=== PATIENT | male | born 1940 | race Caucasian/White ===

== ENCOUNTER 2016-11-18 16:18 | Inpatient (IN) | payer MEDICARE ==
[2016-11-18] MEDS ORDERED: MAGNESIUM SULFATE-D5W PMX 1 GM in DEXTROSE/WATER 1 100ML.BAG IVPB STA (17:02)
[2016-11-18] MEDS ORDERED: SODIUM CHLORIDE 0.9% 1,000 ML IV STA (17:02)
[2016-11-18] MEDS ORDERED: methylPREDNISolone SOD SUCCI 125 MG/2 ML VIAL IV STA (17:02)
--- NOTE | 2016-11-18 17:05 | ED ---
SOB HPI - General Chief Complaint: Shortness of Breath Stated Complaint: DEYANIRA Time Seen by Provider: 11/18/16 16:56 Source: patient, RN notes reviewed Mode of arrival: ambulatory Limitations: no limitations - History of Present Illness Initial Comments: This is a 76-year-old male with a history of heart disease who states he had 3 or 4 days of shortness of breath with chest tightness. Tightness is 4-5/10 in severity. He has had a cough of white phlegm no fevers chills or sweats he is a former smoker but has never been diagnosed with COPD he states. No other complaints MD Complaint: shortness of breath, cough - Related Data Home Medications Medication Instructions Recorded Confirmed Calcitriol [Rocaltrol] 0.25 mcg PO MO 11/18/16 11/18/16 Fish Oil/Dha/Epa [Fish Oil 1,200 2 cap PO DAILY 11/18/16 11/18/16 mg Fish Oil] amLODIPine [Norvasc] 10 mg PO DAILY 11/18/16 11/18/16 hydrALAZINE HCL 50 mg PO TID 11/18/16 11/18/16 Allergies Allergy/AdvReac Type Severity Reaction Status Date / Time No Known Allergies Allergy Verified 11/18/16 18:21 Review of Systems ROS Statement: Those systems with pertinent positive or pertinent negative responses have been documented in the HPI. ROS Other: All systems not noted in ROS Statement are negative. Past Medical History Past Medical History: Coronary Artery Disease (CAD), GI Bleed, Hyperlipidemia, Hypertension, Myocardial Infarction ([place]), Vascular Disorder Additional Past Medical History / Comment(s): OTHER HX: [place] 2013, GI bleed, BLOOD IN STOOL, anemia, iron deficiency anemia, diverticulosis, colon polyp ( removed), PVD-pt needs bilateral leg bypass surgery but cannot have surgery unless he quits. smoking, neck fx as a young person with seizures following last one years ago. Last Myocardial Infarction Date:: 2013 History of Any Multi-Drug Resistant Organisms: None Reported Past Surgical History: Heart Catheterization With Stent Additional Past Surgical History / Comment(s): ccath with stents in 2007 and 2013, 11/19/14 EGD with bx and Colonoscopy with polypectomy, bilateral cataract removal with lens implants. Past Anesthesia/Blood Transfusion Reactions: No Reported Reaction Date of Last Stent Placement:: 2013 Past Psychological History: Anxiety Additional Psychological History / Comment(s): MILD anxiety-never tx. Pt lives with his son Jae. He has a cane which he uses prn. He is independent with his ADLs. He drives a car. He has no home care agency. Smoking Status: Current every day smoker Past Alcohol Use History: None Reported Additional Past Alcohol Use History / Comment(s): Patient smokes a 1/2 a pack of cigarettes Past Drug Use History: None Reported - Past Family History Father Family Medical History: Myocardial Infarction ([place]) Additional Family Medical History / Comment(s): Father at age 59 of a [place] Mother Family Medical History: CVA/TIA Additional Family Medical History / Comment(s): Mother of a brain hemorrage. General Exam - General Exam Comments Initial Comments: This is a well-developed well-nourished awake alert oriented history male Limitations: no limitations General appearance: alert, in no apparent distress Head exam: Present: atraumatic, normocephalic, normal inspection Eye exam: Present: normal appearance, PERRL, EOMI. Absent: scleral icterus, conjunctival injection, periorbital swelling ENT exam: Present: mucous membranes dry Neck exam: Present: normal inspection. Absent: tenderness, meningismus, lymphadenopathy Respiratory exam: Present: wheezes, accessory muscle use, decreased breath sounds. Absent: respiratory distress, rales, rhonchi, stridor Cardiovascular Exam: Present: regular rate, normal rhythm, normal heart sounds. Absent: systolic murmur, diastolic murmur, rubs, gallop, clicks GI/Abdominal exam: Present: soft, normal bowel sounds. Absent: distended, tenderness, guarding, rebound, rigid Extremities exam: Present: normal inspection, full ROM, normal capillary refill. Absent: tenderness, pedal edema, joint swelling, calf tenderness Back exam: Present: normal inspection Neurological exam: Present: alert, oriented X3, CN II-XII intact Psychiatric exam: Present: normal affect, normal mood Skin exam: Present: warm, dry, intact, normal color. Absent: rash Course Vital Signs 11/18/16 11/18/16 11/18/16 16:53 17:28 18:02 Temperature 97.5 F L Pulse Rate 90 86 84 Respiratory 20 16 15 Rate Blood Pressure 207/95 229/109 176/88 O2 Sat by Pulse 96 97 98 Oximetry 11/18/16 11/18/16 18:04 20:34 Temperature Pulse Rate 66 Respiratory 16 18 Rate Blood Pressure 225/100 O2 Sat by Pulse 95 Oximetry - Reevaluation(s) Reevaluation #1: 11/18/16 20:53 I did discuss with the patient family members regarding the findings patient initially refused admission and was to be discharged but after discussion with family members his changes minute will stay for evaluation did discuss the case with Dr. Bowen with the patient and family members. Nephrology and cardiology will be consulted. Medical Decision Making - Lab Data Result diagrams: 11/18/16 17:24 11/18/16 17:24 Lab Results 11/18/16 11/18/16 11/18/16 Range/Units 17:24 17:24 17:24 WBC 5.6 (3.8-10.6) k/uL RBC 4.76 (4.30-5.90) m/uL Hgb 14.1 (13.0-17.5) gm/dL Hct 41.4 (39.0-53.0) % MCV 87.0 (80.0-100.0) fL MCH 29.7 (25.0-35.0) pg MCHC 34.1 (31.0-37.0) g/dL RDW 13.7 (11.5-15.5) % Plt Count 151 (150-450) k/uL Neutrophils % (Manual) 51.0 % Band Neutrophils % 3.0 % Lymphocytes % (Manual) 26.0 % Monocytes % (Manual) 17.0 % Eosinophils % (Manual) 3.0 % Neutrophils # (Manual) 3.0 (1.3-7.7) k/uL Lymphocytes # (Manual) 1.5 (1.0-4.8) k/uL Monocytes # (Manual) 1.0 (0-1.0) k/uL Eosinophils # (Manual) 0.2 (0-0.7) k/uL Nucleated RBCs 0 (0-0) /100 WBC Manual Slide Review Performed RBC Morphology Normal PT (9.0-12.0) sec INR (<1.1) APTT (22.0-30.0) sec Sodium 143 (137-145) mmol/L Potassium 4.7 (3.5-5.1) mmol/L Chloride 106 (98-107) mmol/L Carbon Dioxide 22 (22-30) mmol/L Anion Gap 15 mmol/L BUN 39 H (9-20) mg/dL Creatinine 3.90 H (0.66-1.25) mg/dL Est GFR (MDRD) Af Amer 18 (>60 ml/min/1.73 sqM) Est GFR (MDRD) Non-Af 15 (>60 ml/min/1.73 sqM) Glucose 96 (74-99) mg/dL Calcium 8.4 (8.4-10.2) mg/dL Magnesium 2.1 (1.6-2.3) mg/dL Total Bilirubin 0.7 (0.2-1.3) mg/dL AST 18 (17-59) U/L ALT 25 (21-72) U/L Alkaline Phosphatase 68 (38-126) U/L Total Creatine Kinase 33 L (55-170) U/L CK-MB (CK-2) 0.5 (0.0-2.4) ng/mL CK-MB (CK-2) Rel Index 1.5 Troponin I 0.038 H* (0.000-0.034) ng/mL NT-Pro-B Natriuret Pep pg/mL Total Protein 7.4 (6.3-8.2) g/dL Albumin 4.3 (3.5-5.0) g/dL 11/18/16 11/18/16 Range/Units 17:24 17:24 WBC (3.8-10.6) k/uL RBC (4.30-5.90) m/uL Hgb (13.0-17.5) gm/dL Hct (39.0-53.0) % MCV (80.0-100.0) fL MCH (25.0-35.0) pg MCHC (31.0-37.0) g/dL RDW (11.5-15.5) % Plt Count (150-450) k/uL Neutrophils % (Manual) % Band Neutrophils % % Lymphocytes % (Manual) % Monocytes % (Manual) % Eosinophils % (Manual) % Neutrophils # (Manual) (1.3-7.7) k/uL Lymphocytes # (Manual) (1.0-4.8) k/uL Monocytes # (Manual) (0-1.0) k/uL Eosinophils # (Manual) (0-0.7) k/uL Nucleated RBCs (0-0) /100 WBC Manual Slide Review RBC Morphology PT 10.6 (9.0-12.0) sec INR 1.1 (<1.1) APTT 24.1 (22.0-30.0) sec Sodium (137-145) mmol/L Potassium (3.5-5.1) mmol/L Chloride (98-107) mmol/L Carbon Dioxide (22-30) mmol/L Anion Gap mmol/L BUN (9-20) mg/dL Creatinine (0.66-1.25) mg/dL Est GFR (MDRD) Af Amer (>60 ml/min/1.73 sqM) Est GFR (MDRD) Non-Af (>60 ml/min/1.73 sqM) Glucose (74-99) mg/dL Calcium (8.4-10.2) mg/dL Magnesium (1.6-2.3) mg/dL Total Bilirubin (0.2-1.3) mg/dL AST (17-59) U/L ALT (21-72) U/L Alkaline Phosphatase (38-126) U/L Total Creatine Kinase (55-170) U/L CK-MB (CK-2) (0.0-2.4) ng/mL CK-MB (CK-2) Rel Index Troponin I (0.000-0.034) ng/mL NT-Pro-B Natriuret Pep 2790 pg/mL Total Protein (6.3-8.2) g/dL Albumin (3.5-5.0) g/dL - EKG Data -: EKG Interpreted by Ri EKG shows normal: sinus rhythm (Sinus rhythm rate of 88. Interval 146 QRS duration 140 daily since QTC of 406/491 right bundle-branch block no acute ST-T wave changes a unifocal PVC is noted) Disposition Clinical Impression: Atypical chest pain, Bronchospasm, CHF (congestive heart failure), Renal insufficiency syndrome Disposition: ADMITTED IP TO THIS [facility] Condition: Stable
[2016-11-18 17:44] LABS: Aty Lym Flag Slight; CH 29.4; HCT 41.4 % (39.0-53.0); HDW 2.83; HGB 14.1 gm/dL (13.0-17.5); MCH 29.7 pg (25.0-35.0); MCHC 34.1 g/dL (31.0-37.0); Mean Platelet Volume 9.4; RBC 4.76 m/uL (4.30-5.90); RDW 13.7 % (11.5-15.5); WBC 5.6 k/uL (3.8-10.6); WBC (Perox) 5.27
[2016-11-18 17:45] LABS: Calcium 8.4 mg/dL (8.4-10.2); Magnesium 2.1 mg/dL (1.6-2.3); Potassium 4.7 mmol/L (3.5-5.1); Total Bilirubin 0.7 mg/dL (0.2-1.3); Total Protein 7.4 g/dL (6.3-8.2)
--- NOTE | 2016-11-18 17:53 | XR ---
EXAMINATION TYPE: XR chest 2V DATE OF EXAM: 11/18/2016 5:45 PM COMPARISON: 02/28/2015 HISTORY: Difficulty breathing TECHNIQUE: Frontal and lateral views of the chest are obtained. FINDINGS: Heart and mediastinum are normal. Lungs are clear. Diaphragm is normal. Bony thorax is int act. The pulmonary vascularity is normal. IMPRESSION: Normal chest. No change.
[2016-11-18 17:56] LABS: INR 1.1 (<1.1); Partial Thromboplastin Time 24.1 sec (22.0-30.0); Prothrombin Time 10.6 sec (9.0-12.0)
[2016-11-18 18:09] LABS: Creatine Kinase MB 0.5 ng/mL (0.0-2.4)
[2016-11-18 18:18] LABS: Add Differential Manual Differential
[2016-11-18 18:23] LABS: Manual Review Performed; Nucleated Red Blood Cells 0 /100 WBC (0-0); RBC Morphology Normal; Total Cells Counted 100
[2016-11-18 18:24] LABS: Troponin I 0.038 ng/mL (0.000-0.034)
[2016-11-18] MEDS ORDERED: hydrALAZINE HCL 20 MG/ML 1 ML VIAL IVP STA ×2 (20:59→22:39)
[2016-11-18] MEDS ORDERED: HEPARIN SODIUM,PORCINE 5,000 UNIT/ML 1 ML VIAL IV ONE (21:00)
[2016-11-18] MEDS ORDERED: NITROGLYCERIN OINT 1 INCH/GM PACKET TOPICAL STA (22:06)
[2016-11-18] MEDS: HEPARIN SODIUM,PORCINE/D5W PMX 25,000 UNIT in DEXTROSE/WATER 1 500ML.BAG IV SCH (22:19)
[2016-11-18 23:33] VITALS: BMI 26.2
[2016-11-18] MEDS: hydrALAZINE HCL 50 MG TAB PO SCH (23:46)
[2016-11-18] MEDS: SODIUM CHLORIDE 0.9% 1,000 ML IV SCH (23:47)
[2016-11-18] MEDS: NITROGLYCERIN OINT 1 INCH/GM PACKET TOPICAL SCH (23:49)
[2016-11-19] MEDS: methylPREDNISolone SOD SUCCI 125 MG/2 ML VIAL IV SCH ×5 (00:57→23:42)
[2016-11-19] MEDS: IPRATROPIUM-ALBUTEROL 3 ML NEB INHALATION SCH ×6 (01:55→20:38)
[2016-11-19 06:09] LABS: Glucose,Whole Blood 214 mg/dL (75-99)
[2016-11-19] MEDS: NITROGLYCERIN OINT 1 INCH/GM PACKET TOPICAL SCH ×3 (06:15→23:42)
[2016-11-19] MEDS: INSULIN LISPRO (humaLOG) 300 UNIT/3 ML VIAL SQ SCH ×4 (06:31→21:23)
[2016-11-19 08:11] LABS: Hemoglobin A1C 5.7 % (4.2-6.1)
[2016-11-19] MEDS ORDERED: FISH OIL PO SCH (09:00)
[2016-11-19] MEDS ORDERED: DHA PO SCH (09:00)
[2016-11-19] MEDS ORDERED: EPA PO SCH (09:00)
[2016-11-19] MEDS: amLODIPine 10 MG TAB PO SCH (09:27)
[2016-11-19] MEDS: hydrALAZINE HCL 50 MG TAB PO SCH ×3 (09:28→21:23)
--- NOTE | 2016-11-19 10:05 | P.CRDCN ---
History of Present Illness Consult date: 11/19/16 Requesting physician: Edward Bowen Consult reason: chest pain, shortness of breath Chief complaint: Shortness of breath and chest pressure History of present illness: This is a 76-year-old gentleman with history of coronary artery disease, patient underwent stent placement of the mid RCA in 2007, he also has history of hypertension, hyperlipidemia, renal failure, nicotine dependence, and emphysema. He presents to the hospital with symptoms of chest pressure and heaviness with associated worsening shortness of breath. He states he's also been having a persistent cough, nonproductive. Denies any fever or chills at home. At home the patient was taking hydralazine along with Norvasc for blood pressure, he was not taking any other medications. EKG on admission showed normal sinus rhythm with a bundle-branch block pattern and occasional PVCs. Laboratory data was reviewed, CBC normal. Potassium 4.7, BUN 39, creatinine 3.9. Magnesium level 2.1. Initial troponin 0.038. BNP [id number]. Blood pressure on arrival here 207/90, heart rate in the 90s. 96% on room air. Blood pressure this morning 178/84. At the time of my examination this morning , patient is still short of breath, continues to have a nonproductive cough, scattered wheezing throughout his lung fish. Denies any chest pain. Past Medical History Past Medical History: Coronary Artery Disease (CAD), Heart Failure, GI Bleed, Hyperlipidemia, Hypertension, Myocardial Infarction ([place]), Vascular Disorder Additional Past Medical History / Comment(s): OTHER HX: [place] 2013, GI bleed, BLOOD IN STOOL, anemia, iron deficiency anemia, diverticulosis, colon polyp ( removed), PVD-pt needs bilateral leg bypass surgery but cannot have surgery unless he quits. smoking, neck fx as a young person with seizures following last one years ago. Last Myocardial Infarction Date:: 2013 History of Any Multi-Drug Resistant Organisms: None Reported Past Surgical History: Heart Catheterization With Stent Additional Past Surgical History / Comment(s): ccath with stents in 2007 and 2013, 11/19/14 EGD with bx and Colonoscopy with polypectomy, bilateral cataract removal with lens implants. Past Anesthesia/Blood Transfusion Reactions: No Reported Reaction Date of Last Stent Placement:: 2013 Past Psychological History: Anxiety Additional Psychological History / Comment(s): MILD anxiety-never tx. Pt lives with his son Jae. He has a cane which he uses prn. He is independent with his ADLs. He drives a car. He has no home care agency. Smoking Status: Current every day smoker Past Alcohol Use History: None Reported Additional Past Alcohol Use History / Comment(s): Patient smokes a 1/2 a pack of cigarettes Past Drug Use History: None Reported - Past Family History Father Family Medical History: Myocardial Infarction ([place]) Additional Family Medical History / Comment(s): Father at age 59 of a [place] Mother Family Medical History: CVA/TIA Additional Family Medical History / Comment(s): Mother of a brain hemorrage. Medications and Allergies Home Medications Medication Instructions Recorded Confirmed Type Calcitriol [Rocaltrol] 0.25 mcg PO MO 11/18/16 11/18/16 History Fish Oil/Dha/Epa [Fish Oil 1,200 2 cap PO DAILY 11/18/16 11/18/16 History mg Fish Oil] amLODIPine [Norvasc] 10 mg PO DAILY 11/18/16 11/18/16 History hydrALAZINE HCL 50 mg PO TID 11/18/16 11/18/16 History Allergies Allergy/AdvReac Type Severity Reaction Status Date / Time No Known Allergies Allergy Verified 11/18/16 18:21 Physical Exam Vitals: Vital Signs Temp Pulse Pulse Resp BP BP Pulse Ox 11/19/16 08:42 75 14 11/19/16 08:06 96.5 F L 75 14 178/84 97 11/19/16 04:23 111 H 11/19/16 04:00 97.2 F L 74 14 175/82 97 11/19/16 00:48 173/79 11/19/16 00:00 183/84 11/18/16 23:40 97 18 11/18/16 22:53 91 18 194/87 98 11/18/16 22:22 97.0 F L 97 18 203/88 95 11/18/16 21:33 82 18 190/87 98 11/18/16 21:03 79 18 203/97 98 Intake and Output 11/18/16 11/19/16 11/19/16 22:59 06:59 14:59 Intake Total 300 Output Total 150 150 Balance 150 -150 Intake: Oral 300 Output: Urine 150 150 Other: # Voids 1 Weight 78.1 kg 78.1 kg PHYSICAL EXAMINATION: HEENT: Head is atraumatic, normocephalic. Pupils equal, round. Neck is supple. There is no elevated jugular venous pressure. HEART EXAMINATION: Heart S1, S2 normal. No murmur or gallop heard. CHEST EXAMINATION: Lungs reveal decreased air exchange with scattered wheezes throughout ABDOMEN: Soft, nontender. Bowel sounds are heard. No organomegaly noted. EXTREMITIES: 1+ peripheral pulses with trace evidence of peripheral edema and no calf tenderness noted. NEUROLOGIC patient is awake, alert and oriented -3. . Results 11/18/16 17:24 11/18/16 17:24 Coagulation 11/19/16 Range/Units 03:53 APTT 53.5 H (22.0-30.0) sec Current Medications Generic Name Dose Route Start Last Admin Trade Name Freq PRN Reason Stop Dose Admin Albuterol/Ipratropium 3 ml 11/19/16 00:00 11/19/16 08:43 Duoneb 0.5 Mg-3 Mg/3 Ml Soln INHALATION 3 ml RT-Q4H SHERRIE Administration Amlodipine Besylate 10 mg 11/19/16 09:00 Norvasc PO DAILY SHERRIE Calcitriol 0.25 mcg 11/23/16 09:00 Rocaltrol PO MO SHERRIE Hydralazine HCl 50 mg 11/18/16 22:00 11/18/16 23:46 Apresoline PO 50 mg TID SHERRIE Administration Heparin Sodium/Dextrose 25,000 500 mls @ 18.5 mls/hr 11/18/16 21:00 11/18/16 22:19 unit/ IV Solution IV 12 units/kg/hr .Q24H SHERRIE 18.5 mls/hr Protocol Administration 12 UNITS/KG/HR Sodium Chloride 1,000 mls @ 20 mls/hr 11/18/16 21:00 11/18/16 23:47 Saline 0.9% IV 20 mls/hr .Q24H SHERRIE Administration Insulin Human Lispro 0 unit 11/19/16 07:30 11/19/16 06:31 Humalog SQ 3 unit ACHS SHERRIE Administration Protocol Methylprednisolone Sodium Succinate 60 mg 11/19/16 00:00 11/19/16 06:14 Solu-Medrol IV 60 mg Q6HR SHERRIE Administration Nitroglycerin 1 inch 11/19/16 00:00 11/19/16 06:15 Nitro-Bid Oint TOPICAL 1 inch Q6HR SHERRIE Administration Intake and Output 11/18/16 11/19/16 11/19/16 22:59 06:59 14:59 Intake Total 300 Output Total 150 150 Balance 150 -150 Intake: Oral 300 Output: Urine 150 150 Other: # Voids 1 Weight 78.1 kg 78.1 kg EKG Interpretations (text) EKG shows a normal sinus rhythm with occasional PVCs, right bundle branch block pattern. Assessment and Plan Plan: Assessment and plan #1 symptoms of progressively worsening shortness of breath with associated chest pressure, nonproductive cough. Chest pain atypical for acute coronary syndrome. Likely exacerbation of COPD. Patient currently on breathing treatments and steroids. Initial troponin 0.038. #2 uncontrolled hypertension #3 hyperlipidemia, untreated #4 history of coronary artery disease with prior RCA stent in 2007 #5 acute on chronic renal failure #6 nicotine dependence #7 COPD Plan We will obtain an echocardiogram with Doppler study. We will also obtain 2 subsequent troponin values. If the next troponin is negative, we will discontinue the IV heparin. Discontinue Nitropaste. Start the patient on a baby aspirin as well as a statin. Add beta cynthia to the patient's medication regime. Because of the patient's long-standing smoking history we will also request a noncontrast CT of the chest. Once the patient's lung status improves , consider stress test as an outpatient. Further recommendations to follow.
--- NOTE | 2016-11-19 11:01 | CT ---
EXAMINATION TYPE: CT chest wo con DATE OF EXAM: 11/19/2016 10:53 AM COMPARISON: NONE HISTORY: Atypical chest pain, History of smoking. CT DLP: 362.20 mGycm, Automated exposure control for dose reduction was used. CONTRAST: None TECHNIQUE: Axial images were obtained at 5 mm thick sections. Reconstructed images are reviewed on [employer] computer in the coronal plane. FINDINGS: Portion of the thyroid visualized is normal. No suspicious lung nodules or focal infiltrates are present. Some mild emphysematous changes evident. Some minimal compressive atelectasis is likely within the bilateral lung bases. No enlarged mediastinal or hilar adenopathy is evident. The ascending aorta diameter at the level o f the main pulmonary artery is 3.1 cm. The main pulmonary artery diameter at the bifurcation is 2.7 cm. Coronary artery calcification is present. Limited CT sections are obtained through the upper abdomen. Left kidney appears atrophic. IMPRESSIONS: 1. Minimal emphysematous change. 2. No acute abnormality. 3. Low Dose Screening CT chest available for smoking history with the proper clinical setting.
[2016-11-19] MEDS: METOPROLOL TARTRATE 25 MG TAB PO SCH ×2 (11:20→21:23)
[2016-11-19] MEDS: ASPIRIN 81 MG CHEW PO SCH (11:20)
--- NOTE | 2016-11-19 11:23 | P.HPIM ---
History of Present Illness 76-year-old male was admitted through the emergency room with complaints of chest pressure. Patient will be evaluated by Cardiology. Patient has renal insufficiency will be evaluated by Dr. Gonzalez. Patient states he feels improved from yesterday Review of Systems Cardiovascular: Reports chest pain Respiratory: Reports dyspnea Past Medical History Past Medical History: Coronary Artery Disease (CAD), Heart Failure, GI Bleed, Hyperlipidemia, Hypertension, Myocardial Infarction ([place]), Vascular Disorder Additional Past Medical History / Comment(s): OTHER HX: [place] 2013, GI bleed, BLOOD IN STOOL, anemia, iron deficiency anemia, diverticulosis, colon polyp ( removed), PVD-pt needs bilateral leg bypass surgery but cannot have surgery unless he quits. smoking, neck fx as a young person with seizures following last one years ago. Last Myocardial Infarction Date:: 2013 History of Any Multi-Drug Resistant Organisms: None Reported Past Surgical History: Heart Catheterization With Stent Additional Past Surgical History / Comment(s): ccath with stents in 2007 and 2013, 11/19/14 EGD with bx and Colonoscopy with polypectomy, bilateral cataract removal with lens implants. Past Anesthesia/Blood Transfusion Reactions: No Reported Reaction Date of Last Stent Placement:: 2013 Past Psychological History: Anxiety Additional Psychological History / Comment(s): MILD anxiety-never tx. Pt lives with his son Jae. He has a cane which he uses prn. He is independent with his ADLs. He drives a car. He has no home care agency. Smoking Status: Current every day smoker Past Alcohol Use History: None Reported Additional Past Alcohol Use History / Comment(s): Patient smokes a 1/2 a pack of cigarettes Past Drug Use History: None Reported - Past Family History Father Family Medical History: Myocardial Infarction ([place]) Additional Family Medical History / Comment(s): Father at age 59 of a [place] Mother Family Medical History: CVA/TIA Additional Family Medical History / Comment(s): Mother of a brain hemorrage. Medications and Allergies Home Medications Medication Instructions Recorded Confirmed Type Calcitriol [Rocaltrol] 0.25 mcg PO MO 11/18/16 11/18/16 History Fish Oil/Dha/Epa [Fish Oil 1,200 2 cap PO DAILY 11/18/16 11/18/16 History mg Fish Oil] amLODIPine [Norvasc] 10 mg PO DAILY 11/18/16 11/18/16 History hydrALAZINE HCL 50 mg PO TID 11/18/16 11/18/16 History Allergies Allergy/AdvReac Type Severity Reaction Status Date / Time No Known Allergies Allergy Verified 11/18/16 18:21 Physical Exam Vitals: Vital Signs Temp Pulse Pulse Resp BP BP Pulse Ox 11/19/16 11:11 96.9 F L 78 16 190/85 96 11/19/16 08:42 75 14 11/19/16 08:06 96.5 F L 75 14 178/84 97 11/19/16 04:23 111 H 11/19/16 04:00 97.2 F L 74 14 175/82 97 11/19/16 00:48 173/79 11/19/16 00:00 183/84 11/18/16 23:40 97 18 11/18/16 22:53 91 18 194/87 98 11/18/16 22:22 97.0 F L 97 18 203/88 95 11/18/16 21:33 82 18 190/87 98 11/18/16 21:03 79 18 203/97 98 Intake and Output 11/18/16 11/19/16 11/19/16 22:59 06:59 14:59 Intake Total 300 Output Total 150 325 Balance 150 -325 Intake: Oral 300 Output: Urine 150 325 Other: # Voids 1 Weight 78.1 kg 78.1 kg - Constitutional General appearance: average body habitus - EENT Eyes: PERRLA Ears: bilateral: normal - Respiratory Respiratory: bilateral: CTA - Cardiovascular Rhythm: regular - Gastrointestinal General gastrointestinal: soft - Integumentary Integumentary: normal - Neurologic Neurologic: CNII-XII intact - Psychiatric Psychiatric: A&O x's 3, appropriate affect, intact judgment & insight Results CBC & Chem 7: 11/18/16 17:24 11/18/16 17:24 Labs: Abnormal Lab Results - Last 24 Hours (Table) 11/19/16 11/19/16 Range/Units 03:53 06:07 APTT 53.5 H (22.0-30.0) sec POC Glucose (mg/dL) 214 H (75-99) mg/dL Chest x-ray: report reviewed CT scan - abdomen: report reviewed Thrombosis Risk Factor Assmnt - Choose All That Apply Each Risk Factor Represents 3 Points: Age 75 years or older, History of DVT/PE Thrombosis Risk Factor Assessment Total Risk Factor Score: 6 Thrombosis Risk Factor Assessment Level: High Risk Assessment and Plan Plan: assessment Chest pain elevated troponin Renal insufficiency syndrome COPD nicotine dependence History of coronary disease [place] with stents Hyperlipidemia Peripheral vascular disease Hypertension Plan Consultation with Dr. Gonzalez regarding renal insufficiency Continue consultation with cardiology
[2016-11-19 11:37] LABS: Glucose,Whole Blood 167 mg/dL (75-99)
--- NOTE | 2016-11-19 14:19 | P.NPCON ---
History of Present Illness - Reason for Consult chronic renal failure - History of Present Illness Reason for consultation: Chronic kidney disease History of present illness: Patient is a 76-year-old male seen in renal consultation for chronic kidney disease. Patient has chronic kidney disease stage IV with baseline creatinine near 3. Is elevated at 3.9 today. Etiology is not a sclerosis. He' s had long-standing chronic kidney disease and has refused any forms of renal replacement therapy. He presented with chest pain which is mostly resolved now. He was also dyspneic which is now improved. Does have a cough but denies phlegm. He denies any vomiting or diarrhea. His appetite is good. Admits to good urine output. No hematuria or dysuria. He denies use of NSAIDs. His blood pressures are on the higher side. Vital signs are stable. General: The patient appeared well nourished and normally developed. HEENT: Head exam is unremarkable. Neck is without jugular venous distension. LUNGS: Diffuse rhonchi at bases. Breath sounds decreased. HEART: Rate and Rhythm are regular. First and second heart sounds normal. No murmurs, rubs or gallops. ABDOMEN: Abdominal exam reveals normal bowel sounds. Non-tender and non- distended. No evidence of peritonitis. EXTREMITITES: No clubbing, cyanosis, or edema. Past Medical History Past Medical History: Coronary Artery Disease (CAD), Heart Failure, GI Bleed, Hyperlipidemia, Hypertension, Myocardial Infarction (OR), Vascular Disorder Additional Past Medical History / Comment(s): OTHER HX: OR 2013, GI bleed, BLOOD IN STOOL, anemia, iron deficiency anemia, diverticulosis, colon polyp ( removed), PVD-pt needs bilateral leg bypass surgery but cannot have surgery unless he quits. smoking, neck fx as a young person with seizures following last one years ago. Last Myocardial Infarction Date:: 2013 History of Any Multi-Drug Resistant Organisms: None Reported Past Surgical History: Heart Catheterization With Stent Additional Past Surgical History / Comment(s): ccath with stents in 2007 and 2013, 11/19/14 EGD with bx and Colonoscopy with polypectomy, bilateral cataract removal with lens implants. Past Anesthesia/Blood Transfusion Reactions: No Reported Reaction Date of Last Stent Placement:: 2013 Past Psychological History: Anxiety Additional Psychological History / Comment(s): MILD anxiety-never tx. Pt lives with his son Jae. He has a cane which he uses prn. He is independent with his ADLs. He drives a car. He has no home care agency. Smoking Status: Current every day smoker Past Alcohol Use History: None Reported Additional Past Alcohol Use History / Comment(s): Patient smokes a 1/2 a pack of cigarettes Past Drug Use History: None Reported - Past Family History Father Family Medical History: Myocardial Infarction (OR) Additional Family Medical History / Comment(s): Father at age 59 of a OR Mother Family Medical History: CVA/TIA Additional Family Medical History / Comment(s): Mother of a brain hemorrage. Medications and Allergies Home Medications Medication Instructions Recorded Confirmed Type Calcitriol [Rocaltrol] 0.25 mcg PO MO 11/18/16 11/18/16 History Fish Oil/Dha/Epa [Fish Oil 1,200 2 cap PO DAILY 11/18/16 11/18/16 History mg Fish Oil] amLODIPine [Norvasc] 10 mg PO DAILY 11/18/16 11/18/16 History hydrALAZINE HCL 50 mg PO TID 11/18/16 11/18/16 History Allergies Allergy/AdvReac Type Severity Reaction Status Date / Time No Known Allergies Allergy Verified 11/18/16 18:21 Physical Exam Vitals: Vital Signs Temp Pulse Pulse Resp BP BP Pulse Ox 11/19/16 12:15 16 11/19/16 11:11 96.9 F L 78 16 190/85 96 11/19/16 09:00 104 H 11/19/16 08:45 106 H 11/19/16 08:42 75 14 11/19/16 08:06 96.5 F L 75 14 178/84 97 11/19/16 04:23 111 H 11/19/16 04:00 97.2 F L 74 14 175/82 97 11/19/16 00:48 173/79 11/19/16 00:00 183/84 11/18/16 23:40 97 18 11/18/16 22:53 91 18 194/87 98 11/18/16 22:22 97.0 F L 97 18 203/88 95 11/18/16 21:33 82 18 190/87 98 11/18/16 21:03 79 18 203/97 98 Intake and Output 11/18/16 11/19/16 11/19/16 22:59 06:59 14:59 Intake Total 300 236 Output Total 150 325 Balance 150 -89 Intake: Oral 300 236 Output: Urine 150 325 Other: # Voids 1 Weight 78.1 kg 78.1 kg Results - Lab Results Most recent lab results Calcium 8.4 mg/dL (8.4-10.2) 11/18/16 17:24 Magnesium 2.1 mg/dL (1.6-2.3) 11/18/16 17:24 11/18/16 17:24 11/18/16 17:24 Assessment and Plan Plan: Assessment: #1. Acute kidney injury on Chronic kidney disease stage IV secondary to nephrosclerosis with baseline creatinine near 3. His creatinine has been quite labile and was up to 4.9 in December 2014 and at 2.7 on 04/17/2016. #2. Chest pain. Rule out cardiac etiology. #3. History of coronary artery disease status post stent placement. #4. Hypertension with chronic kidney disease. Uncontrolled. #5. Chronic kidney disease mineral bone disease. Plan: Increase hydralazine to 75 mg 3 times daily. Renal diet. Avoid nephrotoxic agents and hypotensive episodes. Cardiology following. Maintain calcitriol weekly. Repeat electrolytes in the morning. Patient refuses any form of renal replacement therapy. Thank you for the consultation. I will continue to follow the patient with you during his hospital stay.
[2016-11-19 16:47] LABS: Glucose,Whole Blood 166 mg/dL (75-99)
[2016-11-19] MEDS: ATORVASTATIN 20 MG TAB PO SCH (21:23)
[2016-11-19] MEDS: SODIUM CHLORIDE 0.9% 1,000 ML IV SCH (21:24)
[2016-11-19] MEDS: HEPARIN SODIUM,PORCINE/D5W PMX 25,000 UNIT in DEXTROSE/WATER 1 500ML.BAG IV SCH (21:25)
[2016-11-19 21:36] LABS: Glucose,Whole Blood 169 mg/dL (75-99)
[2016-11-19 22:23] LABS: Amorphous Sediment,Urine Rare /hpf; Appearance,Urine Clear (Clear); Bacteria,Urine Rare /hpf; Bilirubin,Urine Negative (Negative); Glucose,Urine (UA) 2+ (Negative); Ketones,Urine Negative (Negative); Leukocyte Esterase,Urine Negative (Negative); Mucus,Urine Rare /hpf; Nitrite,Urine Negative (Negative); PH, Urine 5.5 (5.0-8.0); Particle Count 4057; Protein,Urine 3+ (Negative); RBC,Urine 1 /hpf (0-5); Specific Gravity,Urine 1.013 (1.001-1.035); Squamous Epithelial Cell,Urine <1 /hpf (0-4); UA Billing (MACRO vs. MICRO) MICRO; Urobilinogen,Urine <2.0 mg/dL (<2.0); WBC,Urine 1 /hpf (0-5)
[2016-11-20] MEDS: IPRATROPIUM-ALBUTEROL 3 ML NEB INHALATION SCH ×6 (03:27→19:46)
[2016-11-20] MEDS: methylPREDNISolone SOD SUCCI 125 MG/2 ML VIAL IV SCH ×2 (06:20→11:49)
[2016-11-20 06:22] LABS: Calcium 8.2 mg/dL (8.4-10.2)
[2016-11-20] MEDS: NITROGLYCERIN OINT 1 INCH/GM PACKET TOPICAL SCH ×3 (06:22→18:15)
[2016-11-20] MEDS: INSULIN LISPRO (humaLOG) 300 UNIT/3 ML VIAL SQ SCH ×4 (06:23→20:56)
[2016-11-20 06:25] LABS: Potassium 4.4 mmol/L (3.5-5.1)
[2016-11-20 06:32] LABS: Glucose,Whole Blood 160 mg/dL (75-99)
[2016-11-20] MEDS: hydrALAZINE HCL 50 MG TAB PO SCH ×3 (09:29→20:48)
[2016-11-20] MEDS: amLODIPine 10 MG TAB PO SCH (09:30)
[2016-11-20] MEDS: ASPIRIN 81 MG CHEW PO SCH (09:30)
[2016-11-20] MEDS: METOPROLOL TARTRATE 25 MG TAB PO SCH ×2 (09:30→20:49)
--- NOTE | 2016-11-20 09:42 | ECHOF ---
Referral Reason:chest pain MEASUREMENTS -------- HEIGHT: 172.7 cm WEIGHT: 78.0 kg BP: 178/84 RVIDd: 3.6 cm (< 3.3) IVSd: 1.5 cm (0.6 - 1.1) LVIDd: 5.2 cm (3.9 - 5.3) LVPWd: 1.5 cm (0.6 - 1.1) IVSs: 1.9 cm LVIDs: 3.1 cm LVPWs: 2.2 cm LA Diam: 4.1 cm (2.7 - 3.8) LAESV Index (A-L): 40.54 ml/m Ao Diam: 3.0 cm (2.0 - 3.7) AV Cusp: 2.0 cm (1.5 - 2.6) LA Diam: 4.1 cm (2.7 - 3.8) MV EXCURSION: 17.961 mm (> 18.000) MV EF SLOPE: 137 mm/s (70 - 150) EPSS: 0.5 cm MV E Bhaskar: 0.64 m/s MV DecT: 175 ms MV A Bhaskar: 1.04 m/s MV E/A Ratio: 0.61 FINDINGS -------- Sinus rhythm. This was a technically good study. There is moderate concentric left ventricular hypertrophy. Overall left ventricular systolic function is normal with, an EF between 55 - 60 %. The right ventricle is mildly enlarged. LA is severely dilated >40 ml/m2 The right atrium is normal in size. Aneurysmal Interatrial septum. Aortic valve is trileaflet and is mildly thickened. The mitral valve leaflets are mildly thickened. Mild mitral annular calcification present. Mild mitral regurgitation is present. Trace tricuspid regurgitation present. Trace/mild (physiologic) pulmonic regurgitation. The aortic root size is normal. Normal inferior vena cava with normal inspiratory collapse consistent with estimated right atrial pressure of 5 mmHg. There is no pericardial effusion. CONCLUSIONS -------- 1. Sinus rhythm. 2. The mitral valve leaflets are mildly thickened. 3. Mild mitral annular calcification present. 4. Mild mitral regurgitation is present. 5. Trace tricuspid regurgitation present. 6. Trace/mild (physiologic) pulmonic regurgitation. 7. The aortic root size is normal. 8. Normal inferior vena cava with normal inspiratory collapse consistent with estimated right atrial pressure of 5 mmHg. 9. There is no pericardial effusion. 10. This was a technically good study. 11. There is moderate concentric left ventricular hypertrophy. 12. Overall left ventricular systolic function is normal with, an EF between 55 - 60 %. 13. The right ventricle is mildly enlarged. 14. LA is severely dilated >40 ml/m2 15. The right atrium is normal in size. 16. Aneurysmal Interatrial septum. 17. Aortic valve is trileaflet and is mildly thickened. CONSTRUCTION ANALYST: Adrián Fuentes RDCS
[2016-11-20] MEDS: SODIUM BICARBONATE TAB 650 MG TAB PO SCH ×2 (11:50→21:40)
[2016-11-20 12:06] LABS: Glucose,Whole Blood 142 mg/dL (75-99)
[2016-11-20 16:45] LABS: Glucose,Whole Blood 221 mg/dL (75-99)
[2016-11-20] MEDS: methylPREDNISolone SOD SUCCI 40 MG/ML 1 ML VIAL IV SCH ×2 (17:01→23:47)
--- NOTE | 2016-11-20 17:13 | PN ---
DATE OF SERVICE: 11/20/2016 This 76-year-old gentleman who was admitted with chest pressure also has COPD. Cardiology is evaluating the patient. Troponins are almost negative at this time. A chest CT scan has also been done which showed minimal emphysematous changes. Two-D echo showed ejection fraction around 50% to 60% with severe LA dilatation, about more than 4 cm, and aneurysm in the interatrial septum. Cardiology is following the patient closely. Past medical history reviewed. REVIEW OF SYSTEMS: CARDIOVASCULAR: No angina or palpitations. RESPIRATORY SYSTEM: As mentioned earlier. GI: As mentioned earlier. : No dysuria. NERVOUS SYSTEM: No numbness or weakness. Current medications are reviewed and include: 1. DuoNeb q.i.d. and p.r.n. 2. Norvasc 10 mg daily. 3. Aspirin 81 mg daily. 4. Lipitor 20 mg at bedtime. 5. Rocaltrol 0.25 6. Apresoline 50 mg t.i.d. 7. Humalog scale. 8. Solu-Medrol 60 IV q. 9. Lopressor. 10. Nitro-Bid ointment. 11. Sodium bicarb. PHYSICAL EXAMINATION: Patient is alert and oriented x3. Pulse 59, blood pressure 160/67, respiration 14, temperature 96.8, pulse ox 98% on 4 L. HEENT: Conjunctivae normal. NECK: No jugular venous distention. CARDIOVASCULAR SYSTEM: S1, S2 muffled. RESPIRATORY: Breath sounds diminished at the bases. Bilateral scattered rhonchi and crackles. ABDOMEN: Soft, nontender. No mass palpable. LEGS: No edema. No swelling. NERVOUS SYSTEM: Higher functions as mentioned earlier. Moves all 4 limbs. No focal motor or sensory deficit. LYMPHATICS: No lymph node palpable in neck, axillae or groin. SKIN: No ulcer, rash, bleeding. LABS AT THIS TIME: Sodium 143, potassium 4.4. Creatinine is 3.91. ASSESSMENT: 1. Chest pain for evaluation, possible unstable angina. 2. Indeterminate troponins. 3. Chronic obstructive pulmonary disease, acute exacerbation. 4. Chronic kidney disease, stage IV. 5. History of coronary artery disease and myocardial infarction with stents. 6. Hyperlipidemia. 7. Peripheral vascular disease. 8. Hypertension. 9. FULL CODE. 10. Increased random blood sugar. RECOMMENDATIONS AND DISCUSSION: In this 76-year-old gentleman who presented with multiple complex medical issues, we will monitor the patient closely, continue the current medications, continue symptomatic treatment. Otherwise, troponins are noted. Follow close with Cardiology. Bronchodilators. Will reduce the dose of steroids. Pulmonary followup. Guarded prognosis because of multiple complex medical issues. Further recommendations to follow. Discussed with the patient. Prognosis is guarded. Patient apparently had a stress test about a year ago. Will continue to monitor. Further recommendations to follow. MTDD
[2016-11-20] MEDS: PANTOPRAZOLE 40 MG TABLET PO SCH (18:16)
--- NOTE | 2016-11-20 18:59 | PN ---
This patient was admitted with chest pain. Clinically patient's chest pains are suggestive of atypical angina. Patient has an acute exacerbation of underlying chronic obstructive pulmonary disease. Chest CT does not show any evidence of significant abnormality. I will continue the current medications Echocardiogram reveals overall normal left ventricular systolic function.
[2016-11-20] MEDS: SYMBICORT 160-4.5 MCG INHALER INHALATION SCH (19:46)
[2016-11-20 20:32] LABS: Glucose,Whole Blood 222 mg/dL (75-99)
[2016-11-20] MEDS: ATORVASTATIN 20 MG TAB PO SCH ×2 (20:48→20:55)
[2016-11-20] MEDS: HEPARIN SODIUM,PORCINE 5,000 UNIT/ML 1 ML VIAL SQ SCH (20:55)
[2016-11-20] MEDS ORDERED: MELATONIN 3 MG TABLET PO SCH (22:00)
[2016-11-20] MEDS: SODIUM CHLORIDE 0.9% 1,000 ML IV SCH (22:31)
[2016-11-21] MEDS: IPRATROPIUM-ALBUTEROL 3 ML NEB INHALATION SCH ×4 (00:16→11:43)
[2016-11-21 05:48] LABS: Glucose,Whole Blood 155 mg/dL (75-99)
[2016-11-21] MEDS: PANTOPRAZOLE 40 MG TABLET PO SCH (06:28)
[2016-11-21] MEDS: INSULIN LISPRO (humaLOG) 300 UNIT/3 ML VIAL SQ SCH ×2 (06:28→12:31)
[2016-11-21 07:09] LABS: Basophils % (A) 0 %; Eosinophils % (A) 0 %; HCT 34.4 % (39.0-53.0); HGB 11.7 gm/dL (13.0-17.5); Luc # (Auto) 0.07; Luc % (Auto) 1; Lymphocytes # (A) 0.4 k/uL (1.0-4.8); Lymphocytes % (A) 4 %; MCH 29.9 pg (25.0-35.0); MCHC 33.9 g/dL (31.0-37.0); MCV 88.3 fL (80.0-100.0); Mean Platelet Volume 9.8; Monocytes # (A) 0.2 k/uL (0-1.0); Monocytes % (A) 2 %; Neutrophils # (A) 8.7 k/uL (1.3-7.7); Neutrophils % (A) 93 %; RDW 13.8 % (11.5-15.5); WBC 9.3 k/uL (3.8-10.6); WBC (Perox) 10.04
[2016-11-21 07:28] LABS: Calcium 8.1 mg/dL (8.4-10.2)
[2016-11-21 08:41] VITALS: TEMP 96.8
[2016-11-21] MEDS: SYMBICORT 160-4.5 MCG INHALER INHALATION SCH (08:41)
[2016-11-21] MEDS: ASPIRIN 81 MG CHEW PO SCH (08:41)
[2016-11-21] MEDS: hydrALAZINE HCL 50 MG TAB PO SCH (08:41)
[2016-11-21] MEDS: methylPREDNISolone SOD SUCCI 40 MG/ML 1 ML VIAL IV SCH (08:42)
[2016-11-21] MEDS: HEPARIN SODIUM,PORCINE 5,000 UNIT/ML 1 ML VIAL SQ SCH (08:42)
[2016-11-21] MEDS: amLODIPine 10 MG TAB PO SCH (08:42)
[2016-11-21] MEDS: SODIUM BICARBONATE TAB 650 MG TAB PO SCH (08:42)
[2016-11-21] MEDS: METOPROLOL TARTRATE 25 MG TAB PO SCH (08:42)
--- NOTE | 2016-11-21 08:54 | PN ---
The patient is seen for followup for CKD and acute kidney injury on top of chronic kidney disease. Patient continues to refuse any kind of renal replacement therapy. His creatinine is at 3.78, which is slightly better from 3.9 on the initial admission. On examination, blood pressure is 150/74, heart rate 71 per minute. He is afebrile. EXAMINATION OF THE HEART: S1 and S2. EXAMINATION OF THE LUNGS: Bilateral breath sounds are heard. Decreased breath sounds at the bases. ABDOMEN: Soft, nontender. Examination of the lower extremities shows no significant edema. DRILL RUNNER exam is grossly intact. Labs show sodium 143, potassium 4.0, BUN 64, serum creatinine 3.78. Hemoglobin 11.7 g/dL. ASSESSMENT: 1. Acute kidney injury, prerenal, seems to have improved. 2. Chronic kidney disease, NKF stage IV to V with no plans for renal replacement therapy. 3. Dyslipidemia. 4. Chest pain, currently stable and resolved. 5. Chronic obstructive pulmonary disease with acute exacerbation. 6. Chronic kidney disease bone mineral disorder maintained on Rocaltrol. PLAN: Continue current medications, no changes at this time.
[2016-11-21 12:02] LABS: Glucose,Whole Blood 129 mg/dL (75-99)
[2016-11-21 13:00] VITALS: BP 147/66; PULSE 71; RESP 18
--- NOTE | 2016-11-21 20:04 | DS ---
DATE OF ADMISSION: 11/18/2016 DATE OF DISCHARGE: 11/21/2016 FINAL DIAGNOSES: 1. Chest pain, possibly unstable angina or musculoskeletal. 2. Indeterminate troponins. 3. Chronic obstructive pulmonary disease, acute exacerbation. 4. Chronic kidney disease stage IV. 5. History of coronary artery disease myocardial infarction and stent. 6. Hyperlipidemia. 7. History of reflux disease. 8. Hypertension. 9. Increased random blood sugar. 10. FULL CODE. DISCHARGE DISPOSITION: The patient will be discharged in stable condition with guarded prognosis. HISTORY OF PRESENT ILLNESS: This 77-year-old gentleman with a past medical history of multiple medical problems admitted with chest pressure, chronic obstructive pulmonary disease exacerbation. Multiple . Cardiology saw the patient. Care was coordinated. Dr. Hilton also saw the patient from nephrology point of care. Creatinine 3.78. On exam, vitals are stable. CARDIOVASCULAR SYSTEM: S1, S2 muffled. RESPIRATORY: A few scattered rhonchi. ABDOMEN: Soft. CENTRAL NERVOUS SYSTEM: No focal deficits. Discharge advice and medications: 1. Diet is cardiac. 2. Activity limited until follow-up. 3. Follow-up with Dr. Edward Bowen in 1 to 2 days. 4. Follow-up with cardiology and nephrology as recommended. 5. Medications are albuterol 2 puffs q.i.d. 6. Aspirin 81 mg p.o. daily. 7. Lipitor 20 mg q.h.s. 8. Symbicort 160/4.5, 2 puffs b.i.d. 9. Rocaltrol 0.25 mcg p.o. Wednesday. 10. Fish oil two capsules a day. 11. Lopressor 25 mg p.o. b.i.d. 12. Protonix 40 mg b.i.d. 13. Sodium bicarb 650 mg p.o. b.i.d. 14. Norvasc 10 mg p.o. daily. 15. Hydralazine 50 mg p.o. t.i.d. Follow with cardiology as recommended. Once again, the patient will be discharged in stable condition with guarded prognosis. MTDD
[2016-11-23] MEDS ORDERED: CALCITRIOL 0.25 MCG CAP PO SCH (09:00)
== END 2016-11-21 15:40 | disposition home health service (06) | DRG 191 ==
LOC: EC 16:18 → 6SEL 20:56
PROVIDERS: ADMIT Family Medicine; ATTEND Family Medicine
DX: J44.1 Chronic obstructive pulmonary disease with (acute) exacerbation (principal); I25.110 Atherosclerotic heart disease of native coronary artery with unstable angina pectoris; N18.4 Chronic kidney disease, stage 4 (severe); N17.9 Acute kidney failure, unspecified; I50.9 Heart failure, unspecified; I45.10 Unspecified right bundle-branch block; E83.9 Disorder of mineral metabolism, unspecified; I12.9 Hypertensive chronic kidney disease with stage 1 through stage 4 chronic kidney disease, or unspecified chronic kidney disease; F17.200 Nicotine dependence, unspecified, uncomplicated; D50.9 Iron deficiency anemia, unspecified; E78.5 Hyperlipidemia, unspecified; R07.89 Other chest pain; F41.9 Anxiety disorder, unspecified; I25.2 Old myocardial infarction; I49.3 Ventricular premature depolarization; I73.9 Peripheral vascular disease, unspecified; J98.01 Acute bronchospasm; K21.9 Gastro-esophageal reflux disease without esophagitis; R74.8 Abnormal levels of other serum enzymes; K57.90 Diverticulosis of intestine, part unspecified, without perforation or abscess without bleeding; Z79.899 Other long term (current) drug therapy; Z95.5 Presence of coronary angioplasty implant and graft; Z82.49 Family history of ischemic heart disease and other diseases of the circulatory system
CPT/HCPCS: 36415; 71020; 71250; 80048; 80053; 81001; 82550; 82553; 83036; 83735; 83880; 84100; 84484; 85025; 85610; 85730; 93005; 93306; 94640; 94760; 96361; 96365; 96375; 96376; 99285

== ENCOUNTER 2017-03-22 08:49 | Emergency (ER) | payer MEDICARE ==
[2017-03-22] MEDS ORDERED: HYDROcodone/APAP 5-325MG 1 EACH TAB PO STA ×2 (09:56→14:48)
[2017-03-22] MEDS ORDERED: hydrALAZINE HCL 25 MG TAB PO STA (09:56)
--- NOTE | 2017-03-22 10:00 | ED ---
Fall HPI - General Chief Complaint: Fall Stated Complaint: Fall/ribs and left elbow Time Seen by Provider: 03/22/17 09:17 Source: patient, family, old records reviewed Mode of arrival: wheelchair - History of Present Illness Initial Comments: Patient is a 76-year-old male presents to the emergency room for evaluation fall injury. Patient states he was walking down a step, tripped and went to catch himself with his left arm. Patient states since the incident he's been having left sided rib, left elbow and left wrist pain. Patient denies head trauma. Patient denies loss of consciousness. Patient denies neck pain. Patient states he is having 10 out of 10 elbow pain and wrist pain. Patient states he is having 8 out of 10 left rib pain. Patient denies worsening pain while taking a deep breath. Patient denies shortness of breath. Patient denies abdominal pain. Patient states pain is worse in his elbow with flexion. Patient denies any other injuries during incident. Patient denies taking any pain medications for symptoms. Patient denies taking any of his medications this morning. - Related Data Home Medications Medication Instructions Recorded Confirmed Fish Oil/Dha/Epa [Fish Oil 1,200 2 cap PO DAILY 11/18/16 03/22/17 mg Fish Oil] amLODIPine [Norvasc] 10 mg PO DAILY 11/18/16 03/22/17 hydrALAZINE HCL [Apresoline] 25 mg PO TID 03/22/17 03/22/17 Previous Rx's Medication Instructions Recorded Albuterol Inhaler [Ventolin Hfa 2 puff INHALATION Q6HR #1 inhaler 11/21/16 Inhaler] Aspirin 81 mg PO DAILY #30 chew 11/21/16 Budesonide-Formot 160-4.5 Mcg 2 puff INHALATION RT-BID #1 puff 11/21/16 [Symbicort 160-4.5 Mcg Inhaler] HYDROcodone/APAP 5-325MG [[place] 1 tab PO Q6HR PRN #12 tab 03/22/17 5-325] Allergies Allergy/AdvReac Type Severity Reaction Status Date / Time No Known Allergies Allergy Verified 03/22/17 10:00 Review of Systems ROS Statement: Those systems with pertinent positive or pertinent negative responses have been documented in the HPI. ROS Other: All systems not noted in ROS Statement are negative. Past Medical History Past Medical History: Coronary Artery Disease (CAD), Heart Failure, GI Bleed, Hyperlipidemia, Hypertension, Myocardial Infarction (SD), Vascular Disorder Additional Past Medical History / Comment(s): OTHER HX: [place] 2013, GI bleed, BLOOD IN STOOL, anemia, iron deficiency anemia, diverticulosis, colon polyp ( removed), PVD-pt needs bilateral leg bypass surgery but cannot have surgery unless he quits. smoking, neck fx as a young person with seizures following last one years ago. Last Myocardial Infarction Date:: 2013 History of Any Multi-Drug Resistant Organisms: None Reported Past Surgical History: Heart Catheterization With Stent Additional Past Surgical History / Comment(s): ccath with stents in 2007 and 2013, 11/19/14 EGD with bx and Colonoscopy with polypectomy, bilateral cataract removal with lens implants. Past Anesthesia/Blood Transfusion Reactions: No Reported Reaction Date of Last Stent Placement:: 2013 Past Psychological History: Anxiety Smoking Status: Current every day smoker Past Alcohol Use History: None Reported Past Drug Use History: None Reported - Past Family History Father Family Medical History: Myocardial Infarction (SD) Additional Family Medical History / Comment(s): Father at age 59 of a SD Mother Family Medical History: CVA/TIA Additional Family Medical History / Comment(s): Mother of a brain hemorrage. General Exam - General Exam Comments Initial Comments: Sitting in exam room, no acute distress. Limitations: no limitations General appearance: alert, in no apparent distress Head exam: Present: atraumatic, normocephalic, normal inspection Eye exam: Present: normal appearance, PERRL, EOMI Pupils: Present: normal accommodation ENT exam: Present: normal exam Neck exam: Present: normal inspection, full ROM. Absent: tenderness, lymphadenopathy Respiratory exam: Present: normal lung sounds bilaterally, chest wall tenderness (Tenderness on palpating over her anterior lateral left chest wall). Absent: respiratory distress Cardiovascular Exam: Present: regular rate, normal rhythm, normal heart sounds GI/Abdominal exam: Present: soft, normal bowel sounds. Absent: distended, tenderness, guarding, rebound, rigid Left Elbow exam: Present: tenderness, swelling. Absent: normal inspection, full ROM Forearm Wrist exam: Present: tenderness Hand Wrist exam: Present: full ROM, tenderness Vascular: Present: normal capillary refill (Capillary refill less than 2 seconds ), radial pulse (2+), ulnar pulse (2+) Back exam: Present: normal inspection Neurological exam: Present: alert, oriented X3, CN II-XII intact, normal gait Psychiatric exam: Present: normal affect, normal mood Skin exam: Present: warm, dry, intact, normal color. Absent: rash Course Vital Signs 03/22/17 03/22/17 03/22/17 09:08 11:37 12:38 Temperature 98.3 F Pulse Rate 82 77 Respiratory 20 17 Rate Blood Pressure 242/104 196/87 185/85 O2 Sat by Pulse 96 95 Oximetry 03/22/17 03/22/17 03/22/17 13:47 14:34 14:47 Temperature Pulse Rate 71 79 70 Respiratory 18 16 Rate Blood Pressure 170/81 189/86 175/86 O2 Sat by Pulse 93 L 93 L Oximetry 03/22/17 15:39 Temperature 98.0 F Pulse Rate 77 Respiratory 16 Rate Blood Pressure 181/84 O2 Sat by Pulse 95 Oximetry Medical Decision Making - Medical Decision Making Patient is a 76-year-old male presents emergency room for evaluation of fall injury. Patient complaining of left-sided rib pain, left elbow pain and left wrist pain. Chest x-ray and wrist x-ray show no acute findings. Left elbow x- ray: No joint effusion suggesting internal derangement. There may be an occult nondisplaced distal humeral condylar/supracondylar fracture. CT left elbow ordered for further evaluation. Suspect acute avulsion type fracture anterior lip of the olecranon. No definitive surgical fractures present. Case discussed with Dr. Monroy who also evaluated patient. Discussed case with TAURUS Alexander from [facility], who discussed case and reviewed imaging with Dr. Dong. Dr. Dong suggested that patient be placed in a arm sling and follow-up with him tomorrow morning. Results and plan discussed with patient and family. Return parameters discussed. - Radiology Data Radiology results: report reviewed, image reviewed Disposition Clinical Impression: Fracture of left olecranon process, Fall, Contusion of rib on left side Disposition: HOME SELF-CARE Condition: Good Instructions: Elbow Fracture in Adults (ED), Fall Prevention for Older Adults ( ED), Rib Contusion (ED) Additional Instructions: Ice on and off for 10-15 minutes for the next 24-48 hours. Take Tylenol or Motrin as needed for pain. Take [place] as needed for severe pain. Please follow- up with head orthopedic team physician tomorrow morning. If new symptoms develop or symptoms worsen, please return to the ER. Prescriptions: HYDROcodone/APAP 5-325MG [[place] 5-325] 1 tab PO Q6HR PRN #12 tab PRN Reason: Pain Referrals: Edward Bowen MD [Primary Care Provider] - 1-2 days Jaime Dong MD [STAFF PHYSICIAN] - 1-2 days Time of Disposition: 15:21
--- NOTE | 2017-03-22 11:35 | XR ---
EXAMINATION TYPE: XR ribs LT w pa chest xray DATE OF EXAM: 03/22/2017 CLINICAL HISTORY: Fall injury last night with chest and left-sided rib pain. TECHNIQUE: Single frontal view of the chest is obtained. A frontal and oblique images the left-sided ribs are acquired. COMPARISON: Chest x-ray November 18, [address] chest November 19, 2016. FINDINGS: Mild underlying emphysematous change is present seen better on CT. There is slightly more p rominent left basilar atelectasis and/or scarring. Right lung remains clear. No large pleural effusio n or pneumothorax is seen bilaterally. The cardiac silhouette size is within normal limits. The os seous structures are somewhat demineralized. Dedicated images left-sided ribs show no acute displaced fractures. Overlying soft tissue is unremark able. IMPRESSION: 1. Mild emphysematous change without acute pulmonary process. 2. No acute displaced left-sided rib fractures are evident.
--- NOTE | 2017-03-22 11:42 | XR ---
EXAMINATION TYPE: 3 views left elbow. 2 views left forearm. 4 views left wrist. DATE OF EXAM: 03/22/2017 COMPARISON: NONE HISTORY: 76-year-old male with a pain after fall last night. FINDINGS: Left elbow: There is some irregularity about the lateral margin of the lateral condyle and lateral epicondyle. On the lateral view, there may be subtle lucency projecting along the posterior aspect of the distal hu merus below the level of the olecranon fossa. Otherwise, no displaced fracture is seen. The radiocapi tellar and anterior humeral lines are satisfactory. Underlying elbow joint effusion is present sugges ting internal derangement. Left forearm: No acute fracture of the more mid to distal radius or ulna is seen. Vascular calcifications suggest u nderlying diabetes and/or chronic kidney disease. There is osteopenia. Left wrist: Negative ulnar variance. The radiocarpal and distal radioulnar joints as well as the midcarpal compar tment appear intact. No acute fracture, subluxation, or dislocation is identified. There is borderlin e widening at the scapholunate interval on the navicular view. IMPRESSION: 1. Left elbow: Elbow joint effusion suggesting internal derangement. There may be an occult nondispla christina distal humeral condylar/supracondylar fracture. 2. Left forearm: No acute osseous abnormality seen. 3. Left wrist: Borderline widening at the scapholunate interval on the navicular view. Findings sugge st age indeterminate sprain of the scapholunate ligament. Clinically correlate. Otherwise, no acute o sseous abnormality seen.
[2017-03-22] MEDS ORDERED: MORPHINE SULFATE 10 MG/ML SYRINGE IM STA (12:00)
--- NOTE | 2017-03-22 13:01 | CT ---
EXAMINATION TYPE: CT elbow LT wo con DATE OF EXAM: 03/22/2017 COMPARISON: Left elbow x-ray from earlier today. HISTORY: left elbow pain from fall CT DLP: 332.5 mGycm Automated exposure control for dose reduction was used. FINDINGS: Exam is suboptimal as is degraded by artifact related to motion as well as artifact related to positi oning, patient is unable to elevate arms above abdomen thus scanning plane includes abdomen and other upper extremity. There is also flexion and rotation present. There is moderate elbow joint effusion or hemarthrosis confirmed. There is suspected nondisplaced monty ear intra-articular fracture through anterior lip of the olecranon seen best on sagittal image 23. Ra dial head is somewhat irregular on axial image 43 but no definitive fracture is clearly identified on coronal or sagittal images. Visualized adjacent ribs are intact. There is linear scarring in the left lung base with some adjacen t focal groundglass opacity present near axial image 37. IMPRESSION: SUBOPTIMAL STUDY, SUSPECT ACUTE AVULSION TYPE FRACTURE ANTERIOR LIP OF THE OLECRANON. NO DEFINITIVE S URGICAL FRACTURE IS PRESENT. CONSIDER NONEMERGENT MRI FOLLOW-UP.
[2017-03-22 14:36] VITALS: RESP 16
[2017-03-22 15:40] VITALS: BP 181/84; PULSE 77; TEMP 98
== END 2017-03-22 15:40 | disposition home or self-care (01) ==
LOC: EC 08:49
DX: S52.025A Nondisplaced fracture of olecranon process without intraarticular extension of left ulna, initial encounter for closed fracture (principal); S20.212A Contusion of left front wall of thorax, initial encounter; M25.532 Pain in left wrist; I50.9 Heart failure, unspecified; I10 Essential (primary) hypertension; I25.2 Old myocardial infarction; I25.10 Atherosclerotic heart disease of native coronary artery without angina pectoris; F17.200 Nicotine dependence, unspecified, uncomplicated; Z79.899 Other long term (current) drug therapy; Z95.5 Presence of coronary angioplasty implant and graft; W10.9XXA Fall (on) (from) unspecified stairs and steps, initial encounter; Y93.01 Activity, walking, marching and hiking
CPT/HCPCS: 71101; 73080; 73090; 73110; 73200; 99284; 96372; J2270

== ENCOUNTER 2017-05-06 09:33 | Inpatient (IN) | payer MEDICARE ==
[2017-05-06 09:44] VITALS: RESP 18
[2017-05-06] MEDS ORDERED: SODIUM CHLORIDE 0.9% 500 ML IV STA (09:50)
[2017-05-06] MEDS ORDERED: hydrALAZINE HCL 20 MG/ML 1 ML VIAL IVP STA ×2 (09:51→12:13)
[2017-05-06 10:11] LABS: Basophils % (A) 0 %; CH 29.6; CHCM 33.5; Eosinophils # (A) 0.3 k/uL (0-0.7); Eosinophils % (A) 3 %; HDW 2.73; HGB 13.9 gm/dL (13.0-17.5); Luc # (Auto) 0.16; Luc % (Auto) 2; Lymphocytes # (A) 1.6 k/uL (1.0-4.8); Lymphocytes % (A) 17 %; MCH 29.4 pg (25.0-35.0); MCHC 33.1 g/dL (31.0-37.0); MCV 88.9 fL (80.0-100.0); Mean Platelet Volume 8.9; Monocytes # (A) 0.5 k/uL (0-1.0); Monocytes % (A) 6 %; Neutrophils # (A) 6.8 k/uL (1.3-7.7); Neutrophils % (A) 72 %; RBC 4.72 m/uL (4.30-5.90); RDW 14.6 % (11.5-15.5); WBC 9.4 k/uL (3.8-10.6); WBC (Perox) 9.57
[2017-05-06 10:22] LABS: Calcium 8.5 mg/dL (8.4-10.2); Potassium 4.7 mmol/L (3.5-5.1); Total Bilirubin 0.4 mg/dL (0.2-1.3); Total Protein 6.8 g/dL (6.3-8.2)
--- NOTE | 2017-05-06 10:38 | XR ---
EXAMINATION TYPE: XR chest 2V DATE OF EXAM: 05/06/2017 COMPARISON: NONE TECHNIQUE: PA and lateral views submitted. HISTORY: Dizziness and syncope FINDINGS: The lungs are clear and there is no pneumothorax, pleural effusion, or focal pneumonia. Hypertrophi c and degenerative change of the spine. Hyperinflation suggests COPD and there is borderline cardiome marisabel. Biapical pleural thickening. IMPRESSION: 1. No acute process.
[2017-05-06] MEDS ORDERED: amLODIPine 10 MG TAB PO STA (10:39)
[2017-05-06 10:44] LABS: Prothrombin Time 10.2 sec (9.0-12.0)
[2017-05-06] MEDS ORDERED: NALOXONE 0.4 MG/ML 1 ML VIAL IV PRN (13:00)
--- NOTE | 2017-05-06 13:07 | ED ---
General Adult HPI - General Chief complaint: Dizziness Stated complaint: Syncope Time Seen by Provider: 05/06/17 09:38 Source: patient, family, EMS, RN notes reviewed Mode of arrival: EMS - History of Present Illness Initial comments: 76-year-old male presents with syncopal episode. Patient was standing at the [facility] office. He fell slowly, no trauma according to EMS, per patient denies any pain. No headache. No chest pain or shortness of breath. Patient was unconscious only momentarily. Denies any vomiting states he's had some nausea. Did not take his blood pressure medications morning. He did not eat breakfast. Denies any palpitations. Past medical history of hypertension and CAD. - Related Data Home Medications Medication Instructions Recorded Confirmed Fish Oil/Dha/Epa [Fish Oil 1,200 2 cap PO DAILY 11/18/16 05/06/17 mg Fish Oil] amLODIPine [Norvasc] 10 mg PO DAILY 11/18/16 05/06/17 hydrALAZINE HCL [Apresoline] 25 mg PO TID 03/22/17 05/06/17 Previous Rx's Medication Instructions Recorded Aspirin 81 mg PO DAILY #30 chew 11/21/16 Allergies Allergy/AdvReac Type Severity Reaction Status Date / Time No Known Allergies Allergy Verified 05/06/17 10:50 Review of Systems ROS Statement: Those systems with pertinent positive or pertinent negative responses have been documented in the HPI. ROS Other: All systems not noted in ROS Statement are negative. Past Medical History Past Medical History: Coronary Artery Disease (CAD), Heart Failure, GI Bleed, Hyperlipidemia, Hypertension, Myocardial Infarction ([place]), Vascular Disorder Additional Past Medical History / Comment(s): OTHER HX: [place] 2013, GI bleed, BLOOD IN STOOL, anemia, iron deficiency anemia, diverticulosis, colon polyp ( removed), PVD-pt needs bilateral leg bypass surgery but cannot have surgery unless he quits. smoking, neck fx as a young person with seizures following last one years ago. Last Myocardial Infarction Date:: 2013 History of Any Multi-Drug Resistant Organisms: None Reported Past Surgical History: Heart Catheterization With Stent Additional Past Surgical History / Comment(s): ccath with stents in 2007 and 2013, 11/19/14 EGD with bx and Colonoscopy with polypectomy, bilateral cataract removal with lens implants. Past Anesthesia/Blood Transfusion Reactions: No Reported Reaction Date of Last Stent Placement:: 2013 Past Psychological History: Anxiety Smoking Status: Current every day smoker Past Alcohol Use History: None Reported Past Drug Use History: None Reported - Past Family History Father Family Medical History: Myocardial Infarction ([place]) Additional Family Medical History / Comment(s): Father at age 59 of a [place] Mother Family Medical History: CVA/TIA Additional Family Medical History / Comment(s): Mother of a brain hemorrage. General Exam General appearance: alert, in no apparent distress Head exam: Present: atraumatic, normocephalic Eye exam: Present: normal appearance, PERRL ENT exam: Present: mucous membranes dry Neck exam: Present: normal inspection, full ROM. Absent: tenderness, meningismus Respiratory exam: Present: normal lung sounds bilaterally. Absent: respiratory distress Cardiovascular Exam: Present: regular rate, normal rhythm GI/Abdominal exam: Present: soft. Absent: distended, tenderness Rectal exam: Present: deferred Extremities exam: Present: normal inspection, full ROM, normal capillary refill. Absent: pedal edema Neurological exam: Present: alert, oriented X3, CN II-XII intact Psychiatric exam: Present: normal affect, normal mood Skin exam: Present: warm, dry, intact. Absent: cyanosis, diaphoretic Course Vital Signs 05/06/17 05/06/17 05/06/17 09:39 10:10 10:37 Temperature 97.3 F L Pulse Rate 76 Respiratory 18 Rate Blood Pressure 222/94 180/84 222/89 O2 Sat by Pulse 100 Oximetry 05/06/17 05/06/17 05/06/17 11:04 11:17 11:37 Temperature Pulse Rate 76 Respiratory 18 Rate Blood Pressure 192/87 196/106 204/88 O2 Sat by Pulse 95 Oximetry 05/06/17 12:20 Temperature Pulse Rate 82 Respiratory 18 Rate Blood Pressure 194/95 O2 Sat by Pulse 97 Oximetry - Reevaluation(s) Reevaluation #1: 05/06/17 13:05 Patient remains a symptomatic, denying the need for CAT scan. EKG Findings - EKG Comments: EKG Findings:: EKG shows normal sinus rhythm with a right bundle branch block, this is compared to previous EKG and is unchanged. Ventricular is 74, PA interval 112, QRS duration 148, QTC 497, there is no signs of ST segment elevation Medical Decision Making - Medical Decision Making 76 yo male presenting with syncopal episode. Patient is found to have significantly elevated blood pressure in the emergency department. This is treated with hydralazine IV. Patient denies symptoms of headache, denies chest pain or shortness of breath, denies abdominal pain. Laboratory studies do reveal a stable hemoglobin at 13.9, white blood cell count is 19.4 with no signs of infection, creatinine is 3.72 which is the patient's baseline CK-MB. Patient is seen and evaluated by his primary care physician in the emergency department. He will be admitted for syncope and hypertensive urgency. - Lab Data Result diagrams: 05/06/17 09:46 05/06/17 09:46 Lab Results 05/06/17 05/06/17 05/06/17 Range/Units 09:46 09:46 09:46 WBC 9.4 (3.8-10.6) k/uL RBC 4.72 (4.30-5.90) m/uL Hgb 13.9 (13.0-17.5) gm/dL Hct 42.0 (39.0-53.0) % MCV 88.9 (80.0-100.0) fL MCH 29.4 (25.0-35.0) pg MCHC 33.1 (31.0-37.0) g/dL RDW 14.6 (11.5-15.5) % Plt Count 230 (150-450) k/uL Neutrophils % 72 % Lymphocytes % 17 % Monocytes % 6 % Eosinophils % 3 % Basophils % 0 % Neutrophils # 6.8 (1.3-7.7) k/uL Lymphocytes # 1.6 (1.0-4.8) k/uL Monocytes # 0.5 (0-1.0) k/uL Eosinophils # 0.3 (0-0.7) k/uL Basophils # 0.0 (0-0.2) k/uL PT 10.2 (9.0-12.0) sec INR 1.0 (<1.2) Sodium 144 (137-145) mmol/L Potassium 4.7 (3.5-5.1) mmol/L Chloride 112 H (98-107) mmol/L Carbon Dioxide 20 L (22-30) mmol/L Anion Gap 12 mmol/L BUN 31 H (9-20) mg/dL Creatinine 3.72 H (0.66-1.25) mg/dL Est GFR (MDRD) Af Amer 19 (>60 ml/min/1.73 sqM) Est GFR (MDRD) Non-Af 16 (>60 ml/min/1.73 sqM) Glucose 106 H (74-99) mg/dL Plasma Lactic Acid Gage (0.7-2.0) mmol/L Calcium 8.5 (8.4-10.2) mg/dL Total Bilirubin 0.4 (0.2-1.3) mg/dL AST 13 L (17-59) U/L ALT 24 (21-72) U/L Alkaline Phosphatase 83 (38-126) U/L Troponin I (0.000-0.034) ng/mL Total Protein 6.8 (6.3-8.2) g/dL Albumin 4.2 (3.5-5.0) g/dL 05/06/17 05/06/17 Range/Units 09:46 10:20 WBC (3.8-10.6) k/uL RBC (4.30-5.90) m/uL Hgb (13.0-17.5) gm/dL Hct (39.0-53.0) % MCV (80.0-100.0) fL MCH (25.0-35.0) pg MCHC (31.0-37.0) g/dL RDW (11.5-15.5) % Plt Count (150-450) k/uL Neutrophils % % Lymphocytes % % Monocytes % % Eosinophils % % Basophils % % Neutrophils # (1.3-7.7) k/uL Lymphocytes # (1.0-4.8) k/uL Monocytes # (0-1.0) k/uL Eosinophils # (0-0.7) k/uL Basophils # (0-0.2) k/uL PT (9.0-12.0) sec INR (<1.2) Sodium (137-145) mmol/L Potassium (3.5-5.1) mmol/L Chloride (98-107) mmol/L Carbon Dioxide (22-30) mmol/L Anion Gap mmol/L BUN (9-20) mg/dL Creatinine (0.66-1.25) mg/dL Est GFR (MDRD) Af Amer (>60 ml/min/1.73 sqM) Est GFR (MDRD) Non-Af (>60 ml/min/1.73 sqM) Glucose (74-99) mg/dL Plasma Lactic Acid Gage 1.1 (0.7-2.0) mmol/L Calcium (8.4-10.2) mg/dL Total Bilirubin (0.2-1.3) mg/dL AST (17-59) U/L ALT (21-72) U/L Alkaline Phosphatase (38-126) U/L Troponin I 0.025 (0.000-0.034) ng/mL Total Protein (6.3-8.2) g/dL Albumin (3.5-5.0) g/dL Critical Care Time Critical Care Time: Yes Total Critical Care Time: 35 Disposition Clinical Impression: Syncope, Hypertensive urgency Disposition: [facility] Condition: Stable Referrals: Edward Bowen MD [Primary Care Provider] - 1-2 days Decision to Admit Reason: Admit from EC Decision Date: 05/06/17 Decision Time: 12:05
--- NOTE | 2017-05-06 13:16 | CT ---
EXAMINATION TYPE: CT brain wo con DATE OF EXAM: 05/06/2017 COMPARISON: NONE HISTORY: Patient complains of weakness. CT DLP: 1121 mGycm. Automated Exposure Control for Dose Reduction was Utilized. TECHNIQUE: CT scan of the head is performed without contrast. FINDINGS: There is no acute intracranial hemorrhage, mass effect, or midline shift identified. The globes are intact and the visualized sinuses are clear. Bilateral old lacunar injuries are seen of th e periventricular white matter just below the head of the caudate nucleus involving the inferior ante rior limb of the internal capsule. On the right this extends into the right lentiform nucleus. Additi onal patchy areas of hypoattenuation are seen within the [place] radiata. Symmetric prominence of the peripheral sulci and ventricular system are compatible with age-related volume loss. Atherosclerosis is seen of the intracranial vasculature. IMPRESSION: 1. No acute intracranial hemorrhage, mass effect, or midline shift is seen. 2. Bilateral old lacunar injuries involving the right basal ganglia and anterior limbs of the interna l capsules. 3. Age-related volume loss and nonspecific white matter changes, likely on the basis of chronic micro angiopathy.
[2017-05-06] MEDS ORDERED: LABETALOL 5 MG/ML VIAL MDV IVP STA (13:24)
[2017-05-06 13:37] LABS: Appearance,Urine Clear (Clear); Bilirubin,Urine Negative (Negative); Glucose,Urine (UA) Negative (Negative); Ketones,Urine Negative (Negative); Leukocyte Esterase,Urine Small (Negative); Mucus,Urine Rare /hpf; Nitrite,Urine Negative (Negative); PH, Urine 6.5 (5.0-8.0); Particle Count 1195; Protein,Urine 2+ (Negative); RBC,Urine 1 /hpf (0-5); Specific Gravity,Urine 1.007 (1.001-1.035); Squamous Epithelial Cell,Urine <1 /hpf (0-4); UA Billing (MACRO vs. MICRO) MICRO; Urobilinogen,Urine <2.0 mg/dL (<2.0); WBC,Urine 8 /hpf (0-5)
--- NOTE | 2017-05-06 18:41 | P.HPIM ---
History of Present Illness 76-year-old male was admitted through the emergency room after incidents at [facility] where patient had a syncopal episode patient has a past medical history of coronary disease heart failure GI bleed hyperlipidemia myocardial infarction hypertension and vascular disease patient is also in acute renal failure Review of Systems Neurological: Reports syncope Past Medical History Past Medical History: Coronary Artery Disease (CAD), Chest Pain / Angina, Heart Failure, GI Bleed, Hyperlipidemia, Hypertension, Myocardial Infarction ([place]), Pneumonia, Renal Disease, Vascular Disorder Additional Past Medical History / Comment(s): [place] 2013, lower GI bleed, anemia, iron deficiency anemia, chronic kidney dx stage IV, diverticulosis, colon polyp (removed), PVD-pt needs bilateral leg bypass surgery but cannot have surgery unless he quits. smoking, neck fx as a young person with seizures following last one years ago. Last Myocardial Infarction Date:: 2013 History of Any Multi-Drug Resistant Organisms: None Reported Past Surgical History: Heart Catheterization With Stent Additional Past Surgical History / Comment(s): ccath with stents in 2007, EGD with bx and Colonoscopy with polypectomy, bilateral cataract removal with lens implants. Past Anesthesia/Blood Transfusion Reactions: No Reported Reaction Date of Last Stent Placement:: 2007 Smoking Status: Current every day smoker - Past Family History Father Family Medical History: Myocardial Infarction ([place]) Additional Family Medical History / Comment(s): Father at age 59 of a [place] Mother Family Medical History: CVA/TIA Additional Family Medical History / Comment(s): Mother of a brain hemorrage. Medications and Allergies Home Medications Medication Instructions Recorded Confirmed Type Fish Oil/Dha/Epa [Fish Oil 1,200 2 cap PO DAILY 11/18/16 05/06/17 History mg Fish Oil] amLODIPine [Norvasc] 10 mg PO DAILY 11/18/16 05/06/17 History hydrALAZINE HCL [Apresoline] 25 mg PO TID 03/22/17 05/06/17 History Allergies Allergy/AdvReac Type Severity Reaction Status Date / Time No Known Allergies Allergy Verified 05/06/17 10:50 Physical Exam Vitals: Vital Signs Temp Pulse Resp BP Pulse Ox 05/06/17 13:31 98.3 F 80 18 186/81 95 05/06/17 13:00 91 18 201/111 96 05/06/17 12:20 82 18 194/95 97 05/06/17 11:37 76 18 204/88 95 05/06/17 11:17 196/106 05/06/17 11:04 192/87 05/06/17 10:37 222/89 05/06/17 10:10 180/84 05/06/17 09:39 97.3 F L 76 18 222/94 100 Intake and Output 05/06/17 05/06/17 05/06/17 06:59 14:59 22:59 Other: # Voids 1 Weight 74.843 kg Patient Weight 05/07/17 06:59 Weight 74.843 kg - Constitutional General appearance: mild distress - EENT Eyes: PERRLA Ears: bilateral: normal - Respiratory Respiratory: bilateral: CTA - Cardiovascular Rhythm: regular - Gastrointestinal General gastrointestinal: soft - Integumentary Integumentary: normal - Neurologic Neurologic: CNII-XII intact - Musculoskeletal Musculoskeletal: generalized weakness - Psychiatric Psychiatric: A&O x's 3, appropriate affect, intact judgment & insight Results CBC & Chem 7: 05/06/17 09:46 05/06/17 09:46 Labs: Abnormal Lab Results - Last 24 Hours (Table) 05/06/17 05/06/17 Range/Units 09:46 13:00 Chloride 112 H (98-107) mmol/L Carbon Dioxide 20 L (22-30) mmol/L BUN 31 H (9-20) mg/dL Creatinine 3.72 H (0.66-1.25) mg/dL Glucose 106 H (74-99) mg/dL AST 13 L (17-59) U/L Urine Protein 2+ H (Negative) Ur Leukocyte Esterase Small H (Negative) Urine WBC 8 H (0-5) /hpf Urine Mucus Rare H (None) /hpf Chest x-ray: report reviewed CT Scan - head: report reviewed Thrombosis Risk Factor Assmnt - Choose All That Apply Any of the Below Risk Factors Present?: Yes Each Factor Represents 1 point: Abnormal pulmonary function (COPD) Other Risk Factors: Yes Each Risk Factor Represents 3 Points: Age 75 years or older Other congenital or acquired thrombophilia - If yes, enter type in comment: No Thrombosis Risk Factor Assessment Total Risk Factor Score: 4 Thrombosis Risk Factor Assessment Level: Moderate Risk Assessment and Plan Plan: Assessment Syncope Hypertensive urgency Chronic renal failure. GFR 16 Coronary disease history of [place] Hyperlipidemia Vascular disease Plan Nephrology consultation Neurology consultation
[2017-05-06] MEDS ORDERED: hydrALAZINE HCL 25 MG TAB PO SCH (22:00)
[2017-05-07 08:48] VITALS: TEMP 97.4
--- NOTE | 2017-05-07 08:54 | P.NPCON ---
History of Present Illness - Reason for Consult chronic renal failure - History of Present Illness Reason for consultation: Chronic kidney disease History of present illness: Patient is a 76-year-old male seen in renal consultation for chronic kidney disease stage. 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 His baseline creatinine was in the range of 2.8-3 in 2016 and has been closer 3.7 in 2017. His creatinine on admission yesterday was 3.72. Patient has refused renal replacement therapy in the past. 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 Patient states he gradually felt dizzy and subsequently fell. He denies hitting his head. His blood pressure was greater than 200 systolic on admission. He does have a long-standing history of hypertension and states he did not take his medications yesterday. His prior ultrasound from 2014 revealed an atrophic left kidney. He currently denies any chest pain or shortness of breath. No vomiting or diarrhea. Admits to good urine output. No hematuria or dysuria. Denies use of NSAIDs. No other complaints at this time. Vital signs are stable. General: The patient appeared well nourished and normally developed. HEENT: Head exam is unremarkable. Neck is without jugular venous distension. LUNGS: Lungs are clear to auscultation and percussion. Breath sounds decreased. HEART: Rate and Rhythm are regular. First and second heart sounds normal. No murmurs, rubs or gallops. ABDOMEN: Abdominal exam reveals normal bowel sounds. Non-tender and non- distended. No evidence of peritonitis. EXTREMITITES: No clubbing, cyanosis, or edema. Past Medical History Past Medical History: Coronary Artery Disease (CAD), Chest Pain / Angina, Heart Failure, GI Bleed, Hyperlipidemia, Hypertension, Myocardial Infarction ([place]), Pneumonia, Renal Disease, Vascular Disorder Additional Past Medical History / Comment(s): [place] 2014, lower GI bleed, anemia, iron deficiency anemia, chronic kidney dx stage IV, diverticulosis, colon polyp (removed), PVD-pt needs bilateral leg bypass surgery but cannot have surgery unless he quits. smoking, neck fx as a young person with seizures following last one years ago. Last Myocardial Infarction Date:: 2013 History of Any Multi-Drug Resistant Organisms: None Reported Past Surgical History: Heart Catheterization With Stent Additional Past Surgical History / Comment(s): ccath with stents in 2007, EGD with bx and Colonoscopy with polypectomy, bilateral cataract removal with lens implants. Past Anesthesia/Blood Transfusion Reactions: No Reported Reaction Date of Last Stent Placement:: 2007 Smoking Status: Current every day smoker - Past Family History Father Family Medical History: Myocardial Infarction ([place]) Additional Family Medical History / Comment(s): Father at age 59 of a [place] Mother Family Medical History: CVA/TIA Additional Family Medical History / Comment(s): Mother of a brain hemorrage. Medications and Allergies Home Medications Medication Instructions Recorded Confirmed Type Fish Oil/Dha/Epa [Fish Oil 1,200 2 cap PO DAILY 11/18/16 05/06/17 History mg Fish Oil] amLODIPine [Norvasc] 10 mg PO DAILY 11/18/16 05/06/17 History hydrALAZINE HCL [Apresoline] 25 mg PO TID 03/22/17 05/06/17 History Allergies Allergy/AdvReac Type Severity Reaction Status Date / Time No Known Allergies Allergy Verified 05/06/17 10:50 Physical Exam Vitals: Vital Signs Temp Pulse Pulse Resp BP BP Pulse Ox 05/07/17 08:00 97.4 F L 75 18 183/79 98 05/07/17 04:00 97.6 F 69 18 168/72 96 05/07/17 00:00 97.2 F L 80 17 182/82 94 L 05/06/17 20:00 98.4 F 82 18 173/82 93 L 05/06/17 16:00 98.0 F 82 18 175/77 95 05/06/17 13:31 98.3 F 80 18 186/81 95 05/06/17 13:00 91 18 201/111 96 05/06/17 12:20 82 18 194/95 97 05/06/17 11:37 76 18 204/88 95 05/06/17 11:17 196/106 05/06/17 11:04 192/87 05/06/17 10:37 222/89 05/06/17 10:10 180/84 05/06/17 09:39 97.3 F L 76 18 222/94 100 Intake and Output 05/06/17 05/07/17 05/07/17 22:59 06:59 14:59 Intake Total 236 Output Total 300 1 Balance -300 -1 236 Intake: Oral 236 Output: Urine 300 Stool 1 Other: Voiding Method Toilet Toilet # Voids 1 Weight 73.4 kg Results - Lab Results Most recent lab results Calcium 8.5 mg/dL (8.4-10.2) 05/06/17 09:46 05/06/17 09:46 05/06/17 09:46 Assessment and Plan Plan: Assessment: #1. Chronic kidney disease stage IV likely secondary to nephrosclerosis and ischemic nephropathy. Baseline creatinine of 2.8-3 in 2016 closely to 3.7 in 2017. Creatinine on admission was 3.72. Ultrasound from 2015 revealed 7.5 cm left kidney and a 9.3 cm right kidney. No evidence of hematuria. He does have some proteinuria noted on UA with possible underlying glomerulonephritis. However with GFR near 15, expect significant chronicity and minimal benefit from kidney biopsy and immunosuppressive therapy. #2. Syncopal episode. No acute changes noted on brain CT. Neurology recommendations pending. #3. Hypertensive urgency. Patient did not take medications yesterday. Better controlled now. #4. Metabolic acidosis secondary to chronic kidney disease. Plan: I will increase hydralazine to 50 mg 3 times daily. Continue amlodipine 10 mg daily. Add oral sodium bicarbonate 650 mg twice daily. Continue to monitor renal function and urine output. No urgent need for renal replacement therapy at this time and patient wishes for no renal replacement therapy. Thank you for the consultation. I will continue to follow the patient with you during his hospital stay.
[2017-05-07] MEDS ORDERED: hydrALAZINE HCL 50 MG TAB PO SCH (09:00)
[2017-05-07] MEDS ORDERED: amLODIPine 10 MG TAB PO SCH (09:00)
[2017-05-07] MEDS ORDERED: FISH OIL PO SCH (09:00)
[2017-05-07] MEDS ORDERED: SODIUM BICARBONATE TAB 650 MG TAB PO SCH (09:00)
[2017-05-07] MEDS ORDERED: EPA PO SCH (09:00)
[2017-05-07] MEDS ORDERED: DHA PO SCH (09:00)
[2017-05-07] MEDS ORDERED: ASPIRIN 81 MG CHEW PO SCH (09:00)
[2017-05-07 13:05] VITALS: BP 182/80; PULSE 74
--- NOTE | 2017-05-07 15:02 | P.DS ---
Providers Date of admission: 05/06/17 13:00 Attending physician: Edward Bowen Consults: 05/06/17 18:34 Consult Physician Urgent Consulting Provider: Ifrah Gonzalez Consult Reason/Comments: renal failure Do you want consulting provider notified?: Yes 05/06/17 18:35 Consult Physician Urgent Consulting Provider: Adele Brooks Consult Reason/Comments: syncope Do you want consulting provider notified?: Yes Primary care physician: Edward Bowen Hospital Course: Patient is 76-year-old gentleman was admitted for syncopal event. Patient was monitored overnight without any significant events on the EKG. Patient is doing much better patient was a valid by nephrology for chronic kidney disease for possibility of renal replacement therapy and patient doesn't require any renal replacement therapy at this time. And patient will be discharged today. The only significant thing that really able to see is continued elevation of blood pressure because of which amlodipine dose is being increased. Patient had an echocardiogram earlier this year because of which repeat echo cardiac exam was not obtained. PHYSICAL EXAMINATION: GENERAL: The patient is alert and oriented x3, not in any acute distress. Well developed, well nourished. HEENT: Pupils are round and equally reacting to light. EOMI. No scleral icterus. No conjunctival pallor. Normocephalic, atraumatic. No pharyngeal erythema. No thyromegaly. CARDIOVASCULAR: S1 and S2 present. No murmurs, rubs, or gallops. PULMONARY: Chest is clear to auscultation, no wheezing or crackles. ABDOMEN: Soft, nontender, nondistended, normoactive bowel sounds. No palpable organomegaly. MUSCULOSKELETAL: No joint swelling or deformity. EXTREMITIES: No cyanosis, clubbing, or pedal edema. NEUROLOGICAL: Gross neurological examination did not reveal any focal deficits. SKIN: No rashes. Syncope, probably vasovagal Hypertensive urgency Chronic renal failure. GFR 16 Coronary disease history of [place] Hyperlipidemia Vascular disease Patient Condition at Discharge: Stable Plan - Discharge Summary New Discharge Prescriptions: New hydrALAZINE HCL [Hydralazine HCl] 75 mg PO TID #90 tablet Discontinued hydrALAZINE HCL [Apresoline] 25 mg PO TID No Action amLODIPine [Norvasc] 10 mg PO DAILY Fish Oil/Dha/Epa [Fish Oil 1,200 mg Fish Oil] 2 cap PO DAILY Aspirin 81 mg PO DAILY #30 chew Discharge Medication List Fish Oil/Dha/Epa [Fish Oil 1,200 mg Fish Oil] 2 cap PO DAILY 11/18/16 [History] amLODIPine [Norvasc] 10 mg PO DAILY 11/18/16 [History] Aspirin 81 mg PO DAILY #30 chew 11/21/16 [Rx] hydrALAZINE HCL [Hydralazine HCl] 75 mg PO TID #90 tablet 05/07/17 [Rx] Follow up Appointment(s)/Referral(s): Edward Bowen MD [Primary Care Provider] - 3 Days Santhosh Hilton DO [STAFF PHYSICIAN] - 05/12/17 10:40 am Patient Instructions/Handouts: Syncope (DC), Hypertensive Crisis (DC) Discharge Disposition: HOME SELF-CARE
== END 2017-05-07 13:14 | disposition home or self-care (01) | DRG 305 ==
LOC: EC 09:33 → 6SEL 13:00
PROVIDERS: ADMIT Family Medicine; ATTEND Family Medicine
DX: I16.0 Hypertensive urgency (principal); E87.2 Acidosis; N18.4 Chronic kidney disease, stage 4 (severe); E78.5 Hyperlipidemia, unspecified; I25.2 Old myocardial infarction; I25.10 Atherosclerotic heart disease of native coronary artery without angina pectoris; I45.10 Unspecified right bundle-branch block; N05.9 Unspecified nephritic syndrome with unspecified morphologic changes; I50.9 Heart failure, unspecified; I13.0 Hypertensive heart and chronic kidney disease with heart failure and stage 1 through stage 4 chronic kidney disease, or unspecified chronic kidney disease; I73.9 Peripheral vascular disease, unspecified; K57.90 Diverticulosis of intestine, part unspecified, without perforation or abscess without bleeding; R80.9 Proteinuria, unspecified; R53.1 Weakness; R55 Syncope and collapse; F41.9 Anxiety disorder, unspecified; F17.200 Nicotine dependence, unspecified, uncomplicated; Z86.010 Personal history of colon polyps; Z87.01 Personal history of pneumonia (recurrent); Z87.81 Personal history of (healed) traumatic fracture; Z79.899 Other long term (current) drug therapy; Z82.49 Family history of ischemic heart disease and other diseases of the circulatory system; Z98.42 Cataract extraction status, left eye; Z98.41 Cataract extraction status, right eye; Z96.1 Presence of intraocular lens; Z87.19 Personal history of other diseases of the digestive system; Z86.69 Personal history of other diseases of the nervous system and sense organs; Z82.3 Family history of stroke; Z82.0 Family history of epilepsy and other diseases of the nervous system; Z95.5 Presence of coronary angioplasty implant and graft; Z79.82 Long term (current) use of aspirin; Z86.2 Personal history of diseases of the blood and blood-forming organs and certain disorders involving the immune mechanism
CPT/HCPCS: 36415; 70450; 71020; 80053; 81001; 83605; 84484; 85025; 85610; 93005; 96361; 96374; 96375; 96376; 99291

== ENCOUNTER → 2017-12-08 | Outpatient (CLI) | payer MEDICARE ==
--- NOTE | 2017-12-08 14:08 | US ---
EXAMINATION TYPE: US kidneys/renal and bladder DATE OF EXAM: 12/08/2017 COMPARISON: 12/29/2014 CLINICAL HISTORY: 77-year-old male CKD stage 4 N18.4. CKD Technique: Multiple sonographic images of the kidneys and bladder are obtained. FINDINGS: Right Kidney: 8.3 x 5.0 x 4.5 cm Left Kidney: 9.3 X 4.8 X 4.2 cm Right Kidney: Cortical thinning, multicystic with multiple sub-centimeter cysts scattered throughout, largest lower pole= 0.9 x 0.9 x 0.8 cm. No hydronephrosis. Left Kidney: Cortical thinning, multicystic, largest mid/lateral= 2.1 x 2.3 x 2.3 cm. No hydronephros is. Bladder: wnl Bilateral Jets seen: Only right jet visualized There is no evidence for hydronephrosis at this point in time. No nephrolithiasis is seen. No matt s are identified. The urinary bladder is anechoic. Bilateral ureteral jets are seen. IMPRESSION: Changes of chronic medical renal disease with numerous bilateral small cysts, largest measuring 2.3 c m. These are largely new from 2014. Query acquired cysts if the patient is on dialysis. No hydroneph rosis.
== END | disposition home or self-care (01) ==
LOC: RADUSWWP 12:02
PROVIDERS: ATTEND Internal Medicine Nephrology
DX: N28.1 Cyst of kidney, acquired (principal); N18.4 Chronic kidney disease, stage 4 (severe)
CPT/HCPCS: 76770

== ENCOUNTER 2018-01-12 23:03 | Inpatient (IN) | payer MEDICARE ==
--- NOTE | 2018-01-12 23:25 | ED ---
General Adult HPI - General Chief complaint: Chest Pain Stated complaint: SOB Time Seen by Provider: 01/12/18 23:13 Source: patient Mode of arrival: wheelchair Limitations: no limitations - History of Present Illness Initial comments: Is a 77-year-old male with a history of CKD, CHF, CAD who presents emergency department for chest pressure and shortness of breath. He states that shortness of breath has been gradually worsening throughout the day until now. He states he is also been having intermittent chest pressure since noon. He states that he has not noticed any lower extremity swelling. No recent travel or surgeries. He states he has been coughing however this is nonproductive. No fevers or chills. No recent sick contacts. No history of COPD however the daughter believes that he may actually have it. The patient has not tried any other medications or anything else at home. When his shortness of breath got much worse she decided come emergency department. He denies any other acute complaints. - Related Data Home Medications Medication Instructions Recorded Confirmed Fish Oil/Dha/Epa [Fish Oil 1,200 1 cap PO BID 11/18/16 01/12/18 mg Fish Oil] amLODIPine [Norvasc] 10 mg PO DAILY 11/18/16 01/12/18 Garlic 1 tab PO DAILY 01/12/18 01/12/18 hydrALAZINE HCL [Hydralazine HCl] 50 mg PO TID 01/12/18 01/12/18 Previous Rx's Medication Instructions Recorded Aspirin 81 mg PO DAILY #30 chew 11/21/16 Allergies Allergy/AdvReac Type Severity Reaction Status Date / Time No Known Allergies Allergy Verified 01/12/18 23:27 Review of Systems ROS Statement: Those systems with pertinent positive or pertinent negative responses have been documented in the HPI. ROS Other: All systems not noted in ROS Statement are negative. Past Medical History Past Medical History: Coronary Artery Disease (CAD), Chest Pain / Angina, Heart Failure, GI Bleed, Hyperlipidemia, Hypertension, Myocardial Infarction ([place]), Pneumonia, Renal Disease, Vascular Disorder Additional Past Medical History / Comment(s): [place] 2014, lower GI bleed, anemia, iron deficiency anemia, chronic kidney dx stage IV, diverticulosis, colon polyp (removed), PVD-pt needs bilateral leg bypass surgery but cannot have surgery unless he quits. smoking, neck fx as a young person with seizures following last one years ago. Last Myocardial Infarction Date:: 2013 History of Any Multi-Drug Resistant Organisms: None Reported Past Surgical History: Heart Catheterization With Stent Additional Past Surgical History / Comment(s): ccath with stents in 2007, EGD with bx and Colonoscopy with polypectomy, bilateral cataract removal with lens implants. Past Anesthesia/Blood Transfusion Reactions: No Reported Reaction Date of Last Stent Placement:: 2007 Past Psychological History: No Psychological Hx Reported Smoking Status: Current every day smoker Past Alcohol Use History: None Reported Past Drug Use History: None Reported - Past Family History Father Family Medical History: Myocardial Infarction ([place]) Additional Family Medical History / Comment(s): Father at age 59 of a [place] Mother Family Medical History: CVA/TIA Additional Family Medical History / Comment(s): Mother of a brain hemorrage. General Exam - General Exam Comments Initial Comments: Constitutional: Awake alert Appears comfortable Head: Normocephalic atraumatic Eyes: no conjunctival injection No scleral icterus EOMI Neck: Questionable mild JVD Supple Heart: Regular rate rhythm normal S1-S2 no murmurs Lungs: The patient is tachypneic using accessory muscles and is in mild to moderate respiratory distress, he does have decreased lung sounds at the bases and some crackling Abdomen: Soft nondistended nontender Extremities: Non edematous DP pulses intact Radial pulses intact Neuro: A&Ox3 No focal neurologic deficits Psych: Appropriate mood and affect Limitations: no limitations Course Vital Signs 01/12/18 01/12/18 01/12/18 23:06 23:23 23:31 Temperature 97.9 F Pulse Rate 101 H 92 Respiratory 28 H 26 H 24 Rate Blood Pressure 148/66 O2 Sat by Pulse 85 L 98 Oximetry 01/13/18 00:03 Temperature Pulse Rate 91 Respiratory 20 Rate Blood Pressure 171/76 O2 Sat by Pulse 99 Oximetry EKG Findings - EKG Comments: EKG Findings:: EKG showing sinus tachycardia with a rate of 101. The patient is a right bundle-branch block however there is no abnormal ST segment changes or T-wave inversions. QTC is 523 and prolonged. Block. The T waves do appear prominent when compared to previous EKGs. There is one PVC. Medical Decision Making - Medical Decision Making This is a 77-year-old male who presents emergency department for chest pain and worsening shortness of breath. The patient was hypoxic on arrival and required a nonrebreather mask. He greatly improved on this however still requiring this. ABG obtained showed a significant AA gradient. Chest x-ray showed what appeared to be bilateral pneumonia worse on the right. The patient was started on Levaquin. The patient initially refused influenza swab however then later agreed to this. BNP was elevated over 21,000. Chest x-ray was read as possible heart failure. Because of this and the patient's normal vital signs and normal lactic acid initial IV fluid bolus was held and the patient will be gently hydrated and 75 mL an hour. I indicated to the patient is going to be staying in the hospital tonight because of the severe sepsis and pneumonia on x- ray. He stated they understood and agreed. Dr. robert accepts the admission. - Lab Data Result diagrams: 01/12/18 23:15 01/12/18 23:15 Lab Results 01/12/18 01/12/18 01/12/18 Range/Units 23:15 23:15 23:15 WBC 15.1 H (3.8-10.6) k/uL RBC 3.48 L (4.30-5.90) m/uL Hgb 9.5 L (13.0-17.5) gm/dL Hct 29.9 L (39.0-53.0) % MCV 86.0 (80.0-100.0) fL MCH 27.4 (25.0-35.0) pg MCHC 31.9 (31.0-37.0) g/dL RDW 13.9 (11.5-15.5) % Plt Count 276 (150-450) k/uL Neutrophils % 82 % Lymphocytes % 10 % Monocytes % 6 % Eosinophils % 1 % Basophils % 0 % Neutrophils # 12.4 H (1.3-7.7) k/uL Lymphocytes # 1.5 (1.0-4.8) k/uL Monocytes # 0.9 (0-1.0) k/uL Eosinophils # 0.1 (0-0.7) k/uL Basophils # 0.0 (0-0.2) k/uL PT (9.0-12.0) sec INR (<1.2) APTT (22.0-30.0) sec Sample Site ABG pH (7.35-7.45) ABG pCO2 (35-45) mmHg ABG pO2 (83-108) mmHg ABG HCO3 (21-25) mmol/L ABG Total CO2 (19-24) mmol/L ABG O2 Saturation (94-97) % ABG Base Excess mmol/L Andrés Test FiO2 % Sodium 143 (137-145) mmol/L Potassium 4.2 (3.5-5.1) mmol/L Chloride 108 H (98-107) mmol/L Carbon Dioxide 16 L (22-30) mmol/L Anion Gap 19 mmol/L BUN 46 H (9-20) mg/dL Creatinine 4.60 H (0.66-1.25) mg/dL Est GFR (CKD-EPI)AfAm 13 (>60 ml/min/1.73 sqM) Est GFR (CKD-EPI)NonAf 11 (>60 ml/min/1.73 sqM) Glucose 150 H (74-99) mg/dL Plasma Lactic Acid Gage 1.6 (0.7-2.0) mmol/L Calcium 8.7 (8.4-10.2) mg/dL Total Bilirubin 0.6 (0.2-1.3) mg/dL AST 10 L (17-59) U/L ALT 11 L (21-72) U/L Alkaline Phosphatase 79 (38-126) U/L Total Creatine Kinase (55-170) U/L CK-MB (CK-2) (0.0-2.4) ng/mL CK-MB (CK-2) Rel Index Troponin I (0.000-0.034) ng/mL NT-Pro-B Natriuret Pep pg/mL Total Protein 6.4 (6.3-8.2) g/dL Albumin 4.0 (3.5-5.0) g/dL 01/12/18 01/12/18 01/12/18 Range/Units 23:15 23:15 23:15 WBC (3.8-10.6) k/uL RBC (4.30-5.90) m/uL Hgb (13.0-17.5) gm/dL Hct (39.0-53.0) % MCV (80.0-100.0) fL MCH (25.0-35.0) pg MCHC (31.0-37.0) g/dL RDW (11.5-15.5) % Plt Count (150-450) k/uL Neutrophils % % Lymphocytes % % Monocytes % % Eosinophils % % Basophils % % Neutrophils # (1.3-7.7) k/uL Lymphocytes # (1.0-4.8) k/uL Monocytes # (0-1.0) k/uL Eosinophils # (0-0.7) k/uL Basophils # (0-0.2) k/uL PT 10.2 (9.0-12.0) sec INR 1.0 (<1.2) APTT 23.6 (22.0-30.0) sec Sample Site ABG pH (7.35-7.45) ABG pCO2 (35-45) mmHg ABG pO2 (83-108) mmHg ABG HCO3 (21-25) mmol/L ABG Total CO2 (19-24) mmol/L ABG O2 Saturation (94-97) % ABG Base Excess mmol/L Andrés Test FiO2 % Sodium (137-145) mmol/L Potassium (3.5-5.1) mmol/L Chloride (98-107) mmol/L Carbon Dioxide (22-30) mmol/L Anion Gap mmol/L BUN (9-20) mg/dL Creatinine (0.66-1.25) mg/dL Est GFR (CKD-EPI)AfAm (>60 ml/min/1.73 sqM) Est GFR (CKD-EPI)NonAf (>60 ml/min/1.73 sqM) Glucose (74-99) mg/dL Plasma Lactic Acid Gage (0.7-2.0) mmol/L Calcium (8.4-10.2) mg/dL Total Bilirubin (0.2-1.3) mg/dL AST (17-59) U/L ALT (21-72) U/L Alkaline Phosphatase (38-126) U/L Total Creatine Kinase 24 L (55-170) U/L CK-MB (CK-2) 0.7 (0.0-2.4) ng/mL CK-MB (CK-2) Rel Index 2.9 Troponin I 0.055 H* (0.000-0.034) ng/mL NT-Pro-B Natriuret Pep 27741 pg/mL Total Protein (6.3-8.2) g/dL Albumin (3.5-5.0) g/dL 01/12/18 Range/Units 23:47 WBC (3.8-10.6) k/uL RBC (4.30-5.90) m/uL Hgb (13.0-17.5) gm/dL Hct (39.0-53.0) % MCV (80.0-100.0) fL MCH (25.0-35.0) pg MCHC (31.0-37.0) g/dL RDW (11.5-15.5) % Plt Count (150-450) k/uL Neutrophils % % Lymphocytes % % Monocytes % % Eosinophils % % Basophils % % Neutrophils # (1.3-7.7) k/uL Lymphocytes # (1.0-4.8) k/uL Monocytes # (0-1.0) k/uL Eosinophils # (0-0.7) k/uL Basophils # (0-0.2) k/uL PT (9.0-12.0) sec INR (<1.2) APTT (22.0-30.0) sec Sample Site RRA ABG pH 7.40 (7.35-7.45) ABG pCO2 29 L (35-45) mmHg ABG pO2 89 (83-108) mmHg ABG HCO3 18 L (21-25) mmol/L ABG Total CO2 19 (19-24) mmol/L ABG O2 Saturation 96.2 (94-97) % ABG Base Excess -7.2 mmol/L Andrés Test Yes FiO2 80 % Sodium (137-145) mmol/L Potassium (3.5-5.1) mmol/L Chloride (98-107) mmol/L Carbon Dioxide (22-30) mmol/L Anion Gap mmol/L BUN (9-20) mg/dL Creatinine (0.66-1.25) mg/dL Est GFR (CKD-EPI)AfAm (>60 ml/min/1.73 sqM) Est GFR (CKD-EPI)NonAf (>60 ml/min/1.73 sqM) Glucose (74-99) mg/dL Plasma Lactic Acid Gage (0.7-2.0) mmol/L Calcium (8.4-10.2) mg/dL Total Bilirubin (0.2-1.3) mg/dL AST (17-59) U/L ALT (21-72) U/L Alkaline Phosphatase (38-126) U/L Total Creatine Kinase (55-170) U/L CK-MB (CK-2) (0.0-2.4) ng/mL CK-MB (CK-2) Rel Index Troponin I (0.000-0.034) ng/mL NT-Pro-B Natriuret Pep pg/mL Total Protein (6.3-8.2) g/dL Albumin (3.5-5.0) g/dL Disposition Clinical Impression: CAP (community acquired pneumonia), Severe sepsis, CKD (chronic kidney disease) , CHF (congestive heart failure) Disposition: ADMITTED IP TO THIS HOSP Condition: Serious
[2018-01-12 23:39] LABS: Basophils % (A) 0 %; Eosinophils # (A) 0.1 k/uL (0-0.7); Eosinophils % (A) 1 %; HCT 29.9 % (39.0-53.0); HGB 9.5 gm/dL (13.0-17.5); Lymphocytes # (A) 1.5 k/uL (1.0-4.8); Lymphocytes % (A) 10 %; MCH 27.4 pg (25.0-35.0); MCHC 31.9 g/dL (31.0-37.0); Mean Platelet Volume 9.3; Monocytes # (A) 0.9 k/uL (0-1.0); Monocytes % (A) 6 %; Neutrophils # (A) 12.4 k/uL (1.3-7.7); Neutrophils % (A) 82 %; Platelet Count 276 k/uL (150-450); RBC 3.48 m/uL (4.30-5.90); RDW 13.9 % (11.5-15.5); WBC 15.1 k/uL (3.8-10.6)
[2018-01-12] MEDS ORDERED: LEVOFLOXACIN 500MG-D5W PMX 500 MG in DEXTROSE/WATER 1 100ML.BAG IVPB STA (23:42)
[2018-01-12 23:49] LABS: Partial Thromboplastin Time 23.6 sec (22.0-30.0); Prothrombin Time 10.2 sec (9.0-12.0)
[2018-01-12 23:51] LABS: ABG Base Excess -7.2 mmol/L; ABG HCO3 18 mmol/L (21-25); ABG Oxygen Saturation 96.2 % (94-97); ABG PCO2 29 mmHg (35-45); ABG PO2 89 mmHg (83-108); ABG TCO2 19 mmol/L (19-24)
[2018-01-12 23:53] LABS: Calcium 8.7 mg/dL (8.4-10.2); Potassium 4.2 mmol/L (3.5-5.1); Total Bilirubin 0.6 mg/dL (0.2-1.3); Total Protein 6.4 g/dL (6.3-8.2)
--- NOTE | 2018-01-12 23:55 | XR ---
EXAMINATION TYPE: XR chest 1V portable DATE OF EXAM: 01/12/2018 COMPARISON: 05/06/2017 HISTORY: Chest pain TECHNIQUE: Single frontal view of the chest is obtained. FINDINGS: There is patchy airspace infiltrate in the right mid and lower lung field. The left lung a lso shows minimal infiltrate. Pulmonary vascularity is difficult to evaluate because of the lung dise ase. Heart size is normal. I see no definite pleural effusion. There are chest leads. IMPRESSION: Bilateral pneumonia and worse on the right side that is new compared to old exam. Mild h eart failure is possible.
[2018-01-13 00:17] LABS: Creatine Kinase MB 0.7 ng/mL (0.0-2.4)
[2018-01-13 00:27] LABS: Troponin I 0.055 ng/mL (0.000-0.034)
[2018-01-13] MEDS ORDERED: SODIUM CHLORIDE 0.9% 1,000 ML IV SCH (00:30)
[2018-01-13] MEDS ORDERED: NON-FORMULARY DRUG (Fish Oil/Dha/Epa [Fish Oil 1,200 Mg Fish Oil] 1 CAP) PO SCH (09:00)
[2018-01-13] MEDS ORDERED: NON-FORMULARY DRUG (Garlic [Garlic] 1 TAB) PO SCH (09:00)
[2018-01-13] MEDS: amLODIPine 10 MG TAB PO SCH (09:25)
[2018-01-13] MEDS: ASPIRIN 81 MG PO SCH (09:25)
[2018-01-13] MEDS: hydrALAZINE HCL 50 MG TAB PO SCH ×3 (09:25→20:08)
[2018-01-13 10:07] LABS: Amorphous Sediment,Urine Rare /hpf; Appearance,Urine Cloudy (Clear); Bilirubin,Urine Negative (Negative); Blood,Urine Negative (Negative); Color,Urine Yellow; Glucose,Urine (UA) Trace (Negative); Ketones,Urine Negative (Negative); Leukocyte Esterase,Urine Large (Negative); Mucus,Urine Rare /hpf; Nitrite,Urine Negative (Negative); PH, Urine 5.5 (5.0-8.0); Protein,Urine 2+ (Negative); Specific Gravity,Urine 1.014 (1.001-1.035); Squamous Epithelial Cell,Urine <1 /hpf (0-4); Urobilinogen,Urine <2.0 mg/dL (<2.0); WBC,Urine 19 /hpf (0-5)
--- NOTE | 2018-01-13 10:14 | CT ---
EXAMINATION TYPE: CT chest wo con DATE OF EXAM: 01/13/2018 COMPARISON: 11/19/2016 HISTORY: CHF exacerbation, difficulty breathing CT DLP: 536 mGycm. Automated Exposure Control for Dose Reduction was Utilized. TECHNIQUE: CT scan of the thorax is performed without IV contrast. FINDINGS: LUNGS: Moderate centrilobular pulmonary emphysema. Small left pleural effusion and moderate right ple ural effusion have occurred in the interim with bibasilar subsegmental atelectasis. Interlobular sept al thickening with honeycombing has occurred in the interim in the basilar dependent predominance.. T he tracheobronchial tree is patent. Right-sided peribronchial cuffing is incidentally noted. MEDIASTINUM: Lack of IV contrast is noted to limit evaluation for mediastinal and especially hilar ad enopathy. There are no definitive greater than 1 cm hilar or mediastinal lymph nodes. Mild cardiomega ly without pericardial effusion. Moderate three-vessel coronary artery calcifications are noted. Ther e is no enlargement of the ascending thoracic aorta measuring 3.1 cm or main pulmonary artery measuri ng 2.7 cm. OTHER: Incidental note of mild bilateral overall symmetric gynecomastia. Multiple subcentimeter hypoa ttenuated hepatic lesions are seen not entirely compatible with simple cysts the largest in segment 8 near the hepatic dome measuring 7 mm. These are too small to accurately character is. Note is made o f left-sided cortical renal atrophy and a small cortical renal cysts. Moderate calcific atheromatous changes are noted of the abdominal aorta and its branches. IMPRESSION: In addition to findings compatible with fluid overload likely on a cardiogenic basis with the moderat e right and small left pleural effusion and interlobular septal thickening there is new honeycombing suspicious for pulmonary fibrosis. Peribronchial cuffing on the right is also present that may repres ent bronchitis or atypical infection.
[2018-01-13] MEDS ORDERED: FUROSEMIDE 10 MG/ML 4 ML VIAL IV STA (10:17)
--- NOTE | 2018-01-13 10:31 | CONS ---
CONSULTATION This patient's medical are records reviewed. This patient is a 77-year-old gentleman who has a known history of CKD, congestive heart failure, CAD and possible COPD. The patient came with a history of shortness of breath of one-day duration. The patient has been having some nonproductive coughing. She denies any definite fever or chills. The patient has a mild chest discomfort. The patient has a previous history of coronary artery disease with stent to the RCA in 2007. At present the patient is not having any chest discomfort. HOME MEDICATIONS: Included Norvasc, garlic, hydralazine 50 mg t.i.d., and aspirin. PAST MEDICAL HISTORY: Includes history of a CA in 2013, history of lower GI bleed, iron deficiency anemia, chronic kidney disease, bilateral cataracts surgery, history of polypectomy, history of stent in 2007. FAMILY HISTORY: Otherwise unremarkable. PHYSICAL EXAMINATION: In the emergency room revealed the patient to be tachycardic. His temperature was normal. The patient's oxygen saturation was 85%. The patient at present is lying comfortably in the bed without any acute respiratory distress. The patient has a blood pressure is 180/74 mmHg and heart rate is 85 per minute. HEENT examination is negative. Neck is supple. Jugular venous pressure is difficult to assess, both the carotid pulses are felt. There is no bruit. Chest is symmetrical. HEART: The PMI is not felt. First and second heart sounds are normal. Lungs examination reveals bilateral rales. ABDOMEN: Soft. EXTREMITIES: Peripheral pulsations are not well felt. Chest x-ray shows bilateral infiltrates suggestive of heart failure and possible superimposed pneumonia on the right side. Patient's initial hemoglobin is 9.5, repeat white count is 15,000. The patient had evidence of metabolic acidosis. The patient's creatinine is 4.6. First troponin was 0.055, second troponin is 0.1545. BNP level is 21,000. EKG shows sinus tachycardia with a right bundle branch block pattern. FINAL IMPRESSION: 1. This patient primary presented with acute respiratory distress for the hypoxia. The patient possibly has a combination of pneumonia and congestive cardiac failure. 2. The patient has a mildly abnormal troponin, which could be secondary to type 2 myocardial injury because of multiple metabolic abnormalities including a hypoxia and kidney failure. The patient does not have any symptoms of chest pain suggestive of acute coronary syndrome. 3. Prior history of a stent to the RCA. RECOMMENDATIONS: At present, I would recommend to continue the patient on IV antibiotics. We will start the patient on Lasix 40 mg IV q.12h hourly. Echocardiogram would be done to assess the left ventricular wall motion abnormality. Further Pulmonary evaluation is suggested. We will get a noncontrast CT of the chest, as well as a procalcitonin level to confirm the diagnosis of pneumonia. MMODL / IJN: [id number] /
--- NOTE | 2018-01-13 10:45 | P.HPIM ---
History of Present Illness Patient is on is on-year-old gentleman came in with comments of shortness of breath is also comparing of orthopnea, she will proximal nocturnal dyspnea patient chest x-ray did show some pulmonary edema along with bilateral lower limb pneumonia and a CAT scan was obtained which is showing a bronchogram and pneumonia patient was started on Rocephin and azithromycin and patient was evaluated by cardiology patient was started on Lasix and patient does have elevated BNP although I did not appreciate any clear-cut JVD because of the his position. Patient appears to have 45% EF on the echocardiogram that was done today. Does appear to have severe pulmonary hypertension patient was also started on Lasix does have crackles in bilateral lower lung fish on exam. Patient denied any cough denied any fevers does have leukocytosis. Patient also complaining of chest pressure-like sensation with mildly elevated troponin this is being managed by cardiology. Review of Systems REVIEW OF SYSTEMS: CONSTITUTIONAL: No fever, no malaise, no fatigue. HEENT: No recent visual problems or hearing problems. Denied any sore throat. CARDIOVASCULAR: N, no palpitations, no syncope. PULMONARY: As mentioned in HPI GASTROINTESTINAL: No diarrhea, no nausea, no vomiting, no abdominal pain. Normoactive bowel sounds. NEUROLOGICAL: No headaches, no weakness, no numbness. HEMATOLOGICAL: Denies any bleeding or petechiae. GENITOURINARY: Denies any burning micturition, frequency, or urgency. MUSCULOSKELETAL/RHEUMATOLOGICAL: Denies any joint pain, swelling, or any muscle pain. ENDOCRINE: Denies any polyuria or polydipsia. The rest of the 14-point review of systems is negative. Past Medical History Past Medical History: Coronary Artery Disease (CAD), Chest Pain / Angina, Heart Failure, GI Bleed, Hyperlipidemia, Hypertension, Myocardial Infarction ([place]), Pneumonia, Renal Disease, Vascular Disorder Additional Past Medical History / Comment(s): [place] 2013, lower GI bleed, anemia, iron deficiency anemia, chronic kidney dx stage IV, diverticulosis, colon polyp (removed), PVD-pt needs bilateral leg bypass surgery but cannot have surgery unless he quits. smoking, neck fx as a young person with seizures following last one years ago. Last Myocardial Infarction Date:: 2013 History of Any Multi-Drug Resistant Organisms: None Reported Past Surgical History: Heart Catheterization With Stent Additional Past Surgical History / Comment(s): ccath with stents in 2007, EGD with bx and Colonoscopy with polypectomy, bilateral cataract removal with lens implants. Past Anesthesia/Blood Transfusion Reactions: No Reported Reaction Date of Last Stent Placement:: 2007 Past Psychological History: No Psychological Hx Reported Smoking Status: Current every day smoker Past Alcohol Use History: None Reported Past Drug Use History: None Reported - Past Family History Father Family Medical History: Myocardial Infarction ([place]) Additional Family Medical History / Comment(s): Father at age 59 of a [place] Mother Family Medical History: CVA/TIA Additional Family Medical History / Comment(s): Mother of a brain hemorrage. Medications and Allergies Home Medications Medication Instructions Recorded Confirmed Type Fish Oil/Dha/Epa [Fish Oil 1,200 1 cap PO BID 11/18/16 01/12/18 History mg Fish Oil] amLODIPine [Norvasc] 10 mg PO DAILY 11/18/16 01/12/18 History Aspirin 81 mg PO DAILY #30 chew 11/21/16 01/12/18 Rx Garlic 1 tab PO DAILY 01/12/18 01/12/18 History hydrALAZINE HCL [Hydralazine HCl] 50 mg PO TID 01/12/18 01/12/18 History Allergies Allergy/AdvReac Type Severity Reaction Status Date / Time No Known Allergies Allergy Verified 01/12/18 23:27 Physical Exam Vitals: Vital Signs Temp Pulse Resp BP Pulse Ox 01/13/18 09:24 85 16 180/74 92 L 01/13/18 06:25 78 20 153/70 95 01/13/18 05:25 97.9 F 78 18 185/69 99 01/13/18 04:25 78 18 151/69 99 01/13/18 03:25 98.9 F 79 20 147/79 100 01/13/18 02:25 88 20 144/62 96 01/13/18 01:26 86 20 184/103 98 01/13/18 00:03 91 20 171/76 99 01/12/18 23:31 92 24 98 01/12/18 23:23 26 H 01/12/18 23:06 97.9 F 101 H 28 H 148/66 85 L Intake and Output 01/12/18 01/13/18 01/13/18 22:59 06:59 14:59 Other: Weight 74.843 kg PHYSICAL EXAMINATION: GENERAL: The patient is alert and oriented x3, not in any acute distress. Well developed, well nourished. HEENT: Pupils are round and equally reacting to light. EOMI. No scleral icterus. No conjunctival pallor. Normocephalic, atraumatic. No pharyngeal erythema. No thyromegaly. CARDIOVASCULAR: S1 and S2 present. No murmurs, rubs, or gallops. PULMONARY: Respiratory crackles were appreciated good air entry bilateral lung fish. ABDOMEN: Soft, nontender, nondistended, normoactive bowel sounds. No palpable organomegaly. MUSCULOSKELETAL: No joint swelling or deformity. EXTREMITIES: No cyanosis, clubbing, or pedal edema. NEUROLOGICAL: Gross neurological examination did not reveal any focal deficits. SKIN: No rashes. Results CBC & Chem 7: 01/12/18 23:15 01/12/18 23:15 Labs: Abnormal Lab Results - Last 24 Hours (Table) 01/12/18 01/12/18 01/12/18 Range/Units 23:15 23:15 23:15 WBC 15.1 H (3.8-10.6) k/uL RBC 3.48 L (4.30-5.90) m/uL Hgb 9.5 L (13.0-17.5) gm/dL Hct 29.9 L (39.0-53.0) % Neutrophils # 12.4 H (1.3-7.7) k/uL ABG pCO2 (35-45) mmHg ABG HCO3 (21-25) mmol/L Chloride 108 H (98-107) mmol/L Carbon Dioxide 16 L (22-30) mmol/L BUN 46 H (9-20) mg/dL Creatinine 4.60 H (0.66-1.25) mg/dL Glucose 150 H (74-99) mg/dL AST 10 L (17-59) U/L ALT 11 L (21-72) U/L Total Creatine Kinase 24 L (55-170) U/L Troponin I 0.055 H* (0.000-0.034) ng/mL Urine Protein (Negative) Urine Glucose (UA) (Negative) Ur Leukocyte Esterase (Negative) Urine WBC (0-5) /hpf Amorphous Sediment (None) /hpf Urine Mucus (None) /hpf 01/12/18 01/13/1801/13/18 Range/Units 23:47 05:35 09:37 WBC (3.8-10.6) k/uL RBC (4.30-5.90) m/uL Hgb (13.0-17.5) gm/dL Hct (39.0-53.0) % Neutrophils # (1.3-7.7) k/uL ABG pCO2 29 L (35-45) mmHg ABG HCO3 18 L (21-25) mmol/L Chloride (98-107) mmol/L Carbon Dioxide (22-30) mmol/L BUN (9-20) mg/dL Creatinine (0.66-1.25) mg/dL Glucose (74-99) mg/dL AST (17-59) U/L ALT (21-72) U/L Total Creatine Kinase (55-170) U/L Troponin I 0.154 H* (0.000-0.034) ng/mL Urine Protein 2+ H (Negative) Urine Glucose (UA) Trace H (Negative) Ur Leukocyte Esterase Large H (Negative) Urine WBC 19 H (0-5) /hpf Amorphous Sediment Rare H (None) /hpf Urine Mucus Rare H (None) /hpf Assessment and Plan Plan: -Acute hypoxic respiratory failure multifactorial patient does appear to have a pneumonia as well as a prescription start failure patient has a pleuritic for pneumonia patient will be started on Rocephin and azithromycin patient was also started on Lasix by cardiology which will be continued. -Possibility of non-ST elevation microinfarction: Further management as per cardiology -Congestive heart failure possibly of chronic systolic dysfunction with acute exacerbation: IV fluids will be discussed any of any with Lasix -Coronary artery disease with previous stents in the past. -Possibility of interstitial lung disease -Severe pulmonary hypertension secondary pulmonary hypertension Hypertension -Hyperlipidemia
--- NOTE | 2018-01-13 11:01 | ECHOF ---
Referral Reason:Heart MEASUREMENTS -------- HEIGHT: 172.7 cm WEIGHT: 74.8 kg BP: 180/74 RVIDd: 3.6 cm (< 3.3) IVSd: 1.4 cm (0.6 - 1.1) LVIDd: 5.1 cm (3.9 - 5.3) LVPWd: 1.4 cm (0.6 - 1.1) IVSs: 1.8 cm LVIDs: 3.4 cm LVPWs: 1.9 cm LA Diam: 4.3 cm (2.7 - 3.8) LAESV Index (A-L): 46.65 ml/m Ao Diam: 3.1 cm (2.0 - 3.7) AV Cusp: 1.9 cm (1.5 - 2.6) MV EXCURSION: 17.354 mm (> 18.000) MV EF SLOPE: 108 mm/s (70 - 150) EPSS: 0.8 cm MV E Bhaskar: 1.04 m/s MV DecT: 124 ms MV A Bhaskar: 0.63 m/s MV E/A Ratio: 1.66 RAP: 5.00 mmHg RVSP: 58.45 mmHg FINDINGS -------- This was a technically good study. The left ventricular size is normal. There is moderate concentric left ventricular hypertrophy. O verall left ventricular systolic function is mild-moderately impaired with, an EF between 40 - 45 %. The right ventricle is mildly enlarged. LA is severely dilated >40 ml/m2 The right atrium is normal in size. There is mild aortic valve sclerosis. The mitral valve leaflets are mildly thickened. Mild mitral annular calcification present. Mild-t o-moderate mitral regurgitation is present. Mild tricuspid regurgitation present. There is severe pulmonary hypertension. The right ventricul ar systolic pressure, as measured by Doppler, is 58.45mmHg. There is no pulmonic regurgitation present. The aortic root size is normal. Normal inferior vena cava with normal inspiratory collapse consistent with estimated right atrial pre ssure of 5 mmHg. There is no pericardial effusion. CONCLUSIONS -------- 1. This was a technically good study. 2. The left ventricular size is normal. 3. There is moderate concentric left ventricular hypertrophy. 4. Overall left ventricular systolic function is mild-moderately impaired with, an EF between 40 - 45 %. 5. The right ventricle is mildly enlarged. 6. LA is severely dilated >40 ml/m2 7. The right atrium is normal in size. 8. There is mild aortic valve sclerosis. 9. The mitral valve leaflets are mildly thickened. 10. Mild mitral annular calcification present. 11. Ngat-[id number] mitral regurgitation is present. 12. Mild tricuspid regurgitation present. 13. There is severe pulmonary hypertension. 14. The right ventricular systolic pressure, as measured by Doppler, is 58.45mmHg. 15. There is no pulmonic regurgitation present. 16. The aortic root size is normal. 17. Normal inferior vena cava with normal inspiratory collapse consistent with estimated right atrial pressure of 5 mmHg. 18. There is no pericardial effusion. ASSISTANT PROFESSOR OF BUSINESS: Patriica Penny RDCS
--- NOTE | 2018-01-13 16:49 | CDI ---
Last Revision, August 2017 Documentation Clarification Form Date: 01/13/2018 4:44:00 PM From: Latha CORINA Sung, CCDS Admit Date: 01/13/2018 12:27:00 AM Patient Name: Wesley Giraldo Visit Number: [id number] Discharge Date: ATTENTION: The Clinical Documentation Specialists (CDI) and [facility] Coding Staff appreciate your assistance in clarifying documentation. Please respond to the clarification below the line at the bottom and electronically sign. The CDI & [facility] Coding staff will review the response and follow-up if needed. Please note: Queries are made part of the Legal Health Record. If you have any questions, please contact the author of this message via ITS. Dr. Lawson Recio: 77 yo male, presented to ED with chest pain & SOB, nonproductive cough. Possible Sepsis risk per Sepsis screening. Diagnosed with Community Acquired Pneumonia, Acute Exacerbation of Systolic CHF & Acute Hypoxic Respiratory Failure. History/Risk Factors: CAD w/stents, Hypertension, CHF & CKD. Current smoker. Clinical Indicators: WBC: 15.1, Neut 12.4. Lactic acid: (1.6) Blood & Sputum cultures ordered, pending. Urine Culture final pending. Vitals signs on admission: T (97.9), P 101, R 28 (sob, labored, accessory muscle use, tachypnea); BP 148/66, PO 85 RA Treatment: IV Levaquin, IV fl rate 75, IV Lasix, IV Rocephin, O2: 15% nrb. In your professional opinion, please clarify if these findings signify one of the following conditions, whether the condition is POA, and cause, if known: Sepsis o Ruled In o Ruled Out Severe Sepsis Other, please specify Unable to determine Present on Admission: o Yes o No Please continue to document in your progress notes and discharge summary in order to capture severity of illness and risk of mortality. Include clinical findings that support your diagnosis. Appropriate documentation was documented in the note MTDD
[2018-01-13] MEDS: IPRATROPIUM-ALBUTEROL 3 ML NEB INHALATION PRN ×2 (18:49→22:50)
[2018-01-13] MEDS: FUROSEMIDE 10 MG/ML 4 ML VIAL IV SCH (20:09)
[2018-01-13] MEDS: ACETAMINOPHEN TAB 325 MG TAB PO PRN (20:20)
[2018-01-13] MEDS: ALPRAZolam 0.25 MG TAB PO PRN (23:23)
[2018-01-13] MEDS: IPRATROPIUM-ALBUTEROL 3 ML NEB INHALATION SCH (23:33)
[2018-01-14 06:32] LABS: HCT 24.5 % (39.0-53.0); MCHC 32.3 g/dL (31.0-37.0); MCV 86.8 fL (80.0-100.0); Mean Platelet Volume 8.6; Platelet Count 223 k/uL (150-450); RBC 2.82 m/uL (4.30-5.90); RDW 13.5 % (11.5-15.5); WBC 8.3 k/uL (3.8-10.6)
[2018-01-14 06:35] LABS: HGB 7.9 gm/dL (13.0-17.5)
[2018-01-14 06:48] LABS: Calcium 8.5 mg/dL (8.4-10.2); Potassium 4.4 mmol/L (3.5-5.1)
[2018-01-14] MEDS: IPRATROPIUM-ALBUTEROL 3 ML NEB INHALATION SCH ×4 (07:36→20:01)
[2018-01-14] MEDS: ASPIRIN 81 MG PO SCH (08:30)
[2018-01-14] MEDS: FUROSEMIDE 10 MG/ML 4 ML VIAL IV SCH ×2 (08:30→22:29)
[2018-01-14] MEDS: AZITHROMYCIN 500 MG TAB PO SCH (08:30)
[2018-01-14] MEDS: hydrALAZINE HCL 50 MG TAB PO SCH ×3 (08:31→22:29)
[2018-01-14] MEDS: amLODIPine 10 MG TAB PO SCH (08:31)
[2018-01-14] MEDS: cefTRIAXone IN SWFI 1,000 MG/10 ML SYRINGE IVP SCH (08:32)
--- NOTE | 2018-01-14 09:58 | P.CNPUL ---
History of Present Illness Consult date: 01/14/18 Reason for consult: dyspnea, cough, COPD, pleural effusion, pulmonary fibrosis, abnormal CXR/CT Chief complaint: Shortness of breath History of present illness: Pulmonary consult dated 01/14/2018 This is a 77-year-old male with a history of chronic kidney disease heart failure and CAD who presents to the emergency department for complaints of chest pressure and shortness of breath. His shortness of breath is been gradual over the last couple of days. In addition, he had intermittent chest pressure. No lower extremity edema noted. The patient has had a bit of cough. Not much. Nonproductive. No fever or chills. Not producing any phlegm to any great extent. No history of underlying COPD. Was a smoker in the past. Chest x-ray and CAT scan and lab data suggest heart failure. There was also a component of possible pulmonary fibrosis on that based on the CAT scan. This will have to be worked up as an outpatient. In addition, there is a history of CAD angina heart failure GI bleed hyperlipidemia hypertension myocardial infarction R deficiency anemia stage IV chronic kidney disease diverticular disease colonic polyp peripheral vascular occlusive disease, etc. The patient states that he feels much better today than he did yesterday when he first came into the emergency department. Review of Systems A 12 point review of system is positive for shortness of breath and some intermittent chest pain. A bit of a cough which is nonproductive. No fever or chills. No nausea vomiting or diarrhea. No chest congestion. Past Medical History Past Medical History: Coronary Artery Disease (CAD), Chest Pain / Angina, Heart Failure, GI Bleed, Hyperlipidemia, Hypertension, Myocardial Infarction ([place]), Pneumonia, Renal Disease, Vascular Disorder Additional Past Medical History / Comment(s): [place] 2013, lower GI bleed, anemia, iron deficiency anemia, chronic kidney dx stage IV, diverticulosis, colon polyp (removed), PVD-pt needs bilateral leg bypass surgery but cannot have surgery unless he quits. smoking, neck fx as a young person with seizures following last one years ago. Last Myocardial Infarction Date:: 2013 History of Any Multi-Drug Resistant Organisms: None Reported Past Surgical History: Heart Catheterization With Stent Additional Past Surgical History / Comment(s): ccath with stents in 2007, EGD with bx and Colonoscopy with polypectomy, bilateral cataract removal with lens implants. Past Anesthesia/Blood Transfusion Reactions: No Reported Reaction Date of Last Stent Placement:: 2007 Smoking Status: Current every day smoker - Past Family History Father Family Medical History: Myocardial Infarction ([place]) Additional Family Medical History / Comment(s): Father at age 59 of a [place] Mother Family Medical History: CVA/TIA Additional Family Medical History / Comment(s): Mother of a brain hemorrage. Medications and Allergies Home Medications Medication Instructions Recorded Confirmed Type Fish Oil/Dha/Epa [Fish Oil 1,200 1 cap PO BID 11/18/16 01/12/18 History mg Fish Oil] amLODIPine [Norvasc] 10 mg PO DAILY 11/18/16 01/12/18 History Aspirin 81 mg PO DAILY #30 chew 11/21/16 01/12/18 Rx Garlic 1 tab PO DAILY 01/12/18 01/12/18 History hydrALAZINE HCL [Hydralazine HCl] 50 mg PO TID 01/12/18 01/12/18 History Allergies Allergy/AdvReac Type Severity Reaction Status Date / Time No Known Allergies Allergy Verified 01/12/18 23:27 Physical Exam Osteopathic Statement: *. No significant issues noted on an osteopathic structural exam other than those noted in the History and Physical/Consult. Vitals: Vital Signs Temp Pulse Pulse Resp BP BP Pulse Ox 01/14/18 08:39 97.6 F 89 18 137/63 91 L 01/14/18 08:26 97.6 F 89 18 137/63 91 L 01/14/18 07:46 82 01/14/18 07:36 80 01/14/18 04:00 98.5 F 78 18 125/81 94 L 01/14/18 00:00 98.5 F 86 18 150/68 94 L 01/13/18 22:53 88 01/13/18 22:45 85 01/13/18 20:00 99 F 91 20 163/70 94 L 01/13/18 19:01 88 18 01/13/18 18:50 89 18 91 L 01/13/18 15:38 91 20 01/13/18 15:36 98.5 F 91 20 177/76 91 L 01/13/18 12:52 83 16 171/74 92 L 01/13/18 10:43 16 Intake and Output 01/13/18 01/14/1801/14/18 22:59 06:59 14:59 Intake Total 125 125 Output Total 800 Balance 125 -800 125 Intake: Oral 125 125 Output: Urine 800 Other: Voiding Method Urinal Urinal Urinal Weight 72 kg No acute distress, oriented 3. Nasal O2 in place. HEENT examination is grossly unremarkable. Mucous membranes are moist. No oral lesions. Neck supple. Full range of motion. No adenopathy thyromegaly or neck vein distention. Cardiovascular examination reveals regular rhythm rate. S1-S2 normal. No S3 or S4. No discernible murmur noted. Lungs reveal a few scattered rhonchi. Some bibasilar crackles. Breath sounds are equal bilaterally. Abdomen soft bowel sounds are heard. No masses or tenderness. Extremities are intact. No cyanosis clubbing or edema. Skin is without rash or lesion. Neurologic examination is brief but nonfocal. Results - Laboratory Findings CBC and BMP: 01/14/18 05:27 01/14/18 05:27 ABG ABG pH 7.40 (7.35-7.45) 01/12/18 23:47 ABG pCO2 29 mmHg (35-45) L 01/12/18 23:47 ABG pO2 89 mmHg (83-108) 01/12/18 23:47 ABG O2 Saturation 96.2 % (94-97) 01/12/18 23:47 PT/INR, D-dimer PT 10.2 sec (9.0-12.0) 01/12/18 23:15 INR 1.0 (<1.2) 01/12/18 23:15 Abnormal lab findings: Abnormal Labs 01/12/18 01/12/18 01/12/18 23:15 23:15 23:15 WBC 15.1 H RBC 3.48 L Hgb 9.5 L Hct 29.9 L Neutrophils # 12.4 H ABG pCO2 ABG HCO3 Chloride 108 H Carbon Dioxide 16 L BUN 46 H Creatinine 4.60 H Glucose 150 H AST 10 L ALT 11 L Total Creatine Kinase 24 L Troponin I 0.055 H* Procalcitonin Urine Protein Urine Glucose (UA) Ur Leukocyte Esterase Urine WBC Amorphous Sediment Urine Mucus 01/12/18 01/12/18 01/13/18 23:15 23:47 05:35 WBC RBC Hgb Hct Neutrophils # ABG pCO2 29 L ABG HCO3 18 L Chloride Carbon Dioxide BUN Creatinine Glucose AST ALT Total Creatine Kinase Troponin I 0.154 H* Procalcitonin 0.66 H Urine Protein Urine Glucose (UA) Ur Leukocyte Esterase Urine WBC Amorphous Sediment Urine Mucus 01/13/18 01/14/18 01/14/18 09:37 05:27 05:27 WBC RBC 2.82 L Hgb 7.9 L D Hct 24.5 L Neutrophils # ABG pCO2 ABG HCO3 Chloride 108 H Carbon Dioxide 21 L BUN 50 H Creatinine 5.00 H* Glucose AST ALT Total Creatine Kinase Troponin I Procalcitonin Urine Protein 2+ H Urine Glucose (UA) Trace H Ur Leukocyte Esterase Large H Urine WBC 19 H Amorphous Sediment Rare H Urine Mucus Rare H - Diagnostic Findings Chest x-ray: image reviewed CT scan - chest: image reviewed (Chest x-ray, CAT scan, labs and medications are all reviewed.) Assessment and Plan Assessment: Assessment Shortness of breath, most likely related to underlying CHF Possible pneumonia though much less likely History of advanced chronic kidney disease Previous history of myocardial infarction History of CAD History of GI bleed Hyperlipidemia Hypertension Peripheral vascular occlusive disease. Ongoing tobacco use and nicotine addiction Possible pulmonary fibrosis Multiple other medical problems and comorbidities. Plan: Plan dated 01/14/2018 The patient's medications labs and x-rays are reviewed. Based on the elevated N -terminal proBNP, the pattern on chest x-ray and CAT scan, and the patient's pulmonary examination, I believe heart failure to the most likely explanation of the patient's shortness of breath. There may be a component of underlying COPD. Also, CAT scan revealed evidence of what appears to be some pulmonary fibrosis. Both should be worked up as an outpatient once the patient is discharged. I be happy to see him in the office where we will do a 6 minute walk distance a complete pulmonary function test. Also as an outpatient, a high -resolution computed tomography scan would be valuable. This is helped when her rule out interstitial lung disease. Additional recommendations and suggestions are forthcoming. Please see my recommendations in regards to medications. Certainly diuretics are critical. Time with Patient: Greater than 30
--- NOTE | 2018-01-14 10:44 | P.NPCON ---
History of Present Illness - Reason for Consult chronic renal failure - History of Present Illness Patient is a 77-year-old male with history of chronic kidney disease NKF stage V secondary to nephrosclerosis. Patient also has coronary artery disease he was admitted to the hospital with complaints of chest pain chest pressure not feeling well. He has also been feeling weak and fatigued. Patient was scheduled to start renal replacement therapy and was scheduled to have a permacath placed by Dr. Shafer next week. Previously he had refused renal replacement therapy but now has decided to proceed with it. Patient denies any obvious bleeding. Chest x-ray shows evidence of bilateral pneumonia as well as pulmonary vascular congestion. Patient had some chills he denies any fever he has been coughing. No nausea vomiting abdominal pain however appetite has been poor. Review of Systems As per HPI other systems negative Past Medical History Past Medical History: Coronary Artery Disease (CAD), Chest Pain / Angina, Heart Failure, GI Bleed, Hyperlipidemia, Hypertension, Myocardial Infarction ([place]), Pneumonia, Renal Disease, Vascular Disorder Additional Past Medical History / Comment(s): [place] 2013, lower GI bleed, anemia, iron deficiency anemia, chronic kidney dx stage IV, diverticulosis, colon polyp (removed), PVD-pt needs bilateral leg bypass surgery but cannot have surgery unless he quits. smoking, neck fx as a young person with seizures following last one years ago. Last Myocardial Infarction Date:: 2013 History of Any Multi-Drug Resistant Organisms: None Reported Past Surgical History: Heart Catheterization With Stent Additional Past Surgical History / Comment(s): ccath with stents in 2007, EGD with bx and Colonoscopy with polypectomy, bilateral cataract removal with lens implants. Past Anesthesia/Blood Transfusion Reactions: No Reported Reaction Date of Last Stent Placement:: 2007 Smoking Status: Current every day smoker - Past Family History Father Family Medical History: Myocardial Infarction ([place]) Additional Family Medical History / Comment(s): Father at age 59 of a [place] Mother Family Medical History: CVA/TIA Additional Family Medical History / Comment(s): Mother of a brain hemorrage. Medications and Allergies Home Medications Medication Instructions Recorded Confirmed Type Fish Oil/Dha/Epa [Fish Oil 1,200 1 cap PO BID 11/18/16 01/12/18 History mg Fish Oil] amLODIPine [Norvasc] 10 mg PO DAILY 11/18/16 01/12/18 History Aspirin 81 mg PO DAILY #30 chew 11/21/16 01/12/18 Rx Garlic 1 tab PO DAILY 01/12/18 01/12/18 History hydrALAZINE HCL [Hydralazine HCl] 50 mg PO TID 01/12/18 01/12/18 History Allergies Allergy/AdvReac Type Severity Reaction Status Date / Time No Known Allergies Allergy Verified 01/12/18 23:27 Physical Exam Vitals: Vital Signs Temp Pulse Pulse Resp BP BP Pulse Ox 01/14/18 08:39 97.6 F 89 18 137/63 91 L 01/14/18 08:26 97.6 F 89 18 137/63 91 L 01/14/18 07:46 82 01/14/18 07:36 80 01/14/18 04:00 98.5 F 78 18 125/81 94 L 01/14/18 00:00 98.5 F 86 18 150/68 94 L 01/13/18 22:53 88 01/13/18 22:45 85 01/13/18 20:00 99 F 91 20 163/70 94 L 01/13/18 19:01 88 18 01/13/18 18:50 89 18 91 L 01/13/18 15:38 91 20 01/13/18 15:36 98.5 F 91 20 177/76 91 L 01/13/18 12:52 83 16 171/74 92 L 01/13/18 10:43 16 Intake and Output 01/13/18 01/14/18 01/14/18 22:59 06:59 14:59 Intake Total 125 125 Output Total 800 Balance 125 -800 125 Intake: Oral 125 125 Output: Urine 800 Other: Voiding Method Urinal Urinal Urinal Weight 72 kg On examination patient is comfortable he is not in any acute distress. Blood pressure is 137/63 heart rate 89/m he is afebrile Examination of the heart S1 and S2 Exertion lungs bilateral breath sounds are heard decreased breath sounds bases with basilar crackles heard bilaterally. Abdomen is soft nontender Examination lower extremities shows trace edema bilaterally. 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 Agent is moving all 4 extremities no asterixis is noted Results - Lab Results Most recent lab results ABG pH 7.40 (7.35-7.45) 01/12/18 23:47 ABG pCO2 29 mmHg (35-45) L 01/12/18 23:47 ABG pO2 89 mmHg (83-108) 01/12/18 23:47 ABG HCO3 18 mmol/L (21-25) L 01/12/18 23:47 ABG O2 Saturation 96.2 % (94-97) 01/12/18 23:47 Calcium 8.5 mg/dL (8.4-10.2) 01/14/18 05:27 01/14/18 05:27 01/14/18 05:27 Assessment and Plan Plan: Assessment 1. Chronic kidney disease secondary to nephrosclerosis currently stage V with uremic symptoms. Patient was scheduled to have his dialysis catheter placed next week as outpatient however we will proceed with catheter placement and start renal replacement therapy this admission. 2. Bilateral pneumonia maintained on antibiotics 3. Fluid overload continue to diurese patient. Increase Lasix to 80 mg every 12 hours. 4. Anemia of chronic disease rule out iron deficiency 5. Coronary artery disease with complaints of chest pressure this admission. Troponin is mildly elevated at 0.154 Plan Increase Lasix Consult vascular surgery for dialysis catheter placement and schedule first treatment tomorrow. Start Aranesp and check iron studies. Check phosphorus levels. Continue antibiotics. Thank you for the consultation we'll continue to follow the patient with you during his hospitalization
[2018-01-14 11:24] LABS: INR 1.1 (<1.2)
[2018-01-14] MEDS ORDERED: DARBEPOETIN ALFA 40 MCG/0.4 ML SYRINGE SQ SCH (12:00)
--- NOTE | 2018-01-14 14:25 | P.PN ---
Subjective Shortness of breath multifactorial, patient is significant clinical improvement. Patient had episodes of proximal nocturnal dyspnea as today but improved patient is still short of breath is in mild respiratory distress patient will receive paralysis Tomorrow patient will undergo dialysis tomorrow. Patient has can start failure tonic systolic dysfunction ejection fraction of 45% leading to pulmonary edema along with the end-stage renal disease patient will be initiated on hemodialysis along with pulmonary fibrosis and also possibly a competent of pneumonia that are contributing to his symptoms. Patient is being treated for all these. Constitutional: Denied any fatigue denied any fever. Cardio vascular: denied any chest pain, palpitations Gastrointestinal denied any nausea vomiting Pulmonary: As mentioned in HPI Neurologic denied any new focal deficits Objective - Vital Signs Vital signs: Vital Signs Temp 97.5 F L 01/14/18 11:23 Pulse 81 01/14/18 11:23 Resp 18 01/14/18 11:23 BP 131/60 01/14/18 11:23 Pulse Ox 94 L 01/14/18 11:23 Intake & Output 01/13/18 01/14/18 01/14/18 18:59 06:59 18:59 Intake Total 125 145 Output Total 800 Balance 125 -800 145 Weight 72 kg 72 kg Intake: Oral 125 145 Output: Urine 800 Other: Voiding Method Urinal Urinal Urinal - Exam PHYSICAL EXAMINATION: GENERAL: The patient is alert and oriented x3, not in any acute distress. Well developed, well nourished. HEENT: Pupils are round and equally reacting to light. EOMI. No scleral icterus. No conjunctival pallor. Normocephalic, atraumatic. No pharyngeal erythema. No thyromegaly. CARDIOVASCULAR: S1 and S2 present. No murmurs, rubs, or gallops. PULMONARY: Respiratory crackles were appreciated good air entry bilateral lung fish. ABDOMEN: Soft, nontender, nondistended, normoactive bowel sounds. No palpable organomegaly. MUSCULOSKELETAL: No joint swelling or deformity. EXTREMITIES: No cyanosis, clubbing, or pedal edema. NEUROLOGICAL: Gross neurological examination did not reveal any focal deficits. SKIN: No rashes. - Labs CBC & Chem 7: 01/14/18 05:27 01/14/18 05:27 Labs: Abnormal Lab Results - Last 24 Hours (Table) 01/12/18 01/14/18 01/14/18 Range/Units 23:15 05:27 05:27 RBC 2.82 L (4.30-5.90) m/uL Hgb 7.9 L D (13.0-17.5) gm/dL Hct 24.5 L (39.0-53.0) % Chloride 108 H (98-107) mmol/L Carbon Dioxide 21 L (22-30) mmol/L BUN 50 H (9-20) mg/dL Creatinine 5.00 H* (0.66-1.25) mg/dL Procalcitonin 0.66 H (0.02-0.09) ng/mL Microbiology - Last 24 Hours (Table) 01/13/18 09:37 Urine Culture - Final Urine,Voided 01/12/18 23:15 Blood Culture - Preliminary Blood No Growth after 24 hours Assessment and Plan Plan: -Acute hypoxic respiratory failure multifactorial patient does appear to have a pneumonia as well as a prescription start failure patient has a pleuritic for pneumonia patient will be started on Rocephin and azithromycin patient is on Lasix dose of which was increased by nephrology -Chronic kidney disease stage V or end-stage renal failure: Patient will be initiated on hemodialysis -Possibility of non-ST elevation microinfarction: Further management as per cardiology -Congestive heart failure possibly of chronic systolic dysfunction with acute exacerbation: IV fluids will be discussed any of any with Lasix -Coronary artery disease with previous stents in the past. -Possibility of interstitial lung disease -Severe pulmonary hypertension secondary pulmonary hypertension Hypertension -Hyperlipidemia
[2018-01-14 16:41] LABS: Iron Saturation 8.12 (15.00-50.00)
[2018-01-14] MEDS: ALPRAZolam 0.25 MG TAB PO PRN (22:29)
[2018-01-15] MEDS: ALPRAZolam 0.25 MG TAB PO PRN (06:46)
--- NOTE | 2018-01-15 07:10 | XR ---
EXAMINATION TYPE: XR chest 1V portable DATE OF EXAM: 01/15/2018 HISTORY: chf. REFERENCE: Previous study dated 01/12/2018. FINDINGS: There continue to be patchy, bilateral infiltrates. Aeration on the right has improved some what. There is underlying COPD. The heart is not enlarged. No definite pleural fluid is seen. IMPRESSION: SLIGHT IMPROVEMENT IN AERATION OF THE RIGHT LUNG.
[2018-01-15 07:29] LABS: Calcium 8.9 mg/dL (8.4-10.2); Potassium 4.5 mmol/L (3.5-5.1)
[2018-01-15] MEDS: IPRATROPIUM-ALBUTEROL 3 ML NEB INHALATION SCH ×4 (07:31→20:21)
[2018-01-15] MEDS ORDERED: SODIUM CHLORIDE 0.9% 500 ML IV ONE (08:24)
[2018-01-15] MEDS ORDERED: MIDAZOLAM 2 MG/2 ML VIAL IV ONE (08:32)
[2018-01-15] MEDS ORDERED: LIDOCAINE 2% INJ 20 MG/ML SQ ONE (08:32)
--- NOTE | 2018-01-15 09:54 | PN ---
PROGRESS NOTE Patient is seen for followup for chronic kidney disease. He was admitted to the hospital with complaints of not feeling well and increased weakness. He was also short of breath. He was found to have pneumonia on the chest x-ray along with volume overload. The patient is scheduled for hemodialysis catheter placement today and we will proceed with his 1st treatment of hemodialysis today. He states he is feeling fairly well. EXAMINATION: This morning blood pressure was 132/82, heart rate 88 per minute patient is afebrile. Examination of the heart S1, S2. Examination lungs bilateral breath sounds are heard. Abdomen is soft, nontender. Examination lower extremity shows no significant edema. 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 Patient moving all 4 extremities. LAB: Show sodium 146, potassium 5.5, BUN 60, serum creatinine 5.09. ASSESSMENT: 1. Chronic kidney disease and NKF stage 5 secondary to nephrosclerosis. We will proceed with the renal replacement therapy. Patient is scheduled for hemodialysis catheter placement today. He will have his first treatment today. 2. Uremia as outpatient. Expect improvement with initiation of renal replacement therapy. 3. Pneumonia with bilateral infiltrates, maintained on empiric antibiotics, although this may be more mainly fluid overload. 4. Congestive heart failure, fluid overload, maintained on Lasix which I will continue at the current dose. 5. Anemia with no active bleeding noted maintained on Aranesp. 6. Urinary tract infection. 7. Pyuria with urine culture showing no growth. PLAN: The first treatment of hemodialysis today. The patient will need outpatient placement. MMODL / IJN: [id number] /
--- NOTE | 2018-01-15 10:30 | CONS ---
DATE OF CONSULTATION: 01/15/2018 This is a 77-year-old male who has history of chronic kidney disease secondary to nephrosclerosis, history of coronary artery disease. I was consulted for placement of the dialysis catheter. Patient has been admitted with a diagnosis of coronary artery disease, history of heart failure, history of GI bleed, history of hyperlipidemia, history of hypertension, myocardial infarction in the past. SURGICAL HISTORY: Patient had heart catheterization and stent in the past. PHYSICAL EXAMINATION: Neck is supple. Trachea central. Chest a few crackles at the lung bases. Abdomen is soft. Brachial radial femoral pulses are present. IMPRESSION: 1. Acute renal failure. 2. History of coronary artery disease. PLAN: Placement of the dialysis catheter. Risks and complication discussed, bleeding, infection, thrombosis. MMODL / IJN: [id number] / MTDD
[2018-01-15] MEDS: hydrALAZINE HCL 50 MG TAB PO SCH ×3 (11:17→21:12)
[2018-01-15] MEDS: ASPIRIN 81 MG PO SCH (11:17)
[2018-01-15] MEDS: AZITHROMYCIN 500 MG TAB PO SCH (11:17)
[2018-01-15] MEDS: amLODIPine 10 MG TAB PO SCH (11:17)
[2018-01-15] MEDS: FUROSEMIDE 10 MG/ML 4 ML VIAL IV SCH ×2 (11:17→21:55)
[2018-01-15] MEDS: cefTRIAXone IN SWFI 1,000 MG/10 ML SYRINGE IVP SCH (11:17)
--- NOTE | 2018-01-15 11:18 | PCN ---
PROCEDURE NOTE PREOPERATIVE DIAGNOSIS: Acute chronic failure. PROCEDURE: Placement of a 28 cm dialysis catheter, ultrasound-guided, right jugular approach and under conscious sedation time is 30 minutes. Patient was brought to the [facility]. Right side of the neck and chest was prepped and draped in sterile manner, 1% lidocaine for the right neck and chest area. After that, ultrasound-guided micropuncture right jugular vein. Micropuncture guide was passed and checked with the C-arm. After that a 4-Kenyan dilator advanced on the top of the micropuncture guidewire. Then we made a tunnel, the tunnel was brought through dialysis catheter. After that, dilator was passed on the top of the guidewire, then we passed a sheath on top of the guidewire. Under fluoroscopy control, dialysis catheter was placed as sheath was removed. Flushed with heparin saline. Tip of the catheter in superior vena cava and atrium, flushed with heparin saline and hep-locked. Incision was closed with Vicryl and nylon. Dressing applied. Patient tolerated the procedure well. MMODL / IJN: [id number] /
--- NOTE | 2018-01-15 13:14 | PN ---
PROGRESS NOTE This patient was admitted with respiratory distress. Patient also has acute on chronic renal failure and patient underwent dialysis today. Blood pressure is 126/61 mmHg. First and second heart sounds are normal. Lung examination reveals bilateral few basal rales. Patient's procalcitonin 0.65 suggestive for pneumonia. We will continue the patient on antibiotic treatment. MMODL / IJN: [id number] /
--- NOTE | 2018-01-15 13:19 | XR ---
EXAMINATION TYPE: XR chest 1V portable DATE OF EXAM: 01/15/2018 HISTORY: post dialysis cath. REFERENCE: Previous study dated 01/15/2018. FINDINGS: There has been interval placement of a large-bore, double-lumen catheter via a right programming intern al jugular approach. Its tip is at the cavoatrial junction. I do not see evidence of pneumothorax. There is improved interstitial change. Heart remains upper limits of normal in size. There is some le ft basilar airspace disease. IMPRESSION: 1. NO POST CATHETER PLACEMENT COMPLICATION. 2. IMPROVING CHANGES OF CONGESTIVE HEART FAILURE.
--- NOTE | 2018-01-15 13:36 | P.PN ---
Subjective Shortness of breath multifactorial, patient is significant clinical improvement. Patient had episodes of proximal nocturnal dyspnea as today but improved patient is still short of breath is in mild respiratory distress patient will receive paralysis Tomorrow patient will undergo dialysis tomorrow. Patient has can start failure tonic systolic dysfunction ejection fraction of 45% leading to pulmonary edema along with the end-stage renal disease patient will be initiated on hemodialysis along with pulmonary fibrosis and also possibly a competent of pneumonia that are contributing to his symptoms. Patient is being treated for all these. 01/15/2018 Patient had a permanent hemodialysis catheter placement today. Patient received hemodialysis feeling tired because of hemodialysis. Shortness of breath although improved patient had improved radiation the lungs does still have crackles Constitutional: Denied any fatigue denied any fever. Cardio vascular: denied any chest pain, palpitations Gastrointestinal denied any nausea vomiting Pulmonary: As mentioned in HPI Neurologic denied any new focal deficits Objective - Vital Signs Vital signs: Vital Signs Temp 98.0 F 01/15/18 11:34 Pulse 80 01/15/18 12:49 Resp 18 01/15/18 11:35 BP 126/61 01/15/18 11:34 Pulse Ox 96 01/15/18 11:34 Intake & Output 01/14/18 01/15/18 01/15/18 18:59 06:59 18:59 Intake Total 905 290 Output Total 250 500 300 Balance 655 -500 -10 Weight 72 kg 72.4 kg Intake: IV 50 Oral 905 240 Output: Urine 250 500 300 Other: Voiding Method Urinal Urinal Urinal # Voids 1 1 - Exam PHYSICAL EXAMINATION: GENERAL: The patient is alert and oriented x3, not in any acute distress. Well developed, well nourished. HEENT: Pupils are round and equally reacting to light. EOMI. No scleral icterus. No conjunctival pallor. Normocephalic, atraumatic. No pharyngeal erythema. No thyromegaly. CARDIOVASCULAR: S1 and S2 present. No murmurs, rubs, or gallops. PULMONARY: Respiratory crackles were appreciated good air entry bilateral lung fish. ABDOMEN: Soft, nontender, nondistended, normoactive bowel sounds. No palpable organomegaly. MUSCULOSKELETAL: No joint swelling or deformity. EXTREMITIES: No cyanosis, clubbing, or pedal edema. NEUROLOGICAL: Gross neurological examination did not reveal any focal deficits. SKIN: No rashes. - Labs CBC & Chem 7: 05/04/18 05:27 01/15/18 06:58 Labs: Abnormal Lab Results - Last 24 Hours (Table) 01/14/18 01/15/18 Range/Units 10:58 06:58 Sodium 146 H (137-145) mmol/L BUN 60 H (9-20) mg/dL Creatinine 5.09 H* (0.66-1.25) mg/dL Glucose 110 H (74-99) mg/dL Iron 22 L (65-175) ug/dL Iron Saturation 8.12 L (15.00-50.00) Microbiology - Last 24 Hours (Table) 01/12/18 23:15 Blood Culture - Preliminary Blood No Growth after 48 hours 01/13/18 09:37 Urine Culture - Final Urine,Voided Assessment and Plan Plan: -Acute hypoxic respiratory failure multifactorial patient does appear to have a pneumonia as well as a prescription start failure patient has a pleuritic for pneumonia patient will be started on Rocephin and azithromycin patient is on Lasix dose of which was increased by nephrology, patient underwent hemodialysis today. Will undergo hemanalysis tomorrow again, with improvement in aeration of bilateral lung fish -Chronic kidney disease stage V or end-stage renal failure: Patient is initiated on hemodialysis -Possibility of non-ST elevation microinfarction: Further management as per cardiology -Congestive heart failure possibly of chronic systolic dysfunction with acute exacerbation: IV fluids will be discussed any of any with Lasix -Coronary artery disease with previous stents in the past. -Possibility of interstitial lung disease -Severe pulmonary hypertension secondary pulmonary hypertension Hypertension -Hyperlipidemia
--- NOTE | 2018-01-15 13:43 | P.PN ---
Subjective Progress Note Date: 01/15/18 Principal diagnosis: Congestive heart failure Pulmonary consult dated 01/14/2018 This is a 77-year-old male with a history of chronic kidney disease heart failure and CAD who presents to the emergency department for complaints of chest pressure and shortness of breath. His shortness of breath is been gradual over the last couple of days. In addition, he had intermittent chest pressure. No lower extremity edema noted. The patient has had a bit of cough. Not much. Nonproductive. No fever or chills. Not producing any phlegm to any great extent. No history of underlying COPD. Was a smoker in the past. Chest x-ray and CAT scan and lab data suggest heart failure. There was also a component of possible pulmonary fibrosis on that based on the CAT scan. This will have to be worked up as an outpatient. In addition, there is a history of CAD angina heart failure GI bleed hyperlipidemia hypertension myocardial infarction R deficiency anemia stage IV chronic kidney disease diverticular disease colonic polyp peripheral vascular occlusive disease, etc. The patient states that he feels much better today than he did yesterday when he first came into the emergency department. Progress note dated 01/15/2018 Patient is seen again today on the telemetry unit. He is currently awake and alert in no acute distress. He is receiving hemodialysis today and they're hoping to remove 2 L. His chest x-ray did show improvement changes of congestive heart failure. He is maintaining O2 saturations in the 90s on 4 L/m per nasal cannula. He's been afebrile. Hemodynamically stable. Blood and urine cultures reveal no growth. Sodium 146. BUN 60. Creatinine 5.09. Objective - Vital Signs Vital signs: Vital Signs Temp 98.0 F 01/15/18 11:34 Pulse 80 01/15/18 12:49 Resp 18 01/15/18 11:35 BP 126/61 01/15/18 11:34 Pulse Ox 96 01/15/18 11:34 Intake & Output 01/14/18 01/15/18 01/15/18 18:59 06:59 18:59 Intake Total 905 290 Output Total 250 500 300 Balance 655 -500 -10 Weight 72 kg 72.4 kg Intake: IV 50 Oral 905 240 Output: Urine 250 500 300 Other: Voiding Method Urinal Urinal Urinal # Voids 1 1 - Exam No acute distress, oriented 3. Nasal O2 in place. HEENT examination is grossly unremarkable. Mucous membranes are moist. No oral lesions. Neck supple. Full range of motion. No adenopathy thyromegaly or neck vein distention. Cardiovascular examination reveals regular rhythm rate. S1-S2 normal. No S3 or S4. No discernible murmur noted. Lungs reveal a few scattered rhonchi. Some bibasilar crackles. Breath sounds are equal bilaterally. Abdomen soft bowel sounds are heard. No masses or tenderness. Extremities are intact. No cyanosis clubbing or edema. Skin is without rash or lesion. Neurologic examination is brief but nonfocal. - Labs CBC & Chem 7: 01/14/18 05:27 01/15/18 06:58 Labs: Abnormal Lab Results - Last 24 Hours (Table) 01/14/18 01/15/18 Range/Units 10:58 06:58 Sodium 146 H (137-145) mmol/L BUN 60 H (9-20) mg/dL Creatinine 5.09 H* (0.66-1.25) mg/dL Glucose 110 H (74-99) mg/dL Iron 22 L (65-175) ug/dL Iron Saturation 8.12 L (15.00-50.00) Microbiology - Last 24 Hours (Table) 01/12/18 23:15 Blood Culture - Preliminary Blood No Growth after 48 hours 01/13/18 09:37 Urine Culture - Final Urine,Voided Assessment and Plan Assessment: Assessment Shortness of breath, most likely related to underlying CHF Possible pneumonia though much less likely History of advanced chronic kidney disease Previous history of myocardial infarction History of CAD History of GI bleed Hyperlipidemia Hypertension Peripheral vascular occlusive disease. Ongoing tobacco use and nicotine addiction Possible pulmonary fibrosis Multiple other medical problems and comorbidities. Plan: The patient was seen and evaluated by Dr. Muir. His chest x-ray and labs were reviewed. Patient is currently receiving hemodialysis which should improve his fluid volume overload. We'll continue his current medications for now. We will increase his activity as tolerated. We will continue to follow and make further recommendations based on his clinical status. I, the cosigning physician, performed a history & physical examination of the patient. Lungs sounds with coarse crackles in the bilateral posterior bases. Maintaining good O2 saturations in the 90s on 4 L/m per nasal cannula. I discussed the assessment and plan of care with my nurse practitioner, Eli Bartholomew. I attest to the above note as dictated by her.
[2018-01-15] MEDS: ACETAMINOPHEN TAB 325 MG TAB PO PRN (15:09)
[2018-01-15] MEDS: traMADol 50 MG TAB PO PRN ×2 (15:51→21:16)
[2018-01-15 17:56] LABS: Hepatitis A Antibody IgM Non-Reactive (Non-Reactive); Hepatitis B Core IgM Non-Reactive (Non-Reactive)
[2018-01-16 07:12] LABS: Basophils % (A) 0 %; Eosinophils # (A) 0.4 k/uL (0-0.7); Eosinophils % (A) 5 %; HCT 24.7 % (39.0-53.0); HGB 7.9 gm/dL (13.0-17.5); Lymphocytes # (A) 1.1 k/uL (1.0-4.8); Lymphocytes % (A) 14 %; MCH 27.7 pg (25.0-35.0); MCHC 31.8 g/dL (31.0-37.0); MCV 86.9 fL (80.0-100.0); Mean Platelet Volume 8.5; Monocytes # (A) 0.7 k/uL (0-1.0); Monocytes % (A) 9 %; Neutrophils # (A) 5.7 k/uL (1.3-7.7); Neutrophils % (A) 71 %; Platelet Count 256 k/uL (150-450); RBC 2.84 m/uL (4.30-5.90); RDW 13.2 % (11.5-15.5)
[2018-01-16 07:18] LABS: Potassium 4.8 mmol/L (3.5-5.1)
[2018-01-16] MEDS: IPRATROPIUM-ALBUTEROL 3 ML NEB INHALATION SCH ×4 (07:50→20:14)
[2018-01-16] MEDS: cefTRIAXone IN SWFI 1,000 MG/10 ML SYRINGE IVP SCH (08:45)
[2018-01-16] MEDS: hydrALAZINE HCL 50 MG TAB PO SCH ×3 (08:50→21:26)
[2018-01-16] MEDS: ASPIRIN 81 MG PO SCH (08:50)
[2018-01-16] MEDS: FUROSEMIDE 10 MG/ML 4 ML VIAL IV SCH ×2 (08:50→21:26)
[2018-01-16] MEDS: amLODIPine 10 MG TAB PO SCH (08:50)
[2018-01-16] MEDS: AZITHROMYCIN 500 MG TAB PO SCH (08:50)
--- NOTE | 2018-01-16 11:36 | P.PN ---
Subjective Shortness of breath multifactorial, patient is significant clinical improvement. Patient had episodes of proximal nocturnal dyspnea as today but improved patient is still short of breath is in mild respiratory distress patient will receive paralysis Tomorrow patient will undergo dialysis tomorrow. Patient has can start failure tonic systolic dysfunction ejection fraction of 45% leading to pulmonary edema along with the end-stage renal disease patient will be initiated on hemodialysis along with pulmonary fibrosis and also possibly a competent of pneumonia that are contributing to his symptoms. Patient is being treated for all these. 01/15/2018 Patient had a permanent hemodialysis catheter placement today. Patient received hemodialysis feeling tired because of hemodialysis. Shortness of breath although improved patient had improved radiation the lungs does still have crackles 01/16/2018 Patient is sitting were calluses yesterday, will probably undergo hemodialysis today as well. Patient still has crackles in the lung. Patient is feeling bit better. Constitutional: Denied any fatigue denied any fever. Cardio vascular: denied any chest pain, palpitations Gastrointestinal denied any nausea vomiting Pulmonary: As mentioned in HPI Neurologic denied any new focal deficits Objective - Vital Signs Vital signs: Vital Signs Temp 98.5 F 01/16/18 11:09 Pulse 88 01/16/18 11:31 Resp 18 01/16/18 11:09 BP 123/69 01/16/18 11:09 Pulse Ox 95 01/16/18 11:09 Intake & Output 01/15/18 01/16/18 01/16/18 18:59 06:59 18:59 Intake Total 530 200 240 Output Total 300 100 800 Balance 230 100 -560 Weight 65.1 kg Intake: IV 50 Oral 480 200 240 Output: Urine 300 100 800 Other: Voiding Method Urinal Urinal # Voids 1 - Exam PHYSICAL EXAMINATION: GENERAL: The patient is alert and oriented x3, not in any acute distress. Well developed, well nourished. HEENT: Pupils are round and equally reacting to light. EOMI. No scleral icterus. No conjunctival pallor. Normocephalic, atraumatic. No pharyngeal erythema. No thyromegaly. CARDIOVASCULAR: S1 and S2 present. No murmurs, rubs, or gallops. PULMONARY: Respiratory crackles were appreciated good air entry bilateral lung fish. ABDOMEN: Soft, nontender, nondistended, normoactive bowel sounds. No palpable organomegaly. MUSCULOSKELETAL: No joint swelling or deformity. EXTREMITIES: No cyanosis, clubbing, or pedal edema. NEUROLOGICAL: Gross neurological examination did not reveal any focal deficits. SKIN: No rashes. - Labs CBC & Chem 7: 01/16/18 06:25 01/16/18 06:25 Labs: Abnormal Lab Results - Last 24 Hours (Table) 01/16/18 01/16/18 Range/Units 06:25 06:25 RBC 2.84 L (4.30-5.90) m/uL Hgb 7.9 L (13.0-17.5) gm/dL Hct 24.7 L (39.0-53.0) % BUN 41 H (9-20) mg/dL Creatinine 3.90 H (0.66-1.25) mg/dL Glucose 110 H (74-99) mg/dL Microbiology - Last 24 Hours (Table) 01/12/18 23:15 Blood Culture - Preliminary Blood No Growth after 72 hours Assessment and Plan Plan: -Acute hypoxic respiratory failure multifactorial patient does appear to have a pneumonia as well as a prescription start failure patient has pneumonia patient will be started on Rocephin and azithromycin patient is on Lasix dose of which was increased by nephrology, patient underwent hemodialysis yesterday. Will undergo hemanalysis probably today and tomorrow tomorrow again, with improvement in aeration of bilateral lung fish -Chronic kidney disease stage V or end-stage renal failure: Patient is initiated on hemodialysis -Possibility of non-ST elevation myocardial infarction: Further management as per cardiology -Congestive heart failure possibly of chronic systolic dysfunction with acute exacerbation: IV fluids will be discussed any of any with Lasix -Coronary artery disease with previous stents in the past. -Possibility of interstitial lung disease -Severe pulmonary hypertension secondary pulmonary hypertension Hypertension -Hyperlipidemia
--- NOTE | 2018-01-16 12:31 | P.PN ---
Subjective Progress Note Date: 01/16/18 This is a 77-year-old gentleman admitted to the hospital with respiratory distress. He also has acute on chronic renal failure for which she underwent dialysis yesterday. He was seen and examined this morning, overall he does state that his breathing is improving. Continues to have mild bilateral rales to the bases. Patient's pro calcitonin level came back to be 0.6. Which confirms the patient's diagnosis of pneumonia. Objective - Vital Signs Vital signs: Vital Signs Temp 98.5 F 01/16/18 11:09 Pulse 84 01/16/18 12:00 Resp 18 01/16/18 12:00 BP 123/69 01/16/18 11:09 Pulse Ox 95 01/16/18 11:09 Intake & Output 01/15/18 01/16/18 01/16/18 18:59 06:59 18:59 Intake Total 530 200 240 Output Total 300 100 800 Balance 230 100 -560 Weight 65.1 kg Intake: IV 50 Oral 480 200 240 Output: Urine 300 100 800 Other: Voiding Method Urinal Urinal # Voids 1 - Exam PHYSICAL EXAMINATION: HEENT: Head is atraumatic, normocephalic. Pupils equal, round. Neck is supple. There is no elevated jugular venous pressure. HEART EXAMINATION: Heart S1, S2 normal. No murmur or gallop heard. CHEST EXAMINATION: Lungs reveal fine rales to bilateral bases. ABDOMEN: Soft, nontender. Bowel sounds are heard. No organomegaly noted. EXTREMITIES: 1+ peripheral pulses with evidence of peripheral edema and no calf tenderness noted. NEUROLOGIC patient is awake, alert and oriented -3. . - Labs CBC & Chem 7: 01/16/18 06:25 01/16/18 06:25 Labs: Abnormal Lab Results - Last 24 Hours (Table) 01/16/18 01/16/18 Range/Units 06:25 06:25 RBC 2.84 L (4.30-5.90) m/uL Hgb 7.9 L (13.0-17.5) gm/dL Hct 24.7 L (39.0-53.0) % BUN 41 H (9-20) mg/dL Creatinine 3.90 H (0.66-1.25) mg/dL Glucose 110 H (74-99) mg/dL Microbiology - Last 24 Hours (Table) 01/12/18 23:15 Blood Culture - Preliminary Blood No Growth after 72 hours Assessment and Plan Plan: Assessment and plan #1 respiratory distress, pro-calcitonin 0.6, confirming pneumonia. #2 acute and chronic kidney disease #3 history of coronary artery disease #4 hyperlipidemia # 5 hypertension #6 nicotine dependence Plan Cardiology's perspective, we will follow this patient with you now on an as- needed basis only, please don't hesitate to call with any questions. DNP note has been reviewed, I agree with a documented findings and plan of care. Patient was seen and examined.
--- NOTE | 2018-01-16 13:01 | PN ---
PROGRESS NOTE The patient is seen for followup for CKD start. He had his first treatment of hemodialysis yesterday after placement of PermCath. The patient is currently resting comfortably. He is easily arousable. He denies any complaints. He was seen early this morning. EXAMINATION: Blood pressure was 126/59, heart rate of 79 per minute. Patient is afebrile. Examination of the heart: S1, S2. Examination lungs: Bilateral breath sounds are heard. Abdomen is soft, nontender. Examination lower extremity shows no significant edema. S[employer] exam is grossly intact. LAB: Show sodium 141, potassium 4.8, serum creatinine 3.9, iron saturation 8.1%. ASSESSMENT: 1. Chronic kidney disease stage V, started on renal replacement therapy. Patient will have a 2nd treatment tomorrow. He needs to be set up for outpatient dialysis. 2. Anemia of chronic disease, maintained on Aranesp. The patient noted to have severe iron deficiency. Will start him in iron supplementation. 3. Iron deficiency. Start IV iron. 4. Pneumonia maintained on empiric antibiotics with the possibility of fluid overload as well. 5. Congestive heart failure, fluid overload, currently improved. Continue with the Lasix. We can switch to p.o. Lasix tomorrow. 6. Pyuria with urine culture showing no growth. PLAN: Second treatment of hemodialysis in a.m. and start IV iron and patient will need to be set up for outpatient dialysis. MMODL / AUSTINN: [id number] /
[2018-01-17] MEDS: IPRATROPIUM-ALBUTEROL 3 ML NEB INHALATION SCH ×4 (07:17→20:07)
[2018-01-17 07:51] LABS: HCT 25.4 % (39.0-53.0); HGB 8.1 gm/dL (13.0-17.5); MCH 27.6 pg (25.0-35.0); MCHC 31.8 g/dL (31.0-37.0); MCV 86.8 fL (80.0-100.0); Mean Platelet Volume 8.6; Platelet Count 265 k/uL (150-450); RBC 2.92 m/uL (4.30-5.90); RDW 13.2 % (11.5-15.5); WBC 8.9 k/uL (3.8-10.6)
[2018-01-17 08:12] LABS: Calcium 9.1 mg/dL (8.4-10.2); Potassium 4.4 mmol/L (3.5-5.1)
--- NOTE | 2018-01-17 08:51 | IR ---
EXAMINATION TYPE: IR cvc insert central tunneled DATE OF EXAM: 01/15/2018 COMPARISON: NONE HISTORY: Peripheral vascular occlusive disease. Fluoroscopy was provided to the referring clinician. 1.2 minutes of fluoroscopy provided.
[2018-01-17] MEDS: AZITHROMYCIN 500 MG TAB PO SCH (10:09)
[2018-01-17] MEDS: amLODIPine 10 MG TAB PO SCH (10:09)
[2018-01-17] MEDS: FUROSEMIDE 10 MG/ML 4 ML VIAL IV SCH (10:09)
[2018-01-17] MEDS: ASPIRIN 81 MG PO SCH (10:09)
[2018-01-17] MEDS: hydrALAZINE HCL 50 MG TAB PO SCH ×3 (10:09→22:50)
[2018-01-17] MEDS: cefTRIAXone IN SWFI 1,000 MG/10 ML SYRINGE IVP SCH (10:12)
--- NOTE | 2018-01-17 10:35 | P.PN ---
Subjective Shortness of breath multifactorial, patient is significant clinical improvement. Patient had episodes of proximal nocturnal dyspnea as today but improved patient is still short of breath is in mild respiratory distress patient will receive paralysis Tomorrow patient will undergo dialysis tomorrow. Patient has can start failure tonic systolic dysfunction ejection fraction of 45% leading to pulmonary edema along with the end-stage renal disease patient will be initiated on hemodialysis along with pulmonary fibrosis and also possibly a competent of pneumonia that are contributing to his symptoms. Patient is being treated for all these. 01/15/2018 Patient had a permanent hemodialysis catheter placement today. Patient received hemodialysis feeling tired because of hemodialysis. Shortness of breath although improved patient had improved radiation the lungs does still have crackles 01/16/2018 Patient is sitting were calluses yesterday, will probably undergo hemodialysis today as well. Patient still has crackles in the lung. Patient is feeling bit better. 01/17/2018 Patient is doing much better does have minimal crackles patient 40s apart since saturating well will try to taper down the arms and if you're able to taper down guards and if you're able to set up hemodialysis as an outpatient patient will be discharged today. Constitutional: Denied any fatigue denied any fever. Cardio vascular: denied any chest pain, palpitations Gastrointestinal denied any nausea vomiting Pulmonary: As mentioned in HPI Neurologic denied any new focal deficits Objective - Vital Signs Vital signs: Vital Signs Temp 97.8 F 01/17/18 07:25 Pulse 80 01/17/18 07:29 Resp 16 01/17/18 07:25 BP 151/54 01/17/18 07:25 Pulse Ox 99 01/17/18 07:25 Intake & Output 01/16/18 01/17/18 01/17/18 18:59 06:59 18:59 Intake Total 720 Output Total 800 Balance -80 Weight 66 kg Intake: Oral 720 Output: Urine 800 Other: Voiding Method Urinal # Voids 1 - Exam PHYSICAL EXAMINATION: GENERAL: The patient is alert and oriented x3, not in any acute distress. Well developed, well nourished. HEENT: Pupils are round and equally reacting to light. EOMI. No scleral icterus. No conjunctival pallor. Normocephalic, atraumatic. No pharyngeal erythema. No thyromegaly. CARDIOVASCULAR: S1 and S2 present. No murmurs, rubs, or gallops. PULMONARY: Respiratory crackles were appreciated good air entry bilateral lung fish. ABDOMEN: Soft, nontender, nondistended, normoactive bowel sounds. No palpable organomegaly. MUSCULOSKELETAL: No joint swelling or deformity. EXTREMITIES: No cyanosis, clubbing, or pedal edema. NEUROLOGICAL: Gross neurological examination did not reveal any focal deficits. SKIN: No rashes. - Labs CBC & Chem 7: 01/17/18 07:20 01/17/18 07:20 Labs: Abnormal Lab Results - Last 24 Hours (Table) 01/17/18 01/17/18 Range/Units 07:20 07:20 RBC 2.92 L (4.30-5.90) m/uL Hgb 8.1 L (13.0-17.5) gm/dL Hct 25.4 L (39.0-53.0) % BUN 51 H (9-20) mg/dL Creatinine 4.60 H (0.66-1.25) mg/dL Glucose 147 H (74-99) mg/dL Microbiology - Last 24 Hours (Table) 01/12/18 23:15 Blood Culture - Preliminary Blood No Growth after 96 hours Assessment and Plan Plan: -Acute hypoxic respiratory failure multifactorial patient does appear to have a pneumonia as well as a prescription start failure patient has pneumonia patient will be on Rocephin and azithromycin patient is on Lasix patient will undergo hemodialysis today. We'll get her to solids and patient will be discharged today. -Chronic kidney disease stage V or end-stage renal failure: Patient is initiated on hemodialysis -Possibility of non-ST elevation myocardial infarction: Further management as per cardiology -Congestive heart failure possibly of chronic systolic dysfunction with acute exacerbation: Continue with IV Lasix -Coronary artery disease with previous stents in the past. -Possibility of interstitial lung disease -Severe pulmonary hypertension secondary pulmonary hypertension Hypertension -Hyperlipidemia
[2018-01-17] MEDS: SODIUM FERRIC GLUCONAT-SUCROSE 125 MG in SODIUM CHLORIDE 0.9% 100 ML IVPB SCH (11:11)
[2018-01-17 13:51] VITALS: BMI 22.1
[2018-01-17 16:21] LABS: Basophils % (A) 0 %; Eosinophils # (A) 0.4 k/uL (0-0.7); Eosinophils % (A) 4 %; HCT 23.4 % (39.0-53.0); HGB 7.6 gm/dL (13.0-17.5); Lymphocytes # (A) 0.9 k/uL (1.0-4.8); Lymphocytes % (A) 10 %; MCH 27.9 pg (25.0-35.0); MCHC 32.6 g/dL (31.0-37.0); MCV 85.7 fL (80.0-100.0); Mean Platelet Volume 7.9; Monocytes # (A) 0.7 k/uL (0-1.0); Monocytes % (A) 8 %; Neutrophils # (A) 7.4 k/uL (1.3-7.7); Neutrophils % (A) 77 %; Platelet Count 282 k/uL (150-450); RBC 2.73 m/uL (4.30-5.90); RDW 13.2 % (11.5-15.5); WBC 9.6 k/uL (3.8-10.6)
--- NOTE | 2018-01-17 19:47 | PN ---
PROGRESS NOTE Patient is seen for followup for CKD stage V, started on hemodialysis. The patient states overall he is feeling slightly better. His appetite has slowly improved. This is his 2nd treatment of hemodialysis. He is set up for a Wednesday, , Wednesday schedule at the [facility]. Pt is seen on HD today. PHYSICAL EXAMINATION: Blood pressure is 151/54, heart rate 80 per minute. Examination of the heart: S1 , S2. Examination lungs: Bilateral breath sounds are heard. Abdomen is soft, nontender. Examination lower extremities shows no evidence of edema. SAMPLE CARD MAKER exam is grossly intact. LAB: Show sodium 142, potassium 4.4, serum creatinine 4.6 from today. Hemoglobin was 7.6 g/dL. ASSESSMENT: 1. End-stage renal disease started on hemodialysis this admission. Patient is having a 2nd treatment today. He is seen on dialysis, tolerating his treatment well. 2. Severe iron deficiency maintained on IV iron. 3. Pneumonia, currently on antibiotics. 4. Mild fluid overload on initial admission, currently improved. 5. Coronary artery disease with previous history of coronary stents. 6. Mineral bone disorder. PLAN: Repeat hemodialysis in a.m. Patient can be discharged tomorrow. He will follow up as outpatient with hemodialysis on . The patient is advised to increase his protein intake. MMODL / IJN: [id number] / TOM
[2018-01-18] MEDS: IPRATROPIUM-ALBUTEROL 3 ML NEB INHALATION SCH ×4 (07:03→20:09)
[2018-01-18] MEDS: AZITHROMYCIN 500 MG TAB PO SCH (07:37)
[2018-01-18] MEDS: hydrALAZINE HCL 50 MG TAB PO SCH ×3 (07:37→22:01)
[2018-01-18] MEDS: amLODIPine 10 MG TAB PO SCH (07:38)
[2018-01-18] MEDS: ASPIRIN 81 MG PO SCH (07:38)
[2018-01-18] MEDS: cefTRIAXone IN SWFI 1,000 MG/10 ML SYRINGE IVP SCH (07:44)
[2018-01-18 08:00] LABS: Calcium 9.1 mg/dL (8.4-10.2); Potassium 4.9 mmol/L (3.5-5.1)
[2018-01-18 08:30] LABS: Basophils # (A) 0.1 k/uL (0-0.2); Basophils % (A) 1 %; Eosinophils # (A) 0.4 k/uL (0-0.7); Eosinophils % (A) 5 %; HCT 25.6 % (39.0-53.0); HGB 8.1 gm/dL (13.0-17.5); Lymphocytes # (A) 1.4 k/uL (1.0-4.8); Lymphocytes % (A) 16 %; MCH 27.4 pg (25.0-35.0); MCHC 31.5 g/dL (31.0-37.0); Mean Platelet Volume 8.2; Monocytes # (A) 0.7 k/uL (0-1.0); Monocytes % (A) 9 %; Neutrophils # (A) 5.5 k/uL (1.3-7.7); Neutrophils % (A) 66 %; Platelet Count 279 k/uL (150-450); RBC 2.94 m/uL (4.30-5.90); RDW 13.2 % (11.5-15.5); WBC 8.4 k/uL (3.8-10.6)
[2018-01-18] MEDS: SODIUM FERRIC GLUCONAT-SUCROSE 125 MG in SODIUM CHLORIDE 0.9% 100 ML IVPB SCH (11:23)
[2018-01-18] MEDS: METOPROLOL TARTRATE 25 MG TAB PO SCH ×2 (12:50→22:01)
--- NOTE | 2018-01-18 12:58 | P.PN ---
Subjective Progress Note Date: 01/18/18 Mr. Giraldo is a pleasant 77-year-old male past medical history coronary artery disease with angioplasty of RCA in 2007, chronic systolic heart failure, hypertension, dyslipidemia, chronic kidney disease recently started on hemodialysis and chronic tobacco use. He is admitted to the hospital with hypoxic respiratory failure, pneumonia and acute on chronic renal failure requiring dialysis. His baseline EKG reveals a sinus mechanism with right bundle branch block pattern. Telemetry tracings reveal frequent PVC's at times with short runs of non-sustained ventricular tachycardia. The longest run being around 6 beat runs. He denies symptoms of chest pain, palpitations or dizziness. He continues to complain of ongoing shortness of breath and is requiring oxygen. He underwent dialysis this morning. Laboratory data from prior to dialysis reveals hgb 8.1, plt 279, sodium 142, potassium 4.9, creatinine 3.61. Blood pressure 128/62 heart rate 83 afebrile. Objective - Vital Signs Vital signs: Vital Signs Temp 97.7 F 01/18/18 07:05 Pulse 89 01/18/18 11:01 Resp 16 01/18/18 11:01 BP 128/62 01/18/18 07:05 Pulse Ox 95 01/18/18 10:50 Intake & Output 01/17/18 01/18/18 01/18/18 18:59 06:59 18:59 Intake Total 950 Balance 950 Weight 66 kg 67 kg Intake: Oral 950 Other: Voiding Method Urinal Urinal Urinal # Voids 2 - Exam GENERAL: Well-appearing, well-nourished and in no acute distress. NECK: Supple without JVD or thyromegaly. LUNGS: Rhonchi right lower lobe, left lobe clear to auscultation diminished bilaterally. Respiration equal and unlabored. No wheezes or rales. HEART: Regular rate and rhythm with faint systolic murmur, no rubs or gallops. S1 and S2 heard. EXTREMITIES: Normal range of motion, no edema. No clubbing or cyanosis. Peripheral pulses intact. - Labs CBC & Chem 7: 01/18/18 06:55 01/18/18 06:55 Labs: Abnormal Lab Results - Last 24 Hours (Table) 01/17/18 01/18/18 01/18/18 Range/Units 15:44 06:55 06:55 RBC 2.73 L 2.94 L (4.30-5.90) m/uL Hgb 7.6 L 8.1 L (13.0-17.5) gm/dL Hct 23.4 L 25.6 L (39.0-53.0) % Lymphocytes # 0.9 L (1.0-4.8) k/uL BUN 28 H (9-20) mg/dL Creatinine 3.61 H (0.66-1.25) mg/dL Microbiology - Last 24 Hours (Table) 01/12/18 23:15 Blood Culture - Preliminary Blood No Growth after 120 hours Assessment and Plan Assessment: ASSESSMENT 1. Non-sustained ventricular tachycardia 2. Acute hypoxic respiratory failure 3. Acute on chronic renal failure 4. History of systolic heart failure 5. History of coronary artery disease 6. Hypertension 7. Dyslipidemia 8. Chronic tobacco use PLAN Add metoprolol 25 mg BID and lisinopril 5 mg daily. Discontinue amlodipine secondary to systolic dysfunction. Check magnesium and ionized calcium. Further recommendations to follow. Nurse Practitioner note has been reviewed, I agree with a documented findings and plan of care. Patient was seen and examined.
[2018-01-18 13:03] LABS: Magnesium 2.4 mg/dL (1.6-2.3)
[2018-01-18 13:04] LABS: Ionized Calcium 4.4 mg/dL (4.5-5.3)
--- NOTE | 2018-01-18 17:18 | PN ---
PROGRESS NOTE Patient is seen for followup for end-stage renal disease. He was started on hemodialysis this admission. Patient will be discharged today after hemodialysis. He is on a Wednesday, , Wednesday schedule as outpatient. On examination, blood pressure is 128/62, heart rate 84 per minute. Patient is afebrile. EXAMINATION OF THE HEART: S1, S2. EXAMINATION OF LUNGS: Bilateral breath sounds are heard. ABDOMEN: Soft, non-tender. Examination of lower extremities shows no evidence of edema. FLAKE DRIER exam is grossly intact. Labs show sodium 142, potassium 4.9 today, hemoglobin 8.1 g/dL. ASSESSMENT: 1. End-stage renal disease; started on dialysis this admission. Etiology is nephrosclerosis. 2. Hypertension, controlled. Continue with the MANOJ inhibitors. 3. Uremia, now feeling better, status post 3 treatments of hemodialysis. 4. Pneumonia, maintained on antibiotics. 5. Anemia of chronic disease, currently on Aranesp. 6. Iron deficiency, maintained on IV iron. PLAN: Patient can be discharged and we will follow up as outpatient. He needs to be scheduled for surgery for AV fistula placement with Dr. Shafer. MMODL / IJN: [id number] /
[2018-01-18 19:22] LABS: Glucose,Whole Blood 145 mg/dL (75-99)
--- NOTE | 2018-01-18 22:21 | PN ---
PROGRESS NOTE DATE OF SERVICE: 01/18/2018 This 77-year-old gentleman who was admitted with shortness of breath which is possibly multifactorial also had pneumonia. Patient also has chronic kidney disease. Patient is receiving hemodialysis. No chest pain. No palpitations. No fever. On exam, alert and oriented x3. The pulse is 73, blood pressure 130/60, respiration 20, temperature normal, pulse ox 91% to 96%. HEENT: Conjunctivae normal. Oral mucosa moist. NECK: No jugular venous distention. No carotid bruit. No lymph node enlargement. CARDIOVASCULAR SYSTEM: S1, S2 muffled. RESPIRATORY SYSTEM: Breath sounds diminished at the bases. A few scattered rhonchi and crackles. ABDOMEN: Soft, non-tender. No mass palpable. LEGS: No edema. No swelling. NERVOUS SYSTEM: No focal deficit. LABS AT THIS TIME: WBC 8.4, hemoglobin 8.1, magnesium 2.4. ASSESSMENT: 1. Pneumonia with acute hypoxic respiratory failure. 2. Chronic kidney disease, stage V, on hemodialysis. 3. Congestive heart failure with chronic systolic dysfunction. 4. Coronary artery disease, stent. 5. Interstitial lung disease. 6. History of pulmonary hypertension. 7. Hyperlipidemia. 8. Troponin 0.154, of indeterminate origin. 9. Non-sustained ventricular tachycardia. RECOMMENDATIONS AND DISCUSSION: I recommend to continue current medication, continue symptomatic treatment. Closely follow with Cardiology and Nephrology. Otherwise, increase ambulation. The overall prognosis is guarded because of multiple complex medical issues. Further recommendations to follow. MMODL / IJN: [id number] /
[2018-01-19] MEDS: IPRATROPIUM-ALBUTEROL 3 ML NEB INHALATION SCH ×4 (07:52→20:11)
[2018-01-19 08:08] LABS: Calcium 8.7 mg/dL (8.4-10.2); Potassium 4.5 mmol/L (3.5-5.1)
[2018-01-19] MEDS: METOPROLOL TARTRATE 25 MG TAB PO SCH (08:25)
[2018-01-19] MEDS: LISINOPRIL 5 MG TAB PO SCH ×2 (08:25→08:46)
[2018-01-19] MEDS: hydrALAZINE HCL 50 MG TAB PO SCH ×2 (08:25→08:46)
[2018-01-19] MEDS: AZITHROMYCIN 500 MG TAB PO SCH (08:25)
[2018-01-19] MEDS: ASPIRIN 81 MG PO SCH (08:25)
[2018-01-19] MEDS: cefTRIAXone IN SWFI 1,000 MG/10 ML SYRINGE IVP SCH (08:25)
[2018-01-19] MEDS ORDERED: SODIUM CHLORIDE 0.9% 500 ML IV ONE (10:11)
--- NOTE | 2018-01-19 12:46 | P.PN ---
Subjective Progress Note Date: 01/19/18 Mr. Giraldo is a pleasant 77-year-old male past medical history coronary artery disease with angioplasty of RCA in 2007, chronic systolic heart failure, hypertension, dyslipidemia, chronic kidney disease recently started on hemodialysis and chronic tobacco use. He is admitted to the hospital with hypoxic respiratory failure, pneumonia and acute on chronic renal failure requiring dialysis. His baseline EKG reveals a sinus mechanism with right bundle branch block pattern. Telemetry tracings reveal frequent PVC's at times with short runs of non-sustained ventricular tachycardia. The longest run being around 6 beat runs. He denies symptoms of chest pain, palpitations or dizziness. He continues to complain of ongoing shortness of breath and is requiring oxygen. He underwent dialysis this morning. Laboratory data from prior to dialysis reveals hgb 8.1, plt 279, sodium 142, potassium 4.9, creatinine 3.61. Blood pressure 128/62 heart rate 83 afebrile. 01/19/2018 Mr. Giraldo is seen and examined today resting comfortably in bed receiving a breathing treatment. Telemetry tracings reveal no further non-sustained ventricular tachycardia. Blood pressures have been on the low side with 81/47 this morning. AM lisinopril and hydralazine were held. He also complains of feeling mildly dizzy. He denies chest pain or palpitations. Sodium 137, potassium 4.5, creatinine 2.99, mg 2.4, ionized calcium 4.4. Objective - Vital Signs Vital signs: Vital Signs Temp 97.9 F 01/19/18 07:17 Pulse 71 01/19/18 11:59 Resp 16 01/19/18 07:17 BP 112/59 01/19/18 11:13 Pulse Ox 95 01/19/18 07:52 Intake & Output 01/18/18 01/19/18 01/19/18 18:59 06:59 18:59 Intake Total 125 Output Total 100 Balance 25 Weight 67.5 kg Intake: IV 125 Sodium Ferric Gluconat- 125 Sucrose 125 mg In Sodium Chloride 0.9% 100 ml @ 100 mls/hr IVPB DAILY [facility] Rx#:[id number] Output: Urine 100 Other: Voiding Method Urinal Urinal Urinal # Voids 1 - Exam GENERAL: Well-appearing, well-nourished and in no acute distress. NECK: Supple without JVD or thyromegaly. LUNGS: Clear to auscultation b/l, no rales, rhonchi or wheezes. Diminished bilaterally. Respiration equal and unlabored. HEART: Regular rate and rhythm with faint systolic murmur, no rubs or gallops. S1 and S2 heard. EXTREMITIES: Normal range of motion, no edema. No clubbing or cyanosis. Peripheral pulses intact. - Labs CBC & Chem 7: 01/18/18 06:55 01/19/18 07:38 Labs: Abnormal Lab Results - Last 24 Hours (Table) 01/18/18 01/18/18 01/19/18 Range/Units 12:18 19:17 07:38 Chloride 94 L (98-107) mmol/L BUN 23 H (9-20) mg/dL Creatinine 2.99 H (0.66-1.25) mg/dL POC Glucose (mg/dL) 145 H (75-99) mg/dL Ionized Calcium Cammy 4.4 L (4.5-5.3) mg/dL Magnesium 2.4 H (1.6-2.3) mg/dL Microbiology - Last 24 Hours (Table) 01/12/18 23:15 Blood Culture - Final Blood No Growth after 144 hours Assessment and Plan Assessment: ASSESSMENT 1. Non-sustained ventricular tachycardia 2. Acute hypoxic respiratory failure 3. Acute on chronic renal failure 4. History of systolic heart failure 5. History of coronary artery disease 6. Hypertension 7. Dyslipidemia 8. Chronic tobacco use 9. Hypermagnesemia PLAN Decrease metoprolol to 12.5 mg BID and lisinopril to 2.5 mg daily. Repeat magnesium. Will continue to follow. Nurse Practitioner note has been reviewed, I agree with a documented findings and plan of care. Patient was seen and examined.
--- NOTE | 2018-01-19 13:01 | PN ---
PROGRESS NOTE Patient is seen for followup for end-stage renal disease. This morning, patient is complaining of dizziness and lightheadedness. He stated he tried to sit up to have breakfast and got dizzy. His blood pressure was low in the 80s systolic, last blood pressure was 101/83. Heart rate 71 per minute. Patient is afebrile. EXAMINATION OF THE HEART: S1, S2. EXAMINATION OF THE LUNGS: Bilateral breath sounds are heard. Abdomen is soft, nontender. Examination of the lower extremities shows no evidence of edema. 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 LABS: Labs show sodium 137, potassium 4.5. BUN 23, serum creatinine 2.9. Magnesium 2.4. ASSESSMENT: 1. End-stage renal disease started on dialysis this admission. Patient will be maintained on a Wednesday, , Wednesday schedule. 2. Hypotension secondary to hypovolemia. We will give a fluid bolus of about 500 mL. Continue to hold off on antihypertensive medications. I will discontinue the hydralazine for now. 3. Pneumonia, maintained on antibiotics. 4. Iron deficiency, status post IV iron. PLAN: A 500 mL normal saline bolus x1 now. Discontinue hydralazine and monitor his blood pressure. I will hold off on dialysis today. We will reassess for need for dialysis tomorrow. MMODL / IJN: [id number] /
--- NOTE | 2018-01-19 17:52 | PN ---
PROGRESS NOTE DATE OF SERVICE: 01/19/2018 This 77-year-old gentleman with a past medical history of multiple medical problems was admitted with pneumonia and acute hypoxic respiratory failure. The patient is improving significantly. This morning the patient was having hypotension with blood pressure in the 80s systolic and responded to fluid boluses. No chest pain. No palpitations. No fever. EXAM: Alert and oriented x3. Pulse 78, blood pressure 99/55, respirations 16, temperature 97.2, pulse ox 94% on 1 L. HEENT: Conjunctivae normal. NECK: No jugular venous distention. CARDIOVASCULAR: S1, S2. RESPIRATORY: Breath sounds diminished in the bases. A few scattered rhonchi and crackles. ABDOMEN: Soft, nontender. LEGS: No edema. NERVOUS SYSTEM: No focal deficits. LAB: Creatinine is 2.9. Other labs are noted. ASSESSMENT: 1. Pneumonia with acute hypoxic respiratory failure. 2. Chronic kidney disease stage V, on hemodialysis. 3. Congestive heart failure with chronic systolic dysfunction. 4. Coronary artery disease, stent. 5. Interstitial lung disease. 6. History of pulmonary hypertension. 7. Hyperlipidemia. 8. Troponin 0.15 indeterminate. RECOMMENDATIONS AND DISCUSSION: I recommend to continue current management and symptomatic treatment. Otherwise continue rest of the medications. Continue to monitor blood pressure closely. PT/OT evaluation, possible ECF rehab if agreeable to the patient. Otherwise closely monitor. Guarded prognosis because of multiple complex medical issues. Further recommendations to follow. MMFANNIEL / AUSTINN: [id number] /
[2018-01-19] MEDS ORDERED: ONDANSETRON 4 MG/2 ML VIAL IVP PRN (17:54)
[2018-01-19] MEDS: METOPROLOL TARTRATE 12.5 MG TAB PO SCH (20:33)
[2018-01-20] MEDS: IPRATROPIUM-ALBUTEROL 3 ML NEB INHALATION SCH ×2 (07:51→11:45)
[2018-01-20 08:08] VITALS: BP 124/60; RESP 18; TEMP 97.9
[2018-01-20] MEDS: METOPROLOL TARTRATE 12.5 MG TAB PO SCH (08:37)
[2018-01-20] MEDS: AZITHROMYCIN 500 MG TAB PO SCH (08:37)
[2018-01-20] MEDS: ASPIRIN 81 MG PO SCH (08:37)
[2018-01-20] MEDS: cefTRIAXone IN SWFI 1,000 MG/10 ML SYRINGE IVP SCH (08:40)
[2018-01-20] MEDS ORDERED: LISINOPRIL 2.5 MG TAB PO SCH (09:00)
--- NOTE | 2018-01-20 09:45 | P.PN ---
Subjective Mr. Giraldo is a pleasant 77-year-old male past medical history coronary artery disease with angioplasty of RCA in 2007, chronic systolic heart failure, hypertension, dyslipidemia, chronic kidney disease recently started on hemodialysis and chronic tobacco use. He is admitted to the hospital with hypoxic respiratory failure, pneumonia and acute on chronic renal failure requiring dialysis. His baseline EKG reveals a sinus mechanism with right bundle branch block pattern. Telemetry tracings reveal frequent PVC's at times with short runs of non-sustained ventricular tachycardia. The longest run being around 6 beat runs. He denies symptoms of chest pain, palpitations or dizziness. He continues to complain of ongoing shortness of breath and is requiring oxygen. He underwent dialysis this morning. Laboratory data from prior to dialysis reveals hgb 8.1, plt 279, sodium 142, potassium 4.9, creatinine 3.61. Blood pressure 128/62 heart rate 83 afebrile. 01/19/2018 Mr. Giraldo is seen and examined today resting comfortably in bed receiving a breathing treatment. Telemetry tracings reveal no further non-sustained ventricular tachycardia. Blood pressures have been on the low side with 81/47 this morning. AM lisinopril and hydralazine were held. He also complains of feeling mildly dizzy. He denies chest pain or palpitations. Sodium 137, potassium 4.5, creatinine 2.99, mg 2.4, ionized calcium 4.4. 01/20/2018 Seen and examined this morning resting comfortably in bed. He looks much better today, breathing is easier. Blood pressure 124/60 heart rate 69 and telemetry tracings have been unremarkable, no further non-sustained ventricular tachycardia. He denies symptoms of chest pain, palpitations, dizziness or shortness of breath. Magnesium 2.6 today. Objective - Vital Signs Vital signs: Vital Signs Temp 97.9 F 01/20/18 07:20 Pulse 72 01/20/18 08:01 Resp 18 01/20/18 07:20 BP 124/60 01/20/18 07:20 Pulse Ox 95 01/20/18 07:54 Intake & Output 01/19/18 01/20/18 01/20/18 18:59 06:59 18:59 Intake Total 500 200 Balance 500 200 Weight 68 kg Intake: Intake, IV Titration 500 Amount Sodium Chloride 0.9% 500 500 ml @ 999 mls/hr IV .Q31M ONE Rx#:[id number] Oral 200 Other: Voiding Method Urinal Urinal # Voids 0 # Bowel Movements 1 - Exam GENERAL: Well-appearing, well-nourished and in no acute distress. NECK: Supple without JVD or thyromegaly. LUNGS: Clear to auscultation b/l, no rales, rhonchi or wheezes. Diminished bilaterally. Respiration equal and unlabored. HEART: Regular rate and rhythm with faint systolic murmur, no rubs or gallops. S1 and S2 heard. EXTREMITIES: Normal range of motion, no edema. No clubbing or cyanosis. Peripheral pulses intact. - Labs CBC & Chem 7: 01/18/18 06:55 01/19/18 07:38 Labs: Abnormal Lab Results - Last 24 Hours (Table) 01/20/18 Range/Units 06:22 Magnesium 2.6 H (1.6-2.3) mg/dL Assessment and Plan Assessment: ASSESSMENT 1. Non-sustained ventricular tachycardia 2. Acute hypoxic respiratory failure 3. Acute on chronic renal failure 4. History of systolic heart failure 5. History of coronary artery disease 6. Hypertension 7. Dyslipidemia 8. Chronic tobacco use 9. Hypermagnesemia PLAN Continue with current medical therapy. Prescriptions will be send for metoprolol 125.5 mg BID and lisinopril 2.5 mg daily. Follow-up with Dr. Paniagua in 2-3 weeks. Nurse Practitioner note has been reviewed, I agree with a documented findings and plan of care. Patient was seen and examined.
[2018-01-20 11:55] VITALS: PULSE 72
--- NOTE | 2018-01-20 13:44 | PN ---
PROGRESS NOTE Patient is seen for followup for end-stage renal disease. He is supposed to be discharged today. PHYSICAL EXAMINATION: On examination, blood pressure was 124/60 this morning, heart rate 76 per minute. He is afebrile. EXAMINATION OF THE HEART: S1, S2. EXAMINATION OF THE LUNGS: Bilateral breath sounds are heard. Abdomen is soft, nontender. Examination of lower extremities shows no evidence of edema. Skin exam is grossly intact. LABS: Labs show a serum creatinine 2.9, sodium 137, potassium 4.5. ASSESSMENT: 1. End-stage renal disease started on hemodialysis this admission via a right IJ PermCath. The patient will be rescheduled for his AV fistula surgery as outpatient. 2. Hypotension, improved after IV fluid bolus yesterday. 3. Pneumonia, currently on antibiotics. 4. Hypertension. Blood pressure was low. 5. Anemia of chronic disease. PLAN: Patient can be discharged. He will have his outpatient treatment for hemodialysis today and will be maintained on a Wednesday, , Wednesday schedule. He needs to be set up as outpatient for AV fistula surgery. MMODL / IJN: [id number] /
--- NOTE | 2018-01-21 06:15 | DS ---
DISCHARGE SUMMARY DATE OF SERVICE: 01/20/2018. FINAL DIAGNOSES: 1. Pneumonia with acute hypoxic respiratory failure. 2. Chronic kidney disease stage 5 on hemodialysis. 3. Congestive heart failure with chronic systolic dysfunction. 4. Coronary artery disease, stent. DISCHARGE DISPOSITION: The patient will be discharged in stable condition with guarded prognosis. HISTORY OF PRESENT ILLNESS: This 77-year-old gentleman with a past medical history of multiple medical problems admitted with pneumonia. The patient was treated with antibiotics. The patient improved significantly. The possibility of ECF rehab was suggested, but at this time patient would like to go home. On exam, vitals are stable. CARDIOVASCULAR: S1 and S2 muffled. ABDOMEN: Soft. NERVOUS SYSTEM: No focal deficits. DISCHARGE ADVICE: 1. Diet is cardiac. 2. Activity limited until followup. 3. Follow up with Dr. Bowen in 2 to 3 days. 4. Follow up with Cardiology and Dr. Hood as recommended. MEDICATIONS: 1. Tylenol 650 q.4 p.r.n. 2. Aspirin 81 mg p.o. daily. 3. Zithromax 500 mg p.o. daily. 4. Ceftin 500 mg p.o. bid for 5 days. 5. Fish oil 1 p.o. . 6. Garlic 1 p.o. daily. 7. DuoNeb q.i.d. and p.r.n. 8. Zestril 2.5 mg daily, hold if systolic blood pressure less than 100. 9. Lopressor 12.5 mg p.o. b.i.d., hold for systolic less than 120. Once again, the patient will be discharged in stable condition with guarded prognosis. MMODL / IJN: [id number] / MTDD
== END 2018-01-20 12:20 | disposition home or self-care (01) | DRG 193 ==
LOC: EC 23:03 → 6SEL 01-13 00:27 → 5MS5E 01-16 18:08 → 5ONC 01-17 09:46
PROVIDERS: ADMIT Internal Medicine; ATTEND Internal Medicine
PROC: 5A1D70Z Performance of Urinary Filtration, Intermittent, Less than 6 Hours Per Day (ICD-10-PCS; principal; 2018-01-15 08:55)
PROC: 02HV33Z Insertion of Infusion Device into Superior Vena Cava, Percutaneous Approach (ICD-10-PCS; 2018-01-15 08:55)
DX: J18.9 Pneumonia, unspecified organism (principal); J96.01 Acute respiratory failure with hypoxia; N18.6 End stage renal disease; I50.23 Acute on chronic systolic (congestive) heart failure; I13.2 Hypertensive heart and chronic kidney disease with heart failure and with stage 5 chronic kidney disease, or end stage renal disease; I47.2 Ventricular tachycardia; N17.9 Acute kidney failure, unspecified; N39.0 Urinary tract infection, site not specified; D63.8 Anemia in other chronic diseases classified elsewhere; E78.5 Hyperlipidemia, unspecified; E83.41 Hypermagnesemia; E86.1 Hypovolemia; F17.200 Nicotine dependence, unspecified, uncomplicated; I25.10 Atherosclerotic heart disease of native coronary artery without angina pectoris; I25.2 Old myocardial infarction; I27.29 Other secondary pulmonary hypertension; I45.10 Unspecified right bundle-branch block; I70.203 Unspecified atherosclerosis of native arteries of extremities, bilateral legs; J84.10 Pulmonary fibrosis, unspecified; M89.9 Disorder of bone, unspecified; Z79.82 Long term (current) use of aspirin; Z79.899 Other long term (current) drug therapy; Z82.49 Family history of ischemic heart disease and other diseases of the circulatory system; Z86.010 Personal history of colon polyps; Z95.5 Presence of coronary angioplasty implant and graft; Z96.1 Presence of intraocular lens; Z98.41 Cataract extraction status, right eye; Z98.42 Cataract extraction status, left eye; Z99.2 Dependence on renal dialysis
CPT/HCPCS: 36415; 36558; 36600; 71045; 71250; 76937; 77001; 80048; 80053; 80074; 81001; 82330; 82550; 82553; 82805; 83540; 83550; 83605; 83735; 83880; 84145; 84484; 85025; 85027; 85610; 85730; 86850; 86900; 86901; 87040; 87086; 87502; 90935; 93005; 93306; 94640; 94760; 96361; 96365; 96375; 99285

== ENCOUNTER → 2018-10-26 | Outpatient (CLI) | payer MEDICARE ==
--- NOTE | 2018-10-26 15:23 | XR ---
EXAMINATION TYPE: XR chest 2V DATE OF EXAM: 10/26/2018 COMPARISON: Prior chest x-ray 01/15/2018 HISTORY: Cough TECHNIQUE: Frontal and lateral views of the chest are obtained. FINDINGS: There is no focal air space opacity, pleural effusion, or pneumothorax seen. The cardiac silhouette size is within normal limits. The osseous structures are intact. Interval removal of the right jugular central venous catheter. Prominent lung volumes suggests underlying COPD. There is bro nchial wall thickening. IMPRESSION: Correlate for bronchitis, follow-up as indicated.
== END | disposition home or self-care (01) ==
LOC: RADXRMAIN 14:48
PROVIDERS: ATTEND Physician Assistant
DX: R05 Cough (principal)
CPT/HCPCS: 71046

== ENCOUNTER → 2018-11-10 | Outpatient (CLI) | payer MEDICARE ==
--- NOTE | 2018-11-10 15:25 | XR ---
EXAMINATION TYPE: XR chest 2V DATE OF EXAM: 11/10/2018 COMPARISON: Prior chest x-ray 10/26/2018 HISTORY: Pneumonia and productive cough TECHNIQUE: Frontal and lateral views of the chest are obtained. FINDINGS: There is no focal air space opacity, pleural effusion, or pneumothorax seen. The cardiac silhouette size is within normal limits. The osseous structures are intact. Aorta is dense. IMPRESSION: No acute cardiopulmonary process.
== END | disposition home or self-care (01) ==
LOC: RADXRMAIN 13:34
PROVIDERS: ATTEND Midwife
DX: R05 Cough (principal)
CPT/HCPCS: 71046

== ENCOUNTER 2019-02-27 12:27 | Observation (INO) | payer MEDICARE ==
--- NOTE | 2019-02-27 12:51 | ED ---
Recheck HPI - General Chief Complaint: Recheck/Abnormal Lab/Rx Stated Complaint: needs dialysis Time Seen by Provider: 02/27/19 12:50 Source: patient, RN notes reviewed, old records reviewed Mode of arrival: ambulatory Limitations: no limitations - History of Present Illness Initial Comments: This is a 70-year-old male the ER for evaluation. Patient's presents today for evaluation regarding missing dialysis for one week. Patient is asymptomatic and has no complaints, no weakness no nausea vomiting diarrhea or fevers. Patient's he'll dialysis facility did not feel like going. MD Complaint: abnormal lab (Patient is missed dialysis times one week likely abnormal lab values noted) -: week(s) Returns Today for: Called Because of Abnormal Lab/Test, other (This is a dialysi s times one week) Symptoms Since Prior Visit: no new symptoms Associated Symptoms: none - Related Data Home Medications Medication Instructions Recorded Confirmed Fish Oil/Dha/Epa [Fish Oil 1,200 1 cap PO BID 11/18/16 02/27/19 mg Fish Oil] Atorvastatin [Lipitor] 40 mg PO DAILY 02/27/19 02/27/19 Calcium Acetate [Phoslo] 667 mg PO BID 02/27/19 02/27/19 Metoprolol Tartrate [Lopressor] 25 mg PO BID 02/27/19 02/27/19 Awilda-Fred 0.8mg 0.8 mg PO DAILY 02/27/19 02/27/19 amLODIPine [Norvasc] 10 mg PO DAILY 02/27/19 02/27/19 hydrALAZINE HCL [Apresoline] 50 mg PO BID 02/27/19 02/27/19 Previous Rx's Medication Instructions Recorded Aspirin 81 mg PO DAILY #30 chew 11/21/16 Ipratropium-Albuterol Nebulize 3 ml INHALATION RT-QID #120 01/20/18 [Duoneb 0.5 mg-3 mg/3 ml Soln] ampul.neb Lisinopril [Zestril] 2.5 mg PO DAILY #30 tab 01/20/18 Allergies Allergy/AdvReac Type Severity Reaction Status Date / Time No Known Allergies Allergy Verified 02/27/19 13:49 Review of Systems ROS Statement: Those systems with pertinent positive or pertinent negative responses have been documented in the HPI. ROS Other: All systems not noted in ROS Statement are negative. Past Medical History Past Medical History: Coronary Artery Disease (CAD), Chest Pain / Angina, Heart Failure, GI Bleed, Hyperlipidemia, Hypertension, Myocardial Infarction ([place]), Pneumonia, Renal Disease, Vascular Disorder Additional Past Medical History / Comment(s): [place] 2013, lower GI bleed, anemia, iron deficiency anemia, chronic kidney dx stage IV, diverticulosis, colon polyp (removed), PVD-pt needs bilateral leg bypass surgery but cannot have surgery unless he quits. smoking, neck fx as a young person with seizures following last one years ago. Last Myocardial Infarction Date:: 2013 History of Any Multi-Drug Resistant Organisms: None Reported Past Surgical History: Heart Catheterization With Stent Additional Past Surgical History / Comment(s): ccath with stents in 2007, 11/19/14 EGD with bx and Colonoscopy with polypectomy, bilateral cataract removal with lens implants. Past Anesthesia/Blood Transfusion Reactions: No Reported Reaction Date of Last Stent Placement:: 2007 Past Psychological History: No Psychological Hx Reported Smoking Status: Current every day smoker Past Alcohol Use History: None Reported Past Drug Use History: None Reported - Past Family History Father Family Medical History: Myocardial Infarction ([place]) Additional Family Medical History / Comment(s): Father at age 59 of a [place] Mother Family Medical History: CVA/TIA Additional Family Medical History / Comment(s): Mother of a brain hemorrage. General Exam Limitations: no limitations General appearance: alert, in no apparent distress Head exam: Present: atraumatic, normocephalic, normal inspection Eye exam: Present: normal appearance, PERRL, EOMI. Absent: scleral icterus, conjunctival injection, periorbital swelling ENT exam: Present: normal exam, mucous membranes moist Neck exam: Present: normal inspection. Absent: tenderness, meningismus, lymphadenopathy Respiratory exam: Present: normal lung sounds bilaterally. Absent: respiratory distress, wheezes, rales, rhonchi, stridor Cardiovascular Exam: Present: regular rate, normal rhythm, normal heart sounds. Absent: systolic murmur, diastolic murmur, rubs, gallop, clicks GI/Abdominal exam: Present: soft, normal bowel sounds. Absent: distended, tenderness, guarding, rebound, rigid Extremities exam: Present: normal inspection, full ROM, normal capillary refill. Absent: tenderness, pedal edema, joint swelling, calf tenderness Back exam: Present: normal inspection Neurological exam: Present: alert, oriented X3, CN II-XII intact Psychiatric exam: Present: normal affect, normal mood Skin exam: Present: warm, dry, intact, normal color. Absent: rash Course Vital Signs 02/27/19 12:35 Temperature 97.6 F Pulse Rate 69 Respiratory 18 Rate Blood Pressure 176/92 O2 Sat by Pulse 100 Oximetry Medical Decision Making - Medical Decision Making 78 male the ER for evaluation of multiple missed dialysis events. Patient's hyperkalemia 6.9 potassium is no EKG changes. Patient be admitted to be dialyzed and treatment potassium - Lab Data Result diagrams: 02/27/19 13:12 02/27/19 13:12 Lab Results 02/27/19 02/27/19 02/27/19 Range/Units 13:12 13:12 13:12 WBC 9.5 (3.8-10.6) k/uL RBC 4.09 L (4.30-5.90) m/uL Hgb 12.6 L (13.0-17.5) gm/dL Hct 39.5 (39.0-53.0) % MCV 96.7 (80.0-100.0) fL MCH 30.9 (25.0-35.0) pg MCHC 31.9 (31.0-37.0) g/dL RDW 14.0 (11.5-15.5) % Plt Count 175 (150-450) k/uL Neutrophils % 65 % Lymphocytes % 24 % Monocytes % 4 % Eosinophils % 4 % Basophils % 1 % Neutrophils # 6.1 (1.3-7.7) k/uL Lymphocytes # 2.3 (1.0-4.8) k/uL Monocytes # 0.4 (0-1.0) k/uL Eosinophils # 0.4 (0-0.7) k/uL Basophils # 0.1 (0-0.2) k/uL PT 10.3 (9.0-12.0) sec INR 1.0 (<1.2) APTT 24.1 (22.0-30.0) sec Sodium 144 (137-145) mmol/L Potassium 6.9 H* (3.5-5.1) mmol/L Chloride 114 H (98-107) mmol/L Carbon Dioxide 17 L (22-30) mmol/L Anion Gap 13 mmol/L BUN 73 H (9-20) mg/dL Creatinine 9.79 H* (0.66-1.25) mg/dL Est GFR (CKD-EPI)AfAm 5 (>60 ml/min/1.73 sqM) Est GFR (CKD-EPI)NonAf 5 (>60 ml/min/1.73 sqM) Glucose 104 H (74-99) mg/dL Calcium 7.8 L (8.4-10.2) mg/dL Phosphorus 8.0 H (2.5-4.5) mg/dL Magnesium 2.1 (1.6-2.3) mg/dL Total Bilirubin 0.4 (0.2-1.3) mg/dL AST 14 L (17-59) U/L ALT 18 L (21-72) U/L Alkaline Phosphatase 68 (38-126) U/L Total Protein 7.2 (6.3-8.2) g/dL Albumin 4.6 (3.5-5.0) g/dL Disposition Clinical Impression: Acute renal failure, CKD (chronic kidney disease), Hyperkalemia Disposition: ADMITTED IP TO THIS HOSP Condition: Fair Is patient prescribed a controlled substance at d/c from ED?: No Referrals: Edward Bowen MD [Primary Care Provider] - 1-2 days
[2019-02-27 13:26] LABS: Basophils # (A) 0.1 k/uL (0-0.2); Basophils % (A) 1 %; Eosinophils # (A) 0.4 k/uL (0-0.7); Eosinophils % (A) 4 %; HCT 39.5 % (39.0-53.0); HGB 12.6 gm/dL (13.0-17.5); Lymphocytes # (A) 2.3 k/uL (1.0-4.8); Lymphocytes % (A) 24 %; MCH 30.9 pg (25.0-35.0); MCHC 31.9 g/dL (31.0-37.0); MCV 96.7 fL (80.0-100.0); Mean Platelet Volume 9.2; Monocytes # (A) 0.4 k/uL (0-1.0); Monocytes % (A) 4 %; Neutrophils # (A) 6.1 k/uL (1.3-7.7); Neutrophils % (A) 65 %; Platelet Count 175 k/uL (150-450); RBC 4.09 m/uL (4.30-5.90); WBC 9.5 k/uL (3.8-10.6)
[2019-02-27 13:37] LABS: Albumin 4.6 g/dL (3.5-5.0); Calcium 7.8 mg/dL (8.4-10.2); Magnesium 2.1 mg/dL (1.6-2.3); Total Bilirubin 0.4 mg/dL (0.2-1.3); Total Protein 7.2 g/dL (6.3-8.2)
[2019-02-27 13:48] LABS: Potassium 6.9 mmol/L (3.5-5.1)
[2019-02-27 13:51] LABS: Partial Thromboplastin Time 24.1 sec (22.0-30.0); Prothrombin Time 10.3 sec (9.0-12.0)
[2019-02-27] MEDS ORDERED: SODIUM POLYSTYRENE SULFONATE 15 GM/60 ML BOTTLE PO STA (14:07)
[2019-02-27] MEDS ORDERED: SODIUM BICARB 8.4% 50 ML SYR (1 MEQ/ML) IV STA (14:07)
[2019-02-27] MEDS ORDERED: INSULIN REGULAR 100 UNIT/ML VIAL IV ONE (14:07)
[2019-02-27] MEDS ORDERED: DEXTROSE 50% SYRINGE 50 ML IVP STA (14:07)
[2019-02-27] MEDS ORDERED: SODIUM CHLORIDE 0.9% 1,000 ML IV ONE (14:11)
[2019-02-27] MEDS ORDERED: LABETALOL SYRINGE 5 MG/ML IVP STA (15:31)
[2019-02-27] MEDS ORDERED: CALCIUM GLUCONATE 1 GM in SODIUM CHLORIDE 0.9% 100 ML IVPB ONE (15:41)
[2019-02-27] MEDS ORDERED: ONDANSETRON 4 MG/2 ML VIAL IVP PRN (18:16)
[2019-02-27] MEDS: IPRATROPIUM-ALBUTEROL 3 ML NEB INHALATION SCH (19:58)
[2019-02-27] MEDS: METOPROLOL TARTRATE 25 MG TAB PO SCH (20:13)
[2019-02-27] MEDS: hydrALAZINE HCL 50 MG TAB PO SCH (20:13)
[2019-02-28] MEDS: IPRATROPIUM-ALBUTEROL 3 ML NEB INHALATION SCH ×2 (07:11→13:11)
[2019-02-28] MEDS ORDERED: ATORVASTATIN 40 MG TAB PO SCH (09:00)
[2019-02-28] MEDS ORDERED: ENOXAPARIN 40 MG/0.4 ML SYRINGE SQ SCH (09:00)
[2019-02-28] MEDS ORDERED: ASPIRIN 81 MG PO SCH (09:00)
[2019-02-28] MEDS ORDERED: amLODIPine 10 MG TAB PO SCH (09:00)
[2019-02-28] MEDS ORDERED: RENA VITE PO SCH (09:00)
[2019-02-28] MEDS: hydrALAZINE HCL 50 MG TAB PO SCH (09:01)
[2019-02-28] MEDS: METOPROLOL TARTRATE 25 MG TAB PO SCH (09:01)
--- NOTE | 2019-02-28 10:39 | P.HPIM ---
History of Present Illness 78-year-old who is on edema dialysis stated that he didn't feel like coming in to have his dialysis done. After discussion with family patient was sent to the emergency room for dialysis in the hospital. Patient's potassium 6.9 was treated creatinine 9.79 be in a 73. Patient has a history of coronary disease with [place] and stents history of congestive heart failure hypertension hyperlipidemia and vascular disease Review of Systems Constitutional: Reports fatigue Past Medical History Past Medical History: Coronary Artery Disease (CAD), Chest Pain / Angina, Heart Failure, GI Bleed, Hyperlipidemia, Hypertension, Myocardial Infarction ([place]), Pneumonia, Renal Disease, Vascular Disorder Additional Past Medical History / Comment(s): [place] 2013, lower GI bleed, anemia, iron deficiency anemia, chronic kidney dx stage IV with dialysis TU/Thur/Sat- last hemo about 1 week ago, diverticulosis, colon polyp (removed), PVD-pt needs bilateral leg bypass surgery but cannot have surgery unless he quits. smoking, neck fx as a young person with seizures following last one years ago. Last Myocardial Infarction Date:: 2013 History of Any Multi-Drug Resistant Organisms: None Reported Past Surgical History: Heart Catheterization With Stent Additional Past Surgical History / Comment(s): ccath with stents in 2007, 11/19/14 EGD with bx and Colonoscopy with polypectomy, bilateral cataract removal with lens implants, shunt L arm. Past Anesthesia/Blood Transfusion Reactions: No Reported Reaction Date of Last Stent Placement:: 2007 Smoking Status: Current every day smoker - Past Family History Father Family Medical History: Myocardial Infarction ([place]) Additional Family Medical History / Comment(s): Father at age 59 of a [place] Mother Family Medical History: CVA/TIA Additional Family Medical History / Comment(s): Mother of a brain hemorrage. Medications and Allergies Home Medications Medication Instructions Recorded Confirmed Type Fish Oil/Dha/Epa [Fish Oil 1,200 1 cap PO BID 11/18/16 02/27/19 History mg Fish Oil] Aspirin 81 mg PO DAILY #30 chew 11/21/16 02/27/19 Rx Ipratropium-Albuterol Nebulize 3 ml INHALATION RT-QID #120 01/20/18 02/27/19 Rx [Duoneb 0.5 mg-3 mg/3 ml Soln] ampul.neb Lisinopril [Zestril] 2.5 mg PO DAILY #30 tab 01/20/18 02/27/19 Rx Atorvastatin [Lipitor] 40 mg PO DAILY 02/27/19 02/27/19 History Calcium Acetate [Phoslo] 667 mg PO BID 02/27/19 02/27/19 History Metoprolol Tartrate [Lopressor] 25 mg PO BID 02/27/19 02/27/19 History Awilda-Fred 0.8mg 0.8 mg PO DAILY 02/27/19 02/27/19 History amLODIPine [Norvasc] 10 mg PO DAILY 02/27/19 02/27/19 History hydrALAZINE HCL [Apresoline] 50 mg PO BID 02/27/19 02/27/19 History Allergies Allergy/AdvReac Type Severity Reaction Status Date / Time No Known Allergies Allergy Verified 02/27/19 13:49 Physical Exam Vitals: Vital Signs Temp Pulse Pulse Resp BP BP Pulse Ox 02/28/19 08:00 97.6 F 75 16 150/64 97 02/28/19 07:23 80 02/28/19 07:14 72 96 02/28/19 04:00 97.4 F L 74 18 112/53 96 02/28/19 03:42 18 02/28/19 00:00 98.2 F 71 18 170/52 95 02/27/19 23:46 18 02/27/19 20:00 18 02/27/19 19:49 97.8 F 88 18 146/79 02/27/19 19:19 98.3 F 82 18 146/79 97 02/27/19 16:00 97.8 F 63 18 175/75 99 02/27/19 15:44 184/82 02/27/19 15:08 97.7 F 73 18 208/82 98 02/27/19 14:36 72 18 205/97 98 02/27/19 12:35 97.6 F 69 18 176/92 100 Intake and Output 02/27/19 02/28/19 02/28/19 22:59 06:59 14:59 Intake Total 240 Output Total 1200 200 Balance -960 -200 Intake: Oral 240 Output: Urine 200 Stool 0 Hemodialysis 1200 Other: Voiding Method Urinal - Constitutional General appearance: obese - EENT Eyes: PERRLA Ears: bilateral: normal - Neck Neck: normal ROM - Respiratory Respiratory: bilateral: CTA - Cardiovascular Rhythm: regular - Gastrointestinal General gastrointestinal: soft - Integumentary Integumentary: normal - Neurologic Neurologic: CNII-XII intact - Musculoskeletal Musculoskeletal: generalized weakness Results CBC & Chem 7: 02/27/19 13:12 02/27/19 13:12 Labs: Abnormal Lab Results - Last 24 Hours (Table) 02/27/19 02/27/19 Range/Units 13:12 13:12 RBC 4.09 L (4.30-5.90) m/uL Hgb 12.6 L (13.0-17.5) gm/dL Potassium 6.9 H* (3.5-5.1) mmol/L Chloride 114 H (98-107) mmol/L Carbon Dioxide 17 L (22-30) mmol/L BUN 73 H (9-20) mg/dL Creatinine 9.79 H* (0.66-1.25) mg/dL Glucose 104 H (74-99) mg/dL Calcium 7.8 L (8.4-10.2) mg/dL Phosphorus 8.0 H (2.5-4.5) mg/dL AST 14 L (17-59) U/L ALT 18 L (21-72) U/L Thrombosis Risk Factor Assmnt - Choose All That Apply Any of the Below Risk Factors Present?: No Other Risk Factors: No Other congenital or acquired thrombophilia - If yes, enter type in comment: No Thrombosis Risk Factor Assessment Level: Very Low Risk Assessment and Plan Plan: Assessment Acute on chronic renal failure end-stage on dialysis stage IV Hyperkalemia Noncompliance with dialysis History of coronary disease with [place] and stents Congestive heart failure stable Hypertension hyperlipidemia Vascular disease Plan Consult with Hemodialysis ordered Discharge home when cleared by nephrology
[2019-02-28 12:36] VITALS: RESP 18
--- NOTE | 2019-02-28 12:45 | P.NPCON ---
History of Present Illness - Reason for Consult end stage renal disease - History of Present Illness Reason for consultation: End-stage renal disease History of present illness: Patient is a 78-year-old male seen in renal consultation for end-stage renal disease. Patient is seen in the observation unit. He is maintained on hemodialysis on a Wednesday schedule. Patient has a left upper extremity AV fistula. Patient missed over 1 week of hemodialysis treatments as he simply did not feel like going for hemodialysis. Patient states he has thought of stopping hemodialysis altogether but his daughter wants him to continue. Patient's potassium level was 6.9 yesterday. He underwent emergent hemodialysis last night. He is seen while undergoing hemodialysis today. Denies chest pain or shortness of breath. No vomiting or diarrhea. Hemodynamically stable. No fever or chills. Appetite is fair. No edema. Vital signs are stable. General: The patient appeared well nourished and normally developed. HEENT: Head exam is unremarkable. Neck is without jugular venous distension. LUNGS: Lungs are clear to auscultation and percussion. Breath sounds decreased. HEART: Rate and Rhythm are regular. First and second heart sounds normal. No murmurs, rubs or gallops. ABDOMEN: Abdominal exam reveals normal bowel sounds. Non-tender and non- distended. No evidence of peritonitis. EXTREMITITES: No clubbing, cyanosis, or edema. Past Medical History Past Medical History: Coronary Artery Disease (CAD), Chest Pain / Angina, Heart Failure, GI Bleed, Hyperlipidemia, Hypertension, Myocardial Infarction ([place]), Pneumonia, Renal Disease, Vascular Disorder Additional Past Medical History / Comment(s): [place] 2013, lower GI bleed, anemia, iron deficiency anemia, chronic kidney dx stage IV with dialysis //Wed- last hemo about 1 week ago, diverticulosis, colon polyp (removed), PVD-pt needs bilateral leg bypass surgery but cannot have surgery unless he quits. smoking, neck fx as a young person with seizures following last one years ago. Last Myocardial Infarction Date:: 2013 History of Any Multi-Drug Resistant Organisms: None Reported Past Surgical History: Heart Catheterization With Stent Additional Past Surgical History / Comment(s): ccath with stents in 2007, 11/19/14 EGD with bx and Colonoscopy with polypectomy, bilateral cataract removal with lens implants, shunt L arm. Past Anesthesia/Blood Transfusion Reactions: No Reported Reaction Date of Last Stent Placement:: 2007 Smoking Status: Current every day smoker - Past Family History Father Family Medical History: Myocardial Infarction ([place]) Additional Family Medical History / Comment(s): Father at age 59 of a [place] Mother Family Medical History: CVA/TIA Additional Family Medical History / Comment(s): Mother of a brain hemorrage. Medications and Allergies Home Medications Medication Instructions Recorded Confirmed Type Fish Oil/Dha/Epa [Fish Oil 1,200 1 cap PO BID 11/18/16 02/27/19 History mg Fish Oil] Aspirin 81 mg PO DAILY #30 chew 11/21/16 02/27/19 Rx Ipratropium-Albuterol Nebulize 3 ml INHALATION RT-QID #120 01/20/18 02/27/19 Rx [Duoneb 0.5 mg-3 mg/3 ml Soln] ampul.neb Lisinopril [Zestril] 2.5 mg PO DAILY #30 tab 01/20/18 02/27/19 Rx Atorvastatin [Lipitor] 40 mg PO DAILY 02/27/19 02/27/19 History Calcium Acetate [Phoslo] 667 mg PO BID 02/27/19 02/27/19 History Metoprolol Tartrate [Lopressor] 25 mg PO BID 02/27/19 02/27/19 History Awilda-Fred 0.8mg 0.8 mg PO DAILY 02/27/19 02/27/19 History amLODIPine [Norvasc] 10 mg PO DAILY 02/27/19 02/27/19 History hydrALAZINE HCL [Apresoline] 50 mg PO BID 02/27/19 02/27/19 History Allergies Allergy/AdvReac Type Severity Reaction Status Date / Time No Known Allergies Allergy Verified 02/27/19 13:49 Physical Exam Vitals: Vital Signs Temp Pulse Pulse Resp BP BP Pulse Ox 02/28/19 12:00 97.4 F L 74 18 136/52 98 02/28/19 08:00 97.6 F 75 16 150/64 97 02/28/19 07:23 80 02/28/19 07:14 72 96 02/28/19 04:00 97.4 F L 74 18 112/53 96 02/28/19 03:42 18 06/18/19 00:00 98.2 F 71 18 170/52 95 02/27/19 23:46 18 02/27/19 20:00 18 02/27/19 19:49 97.8 F 88 18 146/79 02/27/19 19:19 98.3 F 82 18 146/79 97 02/27/19 16:00 97.8 F 63 18 175/75 99 02/27/19 15:44 184/82 02/27/19 15:08 97.7 F 73 18 208/82 98 02/27/19 14:36 72 18 205/97 98 Intake and Output 02/27/19 02/28/19 02/28/19 22:59 06:59 14:59 Intake Total 240 Output Total 1200 200 Balance -960 -200 Intake: Oral 240 Output: Urine 200 Stool 0 Hemodialysis 1200 Other: Voiding Method Urinal Results - Lab Results Most recent lab results Calcium 7.8 mg/dL (8.4-10.2) L 02/27/19 13:12 Phosphorus 8.0 mg/dL (2.5-4.5) H 02/27/19 13:12 Magnesium 2.1 mg/dL (1.6-2.3) 02/27/19 13:12 02/27/19 13:12 02/27/19 13:12 Assessment and Plan Plan: Assessment: 1. End-stage renal disease maintained on hemodialysis on a Wednesday schedule via left upper extremity AV fistula. 2. Hyperkalemia secondary to noncompliance with hemodialysis. 3. Metabolic acidosis secondary to chronic kidney disease. 4. Hyperphosphatemia secondary to chronic kidney disease and maintenance hemodialysis treatments. 5. Hypertension with chronic kidney disease. Controlled. 6. Chronic kidney disease mineral bone disease. Plan: Currently seen while undergoing hemodialysis. Stressed to patient to be compliant with his hemodialysis treatments as it can be life-threatening if he continues to missed dialysis treatments. Patient will continue to think about long-term goals and whether or not he was to continue with hemodialysis long-term. Resume PhosLo with meals. Next hemodialysis treatment on . Stable to be discharged home from nephrology standpoint after dialysis today. Thank you for the consultation. I will continue to follow the patient with you during his hospital stay.
[2019-02-28 13:45] VITALS: BP 141/75; PULSE 87; TEMP 97.8
[2019-02-28 15:05] LABS: Calcium 8.1 mg/dL (8.4-10.2); Potassium 4.1 mmol/L (3.5-5.1)
--- NOTE | 2019-02-28 15:15 | P.DS ---
Providers Date of admission: 02/27/19 14:11 Expected date of discharge: 02/28/19 Attending physician: Edward Bowen Consults: 02/27/19 14:11 Consult Physician Routine Consulting Provider: Ifrah Gonzalez Consult Reason/Comments: needHD Do you want consulting provider notified?: Yes Primary care physician: Edward Bowen [facility] Course: 78-year-old man presented the emergency room stating that he had declined his the dialysis treatment this week. Find a found to be hyperkalemia took with the potassium a 6.9 creatinine 9.79. Consultation for dialysis obtained for nephrology. Patient was dialyzed potassium normalized creatinine reduced Assessment acute and chronic renal failure end-stage with dialysis stage IV hyperkalemia history of coronary disease with [place] and stents history of congestive heart for stable hypertension hyperlipidemia vascular disease Plan follow up with family physician continue dialysis Patient Condition at Discharge: Fair Plan - Discharge Summary Discharge Rx Participant: No New Discharge Prescriptions: Continue Fish Oil/Dha/Epa [Fish Oil 1,200 mg Fish Oil] 1 cap PO BID Aspirin 81 mg PO DAILY #30 chew Ipratropium-Albuterol Nebulize [Duoneb 0.5 mg-3 mg/3 ml Soln] 3 ml INHALATION RT-QID #120 ampul.neb Lisinopril [Zestril] 2.5 mg PO DAILY #30 tab Awilda-Fred 0.8mg 0.8 mg PO DAILY amLODIPine [Norvasc] 10 mg PO DAILY Atorvastatin [Lipitor] 40 mg PO DAILY Calcium Acetate [PhosLo] 667 mg PO BID hydrALAZINE HCL [Apresoline] 50 mg PO BID Metoprolol Tartrate [Lopressor] 25 mg PO BID Discharge Medication List Fish Oil/Dha/Epa [Fish Oil 1,200 mg Fish Oil] 1 cap PO BID 11/18/16 [History] Aspirin 81 mg PO DAILY #30 chew 11/21/16 [Rx] Ipratropium-Albuterol Nebulize [Duoneb 0.5 mg-3 mg/3 ml Soln] 3 ml INHALATION RT-QID #120 ampul.neb 01/20/18 [Rx] Lisinopril [Zestril] 2.5 mg PO DAILY #30 tab 01/20/18 [Rx] Atorvastatin [Lipitor] 40 mg PO DAILY 02/27/19 [History] Calcium Acetate [PhosLo] 667 mg PO BID 02/27/19 [History] Metoprolol Tartrate [Lopressor] 25 mg PO BID 02/27/19 [History] Awilda-Fred 0.8mg 0.8 mg PO DAILY 02/27/19 [History] amLODIPine [Norvasc] 10 mg PO DAILY 02/27/19 [History] hydrALAZINE HCL [Apresoline] 50 mg PO BID 02/27/19 [History] Follow up Appointment(s)/Referral(s): Edward Bowen MD [Primary Care Provider] - 1-2 days
[2019-02-28] MEDS ORDERED: CALCIUM ACETATE 667 MG CAP PO SCH (17:30)
[2019-03-01] MEDS ORDERED: ENOXAPARIN 30 MG/0.3 ML SYRINGE SQ SCH (09:00)
== END 2019-02-28 15:45 | disposition home or self-care (01) ==
LOC: EC 12:27 → 1SOBS 14:11
PROVIDERS: ADMIT Family Medicine; ATTEND Family Medicine
DX: N17.9 Acute kidney failure, unspecified (principal); I13.2 Hypertensive heart and chronic kidney disease with heart failure and with stage 5 chronic kidney disease, or end stage renal disease; N18.6 End stage renal disease; E87.5 Hyperkalemia; I50.9 Heart failure, unspecified; Z91.15 Patient's noncompliance with renal dialysis; E87.2 Acidosis; I77.0 Arteriovenous fistula, acquired; Z99.2 Dependence on renal dialysis; E83.9 Disorder of mineral metabolism, unspecified; I25.10 Atherosclerotic heart disease of native coronary artery without angina pectoris; E78.5 Hyperlipidemia, unspecified; I73.9 Peripheral vascular disease, unspecified; K57.90 Diverticulosis of intestine, part unspecified, without perforation or abscess without bleeding; D50.9 Iron deficiency anemia, unspecified; F17.200 Nicotine dependence, unspecified, uncomplicated; E83.39 Other disorders of phosphorus metabolism; Z79.82 Long term (current) use of aspirin; Z79.899 Other long term (current) drug therapy; Z87.01 Personal history of pneumonia (recurrent); I25.2 Old myocardial infarction; Z87.19 Personal history of other diseases of the digestive system; Z86.010 Personal history of colon polyps; Z86.69 Personal history of other diseases of the nervous system and sense organs; Z87.81 Personal history of (healed) traumatic fracture; Z95.5 Presence of coronary angioplasty implant and graft; Z98.42 Cataract extraction status, left eye; Z98.41 Cataract extraction status, right eye; Z96.1 Presence of intraocular lens; Z82.49 Family history of ischemic heart disease and other diseases of the circulatory system; Z82.3 Family history of stroke
CPT/HCPCS: 96375 ×2; 96361; 96374; 99285; 36415; 94640; 94760; 93005; 80053; 80048; 83735; 84100; 85025; 85610; 85730; G0378 ×2; G0257; J2405; J0610; 90935

== ENCOUNTER 2019-08-07 18:40 | Emergency (ER) | payer MEDICARE ==
[2019-08-07 18:46] VITALS: RESP 20
[2019-08-07] MEDS ORDERED: valACYclovir 500 MG TAB PO STA (19:48)
--- NOTE | 2019-08-07 19:52 | ED ---
General Adult HPI - General Chief complaint: Abdominal Pain Stated complaint: rt sided abd pain Time Seen by Provider: 08/07/19 19:20 Source: patient, RN notes reviewed, old records reviewed Mode of arrival: ambulatory Limitations: no limitations - History of Present Illness Initial comments: 79-year-old male patient passed no history of end-stage renal disease on hemodialysis. Presents to ED with chief complaint of right upper abdominal pain. Has been ongoing for approximately 2 days. Denies any other complaints at this time. Systemic: Pt denies fatigue, fever/chills, rash. Pt denies weakness, night sweats, weight loss. Neuro: Pt denies headache, visual disturbances, syncope or pre-syncope. HEENT: Pt denies ocular discharge or irritation, otalgia, rhinorrhea, pharyngitis or notable lymphadenopathy. Cardiopulmonary: Pt denies chest pain, SOB, heart palpitations, dyspnea on exertion. Abdominal/GI: Pt denies abdominal pain, n/v/d. : Pt denies dysuria, burning w/ urination, frequency/urgency. Denies new onset urinary or bowel incontinence. MSK: Pt denies myalgia, loss of strength or function in extremities. Neuro: Pt denies new onset weakness, paresthesias. - Related Data Home Medications Medication Instructions Recorded Confirmed Fish Oil/Dha/Epa [Fish Oil 1,200 1 cap PO BID 11/18/16 02/27/19 mg Fish Oil] Atorvastatin [Lipitor] 40 mg PO DAILY 02/27/19 02/27/19 Calcium Acetate [PhosLo] 667 mg PO BID 02/27/19 02/27/19 Metoprolol Tartrate [Lopressor] 25 mg PO BID 02/27/19 02/27/19 Awilda-Fred 0.8mg 0.8 mg PO DAILY 02/27/19 02/27/19 amLODIPine [Norvasc] 10 mg PO DAILY 02/27/19 02/27/19 hydrALAZINE HCL [Apresoline] 50 mg PO BID 02/27/19 02/27/19 Previous Rx's Medication Instructions Recorded Aspirin 81 mg PO DAILY #30 chew 11/21/16 Ipratropium-Albuterol Nebulize 3 ml INHALATION RT-QID #120 01/20/18 [Duoneb 0.5 mg-3 mg/3 ml Soln] ampul.neb Lisinopril [Zestril] 2.5 mg PO DAILY #30 tab 01/20/18 valACYclovir HCL [Valtrex] 500 mg PO DAILY 6 Days #6 tab 08/07/19 Allergies Allergy/AdvReac Type Severity Reaction Status Date / Time No Known Allergies Allergy Verified 08/07/19 18:45 Review of Systems ROS Statement: Those systems with pertinent positive or pertinent negative responses have been documented in the HPI. ROS Other: All systems not noted in ROS Statement are negative. 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 smoking, neck fx as a young person with seizures following last one years ago. Last Myocardial Infarction Date:: 2013 History of Any Multi-Drug Resistant Organisms: None Reported Past Surgical History: Heart Catheterization With Stent Additional Past Surgical History / Comment(s): ccath with stents in 2007, 11/19/14 EGD with bx and Colonoscopy with polypectomy, bilateral cataract removal with lens implants, shunt L arm. Past Anesthesia/Blood Transfusion Reactions: No Reported Reaction Date of Last Stent Placement:: 2007 Past Psychological History: No Psychological Hx Reported Smoking Status: Current every day smoker - Past Family History Father Family Medical History: Myocardial Infarction (RI) Additional Family Medical History / Comment(s): Father at age 59 of a RI Mother Family Medical History: CVA/TIA Additional Family Medical History / Comment(s): Mother of a brain hemo rrage. General Exam - General Exam Comments Initial Comments: Constitutional: NAD, AOX3, Pt has pleasant affect. HEENT: NC/AT, trachea midline, neck supple, no lymphadenopathy. Posterior pharynx non erythematous, without exudates. External ears appear normal, without discharge. Mucous membranes moist. Eyes PERRLA, EOM intact. There is no scleral icterus. No pallor noted. Cardiopulmonary: RRR, no murmurs, rubs or gallops, no JVD noted. Lungs CTAB in anterior and posterior fish. No peripheral edema. Abdominal exam: Abdomen soft and non-distended. Abdomen non-tender to palpation in all 4 quadrants. Bowel sounds active in LLQ. No hepatosplenomegaly. No ecchymosis Neuro: CN II-XII grossly intact. No nuchal rigidity. No raccon eyes, no reyes sign, no hemotympanum. No cervical spinal tenderness. MSK: No posterior calf tenderness bilaterally, homans sign negative bilaterally. Posterior tibialis and radial pulse +2 bilaterally. Sensation intact in upper and lower extremities. Full active ROM in upper and lower extremities, 5/5 stregnth. Derm: Shingles rash noted in right upper abdominal region. Does not cross midline. Limitations: no limitations Course Vital Signs 08/07/19 08/07/19 08/07/19 18:42 19:59 20:00 Temperature 98.2 F 97.5 F L Pulse Rate 89 81 Respiratory 20 20 Rate Blood Pressure 193/83 171/77 O2 Sat by Pulse 96 95 Oximetry Medical Decision Making - Medical Decision Making 79-year-old male patient presents ED chief complaint of right upper abdominal pain the last 2 days. Patient vital signs displayed mild hypertension. Physical exam is that shingles rash and right upper abdominal region. Patient what this is where he is having the pain. Denies looking at his abdomen for last 2 days. Patient started on Valtrex. Pt reports that he has had shingles in the psat. Will discharge with follow-up with primary care provider will return to ER if condition worsens. Case discussed with Dr. Cruz. Disposition Clinical Impression: Shingles Disposition: HOME SELF-CARE Condition: Stable Instructions (If sedation given, give patient instructions): Shingles (ED) Additional Instructions: Patient to adhere to previously discussed treatment plan and will take medication(s) as directed. Patient to follow up with PCP in 1-2 days. Patient to return to ED if symptoms do not improve. Take medications as directed. Follow-up with primary care provider tomorrow. Return to ER if condition worsens. Prescriptions: valACYclovir HCL [Valtrex] 500 mg PO DAILY 6 Days #6 tab Is patient prescribed a controlled substance at d/c from ED?: No Referrals: Edward Bowen MD [Primary Care Provider] - 1-2 days
[2019-08-07 20:01] VITALS: BP 171/77; PULSE 81
[2019-08-07 20:04] VITALS: TEMP 97.5
== END 2019-08-07 20:06 | disposition home or self-care (01) ==
LOC: EC 18:40
DX: B02.9 Zoster without complications (principal); I25.119 Atherosclerotic heart disease of native coronary artery with unspecified angina pectoris; I25.2 Old myocardial infarction; I13.2 Hypertensive heart and chronic kidney disease with heart failure and with stage 5 chronic kidney disease, or end stage renal disease; N18.5 Chronic kidney disease, stage 5; I50.9 Heart failure, unspecified; E78.5 Hyperlipidemia, unspecified; F17.200 Nicotine dependence, unspecified, uncomplicated; Z79.899 Other long term (current) drug therapy; Z95.5 Presence of coronary angioplasty implant and graft; Z99.2 Dependence on renal dialysis
CPT/HCPCS: 99284

== ENCOUNTER 2019-09-17 17:00 | Inpatient (IN) | payer MEDICARE ==
[2019-09-17] MEDS ORDERED: ONDANSETRON 4 MG/2 ML VIAL IVP STA (17:37)
[2019-09-17] MEDS ORDERED: SODIUM CHLORIDE 0.9% 1,000 ML IV STA (17:37)
[2019-09-17] MEDS ORDERED: ACETAMINOPHEN TAB 500 MG TAB PO STA (17:44)
[2019-09-17] MEDS ORDERED: SODIUM CHLORIDE 0.9% 250 ML IV ONE (17:45)
--- NOTE | 2019-09-17 17:52 | ED ---
General Adult HPI - General Chief complaint: Nausea/Vomiting/Diarrhea Stated complaint: N/V/Weakness Time Seen by Provider: 09/17/19 17:20 Source: patient, family Mode of arrival: wheelchair Limitations: physical limitation - History of Present Illness Initial comments: Patient presents the ED with his daughter and grandsons 2 for evaluation. Patient reports having nausea, vomiting and generalized weakness since last night. Daughter states that the patient has had decreased activity and decreased appetite today. Patient is noted to have a fever on arrival to the ED. Patient denies having any pain, headache, focal neuro deficit, neck pain or st iffness, sore throat, cough or cold symptoms, chest pain, dyspnea, palpitations, dizziness, abdominal pain, diarrhea or constipation, bloody or melanotic stool, hematemesis, or any other symptoms or complaints. Patient is on hemodialysis, and daughter states he was last dialyzed yesterday. Patient states that he does not produce any urine. - Related Data Home Medications Medication Instructions Recorded Confirmed Fish Oil/Dha/Epa [Fish Oil 1,200 1 cap PO BID 11/18/16 02/27/19 mg Fish Oil] Atorvastatin [Lipitor] 40 mg PO DAILY 02/27/19 02/27/19 Calcium Acetate [PhosLo] 667 mg PO BID 02/27/19 02/27/19 Metoprolol Tartrate [Lopressor] 25 mg PO BID 02/27/19 02/27/19 Awilda-Fred 0.8mg 0.8 mg PO DAILY 02/27/19 02/27/19 amLODIPine [Norvasc] 10 mg PO DAILY 02/27/19 02/27/19 hydrALAZINE HCL [Apresoline] 50 mg PO BID 02/27/19 02/27/19 Previous Rx's Medication Instructions Recorded Aspirin 81 mg PO DAILY #30 chew 11/21/16 Ipratropium-Albuterol Nebulize 3 ml INHALATION RT-QID #120 01/20/18 [Duoneb 0.5 mg-3 mg/3 ml Soln] ampul.neb Lisinopril [Zestril] 2.5 mg PO DAILY #30 tab 01/20/18 valACYclovir HCL [Valtrex] 500 mg PO DAILY 6 Days #6 tab 08/07/19 Allergies Allergy/AdvReac Type Severity Reaction Status Date / Time No Known Allergies Allergy Verified 09/17/19 17:13 Review of Systems ROS Statement: Those systems with pertinent positive or pertinent negative responses have been documented in the HPI. ROS Other: All systems not noted in ROS Statement are negative. 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 Last Myocardial Infarction Date:: 2013 History of Any Multi-Drug Resistant Organisms: None Reported Past Surgical History: Heart Catheterization With Stent Additional Past Surgical History / Comment(s): 11/19/14 EGD with bx and Colonoscopy with polypectomy, bilateral cataract removal with lens implants, shunt L arm. Past Anesthesia/Blood Transfusion Reactions: No Reported Reaction Date of Last Stent Placement:: 2007 Past Psychological History: No Psychological Hx Reported Smoking Status: Former smoker Past Alcohol Use History: None Reported Past Drug Use History: None Reported - Past Family History Father Family Medical History: Myocardial Infarction (RI) Additional Family Medical History / Comment(s): Father at age 59 of a RI Mother Family Medical History: CVA/TIA Additional Family Medical History / Comment(s): Mother of a brain hemorrage. General Exam Limitations: physical limitation General appearance: alert, in no apparent distress Head exam: Present: atraumatic, normocephalic Eye exam: Present: normal appearance, PERRL, EOMI ENT exam: Present: normal oropharynx, mucous membranes moist Neck exam: Present: other (Trachea is in midline). Absent: tenderness, meningismus Respiratory exam: Present: normal lung sounds bilaterally, other (Right-sided dialysis catheter is noted). Absent: respiratory distress, wheezes, rales, rhonchi Cardiovascular Exam: Present: normal rhythm, tachycardia, normal heart sounds GI/Abdominal exam: Present: soft, normal bowel sounds. Absent: distended, tenderness, guarding Extremities exam: Absent: tenderness, pedal edema, calf tenderness Back exam: Absent: CVA tenderness (R), CVA tenderness (L) Neurological exam: Present: alert, oriented X3. Absent: motor sensory deficit Psychiatric exam: Present: normal affect, normal mood Skin exam: Present: warm, dry, intact, normal color Course Vital Signs 09/17/19 09/17/19 09/17/19 17:10 17:22 17:48 Temperature 100.5 F H 102.4 F H Pulse Rate 109 H 107 H Respiratory 18 24 Rate Blood Pressure 207/81 O2 Sat by Pulse 94 L 95 89 L Oximetry 09/17/19 17:55 Temperature Pulse Rate 98 Respiratory 22 Rate Blood Pressure 163/75 O2 Sat by Pulse 96 Oximetry - Reevaluation(s) Reevaluation #1: 09/17/19 19:00 Case, H&P, test results and ED management thus far were discussed with Dr. Bowen. He accepts hospital admission. He recommends IV antibiotic treatment with Zosyn and vancomycin given the patient's fever, symptoms and laboratory findings. He has no further recommendation at this time. 09/17/19 19:10 Patient and family are aware of the patient's test results, and patient agrees with hospital admission at this time. Patient has not had any vomiting while in the ED. Patient's abdomen remains soft and nontender on exam. Patient denies development of any new symptoms while in the ED. EKG Findings - EKG Comments: EKG Findings:: Sinus tachycardia, ventricular rate of 103 bpm, right bundle branch block, normal NV interval, QRS duration of 144 ms, normal QT interval, normal axis, no ST or T-wave abnormality Medical Decision Making - Medical Decision Making Given the patient's fever, leukocytosis, indwelling dialysis catheter and vomiting, will treat the patient with IV antibiotics and admit the patient to the hospital for further evaluation and monitoring. The etiology of the patient's fever is unclear at this time. Patient's chest x-ray is negative. Patient's CT abdomen/pelvis is fairly unremarkable. Patient's influenza studies are negative. Patient's lactic acid level is within normal limits. Dr. Bowen has accepted hospital admission. - Lab Data Result diagrams: 09/17/19 17:34 09/17/19 17:34 Lab Results 09/17/19 09/17/19 09/17/19 Range/Units 17:34 17:34 17:34 WBC 18.1 H (3.8-10.6) k/uL RBC 4.10 L (4.30-5.90) m/uL Hgb 12.6 L (13.0-17.5) gm/dL Hct 38.0 L (39.0-53.0) % MCV 92.7 (80.0-100.0) fL MCH 30.7 (25.0-35.0) pg MCHC 33.1 (31.0-37.0) g/dL RDW 14.3 (11.5-15.5) % Plt Count 150 (150-450) k/uL Neutrophils % 91 % Lymphocytes % 3 % Monocytes % 5 % Eosinophils % 1 % Basophils % 0 % Neutrophils # 16.4 H (1.3-7.7) k/uL Lymphocytes # 0.5 L (1.0-4.8) k/uL Monocytes # 0.8 (0-1.0) k/uL Eosinophils # 0.1 (0-0.7) k/uL Basophils # 0.1 (0-0.2) k/uL Sodium 139 (137-145) mmol/L Potassium 4.6 (3.5-5.1) mmol/L Chloride 101 (98-107) mmol/L Carbon Dioxide 26 (22-30) mmol/L Anion Gap 12 mmol/L BUN 31 H (9-20) mg/dL Creatinine 6.29 H (0.66-1.25) mg/dL Est GFR (CKD-EPI)AfAm 9 (>60 ml/min/1.73 sqM) Est GFR (CKD-EPI)NonAf 8 (>60 ml/min/1.73 sqM) Glucose 148 H (74-99) mg/dL Plasma Lactic Acid Gage 1.7 (0.7-2.0) mmol/L Calcium 8.7 (8.4-10.2) mg/dL Total Bilirubin 1.0 (0.2-1.3) mg/dL AST 22 (17-59) U/L ALT 12 (4-49) U/L Alkaline Phosphatase 59 (38-126) U/L Total Protein 6.7 (6.3-8.2) g/dL Albumin 4.0 (3.5-5.0) g/dL Lipase 33 (23-300) U/L Influenza Type A RNA (Not Detectd) Influenza Type B (PCR) (Not Detectd) 09/17/19 Range/Units 17:46 WBC (3.8-10.6) k/uL RBC (4.30-5.90) m/uL Hgb (13.0-17.5) gm/dL Hct (39.0-53.0) % MCV (80.0-100.0) fL MCH (25.0-35.0) pg MCHC (31.0-37.0) g/dL RDW (11.5-15.5) % Plt Count (150-450) k/uL Neutrophils % % Lymphocytes % % Monocytes % % Eosinophils % % Basophils % % Neutrophils # (1.3-7.7) k/uL Lymphocytes # (1.0-4.8) k/uL Monocytes # (0-1.0) k/uL Eosinophils # (0-0.7) k/uL Basophils # (0-0.2) k/uL Sodium (137-145) mmol/L Potassium (3.5-5.1) mmol/L Chloride (98-107) mmol/L Carbon Dioxide (22-30) mmol/L Anion Gap mmol/L BUN (9-20) mg/dL Creatinine (0.66-1.25) mg/dL Est GFR (CKD-EPI)AfAm (>60 ml/min/1.73 sqM) Est GFR (CKD-EPI)NonAf (>60 ml/min/1.73 sqM) Glucose (74-99) mg/dL Plasma Lactic Acid Gage (0.7-2.0) mmol/L Calcium (8.4-10.2) mg/dL Total Bilirubin (0.2-1.3) mg/dL AST (17-59) U/L ALT (4-49) U/L Alkaline Phosphatase (38-126) U/L Total Protein (6.3-8.2) g/dL Albumin (3.5-5.0) g/dL Lipase (23-300) U/L Influenza Type A RNA Not Detected (Not Detectd) Influenza Type B (PCR) Not Detected (Not Detectd) - Radiology Data Radiology results: report reviewed (CT abdomen/pelvis shows nonspecific abdomen and no abnormality to explain the patient's symptoms), image reviewed (Chest x- ray is negative) Disposition Clinical Impression: Acute febrile illness, Nausea and vomiting, Weakness, Chronic renal failure Disposition: ADMITTED IP TO THIS HOSP Condition: Stable Is patient prescribed a controlled substance at d/c from ED?: No Referrals: Edward Bowen MD [Primary Care Provider] - 1-2 days Time of Disposition: 19:16
[2019-09-17 17:55] LABS: Basophils # (A) 0.1 k/uL (0-0.2); Basophils % (A) 0 %; Eosinophils # (A) 0.1 k/uL (0-0.7); Eosinophils % (A) 1 %; HGB 12.6 gm/dL (13.0-17.5); Lymphocytes # (A) 0.5 k/uL (1.0-4.8); Lymphocytes % (A) 3 %; MCH 30.7 pg (25.0-35.0); MCHC 33.1 g/dL (31.0-37.0); MCV 92.7 fL (80.0-100.0); Mean Platelet Volume 9.4; Monocytes # (A) 0.8 k/uL (0-1.0); Monocytes % (A) 5 %; Neutrophils # (A) 16.4 k/uL (1.3-7.7); Neutrophils % (A) 91 %; Platelet Count 150 k/uL (150-450); RDW 14.3 % (11.5-15.5); WBC 18.1 k/uL (3.8-10.6)
[2019-09-17 18:04] LABS: Calcium 8.7 mg/dL (8.4-10.2); Potassium 4.6 mmol/L (3.5-5.1); Total Protein 6.7 g/dL (6.3-8.2)
--- NOTE | 2019-09-17 18:31 | CT ---
EXAMINATION TYPE: CT abdomen pelvis wo con DATE OF EXAM: 09/17/2019 COMPARISON: None INDICATION: fever, weakness, vomiting DLP: 584.6 mGycm, Automated exposure control for dose reduction was used. CONTRAST: 0 mL of Isovue 300. Study performed without Oral Contrast TECHNIQUE: Axial images were obtained from above the diaphragm to the pubic rami in the axial plane a t 5 mm thick sections. Reconstructed images are reviewed on the computer in the coronal plane. FINDINGS: Limited CT sections are obtained the lung bases. No suspicious acute changes at the lung bases. Vasc ular calcifications within the aorta.. CT ABDOMEN: Liver: Normal Spleen: Normal Pancreas: Normal Adrenal glands: The adrenal glands are normal. Gallbladder: Normal Kidneys: Kidneys are atrophic.. There is a cyst on the posterior left kidney measuring 2.6 cm and -6 Hounsfield units. No renal stones are identified. No hydronephrosis is present. Aorta: Vascular calcification is within the aorta. Mild prominence of the mid abdominal aorta with a n AP diameter of 2.8 cm. Inferior vena cava: Normal. CT PELVIS: Loops of bowel within the abdomen and pelvis are normal. Studies without oral contrast limiting b owel evaluation. No dilated loops of bowel are evident. Scattered diverticuli are present. No acute d iverticulitis is evident. Appendix: Not identified. No dilated tubular structures or inflammatory changes are in the right lowe r quadrant. Urinary bladder: Normal. Genitourinary structures: Prostate is slight prominence. Osseous structures: No suspicious lytic or sclerotic lesions. IMPRESSIONS: 1. Nonspecific abdomen. 2. Renal failure. There is a cyst on the inferior pole left kidney. 3. Colonic diverticulosis without acute diverticulitis
--- NOTE | 2019-09-17 18:51 | XR ---
EXAMINATION TYPE: XR chest 2V DATE OF EXAM: 09/17/2019 COMPARISON: 11/10/2018 INDICATION: Fever vomiting TECHNIQUE: Frontal and lateral views of the chest are obtained. FINDINGS: The heart size is normal. The pulmonary vasculature is normal. The lungs are clear. Her graft double-lumen catheter is on the right with the tips in the superior v chantell cava region. IMPRESSION: 1. No acute pulmonary process.
[2019-09-17] MEDS ORDERED: VANCOMYCIN IV PER PHARMACY 1 EACH MISC MISCELLANE STA (19:01)
[2019-09-17] MEDS ORDERED: SODIUM CHLORIDE 0.9% IVPB STA (19:02)
[2019-09-17] MEDS ORDERED: PIPERACILLIN TAZOBACTAM IVPB STA (19:02)
[2019-09-17] MEDS ORDERED: ONDANSETRON 4 MG/2 ML VIAL IVP PRN (19:16)
[2019-09-17] MEDS ORDERED: LORazepam 2 MG/ML INJ IV STA (20:13)
[2019-09-17] MEDS ORDERED: LORazepam 2 MG/ML INJ IV PRN (21:38)
[2019-09-17] MEDS: PANTOPRAZOLE 40 MG/10 ML VIAL IVP SCH (22:13)
[2019-09-17] MEDS: hydrALAZINE HCL 50 MG TAB PO SCH (22:54)
[2019-09-17] MEDS: METOPROLOL TARTRATE 25 MG TAB PO SCH (22:55)
--- NOTE | 2019-09-18 05:59 | HP ---
HISTORY AND PHYSICAL I am covering for Dr. Bowen. DATE OF SERVICE: 09/17/2019 CHIEF COMPLAINT: Nausea, vomiting, weakness. HISTORY OF PRESENT ILLNESS: This 79-year-old gentleman with a past medical history of multiple medical problems including CAD, CHF, history of hypertension, hyperlipidemia, history of myocardial infarction, also renal failure. Patient receives hemodialysis on Wednesday, , Wednesday cycle. Patient apparently had hemodialysis yesterday. Usually after hemodialysis, patient goes after eating everything, but yesterday patient was complaining of weak and patient was lying in the bed and this morning the patient woke up and vomited and complained of generalized weakness. The patient was taken to [facility] ER and was admitted for further evaluation and treatment. The initial evaluation in the ER showed elevated WBC and creatinine of 6.29. The abdomen and pelvis CAT scan was done which showed nonspecific abdomen, renal failure and colonic diverticulosis noted. The patient subsequently became agitated and was given Ativan. Currently patient is sedated, arousable but unable to give a coherent history. Most of the history taken by my discussion with the ER the staff and review of the chart at this time. PAST MEDICAL HISTORY: History of hemodialysis, chronic renal history, history of CAD, CHF, hypertension, hyperlipidemia, history of pneumonia, history of lower gastrointestinal bleed, history of CAD, stent. MEDICATIONS: The home medications are per chart include: 1. Apresoline 50 mg p.o. b.i.d. 2. Norvasc 10 mg p.o. daily. 3. Lopressor 25 mg p.o. b.i.d. 4. Zestril 2.5 mg p.o. daily. 5. Lipitor 40 mg daily. 6. Valtrex 500 mg p.o. daily. 7. Awilda-Fred 0.8 mg p.o. daily. 8. DuoNeb q.i.d. 9. Fish oil 1 p.o. b.i.d. 10.PhosLo 667 p.o. b.i.d. 11.Aspirin 81 mg p.o. daily. ALLERGIES: Allergies are none. FAMILY HISTORY: History of myocardial infarction in the family. SOCIAL HISTORY: Previous history of smoking. No history of current smoking per chart. REVIEW OF SYSTEMS: Could not be taken because of change in mental status. PHYSICAL EXAMINATION: Patient's pulse is 80, blood pressure 129/62, respiration 18, temperature 98 degrees, pulse ox 93% on 2 L. The temperature was 100.5 on admission. HEENT: Conjunctivae normal. Oral mucosa moist. NECK: No jugular venous distention. No carotid bruit. No lymph node enlargement. CARDIOVASCULAR: S1, S2 muffled. No S3, S4. RESPIRATORY: Breath sounds diminished at the bases. A few scattered rhonchi and crackles. ABDOMEN: Soft, nontender. No mass palpable. LEGS: No edema, no swelling. NERVOUS SYSTEM: The patient is sedated. SKIN: No ulcer, rash or bleeding. JOINTS: No active deforming arthropathy. LABS: WBC 18.1, hemoglobin 12.6 and creatinine 6.29. The abdomen and pelvis CAT scan noted. Chest x-ray which was reviewed personally by me showed possible increased and possible pneumonia. ASSESSMENT: 1. Fever, change in mental status, possible sepsis of undetermined etiology. Rule out pneumonia. 2. Rule out influenza. 3. Change in mental status, acute metabolic encephalopathy. 4. History of chronic renal failure on hemodialysis. 5. History of coronary artery disease, stent. 6. History of congestive heart failure, ejection fraction unknown. 7. History of gastrointestinal bleed. 8. Hypertension. 9. Hyperlipidemia. 10.Myocardial infarction. 11.History of pneumonia. 12.History of lower gastrointestinal bleed. 13.History of iron deficiency anemia. 14.History of colonic polyps. 15.FULL CODE. RECOMMENDATIONS AND DISCUSSION: This 79-year-old gentleman who presented with multiple complex medical issues, we will monitor the patient closely. Continue the current medications. Continue symptomatic treatment. Will initiate broad-spectrum IV antibiotics. Otherwise, I would recommend to resume the home medications. Obtain cultures. Repeat labs. Influenza testing. Guarded prognosis because of multiple complex medical issues. Further recommendations to follow. We will resume the home medications once the list is available. Consult Nephrology for continued hemodialysis. Further recommendations to follow. Dr. Bowen will follow tomorrow. MMFANNIEL / AUSTINN: [id number] / MTDD
[2019-09-18] MEDS ORDERED: PIPERACILLIN-TAZOBACTAM 3.375 GM in SODIUM CHLORIDE 0.9% 100 ML IVPB SCH (08:00)
[2019-09-18 08:43] LABS: Basophils # (A) 0.1 k/uL (0-0.2); Basophils % (A) 1 %; Eosinophils # (A) 0.1 k/uL (0-0.7); Eosinophils % (A) 0 %; HCT 43.5 % (39.0-53.0); HGB 13.9 gm/dL (13.0-17.5); Hypochromasia Slight; Lymphocytes # (A) 0.8 k/uL (1.0-4.8); Lymphocytes % (A) 5 %; MCH 30.9 pg (25.0-35.0); MCHC 31.8 g/dL (31.0-37.0); MCV 96.9 fL (80.0-100.0); Mean Platelet Volume 9.6; Monocytes # (A) 0.6 k/uL (0-1.0); Monocytes % (A) 4 %; Neutrophils # (A) 15.3 k/uL (1.3-7.7); Neutrophils % (A) 89 %; Platelet Count 129 k/uL (150-450); RBC 4.49 m/uL (4.30-5.90); RDW 14.3 % (11.5-15.5); WBC 17.2 k/uL (3.8-10.6)
[2019-09-18] MEDS: HEPARIN SODIUM,PORCINE 5,000 UNIT/ML 1 ML VIAL SQ SCH ×2 (09:33→20:29)
[2019-09-18] MEDS: amLODIPine 10 MG TAB PO SCH (09:33)
[2019-09-18] MEDS: METOPROLOL TARTRATE 25 MG TAB PO SCH ×2 (09:33→20:29)
[2019-09-18] MEDS: LISINOPRIL 2.5 MG TAB PO SCH (09:33)
[2019-09-18] MEDS: ATORVASTATIN 40 MG TAB PO SCH (09:33)
[2019-09-18] MEDS: hydrALAZINE HCL 50 MG TAB PO SCH ×2 (09:33→20:29)
[2019-09-18] MEDS: PANTOPRAZOLE 40 MG/10 ML VIAL IVP SCH (09:34)
[2019-09-18 09:44] LABS: Albumin 3.9 g/dL (3.5-5.0); Calcium 8.7 mg/dL (8.4-10.2); Potassium 5.2 mmol/L (3.5-5.1); Total Bilirubin 0.9 mg/dL (0.2-1.3); Total Protein 6.7 g/dL (6.3-8.2)
--- NOTE | 2019-09-18 09:47 | P.NPCON ---
History of Present Illness - Reason for Consult end stage renal disease - History of Present Illness Reason for consultation: End-stage renal disease History of present illness: Patient is a 79-year-old male seen in renal consultation for end-stage renal disease. He is maintained on hemodialysis on Wednesday schedule. Patient presented to the hospital due to generalized weakness. Acco rding to the daughter, the patient was unable to even get up. At his baseline, he is able to drive and perform as activities of daily living. He was also noted to have a fever off 102.4F on admission. Hemodynamically he is stable. He did have episodes of vomiting. No diarrhea. No cough. He does admit to labored breathing. No chest pain. Patient has a permacath for dialysis access. His fistula is clotted and he scheduled to see vascular surgery outpatient for intervention. No missed dialysis. Vital signs are stable. General: The patient appeared well nourished and normally developed. HEENT: Head exam is unremarkable. Neck is without jugular venous distension. LUNGS: Lungs are clear to auscultation and percussion. Breath sounds decreased. HEART: Rate and Rhythm are regular. First and second heart sounds normal. No murmurs, rubs or gallops. ABDOMEN: Abdominal exam reveals normal bowel sounds. Non-tender and non- distended. No evidence of peritonitis. EXTREMITITES: No clubbing, cyanosis, or edema. Past Medical History Past Medical History: Coronary Artery Disease (CAD), Chest Pain / Angina, Heart Failure, GI Bleed, Hyperlipidemia, Hypertension, Myocardial Infarction ([place]), Pneumonia, Renal Disease, Vascular Disorder Additional Past Medical History / Comment(s): lower GI bleed, anemia, iron deficiency anemia, chronic kidney dx stage IV with dialysis , diverticulosis, colon polyp (removed), PVD , neck fx as a young person with seizures following last one years ago. Last Myocardial Infarction Date:: 2013 History of Any Multi-Drug Resistant Organisms: None Reported Past Surgical History: Heart Catheterization With Stent Additional Past Surgical History / Comment(s): 11/19/14 EGD with bx and Colonoscopy with polypectomy, bilateral cataract removal with lens implants, shunt L arm. Past Anesthesia/Blood Transfusion Reactions: No Reported Reaction Date of Last Stent Placement:: 2007 Past Psychological History: No Psychological Hx Reported Additional Psychological History / Comment(s): Pt resides with his Sarai braswell. Daughter manages his meds. He has a cane which he uses prn. He is independent with his ADLs. He drives a car. He has no home care agency. Smoking Status: Former smoker Past Alcohol Use History: None Reported Additional Past Alcohol Use History / Comment(s): Pt started smoking in 1954. Patient smokes 6-7 cigarettes a day. Past Drug Use History: None Reported - Past Family History Father Family Medical History: Myocardial Infarction ([place]) Additional Family Medical History / Comment(s): Father at age 59 of a [place] Mother Family Medical History: CVA/TIA Additional Family Medical History / Comment(s): Mother of a brain hemorrage. Medications and Allergies Home Medications Medication Instructions Recorded Confirmed Type Fish Oil/Dha/Epa [Fish Oil 1,200 1 cap PO BID 11/18/16 02/27/19 History mg Fish Oil] Aspirin 81 mg PO DAILY #30 chew 11/21/16 02/27/19 Rx Ipratropium-Albuterol Nebulize 3 ml INHALATION RT-QID #120 01/20/18 02/27/19 Rx [Duoneb 0.5 mg-3 mg/3 ml Soln] ampul.neb Lisinopril [Zestril] 2.5 mg PO DAILY #30 tab 01/20/18 02/27/19 Rx Atorvastatin [Lipitor] 40 mg PO DAILY 02/27/19 02/27/19 History Calcium Acetate [PhosLo] 667 mg PO BID 02/27/19 02/27/19 History Metoprolol Tartrate [Lopressor] 25 mg PO BID 02/27/19 02/27/19 History Awilda-Fred 0.8mg 0.8 mg PO DAILY 02/27/19 02/27/19 History amLODIPine [Norvasc] 10 mg PO DAILY 02/27/19 02/27/19 History hydrALAZINE HCL [Apresoline] 50 mg PO BID 02/27/19 02/27/19 History valACYclovir HCL [Valtrex] 500 mg PO DAILY 6 Days #6 tab 08/07/19 Rx Allergies Allergy/AdvReac Type Severity Reaction Status Date / Time No Known Allergies Allergy Verified 09/17/19 17:13 Physical Exam Vitals: Vital Signs Temp Pulse Pulse Resp BP BP Pulse Ox 09/18/19 05:00 97.4 F L 84 20 137/80 95 09/18/19 00:00 80 18 09/17/19 23:00 18 94 L 09/17/19 20:06 85 20 128/66 97 09/17/19 19:36 98 F 80 18 129/62 93 L 09/17/19 19:30 89 18 134/70 96 09/17/19 19:03 99.6 F 91 18 127/82 96 09/17/19 17:55 98 22 163/75 96 09/17/19 17:48 89 L 09/17/19 17:22 102.4 F H 107 H 24 95 09/17/19 17:10 100.5 F H 109 H 18 207/81 94 L Intake and Output 09/17/19 09/18/19 09/18/19 22:59 06:59 14:59 Intake Total 350 0 Balance 350 0 Intake: Intake, IV Titration 350 Amount Piperacillin-Tazobactam 3 100 .375 gm In Sodium Chloride 0.9% 100 ml @ 25 mls/hr IVPB Q12H [facility] Rx# :[id number] Sodium Chloride 0.9% 250 250 ml @ 999 mls/hr IV .Q16M ONE Rx#:[id number] Oral 0 Other: # Voids 0 0 Weight 72.575 kg Results - Lab Results Most recent lab results Calcium 8.7 mg/dL (8.4-10.2) 09/17/19 17:34 09/18/19 08:20 09/17/19 17:34 Assessment and Plan Plan: Assessment: 1. End-stage renal disease maintained on hemodialysis on Wednesday schedule via permacat. . 2. Clotted fistula. He is scheduled to see vascular surgery outpatient for intervention. 3. Sepsis. Influenza screen negative. Culture is pending. I will also check a set of culture from permacat. No acute changes noted on abdominal CAT scan. Maintained on IV antibiotics. 4. Hypertension with chronic kidney disease. Controlled. Plan: Hemodialysis tomorrow. Follow-up cultures. Thank you for the consultation. I will continue to follow the patient with you during his hospital stay.
--- NOTE | 2019-09-18 10:47 | P.PN ---
Subjective Patient resting in bed without complaints. Family states she's more responsive than yesterday.. Positive blood cultures will consult infectious disease Objective - Vital Signs Vital signs: Vital Signs Temp 97.4 F L 09/18/19 05:00 Pulse 84 09/18/19 05:00 Resp 20 09/18/19 05:00 BP 137/80 09/18/19 05:00 Pulse Ox 95 09/18/19 05:00 Intake & Output 09/17/19 09/18/19 09/18/19 18:59 06:59 18:59 Intake Total 350 Balance 350 Weight 72.575 kg 72.575 kg Intake: Intake, IV Titration 350 Amount Piperacillin-Tazobactam 3 100 .375 gm In Sodium Chloride 0.9% 100 ml @ 25 mls/hr IVPB Q12H [facility] Rx# :[id number] Sodium Chloride 0.9% 250 250 ml @ 999 mls/hr IV .Q16M ONE Rx#:[id number] Oral 0 Other: # Voids 0 - Constitutional General appearance: Present: mild distress - EENT Eyes: Present: PERRLA Ears: bilateral: normal - Neck Neck: Present: normal ROM - Respiratory Respiratory: bilateral: CTA - Cardiovascular Rhythm: regular - Gastrointestinal General gastrointestinal: Present: normal bowel sounds, soft - Integumentary Integumentary: Present: normal - Neurologic Neurologic: Present: CNII-XII intact - Musculoskeletal Musculoskeletal: Present: generalized weakness - Psychiatric Psychiatric: Present: A&O x's 3 - Labs CBC & Chem 7: 09/18/19 08:20 09/18/19 08:20 Labs: Abnormal Lab Results - Last 24 Hours (Table) 09/17/19 09/17/19 09/18/19 Range/Units 17:34 17:34 08:20 WBC 18.1 H (3.8-10.6) k/uL RBC 4.10 L (4.30-5.90) m/uL Hgb 12.6 L (13.0-17.5) gm/dL Hct 38.0 L (39.0-53.0) % Plt Count (150-450) k/uL Neutrophils # 16.4 H (1.3-7.7) k/uL Lymphocytes # 0.5 L (1.0-4.8) k/uL Potassium 5.2 H (3.5-5.1) mmol/L BUN 31 H 48 H (9-20) mg/dL Creatinine 6.29 H 7.35 H* (0.66-1.25) mg/dL Glucose 148 H (74-99) mg/dL 09/18/19 Range/Units 08:20 WBC 17.2 H (3.8-10.6) k/uL RBC (4.30-5.90) m/uL Hgb (13.0-17.5) gm/dL Hct (39.0-53.0) % Plt Count 129 L (150-450) k/uL Neutrophils # 15.3 H (1.3-7.7) k/uL Lymphocytes # 0.8 L (1.0-4.8) k/uL Potassium (3.5-5.1) mmol/L BUN (9-20) mg/dL Creatinine (0.66-1.25) mg/dL Glucose (74-99) mg/dL Microbiology - Last 24 Hours (Table) 09/17/19 17:40 Blood Culture Gram Stain - Preliminary Blood 09/17/19 17:40 Blood Culture - Final Blood - Imaging and Cardiology Chest x-ray: report reviewed CT scan - abdomen: report reviewed Assessment and Plan Plan: Assessment Metabolic encephalopathy with mental status changes improving probable sepsis etiology unknown History of chronic renal failure on dialysis end-stage History of coronary artery disease with stent history of [place] History of GI bleed Hypertension Hyperlipidemia Iron deficiency anemia Plan Consultation with infectious disease for positive blood culture Continue consultation with nephrology for dialysis Patient on Zosyn
[2019-09-18] MEDS ORDERED: VANCOMYCIN IV PER PHARMACY 1 EACH MISC MISCELLANE PRN (15:27)
[2019-09-18] MEDS ORDERED: VANCOMYCIN 1,500 MG in SODIUM CHLORIDE 0.9% 250 ML IVPB ONE (16:00)
[2019-09-18 18:16] LABS: Hepatitis B Surface AB- Quant 436.7 mIU/mL; Hepatitis B Surface Antibody Reactive (Non-Reactive); Hepatitis B Surface Antigen Non-Reactive (Non-Reactive)
--- NOTE | 2019-09-19 06:33 | CONS ---
CONSULTATION DATE OF SERVICE: 09/18/2019 REASON FOR CONSULTATION: Bacteremia. HISTORY OF PRESENT ILLNESS: The patient is a 79-year-old male with a past medical history significant for end-stage renal disease for which the patient is currently getting hemodialysis through the right subclavian Perma catheter which has been placed a few months ago. The patient presented to the ER at [facility] on 09/17/2019 for evaluation of nausea, vomiting and generalized weakness, which apparently started the night before he presented to the hospital. The patient denies having any headache. No URI symptoms. No chest pain. No shortness of breath. Minimal cough. No abdominal pain. With these symptoms, the patient was evaluated by the ER physician. On arrival to the ER, the patient did have a fever of 100.5 to 102.4 degrees Fahrenheit. The patient did have elevated white count at 18.1, creatinine 6.29. Electrolytes have been normal. Liver enzymes are normal. The patient's influenza serology was negative. The patient did have a chest x-ray which was negative for any acute cardiopulmonary process. The patient also had a CT of abdomen and pelvis completed which shows nonspecific abdomen, renal failure, cyst on inferior pole left kidney and colonic diverticulosis without any acute diverticulitis. The patient's blood culture now coming back positive with Staph aureus that prompted this infectious disease consultation. REVIEW OF SYSTEMS: Positive points have been mentioned in HPI. Rest of the systems are negative. PAST MEDICAL HISTORY: End-stage renal disease on hemodialysis, coronary artery disease, hypertension, hyperlipidemia, [place], pneumonia. PAST SURGICAL HISTORY: Heart catheterization with stent, EGD, colonoscopy, bilateral cataract removal and lens implant, shunt left arm, polypectomy and right subclavian Perma catheter. SOCIAL HISTORY: Remote history of smoking. No drinking or drug use. FAMILY HISTORY: Father with history of [place]. Mother history of brain hemorrhage, CVA, TIA. ALLERGIES: No known drug allergies. MEDICATIONS: Medications include the patient is currently on cefazolin 1 gram q.24, Lipitor, Norvasc, hydralazine, Zestril, Ativan, Lopressor, Protonix. PHYSICAL EXAMINATION: On examination, blood pressure 120/61 with a pulse of 79, temperature 98.7. He is 94% on 2 L nasal cannula. General description is an elderly male up in the bed in no distress. No tachypnea or accessory muscle of respiration use. HEENT: Examination shows no pallor or scleral icterus. Oral mucous membrane is dry. No pharyngeal erythema or thrush. NECK: Trachea central. No thyromegaly. LUNGS: Unlabored breathing, clear to auscultation anteriorly. No wheeze or crackle. HEART: S1, S2. Regular rate and rhythm. No added sounds. ABDOMEN: Soft, no tenderness. No guarding or rigidity. EXTREMITIES: No edema of the feet. SKIN EXAMINATION: No rash or mass palpable. NEUROLOGICALLY: Patient is awake, alert, oriented x3. Mood and affect normal. LABS: Hemoglobin 13.9, white count 17.2, BUN of 48, creatinine 7.35. Potassium is 5.2. Blood culture with Staph aureus, MSSA. DIAGNOSTIC IMPRESSION AND PLAN: Patient admitted to the hospital with sepsis in this patient who did have a fever, elevated white count. Did have symptoms of nausea and vomiting, now with evidence of Staphylococcus aureus bacteremia, source is likely infection of his Perma catheter as the patient currently does not have any other clinical focus of infection with the rest of the workup being negative so far. PLAN: 1. Blood culture will be repeated to document clearance of bacteremia. 2. The patient will need removal of this infectious catheter in order to completely clear this infection, which can be done after he has received dialysis tomorrow. 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 3. Cefazolin 1 gram daily to to his kidney function as apparently the culture has been MSSA, though official report is pending. 4. We will follow on his clinical condition and further adjust the medication if needed. Thank you for this consultation. Will follow this patient along with you. Family at the bedside and their questions were answered. MMODL / IJN: [id number] /
[2019-09-19] MEDS: METOPROLOL TARTRATE 25 MG TAB PO SCH ×2 (07:45→21:24)
[2019-09-19] MEDS: ATORVASTATIN 40 MG TAB PO SCH (07:45)
[2019-09-19] MEDS: hydrALAZINE HCL 50 MG TAB PO SCH ×2 (07:45→21:25)
[2019-09-19] MEDS: amLODIPine 10 MG TAB PO SCH (07:46)
[2019-09-19] MEDS: LISINOPRIL 2.5 MG TAB PO SCH (07:46)
[2019-09-19] MEDS: PANTOPRAZOLE 40 MG/10 ML VIAL IVP SCH (07:46)
[2019-09-19] MEDS: HEPARIN SODIUM,PORCINE 5,000 UNIT/ML 1 ML VIAL SQ SCH (07:49)
[2019-09-19 09:11] LABS: Basophils # (A) 0.2 k/uL (0-0.2); Basophils % (A) 1 %; Eosinophils # (A) 0.2 k/uL (0-0.7); Eosinophils % (A) 1 %; HCT 34.4 % (39.0-53.0); HGB 11.2 gm/dL (13.0-17.5); Lymphocytes # (A) 1.4 k/uL (1.0-4.8); Lymphocytes % (A) 12 %; MCH 31.5 pg (25.0-35.0); MCHC 32.7 g/dL (31.0-37.0); MCV 96.4 fL (80.0-100.0); Mean Platelet Volume 11.2; Monocytes # (A) 0.5 k/uL (0-1.0); Monocytes % (A) 5 %; Neutrophils # (A) 8.7 k/uL (1.3-7.7); Neutrophils % (A) 78 %; Platelet Count 134 k/uL (150-450); RBC 3.57 m/uL (4.30-5.90); RDW 14.4 % (11.5-15.5); WBC 11.2 k/uL (3.8-10.6)
[2019-09-19 09:32] LABS: Calcium 7.9 mg/dL (8.4-10.2); Potassium 3.9 mmol/L (3.5-5.1)
--- NOTE | 2019-09-19 11:10 | P.PN ---
Subjective Patient is seen in follow-up for end-stage renal disease. He is maintained on hemodialysis on Wednesday schedule. Patient presented with fever. Blood cultures positive for staph aureus. Denies chest pain or shortness of breath. Scheduled for dialysis today. Remains weak. Vital signs are stable. General: The patient appeared well nourished and normally developed. HEENT: Head exam is unremarkable. Neck is without jugular venous distension. LUNGS: Lungs are clear to auscultation and percussion. Breath sounds decreased. HEART: Rate and Rhythm are regular. First and second heart sounds normal. No murmurs, rubs or gallops. ABDOMEN: Abdominal exam reveals normal bowel sounds. Non-tender and non- distended. No evidence of peritonitis. EXTREMITITES: No clubbing, cyanosis, or edema. Objective - Vital Signs Vital signs: Vital Signs Temp 98.8 F 09/19/19 07:40 Pulse 83 09/19/19 07:40 Resp 16 09/19/19 07:40 BP 120/64 09/19/19 07:40 Pulse Ox 92 L 09/19/19 07:40 Intake & Output 09/18/19 09/19/19 09/19/19 18:59 06:59 18:59 Intake Total 700 50 Output Total 34 Balance 700 16 Intake: Intake, IV Titration 100 Amount Piperacillin-Tazobactam 2 100 .5 gm In Sodium Chloride 0.9% 100 ml @ 200 mls/hr IVPB [facility] Rx#: [id number] Oral 600 50 Output: Urine 34 Other: Voiding Method Toilet Toilet Urinal Urinal # Voids 3 - Labs CBC & Chem 7: 09/19/19 08:25 09/19/19 08:25 Labs: Abnormal Lab Results - Last 24 Hours (Table) 09/18/19 09/19/19 09/19/19 Range/Units 08:20 08:25 08:25 WBC 11.2 H (3.8-10.6) k/uL RBC 3.57 L (4.30-5.90) m/uL Hgb 11.2 L (13.0-17.5) gm/dL Hct 34.4 L (39.0-53.0) % Plt Count 134 L (150-450) k/uL Neutrophils # 8.7 H (1.3-7.7) k/uL BUN 64 H (9-20) mg/dL Creatinine 8.53 H* (0.66-1.25) mg/dL Glucose 176 H (74-99) mg/dL Calcium 7.9 L (8.4-10.2) mg/dL Hep Bs Antibody Reactive H (Non-Reactive) Microbiology - Last 24 Hours (Table) 09/18/19 14:40 Blood Culture Gram Stain - Preliminary Blood 09/17/19 17:40 Blood Culture Gram Stain - Preliminary Blood Blood Culture - Preliminary Staphylococcus aureus 09/18/19 19:25 Urine Culture - Preliminary Urine,Clean Catch 09/18/19 14:40 Blood Culture - Final Blood Assessment and Plan Plan: Assessment: 1. End-stage renal disease maintained on hemodialysis on Wednesday schedule via permacath. 2. Clotted fistula. He is scheduled to see vascular surgery outpatient for intervention. 3. Sepsis. Influenza screen negative. Source is permacath. No acute changes noted on abdominal CAT scan. Maintained on IV antibiotics. 4. Hypertension with chronic kidney disease. Controlled. Plan: Hemodialysis today. Discontinue permacath after dialysis today. Monitor for clearance of bacteremia. Will need new access placed once the infection cleared.
[2019-09-19] MEDS ORDERED: VANCOMYCIN 1,500 MG in SODIUM CHLORIDE 0.9% 250 ML IVPB ONE (12:00)
[2019-09-19] MEDS ORDERED: LIDOCAINE 1% INJ 10MG/ML (20 ML MDV) SQ ONE (12:42)
[2019-09-19] MEDS ORDERED: HYDROcodone/APAP 5-325MG 1 EACH TAB PO PRN (12:46)
[2019-09-19] MEDS: HYDROmorphone 0.5 MG/0.5 ML SYRINGE IVP PRN ×2 (12:56→16:41)
--- NOTE | 2019-09-19 13:36 | US ---
EXAMINATION TYPE: US thyroid st tissue head/neck DATE OF EXAM: 09/19/2019 COMPARISON: NONE CLINICAL HISTORY: swelling/mass left neck above dialysis catheter. Patient is receiving dialysis at t [facility]ang of exam. Palpable lump noticed just above dialysis port today. Painful per patient. TECHNIQUE/FINDINGS: Grayscale and color Doppler imaging were performed of palpable abnormality of the left neck. At the area of the palpable lump, there appears to be echogenic thrombus/clot surrounding the dialysis catheter. Unable to scan inferior to this area or along subclavian vein due to port IMPRESSION: Thrombus surrounding the proximal dialysis catheter in the internal jugular vein. Findin gs were relayed to the ordering physician's office by the hammerer tab directly after the examination. A Yellow level critical message alert has been initiated for Shantell Pérez via the [employer] Critical Results System on 09/19/2019 1:34 PM. This message alert has been sent to Shantell Pérez v ia the preferences provided by the clinician for the receipt of Radiology Critical Findings. Message ID [id number].
--- NOTE | 2019-09-19 13:40 | P.GSCN ---
History of Present Illness Consult date: 09/19/19 History of present illness: Patient is a 79-year-old male who was admitted with nausea, vomiting, and weakness with an elevation in temperature. Patient has a history of chronic stage IV kidney failure who is currently on dialysis Tuesdays, , and Wednesday. Patient has a right tunneled catheter for dialysis use that has been found to be the site of infection with positive blood cultures with staph aureus. Patient is scheduled to see Dr. Shafer this month to discuss possible fistulogram, has a left AV graft that has been clotted for at least the past 6-7 months. Patient has been seen by nephrology and infectious disease who request the permacatheter to be removed today following dialysis treatment. The patient has been on antibiotics since admission, and has been afebrile. Also notified that during dialysis treatment the patient complained of pain in the right side of the neck, with swelling above the catheter site. Review of Systems Review of systems completed, positive pertinent positive and negatives as reported in the HPI. Past Medical History Past Medical History: Coronary Artery Disease (CAD), Chest Pain / Angina, Heart Failure, GI Bleed, Hyperlipidemia, Hypertension, Myocardial Infarction ([place]), Pneumonia, Renal Disease, Vascular Disorder Additional Past Medical History / Comment(s): lower GI bleed, anemia, iron deficiency anemia, chronic kidney dx stage IV with dialysis , diverticulosis, colon polyp (removed), PVD , neck fx as a young person with seizures following last one years ago. Last Myocardial Infarction Date:: 2013 History of Any Multi-Drug Resistant Organisms: None Reported Past Surgical History: Heart Catheterization With Stent Additional Past Surgical History / Comment(s): 11/19/14 EGD with bx and Colonoscopy with polypectomy, bilateral cataract removal with lens implants, shunt L arm. Past Anesthesia/Blood Transfusion Reactions: No Reported Reaction Date of Last Stent Placement:: 2007 Past Psychological History: No Psychological Hx Reported Additional Psychological History / Comment(s): Pt resides with his michaelleSarai. Daughter manages his meds. He has a cane which he uses prn. He is independent with his ADLs. He drives a car. He has no home care agency. Smoking Status: Former smoker Past Alcohol Use History: None Reported Additional Past Alcohol Use History / Comment(s): Pt started smoking in 1954. Patient smokes 6-7 cigarettes a day. Past Drug Use History: None Reported - Past Family History Father Family Medical History: Myocardial Infarction ([place]) Additional Family Medical History / Comment(s): Father at age 59 of a [place] Mother Family Medical History: CVA/TIA Additional Family Medical History / Comment(s): Mother of a brain hemorrage. Medications and Allergies Home Medications Medication Instructions Recorded Confirmed Type Ipratropium-Albuterol Nebulize 3 ml INHALATION RT-QID #120 01/20/18 09/18/19 Rx [Duoneb 0.5 mg-3 mg/3 ml Soln] ampul.neb Atorvastatin [Lipitor] 40 mg PO DAILY 02/27/19 09/18/19 History Calcium Acetate [PhosLo] 667 mg PO BID 02/27/19 09/18/19 History Metoprolol Tartrate [Lopressor] 25 mg PO BID 02/27/19 09/18/19 History Awilda-Fred 0.8mg 0.8 mg PO DAILY 02/27/19 09/18/19 History amLODIPine [Norvasc] 10 mg PO DAILY 02/27/19 09/18/19 History hydrALAZINE HCL [Apresoline] 50 mg PO BID 02/27/19 09/18/19 History Lisinopril [Zestril] 10 mg PO DAILY 09/18/19 09/18/19 History Allergies Allergy/AdvReac Type Severity Reaction Status Date / Time No Known Allergies Allergy Verified 09/17/19 17:13 Surgical - Exam Vital Signs Temp Pulse Resp BP Pulse Ox 100.5 F H 109 H 18 207/81 94 L 09/17/19 17:10 09/17/19 17:10 09/17/19 17:10 09/17/19 17:10 09/17/19 17:10 General appearance: The patient is alert, oriented, in no acute distress. HET: Head is normocephalic and atraumatic. Neck: Supple, right side of neck with mild erythema and quarter sized firm soft tissue swelling palpated with TTP, above catheter site. Tunneled dialysis site intact without erythema, swelling, or drainage. Heart: S1 S2. Regular rate and rhythm. Lungs: No crackles or wheezes are heard. Extremities: Normal skin color and turgor. No cyanosis, rash, ulceration, clubbing, or edema. radial pulses 2/4 bilaterally Results - Labs 09/19/19 08:25 09/19/19 08:25 Abnormal Lab Results - Last 24 Hours (Table) 09/18/19 09/19/19 09/19/19 Range/Units 08:20 08:25 08:25 WBC 11.2 H (3.8-10.6) k/uL RBC 3.57 L (4.30-5.90) m/uL Hgb 11.2 L (13.0-17.5) gm/dL Hct 34.4 L (39.0-53.0) % Plt Count 134 L (150-450) k/uL Neutrophils # 8.7 H (1.3-7.7) k/uL BUN 64 H (9-20) mg/dL Creatinine 8.53 H* (0.66-1.25) mg/dL Glucose 176 H (74-99) mg/dL Calcium 7.9 L (8.4-10.2) mg/dL Hep Bs Antibody Reactive H (Non-Reactive) Microbiology - Last 24 Hours (Table) 09/18/19 16:25 Blood Culture Gram Stain - Preliminary Blood 09/18/19 16:25 Blood Culture - Final Blood 09/18/19 14:40 Blood Culture Gram Stain - Preliminary Blood 09/17/19 17:40 Blood Culture Gram Stain - Preliminary Blood Blood Culture - Preliminary Staphylococcus aureus 09/18/19 19:25 Urine Culture - Preliminary Urine,Clean Catch 09/18/19 14:40 Blood Culture - Final Blood Diabetes panel 09/19/19 Range/Units 08:25 Sodium 141 (137-145) mmol/L Potassium 3.9 (3.5-5.1) mmol/L Chloride 101 (98-107) mmol/L Carbon Dioxide 24 (22-30) mmol/L BUN 64 H (9-20) mg/dL Creatinine 8.53 H* (0.66-1.25) mg/dL Glucose 176 H (74-99) mg/dL Calcium 7.9 L (8.4-10.2) mg/dL Calcium panel 09/19/19 Range/Units 08:25 Calcium 7.9 L (8.4-10.2) mg/dL Pituitary panel 09/19/19 Range/Units 08:25 Sodium 141 (137-145) mmol/L Potassium 3.9 (3.5-5.1) mmol/L Chloride 101 (98-107) mmol/L Carbon Dioxide 24 (22-30) mmol/L BUN 64 H (9-20) mg/dL Creatinine 8.53 H* (0.66-1.25) mg/dL Glucose 176 H (74-99) mg/dL Calcium 7.9 L (8.4-10.2) mg/dL Adrenal panel 09/19/19 Range/Units 08:25 Sodium 141 (137-145) mmol/L Potassium 3.9 (3.5-5.1) mmol/L Chloride 101 (98-107) mmol/L Carbon Dioxide 24 (22-30) mmol/L BUN 64 H (9-20) mg/dL Creatinine 8.53 H* (0.66-1.25) mg/dL Glucose 176 H (74-99) mg/dL Calcium 7.9 L (8.4-10.2) mg/dL Assessment and Plan Assessment: Sepsis, + staph aureaus source tunneled dialysis catheter Chronic renal failure, stage IV on dialysis Left AV graft, clotted Plan: Discussed patient with Dr. Romeo. Patient is currently receiving dialysis, then plan is for Dr. Romeo to remove tunneled dialysis catheter. Stat ultrasound ordered of right-sided neck. Infectious disease to see patient. Continue recommended antibiotics per infectious disease. Continue with recommendations by nephrology. Thank you for this consultation and allowing us to participate in the plan of care during this hospitalization. The above dictated assessment and findings were discussed with Dr. Romeo. The impression and plan of care have been directed as dictated.
--- NOTE | 2019-09-19 16:57 | P.PN ---
Progress Note - Text Progress Note Date: 09/19/19 Please see associated consult note from nurse practitioner for consultation. Patient has been feeling general malaise the past few days and not himself, he was running a fever when he came here to the hospital. Initial workup and evaluation revealed positive blood cultures from his catheter site. He currently has no other access, is being planned that he is going to undergo with sounds like a brachial basilic fistula in the near future at at the [facility]. During his dialysis earlier today he was complaining of pain in his right neck. There was a lump identified, an ultrasound was ordered and shows thrombus at the level of the catheter itself. At this time the tunneled dialysis catheter was removed. It was cleansed with alcohol. 1% lidocaine plain was infiltrated. Blunt dissection was performed surrounding the area of the cuff. The catheter was removed. A significant purulent drainage. Pressure was held until hemostasis was adequate. A dressing was placed. Infected tunneled dialysis catheter Right internal jugular thrombus, catheter associated End-stage renal disease At this point the tunneled dialysis catheter was removed. We'll give him a line holiday at this point. I would hold off on placing an other tunneled dialysis catheter until blood cultures are negative 48 hours. In the meantime if he does need a temporary dialysis catheter will be available to place one. Given he has a thrombus, likely removing the catheter will be sufficient but we will initiate a heparin drip and repeat an ultrasound in a few days to evaluate if there is continued need for ongoing anticoagulation. This is all discussed with the family who was at the bedside. Everyone understands this seemingly on board with this plan
[2019-09-19] MEDS ORDERED: HEPARIN SODIUM,PORCINE 5,000 UNIT/ML 1 ML VIAL IV PRN (17:17)
--- NOTE | 2019-09-19 18:09 | P.PN ---
Subjective Patient had a permacath removed. Following ultrasound showed thrombus at the site patient's be heparinized. Patient has been evaluated by infectious disease and vascular surgeon and nephrology Objective - Vital Signs Vital signs: Vital Signs Temp 97.9 F 09/19/19 14:46 Pulse 100 09/19/19 16:40 Resp 16 09/19/19 16:40 BP 132/64 09/19/19 16:40 Pulse Ox 93 L 09/19/19 16:40 Intake & Output 09/18/19 09/19/19 09/19/19 18:59 06:59 18:59 Intake Total 700 50 650 Output Total 34 0 Balance 700 16 650 Intake: Intake, IV Titration 100 50 Amount Piperacillin-Tazobactam 2 100 .5 gm In Sodium Chloride 0.9% 100 ml @ 200 mls/hr IVPB ONCE STA Rx#: [id number] ceFAZolin 1,000 mg In 50 Sodium Chloride 0.9% 50 ml @ 100 mls/hr IVPB Q24HR [facility] Rx#:[id number] Oral 600 50 600 Output: Urine 34 Hemodialysis 0 Other: Voiding Method Toilet Toilet Toilet Urinal Urinal Urinal # Voids 3 - Constitutional General appearance: Present: mild distress - EENT Eyes: Present: PERRLA Ears: bilateral: normal - Neck Neck: Present: normal ROM - Respiratory Respiratory: bilateral: CTA - Cardiovascular Rhythm: regular - Gastrointestinal General gastrointestinal: Present: soft - Integumentary Integumentary: Present: normal - Neurologic Neurologic: Present: CNII-XII intact - Musculoskeletal Musculoskeletal: Present: generalized weakness - Psychiatric Psychiatric Comment(s): Patient sedated for pain - Labs CBC & Chem 7: 09/19/19 08:25 09/19/19 08:25 Labs: Abnormal Lab Results - Last 24 Hours (Table) 09/18/19 09/19/19 09/19/19 Range/Units 08:20 08:25 08:25 WBC 11.2 H (3.8-10.6) k/uL RBC 3.57 L (4.30-5.90) m/uL Hgb 11.2 L (13.0-17.5) gm/dL Hct 34.4 L (39.0-53.0) % Plt Count 134 L (150-450) k/uL Neutrophils # 8.7 H (1.3-7.7) k/uL BUN 64 H (9-20) mg/dL Creatinine 8.53 H* (0.66-1.25) mg/dL Glucose 176 H (74-99) mg/dL Calcium 7.9 L (8.4-10.2) mg/dL Hep Bs Antibody Reactive H (Non-Reactive) Microbiology - Last 24 Hours (Table) 09/18/19 16:25 Blood Culture Gram Stain - Preliminary Blood 09/18/19 14:40 Blood Culture Gram Stain - Preliminary Blood Blood Culture - Preliminary Presumptive Staph aureus 09/18/19 16:25 Blood Culture - Final Blood 09/17/19 17:40 Blood Culture Gram Stain - Preliminary Blood Blood Culture - Preliminary Staphylococcus aureus 09/18/19 19:25 Urine Culture - Preliminary Urine,Clean Catch 09/18/19 14:40 Blood Culture - Final Blood Assessment and Plan Plan: Assessment Sepsis secondary to permacath Permacath removed from is present at site Mental status changes metabolic encephalopathy Chronic renal failure on dialysis end-stage History of coronary disease with stents CA History of GI bleed Hypertension Hyperlipidemia Iron deficiency anemia Plan Continue consultation with nephrology infectious disease and vascular surgeon
[2019-09-19 19:04] LABS: Basophils # (A) 0.2 k/uL (0-0.2); Basophils % (A) 2 %; Eosinophils # (A) 0.1 k/uL (0-0.7); Eosinophils % (A) 1 %; HCT 34.4 % (39.0-53.0); Lymphocytes # (A) 0.6 k/uL (1.0-4.8); Lymphocytes % (A) 6 %; MCH 29.9 pg (25.0-35.0); MCV 93.4 fL (80.0-100.0); Mean Platelet Volume 10.8; Monocytes # (A) 0.5 k/uL (0-1.0); Monocytes % (A) 5 %; Neutrophils # (A) 8.2 k/uL (1.3-7.7); Neutrophils % (A) 82 %; Platelet Count 115 k/uL (150-450); RBC 3.68 m/uL (4.30-5.90); RDW 14.4 % (11.5-15.5)
[2019-09-19 19:15] LABS: INR 0.9 (<1.2); Partial Thromboplastin Time 26.8 sec (22.0-30.0)
[2019-09-19] MEDS: HEPARIN SOD,PORK IN 0.45% NACL 25,000 UNIT in 0.45% NACL 1 250ML.BAG IV SCH (19:41)
[2019-09-19] MEDS ORDERED: HEPARIN SODIUM,PORCINE 10,000 UNIT/ML 1 ML VIAL IV ONE (20:00)
--- NOTE | 2019-09-20 00:06 | PN ---
PROGRESS NOTE DATE OF SERVICE: 09/19/2019 REASON FOR FOLLOWUP VISIT: MSSA bacteremia secondary to PermCath infection. INTERVAL HISTORY: The patient is currently afebrile, has been breathing comfortably. The patient did denies having any chest pain, shortness of breath or cough. No nausea, no vomiting. No abdominal pain. No diarrhea. PHYSICAL EXAMINATION: Blood pressure 124/64 with a pulse of 100. Temperature 97.9. He is 93% on 2 L nasal cannula. General description is an elderly male up in the bed in no distress. Respiratory system: Unlabored breathing. Clear to auscultation anteriorly. Heart S1, S2. Regular rate and rhythm. Abdomen soft, no tenderness. LABS: Hemoglobin is 11, white count 10, BUN of 64, creatinine 8.53. Blood cultures 09/17 and 09/18, currently . DIAGNOSTIC IMPRESSION AND PLAN: Patient with MSSA bacteremia source is likely pulmonary catheter infection. The patient at this point covered with Cefazolin. He will need removal of this Perm-A- catheter, could not completely rule out this infection. This was discussed in detail with Nephrology. Blood cultures will be repeated daily to document clearance of bacteremia and continue supportive care. MMODL / IJN: [id number] /
[2019-09-20 08:10] LABS: HCT 32.9 % (39.0-53.0); HGB 10.7 gm/dL (13.0-17.5); MCHC 32.6 g/dL (31.0-37.0); MCV 94.8 fL (80.0-100.0); Mean Platelet Volume 10.7; Platelet Count 146 k/uL (150-450); RBC 3.47 m/uL (4.30-5.90); RDW 14.5 % (11.5-15.5); WBC 9.1 k/uL (3.8-10.6)
[2019-09-20 08:38] LABS: Calcium 7.9 mg/dL (8.4-10.2); Potassium 4.1 mmol/L (3.5-5.1)
[2019-09-20] MEDS: hydrALAZINE HCL 50 MG TAB PO SCH ×2 (08:39→21:41)
[2019-09-20] MEDS: METOPROLOL TARTRATE 25 MG TAB PO SCH ×2 (08:39→21:41)
[2019-09-20] MEDS: amLODIPine 10 MG TAB PO SCH (08:40)
[2019-09-20] MEDS: LISINOPRIL 2.5 MG TAB PO SCH (08:40)
[2019-09-20] MEDS: PANTOPRAZOLE 40 MG/10 ML VIAL IVP SCH (08:40)
[2019-09-20] MEDS: ATORVASTATIN 40 MG TAB PO SCH (08:40)
[2019-09-20 11:56] LABS: Eosinophils # (M) 0.09 k/uL (0-0.7); Lymphocytes # (M) 1.37 k/uL (1.0-4.8); Neutrophils # (M) 6.64 k/uL (1.3-7.7); Neutrophils % (M) 73 %; Nucleated Red Blood Cells 0 /100 WBC (0-0); Total Cells Counted 100
[2019-09-20 11:57] LABS: Poikilocytosis (M) Present
--- NOTE | 2019-09-20 12:08 | P.PN ---
Subjective Patient is seen in follow-up for end-stage renal disease. He is maintained on hemodialysis on Wednesday schedule. Patient presented with fever. Blood cultures positive for staph aureus. Denies chest pain or shortness of breath. Feels a little better today. Dialysis catheter removed September 19. Vital signs are stable. General: The patient appeared well nourished and normally developed. HEENT: Head exam is unremarkable. Neck is without jugular venous distension. LUNGS: Lungs are clear to auscultation and percussion. Breath sounds decreased. HEART: Rate and Rhythm are regular. First and second heart sounds normal. No mur murs, rubs or gallops. ABDOMEN: Abdominal exam reveals normal bowel sounds. Non-tender and non-dist ended. No evidence of peritonitis. EXTREMITITES: No clubbing, cyanosis, or edema. Objective - Vital Signs Vital signs: Vital Signs Temp 98.3 F 09/20/19 08:56 Pulse 89 09/20/19 04:27 Resp 18 09/20/19 04:27 BP 134/67 09/20/19 04:27 Pulse Ox 96 09/20/19 04:27 Intake & Output 09/19/19 09/20/19 09/20/19 18:59 06:59 18:59 Intake Total 650 304.014 76.383 Output Total 0 Balance 650 304.014 76.383 Intake: Intake, IV Titration 50 64.014 76.383 Amount Heparin Sod,Pork in 0.45% 64.014 76.383 NaCl 25,000 unit In 0.45 % NaCl 1 250ml.bag @ 18 UNITS/KG/HR 13.064 mls/hr IV .Q19H9M [facility] Rx#: [id number] ceFAZolin 1,000 mg In 50 Sodium Chloride 0.9% 50 ml @ 100 mls/hr IVPB Q24HR [facility] Rx#:[id number] Oral 600 240 Output: Hemodialysis 0 Other: Voiding Method Toilet Toilet Toilet Urinal Urinal Urinal # Voids 2 - Labs CBC & Chem 7: 09/20/19 06:56 09/20/19 06:56 Labs: Abnormal Lab Results - Last 24 Hours (Table) 09/19/19 09/19/19 09/20/19 Range/Units 18:44 22:46 06:56 RBC 3.68 L 3.47 L (4.30-5.90) m/uL Hgb 11.0 L 10.7 L (13.0-17.5) gm/dL Hct 34.4 L 32.9 L (39.0-53.0) % Plt Count 115 L 146 L (150-450) k/uL Neutrophils # 8.2 H (1.3-7.7) k/uL Lymphocytes # 0.6 L (1.0-4.8) k/uL APTT 115.1 H* (22.0-30.0) sec BUN (9-20) mg/dL Creatinine (0.66-1.25) mg/dL Calcium (8.4-10.2) mg/dL 09/20/19 09/20/19 Range/Units 06:56 06:56 RBC (4.30-5.90) m/uL Hgb (13.0-17.5) gm/dL Hct (39.0-53.0) % Plt Count (150-450) k/uL Neutrophils # (1.3-7.7) k/uL Lymphocytes # (1.0-4.8) k/uL APTT 62.0 H (22.0-30.0) sec BUN 36 H (9-20) mg/dL Creatinine 5.74 H (0.66-1.25) mg/dL Calcium 7.9 L (8.4-10.2) mg/dL Microbiology - Last 24 Hours (Table) 09/18/19 14:40 Blood Culture Gram Stain - Preliminary Blood Blood Culture - Preliminary Staphylococcus aureus 09/17/19 17:40 Blood Culture Gram Stain - Final Blood Blood Culture - Final Staphylococcus aureus 09/18/19 19:25 Urine Culture - Final Urine,Clean Catch 09/18/19 16:25 Blood Culture Gram Stain - Preliminary Blood Blood Culture - Preliminary Presumptive Staph aureus 09/18/19 16:25 Blood Culture - Final Blood Assessment and Plan Plan: Assessment: 1. End-stage renal disease maintained on hemodialysis on Wednesday schedule via permacath. 2. Clotted fistula. He is scheduled to see vascular surgery outpatient for intervention. 3. Sepsis. Influenza screen negative. Source is permacath - September 19. No acute changes noted on abdominal CAT scan. Maintained on IV antibiotics. 4. Hypertension with chronic kidney disease. Controlled. 5. Left IJ thrombus related to permacath. Maintain on heparin drip. Vascular surgery following. Plan: Monitor for clearance of bacteremia. Will need new access placed once the infection cleared. Continue to monitor electrolytes closely.
--- NOTE | 2019-09-20 12:24 | P.PN ---
Subjective Progress Note Date: 09/20/19 Patient seen and evaluated today lying in bed. Patient remains afebrile. Patient denies any pain at this time, reports some tenderness in the right neck with palpation. The patient denies any shortness of breath or chest pain. Patient had ultrasound yesterday which revealed a thrombus at the distal portion of the dialysis catheter. After dialysis was completed the catheter was removed per Dr. Romeo at the bedside, once the bleeding was controlled he was then started yesterday evening on heparin drip. Objective - Vital Signs Vital signs: Vital Signs Temp 98.3 F 09/20/19 08:56 Pulse 89 09/20/19 04:27 Resp 18 09/20/19 04:27 BP 134/67 09/20/19 04:27 Pulse Ox 96 09/20/19 04:27 Intake & Output 09/19/19 09/20/19 09/20/19 18:59 06:59 18:59 Intake Total 650 304.014 76.383 Output Total 0 Balance 650 304.014 76.383 Intake: Intake, IV Titration 50 64.014 76.383 Amount Heparin Sod,Pork in 0.45% 64.014 76.383 NaCl 25,000 unit In 0.45 % NaCl 1 250ml.bag @ 18 UNITS/KG/HR 13.064 mls/hr IV .Q19H9M [facility] Rx#: [id number] ceFAZolin 1,000 mg In 50 Sodium Chloride 0.9% 50 ml @ 100 mls/hr IVPB Q24HR [facility] Rx#:[id number] Oral 600 240 Output: Hemodialysis 0 Other: Voiding Method Toilet Toilet Urinal Urinal # Voids 2 - Exam General appearance: The patient is alert, oriented, in no acute distress. HET: Head is normocephalic and atraumatic. Neck: Right side of neck without swelling or redness, peas sized lump palpated with mild TTP. No signs of bleeding or drainage from previous catheter site. Heart: S1 S2. Regular rate and rhythm. Lungs: No crackles or wheezes are heard. Extremities: Normal skin color and turgor. No cyanosis, rash, ulceration, clubbing, or edema. Radial pulses are 2/4 bilaterally. Neurological: No focal deficits. - Labs CBC & Chem 7: 09/20/19 06:56 09/20/19 06:56 Labs: Abnormal Lab Results - Last 24 Hours (Table) 09/19/19 09/19/19 09/20/19 Range/Units 18:44 22:46 06:56 RBC 3.68 L 3.47 L (4.30-5.90) m/uL Hgb 11.0 L 10.7 L (13.0-17.5) gm/dL Hct 34.4 L 32.9 L (39.0-53.0) % Plt Count 115 L 146 L (150-450) k/uL Neutrophils # 8.2 H (1.3-7.7) k/uL Lymphocytes # 0.6 L (1.0-4.8) k/uL APTT 115.1 H* (22.0-30.0) sec BUN (9-20) mg/dL Creatinine (0.66-1.25) mg/dL Calcium (8.4-10.2) mg/dL 09/20/19 09/20/19 Range/Units 06:56 06:56 RBC (4.30-5.90) m/uL Hgb (13.0-17.5) gm/dL Hct (39.0-53.0) % Plt Count (150-450) k/uL Neutrophils # (1.3-7.7) k/uL Lymphocytes # (1.0-4.8) k/uL APTT 62.0 H (22.0-30.0) sec BUN 36 H (9-20) mg/dL Creatinine 5.74 H (0.66-1.25) mg/dL Calcium 7.9 L (8.4-10.2) mg/dL Microbiology - Last 24 Hours (Table) 09/18/19 14:40 Blood Culture Gram Stain - Preliminary Blood Blood Culture - Preliminary Staphylococcus aureus 09/17/19 17:40 Blood Culture Gram Stain - Final Blood Blood Culture - Final Staphylococcus aureus 09/18/19 19:25 Urine Culture - Final Urine,Clean Catch 09/18/19 16:25 Blood Culture Gram Stain - Preliminary Blood Blood Culture - Preliminary Presumptive Staph aureus 09/18/19 16:25 Blood Culture - Final Blood Assessment and Plan Assessment: Infected tunneled dialysis catheter Right internal jugular thrombus, catheter associated Chronic renal failure, stage IV on dialysis Plan: Discussed patient with Dr. Romeo. We'll repeat ultrasound of head and neck tomorrow. Await blood culture results, once clear the plan is for a new dialysis catheter placement. Continue recommended antibiotics per infectious disease. Continue with recommendations by nephrology. The above dictated assessment and findings were discussed with Dr. Romeo. The impression and plan of care have been directed as dictated.
--- NOTE | 2019-09-20 13:45 | P.PN ---
Subjective The patient appears improved CBC improved a white count patient has been evaluated by nephrology and infectious disease. Plan is to on managed to sepsis and then M another catheter inserted for dialysis Objective - Vital Signs Vital signs: Vital Signs Temp 98.2 F 09/20/19 12:14 Pulse 65 09/20/19 12:14 Resp 16 09/20/19 12:14 BP 124/60 09/20/19 12:14 Pulse Ox 92 L 09/20/19 12:14 Intake & Output 09/19/19 09/20/19 09/20/19 18:59 06:59 18:59 Intake Total 650 304.014 76.383 Output Total 0 Balance 650 304.014 76.383 Intake: Intake, IV Titration 50 64.014 76.383 Amount Heparin Sod,Pork in 0.45% 64.014 76.383 NaCl 25,000 unit In 0.45 % NaCl 1 250ml.bag @ 18 UNITS/KG/HR 13.064 mls/hr IV .Q19H9M [facility] Rx#: [id number] ceFAZolin 1,000 mg In 50 Sodium Chloride 0.9% 50 ml @ 100 mls/hr IVPB Q24HR [facility] Rx#:[id number] Oral 600 240 Output: Hemodialysis 0 Other: Voiding Method Toilet Toilet Toilet Urinal Urinal Urinal # Voids 2 - Constitutional General appearance: Present: mild distress - EENT Eyes: Present: PERRLA Ears: bilateral: normal - Neck Neck: Present: normal ROM - Respiratory Respiratory: bilateral: CTA - Cardiovascular Rhythm: regular - Integumentary Integumentary: Present: normal - Neurologic Neurologic: Present: CNII-XII intact - Psychiatric Psychiatric: Present: A&O x's 3 - Labs CBC & Chem 7: 09/20/19 06:56 09/20/19 06:56 Labs: Abnormal Lab Results - Last 24 Hours (Table) 09/19/19 09/19/19 09/20/19 Range/Units 18:44 22:46 06:56 RBC 3.68 L 3.47 L (4.30-5.90) m/uL Hgb 11.0 L 10.7 L (13.0-17.5) gm/dL Hct 34.4 L 32.9 L (39.0-53.0) % Plt Count 115 L 146 L (150-450) k/uL Neutrophils # 8.2 H (1.3-7.7) k/uL Lymphocytes # 0.6 L (1.0-4.8) k/uL APTT 115.1 H* (22.0-30.0) sec BUN (9-20) mg/dL Creatinine (0.66-1.25) mg/dL Calcium (8.4-10.2) mg/dL 09/20/19 09/20/19 Range/Units 06:56 06:56 RBC (4.30-5.90) m/uL Hgb (13.0-17.5) gm/dL Hct (39.0-53.0) % Plt Count (150-450) k/uL Neutrophils # (1.3-7.7) k/uL Lymphocytes # (1.0-4.8) k/uL APTT 62.0 H (22.0-30.0) sec BUN 36 H (9-20) mg/dL Creatinine 5.74 H (0.66-1.25) mg/dL Calcium 7.9 L (8.4-10.2) mg/dL Microbiology - Last 24 Hours (Table) 09/18/19 14:40 Blood Culture Gram Stain - Preliminary Blood Blood Culture - Preliminary Staphylococcus aureus 09/17/19 17:40 Blood Culture Gram Stain - Final Blood Blood Culture - Final Staphylococcus aureus 09/18/19 19:25 Urine Culture - Final Urine,Clean Catch 09/18/19 16:25 Blood Culture Gram Stain - Preliminary Blood Blood Culture - Preliminary Presumptive Staph aureus 09/18/19 16:25 Blood Culture - Final Blood Assessment and Plan Plan: Assessment Sepsis secondary of permacatheter Mental status changes acute metabolic encephalopathy secondary to sepsis Chronic renal failure end-stage on hemodialysis history of coronary disease with stents and VT Congestive heart failure mild systolic dysfunction EF of 40-45% Thrombus from catheter removal Hypertension hyperlipidemia history of lower GI bleed I deficiency anemia Plan Continue consultation with infectious disease Continue consultation with nephrology Catheter reinsertion after sepsis resolved
--- NOTE | 2019-09-20 21:15 | PN ---
PROGRESS NOTE DATE OF SERVICE: 09/20/2019 REASON FOR FOLLOWUP: MRSA bacteremia secondary to PermCath infection. INTERVAL HISTORY: The patient is currently afebrile. Patient has been breathing comfortably. The patient denies having any chest pain, shortness of breath or cough. No further nausea, vomiting or diarrhea. PHYSICAL EXAMINATION: Blood pressure is 124/60 with a pulse of 55. Temperature is 198.2. He is 92% on room air. General description is an elderly male up in the bed in no distress. Respiratory system: Unlabored breathing. Clear to auscultation anteriorly. Heart S1, S2 regular rate and rhythm. ABDOMEN: Soft. No tenderness. EXTREMITIES are no edema of the feet. LABS: Hemoglobin is 10.7, white count 9.11. BUN of 36, creatinine 5.74. Blood cultures from September 18 positive. DIAGNOSTIC IMPRESSION AND PLAN: Patient with MSSA bacteremia secondary to PermCath that has been discontinued. The patient will continue with cefazolin. Blood culture repeated today and reviewed tomorrow once his blood culture negative at 72 hours, he will be able to get a new PermACatheter catheter. This was discussed in detail with the surgeon. Continue supportive care. MMODL / IJN: [id number] /
[2019-09-20] MEDS: HEPARIN SOD,PORK IN 0.45% NACL 25,000 UNIT in 0.45% NACL 1 250ML.BAG IV SCH (21:48)
--- NOTE | 2019-09-21 08:32 | US ---
EXAMINATION TYPE: US venous doppler duplex UE RT DATE OF EXAM: 09/21/2019 COMPARISON: Neck ultrasound 2 days earlier. CLINICAL HISTORY: re-evaluate right venous thrombus . SIDE PERFORMED: Right Right Arm: Rt IJV positive for DVT. There is mild peripheral flow but there is still clot in the IJV, remainder of vessels appear normal. Grayscale, color doppler, spectral doppler imaging performed of the deep veins of the right upper ext remity. Confirmation of acute DVT extending more cranially into the right internal jugular vein which is expa nded with hyperechoic material and noncompressible. The proximal superficial vessels extending into t he right upper extremity appear patent. IMPRESSION: Extension of acute occlusive DVT into the right internal jugular vein without right upper extremity involvement.
[2019-09-21] MEDS: LISINOPRIL 2.5 MG TAB PO SCH (08:59)
[2019-09-21] MEDS: PANTOPRAZOLE 40 MG TABLET PO SCH (08:59)
[2019-09-21] MEDS: ATORVASTATIN 40 MG TAB PO SCH (08:59)
[2019-09-21] MEDS: amLODIPine 10 MG TAB PO SCH (08:59)
[2019-09-21] MEDS: hydrALAZINE HCL 50 MG TAB PO SCH ×2 (08:59→21:22)
[2019-09-21] MEDS: METOPROLOL TARTRATE 25 MG TAB PO SCH ×2 (08:59→21:23)
[2019-09-21 09:35] LABS: Basophils # (A) 0.1 k/uL (0-0.2); Basophils % (A) 1 %; Eosinophils # (A) 0.2 k/uL (0-0.7); Eosinophils % (A) 3 %; HCT 32.9 % (39.0-53.0); HGB 10.8 gm/dL (13.0-17.5); Lymphocytes # (A) 1.2 k/uL (1.0-4.8); Lymphocytes % (A) 16 %; MCHC 32.9 g/dL (31.0-37.0); MCV 94.3 fL (80.0-100.0); Mean Platelet Volume 10.8; Monocytes # (A) 0.5 k/uL (0-1.0); Monocytes % (A) 7 %; Neutrophils # (A) 5.1 k/uL (1.3-7.7); Neutrophils % (A) 69 %; Platelet Count 142 k/uL (150-450); RBC 3.49 m/uL (4.30-5.90); RDW 14.2 % (11.5-15.5); WBC 7.4 k/uL (3.8-10.6)
[2019-09-21 10:32] LABS: Calcium 7.7 mg/dL (8.4-10.2); Potassium 3.7 mmol/L (3.5-5.1)
--- NOTE | 2019-09-21 10:38 | P.PN ---
Subjective Patient is seen in follow-up for end-stage renal disease. He is maintained on hemodialysis on Wednesday schedule. Patient presented with fever. Blood cultures positive for staph aureus. Denies chest pain or shortness of breath. Feels a little better today. Dialysis catheter removed September 19. He has been ambulating. No active complaints. Vital signs are stable. General: The patient appeared well nourished and normally developed. HEENT: Head exam is unremarkable. Neck is without jugular venous distension. LUNGS: Lungs are clear to auscultation and percussion. Breath sounds decreased. HEART: Rate and Rhythm are regular. First and second heart sounds normal. No murmurs, rubs or gallops. ABDOMEN: Abdominal exam reveals normal bowel sounds. Non-tender and non- distended. No evidence of peritonitis. EXTREMITITES: No clubbing, cyanosis, or edema. Objective - Vital Signs Vital signs: Vital Signs Temp 98.2 F 09/21/19 04:53 Pulse 68 09/21/19 04:53 Resp 20 09/21/19 04:53 BP 130/59 09/21/19 04:53 Pulse Ox 94 L 09/21/19 04:53 Intake & Output 09/20/19 09/21/19 09/21/19 18:59 06:59 18:59 Intake Total 885.986 132.628 Balance 885.986 132.628 Intake: Intake, IV Titration 285.986 132.628 Amount Heparin Sod,Pork in 0.45% 185.986 132.628 NaCl 25,000 unit In 0.45 % NaCl 1 250ml.bag @ 18 UNITS/KG/HR 13.064 mls/hr IV .Q19H9M [facility] Rx#: [id number] ceFAZolin 1,000 mg In 100 Sodium Chloride 0.9% 50 ml @ 100 mls/hr IVPB Q24HR [facility] Rx#:[id number] Oral 600 Other: Voiding Method Toilet Toilet Urinal Urinal # Voids 1 1 - Labs CBC & Chem 7: 09/21/19 08:09 09/20/19 06:56 Labs: Abnormal Lab Results - Last 24 Hours (Table) 09/21/19 09/21/19 Range/Units 08:09 08:09 RBC 3.49 L (4.30-5.90) m/uL Hgb 10.8 L (13.0-17.5) gm/dL Hct 32.9 L (39.0-53.0) % Plt Count 142 L (150-450) k/uL APTT 41.6 H (22.0-30.0) sec Microbiology - Last 24 Hours (Table) 09/18/19 16:25 Blood Culture Gram Stain - Final Blood Blood Culture - Final Staphylococcus aureus 09/20/19 06:56 Blood Culture Gram Stain - Preliminary Blood 09/20/19 06:56 Blood Culture - Final Blood 09/18/19 14:40 Blood Culture Gram Stain - Final Blood Blood Culture - Final Staphylococcus aureus 09/17/19 17:40 Blood Culture Gram Stain - Final Blood Blood Culture - Final Staphylococcus aureus Assessment and Plan Plan: Assessment: 1. End-stage renal disease maintained on hemodialysis on Wednesday schedule via permacath. 2. Clotted fistula. He is scheduled to see vascular surgery outpatient for intervention. 3. Sepsis. Influenza screen negative. Source is permacath - removed September 19. No acute changes noted on abdominal CAT scan. Maintained on IV antibiotics. 4. Hypertension with chronic kidney disease. Controlled. 5. Left IJ thrombus related to permacath. Maintain on heparin drip. Vascular surgery following. Plan: Monitor for clearance of bacteremia. Will need new access placed once the infection cleared - will discuss with infectious disease. Continue to monitor electrolytes closely. No urgent need for renal replacement therapy today.
--- NOTE | 2019-09-21 12:40 | P.PN ---
Subjective Patient resting comfortably in bed without complaint. Ultrasound shows thrombus right internal jugular. Patient being treated by nephrology infectious disease and vascular surgeon Objective - Vital Signs Vital signs: Vital Signs Temp 97.8 F 09/21/19 12:00 Pulse 62 09/21/19 12:00 Resp 17 09/21/19 12:00 BP 128/50 09/21/19 12:00 Pulse Ox 95 09/21/19 12:00 Intake & Output 09/20/19 09/21/19 09/21/19 18:59 06:59 18:59 Intake Total 885.986 132.628 Balance 885.986 132.628 Intake: Intake, IV Titration 285.986 132.628 Amount Heparin Sod,Pork in 0.45% 185.986 132.628 NaCl 25,000 unit In 0.45 % NaCl 1 250ml.bag @ 18 UNITS/KG/HR 13.064 mls/hr IV .Q19H9M [facility] Rx#: [id number] ceFAZolin 1,000 mg In 100 Sodium Chloride 0.9% 50 ml @ 100 mls/hr IVPB Q24HR [facility] Rx#:[id number] Oral 600 Other: Voiding Method Toilet Toilet Toilet Urinal Urinal Urinal # Voids 1 1 - Constitutional General appearance: Present: mild distress - EENT Eyes: Present: PERRLA Ears: bilateral: normal - Neck Neck: Present: normal ROM - Respiratory Respiratory: negative: CTA - Cardiovascular Rhythm: regular - Gastrointestinal General gastrointestinal: Present: soft - Integumentary Integumentary: Present: normal - Neurologic Neurologic: Present: CNII-XII intact - Musculoskeletal Musculoskeletal: Present: generalized weakness - Psychiatric Psychiatric: Present: A&O x's 3, appropriate affect, intact judgment & insight - Labs CBC & Chem 7: 09/21/19 08:09 09/21/19 08:09 Labs: Abnormal Lab Results - Last 24 Hours (Table) 09/21/19 09/21/19 09/21/19 Range/Units 08:09 08:09 08:09 RBC 3.49 L (4.30-5.90) m/uL Hgb 10.8 L (13.0-17.5) gm/dL Hct 32.9 L (39.0-53.0) % Plt Count 142 L (150-450) k/uL APTT 41.6 H (22.0-30.0) sec BUN 48 H (9-20) mg/dL Creatinine 7.88 H* (0.66-1.25) mg/dL Glucose 119 H (74-99) mg/dL Calcium 7.7 L (8.4-10.2) mg/dL Microbiology - Last 24 Hours (Table) 09/20/19 06:56 Blood Culture Gram Stain - Preliminary Blood 09/18/19 16:25 Blood Culture Gram Stain - Final Blood Blood Culture - Final Staphylococcus aureus 09/20/19 06:56 Blood Culture - Final Blood 09/18/19 14:40 Blood Culture Gram Stain - Final Blood Blood Culture - Final Staphylococcus aureus 09/17/19 17:40 Blood Culture Gram Stain - Final Blood Blood Culture - Final Staphylococcus aureus Assessment and Plan Plan: Assessment Sepsis secondary to permacath positive blood cultures Mental status changes secondary to sepsis acute metabolic encephalopathy End-stage renal disease on hemodialysis History of coronary disease with stent History of congestive heart failure mild systolic dysfunction with EF of 40-45% Thrombus to right internal jugular from permacath permacath removal History of GI bleed Hypertension Hyperlipidemia History of iron deficiency anemia Plan Infectious disease treating sepsis will need new access for dialysis after sepsis cleared Continue consultation with nephrology continue consultation with the vascular surgeon
--- NOTE | 2019-09-21 14:55 | P.PN ---
<Shantell Pérez - Last Filed: 09/21/19 14:48> Subjective Progress Note Date: 09/21/19 Patient seen and evaluated today lying in bed. Patient remains afebrile. Patient denies any pain at this time, reports some tenderness in the right neck with palpation. The patient denies any shortness of breath or chest pain. P manish had venous doppler duplex of right upper extremity which shows extension of acute occlusive DVT in the right internal jugular vein without right upper extremity involvement. The patient was tentatively scheduled for the tunneled dialysis catheter with Dr. Romeo tomorrow, however at this time blood cultures are showing gram-positive cocci in clusters. Objective - Vital Signs Vital signs: Vital Signs Temp 97.8 F 09/21/19 12:00 Pulse 62 09/21/19 12:00 Resp 17 09/21/19 12:00 BP 128/50 09/21/19 12:00 Pulse Ox 95 09/21/19 12:00 Intake & Output 09/20/19 09/21/19 09/21/19 18:59 06:59 18:59 Intake Total 885.986 132.628 Balance 885.986 132.628 Intake: Intake, IV Titration 285.986 132.628 Amount Heparin Sod,Pork in 0.45% 185.986 132.628 NaCl 25,000 unit In 0.45 % NaCl 1 250ml.bag @ 18 UNITS/KG/HR 13.064 mls/hr IV .Q19H9M [facility] Rx#: [id number] ceFAZolin 1,000 mg In 100 Sodium Chloride 0.9% 50 ml @ 100 mls/hr IVPB Q24HR [facility] Rx#:[id number] Oral 600 Other: Voiding Method Toilet Toilet Toilet Urinal Urinal Urinal # Voids 1 1 - Exam General appearance: The patient is alert, oriented, in no acute distress. HET: Head is normocephalic and atraumatic. Neck: Right side of neck without swelling or redness. No signs of bleeding or drainage from previous catheter site. Heart: S1 S2. Regular rate and rhythm. Lungs: No crackles or wheezes are heard. Extremities: Normal skin color and turgor. No cyanosis, rash, ulceration, clubbing, or edema. Radial pulses are 2/4 bilaterally. Neurological: No focal deficits. - Labs CBC & Chem 7: 09/21/19 08:09 09/21/19 08:09 Labs: Abnormal Lab Results - Last 24 Hours (Table) 09/21/19 09/21/19 09/21/19 Range/Units 08:09 08:09 08:09 RBC 3.49 L (4.30-5.90) m/uL Hgb 10.8 L (13.0-17.5) gm/dL Hct 32.9 L (39.0-53.0) % Plt Count 142 L (150-450) k/uL APTT 41.6 H (22.0-30.0) sec BUN 48 H (9-20) mg/dL Creatinine 7.88 H* (0.66-1.25) mg/dL Glucose 119 H (74-99) mg/dL Calcium 7.7 L (8.4-10.2) mg/dL Microbiology - Last 24 Hours (Table) 09/20/19 06:56 Blood Culture Gram Stain - Preliminary Blood 09/18/19 16:25 Blood Culture Gram Stain - Final Blood Blood Culture - Final Staphylococcus aureus 09/20/19 06:56 Blood Culture - Final Blood 09/18/19 14:40 Blood Culture Gram Stain - Final Blood Blood Culture - Final Staphylococcus aureus Assessment and Plan Assessment: Infected tunneled dialysis catheter Right internal jugular thrombus, catheter associated Chronic renal failure, stage IV on dialysis Plan: Discussed patient with Dr. Romeo. Reviewed venous Doppler results with Dr. Romeo. Will hold off on tunneled dialysis catheter at this time for final results on blood cultures. Continue recommended antibiotics per infectious disease. Continue with recommendations by nephrology. The above dictated assessment and findings were discussed with Dr. Romeo. The impression and plan of care have been directed as dictated. <Janet Romeo - Last Filed: 09/21/19 17:53> Objective - Vital Signs Vital signs: Vital Signs Temp 97.8 F 09/21/19 12:00 Pulse 62 09/21/19 12:00 Resp 17 09/21/19 12:00 BP 128/50 09/21/19 12:00 Pulse Ox 95 09/21/19 12:00 Intake & Output 09/20/19 09/21/19 09/21/19 18:59 06:59 18:59 Intake Total 885.986 182.628 Balance 885.986 182.628 Intake: Intake, IV Titration 285.986 182.628 Amount Heparin Sod,Pork in 0.45% 185.986 132.628 NaCl 25,000 unit In 0.45 % NaCl 1 250ml.bag @ 18 UNITS/KG/HR 13.064 mls/hr IV .Q19H9M [facility] Rx#: [id number] ceFAZolin 1,000 mg In 100 50 Sodium Chloride 0.9% 50 ml @ 100 mls/hr IVPB Q24HR [facility] Rx#:[id number] Oral 600 Other: Voiding Method Toilet Toilet Toilet Urinal Urinal Urinal # Voids 1 1 - Labs CBC & Chem 7: 09/21/19 08:09 09/21/19 08:09 Labs: Abnormal Lab Results - Last 24 Hours (Table) 09/21/19 09/21/19 09/21/19 Range/Units 08:09 08:09 08:09 RBC 3.49 L (4.30-5.90) m/uL Hgb 10.8 L (13.0-17.5) gm/dL Hct 32.9 L (39.0-53.0) % Plt Count 142 L (150-450) k/uL APTT 41.6 H (22.0-30.0) sec BUN 48 H (9-20) mg/dL Creatinine 7.88 H* (0.66-1.25) mg/dL Glucose 119 H (74-99) mg/dL Calcium 7.7 L (8.4-10.2) mg/dL 09/21/19 Range/Units 15:55 RBC (4.30-5.90) m/uL Hgb (13.0-17.5) gm/dL Hct (39.0-53.0) % Plt Count (150-450) k/uL APTT 70.2 H (22.0-30.0) sec BUN (9-20) mg/dL Creatinine (0.66-1.25) mg/dL Glucose (74-99) mg/dL Calcium (8.4-10.2) mg/dL Microbiology - Last 24 Hours (Table) 09/20/19 06:56 Blood Culture Gram Stain - Preliminary Blood 09/18/19 16:25 Blood Culture Gram Stain - Final Blood Blood Culture - Final Staphylococcus aureus 09/20/19 06:56 Blood Culture - Final Blood 09/18/19 14:40 Blood Culture Gram Stain - Final Blood Blood Culture - Final Staphylococcus aureus Assessment and Plan Plan: at this time blood cultures remain positive therefore no tunneled dialysis catheter. Continue to watch electrolytes and need for dialysis per nephrology. He underwent a repeat ultrasound of his upper extremities and was found to have continued thrombus in his right internal jugular. This time maintain anticoagulation. We will transition to oral anticoagulation upon discharge
--- NOTE | 2019-09-21 20:47 | PN ---
PROGRESS NOTE DATE OF SERVICE: 09/21/2019 REASON FOR FOLLOWUP: MSSA bacteremia secondary to PermCath infection. INTERVAL HISTORY: The patient is currently afebrile. Patient is breathing comfortably. Denies having any chest pain, shortness of breath or cough. No nausea, vomiting. No abdominal pain and no diarrhea. PHYSICAL EXAMINATION: Blood pressure is 122/50 with a pulse of 62, temperature of 97.8. He is 95% on room air. General description is an elderly male lying in bed in no distress. Respiratory system: Unlabored breathing. Clear to auscultation anteriorly. Heart S1, S2. Regular rate and rhythm. Abdomen soft, no tenderness. LABS: Hemoglobin is 10.1, white count 7.4, BUN of 42, creatinine 7.88. Blood cultures from yesterday positives . IMPRESSION/PLAN: Patient with MSSA bacteremia, has been discontinued. Blood culture from yesterday positive. Blood cultures will be repeated today. We will have to make sure those are negative at 72 hours before placing another PermACatheter. Blood cultures will be repeated tomorrow morning as well and continue supportive care. MMODL / IJN: [id number] /
[2019-09-21] MEDS: HEPARIN SOD,PORK IN 0.45% NACL 25,000 UNIT in 0.45% NACL 1 250ML.BAG IV SCH (22:26)
[2019-09-22] MEDS: hydrALAZINE HCL 50 MG TAB PO SCH ×2 (08:28→21:36)
[2019-09-22] MEDS: PANTOPRAZOLE 40 MG TABLET PO SCH (08:28)
[2019-09-22] MEDS: amLODIPine 10 MG TAB PO SCH (08:28)
[2019-09-22] MEDS: ATORVASTATIN 40 MG TAB PO SCH (08:28)
[2019-09-22] MEDS: LISINOPRIL 2.5 MG TAB PO SCH (08:28)
[2019-09-22] MEDS: METOPROLOL TARTRATE 25 MG TAB PO SCH ×2 (08:28→20:31)
[2019-09-22 08:43] LABS: Basophils # (A) 0.1 k/uL (0-0.2); Basophils % (A) 1 %; Eosinophils # (A) 0.3 k/uL (0-0.7); Eosinophils % (A) 4 %; HCT 33.2 % (39.0-53.0); HGB 10.6 gm/dL (13.0-17.5); Lymphocytes # (A) 1.4 k/uL (1.0-4.8); Lymphocytes % (A) 16 %; MCH 30.5 pg (25.0-35.0); MCV 95.2 fL (80.0-100.0); Mean Platelet Volume 10.6; Monocytes # (A) 0.5 k/uL (0-1.0); Monocytes % (A) 6 %; Neutrophils % (A) 70 %; Platelet Count 161 k/uL (150-450); RBC 3.48 m/uL (4.30-5.90); RDW 14.4 % (11.5-15.5); WBC 8.5 k/uL (3.8-10.6)
[2019-09-22 09:24] LABS: Calcium 7.4 mg/dL (8.4-10.2)
[2019-09-22] MEDS: HEPARIN SOD,PORK IN 0.45% NACL 25,000 UNIT in 0.45% NACL 1 250ML.BAG IV SCH ×2 (10:51→21:47)
--- NOTE | 2019-09-22 11:05 | P.PN ---
Subjective Patient is seen in follow-up for end-stage renal disease. He is maintained on hemodialysis on Wednesday schedule. Patient presented with fever. Blood cultures positive for staph aureus. Denies chest pain or shortness of breath.. Dialysis catheter removed September 19. He has been ambulating. No active complaints. Last hemodialysis was on Wednesday. Vital signs are stable. General: The patient appeared well nourished and normally developed. HEENT: Head exam is unremarkable. Neck is without jugular venous distension. LUNGS: Lungs are clear to auscultation and percussion. Breath sounds decreased. HEART: Rate and Rhythm are regular. First and second heart sounds normal. No murmurs, rubs or gallops. ABDOMEN: Abdominal exam reveals normal bowel sounds. Non-tender and non- distended. No evidence of peritonitis. EXTREMITITES: No clubbing, cyanosis, or edema. Objective - Vital Signs Vital signs: Vital Signs Temp 97.8 F 09/22/19 05:00 Pulse 65 09/22/19 05:00 Resp 18 09/22/19 05:00 BP 126/56 09/22/19 05:00 Pulse Ox 96 09/22/19 05:00 Intake & Output 09/21/19 09/22/19 09/22/19 18:59 06:59 18:59 Intake Total 182.628 707.372 142.504 Balance 182.628 707.372 142.504 Weight 75.5 kg Intake: Intake, IV Titration 182.628 117.372 142.504 Amount Heparin Sod,Pork in 0.45% 132.628 117.372 142.504 NaCl 25,000 unit In 0.45 % NaCl 1 250ml.bag @ 18 UNITS/KG/HR 13.064 mls/hr IV .Q19H9M [facility] Rx#: [id number] ceFAZolin 1,000 mg In 50 Sodium Chloride 0.9% 50 ml @ 100 mls/hr IVPB Q24HR [facility] Rx#:[id number] Oral 590 Other: Voiding Method Toilet Toilet Toilet Urinal Urinal Urinal - Labs CBC & Chem 7: 09/22/19 08:14 09/22/19 08:14 Labs: Abnormal Lab Results - Last 24 Hours (Table) 09/21/19 09/21/19 09/22/19 Range/Units 08:09 15:55 08:14 RBC 3.48 L (4.30-5.90) m/uL Hgb 10.6 L (13.0-17.5) gm/dL Hct 33.2 L (39.0-53.0) % APTT 70.2 H (22.0-30.0) sec Chloride (98-107) mmol/L Carbon Dioxide (22-30) mmol/L BUN 48 H (9-20) mg/dL Creatinine 7.88 H* (0.66-1.25) mg/dL Glucose 119 H (74-99) mg/dL Calcium 7.7 L (8.4-10.2) mg/dL 09/22/19 09/22/19 Range/Units 08:14 08:14 RBC (4.30-5.90) m/uL Hgb (13.0-17.5) gm/dL Hct (39.0-53.0) % APTT 97.3 H (22.0-30.0) sec Chloride 108 H (98-107) mmol/L Carbon Dioxide 20 L (22-30) mmol/L BUN 52 H (9-20) mg/dL Creatinine 8.93 H* (0.66-1.25) mg/dL Glucose (74-99) mg/dL Calcium 7.4 L (8.4-10.2) mg/dL Microbiology - Last 24 Hours (Table) 09/21/19 08:09 Blood Culture - Preliminary Blood No Growth after 24 hours 09/20/19 06:56 Blood Culture Gram Stain - Preliminary Blood Blood Culture - Preliminary Presumptive Staph aureus 09/18/19 16:25 Blood Culture Gram Stain - Final Blood Blood Culture - Final Staphylococcus aureus Assessment and Plan Plan: Assessment: 1. End-stage renal disease maintained on hemodialysis on Wednesday schedule via permacath. 2. Clotted fistula. He is scheduled to see vascular surgery outpatient for intervention. 3. Sepsis. Influenza screen negative. Source is permacath - removed September 19. No acute changes noted on abdominal CAT scan. Maintained on IV antibiotics. 4. Hypertension with chronic kidney disease. Controlled. 5. Left IJ thrombus related to permacath. Maintain on heparin drip. Vascular surgery following. 6. Metabolic acidosis secondary to chronic kidney disease. Plan: Monitor for clearance of bacteremia - blood culture from September 21 negative so far. Continue to monitor electrolytes closely. If blood culture from September 21 remains negative, will plan for permacath placement tomorrow. Otherwise he will need a temporary catheter placed for hemodialysis tomorrow.
--- NOTE | 2019-09-22 12:27 | P.PN ---
Subjective Progress Note Date: 09/22/19 Patient seen and evaluated today lying in bed. Patient remains afebrile. Patient denies any pain at this time. The patient denies any shortness of breath or chest pain. Patient had venous doppler duplex of right upper extremity which shows extension of acute occlusive DVT in the right internal jugular vein without right upper extremity involvement. The patient was tentatively scheduled for the tunneled dialysis catheter with Dr. Romeo today, however at this time blood cultures are showing gram-positive cocci in clusters. Objective - Vital Signs Vital signs: Vital Signs Temp 97.8 F 09/22/19 05:00 Pulse 65 09/22/19 05:00 Resp 18 09/22/19 05:00 BP 126/56 09/22/19 05:00 Pulse Ox 96 09/22/19 05:00 Intake & Output 09/21/19 09/22/19 09/22/19 18:59 06:59 18:59 Intake Total 182.628 707.372 142.504 Balance 182.628 707.372 142.504 Weight 75.5 kg Intake: Intake, IV Titration 182.628 117.372 142.504 Amount Heparin Sod,Pork in 0.45% 132.628 117.372 142.504 NaCl 25,000 unit In 0.45 % NaCl 1 250ml.bag @ 18 UNITS/KG/HR 13.064 mls/hr IV .Q19H9M [facility] Rx#: [id number] ceFAZolin 1,000 mg In 50 Sodium Chloride 0.9% 50 ml @ 100 mls/hr IVPB Q24HR [facility] Rx#:[id number] Oral 590 Other: Voiding Method Toilet Toilet Toilet Urinal Urinal Urinal - Exam General appearance: The patient is alert, oriented, in no acute distress. HET: Head is normocephalic and atraumatic. Neck: Right side of neck without swelling or redness. No signs of bleeding or drainage from previous catheter site. Heart: S1 S2. Regular rate and rhythm. Lungs: No crackles or wheezes are heard. Extremities: Normal skin color and turgor. No cyanosis, rash, ulceration, clubbing, or edema. Radial pulses are 2/4 bilaterally. Neurological: No focal deficits. - Labs CBC & Chem 7: 09/22/19 08:14 09/22/19 08:14 Labs: Abnormal Lab Results - Last 24 Hours (Table) 09/21/19 09/22/19 09/22/19 Range/Units 15:55 08:14 08:14 RBC 3.48 L (4.30-5.90) m/uL Hgb 10.6 L (13.0-17.5) gm/dL Hct 33.2 L (39.0-53.0) % APTT 70.2 H (22.0-30.0) sec Chloride 108 H (98-107) mmol/L Carbon Dioxide 20 L (22-30) mmol/L BUN 52 H (9-20) mg/dL Creatinine 8.93 H* (0.66-1.25) mg/dL Calcium 7.4 L (8.4-10.2) mg/dL 09/22/19 Range/Units 08:14 RBC (4.30-5.90) m/uL Hgb (13.0-17.5) gm/dL Hct (39.0-53.0) % APTT 97.3 H (22.0-30.0) sec Chloride (98-107) mmol/L Carbon Dioxide (22-30) mmol/L BUN (9-20) mg/dL Creatinine (0.66-1.25) mg/dL Calcium (8.4-10.2) mg/dL Microbiology - Last 24 Hours (Table) 09/21/19 08:09 Blood Culture - Preliminary Blood No Growth after 24 hours 09/20/19 06:56 Blood Culture Gram Stain - Preliminary Blood Blood Culture - Preliminary Presumptive Staph aureus 09/18/19 16:25 Blood Culture Gram Stain - Final Blood Blood Culture - Final Staphylococcus aureus Assessment and Plan Assessment: Infected tunneled dialysis catheter Right internal jugular thrombus, catheter associated Chronic renal failure, stage IV on dialysis Plan: Discussed patient with Dr. Sullivan. Will hold off on tunneled dialysis catheter at this time for final results on blood cultures and clearing of infection. Continue recommended antibiotics per infectious disease. Continue with recommendations by nephrology. The above dictated assessment and findings were discussed with . The impression and plan of care have been directed as dictated.
[2019-09-22 14:48] VITALS: BMI 25.2
--- NOTE | 2019-09-22 23:25 | PN ---
PROGRESS NOTE DATE OF SERVICE: 09/22/2019 REASON FOR FOLLOWUP: MSSA bacteremia secondary to PermCath infection. INTERVAL HISTORY: The patient is currently afebrile. Patient has been breathing comfortably. The patient denies having any chest pain or shortness of breath or cough. No nausea. No abdominal pain. No diarrhea. PHYSICAL EXAMINATION: Blood pressure 100/55 with a pulse of 54, temperature 98.2. He is 95% on room air. General description is an elderly male lying in bed in no distress. Respiratory system: Unlabored breathing. Clear to auscultation anteriorly. Heart S1, S2. Regular rate and rhythm. Abdomen soft, no tenderness. LABS: Hemoglobin is 10.1, white count 8.5. BUN of 52, creatinine is 8.93. Blood culture 09/21 so far negative. DIAGNOSTIC IMPRESSION AND PLAN: Patient with MSSA bacteremia secondary to PermCath infection. Blood culture 09/21 that was obtained yesterday has been negative so far. If those remains to be negative by tomorrow morning, he may be able to go for PermCath. ID will have required at least 72 hours of negative blood culture before recommending Permacatheter. However advised her to avoid temporary catheter and then Permacatheter, it may be okay if the patient has to be dialyzed tomorrow to go ahead with a Permacatheter if blood culture negative by tomorrow morning. Continue with cefazolin. MMODL / IJN: [id number] /
[2019-09-23 07:26] LABS: Basophils # (A) 0.2 k/uL (0-0.2); Basophils % (A) 2 %; Eosinophils # (A) 0.3 k/uL (0-0.7); Eosinophils % (A) 4 %; HCT 30.3 % (39.0-53.0); HGB 9.6 gm/dL (13.0-17.5); Lymphocytes # (A) 1.4 k/uL (1.0-4.8); Lymphocytes % (A) 14 %; MCH 29.9 pg (25.0-35.0); MCHC 31.6 g/dL (31.0-37.0); MCV 94.3 fL (80.0-100.0); Mean Platelet Volume 10.5; Monocytes # (A) 0.8 k/uL (0-1.0); Monocytes % (A) 8 %; Neutrophils # (A) 6.8 k/uL (1.3-7.7); Neutrophils % (A) 70 %; Platelet Count 173 k/uL (150-450); RBC 3.21 m/uL (4.30-5.90); RDW 14.4 % (11.5-15.5); WBC 9.8 k/uL (3.8-10.6)
[2019-09-23] MEDS: ATORVASTATIN 40 MG TAB PO SCH (08:03)
[2019-09-23] MEDS: PANTOPRAZOLE 40 MG TABLET PO SCH (08:03)
[2019-09-23] MEDS: hydrALAZINE HCL 50 MG TAB PO SCH ×2 (08:03→20:28)
[2019-09-23] MEDS: LISINOPRIL 2.5 MG TAB PO SCH (08:03)
[2019-09-23] MEDS: amLODIPine 10 MG TAB PO SCH (08:03)
[2019-09-23] MEDS: METOPROLOL TARTRATE 25 MG TAB PO SCH ×2 (08:03→20:28)
[2019-09-23 08:35] LABS: Calcium 7.2 mg/dL (8.4-10.2); Potassium 4.1 mmol/L (3.5-5.1)
--- NOTE | 2019-09-23 09:59 | P.PN ---
Subjective Patient is seen in follow-up for end-stage renal disease. He is maintained on hemodialysis on Wednesday schedule. Patient presented with fever. Blood cultures positive for staph aureus. Denies chest pain or shortness of breath.. Dialysis catheter removed September 19. He has been ambulating. No active complaints. Last hemodialysis was on Wednesday. Most recent cultures negative. Vital signs are stable. General: The patient appeared well nourished and normally developed. HEENT: Head exam is unremarkable. Neck is without jugular venous distension. LUNGS: Lungs are clear to auscultation and percussion. Breath sounds decreased. HEART: Rate and Rhythm are regular. First and second heart sounds normal. No murmurs, rubs or gallops. ABDOMEN: Abdominal exam reveals normal bowel sounds. Non-tender and non- distended. No evidence of peritonitis. EXTREMITITES: No clubbing, cyanosis, or edema. Objective - Vital Signs Vital signs: Vital Signs Temp 97.8 F 09/23/19 04:36 Pulse 66 09/23/19 04:36 Resp 18 09/23/19 04:36 BP 137/53 09/23/19 04:36 Pulse Ox 94 L 09/23/19 04:36 Intake & Output 09/22/19 09/23/19 09/23/19 18:59 06:59 18:59 Intake Total 142.504 227.496 103.642 Output Total 50 Balance 142.504 177.496 103.642 Weight 75.5 kg 76.5 kg Intake: Intake, IV Titration 142.504 107.496 103.642 Amount Heparin Sod,Pork in 0.45% 142.504 107.496 103.642 NaCl 25,000 unit In 0.45 % NaCl 1 250ml.bag @ 18 UNITS/KG/HR 13.064 mls/hr IV .Q19H9M [facility] Rx#: [id number] Oral 120 Output: Urine 50 Other: Voiding Method Toilet Urinal Urinal # Voids 1 0 # Bowel Movements 1 - Labs CBC & Chem 7: 09/23/19 06:47 09/23/19 06:47 Labs: Abnormal Lab Results - Last 24 Hours (Table) 09/22/19 09/23/19 09/23/19 Range/Units 17:10 06:47 06:47 RBC 3.21 L (4.30-5.90) m/uL Hgb 9.6 L (13.0-17.5) gm/dL Hct 30.3 L (39.0-53.0) % APTT 53.4 H 85.2 H (22.0-30.0) sec Chloride (98-107) mmol/L Carbon Dioxide (22-30) mmol/L BUN (9-20) mg/dL Creatinine (0.66-1.25) mg/dL Glucose (74-99) mg/dL Calcium (8.4-10.2) mg/dL 09/23/19 Range/Units 06:47 RBC (4.30-5.90) m/uL Hgb (13.0-17.5) gm/dL Hct (39.0-53.0) % APTT (22.0-30.0) sec Chloride 110 H (98-107) mmol/L Carbon Dioxide 19 L (22-30) mmol/L BUN 55 H (9-20) mg/dL Creatinine 9.74 H* (0.66-1.25) mg/dL Glucose 102 H (74-99) mg/dL Calcium 7.2 L (8.4-10.2) mg/dL Microbiology - Last 24 Hours (Table) 09/20/19 06:56 Blood Culture Gram Stain - Final Blood Blood Culture - Final Staphylococcus aureus 09/21/19 08:09 Blood Culture - Preliminary Blood No Growth after 24 hours Assessment and Plan Plan: Assessment: 1. End-stage renal disease maintained on hemodialysis on Wednesday schedule. 2. Clotted fistula. He is scheduled to see vascular surgery outpatient for intervention. 3. Sepsis. Influenza screen negative. Source is permacath - removed September 19. No acute changes noted on abdominal CAT scan. Maintained on IV antibiotics. 4. Hypertension with chronic kidney disease. Controlled. 5. Left IJ thrombus related to permacath. Maintain on heparin drip. Vascular surgery following. 6. Metabolic acidosis secondary to chronic kidney disease. Plan: Monitor for clearance of bacteremia - blood culture from September 21 negative so far. If cleared by infectious disease, will proceed with permacath placement today and hemodialysis this afternoon.
[2019-09-23] MEDS ORDERED: IV FLUID CONTINUATION 500 ML IV ONE (15:14)
[2019-09-23] MEDS ORDERED: MIDAZOLAM 2 MG/2 ML VIAL IV ONE (15:31)
[2019-09-23] MEDS ORDERED: LIDOCAINE 1% INJ 10MG/ML (20 ML MDV) SQ ONE (15:33)
[2019-09-23] MEDS: fentaNYL (PF) 50 MCG/ML 2 ML AMP IV ONE ×2 (15:35→15:39)
--- NOTE | 2019-09-23 16:04 | P.OP ---
Date of Procedure: 09/23/19 Description of Procedure: Preoperative diagnosis: End-stage renal disease, infected right chest wall tunneled dialysis catheter Postoperative diagnosis: Same Procedure: [Ultrasound guided left internal jugular vein access, placement of 28 cm tunneled dialysis catheter, moderate conscious sedation 18] Surgeon: Janet Romeo D.O. EBL: [Less than 5 mL] IV fluids: [Not measured] Urine output: [None] Drains: [None] Complications: [None immediately apparent] Condition: [Stable, returning to room] Operative indication and findings: [The patient is a 79-year-old male who initially presented with sepsis due to a right chest wall tunneled dialysis catheter. This was removed on the seventh. He initially was found to be bacteremic, has been treated with IV antibiotic therapy and cultures of the negative now for 48 hours. Risks and benefits of going forward with a new tunneled asked catheter were discussed with the family and the patient. They'll seemingly understand and are willing to proceed.] Procedure in detail: [The patient was taken to the special suite and placed in supine position. The left neck was prepped and draped in usual sterile fashion. A preprocedure timeout was performed, all parties are in agreement. The ultrasound was utilized, the left internal jugular vein was identified. The skin overlying was anesthetized with 1% lidocaine plain. A multipurpose needle was used, the internal jugular vein was accessed. There was return of dark venous nonpulsatile blood. A guidewire was passed and on initial fluoroscopic imaging appeared to go down the left intercostal vein, multiple attempts were made and this was repositioned down into the vena cava and into the inferior vena cava. At that point attention was turned towards the tunnel. The proposed tunnel as best has 1% lidocaine plain. The previously/20th per meter catheter was tunneled after a skin neck was made. Serial dilators were passed over the wire under fluoroscopic visualization to dilate the tract. That point the tear- away sheath was placed. The inner wire and cannula were removed. The catheter was inserted. A tear-away sheath was removed. The catheter was confirmed in good position with a gentle curve. It was aspirated and flushed freely. Heparinized saline was placed. The neck incision was reapproximated with 4-0 Vicryl, the catheter was sutured in place with 3-0 nylon. Dressings were applied including a Biopatch. A post procedure chest x-ray is pending. The patient tolerated the procedure well]
--- NOTE | 2019-09-23 16:51 | P.PN ---
Subjective Progress Note Date: 09/22/19 Principal diagnosis: Sepsis secondary to permacath positive blood cultures Mental status changes secondary to sepsis acute metabolic encephalopathy End-stage renal disease on hemodialysis Patient is admitted for end-stage renal disease/ bacteremia/sepsis. He is maintained on hemodialysis on Wednesday schedule. Patient presented with fever. Blood cultures positive for staph aureus. Denies chest pain or shortness of breath.. Dialysis catheter removed September 19. He has been ambulating. No active complaints. Last hemodialysis was on Wednesday. Objective - Vital Signs Vital signs: Vital Signs Temp 97.8 F 09/22/19 05:00 Pulse 65 09/22/19 05:00 Resp 18 09/22/19 05:00 BP 126/56 09/22/19 05:00 Pulse Ox 96 09/22/19 05:00 Intake & Output 09/21/19 09/22/19 09/22/19 18:59 06:59 18:59 Intake Total 182.628 707.372 142.504 Balance 182.628 707.372 142.504 Weight 75.5 kg Intake: Intake, IV Titration 182.628 117.372 142.504 Amount Heparin Sod,Pork in 0.45% 132.628 117.372 142.504 NaCl 25,000 unit In 0.45 % NaCl 1 250ml.bag @ 18 UNITS/KG/HR 13.064 mls/hr IV .Q19H9M [facility] Rx#: [id number] ceFAZolin 1,000 mg In 50 Sodium Chloride 0.9% 50 ml @ 100 mls/hr IVPB Q24HR [facility] Rx#:[id number] Oral 590 Other: Voiding Method Toilet Toilet Toilet Urinal Urinal Urinal - Exam PHYSICAL EXAMINATION: GENERAL: The patient is alert and oriented x3, not in any acute distress. Well developed, well nourished. HEENT: Pupils are round and equally reacting to light. EOMI. No scleral icterus. No conjunctival pallor. Normocephalic, atraumatic. No pharyngeal erythema. No thyromegaly. CARDIOVASCULAR: S1 and S2 present. No murmurs, rubs, or gallops. PULMONARY: Chest is clear to auscultation, no wheezing or crackles. ABDOMEN: Soft, nontender, nondistended, normoactive bowel sounds. No palpable organomegaly. MUSCULOSKELETAL: No joint swelling or deformity. EXTREMITIES: No cyanosis, clubbing, or pedal edema. NEUROLOGICAL: Gross neurological examination did not reveal any focal deficits. SKIN: No rashes. - Labs CBC & Chem 7: 09/23/19 06:47 09/23/19 06:47 Labs: Abnormal Lab Results - Last 24 Hours (Table) 09/21/19 09/22/19 09/22/19 Range/Units 15:55 08:14 08:14 RBC 3.48 L (4.30-5.90) m/uL Hgb 10.6 L (13.0-17.5) gm/dL Hct 33.2 L (39.0-53.0) % APTT 70.2 H (22.0-30.0) sec Chloride 108 H (98-107) mmol/L Carbon Dioxide 20 L (22-30) mmol/L BUN 52 H (9-20) mg/dL Creatinine 8.93 H* (0.66-1.25) mg/dL Calcium 7.4 L (8.4-10.2) mg/dL 09/22/19 Range/Units 08:14 RBC (4.30-5.90) m/uL Hgb (13.0-17.5) gm/dL Hct (39.0-53.0) % APTT 97.3 H (22.0-30.0) sec Chloride (98-107) mmol/L Carbon Dioxide (22-30) mmol/L BUN (9-20) mg/dL Creatinine (0.66-1.25) mg/dL Calcium (8.4-10.2) mg/dL Microbiology - Last 24 Hours (Table) 09/21/19 08:09 Blood Culture - Preliminary Blood No Growth after 24 hours 09/20/19 06:56 Blood Culture Gram Stain - Preliminary Blood Blood Culture - Preliminary Presumptive Staph aureus 09/18/19 16:25 Blood Culture Gram Stain - Final Blood Blood Culture - Final Staphylococcus aureus Assessment and Plan Assessment: Sepsis secondary to permacath positive blood cultures Mental status changes secondary to sepsis acute metabolic encephalopathy End-stage renal disease on hemodialysis History of coronary disease with stent History of congestive heart failure mild systolic dysfunction with EF of 40-45% Thrombus to right internal jugular from permacath permacath removal History of GI bleed Hypertension Hyperlipidemia History of iron deficiency anemia Plan Infectious disease treating sepsis will need new access for dialysis after sepsis cleared Continue consultation with nephrology continue consultation with the vascular surgeon
--- NOTE | 2019-09-23 16:56 | XR ---
EXAMINATION TYPE: XR chest 1V portable DATE OF EXAM: 09/23/2019 COMPARISON: 09/17/2019 HISTORY: Check line placement TECHNIQUE: Single view FINDINGS: There is left-sided central venous catheter with the tip in the superior vena cava. No pneu mothorax. Lungs are clear of consolidation. There is no heart failure. Trachea is midline. IMPRESSION: No active cardiopulmonary disease.
--- NOTE | 2019-09-23 17:07 | P.PN ---
Subjective Progress Note Date: 09/23/19 Principal diagnosis: Sepsis secondary to permacath positive blood cultures Mental status changes secondary to sepsis acute metabolic encephalopathy End-stage renal disease on hemodialysis Patient is admitted for end-stage renal disease/ bacteremia/sepsis. He is maintained on hemodialysis on Wednesday schedule. Patient presented with fever. Blood cultures positive for staph aureus. Denies chest pain or shortness of breath.. Dialysis catheter removed September 19. He has been ambulating. No active complaints. Last hemodialysis was on Wednesday. 09/23/2019 Patient is seen and evaluated in room at bedside; according to patient permacath placement has been delayed by OR; patient denies any specific complaints Vital signs remained stable with a temperature of 97.8, pulse 65, respiration 18 and blood pressure 126/56; patient is scheduled for ultrasound-guided left internal jugular placement of tunneled dialysis catheter; patient scheduled to have dialysis later today Objective - Vital Signs Vital signs: Vital Signs Temp 97.5 F L 09/23/19 11:20 Pulse 66 09/23/19 11:20 Resp 18 09/23/19 11:20 BP 131/63 09/23/19 11:20 Pulse Ox 91 L 09/23/19 11:20 Intake & Output 09/22/19 09/23/19 09/23/19 18:59 06:59 18:59 Intake Total 142.504 227.496 153.642 Output Total 50 Balance 142.504 177.496 153.642 Weight 75.5 kg 76.5 kg Intake: IV 50 Intake, IV Titration 142.504 107.496 103.642 Amount Heparin Sod,Pork in 0.45% 142.504 107.496 103.642 NaCl 25,000 unit In 0.45 % NaCl 1 250ml.bag @ 18 UNITS/KG/HR 13.064 mls/hr IV .Q19H9M [facility] Rx#: [id number] Oral 120 0 Output: Urine 50 Other: Voiding Method Toilet Urinal Urinal Urinal # Voids 1 0 1 # Bowel Movements 1 - Exam PHYSICAL EXAMINATION: GENERAL: The patient is alert and oriented x3, not in any acute distress. Well developed, well nourished. HEENT: Pupils are round and equally reacting to light. EOMI. No scleral icterus. No conjunctival pallor. Normocephalic, atraumatic. No pharyngeal erythema. No thyromegaly. CARDIOVASCULAR: S1 and S2 present. No murmurs, rubs, or gallops. PULMONARY: Chest is clear to auscultation, no wheezing or crackles. ABDOMEN: Soft, nontender, nondistended, normoactive bowel sounds. No palpable organomegaly. MUSCULOSKELETAL: No joint swelling or deformity. EXTREMITIES: No cyanosis, clubbing, or pedal edema. NEUROLOGICAL: Gross neurological examination did not reveal any focal deficits. SKIN: No rashes. - Labs CBC & Chem 7: 09/23/19 06:47 09/23/19 06:47 Labs: Abnormal Lab Results - Last 24 Hours (Table) 09/22/19 09/23/19 09/23/19 Range/Units 17:10 06:47 06:47 RBC 3.21 L (4.30-5.90) m/uL Hgb 9.6 L (13.0-17.5) gm/dL Hct 30.3 L (39.0-53.0) % APTT 53.4 H 85.2 H (22.0-30.0) sec Chloride (98-107) mmol/L Carbon Dioxide (22-30) mmol/L BUN (9-20) mg/dL Creatinine (0.66-1.25) mg/dL Glucose (74-99) mg/dL Calcium (8.4-10.2) mg/dL 09/23/19 Range/Units 06:47 RBC (4.30-5.90) m/uL Hgb (13.0-17.5) gm/dL Hct (39.0-53.0) % APTT (22.0-30.0) sec Chloride 110 H (98-107) mmol/L Carbon Dioxide 19 L (22-30) mmol/L BUN 55 H (9-20) mg/dL Creatinine 9.74 H* (0.66-1.25) mg/dL Glucose 102 H (74-99) mg/dL Calcium 7.2 L (8.4-10.2) mg/dL Microbiology - Last 24 Hours (Table) 09/21/19 08:09 Blood Culture - Preliminary Blood No Growth after 48 hours 09/22/19 08:14 Blood Culture - Preliminary Blood No Growth after 24 hours 09/20/19 06:56 Blood Culture Gram Stain - Final Blood Blood Culture - Final Staphylococcus aureus Assessment and Plan Assessment: Sepsis secondary to permacath positive blood cultures Mental status changes secondary to sepsis acute metabolic encephalopathy End-stage renal disease on hemodialysis History of coronary disease with stent History of congestive heart failure mild systolic dysfunction with EF of 40-45% Thrombus to right internal jugular from permacath permacath removal History of GI bleed Hypertension Hyperlipidemia History of iron deficiency anemia Plan Infectious disease treating sepsis will need new access for dialysis after sepsis cleared Continue consultation with nephrology continue consultation with the vascular surgeon
--- NOTE | 2019-09-23 20:03 | PN ---
PROGRESS NOTE DATE OF SERVICE: 09/23/2019 REASON FOR FOLLOWUP: MSSA bacteremia secondary to PermCath infection. INTERVAL HISTORY: The patient was seen on rounds this morning. The patient has been afebrile, breathing comfortably. The patient denies having any chest pain, shortness of breath or cough. No nausea, vomiting, abdominal pain or diarrhea. PHYSICAL EXAMINATION: Blood pressure 131/63 with a pulse of 66. Temperature 97.5. He is 91% on room air. General description is an elderly male lying in bed in no distress. RESPIRATORY SYSTEM: Unlabored breathing. Clear to auscultation anteriorly. HEART: S1, S2. Regular rate and rhythm. ABDOMEN: Soft. No tenderness. LABS: Blood cultures on 09/21 and 09/22 remain negative. White count 9.8. DIAGNOSTIC IMPRESSION AND PLAN: Patient with methicillin-susceptible Staphylococcus aeruginosa bacteremia secondary to PermCath, which has been discontinued, with follow-up blood culture negative for more than 48 hours. He was able to get another PermCath. We will keep the patient on cefazolin 1 gram daily or transition to 2 grams post for another 2 weeks on discharge and will monitor clinical course closely. MMODL / IJN: [id number] /
[2019-09-23] MEDS: HEPARIN SOD,PORK IN 0.45% NACL 25,000 UNIT in 0.45% NACL 1 250ML.BAG IV SCH (20:23)
[2019-09-24 08:03] LABS: Calcium 7.8 mg/dL (8.4-10.2); Potassium 4.1 mmol/L (3.5-5.1)
[2019-09-24 08:08] LABS: Basophils # (A) 0.1 k/uL (0-0.2); Basophils % (A) 1 %; Eosinophils # (A) 0.3 k/uL (0-0.7); Eosinophils % (A) 4 %; HCT 34.5 % (39.0-53.0); HGB 11.2 gm/dL (13.0-17.5); Lymphocytes # (A) 1.2 k/uL (1.0-4.8); Lymphocytes % (A) 13 %; MCH 30.6 pg (25.0-35.0); MCHC 32.4 g/dL (31.0-37.0); MCV 94.4 fL (80.0-100.0); Mean Platelet Volume 10.6; Monocytes # (A) 0.8 k/uL (0-1.0); Monocytes % (A) 9 %; Neutrophils # (A) 6.4 k/uL (1.3-7.7); Neutrophils % (A) 71 %; Platelet Count 185 k/uL (150-450); RBC 3.65 m/uL (4.30-5.90); RDW 14.2 % (11.5-15.5); WBC 9.1 k/uL (3.8-10.6)
[2019-09-24] MEDS: ATORVASTATIN 40 MG TAB PO SCH (08:55)
[2019-09-24] MEDS: LISINOPRIL 2.5 MG TAB PO SCH (08:55)
[2019-09-24] MEDS: hydrALAZINE HCL 50 MG TAB PO SCH ×2 (08:55→20:50)
[2019-09-24] MEDS: amLODIPine 10 MG TAB PO SCH (08:55)
[2019-09-24] MEDS: METOPROLOL TARTRATE 25 MG TAB PO SCH ×2 (08:56→20:50)
[2019-09-24] MEDS: PANTOPRAZOLE 40 MG TABLET PO SCH (08:56)
--- NOTE | 2019-09-24 10:23 | P.PN ---
Subjective Patient is seen in follow-up for end-stage renal disease. He is maintained on hemodialysis on Wednesday schedule. Patient presented with fever. Blood cultures positive for staph aureus. Denies chest pain or shortness of breath. Dialysis catheter removed September 19 and new catheter placed September 23. Most recent cultures negative. Tolerated hemodialysis well yesterday. Vital signs are stable. General: The patient appeared well nourished and normally developed. HEENT: Head exam is unremarkable. Neck is without jugular venous distension. LUNGS: Lungs are clear to auscultation and percussion. Breath sounds decreased. HEART: Rate and Rhythm are regular. First and second heart sounds normal. No murmurs, rubs or gallops. ABDOMEN: Abdominal exam reveals normal bowel sounds. Non-tender and non- distended. No evidence of peritonitis. EXTREMITITES: No clubbing, cyanosis, or edema. Objective - Vital Signs Vital signs: Vital Signs Temp 98.3 F 09/24/19 04:39 Pulse 70 09/24/19 04:39 Resp 18 09/24/19 04:39 BP 142/65 09/24/19 04:39 Pulse Ox 94 L 09/24/19 04:39 Intake & Output 09/23/19 09/24/19 09/24/19 18:59 06:59 18:59 Intake Total 153.642 334.714 92.122 Output Total 1400 Balance 153.642 -1065.286 92.122 Weight 77 kg Intake: IV 50 Intake, IV Titration 103.642 94.714 92.122 Amount Heparin Sod,Pork in 0.45% 103.642 94.714 92.122 NaCl 25,000 unit In 0.45 % NaCl 1 250ml.bag @ 18 UNITS/KG/HR 13.064 mls/hr IV .Q19H9M [facility] Rx#: [id number] Oral 0 240 Output: Hemodialysis 1400 Other: Voiding Method Urinal Urinal Urinal # Voids 1 2 # Bowel Movements 1 - Labs CBC & Chem 7: 09/24/19 07:13 09/24/19 07:13 Labs: Abnormal Lab Results - Last 24 Hours (Table) 09/24/19 09/24/19 09/24/19 Range/Units 00:24 07:13 07:13 RBC 3.65 L (4.30-5.90) m/uL Hgb 11.2 L (13.0-17.5) gm/dL Hct 34.5 L (39.0-53.0) % APTT 95.6 H (22.0-30.0) sec Sodium 136 L (137-145) mmol/L BUN 32 H (9-20) mg/dL Creatinine 6.16 H (0.66-1.25) mg/dL Glucose 103 H (74-99) mg/dL Calcium 7.8 L (8.4-10.2) mg/dL 09/24/19 Range/Units 07:13 RBC (4.30-5.90) m/uL Hgb (13.0-17.5) gm/dL Hct (39.0-53.0) % APTT 86.1 H (22.0-30.0) sec Sodium (137-145) mmol/L BUN (9-20) mg/dL Creatinine (0.66-1.25) mg/dL Glucose (74-99) mg/dL Calcium (8.4-10.2) mg/dL Microbiology - Last 24 Hours (Table) 09/23/19 06:47 Blood Culture - Preliminary Blood No Growth after 24 hours 09/21/19 08:09 Blood Culture - Preliminary Blood No Growth after 48 hours 09/22/19 08:14 Blood Culture - Preliminary Blood No Growth after 24 hours Assessment and Plan Plan: Assessment: 1. End-stage renal disease maintained on hemodialysis on Wednesday schedule. 2. Clotted fistula. He is scheduled to see vascular surgery outpatient for intervention. 3. Sepsis. Influenza screen negative. Source is permacath - removed September 19 and is new permacath placed September 23. No acute changes noted on abdominal CAT scan. Maintained on IV antibiotics. 4. Hypertension with chronic kidney disease. Controlled. 5. Left IJ thrombus related to permacath. Maintain on heparin drip. Vascular surgery following. 6. Metabolic acidosis secondary to chronic kidney disease. Improved p ostdialysis. Plan: Next hemodialysis on Wednesday. Antibiotics per infectious disease. Follow-up with vascular surgery outpatient.
--- NOTE | 2019-09-24 14:23 | P.PN ---
Subjective Progress Note Date: 09/24/19 Patient seen and examined. No issues. Tolerated dialysis well last night without any issue Objective - Vital Signs Vital signs: Vital Signs Temp 97.5 F L 09/24/19 11:39 Pulse 70 09/24/19 11:39 Resp 18 09/24/19 11:39 BP 116/56 09/24/19 11:39 Pulse Ox 91 L 09/24/19 11:39 Intake & Output 09/23/19 09/24/19 09/24/19 18:59 06:59 18:59 Intake Total 153.642 334.714 342.122 Output Total 1400 Balance 153.642 -1065.286 342.122 Weight 77 kg Intake: IV 50 Intake, IV Titration 103.642 94.714 142.122 Amount Heparin Sod,Pork in 0.45% 103.642 94.714 92.122 NaCl 25,000 unit In 0.45 % NaCl 1 250ml.bag @ 18 UNITS/KG/HR 13.064 mls/hr IV .Q19H9M [facility] Rx#: [id number] ceFAZolin 1,000 mg In 50 Sodium Chloride 0.9% 50 ml @ 100 mls/hr IVPB Q24HR [facility] Rx#:[id number] Oral 0 240 200 Output: Hemodialysis 1400 Other: Voiding Method Urinal Urinal Urinal # Voids 1 2 2 # Bowel Movements 2 - Exam No acute distress. Left neck dressing clean, dry, intact. Heart is regular. Lungs are clear. - Labs CBC & Chem 7: 09/24/19 07:13 09/24/19 07:13 Labs: Abnormal Lab Results - Last 24 Hours (Table) 09/24/19 09/24/19 09/24/19 Range/Units 00:24 07:13 07:13 RBC 3.65 L (4.30-5.90) m/uL Hgb 11.2 L (13.0-17.5) gm/dL Hct 34.5 L (39.0-53.0) % APTT 95.6 H (22.0-30.0) sec Sodium 136 L (137-145) mmol/L BUN 32 H (9-20) mg/dL Creatinine 6.16 H (0.66-1.25) mg/dL Glucose 103 H (74-99) mg/dL Calcium 7.8 L (8.4-10.2) mg/dL 09/24/19 Range/Units 07:13 RBC (4.30-5.90) m/uL Hgb (13.0-17.5) gm/dL Hct (39.0-53.0) % APTT 86.1 H (22.0-30.0) sec Sodium (137-145) mmol/L BUN (9-20) mg/dL Creatinine (0.66-1.25) mg/dL Glucose (74-99) mg/dL Calcium (8.4-10.2) mg/dL Microbiology - Last 24 Hours (Table) 09/21/19 08:09 Blood Culture - Preliminary Blood No Growth after 72 hours 09/22/19 08:14 Blood Culture - Preliminary Blood No Growth after 48 hours 09/23/19 06:47 Blood Culture - Preliminary Blood No Growth after 24 hours Assessment and Plan Assessment: #1 end-stage renal disease #2 status post new left tunneled dialysis catheter placement #3 bacteremia from infected right tunneled dialysis catheter, status post removal Plan: Doing well overall. Continue dialysis per nephrology. Transition from heparin to oral anticoagulation tonight. Continue oral anticoagulation on discharge. Follow-up with primary vascular surgeon regarding ongoing plans.
[2019-09-24] MEDS: HEPARIN SOD,PORK IN 0.45% NACL 25,000 UNIT in 0.45% NACL 1 250ML.BAG IV SCH (14:30)
--- NOTE | 2019-09-24 16:24 | P.PN ---
Subjective Progress Note Date: 09/24/19 Principal diagnosis: Sepsis secondary to permacath positive blood cultures Mental status changes secondary to sepsis acute metabolic encephalopathy End-stage renal disease on hemodialysis Patient is admitted for end-stage renal disease/ bacteremia/sepsis. He is maintained on hemodialysis on Wednesday schedule. Patient presented with fever. Blood cultures positive for staph aureus. Denies chest pain or shortness of breath.. Dialysis catheter removed September 19. He has been ambulating. No active complaints. Last hemodialysis was on Wednesday. 09/23/2019 Patient is seen and evaluated in room at bedside; according to patient permacath placement has been delayed by OR; patient denies any specific complaints Vital signs remained stable with a temperature of 97.8, pulse 65, respiration 18 and blood pressure 126/56; patient is scheduled for ultrasound-guided left internal jugular placement of tunneled dialysis catheter; patient scheduled to have dialysis later today 09/24/2019; 24-hour interval change Patient is status post permacath replacement; did undergo dialysis yesterday; nephrology is following and recommending repeat dialysis on Wednesday which will be patient's regular scheduled dialysis day; patient's blood cultures have been negative for more than 48 hours; IDs following and recommending to continue cefazolin 1 g IV daily for 2 weeks post discharge; patient remains on IV heparin infusion for right IJ thrombus; vascular surgery to reevaluate patient tomorrow and make further recommendations; per surgery permacath could be used for IV antibiotics Objective - Vital Signs Vital signs: Vital Signs Temp 98.3 F 09/24/19 04:39 Pulse 70 09/24/19 04:39 Resp 18 09/24/19 04:39 BP 142/65 09/24/19 04:39 Pulse Ox 94 L 09/24/19 04:39 Intake & Output 09/23/19 09/24/19 09/24/19 18:59 06:59 18:59 Intake Total 153.642 334.714 92.122 Output Total 1400 Balance 153.642 -1065.286 92.122 Weight 77 kg Intake: IV 50 Intake, IV Titration 103.642 94.714 92.122 Amount Heparin Sod,Pork in 0.45% 103.642 94.714 92.122 NaCl 25,000 unit In 0.45 % NaCl 1 250ml.bag @ 18 UNITS/KG/HR 13.064 mls/hr IV .Q19H9M [facility] Rx#: [id number] Oral 0 240 Output: Hemodialysis 1400 Other: Voiding Method Urinal Urinal Urinal # Voids 1 2 # Bowel Movements 1 - Exam PHYSICAL EXAMINATION: GENERAL: The patient is alert and oriented x3, not in any acute distress. Well developed, well nourished. HEENT: Pupils are round and equally reacting to light. EOMI. No scleral icterus. No conjunctival pallor. Normocephalic, atraumatic. No pharyngeal erythema. No th yromegaly. CARDIOVASCULAR: S1 and S2 present. No murmurs, rubs, or gallops. PULMONARY: Chest is clear to auscultation, no wheezing or crackles. ABDOMEN: Soft, nontender, nondistended, normoactive bowel sounds. No palpable organomegaly. MUSCULOSKELETAL: No joint swelling or deformity. EXTREMITIES: No cyanosis, clubbing, or pedal edema. NEUROLOGICAL: Gross neurological examination did not reveal any focal deficits. SKIN: No rashes. - Labs CBC & Chem 7: 09/24/19 07:13 09/24/19 07:13 Labs: Abnormal Lab Results - Last 24 Hours (Table) 09/24/19 09/24/19 09/24/19 Range/Units 00:24 07:13 07:13 RBC 3.65 L (4.30-5.90) m/uL Hgb 11.2 L (13.0-17.5) gm/dL Hct 34.5 L (39.0-53.0) % APTT 95.6 H (22.0-30.0) sec Sodium 136 L (137-145) mmol/L BUN 32 H (9-20) mg/dL Creatinine 6.16 H (0.66-1.25) mg/dL Glucose 103 H (74-99) mg/dL Calcium 7.8 L (8.4-10.2) mg/dL 09/24/19 Range/Units 07:13 RBC (4.30-5.90) m/uL Hgb (13.0-17.5) gm/dL Hct (39.0-53.0) % APTT 86.1 H (22.0-30.0) sec Sodium (137-145) mmol/L BUN (9-20) mg/dL Creatinine (0.66-1.25) mg/dL Glucose (74-99) mg/dL Calcium (8.4-10.2) mg/dL Microbiology - Last 24 Hours (Table) 09/22/19 08:14 Blood Culture - Preliminary Blood No Growth after 48 hours 09/23/19 06:47 Blood Culture - Preliminary Blood No Growth after 24 hours 09/21/19 08:09 Blood Culture - Preliminary Blood No Growth after 48 hours Assessment and Plan Assessment: 1. Sepsis/ MSSA bacteremia secondary to permacath - Permacath was removed 09/19 and reinserted on 09/23/2019; repeat blood cultures are negative for more than 48 hours - ID is on board and recommending to continue with cefazolin 1 g IV daily; ID recommending to continue with antibiotic therapy for 2 weeks postdischarge 2. Mental status change/acute metabolic encephalopathy secondary to sepsis; resolved 3. End-stage renal disease/ HD; patient is maintained on Wednesday, and Wednesday schedule 4. Coronary artery disease with history of stent placement; stable 5. Congestive heart failure; mild systolic dysfunction with EF of 40-45%; compensated 6. Thrombus to right internal jugular from permacath; permacath removed and reinserted - Patient remains on IV heparin infusion; vascular surgery is following; await further recommendations 7. Hypertension; stable on home dose of amlodipine 10 mg daily along with lisinopril 2.5 mg daily and metoprolol 25 mg twice a day 8. Hyperlipidemia; Lipitor 40 mg by mouth daily at bedtime DVT prophylaxis; systemic anticoagulation with heparin CODE STATUS; full code
[2019-09-24] MEDS: APIXABAN 5 MG TAB PO SCH (20:50)
--- NOTE | 2019-09-24 21:04 | PN ---
PROGRESS NOTE DATE OF SERVICE: 09/24/2019. REASON FOR FOLLOWUP: MSSA bacteremia secondary to PermCath infection. INTERVAL HISTORY: The patient is currently afebrile. Patient has been breathing comfortably. The patient denies having any chest pain, shortness of breath or cough. No nausea, vomiting, abdominal pain, no diarrhea. The patient did get his PermCath history and has received dialysis. PHYSICAL EXAMINATION: Blood pressure 115/56, pulse of 70. Temperature 97.5. He is 91% on room air. General description is an elderly male lying in bed in no distress. Respiratory system: Unlabored breathing, clear to auscultation anteriorly. Heart S1, S2. Regular rate and rhythm. Abdomen soft. No tenderness. LABS: Hemoglobin is 11.8, white count 9.1. BUN of 32, creatinine 6.16. DIAGNOSTIC IMPRESSION AND PLAN: Patient with MSSA bacteremia secondary to PermCath infection. Followup blood culture of 09/21, 09/22 and 09/23 has been negative. The patient on cefazolin to continue. We will try to arrange for cefazolin 2 g post dialysis for at least 2 weeks to avoid placement of a PICC line for outpatient IV antibiotic therapy. This were discussed further with the case therapist. Continue supportive care. MMODL / IJN: [id number] /
[2019-09-25] MEDS: ATORVASTATIN 40 MG TAB PO SCH (08:26)
[2019-09-25] MEDS: PANTOPRAZOLE 40 MG TABLET PO SCH (08:27)
[2019-09-25] MEDS: APIXABAN 5 MG TAB PO SCH (08:27)
[2019-09-25] MEDS: hydrALAZINE HCL 50 MG TAB PO SCH (08:27)
[2019-09-25] MEDS: amLODIPine 10 MG TAB PO SCH (08:27)
[2019-09-25] MEDS: LISINOPRIL 2.5 MG TAB PO SCH (08:27)
[2019-09-25] MEDS: METOPROLOL TARTRATE 25 MG TAB PO SCH (08:27)
[2019-09-25 09:22] LABS: Basophils # (A) 0.3 k/uL (0-0.2); Basophils % (A) 3 %; Eosinophils # (A) 0.3 k/uL (0-0.7); Eosinophils % (A) 3 %; HCT 36.1 % (39.0-53.0); HGB 11.3 gm/dL (13.0-17.5); Lymphocytes # (A) 0.8 k/uL (1.0-4.8); Lymphocytes % (A) 9 %; MCH 29.8 pg (25.0-35.0); MCHC 31.3 g/dL (31.0-37.0); MCV 95.1 fL (80.0-100.0); Mean Platelet Volume 10.2; Monocytes # (A) 0.6 k/uL (0-1.0); Monocytes % (A) 7 %; Neutrophils # (A) 6.8 k/uL (1.3-7.7); Neutrophils % (A) 76 %; Platelet Count 205 k/uL (150-450); RBC 3.79 m/uL (4.30-5.90); RDW 14.6 % (11.5-15.5); WBC 8.8 k/uL (3.8-10.6)
[2019-09-25 10:19] LABS: Calcium 7.8 mg/dL (8.4-10.2); Potassium 3.6 mmol/L (3.5-5.1)
[2019-09-25 11:27] VITALS: BP 132/68; PULSE 83; RESP 18; TEMP 97.8
--- NOTE | 2019-09-25 13:16 | P.PN ---
Subjective Progress Note Date: 09/25/19 Patient seen and evaluated today sitting up in the chair. Patient remains afebrile, with no overnight changes. The patient denies any shortness of breath or chest pain. Patient states he will be discharged home today with follow up with his vascular surgeon outpatient. Pt will continue hemodialysis per his previous schedule Wednesday, and Wednesday Objective - Vital Signs Vital signs: Vital Signs Temp 97.3 F L 09/25/19 04:36 Pulse 80 09/25/19 04:36 Resp 16 09/25/19 04:36 BP 142/61 09/25/19 04:36 Pulse Ox 94 L 09/25/19 04:36 Intake & Output 09/24/19 09/25/19 09/25/19 18:59 06:59 18:59 Intake Total 342.122 150 Balance 342.122 150 Weight 76 kg Intake: Intake, IV Titration 142.122 Amount Heparin Sod,Pork in 0.45% 92.122 NaCl 25,000 unit In 0.45 % NaCl 1 250ml.bag @ 18 UNITS/KG/HR 13.064 mls/hr IV .[id number] [facility] Rx#: [id number] ceFAZolin 1,000 mg In 50 Sodium Chloride 0.9% 50 ml @ 100 mls/hr IVPB Q24HR [facility] Rx#:[id number] Oral 200 150 Other: Voiding Method Urinal Urinal # Voids 2 2 # Bowel Movements 2 - Exam General appearance: The patient is alert, oriented, in no acute distress. HET: Head is normocephalic and atraumatic. Neck: Supple. Left side with intact tunneled catheter with dressing. Heart: S1 S2. Regular rate and rhythm. Lungs: No crackles or wheezes are heard. Extremities: Normal skin color and turgor. No cyanosis, rash, ulceration, clubbing, or edema. Radial pulses are 2/4 bilaterally. Neurological: No focal deficits. - Labs CBC & Chem 7: 09/25/19 08:58 09/25/19 08:58 Labs: Microbiology - Last 24 Hours (Table) 09/21/19 08:09 Blood Culture - Preliminary Blood No Growth after 72 hours 09/22/19 08:14 Blood Culture - Preliminary Blood No Growth after 48 hours 09/23/19 06:47 Blood Culture - Preliminary Blood No Growth after 24 hours Assessment and Plan Assessment: Chronic renal failure, stage IV on dialysis Status post new Tunneled dialysis catheter bacteremia Infected tunneled dialysis catheter, status post removal Right internal jugular thrombus, catheter associated Plan: Patient has been transitioned to oral anticoagulation. Patient to follow up with his vascular surgeon after discharge. The above dictated assessment and findings were discussed with Dr. Romeo. The impression and plan of care have been directed as dictated.
--- NOTE | 2019-09-25 15:22 | IR ---
Fluoroscopy HISTORY: Renal failure 1.3 minutes fluoroscopy time supplied to the referring clinician. 200 intraoperative C-arm images do cument the procedure. See dictated report from vascular surgery.
--- NOTE | 2019-09-25 16:10 | PN ---
PROGRESS NOTE Patient is seen for followup for end-stage renal disease. Patient was admitted to the hospital with bacteremia. His blood culture had grown MSSA. He is currently status post new PermCath placement. Repeat blood cultures have been negative. Patient will be dialyzed tomorrow. PHYSICAL EXAMINATION: On examination, blood pressure is 132/68, heart rate 83 per minute. He is afebrile. EXAMINATION OF THE HEART: S1 and S2. EXAMINATION OF LUNGS: Bilateral breath sounds are heard. ABDOMEN: Soft, non-tender. Examination of lower extremities shows no evidence of edema. PARCEL POST ORDER CLERK exam is grossly intact. LABS: Sodium 139, potassium 3.6, BUN 42, creatinine 8.3, hemoglobin 11.3 g/dL. ASSESSMENT: 1. End-stage renal disease, on hemodialysis on a Wednesday, , Wednesday schedule. 2. Methicillin-susceptible Staphylococcus aeruginosa bacteremia, status post removal of PermCath with new dialysis catheter placement. This was done on September 23. 3. Thrombosed AV fistula in left upper arm. 4. Sepsis with methicillin-susceptible Staphylococcus aeruginosa bacteremia from PermCath. 5. Left IJ thrombus related to PermCath insertion, maintained on anticoagulation. PLAN: Hemodialysis in a.m. This can be done as outpatient and patient can be discharged from nephrology standpoint. MMODL / IJN: [id number] /
--- NOTE | 2019-09-25 17:35 | P.DS ---
Providers Date of admission: 09/17/19 19:16 Expected date of discharge: 09/25/19 Attending physician: Edward Bowen Consults: 09/17/19 21:37 Consult Physician Routine Consulting Provider: Santhosh Hilton Consult Reason/Comments: crf Do you want consulting provider notified?: Yes 09/18/19 10:11 Consult Physician Routine Consulting Provider: Juan Alberto Knight Consult Reason/Comments: suspected infection Do you want consulting provider notified?: Yes 09/19/19 10:55 Consult Physician Routine Consulting Provider: Janet Romeo Consult Reason/Comments: remove permacath after dialysis Do you want consulting provider notified?: Yes Primary care physician: Edward Bowen Hospital Course: 79-year-old male presented to the emergency room with complaints of mental status changes. Patient was found to be septic from his permacatheter. Patient had positive blood cultures. The patient was evaluated by nephrology infectious disease and vascular surgeon. Permacath was removed on ultrasound found thrombus to the right internal jugular patient has been started on Eliqus. Patient is improved greatly plan is for discharge home with 2 weeks of ceffazolin' vascular surgeon inserted new permacath to the left side Assessment Sepsis secondary to permacatheter removed Positive blood cultures Mental status changes acute metabolic encephalopathy secondary to sepsis Chronic renal failure on hemodialysis end-stage History of coronary disease with stent and ME History of congestive heart failure ejection fraction 40-45% Thrombus right internal jugular History of GI bleed Hypertension Hyperlipidemia History of the lower GI bleed History of iron deficiency anemia Plan Discharge home on cefazolin Of follow-up with the nephrology for dialysis Follow-up with vascular surgeon Follow-up with family physician Dr. Edward Bowen Patient Condition at Discharge: Stable Plan - Discharge Summary Discharge Rx Participant: Yes New Discharge Prescriptions: New Apixaban [Eliquis] 5 mg PO BID #60 tab Pantoprazole [Protonix] 40 mg PO AC-BRKFST #30 tablet. Lisinopril [Zestril] 2.5 mg PO DAILY #30 tab Continue Ipratropium-Albuterol Nebulize [Duoneb 0.5 mg-3 mg/3 ml Soln] 3 ml INHALATION RT-QID #120 ampul.neb Awilda-Fred 0.8mg 0.8 mg PO DAILY amLODIPine [Norvasc] 10 mg PO DAILY Atorvastatin [Lipitor] 40 mg PO DAILY Calcium Acetate [PhosLo] 667 mg PO BID hydrALAZINE HCL [Apresoline] 50 mg PO BID Metoprolol Tartrate [Lopressor] 25 mg PO BID Discontinued Lisinopril [Zestril] 10 mg PO DAILY Discharge Medication List Ipratropium-Albuterol Nebulize [Duoneb 0.5 mg-3 mg/3 ml Soln] 3 ml INHALATION RT-QID #120 ampul.neb 01/20/18 [Rx] Atorvastatin [Lipitor] 40 mg PO DAILY 02/27/19 [History] Calcium Acetate [PhosLo] 667 mg PO BID 02/27/19 [History] Metoprolol Tartrate [Lopressor] 25 mg PO BID 02/27/19 [History] Awilda-Fred 0.8mg 0.8 mg PO DAILY 02/27/19 [History] amLODIPine [Norvasc] 10 mg PO DAILY 02/27/19 [History] hydrALAZINE HCL [Apresoline] 50 mg PO BID 02/27/19 [History] Apixaban [Eliquis] 5 mg PO BID #60 tab 09/25/19 [Rx] Lisinopril [Zestril] 2.5 mg PO DAILY #30 tab 09/25/19 [Rx] Pantoprazole [Protonix] 40 mg PO AC-BRKFST #30 tablet. 09/25/19 [Rx] Follow up Appointment(s)/Referral(s): Edward Bowen MD [Primary Care Provider] - 09/29/19 1:10 pm Patient Instructions/Handouts: Lisinopril (By mouth), Pantoprazole (By mouth), Apixaban (By mouth), Chronic Kidney Disease (DC), Acute Nausea and Vomiting (DC), Weakness (DC) Activity/Diet/Wound Care/Special Instructions: Room n House equipment: will deliver a walker to the hospital. Discharge Disposition: HOME SELF-CARE
--- NOTE | 2019-09-25 21:49 | PN ---
PROGRESS NOTE DATE OF SERVICE: 09/25/2019. REASON FOR FOLLOWUP: MSSA bacteremia secondary to PermCath infection. INTERVAL HISTORY: The patient was seen on rounds this morning. The patient has been afebrile, breathing comfortably. Denies having any chest pain or any cough. No nausea, no vomiting, no abdominal pain, no diarrhea. PHYSICAL EXAMINATION: Blood pressure 132/68 with a pulse of 83, temperature 97.8. He is 94% on room air. General description is an elderly male lying in bed in no distress. RESPIRATORY SYSTEM: Unlabored breathing. Clear to auscultation anteriorly. HEART: S1, S2. Regular rate and rhythm. ABDOMEN: Soft. No tenderness. EXTREMITIES: No edema of the feet. LABS: White count of 8.8. Blood cultures from 09/21, 09/22 and 09/23 have been negative. DIAGNOSTIC IMPRESSION AND PLAN: Patient with methicillin-susceptible Staphylococcus aeruginosa secondary to PermCath which has been discontinued. Follow-up blood culture has been negative. The patient did get a new PermCath. He will continue with cefazolin 2 grams post each dialysis for 3 weeks with close outpatient followup. Prescription provided to the spring encaser. MMODL / IJN: [id number] /
== END 2019-09-25 17:00 | disposition home or self-care (01) | DRG 314 ==
LOC: EC 17:00 → 5NMEDONC 19:16
PROVIDERS: ADMIT Family Medicine; ATTEND Family Medicine
PROC: 05PY33Z Removal of Infusion Device from Upper Vein, Percutaneous Approach (ICD-10-PCS; principal; 2019-09-19)
PROC: 0JPV3XZ Removal of Tunneled Vascular Access Device from Upper Extremity Subcutaneous Tissue and Fascia, Percutaneous Approach (ICD-10-PCS; principal; 2019-09-19)
PROC: 0JH63XZ Insertion of Tunneled Vascular Access Device into Chest Subcutaneous Tissue and Fascia, Percutaneous Approach (ICD-10-PCS; 2019-09-23 11:00)
PROC: 05HN33Z Insertion of Infusion Device into Left Internal Jugular Vein, Percutaneous Approach (ICD-10-PCS; 2019-09-23 11:00)
DX: T82.7XXA Infection and inflammatory reaction due to other cardiac and vascular devices, implants and grafts, initial encounter (principal); G93.41 Metabolic encephalopathy; N18.6 End stage renal disease; A41.01 Sepsis due to Methicillin susceptible Staphylococcus aureus; E87.2 Acidosis; I13.2 Hypertensive heart and chronic kidney disease with heart failure and with stage 5 chronic kidney disease, or end stage renal disease; I50.22 Chronic systolic (congestive) heart failure; I82.C13 Acute embolism and thrombosis of internal jugular vein, bilateral; E78.5 Hyperlipidemia, unspecified; I25.10 Atherosclerotic heart disease of native coronary artery without angina pectoris; D50.9 Iron deficiency anemia, unspecified; I73.9 Peripheral vascular disease, unspecified; Z96.1 Presence of intraocular lens; K57.30 Diverticulosis of large intestine without perforation or abscess without bleeding; Z79.899 Other long term (current) drug therapy; Z79.82 Long term (current) use of aspirin; I25.2 Old myocardial infarction; Z82.3 Family history of stroke; Z82.49 Family history of ischemic heart disease and other diseases of the circulatory system; Z86.718 Personal history of other venous thrombosis and embolism; Z87.01 Personal history of pneumonia (recurrent); Z87.19 Personal history of other diseases of the digestive system; Z87.891 Personal history of nicotine dependence; Z95.5 Presence of coronary angioplasty implant and graft; Z98.41 Cataract extraction status, right eye; Z98.42 Cataract extraction status, left eye; Z99.2 Dependence on renal dialysis
CPT/HCPCS: 36415; 36558; 71045; 71046; 74176; 76536; 76937; 77001; 80048; 80053; 83605; 83690; 85025; 85610; 85730; 86706; 87040; 87077; 87086; 87186; 87340; 87502; 90935; 93005; 96374; 99285

== ENCOUNTER 2019-10-03 11:55 | Emergency (ER) | payer MEDICARE ==
[2019-10-03 11:59] VITALS: TEMP 98
--- NOTE | 2019-10-03 13:04 | ED ---
General Adult HPI - General Chief complaint: Syncope Stated complaint: Syncope Time Seen by Provider: 10/03/19 12:00 Source: patient, RN notes reviewed, old records reviewed Mode of arrival: wheelchair Limitations: no limitations - History of Present Illness Initial comments: This is a 79-year-old male who resents to the emergency department after having a near syncopal episode while he was at dialysis. Patient states he went there to be dialyzed they had him stand up to take a blood pressure and he stood up he felt very lightheaded and 2 week to stand so they caught him and set him back down. Patient states he never completely passed out but he did feel very weak. Patient states prior to that he felt fine and since then he felt fine. Patient denies at any point time that he had chest pain palpitations difficulty breathing shortness of breath. Patient denies any recent fever chills or cough. Patient denies any nausea vomiting or diarrhea recently. Patient denies any abdominal pain. Patient denies feeling lightheaded or dizzy currently. - Related Data Home Medications Medication Instructions Recorded Confirmed Atorvastatin [Lipitor] 40 mg PO DAILY 02/27/19 10/03/19 Calcium Acetate [PhosLo] 667 mg PO BID 02/27/19 10/03/19 Metoprolol Tartrate [Lopressor] 25 mg PO BID 02/27/19 10/03/19 Awilda-Fred 0.8mg 0.8 mg PO DAILY 02/27/19 10/03/19 amLODIPine [Norvasc] 10 mg PO DAILY 02/27/19 10/03/19 hydrALAZINE HCL [Apresoline] 50 mg PO BID 02/27/19 10/03/19 Previous Rx's Medication Instructions Recorded Ipratropium-Albuterol Nebulize 3 ml INHALATION RT-QID #120 01/20/18 [Duoneb 0.5 mg-3 mg/3 ml Soln] ampul.neb Apixaban [Eliquis] 5 mg PO BID #60 tab 09/25/19 Lisinopril [Zestril] 2.5 mg PO DAILY #30 tab 09/25/19 Pantoprazole [Protonix] 40 mg PO JARRED #30 tablet. 09/25/19 Allergies Allergy/AdvReac Type Severity Reaction Status Date / Time No Known Allergies Allergy Verified 10/03/19 14:02 Review of Systems ROS Statement: Those systems with pertinent positive or pertinent negative responses have been documented in the HPI. ROS Other: All systems not noted in ROS Statement are negative. Past Medical History Past Medical History: Coronary Artery Disease (CAD), Chest Pain / Angina, Heart Failure, GI Bleed, Hyperlipidemia, Hypertension, Myocardial Infarction ([place]), Pneumonia, Renal Disease, Vascular Disorder Additional Past Medical History / Comment(s): lower GI bleed, anemia, iron deficiency anemia, chronic kidney dx stage IV with dialysis , diverticulosis, c olon polyp (removed), PVD , neck fx as a young person with seizures following last one years ago. Last Myocardial Infarction Date:: 2013 History of Any Multi-Drug Resistant Organisms: None Reported Past Surgical History: Heart Catheterization With Stent Additional Past Surgical History / Comment(s): 11/19/14 EGD with bx and Colonoscopy with polypectomy, bilateral cataract removal with lens implants, shunt L arm. Past Anesthesia/Blood Transfusion Reactions: No Reported Reaction Date of Last Stent Placement:: 2007 Past Psychological History: No Psychological Hx Reported Smoking Status: Former smoker Past Alcohol Use History: None Reported Past Drug Use History: None Reported - Past Family History Father Family Medical History: Myocardial Infarction ([place]) Additional Family Medical History / Comment(s): Father at age 59 of a [place] Mother Family Medical History: CVA/TIA Additional Family Medical History / Comment(s): Mother of a brain hemorrage. General Exam - General Exam Comments Initial Comments: GENERAL: Patient is well-developed and well-nourished. Patient is nontoxic and well- hydrated and is in no acute distress. ENT: Neck is soft and supple. No significant lymphadenopathy is noted. Oropharynx is clear. Moist mucous membranes. Neck has full range of motion without eliciting any pain. EYES: The sclera were anicteric and conjunctiva were pink and moist. Extraocular movements were intact and pupils were equal round and reactive to light. Eyelids were unremarkable. PULMONARY: Unlabored respirations. Good breath sounds bilaterally. No audible rales rhonchi or wheezing was noted. CARDIOVASCULAR: There is a regular rate and rhythm without any murmurs gallops or rubs. ABDOMEN: Soft and nontender with normal bowel sounds. No palpable organomegaly was noted. There is no palpable pulsatile mass. SKIN: Skin is clear with no lesions or rashes and otherwise unremarkable. NEUROLOGIC: Patient is alert and oriented x3. Cranial nerves II through XII are grossly intact. Motor and sensory are also intact. Normal speech, volume and content. Symmetrical smile. MUSCULOSKELETAL: Normal extremities with adequate strength and full range of motion. No lower extremity swelling or edema. No calf tenderness. LYMPHATICS: No significant lymphadenopathy is noted PSYCHIATRIC: Normal psychiatric evaluation. Limitations: no limitations Course Vital Signs 10/03/19 10/03/19 10/03/19 11:57 12:56 13:00 Temperature 98.0 F Pulse Rate 81 77 Pulse Rate [ Right Sitting Pulse Oximetery ] Pulse Rate [ Right Standing Apical] Pulse Rate [ Right Supine Pulse Oximetery ] Respiratory 19 20 Rate Blood Pressure 168/75 Blood Pressure [Right Arm Sitting] Blood Pressure [Right Arm Standing] Blood Pressure [Right Arm Supine] O2 Sat by Pulse 95 93 L 94 L Oximetry 10/03/19 10/03/19 13:20 14:34 Temperature Pulse Rate 75 Pulse Rate [ 73 Right Sitting Pulse Oximetery ] Pulse Rate [ 75 Right Standing Apical] Pulse Rate [ 71 Right Supine Pulse Oximetery ] Respiratory 20 Rate Blood Pressure 169/79 Blood Pressure 156/86 [Right Arm Sitting] Blood Pressure 154/65 [Right Arm Standing] Blood Pressure 165/73 [Right Arm Supine] O2 Sat by Pulse 95 Oximetry Medical Decision Making - Medical Decision Making EKG shows normal sinus rhythm at 74 bpm AR interval is 152 QRS is 1:30 for QT intervals 460 QTC is 510. Patient's EKG shows a right bundle branch block. Patient is asymptomatic throughout his ED stay. Patient's post get dialyzed and is comfortable following up. Patient is not orthostatic - Lab Data Result diagrams: 10/03/19 13:02 10/03/19 13:02 Lab Results 10/03/19 10/03/19 10/03/19 Range/Units 13:02 13:02 13:24 WBC 11.7 H (3.8-10.6) k/uL RBC 3.39 L (4.30-5.90) m/uL Hgb 10.8 L (13.0-17.5) gm/dL Hct 31.8 L (39.0-53.0) % MCV 93.7 (80.0-100.0) fL MCH 31.7 (25.0-35.0) pg MCHC 33.9 (31.0-37.0) g/dL RDW 14.1 (11.5-15.5) % Plt Count 204 (150-450) k/uL Neutrophils % 74 % Lymphocytes % 10 % Monocytes % 8 % Eosinophils % 3 % Basophils % 3 % Neutrophils # 8.6 H (1.3-7.7) k/uL Lymphocytes # 1.1 (1.0-4.8) k/uL Monocytes # 0.9 (0-1.0) k/uL Eosinophils # 0.4 (0-0.7) k/uL Basophils # 0.4 H (0-0.2) k/uL PT 11.2 (9.0-12.0) sec INR 1.1 (<1.2) APTT 29.5 (22.0-30.0) sec Sodium 142 (137-145) mmol/L Potassium 5.2 H (3.5-5.1) mmol/L Chloride 102 (98-107) mmol/L Carbon Dioxide 25 (22-30) mmol/L Anion Gap 15 mmol/L BUN 32 H (9-20) mg/dL Creatinine 9.48 H* (0.66-1.25) mg/dL Est GFR (CKD-EPI)AfAm 5 (>60 ml/min/1.73 sqM) Est GFR (CKD-EPI)NonAf 5 (>60 ml/min/1.73 sqM) Glucose 93 (74-99) mg/dL Calcium 7.4 L (8.4-10.2) mg/dL Magnesium 2.1 (1.6-2.3) mg/dL Total Bilirubin 0.9 (0.2-1.3) mg/dL AST 33 (17-59) U/L ALT <6 (4-49) U/L Alkaline Phosphatase 50 (38-126) U/L Troponin I (0.000-0.034) ng/mL Total Protein 6.9 (6.3-8.2) g/dL Albumin 3.6 (3.5-5.0) g/dL 10/03/19 Range/Units 13:24 WBC (3.8-10.6) k/uL RBC (4.30-5.90) m/uL Hgb (13.0-17.5) gm/dL Hct (39.0-53.0) % MCV (80.0-100.0) fL MCH (25.0-35.0) pg MCHC (31.0-37.0) g/dL RDW (11.5-15.5) % Plt Count (150-450) k/uL Neutrophils % % Lymphocytes % % Monocytes % % Eosinophils % % Basophils % % Neutrophils # (1.3-7.7) k/uL Lymphocytes # (1.0-4.8) k/uL Monocytes # (0-1.0) k/uL Eosinophils # (0-0.7) k/uL Basophils # (0-0.2) k/uL PT (9.0-12.0) sec INR (<1.2) APTT (22.0-30.0) sec Sodium (137-145) mmol/L Potassium (3.5-5.1) mmol/L Chloride (98-107) mmol/L Carbon Dioxide (22-30) mmol/L Anion Gap mmol/L BUN (9-20) mg/dL Creatinine (0.66-1.25) mg/dL Est GFR (CKD-EPI)AfAm (>60 ml/min/1.73 sqM) Est GFR (CKD-EPI)NonAf (>60 ml/min/1.73 sqM) Glucose (74-99) mg/dL Calcium (8.4-10.2) mg/dL Magnesium (1.6-2.3) mg/dL Total Bilirubin (0.2-1.3) mg/dL AST (17-59) U/L ALT (4-49) U/L Alkaline Phosphatase (38-126) U/L Troponin I 0.026 (0.000-0.034) ng/mL Total Protein (6.3-8.2) g/dL Albumin (3.5-5.0) g/dL Disposition Clinical Impression: Near syncope Disposition: HOME SELF-CARE Instructions (If sedation given, give patient instructions): Near Syncope (ED) Is patient prescribed a controlled substance at d/c from ED?: No Referrals: Edward Bowen MD [Primary Care Provider] - 1-2 days Time of Disposition: 15:02
[2019-10-03 13:13] LABS: Basophils # (A) 0.4 k/uL (0-0.2); Basophils % (A) 3 %; Eosinophils # (A) 0.4 k/uL (0-0.7); Eosinophils % (A) 3 %; HCT 31.8 % (39.0-53.0); HGB 10.8 gm/dL (13.0-17.5); Lymphocytes # (A) 1.1 k/uL (1.0-4.8); Lymphocytes % (A) 10 %; MCH 31.7 pg (25.0-35.0); MCHC 33.9 g/dL (31.0-37.0); MCV 93.7 fL (80.0-100.0); Mean Platelet Volume 9.5; Monocytes # (A) 0.9 k/uL (0-1.0); Monocytes % (A) 8 %; Neutrophils # (A) 8.6 k/uL (1.3-7.7); Neutrophils % (A) 74 %; Platelet Count 204 k/uL (150-450); RBC 3.39 m/uL (4.30-5.90); RDW 14.1 % (11.5-15.5); WBC 11.7 k/uL (3.8-10.6)
[2019-10-03 13:28] LABS: ALT <6 U/L (4-49); AST 33 U/L (17-59); Albumin 3.6 g/dL (3.5-5.0); Alkaline Phosphatase 50 U/L (38-126); Anion Gap 15 mmol/L; Blood Urea Nitrogen 32 mg/dL (9-20); Calcium 7.4 mg/dL (8.4-10.2); Carbon Dioxide 25 mmol/L (22-30); Chloride 102 mmol/L (98-107); Glucose 93 mg/dL (74-99); Magnesium 2.1 mg/dL (1.6-2.3); Non-African American GFR(CKD) 5 (>60 ml/min/1.73 sqM); Sodium 142 mmol/L (137-145); Total Bilirubin 0.9 mg/dL (0.2-1.3); Total Protein 6.9 g/dL (6.3-8.2)
[2019-10-03 13:32] LABS: African American GFR (CKD) 5 (>60 ml/min/1.73 sqM)
[2019-10-03 13:41] LABS: Potassium 5.2 mmol/L (3.5-5.1)
[2019-10-03 13:47] LABS: INR 1.1 (<1.2); Partial Thromboplastin Time 29.5 sec (22.0-30.0); Prothrombin Time 11.2 sec (9.0-12.0)
[2019-10-03 15:15] VITALS: BP 145/60; PULSE 74; RESP 16
== END 2019-10-03 15:14 | disposition home or self-care (01) ==
LOC: EC 11:55
DX: R55 Syncope and collapse (principal); R53.1 Weakness; I25.10 Atherosclerotic heart disease of native coronary artery without angina pectoris; E78.5 Hyperlipidemia, unspecified; I25.2 Old myocardial infarction; I13.0 Hypertensive heart and chronic kidney disease with heart failure and stage 1 through stage 4 chronic kidney disease, or unspecified chronic kidney disease; N18.4 Chronic kidney disease, stage 4 (severe); I50.9 Heart failure, unspecified; I73.9 Peripheral vascular disease, unspecified; Z99.2 Dependence on renal dialysis; Z95.5 Presence of coronary angioplasty implant and graft; Z87.891 Personal history of nicotine dependence; Z79.899 Other long term (current) drug therapy
CPT/HCPCS: 36415; 80053; 83735; 84484; 85025; 85610; 85730; 93005; 99284

== ENCOUNTER 2020-07-02 14:54 | Inpatient (IN) | payer MEDICARE ==
[2020-07-02] MEDS ORDERED: SODIUM CHLORIDE 0.9% 500 ML 500 ML IV STA (15:21)
[2020-07-02] MEDS ORDERED: DILTIAZEM DRIP BOLUS FROM BAG 1 MG SOLN IV ONE (15:22)
[2020-07-02] MEDS ORDERED: HEPARIN SODIUM,PORCINE 5,000 UNIT/ML 1 ML VIAL IV PRN (15:27)
[2020-07-02] MEDS ORDERED: HEPARIN SODIUM,PORCINE 5,000 UNIT/ML 1 ML VIAL IV ONE (15:27)
--- NOTE | 2020-07-02 15:27 | ED ---
General Adult HPI - General Chief complaint: Arrhythmia/Palpitations Stated complaint: Sent by doctor Time Seen by Provider: 07/02/20 15:01 Source: patient, family Mode of arrival: wheelchair Limitations: no limitations - History of Present Illness Initial comments: Dictation was produced using [employer] dictation software. please excuse any grammatical, word or spelling errors. This patient was cared for during a federal and state declared state of emergency secondary to Covid 19 Chief Complaint: 80-year-old male presents with palpitations History of Present Illness: In the in 80-year-old male he has multiple comorbidities. He was at dialysis today when he was noted to have elevated heart rate. He was sent to the emergency department. Patient has no complaints at this time. He however does report some mild shortness of breath. Patient denies any history of cardiac disease. He is not sure what medications he takes. He is not sure if he takes any medications for A. fib. The ROS documented in this emergency department record has been reviewed and confirmed by me. Those systems with pertinent positive or negative responses have been documented in the HPI. All other systems are other negative and/or noncontributory. PHYSICAL EXAM: General Impression: Alert and oriented x3, not in acute distress HEENT: Normocephalic atraumatic, extra-ocular movements intact, pupils equal and reactive to light bilaterally, mucous membranes moist. Cardiovascular: Irregularly irregular rhythm Chest: Able to complete full sentences, no retractions, no tachypnea Abdomen: abdomen soft, non-tender, non-distended, no organomegaly Musculoskeletal: Pulses present and equal in all extremities, no peripheral edema Motor: no focal deficits noted Neurological: CN II-XII grossly intact, no focal motor or sensory deficits noted Skin: Intact with no visualized rashes Psych: Normal affect and mood ED course: 79-year-old male presents with tachycardia dysrhythmia vital signs upon arrival shows heart rate of 155, rest of vital signs within acceptable limits. EKG shows A. fib with RVR. Chart review was performed. He used to be an September however is for a thrombus seen in internal jugular vein. Patient denies any symptoms. It is unclear how long patient has been in A. fib. Patient started on Cardizem and heparin. Laboratory evaluation obtained. CBC, coag panel, metabolic panel is unremarkable. All his labs appear to be at baseline. Chest x-ray shows mild pulmonary vascular congestion. This likely secondary to A. fib. Patient reevaluated after some time on Cardizem and patient's heart rate is improved. P atient be admitted with consultation to cardiology. EKG interpretation: Ventricular rate 41, A. fib with RVR, QRS 150, QTc 496. No NC prolongation, no QTC prolongation, no ST or T-wave changes noted. - Related Data Home Medications Medication Instructions Recorded Confirmed Atorvastatin [Lipitor] 40 mg PO DAILY 02/27/19 10/03/19 Calcium Acetate [PhosLo] 667 mg PO BID 02/27/19 10/03/19 Metoprolol Tartrate [Lopressor] 25 mg PO BID 02/27/19 10/03/19 Awilda-Fred 0.8mg 0.8 mg PO DAILY 02/27/19 10/03/19 amLODIPine [Norvasc] 10 mg PO DAILY 02/27/19 10/03/19 hydrALAZINE HCL [Apresoline] 50 mg PO BID 02/27/19 10/03/19 Previous Rx's Medication Instructions Recorded Ipratropium-Albuterol Nebulize 3 ml INHALATION RT-QID #120 01/20/18 [Duoneb 0.5 mg-3 mg/3 ml Soln] ampul.neb Apixaban [Eliquis] 5 mg PO BID #60 tab 09/25/19 Pantoprazole [Protonix] 40 mg PO AC-BRKFST #30 tablet. 09/25/19 lisinopriL [Zestril] 2.5 mg PO DAILY #30 tab 09/25/19 Allergies Allergy/AdvReac Type Severity Reaction Status Date / Time No Known Allergies Allergy Verified 07/02/20 15:00 Review of Systems ROS Statement: Those systems with pertinent positive or pertinent negative responses have been documented in the HPI. ROS Other: All systems not noted in ROS Statement are negative. Past Medical History Past Medical History: Coronary Artery Disease (CAD), Chest Pain / Angina, Heart Failure, GI Bleed, Hyperlipidemia, Hypertension, Myocardial Infarction ([place]), Pneumonia, Renal Disease, Vascular Disorder Additional Past Medical History / Comment(s): lower GI bleed, anemia, iron deficiency anemia, chronic kidney dx stage IV with dialysis , diverticulosis, colon polyp (removed), PVD , neck fx as a young person with seizures following last one years ago. Last Myocardial Infarction Date:: 2013 History of Any Multi-Drug Resistant Organisms: None Reported Past Surgical History: Heart Catheterization With Stent Additional Past Surgical History / Comment(s): 11/19/14 EGD with bx and Colonoscopy with polypectomy, bilateral cataract removal with lens implants, shunt L arm. Past Anesthesia/Blood Transfusion Reactions: No Reported Reaction Date of Last Stent Placement:: 2007 Past Psychological History: No Psychological Hx Reported Smoking Status: Current every day smoker Past Alcohol Use History: None Reported Past Drug Use History: None Reported - Past Family History Father Family Medical History: Myocardial Infarction ([place]) Additional Family Medical History / Comment(s): Father at age 59 of a [place] Mother Family Medical History: CVA/TIA Additional Family Medical History / Comment(s): Mother of a brain hemorrage. General Exam Limitations: no limitations Course Vital Signs 07/02/20 07/02/20 07/02/20 14:57 15:13 16:00 Temperature 98.0 F Pulse Rate 55 L 155 H 123 H Respiratory 20 18 18 Rate Blood Pressure 128/80 113/78 112/69 O2 Sat by Pulse 97 97 100 Oximetry Medical Decision Making - Lab Data Result diagrams: 07/02/20 15:29 07/02/20 15:29 Lab Results 07/02/20 07/02/20 07/02/20 Range/Units 15:29 15:29 15:29 WBC 7.7 (3.8-10.6) k/uL RBC 3.68 L (4.30-5.90) m/uL Hgb 11.6 L (13.0-17.5) gm/dL Hct 35.0 L (39.0-53.0) % MCV 95.1 (80.0-100.0) fL MCH 31.7 (25.0-35.0) pg MCHC 33.3 (31.0-37.0) g/dL RDW 12.9 (11.5-15.5) % Plt Count 150 (150-450) k/uL Neutrophils % 71 % Lymphocytes % 20 % Monocytes % 7 % Eosinophils % 1 % Basophils % 1 % Neutrophils # 5.4 (1.3-7.7) k/uL Lymphocytes # 1.5 (1.0-4.8) k/uL Monocytes # 0.5 (0-1.0) k/uL Eosinophils # 0.1 (0-0.7) k/uL Basophils # 0.1 (0-0.2) k/uL PT 11.3 (9.0-12.0) sec INR 1.1 (<1.2) APTT 24.4 (22.0-30.0) sec Sodium 137 (137-145) mmol/L Potassium 4.5 (3.5-5.1) mmol/L Chloride 95 L (98-107) mmol/L Carbon Dioxide 29 (22-30) mmol/L Anion Gap 13 mmol/L BUN 31 H (9-20) mg/dL Creatinine 4.76 H (0.66-1.25) mg/dL Est GFR (CKD-EPI)AfAm 12 (>60 ml/min/1.73 sqM) Est GFR (CKD-EPI)NonAf 11 (>60 ml/min/1.73 sqM) Glucose 115 H (74-99) mg/dL Calcium 8.9 (8.4-10.2) mg/dL Magnesium 2.2 (1.6-2.3) mg/dL Total Bilirubin 1.0 (0.2-1.3) mg/dL AST 31 (17-59) U/L ALT 21 (4-49) U/L Alkaline Phosphatase 56 (38-126) U/L Total Protein 6.7 (6.3-8.2) g/dL Albumin 4.3 (3.5-5.0) g/dL Disposition Clinical Impression: Atrial fibrillation with rapid ventricular response Disposition: ADMITTED IP TO THIS HOSP Condition: Fair Referrals: Edward Bowen MD [Primary Care Provider] - 1-2 days Decision Time: 16:08
[2020-07-02] MEDS ORDERED: DILTIAZEM 125 MG in SODIUM CHLORIDE 0.9% 100 ML IV SCH (15:30)
[2020-07-02 15:40] LABS: Basophils # (A) 0.1 k/uL (0-0.2); Basophils % (A) 1 %; Eosinophils # (A) 0.1 k/uL (0-0.7); Eosinophils % (A) 1 %; HGB 11.6 gm/dL (13.0-17.5); Lymphocytes # (A) 1.5 k/uL (1.0-4.8); Lymphocytes % (A) 20 %; MCH 31.7 pg (25.0-35.0); MCHC 33.3 g/dL (31.0-37.0); MCV 95.1 fL (80.0-100.0); Mean Platelet Volume 9.1; Monocytes # (A) 0.5 k/uL (0-1.0); Monocytes % (A) 7 %; Neutrophils # (A) 5.4 k/uL (1.3-7.7); Neutrophils % (A) 71 %; Platelet Count 150 k/uL (150-450); RBC 3.68 m/uL (4.30-5.90); RDW 12.9 % (11.5-15.5); WBC 7.7 k/uL (3.8-10.6)
[2020-07-02] MEDS: HEPARIN SOD,PORK IN 0.45% NACL 25,000 UNIT in 0.45% NACL 1 250ML.BAG IV SCH (15:48)
[2020-07-02 15:49] LABS: Albumin 4.3 g/dL (3.5-5.0); Calcium 8.9 mg/dL (8.4-10.2); Magnesium 2.2 mg/dL (1.6-2.3); Potassium 4.5 mmol/L (3.5-5.1); Total Protein 6.7 g/dL (6.3-8.2)
[2020-07-02 15:50] LABS: INR 1.1 (<1.2); Partial Thromboplastin Time 24.4 sec (22.0-30.0); Prothrombin Time 11.3 sec (9.0-12.0)
--- NOTE | 2020-07-02 15:53 | XR ---
EXAMINATION TYPE: XR chest 1V portable DATE OF EXAM: 07/02/2020 Comparison: 09/23/2019 Clinical History: 80-year-old male dysrhythmia Findings: Heart mildly enlarged. Diffuse interstitial and vascular prominence. No adriel consolidation or pleura l effusion. Some strandy atelectasis at the left base. Impression: Mild cardiomegaly and interstitial/vascular prominence. Correlate to exclude mild pulmonary vascular congestion.
[2020-07-02] MEDS ORDERED: NALOXONE 0.4 MG/ML 1 ML VIAL IV PRN (16:08)
--- NOTE | 2020-07-02 17:59 | P.HPIM ---
History of Present Illness Patient is a pleasant 80-year-old male who was sent in from dialysis center for new onset atrial fibrillation. Patient denied any chest pain denied any shortness of breath lightheadedness or dizziness. Patient does have history of end-stage renal disease patient had an EF of around 40-45% in the past patient denied orthopnea paroxysmal nocturnal dyspnea. Patient is on metoprolol patient had a history of coronary artery disease with previous stents patient takes 25 mg twice a day of metoprolol which will be changed to 50 mg twice a day patient was started on Cardizem which will be weaned off. Patient is presently on IV heparin patient has mildly elevated troponin we'll repeat 2 more sets of troponins. Patient denied any fever chills dysuria although patient was comparing of vomiting whenever he eats for about 2 weeks patient doesn't have any pain in the right upper quadrant denied any other abdominal pain. Patient doesn't have any other signs or symptoms of sepsis at this time. Review of Systems REVIEW OF SYSTEMS: CONSTITUTIONAL: No fever, no malaise, no fatigue. HEENT: No recent visual problems or hearing problems. Denied any sore throat. CARDIOVASCULAR: No chest pain, orthopnea, PND, no palpitations, no syncope. PULMONARY: No shortness of breath, no cough, no hemoptysis. GASTROINTESTINAL: No diarrhea, no abdominal pain. NEUROLOGICAL: No headaches, no weakness, no numbness. HEMATOLOGICAL: Denies any bleeding or petechiae. GENITOURINARY: Denies any burning micturition, frequency, or urgency. MUSCULOSKELETAL/RHEUMATOLOGICAL: Denies any joint pain, swelling, or any muscle pain. ENDOCRINE: Denies any polyuria or polydipsia. The rest of the 14-point review of systems is negative. Past Medical History Past Medical History: Coronary Artery Disease (CAD), Chest Pain / Angina, Heart Failure, GI Bleed, Hyperlipidemia, Hypertension, Myocardial Infarction ([place]), Pneumonia, Renal Disease, Vascular Disorder Additional Past Medical History / Comment(s): lower GI bleed, anemia, iron deficiency anemia, chronic kidney dx stage IV with dialysis , diverticulosis, colon polyp (removed), PVD , neck fx as a young person with seizures following last one years ago. Last Myocardial Infarction Date:: 2013 History of Any Multi-Drug Resistant Organisms: None Reported Past Surgical History: Heart Catheterization With Stent Additional Past Surgical History / Comment(s): 11/19/14 EGD with bx and Colonoscopy with polypectomy, bilateral cataract removal with lens implants, shunt L arm. Past Anesthesia/Blood Transfusion Reactions: No Reported Reaction Date of Last Stent Placement:: 2007 Smoking Status: Current every day smoker - Past Family History Father Family Medical History: Myocardial Infarction ([place]) Additional Family Medical History / Comment(s): Father at age 59 of a [place] Mother Family Medical History: CVA/TIA Additional Family Medical History / Comment(s): Mother of a brain hemorrage. Medications and Allergies Home Medications Medication Instructions Recorded Confirmed Type Metoprolol Tartrate [Lopressor] 25 mg PO BID 02/27/19 07/02/20 History Awilda-Fred 0.8mg 0.8 mg PO DAILY 02/27/19 07/02/20 History Atorvastatin Calcium [Lipitor] 40 mg PO DAILY 07/02/20 07/02/20 History Calcium Acetate 668mg 1 tab PO TID-W/MEALS 07/02/20 07/02/20 History Allergies Allergy/AdvReac Type Severity Reaction Status Date / Time No Known Allergies Allergy Verified 07/02/20 16:30 Physical Exam Vitals: Vital Signs Temp Pulse Pulse Resp BP BP Pulse Ox 07/02/20 17:39 98.1 F 132 H 20 143/70 100 07/02/20 17:02 120 H 16 117/74 97 07/02/20 16:00 123 H 18 112/69 100 07/02/20 15:13 155 H 18 113/78 97 07/02/20 14:57 98.0 F 55 L 20 128/80 97 Intake and Output 07/02/20 07/02/20 07/02/20 06:59 14:59 22:59 Other: Weight 65.771 kg 65.771 kg PHYSICAL EXAMINATION: GENERAL: The patient is alert and oriented x3, not in any acute distress. Well developed, well nourished. HEENT: Pupils are round and equally reacting to light. EOMI. No scleral icterus. No conjunctival pallor. Normocephalic, atraumatic. No pharyngeal erythema. No thyromegaly. CARDIOVASCULAR: S1 and S2 present. No murmurs, rubs, or gallops. Irregular, tachycardic PULMONARY: Chest is clear to auscultation, no wheezing or crackles. Mildly diminished air entry ABDOMEN: Soft, nontender, nondistended, normoactive bowel sounds. No palpable organomegaly. MUSCULOSKELETAL: No joint swelling or deformity. EXTREMITIES: No cyanosis, clubbing, or pedal edema. NEUROLOGICAL: Gross neurological examination did not reveal any focal deficits. SKIN: No rashes. Results CBC & Chem 7: 07/02/20 15:29 07/02/20 15:29 Labs: Abnormal Lab Results - Last 24 Hours (Table) 07/02/20 07/02/20 07/02/20 Range/Units 15:29 15:29 15:29 RBC 3.68 L (4.30-5.90) m/uL Hgb 11.6 L (13.0-17.5) gm/dL Hct 35.0 L (39.0-53.0) % Chloride 95 L (98-107) mmol/L BUN 31 H (9-20) mg/dL Creatinine 4.76 H (0.66-1.25) mg/dL Glucose 115 H (74-99) mg/dL Troponin I 0.167 H* (0.000-0.034) ng/mL Thrombosis Risk Factor Assmnt - Choose All That Apply Each Risk Factor Represents 3 Points: Age 75 years or older Thrombosis Risk Factor Assessment Total Risk Factor Score: 3 Thrombosis Risk Factor Assessment Level: Moderate Risk Assessment and Plan Plan: -New-onset atrial fibrillation with rapid unclear rate: Patient is on Cardizem which will be weaned off patient probably will be discharged on Eliquis for now we'll continue with heparin IV, cardiology was consulted and they will evaluate the patient. -Mildly elevated troponin secondary to most probably atrial fibrillation and tachycardia. Will repeat a 2 more sets of of troponins. -End-stage failure chronic systolic dysfunction without any acute exacerbation. -End-stage renal disease hemodialysis dependent, etiology of renal failure is not clear and the patient is Wednesday and Wednesday hemodialysis schedule. 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
[2020-07-02] MEDS: NICOTINE 14MG/24HR PATCH TRANSDERM SCH (18:05)
[2020-07-02] MEDS: METOPROLOL TARTRATE 50 MG TAB PO SCH (18:05)
[2020-07-02] MEDS ORDERED: ONDANSETRON 4 MG/2 ML VIAL IVP PRN (21:56)
[2020-07-03 06:26] LABS: Calcium 8.2 mg/dL (8.4-10.2); Magnesium 2.4 mg/dL (1.6-2.3)
[2020-07-03] MEDS: CALCIUM ACETATE 667 MG TAB PO SCH ×3 (06:36→17:17)
[2020-07-03] MEDS: ATORVASTATIN 40 MG TAB PO SCH (08:23)
[2020-07-03] MEDS: METOPROLOL TARTRATE 50 MG TAB PO SCH ×2 (08:23→20:39)
[2020-07-03] MEDS: NICOTINE 14MG/24HR PATCH TRANSDERM SCH (08:23)
[2020-07-03] MEDS: FOLIC ACID-VIT B COMPLEX-VIT C 1 CAP PO SCH (08:24)
[2020-07-03 09:20] LABS: INR 1.2 (<1.2); Prothrombin Time 12.3 sec (9.0-12.0)
--- NOTE | 2020-07-03 09:35 | P.NPCON ---
History of Present Illness - Reason for Consult end stage renal disease - History of Present Illness Reason for consultation: End-stage renal disease History of present illness: Patient is a 80-year-old male seen in renal consultation for end-stage renal disease. He is maintained on hemodialysis on Wednesday schedule via left upper extremity AV fistula. Patient states he did complete h emodialysis yesterday but his blood pressure PhosLo at the end of the treatment. He was also noted to be tachycardic and was subsequently sent to the hospital. Currently his blood pressure and heart rate of stable. He denies any dizziness or syncopal episodes. No vomiting or diarrhea. No fever or chills. No abdominal pain. Chest x-ray revealed mild vascular congestion. He is currently on 20 L in the cannula. No other complaints at this time. Vital signs are stable. General: The patient appeared well nourished and normally developed. HEENT: Head exam is unremarkable. Neck is without jugular venous distension. LUNGS: Lungs are clear to auscultation and percussion. Breath sounds decreased. HEART: Rate and Rhythm are regular. ABDOMEN: Soft, nontender. EXTREMITITES: No clubbing, cyanosis, or edema. Right below the knee amputation. Past Medical History Past Medical History: Coronary Artery Disease (CAD), Chest Pain / Angina, Heart Failure, GI Bleed, Hyperlipidemia, Hypertension, Myocardial Infarction ([place]), Pneumonia, Renal Disease, Vascular Disorder Additional Past Medical History / Comment(s): lower GI bleed, anemia, iron deficiency anemia, chronic kidney dx stage IV with dialysis , diverticulosis, colon polyp (removed), PVD , neck fx as a young person with seizures following last one years ago. Last Myocardial Infarction Date:: 2013 History of Any Multi-Drug Resistant Organisms: None Reported Past Surgical History: Heart Catheterization With Stent Additional Past Surgical History / Comment(s): 11/19/14 EGD with bx and Colonoscopy with polypectomy, bilateral cataract removal with lens implants, shunt L arm. Past Anesthesia/Blood Transfusion Reactions: No Reported Reaction Date of Last Stent Placement:: 2007 Smoking Status: Current every day smoker - Past Family History Father Family Medical History: Myocardial Infarction ([place]) Additional Family Medical History / Comment(s): Father at age 59 of a [place] Mother Family Medical History: CVA/TIA Additional Family Medical History / Comment(s): Mother of a brain hemorrage. Medications and Allergies Home Medications Medication Instructions Recorded Confirmed Type Metoprolol Tartrate [Lopressor] 25 mg PO BID 02/27/19 07/02/20 History Awilda-Fred 0.8mg 0.8 mg PO DAILY 02/27/19 07/02/20 History Atorvastatin Calcium [Lipitor] 40 mg PO DAILY 07/02/20 07/02/20 History Calcium Acetate 668mg 1 tab PO TID-W/MEALS 07/02/20 07/02/20 History Allergies Allergy/AdvReac Type Severity Reaction Status Date / Time No Known Allergies Allergy Verified 07/02/20 16:30 Physical Exam Vitals: Vital Signs Temp Pulse Pulse Resp BP BP Pulse Ox 07/03/20 03:50 98.1 F 68 18 133/63 95 07/03/20 00:00 97.9 F 68 18 119/59 100 07/02/20 20:00 97.8 F 70 18 97/53 100 07/02/20 17:39 98.1 F 132 H 20 143/70 100 07/02/20 17:02 120 H 16 117/74 97 07/02/20 16:00 123 H 18 112/69 100 07/02/20 15:13 155 H 18 113/78 97 07/02/20 14:57 98.0 F 55 L 20 128/80 97 Intake and Output 07/02/20 07/03/20 07/03/20 22:59 06:59 14:59 Intake Total 54.988 180 Balance 54.988 180 Intake: Intake, IV Titration 54.988 Amount Heparin Sod,Pork in 0.45% 54.988 NaCl 25,000 unit In 0.45 % NaCl 1 250ml.bag @ 12 UNITS/KG/HR 7.893 mls/hr IV .Q24H [facility] Rx#: [id number] Oral 180 Other: Voiding Method Toilet Toilet Urinal # Voids 1 0 # Bowel Movements 0 Weight 65.771 kg 67.8 kg Results - Lab Results Most recent lab results Calcium 8.2 mg/dL (8.4-10.2) L 07/03/20 05:42 Phosphorus 7.1 mg/dL (2.5-4.5) H 07/02/20 22:11 Magnesium 2.4 mg/dL (1.6-2.3) H 07/03/20 05:42 07/02/20 15:29 07/03/20 05:42 Assessment and Plan Plan: Assessment: 1. End-stage renal disease maintained on hemodialysis on Wednesday schedule via left upper extremity AV fistula. 2. Chronic kidney disease mineral bone disease maintained on PhosLo. 3. A. fib with RVR maintained on heparin drip and metoprolol. 4. Peripheral vascular disease status post right below the knee amputation. Plan: Hemodialysis tomorrow. Thank you for the consultation. I will continue to follow patient with you during his hospital stay.
--- NOTE | 2020-07-03 10:11 | P.PN ---
Subjective 80-year-old pleasant male admitted for atrial fibrillation with rapid ventricular rate patient heart rate is presently controlled increase the dose of metoprolol patient is off Cardizem at this time. Patient is being started on Coumadin was evaluated by cardiology echocardiogram is being obtained patient troponin was 0.16 yesterday went up to 1.09 still can be from men's end-stage renal disease. Patient will undergo hemodialysis will be monitored overnight today possibly of discharge tomorrow if cleared by cardiology. Patient is clinically although is feeling much better today. Constitutional: Denied any fatigue denied any fever. Cardio vascular: denied any chest pain, palpitations Gastrointestinal denied any nausea vomiting Pulmonary: Denied any shortness of breath cough Neurologic denied any new focal deficits All inpatient medications were reviewed and appropriate changes in these medications as dictated in the interval history and assessment and plan. Objective - Vital Signs Vital signs: Vital Signs Temp 98.1 F 07/03/20 03:50 Pulse 73 07/03/20 08:00 Resp 20 07/03/20 08:00 BP 143/64 07/03/20 08:00 Pulse Ox 99 07/03/20 08:00 Intake & Output 07/02/20 07/03/20 07/03/20 18:59 06:59 18:59 Intake Total 54.988 180 Balance 54.988 180 Weight 65.771 kg 67.8 kg Intake: Intake, IV Titration 54.988 Amount Heparin Sod,Pork in 0.45% 54.988 NaCl 25,000 unit In 0.45 % NaCl 1 250ml.bag @ 12 UNITS/KG/HR 7.893 mls/hr IV .Q24H [facility] Rx#: [id number] Oral 180 Other: Voiding Method Toilet Urinal # Voids 1 0 # Bowel Movements 0 - Exam PHYSICAL EXAMINATION: GENERAL: The patient is alert and oriented x3, not in any acute distress. Well developed, well nourished. HEENT: Pupils are round and equally reacting to light. EOMI. No scleral icterus. No conjunctival pallor. Normocephalic, atraumatic. No pharyngeal erythema. No thyromegaly. CARDIOVASCULAR: S1 and S2 present. No murmurs, rubs, or gallops. PULMONARY: Chest is clear to auscultation, no wheezing or crackles. ABDOMEN: Soft, nontender, nondistended, normoactive bowel sounds. No palpable organomegaly. MUSCULOSKELETAL: No joint swelling or deformity. EXTREMITIES: No cyanosis, clubbing, or pedal edema. NEUROLOGICAL: Gross neurological examination did not reveal any focal deficits. SKIN: No rashes. - Labs CBC & Chem 7: 07/02/20 15:29 07/03/20 05:42 Labs: Abnormal Lab Results - Last 24 Hours (Table) 07/02/20 07/02/20 07/02/20 Range/Units 15:29 15:29 15:29 RBC 3.68 L (4.30-5.90) m/uL Hgb 11.6 L (13.0-17.5) gm/dL Hct 35.0 L (39.0-53.0) % PT (9.0-12.0) sec INR (<1.2) APTT (22.0-30.0) sec Sodium (137-145) mmol/L Chloride 95 L (98-107) mmol/L BUN 31 H (9-20) mg/dL Creatinine 4.76 H (0.66-1.25) mg/dL Glucose 115 H (74-99) mg/dL Calcium (8.4-10.2) mg/dL Phosphorus (2.5-4.5) mg/dL Magnesium (1.6-2.3) mg/dL Troponin I 0.167 H* (0.000-0.034) ng/mL 07/02/20 07/02/20 07/02/20 Range/Units 18:21 22:11 22:11 RBC (4.30-5.90) m/uL Hgb (13.0-17.5) gm/dL Hct (39.0-53.0) % PT (9.0-12.0) sec INR (<1.2) APTT (22.0-30.0) sec Sodium (137-145) mmol/L Chloride (98-107) mmol/L BUN (9-20) mg/dL Creatinine (0.66-1.25) mg/dL Glucose (74-99) mg/dL Calcium (8.4-10.2) mg/dL Phosphorus 7.1 H (2.5-4.5) mg/dL Magnesium (1.6-2.3) mg/dL Troponin I 0.449 H* 1.090 H* (0.000-0.034) ng/mL 07/02/20 07/03/20 07/03/20 Range/Units 22:11 05:42 05:42 RBC (4.30-5.90) m/uL Hgb (13.0-17.5) gm/dL Hct (39.0-53.0) % PT (9.0-12.0) sec INR (<1.2) APTT 37.1 H 54.9 H (22.0-30.0) sec Sodium 136 L (137-145) mmol/L Chloride (98-107) mmol/L BUN 50 H (9-20) mg/dL Creatinine 6.18 H (0.66-1.25) mg/dL Glucose 101 H (74-99) mg/dL Calcium 8.2 L (8.4-10.2) mg/dL Phosphorus (2.5-4.5) mg/dL Magnesium 2.4 H (1.6-2.3) mg/dL Troponin I (0.000-0.034) ng/mL 07/03/20 Range/Units 05:42 RBC (4.30-5.90) m/uL Hgb (13.0-17.5) gm/dL Hct (39.0-53.0) % PT 12.3 H (9.0-12.0) sec INR 1.2 H (<1.2) APTT (22.0-30.0) sec Sodium (137-145) mmol/L Chloride (98-107) mmol/L BUN (9-20) mg/dL Creatinine (0.66-1.25) mg/dL Glucose (74-99) mg/dL Calcium (8.4-10.2) mg/dL Phosphorus (2.5-4.5) mg/dL Magnesium (1.6-2.3) mg/dL Troponin I (0.000-0.034) ng/mL Assessment and Plan Plan: -New-onset atrial fibrillation with rapid unclear rate: Patient is off Cardizem patient is presently on metoprolol 50 twice a day and the patient was started on Coumadin by cardiology. -Mildly elevated troponin secondary to most probably atrial fibrillation and tachycardia. repeat troponins are significantly higher than the first one still can be from renal failure, cardiology evaluated the patient further management as per them -End-stage failure chronic systolic dysfunction without any acute exacerbation. -End-stage renal disease hemodialysis dependent, etiology of renal failure is not clear and the patient is Wednesday and Wednesday hemodialysis sched ul. 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
--- NOTE | 2020-07-03 11:00 | P.CRDCN ---
History of Present Illness History of present illness: HISTORY OF PRESENTING ILLNESS This is a pleasant 80-year-old male past medical history significant for coronary artery disease status post PCI to the mid RCA in 2007, ischemic cardiomyopathy, valvular heart disease, chronic kidney disease on hemodialysis, hypertension, dyslipidemia and chronic nicotine dependence. 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 We have been asked to see in consultation for atrial fibrillation. He was sent to the emergency room after dialysis secondary to elevated heart rate and shortness of breath. EKG on arrival revealed atrial fibrillation with a heart rate of 141. He was initiated on Cardizem infusion in the emergency department along with IV heparin. Chest x-ray reveals mild pulmonary vascular congestion. Laboratory data reviewed, WBC 7.7, hemoglobin 11.6, platelets 150, sodium 136, potassium 5.0, creatinine 6.18, magnesium 2.2, troponin 0.167, 0.449, 1.09 and TSH 2.86. He has converted to sinus current daily cardiac medications include Lopressor 25 mg twice a day and atorvastatin 40 mg daily. mechanism. Previous echocardiogram obtained in 2018 revealed impaired LV systolic function with ejection fraction 40-45%, mild to moderate mitral regurgitation, mild tricuspid regurgitation and severe pulmonary hyperte nsion with an RVSP of 58 mmHg. REVIEW OF SYSTEMS At the time of my exam: CONSTITUTIONAL: Denies fever or chills. CARDIOVASCULAR: Denies chest pain, shortness of breath, orthopnea, PND or palpitations. RESPIRATORY: Denies cough. GASTROINTESTINAL: Denies abdominal pain, diarrhea, constipation, nausea or vomiting. MUSCULOSKELETAL: Denies myalgias. NEUROLOGIC: Denies numbness, tingling or weakness. ENDOCRINE: Denies fatigue, weight change, polydipsia or polyurina. GENITOURINARY: Denies burning, hematuria or urgency with micturation. HEMATOLOGIC: Denies history of anemia or bleeding. PHYSICAL EXAMINATION Blood pressure 143/64 heart rate 73 afebrile and maintaining oxygen saturation on nasal cannula. CONSTITUTIONAL: No apparent distress. HEENT: Head is normocephalic. Pupils are equal, round. Sclerae anicteric. Mucous membranes of the mouth are moist. No JVD. No carotid bruit. CHEST EXAMINATION: Lungs are clear to auscultation. No chest wall tenderness is noted on palpation or with deep breathing. Diminished bilaterally. HEART EXAMINATION: Regular rate and rhythm. S1, S2 heard. Systolic ejection murmur at the left sternal border, no gallops or rub. ABDOMEN: Soft, nontender. Positive bowel sounds. EXTREMITIES: 2+ peripheral pulses, no lower extremity edema and no calf tenderness. NEUROLOGIC EXAMINATION: Patient is awake, alert and oriented x3. ASSESSMENT Paroxysmal atrial fibrillation, new onset. Converted to sinus mechanism. End-stage renal disease on hemodialysis History of coronary artery disease status post PCI to the RCA 2007 Ischemic cardiomyopathy Hypertension Dyslipidemia Chronic nicotine dependence PLAN Obtain postconversion EKG. Continue heparin infusion and we will initiate Coumadin 7.5 mg by mouth today. Obtain 2-D echocardiogram and Doppler study to assess cardiac structure and function. Repeat PT/INR in the morning. Further recommendations to follow based upon clinical course. Thank you kindly for this consultation. Nurse Practitioner note has been reviewed, I agree with a documented findings and plan of care. Patient was seen and examined. Past Medical History Past Medical History: Coronary Artery Disease (CAD), Chest Pain / Angina, Heart Failure, GI Bleed, Hyperlipidemia, Hypertension, Myocardial Infarction ([place]), Pneumonia, Renal Disease, Vascular Disorder Additional Past Medical History / Comment(s): lower GI bleed, anemia, iron deficiency anemia, chronic kidney dx stage IV with dialysis , diverticulosis, colon polyp (removed), PVD , neck fx as a young person with seizures following last one years ago. Last Myocardial Infarction Date:: 2013 History of Any Multi-Drug Resistant Organisms: None Reported Past Surgical History: Heart Catheterization With Stent Additional Past Surgical History / Comment(s): 11/19/14 EGD with bx and Colonoscopy with polypectomy, bilateral cataract removal with lens implants, shunt L arm. Past Anesthesia/Blood Transfusion Reactions: No Reported Reaction Date of Last Stent Placement:: 2007 Smoking Status: Current every day smoker - Past Family History Father Family Medical History: Myocardial Infarction ([place]) Additional Family Medical History / Comment(s): Father at age 59 of a [place] Mother Family Medical History: CVA/TIA Additional Family Medical History / Comment(s): Mother of a brain hemorrage. Medications and Allergies Home Medications Medication Instructions Recorded Confirmed Type Metoprolol Tartrate [Lopressor] 25 mg PO BID 02/27/19 07/02/20 History Awilda-Fred 0.8mg 0.8 mg PO DAILY 02/27/19 07/02/20 History Atorvastatin Calcium [Lipitor] 40 mg PO DAILY 07/02/20 07/02/20 History Calcium Acetate 668mg 1 tab PO TID-W/MEALS 07/02/20 07/02/20 History Allergies Allergy/AdvReac Type Severity Reaction Status Date / Time No Known Allergies Allergy Verified 07/02/20 16:30 Physical Exam Vitals: Vital Signs Temp Pulse Pulse Resp BP BP Pulse Ox 07/03/20 08:00 73 20 143/64 99 07/03/20 03:50 98.1 F 68 18 133/63 95 07/03/20 00:00 97.9 F 68 18 119/59 100 07/02/20 20:00 97.8 F 70 18 97/53 100 07/02/20 17:39 98.1 F 132 H 20 143/70 100 07/02/20 17:02 120 H 16 117/74 97 07/02/20 16:00 123 H 18 112/69 100 07/02/20 15:13 155 H 18 113/78 97 07/02/20 14:57 98.0 F 55 L 20 128/80 97 Intake and Output 07/02/20 07/03/20 07/03/20 22:59 06:59 14:59 Intake Total 54.988 180 Balance 54.988 180 Intake: Intake, IV Titration 54.988 Amount Heparin Sod,Pork in 0.45% 54.988 NaCl 25,000 unit In 0.45 % NaCl 1 250ml.bag @ 12 UNITS/KG/HR 7.893 mls/hr IV .Q24H [facility] Rx#: [id number] Oral 180 Other: Voiding Method Toilet Toilet Urinal # Voids 1 0 # Bowel Movements 0 Weight 65.771 kg 67.8 kg Results 07/02/20 15:29 07/03/20 05:42 Cardiac Enzymes 07/02/20 07/02/20 07/02/20 Range/Units 15:29 15:29 18:21 AST 31 (17-59) U/L Troponin I 0.167 H* 0.449 H* (0.000-0.034) ng/mL 07/02/20 Range/Units 22:11 AST (17-59) U/L Troponin I 1.090 H* (0.000-0.034) ng/mL Coagulation 07/02/20 07/02/20 07/03/20 Range/Units 15:29 22:11 05:42 PT 11.3 (9.0-12.0) sec APTT 24.4 37.1 H 54.9 H (22.0-30.0) sec 07/03/20 Range/Units 05:42 PT 12.3 H (9.0-12.0) sec APTT (22.0-30.0) sec CBC 07/02/20 Range/Units 15:29 WBC 7.7 (3.8-10.6) k/uL RBC 3.68 L (4.30-5.90) m/uL Hgb 11.6 L (13.0-17.5) gm/dL Hct 35.0 L (39.0-53.0) % Plt Count 150 (150-450) k/uL Comprehensive Metabolic Panel 07/02/20 07/03/20 Range/Units 15:29 05:42 Sodium 137 136 L (137-145) mmol/L Potassium 4.5 5.0 (3.5-5.1) mmol/L Chloride 95 L 98 (98-107) mmol/L Carbon Dioxide 29 28 (22-30) mmol/L BUN 31 H 50 H (9-20) mg/dL Creatinine 4.76 H 6.18 H (0.66-1.25) mg/dL Glucose 115 H 101 H (74-99) mg/dL Calcium 8.9 8.2 L (8.4-10.2) mg/dL AST 31 (17-59) U/L ALT 21 (4-49) U/L Alkaline Phosphatase 56 (38-126) U/L Total Protein 6.7 (6.3-8.2) g/dL Albumin 4.3 (3.5-5.0) g/dL Current Medications Generic Name Dose Route Start Last Admin Trade Name Freq PRN Reason Stop Dose Admin Atorvastatin Calcium 40 mg 07/03/20 09:00 07/03/20 08:23 Atorvastatin 40 Mg Tab PO 40 mg DAILY [facility] Administration Calcium Acetate 667 mg 07/03/20 07:30 07/03/20 06:36 Calcium Acetate 667 Mg Tab PO 667 mg TID-W/MEALS [facility]RIE Administration Heparin Sodium (Porcine) 0 unit 07/02/20 15:27 07/02/20 22:54 Heparin Sodium,Porcine 5,000 Unit/Ml 1 Ml Vial IV 1,644 unit PER PROTOCOL PRN Administration Low PTT Protocol Heparin Sodium/Sodium Chloride 250 mls @ 7.893 mls/hr 07/02/20 15:30 07/02/20 22:46 25,000 unit/ Sodium Chloride IV 14 units/kg/hr .Q24H [facility] 9.208 mls/hr Titration Protocol 12 UNITS/KG/HR Metoprolol Tartrate 50 mg 07/02/20 21:00 07/03/20 08:23 Metoprolol Tartrate 50 Mg Tab PO 50 mg BID [facility]E Administration Miscellaneous Information 0 each 07/03/20 08:57 Warfarin Per Pharmacy MISCELLANE DIRECTED PRN PHARMACY PROTOCOL Multivit/Ca Carb/B Cmplx/FA/Prenat 1 each 07/03/20 09:00 07/03/20 08:24 Folic Acid-Vit B Complex-Vit C 1 Cap PO 1 each DAILY [facility] Administration Naloxone HCl 0.2 mg 07/02/20 16:08 Naloxone 0.4 Mg/Ml 1 Ml Vial IV Q2M PRN Opioid Reversal Nicotine 1 patch 07/02/20 18:00 07/03/20 08:23 Nicotine 14mg/24hr Patch TRANSDERM 1 patch DAILY [facility] Administration Ondansetron HCl 4 mg 07/02/20 21:56 Ondansetron 4 Mg/2 Ml Vial IVP Q6HR PRN Nausea And Vomiting Warfarin Sodium 7.5 mg 07/03/20 18:00 Warfarin 7.5 Mg Tab PO 07/03/20 18:01 ONCE ONE Protocol Intake and Output 07/02/20 07/03/20 07/03/20 22:59 06:59 14:59 Intake Total 54.988 180 Balance 54.988 180 Intake: Intake, IV Titration 54.988 Amount Heparin Sod,Pork in 0.45% 54.988 NaCl 25,000 unit In 0.45 % NaCl 1 250ml.bag @ 12 UNITS/KG/HR 7.893 mls/hr IV .Q24H [facility] Rx#: [id number] Oral 180 Other: Voiding Method Toilet Toilet Urinal # Voids 1 0 # Bowel Movements 0 Weight 65.771 kg 67.8 kg 07/02/20 15:29 07/03/20 05:42
--- NOTE | 2020-07-03 13:32 | ECHOF ---
Referral Reason:new onset afib, sr now MEASUREMENTS -------- HEIGHT: 172.7 cm WEIGHT: 67.6 kg BP: 133/63 RVIDd: 3.7 cm (< 3.3) IVSd: 1.3 cm (0.6 - 1.1) LVIDd: 4.6 cm (3.9 - 5.3) LVPWd: 1.3 cm (0.6 - 1.1) IVSs: 1.6 cm LVIDs: 3.5 cm LVPWs: 1.9 cm LA Diam: 4.2 cm (2.7 - 3.8) LAESV Index (A-L): 43.35 ml/m Ao Diam: 3.1 cm (2.0 - 3.7) AV Cusp: 2.0 cm (1.5 - 2.6) MV E Bhaskar: 0.69 m/s MV DecT: 215 ms MV A Bhaskar: 0.55 m/s MV E/A Ratio: 1.24 RAP: 15.00 mmHg RVSP: 63.92 mmHg FINDINGS -------- Sinus rhythm. This was a technically good study. The left ventricular size is normal. There is mild concentric left ventricular hypertrophy. Overa ll left ventricular systolic function is moderate-severely impaired with, an EF between 30 - 35 %. The right ventricle is mildly enlarged. LA is severely dilated >40 ml/m2 The right atrium is normal in size. Aneurysmal Interatrial septum. Aortic valve is trileaflet and is mildly thickened. The mitral valve leaflets are mildly thickened. Mild mitral annular calcification present. Mild m itral regurgitation is present. Mild tricuspid regurgitation present. There is severe pulmonary hypertension. The right ventricul ar systolic pressure, as measured by Doppler, is 63.92mmHg. Trace/mild (physiologic) pulmonic regurgitation. The aortic root size is normal. The inferior vena cava is dilated with poor inspiratory collapse which is consistent with estimated r ight atrial pressure of 15 mmHg. There is no pericardial effusion. CONCLUSIONS -------- 1. The left ventricular size is normal. 2. There is mild concentric left ventricular hypertrophy. 3. Overall left ventricular systolic function is moderate-severely impaired with, an EF between 30 - 35 %. 4. The right ventricle is mildly enlarged. 5. LA is severely dilated >40 ml/m2 6. Aneurysmal Interatrial septum. 7. Aortic valve is trileaflet and is mildly thickened. 8. The mitral valve leaflets are mildly thickened. 9. Mild mitral annular calcification present. 10. Mild mitral regurgitation is present. 11. Mild tricuspid regurgitation present. 12. There is severe pulmonary hypertension. 13. The right ventricular systolic pressure, as measured by Doppler, is 63.92mmHg. 14. Trace/mild (physiologic) pulmonic regurgitation. 15. The inferior vena cava is dilated with poor inspiratory collapse which is consistent with estimat ed right atrial pressure of 15 mmHg. 16. There is no pericardial effusion. TRANSPORTATION JOB TITLES: Patricia Penny RDCS
[2020-07-03] MEDS: HEPARIN SOD,PORK IN 0.45% NACL 25,000 UNIT in 0.45% NACL 1 250ML.BAG IV SCH (14:10)
[2020-07-03] MEDS ORDERED: WARFARIN 7.5 MG TAB PO ONE (18:00)
[2020-07-04] MEDS: CALCIUM ACETATE 667 MG TAB PO SCH ×3 (06:37→17:18)
[2020-07-04] MEDS: FOLIC ACID-VIT B COMPLEX-VIT C 1 CAP PO SCH (08:32)
[2020-07-04] MEDS: ATORVASTATIN 40 MG TAB PO SCH (08:32)
[2020-07-04] MEDS: METOPROLOL TARTRATE 50 MG TAB PO SCH ×2 (08:32→19:30)
[2020-07-04] MEDS: NICOTINE 14MG/24HR PATCH TRANSDERM SCH (08:32)
--- NOTE | 2020-07-04 09:30 | P.PN ---
Subjective Patient is seen in follow-up for end-stage renal disease. He is maintained on hemodialysis on Wednesday schedule. Denies chest pain or shortness of breath. Blood pressure stable. No active complaints. No edema. Vital signs are stable. General: The patient appeared well nourished and normally developed. HEENT: Head exam is unremarkable. Neck is without jugular venous distension. LUNGS: Lungs are clear to auscultation and percussion. Breath sounds decreased. HEART: Rate and Rhythm are regular. ABDOMEN: Soft, nontender. EXTREMITITES: No clubbing, cyanosis, or edema. Objective - Vital Signs Vital signs: Vital Signs Temp 97.7 F 07/04/20 08:35 Pulse 67 07/04/20 08:35 Resp 18 07/04/20 08:35 BP 144/64 07/04/20 08:35 Pulse Ox 97 07/04/20 08:35 Intake & Output 07/03/20 07/04/20 07/04/20 18:59 06:59 18:59 Intake Total 1259.403 240 Output Total 0 Balance 1259.403 240 Weight 67.3 kg Intake: IV 217.6 Heparin Sod,Pork in 0.45% 57.6 NaCl 25,000 unit In 0.45 % NaCl 1 250ml.bag @ 12 UNITS/KG/HR 7.893 mls/hr IV .Q24H [facility] Rx#: [id number] SALINE kvo 160 Intake, IV Titration 141.803 Amount Heparin Sod,Pork in 0.45% 141.803 NaCl 25,000 unit In 0.45 % NaCl 1 250ml.bag @ 12 UNITS/KG/HR 7.893 mls/hr IV .Q24H [facility] Rx#: [id number] Oral 900 240 Output: Urine 0 Other: Voiding Method Toilet Toilet Urinal Urinal # Voids 1 0 # Bowel Movements 0 - Labs CBC & Chem 7: 07/02/20 15:29 07/03/20 05:42 Assessment and Plan Plan: Assessment: 1. End-stage renal disease maintained on hemodialysis on Wednesday schedule via left upper extremity AV fistula. 2. Chronic kidney disease mineral bone disease maintained on PhosLo. 3. A. fib with RVR maintained on heparin drip and metoprolol. Heart rate controlled. 4. Chronic systolic CHF with ejection fraction of 30-35% with severe pulmonary hypertension. Plan: Hemodialysis today.
[2020-07-04 09:38] LABS: Calcium 7.6 mg/dL (8.4-10.2); Potassium 4.4 mmol/L (3.5-5.1)
[2020-07-04 09:51] LABS: INR 1.1 (<1.2); Prothrombin Time 11.5 sec (9.0-12.0)
[2020-07-04] MEDS ORDERED: lisinopriL 5 MG TAB PO SCH (10:15)
[2020-07-04] MEDS ORDERED: WARFARIN 5 MG TAB PO ONE ×2 (10:17→18:00)
--- NOTE | 2020-07-04 10:20 | P.PN ---
Subjective Progress Note Date: 07/04/20 Principal diagnosis: 80-year-old male resting comfortably in bed. Resolved atrial fibrillation with Cardizem drip, converted to normal sinus, maintained on heparin drip and Lopressor for rate control. Patient awaiting dialysis. Objective - Vital Signs Vital signs: Vital Signs Temp 97.7 F 07/04/20 08:35 Pulse 67 07/04/20 08:35 Resp 18 07/04/20 08:35 BP 144/64 07/04/20 08:35 Pulse Ox 97 07/04/20 08:35 Intake & Output 07/03/20 07/04/20 07/04/20 18:59 06:59 18:59 Intake Total 1259.403 240 Output Total 0 Balance 1259.403 240 Weight 67.3 kg Intake: IV 217.6 Heparin Sod,Pork in 0.45% 57.6 NaCl 25,000 unit In 0.45 % NaCl 1 250ml.bag @ 12 UNITS/KG/HR 7.893 mls/hr IV .Q24H [facility] Rx#: [id number] SALINE kvo 160 Intake, IV Titration 141.803 Amount Heparin Sod,Pork in 0.45% 141.803 NaCl 25,000 unit In 0.45 % NaCl 1 250ml.bag @ 12 UNITS/KG/HR 7.893 mls/hr IV .Q24H [facility] Rx#: [id number] Oral 900 240 Output: Urine 0 Other: Voiding Method Toilet Toilet Toilet Urinal Urinal Urinal # Voids 1 0 # Bowel Movements 0 - Constitutional General appearance: Present: mild distress - EENT Eyes: Present: EOMI, PERRLA ENT: Present: normal oropharynx Ears: bilateral: normal - Neck Neck: Present: normal ROM - Respiratory Respiratory: bilateral: rales (Bilateral posterior bases) - Cardiovascular Rhythm: regular Abnormal Heart Sounds: Present: systolic murmur, other - Gastrointestinal General gastrointestinal: Present: normal bowel sounds - Integumentary Integumentary: Present: decreased turgor - Neurologic Neurologic: Present: CNII-XII intact - Musculoskeletal Musculoskeletal: Present: generalized weakness - Psychiatric Psychiatric: Present: A&O x's 3, appropriate affect, intact judgment & insight - Labs CBC & Chem 7: 07/02/20 15:29 07/04/20 09:00 Labs: Abnormal Lab Results - Last 24 Hours (Table) 07/04/20 07/04/20 Range/Units 09:00 09:00 APTT 45.0 H (22.0-30.0) sec Sodium 132 L (137-145) mmol/L Chloride 95 L (98-107) mmol/L BUN 62 H (9-20) mg/dL Creatinine 7.30 H* (0.66-1.25) mg/dL Glucose 188 H (74-99) mg/dL Calcium 7.6 L (8.4-10.2) mg/dL - Imaging and Cardiology Chest x-ray: report reviewed Echocardiogram reviewed Assessment and Plan Assessment: Paroxysmal atrial fibrillation Elevated troponins, possibly secondary to atrial fibrillation with RVR. End-stage renal disease hemodialysis dependenthemodialysis Wednesday, , and Wednesday Hypertension Anemia over chronic kidney disease Hyperlipidemia Peripheral vascular disease Metabolic bone disease secondary to end-stage renal disease Nicotine dependence (1) Atrial fibrillation with rapid ventricular response Current Visit: Yes Status: Acute Code(s): I48.91 - UNSPECIFIED ATRIAL FIBRILLATION SNOMED Code(s): 181754438948957 (2) Acute renal failure Current Visit: No Status: Acute Code(s): N17.9 - ACUTE KIDNEY FAILURE, UNSPECIFIED SNOMED Code(s): 89833064 Plan: Continue heparin drip and Lopressor for proximal atrial fibrillation Continue Coumadin therapy Continue consultation with cardiology T consultation with nephrology Hemodialysis today Hopeful discharge Time with Patient: Greater than 30
--- NOTE | 2020-07-04 11:23 | P.PN ---
Subjective HISTORY OF PRESENTING ILLNESS This is a pleasant 80-year-old male past medical history significant for coronary artery disease status post PCI to the mid RCA in 2007, ischemic cardiomyopathy, valvular heart disease, chronic kidney disease on hemodialysis, hypertension, dyslipidemia and chronic nicotine dependence. 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 He is seen and examined sitting up in bed in no acute distress. He denies chest pain, shortness of breath, dizziness or palpitations. He is currently maintaining sinus mechanism. Blood pressure 144/64 heart rate 67 afebrile maintaining oxygen saturation on nasal cannula. Laboratory data reviewed, INR 1.1, sodium 132, potassium 4.4, creatinine 7.3. Currently maintained on heparin infusion, lopressor 50 mg twice a day and atorvastatin 80 mg daily. Telemetry tracings reviewed, he is maintaining sinus mechanism currently. Repeat echocardiogram obtained revealed impaired LV systolic function with EF 30-35%. PHYSICAL EXAMINATION CONSTITUTIONAL: No apparent distress. HEENT: Head is normocephalic. Pupils are equal, round. Sclerae anicteric. Mucous membranes of the mouth are moist. No JVD. No carotid bruit. CHEST EXAMINATION: Lungs are clear to auscultation. No chest wall tenderness is noted on palpation or with deep breathing. Diminished bilaterally. HEART EXAMINATION: Regular rate and rhythm. S1, S2 heard. Systolic ejection murmur at the left sternal border, no gallops or rub. EXTREMITIES: 2+ peripheral pulses, no lower extremity edema and no calf tenderness. ASSESSMENT Paroxysmal atrial fibrillation, new onset. Converted to sinus mechanism. End-stage renal disease on hemodialysis History of coronary artery disease status post PCI to the RCA 2007 Ischemic cardiomyopathy Hypertension Dyslipidemia Chronic nicotine dependence PLAN Initiate lisinopril 5 mg daily. Continue Coumadin 5 mg daily and follow-up PT/INR in 3 days. Stable for discharge from a cardiac perspective. Nurse Practitioner note has been reviewed, I agree with a documented findings and plan of care. Patient was seen and examined. Objective - Vital Signs Vital signs: Vital Signs Temp 97.7 F 07/04/20 08:35 Pulse 67 07/04/20 08:35 Resp 18 07/04/20 08:35 BP 144/64 07/04/20 08:35 Pulse Ox 97 07/04/20 08:35 Intake & Output 07/03/20 07/04/20 07/04/20 18:59 06:59 18:59 Intake Total 1259.403 240 Output Total 0 Balance 1259.403 240 Weight 67.3 kg Intake: IV 217.6 Heparin Sod,Pork in 0.45% 57.6 NaCl 25,000 unit In 0.45 % NaCl 1 250ml.bag @ 12 UNITS/KG/HR 7.893 mls/hr IV .Q24H [facility] Rx#: [id number] SALINE kvo 160 Intake, IV Titration 141.803 Amount Heparin Sod,Pork in 0.45% 141.803 NaCl 25,000 unit In 0.45 % NaCl 1 250ml.bag @ 12 UNITS/KG/HR 7.893 mls/hr IV .Q24H [facility] Rx#: [id number] Oral 900 240 Output: Urine 0 Other: Voiding Method Toilet Toilet Urinal Urinal # Voids 1 0 # Bowel Movements 0 - Labs CBC & Chem 7: 07/02/20 15:29 07/04/20 09:00 Labs: Abnormal Lab Results - Last 24 Hours (Table) 07/03/20 Range/Units 05:42 PT 12.3 H (9.0-12.0) sec INR 1.2 H (<1.2)
[2020-07-04 12:43] VITALS: RESP 18
[2020-07-04 16:08] VITALS: BP 160/70; PULSE 71; TEMP 98.6
--- NOTE | 2020-07-04 19:51 | P.DS ---
Providers Date of admission: 07/02/20 16:09 80-year-old male presented to the emergency room with elevated heart rate noted during dialysis. Patient denied any complaints during emergency room stay. Patient found to be in atrial fibrillation with rapid ventricular response. Patient was placed on a Cardizem drip and heparin drip. Expected date of discharge: 07/04/20 Attending physician: Edward Bowen Patient was admitted to hospitalist services on July 022019. Dr. Edward Bowen services resumed care on 07/04/2020. Consults: 07/02/20 17:59 Consult Physician Routine Consulting Provider: Tasneem Lemus Consult Reason/Comments: Atrial fibrillation Do you want consulting provider notified?: Yes 07/02/20 18:00 Consult Physician Routine Consulting Provider: Sanhtosh Hilton Consult Reason/Comments: End-stage renal disease Do you want consulting provider notified?: Yes Primary care physician: Edward Bowen - Discharge Diagnosis(es) (1) Atrial fibrillation with rapid ventricular response Current Visit: Yes Status: Acute (2) Acute renal failure Current Visit: No Status: Acute Hospital Course: Patient was admitted through emergency department for atrial fibrillation with rapid ventricular rate. Patient was placed on a Cardizem drip for rate control, converted to normal sinus rhythm. Heparin drip was initiated and maintained throughout hospital stay for anticoagulation therapy, Coumadin therapy was started and initiated. During hospital stay patient had elevated troponins, related to atrial fibrillation, and end-stage renal failure. Assessment: Paroxysmal atrial fibrillation End-stage renal failure on hemodialysisWednesday//Wednesday Chronic kidney disease mineral bone disease Chronic systolic congestive heart failure with ejection fraction of 30-35% with severe pulmonary hypertension Hypertension Hyperlipidemia Health Concerns: Health concerns of end-stage renal failure with ejection fraction of 30-35% The ability to maintain anticoagulation therapy for paroxysmal atrial fibrillation Pertinent Studies: Echocardiogramchronic congestive heart failure systolic with ejection fraction of 30-35% with severe pulmonary hypertension Chest x-raymild cardiomegaly. With vascular prominence Procedures: Procedures performed during inpatient stay Patient Condition at Discharge: Fair Plan - Discharge Summary Discharge Rx Participant: Yes New Discharge Prescriptions: New Warfarin [Coumadin] 5 mg PO DAILY 30 Days #30 tab Nicotine 14Mg/24Hr Patch [Habitrol] 1 patch TRANSDERM DAILY #0 patch Metoprolol Tartrate [Lopressor] 50 mg PO BID 30 Days #60 tab Folic Acid-Vit B Complex-Vit C [Nephrocaps] 1 each PO DAILY cap Calcium Acetate [PhosLo] 667 mg PO TID-W/MEALS tab lisinopriL [Zestril] 5 mg PO DAILY 30 Days #30 tab Continue Atorvastatin Calcium [Lipitor] 40 mg PO DAILY Awilda-Fred 0.8mg 0.8 mg PO DAILY #0 Discontinued Metoprolol Tartrate [Lopressor] 25 mg PO BID Calcium Acetate 668mg 1 tab PO TID-W/MEALS Discharge Medication List Atorvastatin Calcium [Lipitor] 40 mg PO DAILY 07/02/20 [History] Calcium Acetate [PhosLo] 667 mg PO TID-W/MEALS tab 07/04/20 [Rx] Folic Acid-Vit B Complex-Vit C [Nephrocaps] 1 each PO DAILY cap 07/04/20 [Rx] Metoprolol Tartrate [Lopressor] 50 mg PO BID 30 Days #60 tab 07/04/20 [Rx] Nicotine 14Mg/24Hr Patch [Habitrol] 1 patch TRANSDERM DAILY #0 patch 07/04/20 [Rx] Awilda-Fred 0.8mg 0.8 mg PO DAILY #0 07/04/20 [Rx] Warfarin [Coumadin] 5 mg PO DAILY 30 Days #30 tab 07/04/20 [Rx] lisinopriL [Zestril] 5 mg PO DAILY 30 Days #30 tab 07/04/20 [Rx] Follow up Appointment(s)/Referral(s): Edward Bowen MD [Primary Care Provider] - 1-2 days (Office is closed. Follow up on Wednesday. Please call to schedule appointment) Tony Paniagua MD [STAFF PHYSICIAN] - 07/12/20 10:45 am (Wednesday) Patient Instructions/Handouts: A-fib (Atrial Fibrillation) (DC), Vitamin K in Foods (DC), Safe Use of Anticoagulants (DC) Discharge Disposition: HOME SELF-CARE
== END 2020-07-04 19:49 | disposition home or self-care (01) | DRG 308 ==
LOC: EC 14:54 → 3SCARD 16:09
PROVIDERS: ADMIT Internal Medicine; ATTEND Family Medicine
PROC: 5A1D70Z Performance of Urinary Filtration, Intermittent, Less than 6 Hours Per Day (ICD-10-PCS; principal; 2020-07-04)
DX: I48.0 Paroxysmal atrial fibrillation (principal); N18.6 End stage renal disease; I13.2 Hypertensive heart and chronic kidney disease with heart failure and with stage 5 chronic kidney disease, or end stage renal disease; I50.22 Chronic systolic (congestive) heart failure; N17.9 Acute kidney failure, unspecified; I27.20 Pulmonary hypertension, unspecified; D63.1 Anemia in chronic kidney disease; I73.9 Peripheral vascular disease, unspecified; Z99.2 Dependence on renal dialysis; E78.5 Hyperlipidemia, unspecified; E83.89 Other disorders of mineral metabolism; F17.200 Nicotine dependence, unspecified, uncomplicated; I25.10 Atherosclerotic heart disease of native coronary artery without angina pectoris; I25.2 Old myocardial infarction; I25.5 Ischemic cardiomyopathy; K57.90 Diverticulosis of intestine, part unspecified, without perforation or abscess without bleeding; R79.89 Other specified abnormal findings of blood chemistry; I08.1 Rheumatic disorders of both mitral and tricuspid valves; Z79.01 Long term (current) use of anticoagulants; Z79.899 Other long term (current) drug therapy; Z98.42 Cataract extraction status, left eye; Z98.41 Cataract extraction status, right eye; Z96.1 Presence of intraocular lens; Z95.5 Presence of coronary angioplasty implant and graft; Z89.511 Acquired absence of right leg below knee; Z86.010 Personal history of colon polyps; Z87.01 Personal history of pneumonia (recurrent); Z98.890 Other specified postprocedural states; Z82.49 Family history of ischemic heart disease and other diseases of the circulatory system; Z82.3 Family history of stroke
CPT/HCPCS: 36415; 71045; 80048; 80053; 83735; 84100; 84443; 84484; 85025; 85610; 85730; 90935; 93005; 93306; 96365; 96376; 99285

== ENCOUNTER 2020-07-20 18:18 | Emergency (ER) | payer MEDICARE ==
--- NOTE | 2020-07-20 18:33 | ED ---
Chest Pain HPI - General Chief Complaint: Chest Pain Stated Complaint: chest pain Time Seen by Provider: 07/20/20 18:30 Source: patient, RN notes reviewed, old records reviewed Mode of arrival: wheelchair Limitations: no limitations - History of Present Illness Initial Comments: This is an 80-year-old male presenting today. She presents today for chest pain. Patient had chest pain since about lunch which she was thinking maybe indigestion but it is never went away. Also went on his left arm which made the daughter concerned was also with him today. Patient had dialysis this morning. Dialysis just didn't himself felt sick, but no episodes of pain no syncope near syncope or diaphoresis. Patient denies any recent fevers but has been a little bit of fatigue over the last 2 days. MD Complaint: chest pain -: hour(s) Onset: during rest Pain Location: left chest Pain Radiation: LUE Severity: mild Severity scale (1-10): 2 Quality: tightness Consistency: constant Improves With: nothing Worsens With: nothing Context: recent illness Anginal Symptoms: nausea Other Symptoms: palpitations Treatments Prior to Arrival: none - Related Data Home Medications Medication Instructions Recorded Confirmed Atorvastatin Calcium [Lipitor] 40 mg PO DAILY 07/02/20 07/02/20 Previous Rx's Medication Instructions Recorded Calcium Acetate [PhosLo] 667 mg PO TID-W/MEALS tab 07/04/20 Folic Acid-Vit B Complex-Vit C 1 each PO DAILY cap 07/04/20 [Nephrocaps] Metoprolol Tartrate [Lopressor] 50 mg PO BID 30 Days #60 tab 07/04/20 Nicotine 14Mg/24Hr Patch [Habitrol] 1 patch TRANSDERM DAILY #0 patch 07/04/20 Awilda-Fred 0.8mg 0.8 mg PO DAILY #0 07/04/20 Warfarin [Coumadin] 5 mg PO DAILY 30 Days #30 tab 07/04/20 lisinopriL [Zestril] 5 mg PO DAILY 30 Days #30 tab 07/04/20 Allergies Allergy/AdvReac Type Severity Reaction Status Date / Time No Known Allergies Allergy Verified 07/20/20 18:24 Review of Systems ROS Statement: Those systems with pertinent positive or pertinent negative responses have been documented in the HPI. ROS Other: All systems not noted in ROS Statement are negative. 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 Last Myocardial Infarction Date:: 2013 History of Any Multi-Drug Resistant Organisms: None Reported Past Surgical History: Heart Catheterization With Stent Additional Past Surgical History / Comment(s): 11/19/14 EGD with bx and Colonoscopy with polypectomy, bilateral cataract removal with lens implants, shira nt L arm. Past Anesthesia/Blood Transfusion Reactions: No Reported Reaction Date of Last Stent Placement:: 2007 Past Psychological History: No Psychological Hx Reported Smoking Status: Current every day smoker Past Alcohol Use History: None Reported Past Drug Use History: None Reported - Past Family History Father Family Medical History: Myocardial Infarction ([place]) Additional Family Medical History / Comment(s): Father at age 59 of a [place] Mother Family Medical History: CVA/TIA Additional Family Medical History / Comment(s): Mother of a brain hemorrage. General Exam Limitations: no limitations General appearance: alert, in no apparent distress Head exam: Present: atraumatic, normocephalic, normal inspection Eye exam: Present: normal appearance, PERRL, EOMI. Absent: scleral icterus, conjunctival injection, periorbital swelling ENT exam: Present: normal exam, mucous membranes moist Neck exam: Present: normal inspection. Absent: tenderness, meningismus, lymphadenopathy Respiratory exam: Present: normal lung sounds bilaterally. Absent: respiratory distress, wheezes, rales, rhonchi, stridor Cardiovascular Exam: Present: regular rate, normal rhythm, normal heart sounds. Absent: systolic murmur, diastolic murmur, rubs, gallop, clicks GI/Abdominal exam: Present: soft, normal bowel sounds. Absent: distended, tenderness, guarding, rebound, rigid Extremities exam: Present: normal inspection, full ROM, normal capillary refill. Absent: tenderness, pedal edema, joint swelling, calf tenderness Back exam: Present: normal inspection Neurological exam: Present: alert, oriented X3, CN II-XII intact Psychiatric exam: Present: normal affect, normal mood Skin exam: Present: warm, dry, intact, normal color. Absent: rash Course Vital Signs 07/20/20 07/20/20 18:21 19:39 Temperature 98.7 F Pulse Rate 85 71 Respiratory 18 18 Rate Blood Pressure 151/55 152/47 O2 Sat by Pulse 98 100 Oximetry - Reevaluation(s) Reevaluation #1: 07/20/20 21:12 Records reviewed Reevaluation #2: 07/20/20 21:12 Patient has no recurrent chest pain here in the ER feels well Reevaluation #3: 07/20/20 21:12 Patient family informed of results, questions answered Reevaluation #4: 07/20/20 21:12 Patient does have elevated troponin but again is without chest pain EKG is unchanged Chest Pain MDM - MDM 80 male DF for evaluation of chest pain. Just resolved here in the ER will return of chest pain returns. Patient would like to be discharged home Disposition Clinical Impression: Chest pain Disposition: HOME SELF-CARE Condition: Fair Instructions (If sedation given, give patient instructions): Chest Pain (ED) Is patient prescribed a controlled substance at d/c from ED?: No Referrals: Edward Bowen MD [Primary Care Provider] - 1-2 days
[2020-07-20 19:19] LABS: Basophils # (A) 0.1 k/uL (0-0.2); Basophils % (A) 1 %; Eosinophils # (A) 0.2 k/uL (0-0.7); Eosinophils % (A) 2 %; HCT 25.8 % (39.0-53.0); Lymphocytes # (A) 1.1 k/uL (1.0-4.8); Lymphocytes % (A) 14 %; MCH 31.5 pg (25.0-35.0); MCHC 33.3 g/dL (31.0-37.0); MCV 94.7 fL (80.0-100.0); Mean Platelet Volume 8.2; Monocytes # (A) 0.5 k/uL (0-1.0); Monocytes % (A) 6 %; Neutrophils # (A) 6.4 k/uL (1.3-7.7); Neutrophils % (A) 76 %; Platelet Count 180 k/uL (150-450); RBC 2.72 m/uL (4.30-5.90); RDW 13.8 % (11.5-15.5); WBC 8.3 k/uL (3.8-10.6)
--- NOTE | 2020-07-20 19:19 | XR ---
EXAMINATION TYPE: XR chest 2V DATE OF EXAM: 07/20/2020 COMPARISON: 07/02/2020 HISTORY: Chest pain TECHNIQUE: 2 views FINDINGS: Heart is enlarged. There is no heart failure. There is some coarsening of interstitial will ings. There is no pulmonary consolidation. There is mild subsegmental atelectasis at the lung bases. There are no hilar masses. IMPRESSION: Cardiomegaly. Mild pulmonary fibrosis. No heart failure. No change.
[2020-07-20 19:22] LABS: HGB 8.6 gm/dL (13.0-17.5)
[2020-07-20 19:31] LABS: Albumin 3.7 g/dL (3.5-5.0); Magnesium 1.8 mg/dL (1.6-2.3); Potassium 3.8 mmol/L (3.5-5.1); Total Bilirubin 0.5 mg/dL (0.2-1.3)
[2020-07-20 19:38] LABS: INR 3.1 (<1.2); Partial Thromboplastin Time 35.9 sec (22.0-30.0); Prothrombin Time 30.5 sec (9.0-12.0)
[2020-07-20 21:31] VITALS: BP 153/59; PULSE 73; RESP 16; TEMP 98.3
== END 2020-07-20 21:31 | disposition home or self-care (01) ==
LOC: EC 18:18
DX: R07.9 Chest pain, unspecified (principal); R11.0 Nausea; R00.2 Palpitations; I25.119 Atherosclerotic heart disease of native coronary artery with unspecified angina pectoris; I13.0 Hypertensive heart and chronic kidney disease with heart failure and stage 1 through stage 4 chronic kidney disease, or unspecified chronic kidney disease; N18.4 Chronic kidney disease, stage 4 (severe); I50.9 Heart failure, unspecified; E78.5 Hyperlipidemia, unspecified; I25.2 Old myocardial infarction; F17.200 Nicotine dependence, unspecified, uncomplicated; Z79.899 Other long term (current) drug therapy; Z99.2 Dependence on renal dialysis
CPT/HCPCS: 36415; 71046; 80053; 83690; 83735; 83880; 84484; 85025; 85610; 85730; 93005; 99285

== ENCOUNTER 2020-07-21 19:11 | Inpatient (IN) | payer MEDICARE ==
[2020-07-21 19:43] LABS: ABG HCO3 23 mmol/L (21-25); ABG Oxygen Saturation 99.7 % (94-97); ABG PO2 132 mmHg (83-108); ABG TCO2 23 mmol/L (19-24); Allen Test Performed? Yes
[2020-07-21 19:50] LABS: ABG PH >7.70 (7.35-7.45)
[2020-07-21 20:02] LABS: Basophils # (A) 0.1 k/uL (0-0.2); Basophils % (A) 1 %; Eosinophils # (A) 0.3 k/uL (0-0.7); Eosinophils % (A) 2 %; Lymphocytes # (A) 2.5 k/uL (1.0-4.8); Lymphocytes % (A) 20 %; MCH 30.8 pg (25.0-35.0); MCHC 33.3 g/dL (31.0-37.0); MCV 92.6 fL (80.0-100.0); Mean Platelet Volume 8.5; Monocytes # (A) 0.7 k/uL (0-1.0); Monocytes % (A) 5 %; Neutrophils % (A) 70 %; Platelet Count 242 k/uL (150-450); RBC 1.42 m/uL (4.30-5.90); RDW 14.3 % (11.5-15.5); WBC 12.8 k/uL (3.8-10.6)
[2020-07-21 20:13] LABS: Prothrombin Time 29.4 sec (9.0-12.0)
[2020-07-21 20:16] LABS: HCT 13.1 % (39.0-53.0); HGB 4.4 gm/dL (13.0-17.5)
--- NOTE | 2020-07-21 20:17 | XR ---
EXAMINATION TYPE: XR chest 1V DATE OF EXAM: 07/21/2020 COMPARISON: Yesterday HISTORY: Chest pain. Short of breath. TECHNIQUE: FINDINGS: Heart appears enlarged. There are chest leads. There is left axillary surgical clips. There is coarsening of the interstitial pulmonary markings. I see no definite pleural effusion. IMPRESSION: Coarse lung markings. This probably relates to pulmonary fibrosis. I do not see obvious h eart failure. Lung markings increased slightly compared to yesterday.
--- NOTE | 2020-07-21 20:20 | ED ---
SOB HPI - General Chief Complaint: Shortness of Breath Stated Complaint: recheck - DEYANIRA Time Seen by Provider: 07/21/20 19:19 Source: patient, EMS Mode of arrival: EMS - History of Present Illness Initial Comments: this is an 80-year-old malewith a history of H of fibrillation, end-stage renal disease, CHF who presents emergency department fordifficulty with breathing and lethargy. The patient states he's had difficulty with breathing over the last couple of days. He states that today he became more lethargic and fatigued. Family calledas they were concerned they might be having a stroke. EMS got there noted that his oxygen was low when he looked like he was in respiratory distress. They placed him on BiPAP and noted that his blood pressure was also elevated so given 3 nitroglycerin tabs. By the time the patient arrived to the emergency department he felt much improved. The patient denies any chest pain. Does admit to some shortness of breath. No fevers or chills. No cough. No nausea, vomiting, or diarrhea. No abdominal pain. He denies any swelling in h is lower extremities. He states he's been compliant with his dialysis and went yesterday. He denies any other acute complaints. - Related Data Home Medications Medication Instructions Recorded Confirmed Atorvastatin Calcium [Lipitor] 40 mg PO DAILY 07/02/20 07/21/20 Aspirin EC [Ecotrin Low Dose] 81 mg PO DAILY 07/20/20 07/21/20 Folic Acid-Vit B Complex-Vit C 1 tab PO DAILY 07/20/20 07/21/20 [Nephrocaps] Lidocaine-Prilocaine Cream [Emla 1 applic TOPICAL DAILY PRN 07/20/20 07/21/20 Cream 2.5%/2.5%] Pantoprazole [Protonix] 40 mg PO DAILY 07/20/20 07/21/20 Previous Rx's Medication Instructions Recorded Calcium Acetate [PhosLo] 667 mg PO TID-W/MEALS tab 07/04/20 Metoprolol Tartrate [Lopressor] 50 mg PO BID 30 Days #60 tab 07/04/20 Nicotine 14Mg/24Hr Patch [Habitrol] 1 patch TRANSDERM DAILY #0 patch 07/04/20 Awilda-Fred 0.8mg 0.8 mg PO DAILY #0 07/04/20 Warfarin [Coumadin] 5 mg PO DAILY 30 Days #30 tab 07/04/20 lisinopriL [Zestril] 5 mg PO DAILY 30 Days #30 tab 07/04/20 Allergies Allergy/AdvReac Type Severity Reaction Status Date / Time No Known Allergies Allergy Verified 07/21/20 21:51 Review of Systems ROS Statement: Those systems with pertinent positive or pertinent negative responses have been documented in the HPI. ROS Other: All systems not noted in ROS Statement are negative. 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 Last Myocardial Infarction Date:: 2013 History of Any Multi-Drug Resistant Organisms: None Reported Past Surgical History: Heart Catheterization With Stent Additional Past Surgical History / Comment(s): 11/19/14 EGD with bx and Colonoscopy with polypectomy, bilateral cataract removal with lens implants, shunt L arm. Past Anesthesia/Blood Transfusion Reactions: No Reported Reaction Date of Last Stent Placement:: 2007 Past Psychological History: No Psychological Hx Reported Smoking Status: Current every day smoker Past Alcohol Use History: None Reported Past Drug Use History: None Reported - Past Family History Father Family Medical History: Myocardial Infarction (AL) Additional Family Medical History / Comment(s): Father at age 59 of a [place] Mother Family Medical History: CVA/TIA Additional Family Medical History / Comment(s): Mother of a brain hemorrage . General Exam - General Exam Comments Initial Comments: Constitutional: [Awake alert] [Appears comfortable] Head: [Normocephalic atraumatic] Eyes: [no conjunctival injection] [No scleral icterus] [EOMI]mild conjunctival pallor Neck: [No JVD] [Supple] Heart: [Regular rate rhythm] [normal S1-S2] [no murmurs] Lungs: [Clear to auscultation bilaterally] [No wheezing] [No rales], tachypneic and decreased breath sounds on the left Abdomen: [Soft] [nondistended] [nontender] Extremities: [Non edematous] [DP pulses intact] [Radial pulses intact] Neuro: [A&Ox3] [No focal neurologic deficits] Psych: [Appropriate mood and affect] Course Vital Signs 07/21/20 07/21/20 07/21/20 19:16 20:20 21:11 Temperature 97.8 F Pulse Rate 81 81 Respiratory 30 H 20 22 Rate Blood Pressure 126/57 84/64 117/64 O2 Sat by Pulse 100 97 97 Oximetry 07/21/20 07/21/20 07/21/20 21:22 21:33 21:41 Temperature 97.8 F 97.8 F 97.4 F L Pulse Rate 88 86 81 Respiratory 20 20 20 Rate Blood Pressure 117/64 117/46 135/53 O2 Sat by Pulse 97 100 Oximetry 07/21/20 07/21/20 21:43 22:13 Temperature 97.5 F L 97.2 F L Pulse Rate 81 87 Respiratory 20 20 Rate Blood Pressure 121/53 134/60 O2 Sat by Pulse 100 97 Oximetry - Reevaluation(s) Reevaluation #1: 07/21/20 20:20 EKGinterpreted at 1928 shows normal sinus rhythm with rate of 88. There are no abnormal ST 7 changes or T-wave inversions. QTC is 559. The patient does have a right bundle-branch block. No ectopy. Reevaluation #2: 07/21/20 21:07ent into the room to reevaluate the patient and he was appearing more lethargic. Blood pressure was 80s over 50s. The patient was not tachycardic however. Decision made at that time to undergo massive transfusion protocol. INR is elevated at 3 so the patient will be given K Centura. Fecal occult blood was positive. Protonix will be given. I had a discussion with the patient and he stated that he is a DO NOT RESUSCITATE in the event of cardiac arrest. Medical Decision Making - Medical Decision Making this is an 8-year-old male who presents emergency department for worsening dyspnea and lethargy over the last few days. Patient originally arrived on BiPAP however after getting an ABG and it was determined that the patient was having a restaurant alkalosis. He was taken off of BiPAP and seemed to be doing fine. He was hemodynamically stable at that time. The patient was then found to be significantly anemic at 4.4. I did put in for a transfusion of 2 units however while waiting for a type and screen and went to the room and the patient was appearing more lethargic and his blood pressure had dropped to 80/50. I initiated the massive transfusion protocol at that time. The patient will be given 2 units of PRBCs and 2 units FFP. He also be given K Centro to reverse his INR. The patient was found to be fecal occult blood positive. The patient will be admitted to the ICU for close monitoring. I spoke with Dr. Simms and also Dr. Hackett who were updated and agree with plan of care at this time.I did talk to the patient about CODE STATUS again and he is DO NOT RESUSCITATE however is okay with other medical therapies. - Lab Data Result diagrams: 07/21/20 19:58 07/21/20 19:58 Lab Results 07/21/20 07/21/20 07/21/20 Range/Units 19:41 19:58 19:58 WBC 12.8 H (3.8-10.6) k/uL RBC 1.42 L (4.30-5.90) m/uL Hgb 4.4 L* D (13.0-17.5) gm/dL Hct 13.1 L* (39.0-53.0) % MCV 92.6 (80.0-100.0) fL MCH 30.8 (25.0-35.0) pg MCHC 33.3 (31.0-37.0) g/dL RDW 14.3 (11.5-15.5) % Plt Count 242 (150-450) k/uL Neutrophils % 70 % Lymphocytes % 20 % Monocytes % 5 % Eosinophils % 2 % Basophils % 1 % Neutrophils # 9.0 H (1.3-7.7) k/uL Lymphocytes # 2.5 (1.0-4.8) k/uL Monocytes # 0.7 (0-1.0) k/uL Eosinophils # 0.3 (0-0.7) k/uL Basophils # 0.1 (0-0.2) k/uL PT 29.4 H (9.0-12.0) sec INR 3.0 H (<1.2) APTT 34.0 H (22.0-30.0) sec Sample Site rbrach ABG pH >7.70 H* (7.35-7.45) ABG pCO2 18 L* (35-45) mmHg ABG pO2 132 H (83-108) mmHg ABG HCO3 23 (21-25) mmol/L ABG Total CO2 23 (19-24) mmol/L ABG O2 Saturation 99.7 H (94-97) % ABG Base Excess 3.0 mmol/L Andrés Test Yes FiO2 35 % Sodium (137-145) mmol/L Potassium (3.5-5.1) mmol/L Chloride (98-107) mmol/L Carbon Dioxide (22-30) mmol/L Anion Gap mmol/L BUN (9-20) mg/dL Creatinine (0.66-1.25) mg/dL Est GFR (CKD-EPI)AfAm (>60 ml/min/1.73 sqM) Est GFR (CKD-EPI)NonAf (>60 ml/min/1.73 sqM) Glucose (74-99) mg/dL Plasma Lactic Acid Gage (0.7-2.0) mmol/L Calcium (8.4-10.2) mg/dL Magnesium (1.6-2.3) mg/dL Total Bilirubin (0.2-1.3) mg/dL AST (17-59) U/L ALT (4-49) U/L Alkaline Phosphatase (38-126) U/L Troponin I (0.000-0.034) ng/mL Total Protein (6.3-8.2) g/dL Albumin (3.5-5.0) g/dL Stool Occult Blood (Negative) Blood Type Blood Type Recheck Bld Type Recheck Status Antibody Screen Crossmatch Spec Expiration Date 07/21/20 07/21/20 07/21/20 Range/Units 19:58 19:58 21:12 WBC (3.8-10.6) k/uL RBC (4.30-5.90) m/uL Hgb (13.0-17.5) gm/dL Hct (39.0-53.0) % MCV (80.0-100.0) fL MCH (25.0-35.0) pg MCHC (31.0-37.0) g/dL RDW (11.5-15.5) % Plt Count (150-450) k/uL Neutrophils % % Lymphocytes % % Monocytes % % Eosinophils % % Basophils % % Neutrophils # (1.3-7.7) k/uL Lymphocytes # (1.0-4.8) k/uL Monocytes # (0-1.0) k/uL Eosinophils # (0-0.7) k/uL Basophils # (0-0.2) k/uL PT (9.0-12.0) sec INR (<1.2) APTT (22.0-30.0) sec Sample Site ABG pH (7.35-7.45) ABG pCO2 (35-45) mmHg ABG pO2 (83-108) mmHg ABG HCO3 (21-25) mmol/L ABG Total CO2 (19-24) mmol/L ABG O2 Saturation (94-97) % ABG Base Excess mmol/L Andrés Test FiO2 % Sodium 138 (137-145) mmol/L Potassium 4.1 (3.5-5.1) mmol/L Chloride 99 (98-107) mmol/L Carbon Dioxide 25 (22-30) mmol/L Anion Gap 14 mmol/L BUN 79 H (9-20) mg/dL Creatinine 6.53 H (0.66-1.25) mg/dL Est GFR (CKD-EPI)AfAm 8 (>60 ml/min/1.73 sqM) Est GFR (CKD-EPI)NonAf 7 (>60 ml/min/1.73 sqM) Glucose 123 H (74-99) mg/dL Plasma Lactic Acid Gage (0.7-2.0) mmol/L Calcium 8.0 L (8.4-10.2) mg/dL Magnesium 2.0 (1.6-2.3) mg/dL Total Bilirubin 0.5 (0.2-1.3) mg/dL AST 21 (17-59) U/L ALT 13 (4-49) U/L Alkaline Phosphatase 47 (38-126) U/L Troponin I 0.560 H* (0.000-0.034) ng/mL Total Protein 5.8 L (6.3-8.2) g/dL Albumin 3.6 (3.5-5.0) g/dL Stool Occult Blood (Negative) Blood Type A Negative Blood Type Recheck A Neg Bld Type Recheck Status No Antibody Screen NEGATIVE Crossmatch See Detail Spec Expiration Date 07/24/2020 - 231107/21/20 07/21/20 Range/Units 21:12 21:12 WBC (3.8-10.6) k/uL RBC (4.30-5.90) m/uL Hgb (13.0-17.5) gm/dL Hct (39.0-53.0) % MCV (80.0-100.0) fL MCH (25.0-35.0) pg MCHC (31.0-37.0) g/dL RDW (11.5-15.5) % Plt Count (150-450) k/uL Neutrophils % % Lymphocytes % % Monocytes % % Eosinophils % % Basophils % % Neutrophils # (1.3-7.7) k/uL Lymphocytes # (1.0-4.8) k/uL Monocytes # (0-1.0) k/uL Eosinophils # (0-0.7) k/uL Basophils # (0-0.2) k/uL PT (9.0-12.0) sec INR (<1.2) APTT (22.0-30.0) sec Sample Site ABG pH (7.35-7.45) ABG pCO2 (35-45) mmHg ABG pO2 (83-108) mmHg ABG HCO3 (21-25) mmol/L ABG Total CO2 (19-24) mmol/L ABG O2 Saturation (94-97) % ABG Base Excess mmol/L Andrés Test FiO2 % Sodium (137-145) mmol/L Potassium (3.5-5.1) mmol/L Chloride (98-107) mmol/L Carbon Dioxide (22-30) mmol/L Anion Gap mmol/L BUN (9-20) mg/dL Creatinine (0.66-1.25) mg/dL Est GFR (CKD-EPI)AfAm (>60 ml/min/1.73 sqM) Est GFR (CKD-EPI)NonAf (>60 ml/min/1.73 sqM) Glucose (74-99) mg/dL Plasma Lactic Acid Gage 3.4 H* (0.7-2.0) mmol/L Calcium (8.4-10.2) mg/dL Magnesium (1.6-2.3) mg/dL Total Bilirubin (0.2-1.3) mg/dL AST (17-59) U/L ALT (4-49) U/L Alkaline Phosphatase (38-126) U/L Troponin I (0.000-0.034) ng/mL Total Protein (6.3-8.2) g/dL Albumin (3.5-5.0) g/dL Stool Occult Blood Positive (Negative) Blood Type Blood Type Recheck Bld Type Recheck Status Antibody Screen Crossmatch Spec Expiration Date Critical Care Time Critical Care Time: Yes Total Critical Care Time: 45 Critical Care Time: I would like to bill critical care time patient requiring transfusion. Theime was spent obtaining history from EMS and the patient. Examining the patient. Ordering tests and radiology studies and interpreting the studies. Ordering blood transfusion and therapies and reevaluating the patient. Disposition Clinical Impression: Anemia, GI bleed Disposition: ADMITTED IP TO THIS [facility] Condition: Serious Referrals: Edward Bowen MD [Primary Care Provider] - 1-2 days - Out of Hospital Transfer - Req. Specs Out of Hospital Transfer - Requested Specifics: Medical ICU
[2020-07-21 20:21] LABS: Albumin 3.6 g/dL (3.5-5.0); Potassium 4.1 mmol/L (3.5-5.1); Total Bilirubin 0.5 mg/dL (0.2-1.3); Total Protein 5.8 g/dL (6.3-8.2)
[2020-07-21] MEDS ORDERED: EMPTY BAG 1 BAG with HUMAN PROTHROMBIN COMPLX 1,668 UNIT IV ONE (20:30)
[2020-07-21] MEDS ORDERED: PANTOPRAZOLE 40 MG/10 ML VIAL IVP ONE (20:58)
[2020-07-21] MEDS ORDERED: SODIUM CHLORIDE 0.9% 1,000 ML IV ONE (20:58)
[2020-07-21] MEDS ORDERED: Kcentra PER PHARMACY 1 EACH MISC MISCELLANE PRN (20:59)
[2020-07-21] MEDS ORDERED: PHYTONADIONE 10 MG in SODIUM CHLORIDE 0.9% 50 ML IVPB STA (21:09)
[2020-07-21] MEDS ORDERED: NALOXONE 0.4 MG/ML 1 ML VIAL IV PRN (22:28)
[2020-07-22] MEDS ORDERED: ONDANSETRON 4 MG/2 ML VIAL IVP STA (00:42)
[2020-07-22 08:19] LABS: Anisocytosis Slight; Basophils # (A) 0.1 k/uL (0-0.2); Basophils % (A) 1 %; Eosinophils # (A) 0.1 k/uL (0-0.7); Eosinophils % (A) 1 %; HCT 26.1 % (39.0-53.0); Lymphocytes # (A) 1.4 k/uL (1.0-4.8); Lymphocytes % (A) 13 %; MCH 30.5 pg (25.0-35.0); MCHC 34.2 g/dL (31.0-37.0); MCV 89.2 fL (80.0-100.0); Mean Platelet Volume 8.6; Monocytes # (A) 0.8 k/uL (0-1.0); Monocytes % (A) 8 %; Neutrophils # (A) 7.9 k/uL (1.3-7.7); Neutrophils % (A) 77 %; Platelet Count 137 k/uL (150-450); RBC 2.93 m/uL (4.30-5.90); RDW 17.9 % (11.5-15.5); WBC 10.3 k/uL (3.8-10.6)
[2020-07-22 08:26] LABS: ABG PCO2 18 mmHg (35-45)
[2020-07-22 08:30] LABS: HGB 8.9 gm/dL (13.0-17.5)
[2020-07-22 08:31] LABS: Albumin 3.6 g/dL (3.5-5.0); Calcium 7.4 mg/dL (8.4-10.2); Potassium 5.3 mmol/L (3.5-5.1); Total Bilirubin 0.8 mg/dL (0.2-1.3); Total Protein 5.8 g/dL (6.3-8.2)
[2020-07-22 08:35] LABS: INR 1.4 (<1.2); Prothrombin Time 14.2 sec (9.0-12.0)
[2020-07-22] MEDS ORDERED: HUMAN PROTHROMBIN COMPLX 500 UNIT/16 ML VIAL IV ONE (09:00)
[2020-07-22] MEDS: PANTOPRAZOLE 40 MG/10 ML VIAL IVP SCH ×2 (09:41→20:57)
[2020-07-22 14:12] LABS: Reticulocyte % 2.4 % (0.5-2.0)
--- NOTE | 2020-07-22 14:35 | P.HPIM ---
History of Present Illness 80-year-old pleasant male with history of atrial fibrillation on anticoagulation with Eliquis came in with a very low hemoglobin leading to shortness of breath and lethargy. Patient doesn't have any fever chills patient denied any blood in the stools or dark stools. Patient is found to have hemoglobin of around 4 with blood transfusion it went up to 8. Patient denied any fever chills dysuria nausea vomiting. Patient denied any chest pain. Although patient denied any dark stools patient usually has multiple stools in a day as per the patient is baseline. Patient is not a real good historian. Patient does have heart fail ure with EF of around 30-35% with severe pulmonary hypertension patient does use oxygen at home. Patient has a end-stage renal disease on hemodialysis dependent Wednesday and Wednesday. Review of Systems REVIEW OF SYSTEMS: CONSTITUTIONAL: No fever. HEENT: No recent visual problems or hearing problems. Denied any sore throat. CARDIOVASCULAR: No chest pain, orthopnea, PND, no palpitations, no syncope. PULMONARY: , no cough, no hemoptysis. GASTROINTESTINAL: No diarrhea, no nausea, no vomiting, no abdominal pain. NEUROLOGICAL: No headaches, no weakness, no numbness. HEMATOLOGICAL: Denies any bleeding or petechiae. GENITOURINARY: Denies any burning micturition, frequency, or urgency. MUSCULOSKELETAL/RHEUMATOLOGICAL: Denies any joint pain, swelling, or any muscle pain. ENDOCRINE: Denies any polyuria or polydipsia. The rest of the 14-point review of systems is negative. Past Medical History Past Medical History: Coronary Artery Disease (CAD), Chest Pain / Angina, Heart Failure, GI Bleed, Hyperlipidemia, Hypertension, Myocardial Infarction (NH), Pneumonia, Renal Disease, Vascular Disorder Additional Past Medical History / Comment(s): Pt recently admitted to [facility] on 07/02/20 with Afib RVR. Other hx: lower GI bleed, anemia, iron deficiency anemia, ESRD with dialysis-last dialysis 07/20/20, mineral bone disease, diverticulosis, colon polyp (removed), PVD , neck fx as a young person with seizures following last one years ago. Last Myocardial Infarction Date:: 2013 History of Any Multi-Drug Resistant Organisms: None Reported Past Surgical History: Heart Catheterization With Stent Additional Past Surgical History / Comment(s): 11/19/14 EGD with bx and Colonoscopy with polypectomy, bilateral cataract removal with lens implants, shunt L arm. Past Anesthesia/Blood Transfusion Reactions: No Reported Reaction Date of Last Stent Placement:: 2007 Smoking Status: Current every day smoker, Light tobacco smoker - Past Family History Father Family Medical History: Myocardial Infarction (NH) Additional Family Medical History / Comment(s): Father at age 59 of a NH Mother Family Medical History: CVA/TIA Additional Family Medical History / Comment(s): Mother of a brain hemorrage. Medications and Allergies Home Medications Medication Instructions Recorded Confirmed Type Atorvastatin Calcium [Lipitor] 40 mg PO DAILY 07/02/20 07/21/20 History Calcium Acetate [PhosLo] 667 mg PO TID-W/MEALS tab 07/04/20 07/21/20 Rx Metoprolol Tartrate [Lopressor] 50 mg PO BID 30 Days #60 tab 07/04/20 07/21/20 Rx Nicotine 14Mg/24Hr Patch [Habitrol] 1 patch TRANSDERM DAILY #0 patch 07/04/20 07/21/20 Rx Awilda-Fred 0.8mg 0.8 mg PO DAILY #0 07/04/20 07/21/20 Rx Warfarin [Coumadin] 5 mg PO DAILY 30 Days #30 tab 07/04/20 07/21/20 Rx lisinopriL [Zestril] 5 mg PO DAILY 30 Days #30 tab 07/04/20 07/21/20 Rx Aspirin EC [Ecotrin Low Dose] 81 mg PO DAILY 07/20/20 07/21/20 History Folic Acid-Vit B Complex-Vit C 1 tab PO DAILY 07/20/20 07/21/20 History [Nephrocaps] Lidocaine-Prilocaine Cream [Emla 1 applic TOPICAL DAILY PRN 07/20/20 07/21/20 History Cream 2.5%/2.5%] Pantoprazole [Protonix] 40 mg PO DAILY 07/20/20 07/21/20 History Allergies Allergy/AdvReac Type Severity Reaction Status Date / Time No Known Allergies Allergy Verified 07/21/20 21:51 Physical Exam Vitals: Vital Signs Temp Pulse Resp BP Pulse Ox 07/22/20 13:19 72 18 115/55 97 07/22/20 11:56 73 18 118/51 96 07/22/20 10:00 75 18 117/56 97 07/22/20 09:12 73 18 122/99 100 07/22/20 07:41 71 18 94/71 100 07/22/20 07:00 97.4 F L 75 18 106/65 100 07/22/20 06:00 77 16 118/61 98 07/22/20 05:00 97.5 F L 76 18 110/54 99 07/22/20 04:00 75 20 107/80 98 07/22/20 03:00 82 20 122/58 98 07/22/20 02:00 78 20 123/53 98 07/22/20 01:56 97.3 F L 85 18 121/50 100 07/22/20 01:00 87 18 125/54 100 07/22/20 00:55 97.4 F L 80 20 118/55 99 07/22/20 00:44 97.5 F L 82 18 130/52 100 07/21/20 23:57 97.3 F L 81 18 127/55 98 07/21/20 23:55 97.5 F L 86 18 136/87 07/21/20 23:47 97.4 F L 86 18 135/53 100 07/21/20 23:43 97.4 F L 81 18 140/57 100 07/21/20 23:39 97.4 F L 82 20 135/53 99 07/21/20 23:30 97.4 F L 84 18 140/67 96 07/21/20 22:40 97.4 F L 84 18 143/59 97 07/21/20 22:30 97.4 F L 84 20 135/55 100 07/21/20 22:24 97.4 F L 84 20 135/55 100 07/21/20 22:13 97.2 F L 87 20 134/60 97 07/21/20 22:00 30 H 07/21/20 21:43 97.5 F L 81 20 121/53 100 07/21/20 21:41 97.4 F L 81 20 135/53 100 07/21/20 21:33 97.8 F 86 20 117/46 07/21/20 21:22 97.8 F 88 20 117/64 97 07/21/20 21:11 81 22 117/64 97 07/21/20 20:20 81 20 84/64 97 07/21/20 19:16 97.8 F 30 H 126/57 100 Intake and Output 07/21/20 07/22/20 07/22/20 22:59 06:59 14:59 Intake Total 310 787 Balance 310 787 Intake: Blood Product 310 787 Ffp 24 Cp2d Unit 214 [id number] Ffp 24 Cpd Unit 263 [id number] Rc As-1 Unit 0 310 [id number] Rc As-1 Unit 310 [id number] Other: Weight 70.307 kg 70.307 kg PHYSICAL EXAMINATION: GENERAL: The patient is alert and oriented x3, not in any acute distress. Well developed, well nourished. HEENT: Pupils are round and equally reacting to light. EOMI. No scleral icterus. No conjunctival pallor. Normocephalic, atraumatic. No pharyngeal erythema. No thyromegaly. CARDIOVASCULAR: S1 and S2 present. No rubs, or gallops. A grade 4/6 severe systolic murmur in the aortic area PULMONARY: Chest is clear to auscultation, no wheezing or crackles. ABDOMEN: Soft, nontender, nondistended, normoactive bowel sounds. No palpable organomegaly. MUSCULOSKELETAL: No joint swelling or deformity. EXTREMITIES: No cyanosis, clubbing, or pedal edema. NEUROLOGICAL: Gross neurological examination did not reveal any focal deficits. SKIN: No rashes. Results CBC & Chem 7: 07/22/20 07:55 07/22/20 07:55 Labs: Abnormal Lab Results - Last 24 Hours (Table) 07/21/20 07/21/20 07/21/20 Range/Units 19:24 19:41 19:58 WBC 12.8 H (3.8-10.6) k/uL RBC 1.42 L (4.30-5.90) m/uL Hgb 4.4 L* D (13.0-17.5) gm/dL Hct 13.1 L* (39.0-53.0) % RDW (11.5-15.5) % Plt Count (150-450) k/uL Neutrophils # 9.0 H (1.3-7.7) k/uL Retic Count 2.4 H (0.5-2.0) % PT (9.0-12.0) sec INR (<1.2) APTT (22.0-30.0) sec ABG pH >7.70 H* (7.35-7.45) ABG pCO2 18 L* (35-45) mmHg ABG pO2 132 H (83-108) mmHg ABG O2 Saturation 99.7 H (94-97) % Potassium (3.5-5.1) mmol/L BUN (9-20) mg/dL Creatinine (0.66-1.25) mg/dL Glucose (74-99) mg/dL Plasma Lactic Acid Gage (0.7-2.0) mmol/L Calcium (8.4-10.2) mg/dL AST (17-59) U/L ALT (4-49) U/L Troponin I (0.000-0.034) ng/mL Total Protein (6.3-8.2) g/dL Crossmatch 07/21/20 07/21/20 07/21/20 Range/Units 19:58 19:58 19:58 WBC (3.8-10.6) k/uL RBC (4.30-5.90) m/uL Hgb (13.0-17.5) gm/dL Hct (39.0-53.0) % RDW (11.5-15.5) % Plt Count (150-450) k/uL Neutrophils # (1.3-7.7) k/uL Retic Count (0.5-2.0) % PT 29.4 H (9.0-12.0) sec INR 3.0 H (<1.2) APTT 34.0 H (22.0-30.0) sec ABG pH (7.35-7.45) ABG pCO2 (35-45) mmHg ABG pO2 (83-108) mmHg ABG O2 Saturation (94-97) % Potassium (3.5-5.1) mmol/L BUN 79 H (9-20) mg/dL Creatinine 6.53 H (0.66-1.25) mg/dL Glucose 123 H (74-99) mg/dL Plasma Lactic Acid Gage (0.7-2.0) mmol/L Calcium 8.0 L (8.4-10.2) mg/dL AST (17-59) U/L ALT (4-49) U/L Troponin I 0.560 H* (0.000-0.034) ng/mL Total Protein 5.8 L (6.3-8.2) g/dL Crossmatch 07/21/20 07/21/20 07/22/20 Range/Units 21:12 21:12 00:04 WBC (3.8-10.6) k/uL RBC (4.30-5.90) m/uL Hgb (13.0-17.5) gm/dL Hct (39.0-53.0) % RDW (11.5-15.5) % Plt Count (150-450) k/uL Neutrophils # (1.3-7.7) k/uL Retic Count (0.5-2.0) % PT (9.0-12.0) sec INR (<1.2) APTT (22.0-30.0) sec ABG pH (7.35-7.45) ABG pCO2 (35-45) mmHg ABG pO2 (83-108) mmHg ABG O2 Saturation (94-97) % Potassium (3.5-5.1) mmol/L BUN (9-20) mg/dL Creatinine (0.66-1.25) mg/dL Glucose (74-99) mg/dL Plasma Lactic Acid Gage 3.4 H* 3.0 H* (0.7-2.0) mmol/L Calcium (8.4-10.2) mg/dL AST (17-59) U/L ALT (4-49) U/L Troponin I (0.000-0.034) ng/mL Total Protein (6.3-8.2) g/dL Crossmatch See Detail 07/22/20 07/22/20 07/22/20 Range/Units 07:55 07:55 07:55 WBC (3.8-10.6) k/uL RBC 2.93 L (4.30-5.90) m/uL Hgb 8.9 L D (13.0-17.5) gm/dL Hct 26.1 L (39.0-53.0) % RDW 17.9 H (11.5-15.5) % Plt Count 137 L (150-450) k/uL Neutrophils # 7.9 H (1.3-7.7) k/uL Retic Count (0.5-2.0) % PT 14.2 H (9.0-12.0) sec INR 1.4 H (<1.2) APTT (22.0-30.0) sec ABG pH (7.35-7.45) ABG pCO2 (35-45) mmHg ABG pO2 (83-108) mmHg ABG O2 Saturation (94-97) % Potassium 5.3 H (3.5-5.1) mmol/L BUN 87 H (9-20) mg/dL Creatinine 6.67 H (0.66-1.25) mg/dL Glucose 116 H (74-99) mg/dL Plasma Lactic Acid Gage (0.7-2.0) mmol/L Calcium 7.4 L (8.4-10.2) mg/dL AST 138 H (17-59) U/L ALT 66 H (4-49) U/L Troponin I (0.000-0.034) ng/mL Total Protein 5.8 L (6.3-8.2) g/dL Crossmatch Thrombosis Risk Factor Assmnt - Choose All That Apply Any of the Below Risk Factors Present?: Yes Each Factor Represents 1 point: Medical pt on bed rest Other Risk Factors: Yes Each Risk Factor Represents 2 Points: Patient confined to bed Each Risk Factor Represents 3 Points: Age 75 years or older Other congenital or acquired thrombophilia - If yes, enter type in comment: No Thrombosis Risk Factor Assessment Total Risk Factor Score: 6 Thrombosis Risk Factor Assessment Level: High Risk Assessment and Plan Plan: Fatigue, shortness of breath: Secondary to severe anemia and patient received blood transfusion on so they'll patient has acute blood less than anemia GI bleed as a his history is really vague. Patient will will monitor here. Patient doesn't need to go to intensive care unit will be admitted to stepdown unit. Patient is on anticoagulation with Eliquis which will be held. Gastroenterology was consulted. - End stage renal disease hemodialysis dependent, nephrology will be consulted. Patient does have mild pulmonary edema. -Congestive heart failure chronic systolic dysfunction without any acute exacerbation -Moderate to severe pulmonary hypertension -Atrial fibrillation: Presently rate controlled patient probably has proximal A. fib anti-correlation is on hold because of severely low hemoglobin and possibility of GI bleed -Hyperlipidemia -Hypertension -Coronary artery disease -Peripheral vascular disease DVT prophylaxis not on anti-correlation because of GI bleed.
--- NOTE | 2020-07-22 15:36 | CONS ---
CONSULTATION PULMONARY/CRITICAL CARE CONSULTATION: DATE OF SERVICE: 07/22/2020 REASON FOR CONSULTATION: GI bleed. This is an 80-year-old male with a history of atrial fibrillation, end-stage renal disease, currently on Wednesday, , Wednesday hemodialysis, and CHF. He comes into the emergency room with complaints of difficulty breathing and lethargy. He apparently was in the emergency room the day before with chest pain and discharged home with a hemoglobin of 8.6. This morning his hemoglobin is 4.4. He has received two units of PRBCs and two units of fresh frozen plasma. Currently, he states he is feeling relatively well. He is on oxygen at 4 L and saline at 75 mL/hour. The patient denies any hemoptysis or hematemesis. He denies any melena or coffee-ground emesis. He denies any bright red bleeding per rectum and denies any blood in the small amount of urine that he produces. Again his hemoglobin over the weekend when he was here initially for chest pain was 8.6 and repeat hemoglobin is 4.4. He was seen by Dr. Cruz on the first visit. On the second visit, he was seen by Dr. Blanton. Anyway, he is waiting for admission to the intensive care unit for GI bleed. Bloods were just recently re-sent. There was no repeat blood work after the fresh frozen plasma and PRBCs were given. HOME MEDICATIONS: Home medications include Lipitor, low-dose aspirin, folic acid, EMLA cream, Protonix, PhosLo, Lopressor, nicotine patch, Awilda Fred, warfarin and lisinopril. ALLERGIES: DENIED. MEDICAL HISTORY: Medical history includes CAD, angina, CHF, GI bleed, hyperlipidemia, hypertension, myocardial infarction, atrial fibrillation, pneumonia, end-stage renal disease, peripheral vascular disease. Other medical problems include iron-deficiency anemia, diverticular disease, colonic polyp and seizure history. SURGICAL HISTORY: Surgical history includes heart catheterization with stent, EGD with biopsy and colonoscopy, polypectomy, bilateral cataract removal and lens implants, and an AV shunt in his left arm. SOCIAL HISTORY: Positive for ongoing tobacco use. He denies any alcohol or illicit drug use. FAMILY HISTORY: Positive for father with myocardial infarction who at age 59 and mother with a history of CVA who of a brain hemorrhage. His primary care physician is Dr. Edward Bowen. REVIEW OF SYSTEMS: CONSTITUTIONAL: Weakness. NEUROLOGIC: Negative. HEENT: Negative. CARDIOVASCULAR: Negative. PULMONARY: Shortness of breath. GI: Negative. : Negative. RHEUMATOLOGIC: Negative. IMMUNOLOGIC: Negative. ENDOCRINOLOGIC: Negative. DERMATOLOGIC: Negative. PHYSICAL EXAMINATION: VITAL SIGNS: Current vital signs are reviewed. His temperature is 97.4, heart rate 71, respiratory rate 18, blood pressure 94/71 with mean of 78. Four-liter saturation is 100%. GENERAL APPEARANCE: He appears in no acute distress. HEENT: Examination is grossly unremarkable. Nasal oxygen in place. NECK: Supple. Full range of motion. No adenopathy. Neck veins are flat. CARDIAC: EKG shows regular rhythm and rate. Heart rate about 80 beats per minute. S1, S2 normal. Heart sounds are distant. LUNGS: Lungs reveal mostly clear breath sounds. There are a few scattered rhonchi. No wheezes or crackles. ABDOMEN: Soft. No tenderness on palpation. Bowel sounds are noted. EXTREMITIES: Intact. Minimal edema. SKIN: Without rash. There are a few areas of ecchymoses. NEUROLOGIC: Neurologic examination is nonfocal. LABS/IMAGING: Labs are reviewed. Initially white count 12.8, hemoglobin 4.4, hematocrit 13.1, platelet count 242,000. PT/INR were 29.4 and 3, PTT was 34.0. Blood gas shows a pO2 of 132, pCO2 of 18, and a pH of 7.70. This is consistent with both a respiratory and metabolic alkalosis. Sodium 138, potassium 4.1, chloride 99, CO2 25. Anion gap is 14. BUN and creatinine were 79 and 6.53. Lactic acid 3.4; repeat 1.8. Troponin 0.560. Albumin 3.6. Stools for occult blood were positive. Microbiology is currently negative. Chest x-ray shows diffuse interstitial changes, likely related to mild interstitial edema. There is cardiomegaly. There may be small bilateral effusions. CURRENT MEDICATIONS: Reviewed. He is currently on Narcan, Zofran, Protonix, vitamin K, saline at 75 mL/hour, and it did look like he got prothrombin complex concentrate. ASSESSMENT: 1. Profound anemia, likely secondary to gastrointestinal bleed in a patient with a history of multiple risk factors for GI bleed, including prior history, end- stage renal disease and chronic Coumadin therapy. 2. History of end-stage renal disease, currently on Wednesday, , Wednesday hemodialysis. 3. History of chronic atrial fibrillation, currently in normal sinus rhythm. 4. History of coronary artery disease with previous stent. 5. Angina pectoris. 6. History of congestive heart failure. 7. Prior history of gastrointestinal bleed. 8. Hyperlipidemia. 9. Essential hypertension. 10.Prior history of myocardial infarction, 2013. 11.Peripheral vascular disease. 12.Iron deficiency anemia. 13.Anemia of chronic disease. 14.History of diverticular disease. 15.Multiple other medical problems and comorbidities. PLAN: Currently, the patient is resting comfortably in the ER. He is awaiting an ICU bed. He has been given vitamin K, 2 units of blood, 2 units of fresh frozen plasma, and prothrombin complex concentrate, which is Kcentra. Currently the patient is not actively bleeding. Awaiting repeat morning labs. Hemodynamically the patient is stable. We will continue to follow. No additional recommendations are made. DAMIANL / IJN: [id number] / TOM
[2020-07-22] MEDS: CALCIUM ACETATE 667 MG TAB PO SCH ×3 (16:16→17:13)
[2020-07-22] MEDS: METOPROLOL TARTRATE 50 MG TAB PO SCH (20:57)
--- NOTE | 2020-07-22 22:03 | P.CONS ---
History of Present Illness - Reason for Consult Consult date: 07/22/20 anemia Requesting physician: Lawson Recio - Chief Complaint shortness of breath, weakness - History of Present Illness 80-year-old male with multiple medical comorbidities including atrial fibrillation on Coumadin therapy, end-stage renal disease on hemodialysis, con gestive heart failure and diverticulosis who presented to the hospital due to shortness of breath and weakness. Patient had been feeling increasingly short of breath and weak. He denied any nausea, vomiting, change in bowel habits or signs or symptoms of GI bleeding. He reports a baseline bowel movements are 3-5 times daily, normal in color and small in volume. The patient is also on daily aspirin therapy Stool testing on presentation was positive for occult blood. Patient was found to have a severely depressed and will then on presentation at 4.4 currently 8.9 this was normal earlier in the year. Other laboratory evaluation significant for total bilirubin 0.5, alkaline phosphatase 21, AST 13 and ALT 47. The patient is status post transfusion of 2 units of packed red blood cells. Previously he underwent endoscopic evaluation with colonoscopy in 11/2014 significant for diverticulosis and polypectomy and EGD in 12/2014 performed for evaluation of coffee-ground emesis showing mild gastritis. Review of Systems REVIEW OF SYSTEMS: CONSTITUTIONAL: Denies any fevers, chills, weight change but the patient did report fatigue prior to presentation. CARDIOVASCULAR: Denies any chest pain, palpitations high or low blood pressures, history of atrial fibrillation RESPIRATORY: Denies any hemoptysis or cough, but patient did complain of shor tness of breath on presentation. GENITOURINARY: No dysuria or hematuria, he does have a history of end-stage renal disease on hemodialysis. MUSCULOSKELETAL: No focalweakness reported. SKIN: Denies any new rashes or lesions, jaundice or pallor. PSYCHIATRIC: Denies any depression or anxiety. NEUROLOGY: Denies headache, denies any new focal deficits. EARS/NOSE/THROAT: No recent hearing change, congestion, nasal discharge or sore throat. EYES: No pain in eyes, discharge or change in vision. GASTROINTESTINAL: As per HPI. Past Medical History Past Medical History: Coronary Artery Disease (CAD), Chest Pain / Angina, Heart Failure, GI Bleed, Hyperlipidemia, Hypertension, Myocardial Infarction (MA), Pneumonia, Renal Disease, Vascular Disorder Additional Past Medical History / Comment(s): Pt recently admitted to [facility] on 07/02/20 with Afib RVR. Other hx: lower GI bleed, anemia, iron deficiency anemia, ESRD with dialysis-last dialysis 07/20/20, mineral bone disease, diverticulosis, colon polyp (removed), PVD , neck fx as a young person with seizures following last one years ago. Last Myocardial Infarction Date:: 2013 History of Any Multi-Drug Resistant Organisms: None Reported Past Surgical History: Heart Catheterization With Stent Additional Past Surgical History / Comment(s): 11/19/14 EGD with bx and Colonoscopy with polypectomy, bilateral cataract removal with lens implants, shunt L arm. Past Anesthesia/Blood Transfusion Reactions: No Reported Reaction Date of Last Stent Placement:: 2007 Smoking Status: Current every day smoker, Light tobacco smoker - Past Family History Father Family Medical History: Myocardial Infarction (MA) Additional Family Medical History / Comment(s): Father at age 59 of a MA Mother Family Medical History: CVA/TIA Additional Family Medical History / Comment(s): Mother of a brain hemorrage. Medications and Allergies Home Medications Medication Instructions Recorded Confirmed Type Atorvastatin Calcium [Lipitor] 40 mg PO DAILY 07/02/20 07/21/20 History Calcium Acetate [PhosLo] 667 mg PO TID-W/MEALS tab 07/04/20 07/21/20 Rx Metoprolol Tartrate [Lopressor] 50 mg PO BID 30 Days #60 tab 07/04/20 07/21/20 Rx Nicotine 14Mg/24Hr Patch [Habitrol] 1 patch TRANSDERM DAILY #0 patch 07/04/20 1 09/20/19 Rx Awilda-Fred 0.8mg 0.8 mg PO DAILY #0 07/04/20 07/21/20 Rx Warfarin [Coumadin] 5 mg PO DAILY 30 Days #30 tab 07/04/20 07/21/20 Rx lisinopriL [Zestril] 5 mg PO DAILY 30 Days #30 tab 07/04/20 07/21/20 Rx Aspirin EC [Ecotrin Low Dose] 81 mg PO DAILY 07/20/20 07/21/20 History Folic Acid-Vit B Complex-Vit C 1 tab PO DAILY 07/20/20 07/21/20 History [Nephrocaps] Lidocaine-Prilocaine Cream [Emla 1 applic TOPICAL DAILY PRN 07/20/20 07/21/20 History Cream 2.5%/2.5%] Pantoprazole [Protonix] 40 mg PO DAILY 07/20/20 07/21/20 History Allergies Allergy/AdvReac Type Severity Reaction Status Date / Time No Known Allergies Allergy Verified 07/21/20 21:51 Physical Exam Vitals: Vital Signs Temp Pulse Resp BP Pulse Ox 07/22/20 11:56 73 18 118/51 96 07/22/20 10:00 75 18 117/56 97 07/22/20 09:12 73 18 122/99 100 07/22/20 07:41 71 18 94/71 100 07/22/20 07:00 97.4 F L 75 18 106/65 100 07/22/20 06:00 77 16 118/61 98 07/22/20 05:00 97.5 F L 76 18 110/54 99 07/22/20 04:00 75 20 107/80 98 07/22/20 03:00 82 20 122/58 98 07/22/20 02:00 78 20 123/53 98 07/22/20 01:56 97.3 F L 85 18 121/50 100 07/22/20 01:00 87 18 125/54 100 07/22/20 00:55 97.4 F L 80 20 118/55 99 07/22/20 00:44 97.5 F L 82 18 130/52 100 07/21/20 23:57 97.3 F L 81 18 127/55 98 07/21/20 23:55 97.5 F L 86 18 136/87 07/21/20 23:47 97.4 F L 86 18 135/53 100 07/21/20 23:43 97.4 F L 81 18 140/57 100 07/21/20 23:39 97.4 F L 82 20 135/53 99 07/21/20 23:30 97.4 F L 84 18 140/67 96 07/21/20 22:40 97.4 F L 84 18 143/59 97 07/21/20 22:30 97.4 F L 84 20 135/55 100 07/21/20 22:24 97.4 F L 84 20 135/55 100 07/21/20 22:13 97.2 F L 87 20 134/60 97 07/21/20 22:00 30 H 07/21/20 21:43 97.5 F L 81 20 121/53 100 07/21/20 21:41 97.4 F L 81 20 135/53 100 07/21/20 21:33 97.8 F 86 20 117/46 07/21/20 21:22 97.8 F 88 20 117/64 97 07/21/20 21:11 81 22 117/64 97 07/21/20 20:20 81 20 84/64 97 07/21/20 19:16 97.8 F 30 H 126/57 100 Intake and Output 07/21/20 07/22/20 07/22/20 22:59 06:59 14:59 Intake Total 310 787 Balance 310 787 Intake: Blood Product 310 787 Ffp 24 Cp2d Unit 214 [id number] Ffp 24 Cpd Unit 263 [id number] Rc As-1 Unit 0 310 [id number] Rc As-1 Unit 310 [id number] Other: Weight 70.307 kg 70.307 kg On physical examination, patient appears comfortable in no apparent distress. HEAD: Normocephalic, atraumatic. EYES: No scleral icterus. No conjunctival injection. MOUTH: No lesions, tongue midline. NECK: Trachea midline, no gross abnormalities. CHEST: decreased air entry in all lung fish. HEART: S1-S2 appreciated. ABDOMEN: Soft,nontender to palpation. Bowel sounds are positive. No organomegaly. No guarding or rigidity. EXTREMITIES: No pedal edema. SKIN: No rashes, no jaundice. NEUROLOGIC: Alert and oriented x3. No focal deficits. Results CBC & Chem 7: 07/22/20 07:55 07/22/20 07:55 Labs: Abnormal Lab Results - Last 24 Hours (Table) 07/21/20 07/21/20 07/21/20 Range/Units 19:41 19:58 19:58 WBC 12.8 H (3.8-10.6) k/uL RBC 1.42 L (4.30-5.90) m/uL Hgb 4.4 L* D (13.0-17.5) gm/dL Hct 13.1 L* (39.0-53.0) % RDW (11.5-15.5) % Plt Count (150-450) k/uL Neutrophils # 9.0 H (1.3-7.7) k/uL PT 29.4 H (9.0-12.0) sec INR 3.0 H (<1.2) APTT 34.0 H (22.0-30.0) sec ABG pH >7.70 H* (7.35-7.45) ABG pCO2 18 L* (35-45) mmHg ABG pO2 132 H (83-108) mmHg ABG O2 Saturation 99.7 H (94-97) % Potassium (3.5-5.1) mmol/L BUN (9-20) mg/dL Creatinine (0.66-1.25) mg/dL Glucose (74-99) mg/dL Plasma Lactic Acid Gage (0.7-2.0) mmol/L Calcium (8.4-10.2) mg/dL AST (17-59) U/L ALT (4-49) U/L Troponin I (0.000-0.034) ng/mL Total Protein (6.3-8.2) g/dL Crossmatch 07/21/20 07/21/20 07/21/20 Range/Units 19:58 19:58 21:12 WBC (3.8-10.6) k/uL RBC (4.30-5.90) m/uL Hgb (13.0-17.5) gm/dL Hct (39.0-53.0) % RDW (11.5-15.5) % Plt Count (150-450) k/uL Neutrophils # (1.3-7.7) k/uL PT (9.0-12.0) sec INR (<1.2) APTT (22.0-30.0) sec ABG pH (7.35-7.45) ABG pCO2 (35-45) mmHg ABG pO2 (83-108) mmHg ABG O2 Saturation (94-97) % Potassium (3.5-5.1) mmol/L BUN 79 H (9-20) mg/dL Creatinine 6.53 H (0.66-1.25) mg/dL Glucose 123 H (74-99) mg/dL Plasma Lactic Acid Gage (0.7-2.0) mmol/L Calcium 8.0 L (8.4-10.2) mg/dL AST (17-59) U/L ALT (4-49) U/L Troponin I 0.560 H* (0.000-0.034) ng/mL Total Protein 5.8 L (6.3-8.2) g/dL Crossmatch See Detail 07/21/20 07/22/20 07/22/20 Range/Units 21:12 00:04 07:55 WBC (3.8-10.6) k/uL RBC 2.93 L (4.30-5.90) m/uL Hgb 8.9 L D (13.0-17.5) gm/dL Hct 26.1 L (39.0-53.0) % RDW 17.9 H (11.5-15.5) % Plt Count 137 L (150-450) k/uL Neutrophils # 7.9 H (1.3-7.7) k/uL PT (9.0-12.0) sec INR (<1.2) APTT (22.0-30.0) sec ABG pH (7.35-7.45) ABG pCO2 (35-45) mmHg ABG pO2 (83-108) mmHg ABG O2 Saturation (94-97) % Potassium (3.5-5.1) mmol/L BUN (9-20) mg/dL Creatinine (0.66-1.25) mg/dL Glucose (74-99) mg/dL Plasma Lactic Acid Gage 3.4 H* 3.0 H* (0.7-2.0) mmol/L Calcium (8.4-10.2) mg/dL AST (17-59) U/L ALT (4-49) U/L Troponin I (0.000-0.034) ng/mL Total Protein (6.3-8.2) g/dL Crossmatch 07/22/20 07/22/20 Range/Units 07:55 07:55 WBC (3.8-10.6) k/uL RBC (4.30-5.90) m/uL Hgb (13.0-17.5) gm/dL Hct (39.0-53.0) % RDW (11.5-15.5) % Plt Count (150-450) k/uL Neutrophils # (1.3-7.7) k/uL PT 14.2 H (9.0-12.0) sec INR 1.4 H (<1.2) APTT (22.0-30.0) sec ABG pH (7.35-7.45) ABG pCO2 (35-45) mmHg ABG pO2 (83-108) mmHg ABG O2 Saturation (94-97) % Potassium 5.3 H (3.5-5.1) mmol/L BUN 87 H (9-20) mg/dL Creatinine 6.67 H (0.66-1.25) mg/dL Glucose 116 H (74-99) mg/dL Plasma Lactic Acid Gage (0.7-2.0) mmol/L Calcium 7.4 L (8.4-10.2) mg/dL AST 138 H (17-59) U/L ALT 66 H (4-49) U/L Troponin I (0.000-0.034) ng/mL Total Protein 5.8 L (6.3-8.2) g/dL Crossmatch Chest x-ray: report reviewed (chest x-ray with coarse lung markings suggestive of pulmonary fibrosis.) Assessment and Plan (1) Normocytic anemia Narrative/Plan: 80-year-old male with multiple medical comorbidities including atrial fibrillation on anticoagulation therapy, end-stage renal disease and congestive heart failure who presented due to shortness of breath and weakness. Found to be severely anemic with a hemoglobin of 4.4 decreased from baseline hemoglobin, currently status post transfusion hemoglobin is 8.9. Patient denies any signs or symptoms of GI bleeding, stool was positive for occult blood. Prior endoscopic evaluation with EGD and colonoscopy in 2014 with findings of gastritis and diverticulosis with polypectomy. Unclear etiology, likely multifactorialin the setting of end-stage renal disease and anemia of chronic disease given positive stool for occult blood and severe fall in hemoglobin from baseline plan is for endoscopic evaluation to rule out GI bleed. Current Visit: Yes Status: Acute Code(s): D64.9 - ANEMIA, UNSPECIFIED SNOMED Code(s): 630753081 (2) Stool guaiac positive Current Visit: Yes Status: Acute Code(s): R19.5 - OTHER FECAL ABNORMALITIES SNOMED Code(s): 09255353 Plan: supportive care Clear liquid diet Continue monitor hemoglobin and hematocrit and transfuse as needed Continue to hold anticoagulation therapy Continue to monitor for signs or symptoms of GI bleeding Continue Protonix therapy Plan for EGD and colonoscopy for further evaluation and to rule out source of GI bleed Extensive discussion with the patient regarding the risks, benefits and possible complications of the procedure with all questions answered to his satisfaction, timing of endoscopy last be coordinated as patient is scheduled for dialysis tomorrow, will plan for endoscopic evaluation on 07/24/2020 Thank you for allowing us to participate in the care of the patient
[2020-07-23 01:34] LABS: % Iron Saturation 37.01 (15.00-50.00); Iron 94 ug/dL (65-175); Total Iron Binding Capacity 254 ug/dL (228-460)
[2020-07-23 02:19] LABS: Ferritin 937.5 ng/mL (22.0-322.0); Folate, Serum >24.0 ng/mL
[2020-07-23] MEDS: CALCIUM ACETATE 667 MG TAB PO SCH ×3 (06:22→16:44)
[2020-07-23] MEDS ORDERED: PANTOPRAZOLE 40 MG TABLET PO SCH (07:30)
[2020-07-23] MEDS: PANTOPRAZOLE 40 MG/10 ML VIAL IVP SCH ×2 (08:17→21:52)
[2020-07-23] MEDS: NICOTINE 14MG/24HR PATCH TRANSDERM SCH (08:31)
[2020-07-23] MEDS: METOPROLOL TARTRATE 50 MG TAB PO SCH ×2 (08:31→21:51)
[2020-07-23] MEDS: ATORVASTATIN 40 MG TAB PO SCH (08:31)
[2020-07-23] MEDS: FOLIC ACID-VIT B COMPLEX-VIT C 1 CAP PO SCH (08:31)
[2020-07-23] MEDS ORDERED: FOLIC ACID-VIT B COMPLEX-VIT C 1 CAP PO SCH (09:00)
--- NOTE | 2020-07-23 09:09 | P.PN ---
Subjective Progress Note Date: 07/23/20 Principal diagnosis: Severe anemia-due to possible GI bleed 80-year-old male with a history of atrial fibrillation on anticoagulation therapy presented to the emergency room with a low hemoglobin with associated symptoms of shortness of breath and generalized weakness patient complaint of black tarry stools with diffuse abdominal pain during emergency room stay patient had a hemoglobin of 4 received transfusion hemoglobin currently at 8.8 patient denies chest discomfort. Her patient during the night to black tarry stools patient dependent on oxygen patient dialysis patient Wednesday and Wednesday Objective - Vital Signs Vital signs: Vital Signs Temp 98.0 F 07/23/20 07:53 Pulse 65 07/23/20 07:53 Resp 18 07/23/20 07:53 BP 114/61 07/23/20 07:53 Pulse Ox 92 L 07/23/20 07:53 Intake & Output 07/22/20 07/23/20 07/23/20 18:59 06:59 18:59 Output Total 100 Balance -100 Weight 70.307 kg 70.1 kg Output: Urine 100 Other: Voiding Method Urinal # Voids 1 - Constitutional General appearance: Present: mild distress - EENT Eyes: Present: EOMI, PERRLA ENT: Present: hard of hearing Ears: bilateral: normal - Neck Thyroid: bilateral: normal size - Respiratory Respiratory: bilateral: diminished (Anterior lung fish), rales (Bilateral posterior bases) - Cardiovascular Details: Normal sinus rhythm with a right bundle-branch pattern Heart rate: 94 Rhythm: regularly irregular Heart sounds: normal: S1, S2 Abnormal Heart Sounds: Present: systolic murmur (Aortic) - Peripheral edema ankle Peripheral Edema: bilateral: Trace - Peripheral pulses dorsalis pedis Peripheral Pulses: bilateral: Diminished - Gastrointestinal General gastrointestinal: Present: tenderness Localized gastrointestinal: tender: diffuse - Integumentary Integumentary: Present: decreased turgor, pale - Neurologic Neurologic: Present: CNII-XII intact - Musculoskeletal Musculoskeletal: Present: generalized weakness - Psychiatric Psychiatric: Present: A&O x's 3, appropriate affect, intact judgment & insight - Allied health notes Allied health notes reviewed: nursing - Labs CBC & Chem 7: 07/22/20 07:55 07/22/20 07:55 Labs: Abnormal Lab Results - Last 24 Hours (Table) 07/21/20 07/21/20 Range/Units 19:24 19:24 Retic Count 2.4 H (0.5-2.0) % Ferritin 937.5 H (22.0-322.0) ng/mL - Imaging and Cardiology Chest x-ray: report reviewed Assessment and Plan Assessment: Anemiapossibly due to GI bleed End-stage renal diseasehemodialysis dependent Congestive heart failure chronic systolic dysfunction with ejection fraction of 30-35% Pulmonary hypertension Paroxysmal atrial fibrillationholding anticoagulation therapy due to possible GI bleed Hyperlipidemia Hypertension Coronary artery disease Referral vascular disease (1) Anemia Narrative/Plan: Received blood transfusions and emergency roomhemoglobin at baseline 8.8 due to severe renal disease Current Visit: Yes Status: Acute Code(s): D64.9 - ANEMIA, UNSPECIFIED SNOMED Code(s): 416049343 (2) GI bleed Narrative/Plan: Clear liquid diet GI consulted Current Visit: Yes Status: Acute Code(s): K92.2 - GASTROINTESTINAL HEMORRHAGE, UNSPECIFIED SNOMED Code(s): 73817534 (3) Stool guaiac positive Narrative/Plan: Hemo-positive GI consult Current Visit: Yes Status: Acute Code(s): R19.5 - OTHER FECAL ABNORMALITIES SNOMED Code(s): 07624981 Plan: Severe anemia possibly secondary to GI bleedconsulted GI for recommendations End-stage renal disease-hemodialysis dependent Wednesdayconsulted nephrology for dialysis recommendations Continue consultation with pulmonology due to multiple comorbidities Continue medical management Time with Patient: Greater than 30
[2020-07-23 09:36] LABS: Anisocytosis Slight; HCT 27.5 % (39.0-53.0); HGB 8.8 gm/dL (13.0-17.5); MCH 29.1 pg (25.0-35.0); MCHC 31.9 g/dL (31.0-37.0); MCV 91.4 fL (80.0-100.0); Mean Platelet Volume 9.7; Platelet Count 139 k/uL (150-450); RBC 3.01 m/uL (4.30-5.90); RDW 18.1 % (11.5-15.5); WBC 12.5 k/uL (3.8-10.6)
[2020-07-23 09:49] LABS: Calcium 7.7 mg/dL (8.4-10.2)
[2020-07-23 10:19] LABS: Magnesium 2.1 mg/dL (1.6-2.3); Phosphorus 8.1 mg/dL (2.5-4.5)
[2020-07-23] MEDS ORDERED: DARBEPOETIN ALFA 60 MCG/0.3 ML SYRINGE SQ SCH (12:00)
--- NOTE | 2020-07-23 12:41 | P.PN ---
Subjective Progress Note Date: 07/23/20 Principal diagnosis: Anemia The patient was seen and examined lying in bed. He is tolerating a clear liquid diet. His presenting hemoglobin the emergency department was 4.4, he is status post 2 units of packed red blood cells and fresh frozen plasma. His hemoglobin today is 8.8. He denies any bowel movements that are black or bloody. He has titrated disease on hemodialysis, normal schedule is Wednesday. Patient is unsure if he supposed undergo hemodialysis today. Patient was agreeable and is scheduled for an upper and lower endoscopy tomorrow. Objective - Vital Signs Vital signs: Vital Signs Temp 98.0 F 07/23/20 07:53 Pulse 65 07/23/20 07:53 Resp 18 07/23/20 07:53 BP 114/61 07/23/20 07:53 Pulse Ox 92 L 07/23/20 07:53 Intake & Output 07/22/20 07/23/20 07/23/20 18:59 06:59 18:59 Output Total 100 Balance -100 Weight 70.307 kg 70.1 kg Output: Urine 100 Other: Voiding Method Urinal # Voids 1 - Exam General appearance: The patient is alert, oriented, in no acute distress. HET: Head is normocephalic and atraumatic. Conjunctiva pink. Sclera anicteric. Neck: Supple without lymphadenopathy. Abdomen: Soft, nontender, nondistended with bowel sounds. No guarding or rigidity. Extremities: Normal skin color and turgor. No pedal edema Neurological: No focal deficits. Alert and oriented 3. - Labs CBC & Chem 7: 07/23/20 08:05 07/23/20 08:05 Labs: Abnormal Lab Results - Last 24 Hours (Table) 07/21/20 07/21/20 Range/Units 19:24 19:24 Retic Count 2.4 H (0.5-2.0) % Ferritin 937.5 H (22.0-322.0) ng/mL Assessment and Plan (1) Normocytic anemia Narrative/Plan: 80-year-old male with multiple medical comorbidities including atrial fibrillation on anticoagulation therapy, end-stage renal disease and congestive heart failure who presented due to shortness of breath and weakness. Found to be severely anemic with a hemoglobin of 4.4 decreased from baseline hemoglobin, currently status post transfusion hemoglobin is 8.9. Patient denies any signs or symptoms of GI bleeding, stool was positive for occult blood. Prior endoscopic evaluation with EGD and colonoscopy in 2014 with findings of roxane ritis and diverticulosis with polypectomy. Unclear etiology, likely multifactorialin the setting of end-stage renal disease and anemia of chronic disease given positive stool for occult blood and severe fall in hemoglobin from baseline plan is for endoscopic evaluation to rule out GI bleed. Current Visit: Yes Status: Acute Code(s): D64.9 - ANEMIA, UNSPECIFIED SNOMED Code(s): 031811204 (2) Acute febrile illness Current Visit: No Status: Acute Code(s): R50.9 - FEVER, UNSPECIFIED SNOMED Code(s): 125459647 Plan: supportive care Clear liquid diet, NPO after midnight Continue monitor hemoglobin and hematocrit and transfuse as needed Continue to hold anticoagulation therapy Continue to monitor for signs or symptoms of GI bleeding Continue Protonix therapy Bowel prep this afternoon Plan for EGD and colonoscopy for further evaluation and to rule out source of GI bleed Extensive discussion with the patient regarding the risks, benefits and possible complications of the procedure with all questions answered to his satisfaction, timing of endoscopy last be coordinated as patient is scheduled for dialysis tomorrow, will plan for endoscopic evaluation on 07/24/2020 The impression and plan of care has been dictated as directed. I performed a history and examination of this patient, discussed the same with the dictator. I agree with the dictator's note ,documented as a scribe. Any additional findings or plans will be noted.
--- NOTE | 2020-07-23 14:31 | P.PN ---
Subjective Progress Note Date: 07/23/20 Principal diagnosis: Profound anemia, likely secondary to GI bleeding, ESRD 80-year-old male patient who we saw in consultation yesterday on 07/22/2020 after patient was admitted to the intensive care unit on 07/21/2020 after she came into the ER for evaluation of shortness of breath and lethargy. Patient was not sure whether or not she was having blood in the stools or dark stools, but his blood work showed a hemoglobin of 4.4, patient was transfused with the 2 units of packed red blood cells, and 2 units of fresh frozen plasma. Denies hemoptysis or hematemesis. Patient is on hemodialysis on Wednesday and Wednesday schedule. Has remained hemodynamically stable, has been transferred out of intensive care unit and has remained stable overnight, GI service is following. Patient denies any specific complaints, no abdominal pain, no hematemesis, no melena. He states he had a small bowel movement overnight, but she didn't look whether or not it had blood in it. Coumadin remains on hold, she takes Coumadin for chronic A. fib. No shortness of breath today, no abdominal pain, no complaints of chest pain Objective - Vital Signs Vital signs: Vital Signs Temp 97.6 F 07/23/20 11:46 Pulse 60 07/23/20 11:46 Resp 16 07/23/20 11:46 BP 111/58 07/23/20 11:46 Pulse Ox 93 L 07/23/20 11:46 Intake & Output 07/22/20 07/23/20 07/23/20 18:59 06:59 18:59 Intake Total 240 Output Total 100 Balance -100 240 Weight 70.307 kg 70.1 kg 70.1 kg Intake: Oral 240 Output: Urine 100 Other: Voiding Method Urinal Bedpan Urinal # Voids 1 1 # Bowel Movements 1 - Exam GENERAL EXAM: Alert, very pleasant, 80-year-old white male, on 3 L of oxygen and the pulse ox 92% comfortable in no apparent distress. HEAD: Normocephalic/atraumatic. EYES: Normal reaction of pupils, equal size. Conjunctiva pink, sclera white. NOSE: Clear with pink turbinates. THROAT: No erythema or exudates. NECK: No masses, no JVD, no thyroid enlargement, no adenopathy. CHEST: No chest wall deformity. Symmetrical expansion. LUNGS: Equal air entry with no crackles, wheeze, rhonchi or dullness. CVS: Irregular rate and rhythm, normal S1 and S2, no gallops, no murmurs, no rubs ABDOMEN: Soft, nontender. No hepatosplenomegaly, normal bowel sounds, no guarding or rigidity. EXTREMITIES: No clubbing, no edema, no cyanosis, 2+ pulses and upper and lower extremities. MUSCULOSKELETAL: Muscle strength and tone normal. SPINE: No scoliosis or deformity SKIN: No rashes CENTRAL NERVOUS SYSTEM: Alert and oriented -3. No focal deficits, tone is normal in all 4 extremities. PSYCHIATRIC: Alert and oriented -3. Appropriate affect. Intact judgment and insight. - Labs CBC & Chem 7: 07/23/20 08:05 07/23/20 08:05 Labs: Abnormal Lab Results - Last 24 Hours (Table) 07/21/20 07/23/20 07/23/20 Range/Units 19:24 08:05 08:05 WBC 12.5 H (3.8-10.6) k/uL RBC 3.01 L (4.30-5.90) m/uL Hgb 8.8 L (13.0-17.5) gm/dL Hct 27.5 L (39.0-53.0) % RDW 18.1 H (11.5-15.5) % Plt Count 139 L (150-450) k/uL Potassium 6.0 H (3.5-5.1) mmol/L BUN 108 H* (9-20) mg/dL Creatinine 8.31 H* (0.66-1.25) mg/dL Calcium 7.7 L (8.4-10.2) mg/dL Phosphorus 8.1 H (2.5-4.5) mg/dL Ferritin 937.5 H (22.0-322.0) ng/mL Assessment and Plan Plan: Assessment: #1. Acute GI blood loss anemia requiring blood transfusion, patient presented with hemoglobin of 4.4, transfused with 2 units of packed red blood cells and 2 units of FFP #2. Mild coagulopathy related to warfarin therapy, reversed with 2 units of fresh frozen plasma #3. Shortness of breath, weakness, related to acute anemia #4. Chronic anemia #5. End-stage renal disease, on hemodialysis, on Wednesday schedule #6. Hypertension #7. CAD #8. Chronic CHF unspecified #9. Hypertension #10. Hyperlipidemia #11. Previous history of myocardial infarction #12. Chronic A. fib on Coumadin Plan: Hemodynamically stable, no complaints of worsening dyspnea, denies any hematemesis or melena. Vital signs are stable, no chest pain, no shortness of breath, he is tolerating clear liquid diet, GI service is following and plan on EGD and colonoscopy tomorrow. His labs have been noted, nephrology is following, patient likely will be dialyzed today. I performed a history & physical examination of the patient and discussed their management with my nurse practitioner, Josefa Cardenas. I reviewed the nurse practitioner's note and agree with the documented findings and plan of care. Lung sounds are positive for diffuse wheezes throughout the lung fish. The findings and the impression was discussed with the patient. I attest to the documentation by the nurse practitioner. Time with Patient: Less than 30
[2020-07-23] MEDS ORDERED: LIDOCAINE 1% (10MG/ML) FOR IV START INTRADERMA PRN (15:47)
[2020-07-23] MEDS ORDERED: PEG 3350-NA SULF,BICARB,CL/KCL 4,000 ML BOTTLE PO ONE (16:00)
[2020-07-23] MEDS: LACTATED RINGERS 1,000 ML IV SCH (16:26)
--- NOTE | 2020-07-23 17:16 | CONS ---
CONSULTATION REASON FOR CONSULT: End-stage renal disease. HISTORY OF PRESENT ILLNESS: The patient is an 80-year-old male with end-stage renal disease, on hemodialysis on a Wednesday, , Wednesday schedule. He was admitted to the hospital with complaints of weakness and some shortness of breath. He was found to have a hemoglobin around 4 g/dL. Patient admitted to having had some dark stools, although he denies any obvious bleeding. He denies use of significant nonsteroidal anti-inflammatory agents. Patient was dialyzed on Wednesday and he tolerated his treatment well. He does have underlying cardiomyopathy, EF 30%-35%. Patient has received packed RBCs of 4 units with 2 units of fresh frozen plasma. His INR was 3 at the time of admission. The patient is not on any anticoagulation prior to admission. He does take proton pump inhibitors. PAST MEDICAL HISTORY: End-stage renal disease, hypertension, anemia of chronic disease, CKD mineral bone disorder, coronary artery disease, history of CHF, previous history of GI bleed, hyperlipidemia, MS, peripheral vascular disease, history of atrial fibrillation. now in sinus rhythm, diverticulosis, remote history of seizures. PAST SURGICAL HISTORY: Cardiac catheterization, coronary stent placement, EGD, colonoscopy, cataract surgeries, AV fistula, polypectomy. SOCIAL HISTORY: Positive for smoking, no history of drug abuse or alcohol abuse. MEDICATIONS: Prior to admission include Lipitor, PhosLo, Lopressor, Awilda Fred, Coumadin, Zestril, aspirin, Nephrocaps, Protonix. ALLERGIES: None. PHYSICAL EXAMINATION: Patient is comfortable, awake, not in any acute distress. Alert, oriented x3. Blood pressure is 114/61, heart rate 65 per minute, patient is afebrile. Examination of the heart S1, S2. Examination of the lungs, bilateral breath sounds are heard. Abdomen is soft, nontender. Examination of the lower extremities shows no significant edema. FIL[employer] DES[employer] exam grossly intact. LABS: Show sodium 138, potassium 6.0, chloride 101. CO2 is 23, BUN 108, serum creatinine 8.3, hemoglobin 8.8 g/dL. ASSESSMENT: 1. End-stage renal disease, on hemodialysis on a Wednesday, , Wednesday schedule. 2. Hyperkalemia associated with packed RBCs transfusion, end-stage renal disease and ongoing GI bleed. Expect improvement, post dialysis today. 3. CKD mineral bone disorder, maintained on PhosLo. 4. Dyslipidemia. 5. GI bleed scheduled for endoscopy tomorrow, patient is being followed by GI. 6. Mild hypervolemia. PLAN: Hemodialysis today UF about 2-2.5 L as tolerated and repeat labs in a.m. I will maintain patient on Aranesp as well. MMODL / IJN: [id number] /
[2020-07-24] MEDS: CALCIUM ACETATE 667 MG TAB PO SCH ×3 (06:29→18:31)
--- NOTE | 2020-07-24 07:50 | P.PN ---
Subjective Progress Note Date: 07/24/20 Principal diagnosis: Severe anemia-due to possible GI bleed 80-year-old male with a history of atrial fibrillation on anticoagulation therapy presented to the emergency room with a low hemoglobin with associated symptoms of shortness of breath and generalized weakness patient complaint of black tarry stools with diffuse abdominal pain during emergency room stay patient had a hemoglobin of 4 received transfusion hemoglobin currently at 8.8 patient denies chest discomfort. Her patient during the night to black tarry stools patient dependent on oxygen patient dialysis patient Wednesday and Wednesday. Patient was dialyzed yesterday to 2.5 liters removed. Hemoglobin and hematocrit stabilized awaiting GI procedures Objective - Vital Signs Vital signs: Vital Signs Temp 98.5 F 07/24/20 04:00 Pulse 70 07/24/20 04:00 Resp 20 07/24/20 04:00 BP 118/70 07/24/20 04:00 Pulse Ox 94 L 07/24/20 04:00 Intake & Output 07/23/20 07/24/20 07/24/20 18:59 06:59 18:59 Intake Total 480 500 Output Total 2500 4500 Balance -2020 -4000 Weight 70.1 kg 76 kg Intake: Oral 480 500 Output: Urine 100 Stool 4400 Hemodialysis 2500 Other: Voiding Method Bedpan Bedpan Urinal Urinal # Voids 1 # Bowel Movements 2 4 - Constitutional General appearance: Present: mild distress - EENT Eyes: Present: EOMI, PERRLA ENT: Present: hard of hearing Ears: bilateral: normal - Neck Neck: Present: normal ROM Thyroid: bilateral: normal size - Respiratory Respiratory: bilateral: diminished (Anterior), rales (Posterior) - Cardiovascular Details: Normal sinus rhythm Heart rate: 74 Rhythm: regular Abnormal Heart Sounds: Present: systolic murmur - Peripheral pulses dorsalis pedis Peripheral Pulses: bilateral: Normal - Gastrointestinal General gastrointestinal: Present: tenderness Localized gastrointestinal: tender: diffuse - Integumentary Integumentary: Present: pale - Neurologic Neurologic: Present: CNII-XII intact - Musculoskeletal Musculoskeletal: Present: generalized weakness - Psychiatric Psychiatric: Present: A&O x's 3, appropriate affect, intact judgment & insight - Allied health notes Allied health notes reviewed: nursing - Labs CBC & Chem 7: 07/23/20 08:05 07/23/20 08:05 Labs: Abnormal Lab Results - Last 24 Hours (Table) 07/23/20 07/23/20 Range/Units 08:05 08:05 WBC 12.5 H (3.8-10.6) k/uL RBC 3.01 L (4.30-5.90) m/uL Hgb 8.8 L (13.0-17.5) gm/dL Hct 27.5 L (39.0-53.0) % RDW 18.1 H (11.5-15.5) % Plt Count 139 L (150-450) k/uL Potassium 6.0 H (3.5-5.1) mmol/L BUN 108 H* (9-20) mg/dL Creatinine 8.31 H* (0.66-1.25) mg/dL Calcium 7.7 L (8.4-10.2) mg/dL Phosphorus 8.1 H (2.5-4.5) mg/dL - Imaging and Cardiology Chest x-ray: report reviewed Assessment and Plan Assessment: Anemiapossibly due to GI bleed End-stage renal diseasehemodialysis dependent Congestive heart failure chronic systolic dysfunction with ejection fraction of 30-35% Pulmonary hypertension Paroxysmal atrial fibrillationholding anticoagulation therapy due to possible GI bleed Hyperlipidemia Hypertension Coronary artery disease Peripheral vascular disease (1) Anemia Narrative/Plan: Received blood transfusions and emergency roomhemoglobin at baseline 8.8 due to severe renal disease Current Visit: Yes Status: Acute Code(s): D64.9 - ANEMIA, UNSPECIFIED SNOMED Code(s): 947936261 (2) GI bleed Narrative/Plan: Awaiting GI for procedures Current Visit: Yes Status: Acute Code(s): K92.2 - GASTROINTESTINAL HEMORRHAGE, UNSPECIFIED SNOMED Code(s): 49028985 (3) Stool guaiac positive Narrative/Plan: Hemo-positive GI consult Current Visit: Yes Status: Acute Code(s): R19.5 - OTHER FECAL ABNORMALITIES SNOMED Code(s): 87527007 Plan: Severe anemia possibly secondary to GI bleedfollowing gastroenterology for procedures to locate possible GI bleed End-stage renal disease-hemodialysis dependent Wednesdaydialysis yesterday2-1/2 L removed Continue consultation with pulmonology due to multiple comorbidities Continue medical management Time with Patient: Greater than 30
[2020-07-24] MEDS: METOPROLOL TARTRATE 50 MG TAB PO SCH ×2 (08:34→21:55)
[2020-07-24] MEDS: NICOTINE 14MG/24HR PATCH TRANSDERM SCH (08:34)
[2020-07-24] MEDS: PANTOPRAZOLE 40 MG/10 ML VIAL IVP SCH ×2 (08:34→21:55)
[2020-07-24] MEDS: ATORVASTATIN 40 MG TAB PO SCH (08:34)
[2020-07-24] MEDS: FOLIC ACID-VIT B COMPLEX-VIT C 1 CAP PO SCH (08:39)
--- NOTE | 2020-07-24 09:36 | P.CRDCN ---
History of Present Illness Consult date: 07/24/20 Chief complaint: Shortness of breath, lethargy History of present illness: This is a pleasant 80-year-old gentleman with documented history of coronary artery disease with prior RCA stenting in 2007, ischemic cardiomyopathy, valvular heart disease, chronic kidney disease on hemodialysis, hypertension, hyperlipidemia, chronic nicotine dependence, paroxysmal atrial fibrillation for which the patient was recently started on Coumadin. Patient presented to the hospital on this occasion with symptoms of lethargy and shortness of breath. He also was very fatigued. On EMS arrival, it was noted that his oxygen was significantly low and the patient was placed on a BiPAP. Patient was also noted to have elevated blood pressure and was given sublingual nitroglycerin. He denies any chest discomfort. The patient denies having any fever or chills, no blood in the stool or dark stool. His hemoglobin on arrival here was 4.4, status post blood transfusions, hemoglobin this morning is 8.8. The patient has been seen by GI service and is scheduled today to undergo an EGD and colonoscopy. Laboratory data, white blood cell count 12.5, hemoglobin this morning 8.8, platelet count 139. The patient's INR at admission was 3.0, 1.4 yesterday, no INR today yet. PH greater than 7.7 pCO2 18, pO2 132, HCO3 23, total CO2 23. Sodium 138, potassium 6.0, BUN 108, creatinine 8.3. The patient's lactic acid on admission was 3.4, 1.8 this morning. Magnesium 2.1. AST 138 ALT 66. Cardiology consultation was requested, regarding anticoagul ation. Patient was seen and examined this morning, states overall he's feeling a little bit stronger. Scheduled today to undergo his EGD and colonoscopy. Past Medical History Past Medical History: Coronary Artery Disease (CAD), Chest Pain / Angina, Heart Failure, GI Bleed, Hyperlipidemia, Hypertension, Myocardial Infarction (MT), Pneumonia, Renal Disease, Vascular Disorder Additional Past Medical History / Comment(s): Pt recently admitted to [facility] on 07/02/20 with Afib RVR. Other hx: lower GI bleed, anemia, iron deficiency a nemia, ESRD with dialysis-last dialysis 07/20/20, mineral bone disease, diverticulosis, colon polyp (removed), PVD , neck fx as a young person with seizures following last one years ago. Last Myocardial Infarction Date:: 2013 History of Any Multi-Drug Resistant Organisms: None Reported Past Surgical History: Heart Catheterization With Stent Additional Past Surgical History / Comment(s): 11/19/14 EGD with bx and Colonoscopy with polypectomy, bilateral cataract removal with lens implants, shunt L arm. Past Anesthesia/Blood Transfusion Reactions: No Reported Reaction Date of Last Stent Placement:: 2007 Smoking Status: Current every day smoker, Light tobacco smoker - Past Family History Father Family Medical History: Myocardial Infarction (MT) Additional Family Medical History / Comment(s): Father at age 59 of a MT Mother Family Medical History: CVA/TIA Additional Family Medical History / Comment(s): Mother of a brain hemorrage. Medications and Allergies Home Medications Medication Instructions Recorded Confirmed Type Atorvastatin Calcium [Lipitor] 40 mg PO DAILY 07/02/20 07/21/20 History Calcium Acetate [PhosLo] 667 mg PO TID-W/MEALS tab 07/04/20 07/21/20 Rx Metoprolol Tartrate [Lopressor] 50 mg PO BID 30 Days #60 tab 07/04/20 07/21/20 Rx Nicotine 14Mg/24Hr Patch [Habitrol] 1 patch TRANSDERM DAILY #0 patch 07/04/20 07/21/20 Rx Awilda-Fred 0.8mg 0.8 mg PO DAILY #0 07/04/20 07/21/20 Rx Warfarin [Coumadin] 5 mg PO DAILY 30 Days #30 tab 07/04/20 07/21/20 Rx lisinopriL [Zestril] 5 mg PO DAILY 30 Days #30 tab 07/04/20 07/21/20 Rx Aspirin EC [Ecotrin Low Dose] 81 mg PO DAILY 07/20/20 07/21/20 History Folic Acid-Vit B Complex-Vit C 1 tab PO DAILY 07/20/20 07/21/20 History [Nephrocaps] Lidocaine-Prilocaine Cream [Emla 1 applic TOPICAL DAILY PRN 07/20/20 07/21/20 History Cream 2.5%/2.5%] Pantoprazole [Protonix] 40 mg PO DAILY 07/20/20 07/21/20 History Allergies Allergy/AdvReac Type Severity Reaction Status Date / Time No Known Allergies Allergy Verified 07/21/20 21:51 Physical Exam Vitals: Vital Signs Temp Pulse Pulse Resp BP Pulse Ox 07/24/20 09:05 16 07/24/20 08:40 65 16 07/24/20 07:58 98.4 F 65 16 136/62 98 07/24/20 04:00 98.5 F 60 70 20 118/70 94 L 07/24/20 00:00 98.7 F 65 60 20 140/60 92 L 07/23/20 20:00 97.4 F L 60 60 18 124/93 98 07/23/20 16:53 58 L 18 07/23/20 16:15 97.4 F L 79 18 142/58 07/23/20 16:14 97.5 F L 58 L 18 138/54 98 07/23/20 11:46 97.6 F 60 16 111/58 93 L Intake and Output 07/23/20 07/24/20 07/24/20 22:59 06:59 14:59 Intake Total 240 500 Output Total 2500 4500 2200 Balance -2260 -4000 -2200 Intake: Oral 240 500 Output: Urine 100 Stool 4400 2200 Hemodialysis 2500 Other: Voiding Method Bedpan Bedpan Bedpan Urinal Urinal Urinal # Bowel Movements 2 4 Weight 76 kg PHYSICAL EXAMINATION: GENERAL: 80-year-old gentleman in no acute distress at the time of my examination HEENT: Head is atraumatic, normocephalic. Pupils equal, round. Sclera anicteric. Conjunctiva are clear. Mucous membranes of the mouth are moist. Neck is supple. There is no elevated jugular venous pressure. No carotid bruit is heard. HEART EXAMINATION: Heart S1, S2 normal. No murmur or gallop heard. CHEST EXAMINATION: Lungs reveal scattered rhonchi throughout. ABDOMEN: Soft, nontender. Bowel sounds are heard. No organomegaly noted. EXTREMITIES: 2+ peripheral pulses with no evidence of peripheral edema and no calf tenderness noted. NEUROLOGIC patient is awake, alert and oriented 3 . . Results 07/23/20 08:05 07/23/20 08:05 CBC 07/23/20 Range/Units 08:05 WBC 12.5 H (3.8-10.6) k/uL RBC 3.01 L (4.30-5.90) m/uL Hgb 8.8 L (13.0-17.5) gm/dL Hct 27.5 L (39.0-53.0) % Plt Count 139 L (150-450) k/uL Comprehensive Metabolic Panel 07/23/20 Range/Units 08:05 Sodium 138 (137-145) mmol/L Potassium 6.0 H (3.5-5.1) mmol/L Chloride 101 (98-107) mmol/L Carbon Dioxide 23 (22-30) mmol/L BUN 108 H* (9-20) mg/dL Creatinine 8.31 H* (0.66-1.25) mg/dL Glucose 97 (74-99) mg/dL Calcium 7.7 L (8.4-10.2) mg/dL Current Medications Generic Name Dose Route Start Last Admin Trade Name Freq PRN Reason Stop Dose Admin Atorvastatin Calcium 40 mg 07/23/20 09:00 07/24/20 08:34 Atorvastatin 40 Mg Tab PO 40 mg DAILY SHERRIE Administration Calcium Acetate 667 mg 07/22/20 12:30 07/24/20 06:29 Calcium Acetate 667 Mg Tab PO Not Given TID-W/MEALS SHERRIE Darbepoetin George 60 mcg 07/23/20 12:00 07/23/20 16:26 Darbepoetin George 60 Mcg/0.3 Ml Syringe SQ 60 mcg Q7D SHERRIE Administration Lactated Ringer's 1,000 mls @ 20 mls/hr 07/23/20 16:00 07/23/20 16:26 Lactated Ringers IV 20 mls/hr .Q24H SHERRIE Administration Lidocaine HCl 0.1 ml 07/23/20 15:47 Lidocaine 1% (10mg/Ml) For Iv Start INTRADERMA PER PROTOCOL PRN IV Start Metoprolol Tartrate 50 mg 07/22/20 21:00 07/24/20 08:34 Metoprolol Tartrate 50 Mg Tab PO 50 mg BID SHERRIE Administration Multivit/Ca Carb/B Cmplx/FA/Prenat 1 each 07/23/20 09:00 07/24/20 08:39 Folic Acid-Vit B Complex-Vit C 1 Cap PO 1 each DAILY SHERRIE Administration Naloxone HCl 0.2 mg 07/21/20 22:28 Naloxone 0.4 Mg/Ml 1 Ml Vial IV Q2M PRN Opioid Reversal Nicotine 1 patch 07/23/20 09:00 07/24/20 08:34 Nicotine 14mg/24hr Patch TRANSDERM 1 patch DAILY SHERRIE Administration Pantoprazole Sodium 40 mg 07/22/20 09:00 07/24/20 08:34 Pantoprazole 40 Mg/10 Ml Vial IVP 40 mg BID SHERRIE Administration Intake and Output 07/23/20 07/24/20 07/24/20 22:59 06:59 14:59 Intake Total 240 500 Output Total 2500 4500 2200 Balance -2260 -4000 -2200 Intake: Oral 240 500 Output: Urine 100 Stool 4400 2200 Hemodialysis 2500 Other: Voiding Method Bedpan Bedpan Bedpan Urinal Urinal Urinal # Bowel Movements 2 4 Weight 76 kg 07/23/20 08:05 07/23/20 08:05 EKG Interpretations (text) EKG shows a normal sinus rhythm with a right bundle branch block pattern, nonspecific ST-T wave changes. Assessment and Plan Plan: Assessment and plan #1 acute blood loss anemia requiring blood transfusion, hemoglobin 4.4 on admi ssion, status post 2 units of packed red blood cells and 2 units of FFP, hemoglobin this morning is 8.8. #2 paroxysmal atrial fibrillation, patient was on Coumadin at home for anticoagulation, INR 3.0 on admission. #3 end-stage renal disease on hemodialysis #4 hypertension #5 coronary artery disease with prior LAD stenting in 2007 #6 ischemic cardiomyopathy with documented ejection fraction of 35-40% #7 chronic congestive heart failure, systolic #8 hypertension #9 hyperlipidemia Plan Patient is scheduled today to undergo an EGD and colonoscopy. I did have a discussion with the patient this morning regarding anticoagulation with Eliquis if it is cleared by GI after his testing is performed. We will check into coverage regarding Eliquis. Patient is not currently on an MANOJ inhibitor or Al dactone because of elevated potassium. Further recommendations to follow. DNP note has been reviewed, I agree with a documented findings and plan of care. Patient was seen and examined.
[2020-07-24 09:49] LABS: Anisocytosis Slight; Basophils # (A) 0.1 k/uL (0-0.2); Basophils % (A) 1 %; Eosinophils # (A) 0.2 k/uL (0-0.7); Eosinophils % (A) 2 %; HCT 25.9 % (39.0-53.0); HGB 8.6 gm/dL (13.0-17.5); Lymphocytes % (A) 14 %; MCH 29.9 pg (25.0-35.0); MCHC 33.3 g/dL (31.0-37.0); MCV 89.7 fL (80.0-100.0); Mean Platelet Volume 9.4; Monocytes # (A) 0.5 k/uL (0-1.0); Monocytes % (A) 7 %; Neutrophils # (A) 5.5 k/uL (1.3-7.7); Neutrophils % (A) 75 %; Platelet Count 109 k/uL (150-450); RBC 2.89 m/uL (4.30-5.90); RDW 17.5 % (11.5-15.5); WBC 7.3 k/uL (3.8-10.6)
[2020-07-24 09:58] LABS: INR 1.3 (<1.2); Prothrombin Time 13.2 sec (9.0-12.0)
[2020-07-24 10:12] LABS: Albumin 3.2 g/dL (3.5-5.0); Calcium 7.9 mg/dL (8.4-10.2); Potassium 4.5 mmol/L (3.5-5.1); Total Bilirubin 0.9 mg/dL (0.2-1.3); Total Protein 5.4 g/dL (6.3-8.2)
[2020-07-24] MEDS ORDERED: LACTATED RINGERS 1,000 ML IV ONE ×2 (13:35)
--- NOTE | 2020-07-24 13:58 | P.PCN ---
Date of Procedure: 07/24/20 Description of Procedure: Brief history: 80-year-old male with multiple medical comorbidities including atrial fibrillation on Coumadin therapy, end-stage renal disease on hemodialysis, congestive heart failure and diverticulosis who presented to the hospital due to shortness of breath and weakness. Patient had been feeling increasingly short of breath and weak. He denied any nausea, vomiting, change in bowel habits or signs or symptoms of GI bleeding. He reports a baseline bowel movements are 3-5 times daily, normal in color and small in volume. The patient is also on daily aspirin therapy Stool testing on presentation was positive for occult blood. Patient was found to have a severely depressed and will then on presentation at 4.4 currently 8.9 this was normal earlier in the year. Other laboratory evaluation significant for total bilirubin 0.5, alkaline phosphatase 21, AST 13 and ALT 47. The patient is status post transfusion of 2 units of packed red blood cells. Previously he underwent endoscopic evaluation with colonoscopy in 11/2014 significant for diverticulosis and polypectomy and EGD in 12/2014 performed for evaluation of coffee-ground emesis showing mild gastritis. Procedure performed: Esophagogastroduodenoscopy with biopsy Colonoscopy aborted/failed Estimated blood loss: Minimal. Preoperative diagnosis: Anemia Anesthesia: MAC Procedure: After informed consent was obtained from the patient was brought into the endoscopy unit and IV sedation was administered by anesthesia under continuous monitoring. Initially upper endoscopy was done. The Olympus GF 190 video endoscope was inserted into the mouth and esophagus intubated without any d ifficulty and was gradually advanced into the stomach and duodenum and carefully examined. The bulb and second part of the duodenum appeared normal, with biopsies taken. The scope was then withdrawn into the stomach adequately insufflated with air and upon careful examination the antrum and body, cardia and fundus appeared normal, except for some mild scattered erythema in the antrum and body suggestive of mild gastritis with biopsies taken. The scope was then withdrawn into the esophagus. The GE junction was located at 40 cm to the incisors. It appeared regular with no erythema erosions or ulcerations. Rest of the esophagus appeared normal. Patient tolerated the procedure well. At this time the patient continued to remain sedation. Initial digital rectal examination was normal. Olympus CF 190 video colonoscope was then inserted into the rectum where a large amount of liquid and solid stool was noted. Attempts to advance the endoscope were prohibited by the solid stool which severely limited visualization. The case was aborted. Impression: 1. Mild gastritis. Biopsies of the duodenum and antrum and body. 2. Failed/aborted colonoscopy secondary to poor prep. Recommendations: Findings of this examination were discussed with the patient as well as the medical team. Okay for clear liquid diet. If the patient is amenable would continue with further prep and plan for colonoscopy tomorrow. Continue monitor hemoglobin and hematocrit and transfuse as needed.
--- NOTE | 2020-07-24 14:39 | P.PN ---
Subjective Progress Note Date: 07/24/20 Principal diagnosis: GI bleed The patient is seen today 07/24/2020 in follow-up on the selective care unit. He remains awake and alert in no acute distress. Maintaining O2 saturations up to 99% on 3 L/m per nasal cannula. He's been afebrile. Hemodynamically stable. He is status post 2 units of packed red blood cells this admission. Current hemoglobin 8.6. White count 7.3. White count 119,000. INR 1.3. Sodium 139. Potassium 4.5. BUN 55. Creatinine 5.67. AST 362. ALT 651. Remains on Protonix. EGD today reveals mild gastritis. Biopsies of the duodenum and an trum of the body. Failed/aborted colonoscopy secondary to poor prep. Objective - Vital Signs Vital signs: Vital Signs Temp 97.9 F 07/24/20 11:44 Pulse 63 07/24/20 11:44 Resp 16 07/24/20 12:00 BP 140/63 07/24/20 11:44 Pulse Ox 99 07/24/20 11:44 Intake & Output 07/23/20 07/24/20 07/24/20 18:59 06:59 18:59 Intake Total 480 500 100 Output Total 2500 4500 4400 Balance -2020 -4000 -4300 Weight 70.1 kg 76 kg Intake: IV 100 Oral 480 500 Output: Urine 100 Stool 4400 4400 Hemodialysis 2500 Other: Voiding Method Bedpan Bedpan Bedpan Urinal Urinal Urinal # Voids 1 # Bowel Movements 2 4 - Exam GENERAL EXAM: Alert, very pleasant, 80-year-old white male, on 3 L of oxygen and the pulse ox 99% comfortable in no apparent distress. HEAD: Normocephalic/atraumatic. EYES: Normal reaction of pupils, equal size. Conjunctiva pink, sclera white. NOSE: Clear with pink turbinates. THROAT: No erythema or exudates. NECK: No masses, no JVD, no thyroid enlargement, no adenopathy. CHEST: No chest wall deformity. Symmetrical expansion. LUNGS: Equal air entry with coarse crackles in the bilateral posterior bases. CVS: Irregular rate and rhythm, normal S1 and S2, no gallops, no murmurs, no rubs ABDOMEN: Soft, nontender. No hepatosplenomegaly, normal bowel sounds, no guarding or rigidity. EXTREMITIES: No clubbing, no edema, no cyanosis, 2+ pulses and upper and lower extremities. MUSCULOSKELETAL: Muscle strength and tone normal. SPINE: No scoliosis or deformity SKIN: No rashes CENTRAL NERVOUS SYSTEM: Alert and oriented -3. No focal deficits, tone is normal in all 4 extremities. PSYCHIATRIC: Alert and oriented -3. Appropriate affect. Intact judgment and insight. - Labs CBC & Chem 7: 07/24/20 08:34 07/24/20 08:34 Labs: Abnormal Lab Results - Last 24 Hours (Table) 07/24/20 07/24/20 07/24/20 Range/Units 08:34 08:34 08:34 RBC 2.89 L (4.30-5.90) m/uL Hgb 8.6 L (13.0-17.5) gm/dL Hct 25.9 L (39.0-53.0) % RDW 17.5 H (11.5-15.5) % Plt Count 109 L (150-450) k/uL PT 13.2 H (9.0-12.0) sec INR 1.3 H (<1.2) BUN 55 H (9-20) mg/dL Creatinine 5.67 H (0.66-1.25) mg/dL Calcium 7.9 L (8.4-10.2) mg/dL AST 362 H (17-59) U/L ALT 651 H (4-49) U/L Total Protein 5.4 L (6.3-8.2) g/dL Albumin 3.2 L (3.5-5.0) g/dL Assessment and Plan Assessment: 1. Acute GI blood loss anemia requiring blood transfusion, patient presented with hemoglobin of 4.4, transfused with 2 units of packed red blood cells and 2 units of FFP. Current hemoglobin 8.6. 2. Mild coagulopathy related to warfarin therapy, reversed with 2 units of fresh frozen plasma 3. Shortness of breath, weakness, related to acute anemia 4. Chronic anemia 5. End-stage renal disease, on hemodialysis, on Wednesday schedule 6. Hypertension 7. CAD 8. Chronic CHF unspecified 9. Hypertension 10. Hyperlipidemia 11. Previous history of myocardial infarction 12. Chronic A. fib on Coumadin Plan: The patient was seen and evaluated by Dr. Basha Currently stable from the pulmonary and critical care standpoint EGD results noted Possible colonoscopy tomorrow Will continue to follow I, the cosigning physician, performed a history & physical examination of the patient. Lungs sounds with coarse crackles in the posterior bases. Maintaining good O2 saturations in the 90s on 3 L/m per nasal cannula. I discussed the assessment and plan of care with my nurse practitioner, Eli Bartholomew. I attest to the above note as dictated by her.
[2020-07-24] MEDS: LACTATED RINGERS 1,000 ML IV SCH (15:01)
--- NOTE | 2020-07-24 15:38 | PN ---
PROGRESS NOTE Patient is seen for followup for end-stage renal disease. He was admitted with severe anemia and hemoglobin of 4.4 g/dL. Patient has been transfused. His hemoglobin is staying at about 8.6 g/dL. Patient is maintained on a Wednesday, , Wednesday schedule for dialysis. He did have EGD done by Dr. Smith which showed mild gastritis. No active bleeding was noted. Colonoscopy was not performed secondary to poor prep. PHYSICAL EXAMINATION: On examination today, blood pressure 140/63, heart rate 63 per minute. He is afebrile. EXAMINATION OF THE HEART: S1 and S2. EXAMINATION OF LUNGS: Bilateral breath sounds are heard. ABDOMEN: Soft, non-tender. Examination of lower extremities shows no evidence of edema. 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 LABS: Labs show sodium 139, potassium 4.5, hemoglobin 8.6 g/dL. ASSESSMENT: 1. End-stage renal disease, on hemodialysis on a Wednesday, , Wednesday schedule. 2. Severe anemia, status post packed RBCs transfusion, status post esophagogastroduodenoscopy which did not show any active bleeding. Mild gastritis was noted. Colonoscopy was aborted secondary to poor prep. No active bleeding noted. Currently patient is maintained on Aranesp. 3. Chronic kidney disease mineral bone disorder. 4. Anemia of chronic disease, maintained on Aranesp as well. PLAN: Hemodialysis in a.m. Goal UF about 2 L. MMODL / IJN: [id number] /
[2020-07-25] MEDS: CALCIUM ACETATE 667 MG TAB PO SCH ×3 (06:42→17:33)
[2020-07-25] MEDS: NICOTINE 14MG/24HR PATCH TRANSDERM SCH (08:07)
[2020-07-25] MEDS: METOPROLOL TARTRATE 50 MG TAB PO SCH ×2 (08:07→19:44)
[2020-07-25] MEDS: FOLIC ACID-VIT B COMPLEX-VIT C 1 CAP PO SCH (08:07)
[2020-07-25] MEDS: PANTOPRAZOLE 40 MG/10 ML VIAL IVP SCH ×2 (08:08→19:45)
[2020-07-25] MEDS: ATORVASTATIN 40 MG TAB PO SCH (08:08)
--- NOTE | 2020-07-25 08:53 | P.PN ---
Subjective Progress Note Date: 07/25/20 Principal diagnosis: Severe anemia-due to possible GI bleed 80-year-old male with a history of atrial fibrillation on anticoagulation therapy presented to the emergency room with a low hemoglobin with associated symptoms of shortness of breath and generalized, black tarry stools with diffuse abdominal pain during emergency room stay patient had a hemoglobin of 4 received transfusion packed red blood cells and fresh frozen plasma currently hemoglobin and hematocrit at baseline. patient dependent on 3 L oxygen .patient dialysis patient Wednesday and Wednesday. Hemoglobin and hematocrit stabilized. Gastroenterologyattempted upper and lower GI scopesuna ble to do colonoscopy due to poor prep. Upper GIsee procedure note from gastroenterology. Objective - Vital Signs Vital signs: Vital Signs Temp 97.4 F L 07/25/20 08:03 Pulse 64 07/25/20 08:03 Resp 18 07/25/20 08:03 BP 149/68 07/25/20 08:03 Pulse Ox 100 07/25/20 08:03 Intake & Output 07/24/20 07/25/20 07/25/20 18:59 06:59 18:59 Intake Total 100 Output Total 6600 Balance -6500 Weight 75 kg Intake: IV 100 Output: Stool 6600 Other: Voiding Method Bedpan Bedpan Urinal Urinal # Voids 1 1 # Bowel Movements 1 - Constitutional General appearance: Present: mild distress - EENT Eyes: Present: EOMI, PERRLA ENT: Present: hard of hearing Ears: bilateral: normal - Neck Thyroid: bilateral: normal size - Respiratory Respiratory: bilateral: diminished (Anterior and posterior) - Cardiovascular Details: Normal sinus rhythm with occasional PACs Heart rate: 64 Rhythm: regular Abnormal Heart Sounds: Present: systolic murmur - Peripheral pulses dorsalis pedis Peripheral Pulses: bilateral: Normal - Gastrointestinal General gastrointestinal: Present: normal bowel sounds Localized gastrointestinal: guarding: diffuse - Integumentary Integumentary: Present: pale - Neurologic Neurologic: Present: CNII-XII intact - Musculoskeletal Musculoskeletal: Present: generalized weakness - Psychiatric Psychiatric: Present: A&O x's 3, appropriate affect, intact judgment & insight - Allied health notes Allied health notes reviewed: nursing (Review procedure note from gastroenterology for upper and lower GI) - Labs CBC & Chem 7: 07/24/20 08:34 07/24/20 08:34 Labs: Abnormal Lab Results - Last 24 Hours (Table) 07/24/20 07/24/20 07/24/20 Range/Units 08:34 08:34 08:34 RBC 2.89 L (4.30-5.90) m/uL Hgb 8.6 L (13.0-17.5) gm/dL Hct 25.9 L (39.0-53.0) % RDW 17.5 H (11.5-15.5) % Plt Count 109 L (150-450) k/uL PT 13.2 H (9.0-12.0) sec INR 1.3 H (<1.2) BUN 55 H (9-20) mg/dL Creatinine 5.67 H (0.66-1.25) mg/dL Calcium 7.9 L (8.4-10.2) mg/dL AST 362 H (17-59) U/L ALT 651 H (4-49) U/L Total Protein 5.4 L (6.3-8.2) g/dL Albumin 3.2 L (3.5-5.0) g/dL Assessment and Plan Assessment: Anemia End-stage renal diseasehemodialysis dependent Congestive heart failure chronic systolic dysfunction with ejection fraction of 30-35% Pulmonary hypertension Paroxysmal atrial fibrillationholding anticoagulation therapy Hyperlipidemia Hypertension Coronary artery disease Peripheral vascular disease (1) Anemia Narrative/Plan: Received blood transfusions and emergency roomhemoglobin at baseline 8.8 due to severe renal disease Current Visit: Yes Status: Acute Code(s): D64.9 - ANEMIA, UNSPECIFIED SNOMED Code(s): 861891407 (2) GI bleed Narrative/Plan: Gastroenterology attempted upper and lower GI scopescolonoscopy unsuccessful due to poor prep Current Visit: Yes Status: Acute Code(s): K92.2 - GASTROINTESTINAL HEMORRHAGE, UNSPECIFIED SNOMED Code(s): 00005838 (3) Stool guaiac positive Narrative/Plan: Hematocrit remained at baseline Current Visit: Yes Status: Acute Code(s): R19.5 - OTHER FECAL ABNORMALITIES SNOMED Code(s): 16973063 Plan: Severe anemia possibly secondary to GI bleedattempted upper and lower GI scopesunsuccessful colonoscopy due to poor preprecommendations for gastroenterology colonoscopy outpatient End-stage renal disease-hemodialysis dependent Wednesdaycontinue consultation with nephrology Continue consultation with pulmonary critical carecleared from their perspective Continue consultation with cardiologyfor recommendations of anticoagulation therapy Continue medical management Time with Patient: Greater than 30
[2020-07-25 10:10] LABS: Anisocytosis Slight; Basophils # (A) 0.1 k/uL (0-0.2); Basophils % (A) 1 %; Eosinophils # (A) 0.1 k/uL (0-0.7); Eosinophils % (A) 2 %; HCT 27.8 % (39.0-53.0); HGB 8.6 gm/dL (13.0-17.5); Hypochromasia Marked; Lymphocytes # (A) 1.3 k/uL (1.0-4.8); Lymphocytes % (A) 15 %; MCH 30.4 pg (25.0-35.0); MCHC 30.8 g/dL (31.0-37.0); MCV 98.7 fL (80.0-100.0); Macrocytosis Slight; Mean Platelet Volume 10.1; Monocytes # (A) 0.7 k/uL (0-1.0); Monocytes % (A) 8 %; Neutrophils # (A) 6.2 k/uL (1.3-7.7); Neutrophils % (A) 72 %; Platelet Count 111 k/uL (150-450); RBC 2.82 m/uL (4.30-5.90); RDW 17.4 % (11.5-15.5); WBC 8.5 k/uL (3.8-10.6)
[2020-07-25 10:16] LABS: Albumin 3.3 g/dL (3.5-5.0); Calcium 7.7 mg/dL (8.4-10.2); Magnesium 2.2 mg/dL (1.6-2.3); Phosphorus 4.6 mg/dL (2.5-4.5); Potassium 5.3 mmol/L (3.5-5.1); Total Bilirubin 0.8 mg/dL (0.2-1.3); Total Protein 5.5 g/dL (6.3-8.2)
--- NOTE | 2020-07-25 11:44 | PN ---
PROGRESS NOTE Patient is seen for followup for end-stage renal disease. He is currently seen on hemodialysis, patient is tolerating his treatment well. PHYSICAL EXAMINATION: On examination today, blood pressure 149/68, heart rate 68 per minute, patient is afebrile. Examination of the heart S1, S2. Examination of the lungs, bilateral breath sounds are heard. Abdomen is soft, nontender. Examination of the lower extremities shows no evidence of edema. PRINCIPAL STRATEGIST exam grossly intact. LABS: Show sodium 137, potassium 5.3, chloride 101, BUN 68, serum creatinine 7.28, hemoglobin 8.6 g/dL. ASSESSMENT: 1. End-stage renal disease, on hemodialysis on a Wednesday, , Wednesday schedule. 2. Acute anemia, most likely from blood loss with hemoglobin at 4.4, status post packed RBCs transfusion. Patient did have EGD which did not show any active bleeding. Colonoscopy could not be done secondary to poor prep. 3. Hyperkalemia associated with end-stage renal disease and GI bleed and packed RBCs transfusion. 4. CKD mineral bone disorder. PLAN: Hemodialysis today and await GI plan regarding colonoscopy. MMODL / IJN: [id number] /
--- NOTE | 2020-07-25 12:14 | P.PN ---
Subjective Progress Note Date: 07/25/20 This is a pleasant 80-year-old gentleman with documented history of coronary artery disease with prior RCA stenting in 2007, ischemic cardiomyopathy, valvular heart disease, chronic kidney disease on hemodialysis, hypertension, hyperlipidemia, chronic nicotine dependence, paroxysmal atrial fibrillation for which the patient was recently started on Coumadin. Patient presented to the hospital on this occasion with symptoms of lethargy and shortness of breath. He also was very fatigued. On EMS arrival, it was noted that his oxygen was significantly low and the patient was placed on a BiPAP. Patient was also noted to have elevated blood pressure and was given sublingual nitroglycerin. He denies any chest discomfort. The patient denies having any fever or chills, no blood in the stool or dark stool. His hemoglobin on arrival here was 4.4, status post blood transfusions, hemoglobin this morning is 8.8. The patient has been seen by GI service and is scheduled today to undergo an EGD and colonoscopy. Laboratory data, white blood cell count 12.5, hemoglobin this morning 8.8, platelet count 139. The patient's INR at admission was 3.0, 1.4 yesterday, no INR today yet. PH greater than 7.7 pCO2 18, pO2 132, HCO3 23, total CO2 23. Sodium 138, potassium 6.0, BUN 108, creatinine 8.3. The patient's lactic acid on admission was 3.4, 1.8 this morning. Magnesium 2.1. AST 138 ALT 66. Cardiology consultation was requested, regarding anticoagulation. Patient was seen and examined this morning, states overall he's feeling a little bit stronger. Scheduled today to undergo his EGD and colonoscopy. 07/25/2020 Patient was seen and examined this morning, currently undergoing dialysis. He underwent an EGD yesterday which revealed mild gastritis, they were unable to complete colonoscopy which is now scheduled for this afternoon. Blood pressure 148/60 with a heart rate in the 60s, 1% on 3 L of oxygen. White blood cell count 8.5, hemoglobin 8.6, platelet count 111. Sodium 137, potassium 5.3, BUN 68, creatinine 7.2. AST 222, ALT 555. Objective - Vital Signs Vital signs: Vital Signs Temp 97.4 F L 07/25/20 08:03 Pulse 64 07/25/20 08:03 Resp 18 07/25/20 08:03 BP 149/68 07/25/20 08:03 Pulse Ox 100 07/25/20 08:03 Intake & Output 07/24/20 07/25/20 07/25/20 18:59 06:59 18:59 Intake Total 100 Output Total 6600 Balance -6500 Weight 75 kg Intake: IV 100 Output: Stool 6600 Other: Voiding Method Bedpan Bedpan Bedpan Urinal Urinal Urinal # Voids 1 1 # Bowel Movements 1 - Exam PHYSICAL EXAMINATION: GENERAL: 80-year-old gentleman in no acute distress at the time of my examination HEENT: Head is atraumatic, normocephalic. Pupils equal, round. Sclera anicteric. Conjunctiva are clear. Mucous membranes of the mouth are moist. Neck is supple. There is no elevated jugular venous pressure. No carotid bruit is heard. HEART EXAMINATION: Heart S1, S2 normal. No murmur or gallop heard. CHEST EXAMINATION: Lungs reveal scattered rhonchi throughout. ABDOMEN: Soft, nontender. Bowel sounds are heard. No organomegaly noted. EXTREMITIES: 2+ peripheral pulses with no evidence of peripheral edema and no calf tenderness noted. NEUROLOGIC patient is awake, alert and oriented 3 . - Labs CBC & Chem 7: 07/25/20 06:34 07/25/20 06:34 Labs: Abnormal Lab Results - Last 24 Hours (Table) 07/21/20 07/25/20 07/25/20 Range/Units 21:12 06:34 06:34 RBC 2.82 L (4.30-5.90) m/uL Hgb 8.6 L (13.0-17.5) gm/dL Hct 27.8 L (39.0-53.0) % MCHC 30.8 L (31.0-37.0) g/dL RDW 17.4 H (11.5-15.5) % Plt Count 111 L (150-450) k/uL Potassium 5.3 H (3.5-5.1) mmol/L Carbon Dioxide 21 L (22-30) mmol/L BUN 68 H (9-20) mg/dL Creatinine 7.28 H* (0.66-1.25) mg/dL Calcium 7.7 L (8.4-10.2) mg/dL Phosphorus 4.6 H (2.5-4.5) mg/dL AST 222 H (17-59) U/L ALT 555 H (4-49) U/L Total Protein 5.5 L (6.3-8.2) g/dL Albumin 3.3 L (3.5-5.0) g/dL Crossmatch See Detail Assessment and Plan Plan: Assessment and plan #1 acute blood loss anemia requiring blood transfusion, hemoglobin 4.4 on admission, status post 2 units of packed red blood cells and 2 units of FFP, hemoglobin this morning is 8.8. #2 paroxysmal atrial fibrillation, patient was on Coumadin at home for anticoagulation, INR 3.0 on admission. #3 end-stage renal disease on hemodialysis #4 hypertension #5 coronary artery disease with prior LAD stenting in 2007 #6 ischemic cardiomyopathy with documented ejection fraction of 35-40% #7 chronic congestive heart failure, systolic #8 hypertension #9 hyperlipidemia Plan EGD was performed yesterday which revealed some gastritis, they were unable to complete the colonoscopy, this will be performed this afternoon. At this point in time we will continue with current medications, await the findings of the colonoscopy. DNP note has been reviewed, I agree with a documented findings and plan of care. Patient was seen and examined.
--- NOTE | 2020-07-25 14:03 | P.PN ---
Subjective Progress Note Date: 07/25/20 Principal diagnosis: GI bleed The patient is seen today 07/24/2020 in follow-up on the selective care unit. He remains awake and alert in no acute distress. Maintaining O2 saturations up to 99% on 3 L/m per nasal cannula. He's been afebrile. Hemodynamically stable. He is status post 2 units of packed red blood cells this admission. Current hemoglobin 8.6. White count 7.3. White count 119,000. INR 1.3. Sodium 139. Potassium 4.5. BUN 55. Creatinine 5.67. AST 362. ALT 651. Remains on Protonix. EGD today reveals mild gastritis. Biopsies of the duodenum and an trum of the body. Failed/aborted colonoscopy secondary to poor prep. The patient is seen today 07/25/2020 in follow-up on the selective care unit. He is currently resting comfortably in bed. He is receiving hemodialysis today. He is down to 2 L/m per nasal cannula for oxygen and maintaining saturations in the 90s. He's been afebrile. No further bleeding detected. White count 8.5. Hemoglobin 8.6. Platelet count 111,000. Sodium 137. Potassium 5.3. Creatinine 7.28. AST 222. ALT 555. Objective - Vital Signs Vital signs: Vital Signs Temp 97.9 F 07/25/20 12:48 Pulse 18 L 07/25/20 12:48 Resp 20 07/25/20 12:00 BP 154/62 07/25/20 12:48 Pulse Ox 95 07/25/20 12:00 Intake & Output 07/24/20 07/25/20 07/25/20 18:59 06:59 18:59 Intake Total 100 Output Total 6600 1999 Balance -6499 -1999 Weight 75 kg Intake: IV 100 Output: Stool 6600 Hemodialysis 1999 Other: Voiding Method Bedpan Bedpan Bedpan Urinal Urinal Urinal # Voids 1 1 # Bowel Movements 1 - Exam GENERAL EXAM: Alert, very pleasant, 80-year-old white male, on 3 L of oxygen and the pulse ox 95% comfortable in no apparent distress. HEAD: Normocephalic/atraumatic. EYES: Normal reaction of pupils, equal size. Conjunctiva pink, sclera white. NOSE: Clear with pink turbinates. THROAT: No erythema or exudates. NECK: No masses, no JVD, no thyroid enlargement, no adenopathy. CHEST: No chest wall deformity. Symmetrical expansion. LUNGS: Equal air entry with coarse crackles in the bilateral posterior bases. CVS: Irregular rate and rhythm, normal S1 and S2, no gallops, no murmurs, no rubs ABDOMEN: Soft, nontender. No hepatosplenomegaly, normal bowel sounds, no guarding or rigidity. EXTREMITIES: No clubbing, no edema, no cyanosis, 2+ pulses and upper and lower extremities. MUSCULOSKELETAL: Muscle strength and tone normal. SPINE: No scoliosis or deformity SKIN: No rashes CENTRAL NERVOUS SYSTEM: No focal deficits, tone is normal in all 4 extremities. PSYCHIATRIC: Alert and oriented -3. Appropriate affect. Intact judgment and insight. - Labs CBC & Chem 7: 07/25/20 06:34 07/25/20 06:34 Labs: Abnormal Lab Results - Last 24 Hours (Table) 07/21/20 07/25/20 07/25/20 Range/Units 21:12 06:34 06:34 RBC 2.82 L (4.30-5.90) m/uL Hgb 8.6 L (13.0-17.5) gm/dL Hct 27.8 L (39.0-53.0) % MCHC 30.8 L (31.0-37.0) g/dL RDW 17.4 H (11.5-15.5) % Plt Count 111 L (150-450) k/uL Potassium 5.3 H (3.5-5.1) mmol/L Carbon Dioxide 21 L (22-30) mmol/L BUN 68 H (9-20) mg/dL Creatinine 7.28 H* (0.66-1.25) mg/dL Calcium 7.7 L (8.4-10.2) mg/dL Phosphorus 4.6 H (2.5-4.5) mg/dL AST 222 H (17-59) U/L ALT 555 H (4-49) U/L Total Protein 5.5 L (6.3-8.2) g/dL Albumin 3.3 L (3.5-5.0) g/dL Crossmatch See Detail Assessment and Plan Assessment: 1. Acute GI blood loss anemia requiring blood transfusion, patient presented with hemoglobin of 4.4, transfused with 2 units of packed red blood cells and 2 units of FFP. Current hemoglobin 8.6. 2. Mild coagulopathy related to warfarin therapy, reversed with 2 units of fresh frozen plasma 3. Shortness of breath, weakness, related to acute anemia 4. Chronic anemia 5. End-stage renal disease, on hemodialysis, on Wednesday schedule 6. Hypertension 7. CAD 8. Chronic CHF unspecified 9. Hypertension 10. Hyperlipidemia 11. Previous history of myocardial infarction 12. Chronic A. fib on Coumadin Plan: The patient was seen and evaluated by Dr. Muir Continue the current treatment plan Titrate down the FiO2 as tolerated Will continue to follow I, the cosigning physician, performed a history & physical examination of the patient. Lungs sounds with coarse crackles in the posterior bases. Maintaining good O2 saturations in the 90s on 3 L/m per nasal cannula. I discussed the assessment and plan of care with my nurse practitioner, Eli Bartholomew. I attest to the above note as dictated by her.
[2020-07-25 14:10] VITALS: BMI 25.1
[2020-07-25 14:54] LABS: Anisocytosis Slight; Basophils % (A) 0 %; Eosinophils # (A) 0.1 k/uL (0-0.7); Eosinophils % (A) 2 %; HCT 25.5 % (39.0-53.0); HGB 8.4 gm/dL (13.0-17.5); Lymphocytes % (A) 13 %; MCH 29.7 pg (25.0-35.0); MCHC 32.9 g/dL (31.0-37.0); Mean Platelet Volume 9.8; Monocytes # (A) 0.6 k/uL (0-1.0); Monocytes % (A) 7 %; Neutrophils # (A) 6.4 k/uL (1.3-7.7); Neutrophils % (A) 77 %; Platelet Count 117 k/uL (150-450); RBC 2.84 m/uL (4.30-5.90); RDW 17.8 % (11.5-15.5); WBC 8.2 k/uL (3.8-10.6)
[2020-07-25 14:55] LABS: Albumin 3.3 g/dL (3.5-5.0); Potassium 3.8 mmol/L (3.5-5.1); Total Bilirubin 0.9 mg/dL (0.2-1.3); Total Protein 5.6 g/dL (6.3-8.2)
--- NOTE | 2020-07-25 15:09 | P.PN ---
Subjective Progress Note Date: 07/25/20 Principal diagnosis: Anemia Patient seen lying in bed. No abdominal pain. No signs or symptoms GI bleeding. Hemoglobin is stable. Objective - Vital Signs Vital signs: Vital Signs Temp 97.9 F 07/25/20 12:48 Pulse 18 L 07/25/20 12:48 Resp 20 07/25/20 12:00 BP 154/62 07/25/20 12:48 Pulse Ox 95 07/25/20 12:00 Intake & Output 07/24/20 07/25/20 07/25/20 18:59 06:59 18:59 Intake Total 100 Output Total 6600 1999 Balance -6500 -1999 Weight 75 kg Intake: IV 100 Output: Stool 6600 Hemodialysis 2000 Other: Voiding Method Bedpan Bedpan Bedpan Urinal Urinal Urinal # Voids 1 1 # Bowel Movements 1 - Exam On physical examination, patient appears comfortable in no apparent distress. HEAD: Normocephalic, atraumatic. EYES: No scleral icterus. No conjunctival injection. MOUTH: No lesions, tongue midline. NECK: Trachea midline, no gross abnormalities. ABDOMEN: Soft, nontender. Bowel sounds are positive. No organomegaly. No guarding or rigidity. EXTREMITIES: No pedal edema. SKIN: No rashes, no jaundice. NEUROLOGIC: Alert and oriented x3. No focal deficits. - Labs CBC & Chem 7: 07/25/20 14:15 07/25/20 14:15 Labs: Abnormal Lab Results - Last 24 Hours (Table) 07/21/20 07/25/20 07/25/20 Range/Units 21:12 06:34 06:34 RBC 2.82 L (4.30-5.90) m/uL Hgb 8.6 L (13.0-17.5) gm/dL Hct 27.8 L (39.0-53.0) % MCHC 30.8 L (31.0-37.0) g/dL RDW 17.4 H (11.5-15.5) % Plt Count 111 L (150-450) k/uL Potassium 5.3 H (3.5-5.1) mmol/L Carbon Dioxide 21 L (22-30) mmol/L BUN 68 H (9-20) mg/dL Creatinine 7.28 H* (0.66-1.25) mg/dL Calcium 7.7 L (8.4-10.2) mg/dL Phosphorus 4.6 H (2.5-4.5) mg/dL AST 222 H (17-59) U/L ALT 555 H (4-49) U/L Total Protein 5.5 L (6.3-8.2) g/dL Albumin 3.3 L (3.5-5.0) g/dL Crossmatch See Detail Assessment and Plan (1) Normocytic anemia Narrative/Plan: 80-year-old male with multiple medical comorbidities including atrial fibrillation on anticoagulation therapy, end-stage renal disease and congestive heart failure who presented due to shortness of breath and weakness. Found to be severely anemic with a hemoglobin of 4.4 decreased from baseline hemoglobin, currently status post transfusion hemoglobin is 8.9. Patient denies any signs or symptoms of GI bleeding, stool was positive for occult blood. Prior e ndoscopic evaluation with EGD and colonoscopy in 2014 with findings of gastritis and diverticulosis with polypectomy. Unclear etiology, likely multifactorial in the setting of end-stage renal disease however, given positive stool testing for blood patient was taken for EGD and colonoscopy with only findings of gastritis the colonoscopy could not be completed due to a poor prep with stool seen thr oughout the colon. Extensive discussion with the patient Both after the procedure and then again in his room regarding continuing the prep and completing the colonoscopy the following day, however the patient refused and subsequently ate a regular diet. Hemoglobin has remained stable and plan will be for outpatient follow-up for colonoscopy. Current Visit: Yes Status: Acute Code(s): D64.9 - ANEMIA, UNSPECIFIED SNOMED Code(s): 281799939 (2) Stool guaiac positive Current Visit: Yes Status: Acute Code(s): R19.5 - OTHER FECAL ABNORMALITIES SNOMED Code(s): 09206581 Plan: supportive care Diet as tolerated Continue monitor hemoglobin and hematocrit and transfuse as needed Continue to hold anticoagulation therapy Continue to monitor for signs or symptoms of GI bleeding Continue Protonix therapy Await pathology from biopsies of gastritis and duodenum Nephrology following, with epopoeitin ordered EGD completed, with colonoscopy aborted due to stool throughout the colon as the patient did not complete his prep, she was offered the opportunity to continue the prep and repeat the procedure today however refused, hemoglobin has remained stable and the patient can follow up after discharge for colonoscopy in the outpatient setting Thank you for allowing us to participate in the care of the patient, the GI service will stand by, please call us back with any questions or concerns
[2020-07-25] MEDS: LACTATED RINGERS 1,000 ML IV SCH (19:35)
[2020-07-25 19:55] VITALS: RESP 16
[2020-07-25] MEDS ORDERED: TEMAZEPAM 15 MG CAP PO SCH (21:15)
[2020-07-26 06:24] LABS: INR 1.2 (<1.2)
[2020-07-26 06:33] LABS: Albumin 3.1 g/dL (3.5-5.0); Calcium 8.2 mg/dL (8.4-10.2); Phosphorus 3.8 mg/dL (2.5-4.5); Potassium 4.1 mmol/L (3.5-5.1); Total Bilirubin 0.9 mg/dL (0.2-1.3); Total Protein 5.4 g/dL (6.3-8.2)
[2020-07-26] MEDS: CALCIUM ACETATE 667 MG TAB PO SCH ×2 (06:33→12:41)
[2020-07-26 06:51] LABS: Anisocytosis Slight; HCT 26.7 % (39.0-53.0); MCH 30.3 pg (25.0-35.0); MCHC 33.7 g/dL (31.0-37.0); MCV 90.1 fL (80.0-100.0); Mean Platelet Volume 9.6; Platelet Count 134 k/uL (150-450); RBC 2.96 m/uL (4.30-5.90); RDW 18.3 % (11.5-15.5)
--- NOTE | 2020-07-26 08:02 | P.PN ---
Subjective Progress Note Date: 07/26/20 Principal diagnosis: Severe anemia with associated shortness of breath and generalized weakness 80-year-old male with a history of atrial fibrillation on anticoagulation therapy presented to the emergency room with a low hemoglobin with associated symptoms of shortness of breath and generalized, black tarry stools with diffuse abdominal pain during emergency room stay patient had a hemoglobin of 4 received transfusion packed red blood cells and fresh frozen plasma currently hemoglobin and hematocrit at baseline. patient dependent on 3 L oxygen .patient dialysis patient Wednesday and Wednesday. Hemoglobin and hematocrit stabilized. Gastroenterologyattempted upper and lower GI scopesunable to do colonoscopy due to poor prep. Upper GIsee procedure note from gastroenterology. No episodes of black tarry stools during the last 12 hours. patient denies any complaints at this time Objective - Vital Signs Vital signs: Vital Signs Temp 98.3 F 07/25/20 23:15 Pulse 60 07/26/20 04:00 Resp 16 07/26/20 04:00 BP 124/60 07/26/20 04:00 Pulse Ox 96 07/26/20 04:00 Intake & Output 07/25/20 07/26/20 07/26/20 18:59 06:59 18:59 Intake Total 360 Output Total 1999 150 Balance -1640 -150 Weight 75 kg 75.5 kg Intake: Oral 360 Output: Urine 150 Hemodialysis 1999 Other: Voiding Method Bedpan Urinal # Voids 1 - Constitutional General appearance: Present: mild distress - EENT Eyes: Present: EOMI, PERRLA ENT: Present: hard of hearing Ears: bilateral: normal - Neck Neck: Present: normal ROM Thyroid: bilateral: normal size - Respiratory Respiratory: bilateral: CTA (Anterior lung fish), diminished (Posterior bases) - Cardiovascular Details: Normal sinus rhythm Heart rate: 60 Abnormal Heart Sounds: Present: systolic murmur (Grade 4/6) - Peripheral pulses dorsalis pedis Peripheral Pulses: bilateral: Normal - Gastrointestinal General gastrointestinal: Present: normal bowel sounds - Integumentary Integumentary: Present: pale - Neurologic Neurologic: Present: CNII-XII intact - Musculoskeletal Musculoskeletal: Present: generalized weakness - Psychiatric Psychiatric: Present: A&O x's 3, appropriate affect, intact judgment & insight - Allied health notes Allied health notes reviewed: OT - Labs CBC & Chem 7: 07/26/20 05:55 07/26/20 05:55 Labs: Abnormal Lab Results - Last 24 Hours (Table) 07/21/20 07/25/20 07/25/20 Range/Units 21:12 06:34 06:34 RBC 2.82 L (4.30-5.90) m/uL Hgb 8.6 L (13.0-17.5) gm/dL Hct 27.8 L (39.0-53.0) % MCHC 30.8 L (31.0-37.0) g/dL RDW 17.4 H (11.5-15.5) % Plt Count 111 L (150-450) k/uL INR (<1.2) Sodium (137-145) mmol/L Potassium 5.3 H (3.5-5.1) mmol/L Chloride (98-107) mmol/L Carbon Dioxide 21 L (22-30) mmol/L BUN 68 H (9-20) mg/dL Creatinine 7.28 H* (0.66-1.25) mg/dL Glucose (74-99) mg/dL Calcium 7.7 L (8.4-10.2) mg/dL Phosphorus 4.6 H (2.5-4.5) mg/dL AST 222 H (17-59) U/L ALT 555 H (4-49) U/L Total Protein 5.5 L (6.3-8.2) g/dL Albumin 3.3 L (3.5-5.0) g/dL Crossmatch See Detail 07/25/20 07/25/20 07/26/20 Range/Units 14:15 14:15 05:55 RBC 2.84 L 2.96 L (4.30-5.90) m/uL Hgb 8.4 L 9.0 L (13.0-17.5) gm/dL Hct 25.5 L 26.7 L (39.0-53.0) % MCHC (31.0-37.0) g/dL RDW 17.8 H 18.3 H (11.5-15.5) % Plt Count 117 L 134 L (150-450) k/uL INR (<1.2) Sodium 132 L (137-145) mmol/L Potassium (3.5-5.1) mmol/L Chloride 96 L (98-107) mmol/L Carbon Dioxide (22-30) mmol/L BUN 23 H (9-20) mg/dL Creatinine 3.05 H (0.66-1.25) mg/dL Glucose 140 H (74-99) mg/dL Calcium 8.0 L (8.4-10.2) mg/dL Phosphorus (2.5-4.5) mg/dL AST 249 H (17-59) U/L ALT 620 H (4-49) U/L Total Protein 5.6 L (6.3-8.2) g/dL Albumin 3.3 L (3.5-5.0) g/dL Crossmatch 07/26/20 07/26/20 Range/Units 05:55 05:55 RBC (4.30-5.90) m/uL Hgb (13.0-17.5) gm/dL Hct (39.0-53.0) % MCHC (31.0-37.0) g/dL RDW (11.5-15.5) % Plt Count (150-450) k/uL INR 1.2 H (<1.2) Sodium 133 L (137-145) mmol/L Potassium (3.5-5.1) mmol/L Chloride 95 L (98-107) mmol/L Carbon Dioxide 31 H (22-30) mmol/L BUN 33 H (9-20) mg/dL Creatinine 4.51 H (0.66-1.25) mg/dL Glucose 111 H (74-99) mg/dL Calcium 8.2 L (8.4-10.2) mg/dL Phosphorus (2.5-4.5) mg/dL AST 244 H (17-59) U/L ALT 629 H (4-49) U/L Total Protein 5.4 L (6.3-8.2) g/dL Albumin 3.1 L (3.5-5.0) g/dL Crossmatch Assessment and Plan Assessment: Anemia End-stage renal diseasehemodialysis dependent Congestive heart failure chronic systolic dysfunction with ejection fraction of 30-35% Pulmonary hypertension Paroxysmal atrial fibrillationholding anticoagulation therapy Hyperlipidemia Hypertension Coronary artery disease Peripheral vascular disease (1) Anemia Narrative/Plan: Received blood transfusions and emergency roomhemoglobin at baseline 8.8 due to severe renal disease Current Visit: Yes Status: Acute Code(s): D64.9 - ANEMIA, UNSPECIFIED SNOMED Code(s): 318089966 (2) GI bleed Narrative/Plan: Gastroenterology attempted upper and lower GI scopescolonoscopy unsuccessful due to poor prep-will follow-up with GI in 2-3 weeks for colonoscopy Current Visit: Yes Status: Acute Code(s): K92.2 - GASTROINTESTINAL HEMORRHAGE, UNSPECIFIED SNOMED Code(s): 03198335 (3) Stool guaiac positive Narrative/Plan: Hemoglobin and Hematocrit remained at baseline Current Visit: Yes Status: Acute Code(s): R19.5 - OTHER FECAL ABNORMALITIES SNOMED Code(s): 33075055 Plan: Severe anemia-successful upper GI revealed gastritis, successful colonoscopy due to poor prep for follow-up with GI in 2-3 weeks for colonoscopy. Hemoglobin and hematocrit are at baseline due to severe renal disease. End-stage renal disease-hemodialysis dependent Wednesdaycontinue consultation with nephrology Continue consultation with pulmonary critical carecleared from their perspective Gastroenterology consultation recommendationhold anticoagulation therapy, will follow up with colonoscopy in 2-3 weeks. Continue consultation with cardiologyfor recommendations of anticoagulation therapy Continue medical management Hopeful discharge todaywith home care. Had an extensive conversation with patient regarding recommendations for rehab patient refused. Patient will go home with home care and supportive care from daughter and family. Patient understands the risk and benefits of rehab versus home care and and decision is to go with home care. Time with Patient: Greater than 30
[2020-07-26] MEDS: FOLIC ACID-VIT B COMPLEX-VIT C 1 CAP PO SCH (08:57)
[2020-07-26] MEDS: NICOTINE 14MG/24HR PATCH TRANSDERM SCH (08:57)
[2020-07-26] MEDS: ATORVASTATIN 40 MG TAB PO SCH (08:57)
[2020-07-26] MEDS: PANTOPRAZOLE 40 MG/10 ML VIAL IVP SCH (08:57)
[2020-07-26] MEDS: METOPROLOL TARTRATE 50 MG TAB PO SCH (08:57)
[2020-07-26 11:08] VITALS: TEMP 98
--- NOTE | 2020-07-26 12:03 | P.PN ---
Subjective Progress Note Date: 07/26/20 This is a pleasant 80-year-old gentleman with documented history of coronary artery disease with prior RCA stenting in 2007, ischemic cardiomyopathy, valvular heart disease, chronic kidney disease on hemodialysis, hypertension, hyperlipidemia, chronic nicotine dependence, paroxysmal atrial fibrillation for which the patient was recently started on Coumadin. Patient presented to the hospital on this occasion with symptoms of lethargy and shortness of breath. He also was very fatigued. On EMS arrival, it was noted that his oxygen was significantly low and the patient was placed on a BiPAP. Patient was also noted to have elevated blood pressure and was given sublingual nitroglycerin. He denies any chest discomfort. The patient denies having any fever or chills, no blood in the stool or dark stool. His hemoglobin on arrival here was 4.4, status post blood transfusions, hemoglobin this morning is 8.8. The patient has been seen by GI service and is scheduled today to undergo an EGD and colonoscopy. Laboratory data, white blood cell count 12.5, hemoglobin this morning 8.8, platelet count 139. The patient's INR at admission was 3.0, 1.4 yesterday, no INR today yet. PH greater than 7.7 pCO2 18, pO2 132, HCO3 23, total CO2 23. Sodium 138, potassium 6.0, BUN 108, creatinine 8.3. The patient's lactic acid on admission was 3.4, 1.8 this morning. Magnesium 2.1. AST 138 ALT 66. Cardiology consultation was requested, regarding anticoagulation. Patient was seen and examined this morning, states overall he's feeling a little bit stronger. Scheduled today to undergo his EGD and colonoscopy. 07/25/2020 Patient was seen and examined this morning, currently undergoing dialysis. He underwent an EGD yesterday which revealed mild gastritis, they were unable to complete colonoscopy which is now scheduled for this afternoon. Blood pressure 148/60 with a heart rate in the 60s, 1% on 3 L of oxygen. White blood cell count 8.5, hemoglobin 8.6, platelet count 111. Sodium 137, potassium 5.3, BUN 68, creatinine 7.2. AST 222, ALT 555. 07/26/2020 Patient seen and examined this morning, blood pressure 120/60 with a heart rate in the 60s, 91% on 2 L of oxygen. White blood cell count 9.0, hemoglobin 9.0, platelet count 134, sodium 133, potassium 4.1, BUN 33, creatinine 4.5. Objective - Vital Signs Vital signs: Vital Signs Temp 98.0 F 07/26/20 08:00 Pulse 59 L 07/26/20 08:00 Resp 16 07/26/20 04:00 BP 121/58 07/26/20 08:00 Pulse Ox 91 L 07/26/20 08:00 Intake & Output 07/25/20 07/26/20 07/26/20 18:59 06:59 18:59 Intake Total 360 120 Output Total 1999 150 Balance -1640 -150 120 Weight 75 kg 75.5 kg Intake: Oral 360 120 Output: Urine 150 Hemodialysis 2000 Other: Voiding Method Bedpan Bedpan Urinal Urinal # Voids 1 1 - Exam PHYSICAL EXAMINATION: GENERAL: 80-year-old gentleman in no acute distress at the time of my examination HEENT: Head is atraumatic, normocephalic. Pupils equal, round. Sclera anicteric. Conjunctiva are clear. Mucous membranes of the mouth are moist. Neck is supple. There is no elevated jugular venous pressure. No carotid bruit is heard. HEART EXAMINATION: Heart S1, S2 normal. No murmur or gallop heard. CHEST EXAMINATION: Lungs reveal scattered rhonchi throughout. ABDOMEN: Soft, nontender. Bowel sounds are heard. No organomegaly noted. EXTREMITIES: 2+ peripheral pulses with no evidence of peripheral edema and no calf tenderness noted. NEUROLOGIC patient is awake, alert and oriented 3 . - Labs CBC & Chem 7: 07/26/20 05:55 07/26/20 05:55 Labs: Abnormal Lab Results - Last 24 Hours (Table) 07/25/20 07/25/20 07/26/20 Range/Units 14:15 14:15 05:55 RBC 2.84 L 2.96 L (4.30-5.90) m/uL Hgb 8.4 L 9.0 L (13.0-17.5) gm/dL Hct 25.5 L 26.7 L (39.0-53.0) % RDW 17.8 H 18.3 H (11.5-15.5) % Plt Count 117 L 134 L (150-450) k/uL INR (<1.2) Sodium 132 L (137-145) mmol/L Chloride 96 L (98-107) mmol/L Carbon Dioxide (22-30) mmol/L BUN 23 H (9-20) mg/dL Creatinine 3.05 H (0.66-1.25) mg/dL Glucose 140 H (74-99) mg/dL Calcium 8.0 L (8.4-10.2) mg/dL AST 249 H (17-59) U/L ALT 620 H (4-49) U/L Total Protein 5.6 L (6.3-8.2) g/dL Albumin 3.3 L (3.5-5.0) g/dL 07/26/20 07/26/20 Range/Units 05:55 05:55 RBC (4.30-5.90) m/uL Hgb (13.0-17.5) gm/dL Hct (39.0-53.0) % RDW (11.5-15.5) % Plt Count (150-450) k/uL INR 1.2 H (<1.2) Sodium 133 L (137-145) mmol/L Chloride 95 L (98-107) mmol/L Carbon Dioxide 31 H (22-30) mmol/L BUN 33 H (9-20) mg/dL Creatinine 4.51 H (0.66-1.25) mg/dL Glucose 111 H (74-99) mg/dL Calcium 8.2 L (8.4-10.2) mg/dL AST 244 H (17-59) U/L ALT 629 H (4-49) U/L Total Protein 5.4 L (6.3-8.2) g/dL Albumin 3.1 L (3.5-5.0) g/dL Assessment and Plan Plan: Assessment and plan #1 acute blood loss anemia requiring blood transfusion, hemoglobin 4.4 on admission, status post 2 units of packed red blood cells and 2 units of FFP, hemoglobin this morning is 8.8. #2 paroxysmal atrial fibrillation, patient was on Coumadin at home for anticoagulation, INR 3.0 on admission. #3 end-stage renal disease on hemodialysis #4 hypertension #5 coronary artery disease with prior LAD stenting in 2007 #6 ischemic cardiomyopathy with documented ejection fraction of 35-40% #7 chronic congestive heart failure, systolic #8 hypertension #9 hyperlipidemia Plan Colonoscopy has now been deferred until outpatient, therefore anticoagulation at present will be held. Patient may be discharged from our perspective, we'll follow-up in the office post discharge. DNP note has been reviewed, I agree with a documented findings and plan of care. Patient was seen and examined.
[2020-07-26 12:09] LABS: Eosinophils # (M) 0.18 k/uL (0-0.7); Metamyelocytes # (M) 0.09 k/uL (0); Metamyelocytes % 1 %; Monocytes # (M) 0.27 k/uL (0-1.0); Myelocytes # (M) 0.18 k/uL (0); Myelocytes % 2 %; Neutrophils # (M) 7.56 k/uL (1.3-7.7); Neutrophils % (M) 84 %; Nucleated Red Blood Cells 0 /100 WBC (0-0); Total Cells Counted 200
[2020-07-26 12:10] LABS: Poikilocytosis (M) Present; Polychromasia Present; Toxic Granulation Present
--- NOTE | 2020-07-26 12:25 | PN ---
PROGRESS NOTE The patient is seen for followup for end-stage renal disease. He is currently seen for followup for end-stage renal disease. The patient is maintained on a Wednesday, , Wednesday schedule for dialysis. He was admitted with severe anemia with hemoglobin of around 4 g/dL. No active bleeding has been noted post admission. The patient did have an EGD which did not show any source of active bleeding. A colonoscopy was not done as the patient had poor prep. PHYSICAL EXAMINATION: On examination today, blood pressure is 121/58, heart rate 59 per minute, he is afebrile. Examination of the heart S1, S2. Examination of the lungs, bilateral breath sounds are heard. Abdomen is soft, nontender. Examination of lower extremities shows no significant edema. PROMOTIONS ASSISTANT exam is grossly intact. LAB: Show sodium 133, potassium 4.1, chloride 95, hemoglobin of 9.0 g/dL. ASSESSMENT: 1. End-stage renal disease, on hemodialysis on a Wednesday, , Wednesday schedule. The patient will be dialyzed tomorrow mostly as outpatient if he is discharged today. 2. Acute blood loss anemia with no active bleeding noted post discharge. The patient has been transfused packed RBCs. EGD was negative. Colonoscopy was attempted but not completed due to poor prep. Patient, however, is refusing repeat colonoscopy for now. 3. CKD mineral bone disorder. 4. Anemia of chronic disease, maintained on Aranesp. PLAN: Hemodialysis in a.m. If patient is discharged, he can be dialyzed as outpatient. MMODL / IJN: [id number] /
--- NOTE | 2020-07-26 14:42 | P.PN ---
Subjective Progress Note Date: 07/26/20 Principal diagnosis: GI bleed The patient is seen today 07/24/2020 in follow-up on the selective care unit. He remains awake and alert in no acute distress. Maintaining O2 saturations up to 99% on 3 L/m per nasal cannula. He's been afebrile. Hemodynamically stable. He is status post 2 units of packed red blood cells this admission. Current hemoglobin 8.6. White count 7.3. White count 119,000. INR 1.3. Sodium 139. Potassium 4.5. BUN 55. Creatinine 5.67. AST 362. ALT 651. Remains on Protonix. EGD today reveals mild gastritis. Biopsies of the duodenum and an trum of the body. Failed/aborted colonoscopy secondary to poor prep. The patient is seen today 07/25/2020 in follow-up on the selective care unit. He is currently resting comfortably in bed. He is receiving hemodialysis today. He is down to 2 L/m per nasal cannula for oxygen and maintaining saturations in the 90s. He's been afebrile. No further bleeding detected. White count 8.5. Hemoglobin 8.6. Platelet count 111,000. Sodium 137. Potassium 5.3. Creatinine 7.28. AST 222. ALT 555. The patient is seen today 07/26/2020 in follow-up on the selective care unit. He is currently awake and alert in no acute distress. Maintaining O2 saturation in the 90s on 2 L/m per nasal cannula. He's been afebrile. Hemodynamically stable. White count 9.0. Hemoglobin 9.0. INR 1.2. Sodium 133. Potassium 4.1. Creatinine 4.51. AST 244. ALT 629. Objective - Vital Signs Vital signs: Vital Signs Temp 98.0 F 07/26/20 08:00 Pulse 59 L 07/26/20 08:00 Resp 16 07/26/20 04:00 BP 121/58 07/26/20 08:00 Pulse Ox 91 L 07/26/20 08:00 Intake & Output 07/25/20 07/26/20 07/26/20 18:59 06:59 18:59 Intake Total 360 210 Output Total 1999 150 200 Balance -1640 -150 10 Weight 75 kg 75.5 kg Intake: Oral 360 210 Output: Urine 150 200 Stool 0 Hemodialysis 2000 Other: Voiding Method Bedpan Bedpan Urinal Urinal # Voids 1 1 - Exam GENERAL EXAM: Alert, very pleasant, 80-year-old white male, on L of oxygen and the pulse ox 91% comfortable in no apparent distress. HEAD: Normocephalic/atraumatic. EYES: Normal reaction of pupils, equal size. Conjunctiva pink, sclera white. NOSE: Clear with pink turbinates. THROAT: No erythema or exudates. NECK: No masses, no JVD, no thyroid enlargement, no adenopathy. CHEST: No chest wall deformity. Symmetrical expansion. LUNGS: Equal air entry with coarse crackles in the bilateral posterior bases. CVS: Irregular rate and rhythm, normal S1 and S2, no gallops, no murmurs, no rubs ABDOMEN: Soft, nontender. No hepatosplenomegaly, normal bowel sounds, no guarding or rigidity. EXTREMITIES: No clubbing, no edema, no cyanosis, 2+ pulses and upper and lower extremities. MUSCULOSKELETAL: Muscle strength and tone normal. SPINE: No scoliosis or deformity SKIN: No rashes CENTRAL NERVOUS SYSTEM: No focal deficits, tone is normal in all 4 extremities. PSYCHIATRIC: Alert and oriented -3. Appropriate affect. Intact judgment and insight. - Labs CBC & Chem 7: 07/26/20 05:55 07/26/20 05:55 Labs: Abnormal Lab Results - Last 24 Hours (Table) 07/25/20 07/25/20 07/26/20 Range/Units 14:15 14:15 05:55 RBC 2.84 L 2.96 L (4.30-5.90) m/uL Hgb 8.4 L 9.0 L (13.0-17.5) gm/dL Hct 25.5 L 26.7 L (39.0-53.0) % RDW 17.8 H 18.3 H (11.5-15.5) % Plt Count 117 L 134 L (150-450) k/uL Lymphocytes # (Manual) 0.90 L (1.0-4.8) k/uL Metamyelocytes # (Man) 0.09 H (0) k/uL Myelocytes # (Manual) 0.18 H (0) k/uL INR (<1.2) Sodium 132 L (137-145) mmol/L Chloride 96 L (98-107) mmol/L Carbon Dioxide (22-30) mmol/L BUN 23 H (9-20) mg/dL Creatinine 3.05 H (0.66-1.25) mg/dL Glucose 140 H (74-99) mg/dL Calcium 8.0 L (8.4-10.2) mg/dL AST 249 H (17-59) U/L ALT 620 H (4-49) U/L Total Protein 5.6 L (6.3-8.2) g/dL Albumin 3.3 L (3.5-5.0) g/dL 07/26/20 07/26/20 Range/Units 05:55 05:55 RBC (4.30-5.90) m/uL Hgb (13.0-17.5) gm/dL Hct (39.0-53.0) % RDW (11.5-15.5) % Plt Count (150-450) k/uL Lymphocytes # (Manual) (1.0-4.8) k/uL Metamyelocytes # (Man) (0) k/uL Myelocytes # (Manual) (0) k/uL INR 1.2 H (<1.2) Sodium 133 L (137-145) mmol/L Chloride 95 L (98-107) mmol/L Carbon Dioxide 31 H (22-30) mmol/L BUN 33 H (9-20) mg/dL Creatinine 4.51 H (0.66-1.25) mg/dL Glucose 111 H (74-99) mg/dL Calcium 8.2 L (8.4-10.2) mg/dL AST 244 H (17-59) U/L ALT 629 H (4-49) U/L Total Protein 5.4 L (6.3-8.2) g/dL Albumin 3.1 L (3.5-5.0) g/dL Assessment and Plan Assessment: 1. Acute GI blood loss anemia requiring blood transfusion, patient presented with hemoglobin of 4.4, transfused with 2 units of packed red blood cells and 2 units of FFP. Current hemoglobin 9.0. 2. Mild coagulopathy related to warfarin therapy, reversed with 2 units of fresh frozen plasma. Current INR 1.2 3. Shortness of breath, weakness, related to acute anemia 4. Chronic anemia 5. End-stage renal disease, on hemodialysis, on Wednesday schedule 6. Hypertension 7. CAD 8. Chronic CHF unspecified 9. Hypertension 10. Hyperlipidemia 11. Previous history of myocardial infarction 12. Chronic A. fib on Coumadin Plan: The patient was seen and evaluated by Dr. Wood Thompson from the pulmonary standpoint We will see as needed I, the cosigning physician, performed a history & physical examination of the patient. Lungs sounds with coarse crackles in the posterior bases. Maintaining good O2 saturations in the 90s on 2 L/m per nasal cannula. I discussed the assessment and plan of care with my nurse practitioner, Eli Bartholomew. I attest to the above note as dictated by her.
[2020-07-26 15:14] VITALS: BP 114/56; PULSE 60
[2020-07-26] MEDS: LACTATED RINGERS 1,000 ML IV SCH (15:14)
--- NOTE | 2020-07-26 17:13 | P.DS ---
Providers Date of admission: 07/21/20 22:30 Expected date of discharge: 07/26/20 Attending physician: Edward Bowen Consults: 07/21/20 22:02 Consult Physician Routine Consulting Provider: Michelle Parrish Consult Reason/Comments: GI bleed Do you want consulting provider notified?: Already Contacted 07/22/20 10:36 Consult Physician Routine Consulting Provider: Ifrah Gonzalez Consult Reason/Comments: ESRD Do you want consulting provider notified?: Yes 07/24/20 08:38 Consult Physician Urgent Consulting Provider: Ranjan Hopkins Consult Reason/Comments: a-fib/ anticoagulant therapy Do you want consulting provider notified?: Yes Primary care physician: Edward Bowen - Discharge Diagnosis(es) (1) Anemia Acute on chronic anemia due to possible GI bleedupper GI scope successfulsee procedure notes from gastroenterology.patient received 2 units of packed red blood cells in the emergency department and 2 units of fresh frozen plasma for hemoglobin of 4.4. Upon discharge hemoglobin was 9.0 patient to follow-up for colonoscopy in 2 weeks with gastroenterology Current Visit: Yes Status: Acute (2) GI bleed Acute GI bleed possibly due to anticoagulation therapy-and emergency department hemoglobin was 4.4 patient was symptomatic received 2 units of packed red blood cells and 2 units of fresh frozen plasma enterology was able to do upper scope revealing gastritis I able to perform colonoscopy due to inadequate prepfollow- up with gastroenterology in 2 weeks for colonoscopy. Current Visit: Yes Status: Acute (3) Stool guaiac positive Last 24 hours no signs of black tarry stools Current Visit: Yes Status: Acute Hospital Course: Patient presents emergency department with complaint of shortness of breath, generalized weakness, and melena and stool. Patient found to have a hemoglobin of 4patient was on anticoagulation therapy Coumadin for paroxysmal atrial fibrillation. he received 2 units of packed red blood cells and 2 units of fresh frozen plasma for reversal of Coumadin and to increase hemoglobin. Patient was admitted with consultation from pulmonary, urology, gastroenterology, and cardiology. Patient underwent upper GI see procedure note from gastroenterology. Patient unable to have colonoscopy done to inadequate prep. Throughout hospital stay patient's hemoglobin remained at baseline. Continue to hold anticoagulation therapy until cleared by gastroenterology after colonoscopy and cardiology for restart patient to receive home care for generalized weakness and multiple comorbidities Assessment: Severe anemiapossibly due to gastrointestinal bleed patient received 2 units of packed red blood cells, and 2 units of fresh frozen plasma in the emergency department for hemoglobin of 4. Patient was on anticoagulation therapy. Anticoagulation therapy reversed emergency department. Hemoglobin and hematocrit stabilized. Patient underwent endoscopic procedure for upper GIsee procedure notes patient unable to obtain colonoscopy due to inadequate prep. Patient to receive colonoscopy outpatient within 2 weeks. 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 Congestive heart failure systolicejection fraction 30-35% Hypertension Pulmonary hypertension Paroxysmal atrial fibrillationholding anticoagulation therapy until cleared by GI Coronary artery disease Peripheral artery disease Health Concerns: Generalized weakness Monitoring for signs and symptoms of bleeding Pertinent Studies: Chest x-ray Procedures: EGD Patient Condition at Discharge: Good Plan - Discharge Summary Discharge Rx Participant: No New Discharge Prescriptions: Continue Atorvastatin Calcium [Lipitor] 40 mg PO DAILY Nicotine 14Mg/24Hr Patch [Habitrol] 1 patch TRANSDERM DAILY #0 patch Metoprolol Tartrate [Lopressor] 50 mg PO BID 30 Days #60 tab Calcium Acetate [PhosLo] 667 mg PO TID-W/MEALS tab lisinopriL [Zestril] 5 mg PO DAILY 30 Days #30 tab Awilda-Fred 0.8mg 0.8 mg PO DAILY #0 Pantoprazole [Protonix] 40 mg PO DAILY Folic Acid-Vit B Complex-Vit C [Nephrocaps] 1 tab PO DAILY Discontinued Warfarin [Coumadin] 5 mg PO DAILY 30 Days #30 tab Lidocaine-Prilocaine Cream [Emla Cream 2.5%/2.5%] 1 applic TOPICAL DAILY PRN PRN Reason: PORT ACCESS Aspirin EC [Ecotrin Low Dose] 81 mg PO DAILY Discharge Medication List Atorvastatin Calcium [Lipitor] 40 mg PO DAILY 07/02/20 [History] Calcium Acetate [PhosLo] 667 mg PO TID-W/MEALS tab 07/04/20 [Rx] Metoprolol Tartrate [Lopressor] 50 mg PO BID 30 Days #60 tab 07/04/20 [Rx] Nicotine 14Mg/24Hr Patch [Habitrol] 1 patch TRANSDERM DAILY #0 patch 07/04/20 [Rx] Awilda-Fred 0.8mg 0.8 mg PO DAILY #0 07/04/20 [Rx] lisinopriL [Zestril] 5 mg PO DAILY 30 Days #30 tab 07/04/20 [Rx] Folic Acid-Vit B Complex-Vit C [Nephrocaps] 1 tab PO DAILY 07/20/20 [History] Pantoprazole [Protonix] 40 mg PO DAILY 07/20/20 [History] Follow up Appointment(s)/Referral(s): Edward Bowen MD [Primary Care Provider] - 07/30/20 1:30 pm [facility], [NON-STAFF] - Tony Paniagua MD [STAFF PHYSICIAN] - 08/12/20 4:00 pm (Keep appointment for stress test on 08/05/20 @ 9:30.) Dario Smith MD [STAFF PHYSICIAN] - 1 Week (Please call and schedule follow up appointment when office reopens on Wednesday.) Patient Instructions/Handouts: *[facility] - (Anesthesia) Endoscopy Discharge Instructions, Gastritis (DC), Gastrointestinal Bleeding (DC) Discharge Disposition: HOME WITH HOME HEALTH SERVICES
== END 2020-07-26 18:18 | disposition home health service (06) | DRG 377 ==
LOC: EC 19:11 → 2SICU 22:30 → 3SCARD 07-22 14:33
PROVIDERS: ADMIT Family Medicine; ATTEND Family Medicine
PROC: 30233K1 Transfusion of Nonautologous Frozen Plasma into Peripheral Vein, Percutaneous Approach (ICD-10-PCS; 2020-07-21)
PROC: 30233N1 Transfusion of Nonautologous Red Blood Cells into Peripheral Vein, Percutaneous Approach (ICD-10-PCS; 2020-07-21)
PROC: 5A09357 Assistance with Respiratory Ventilation, Less than 24 Consecutive Hours, Continuous Positive Airway Pressure (ICD-10-PCS; 2020-07-21)
PROC: 5A1D70Z Performance of Urinary Filtration, Intermittent, Less than 6 Hours Per Day (ICD-10-PCS; 2020-07-23)
PROC: 0DB98ZX Excision of Duodenum, Via Natural or Artificial Opening Endoscopic, Diagnostic (ICD-10-PCS; principal; 2020-07-24 12:00)
PROC: 0DB78ZX Excision of Stomach, Pylorus, Via Natural or Artificial Opening Endoscopic, Diagnostic (ICD-10-PCS; principal; 2020-07-24 12:00)
DX: K92.2 Gastrointestinal hemorrhage, unspecified (principal); N18.6 End stage renal disease; D62 Acute posthemorrhagic anemia; I50.22 Chronic systolic (congestive) heart failure; I13.2 Hypertensive heart and chronic kidney disease with heart failure and with stage 5 chronic kidney disease, or end stage renal disease; E87.3 Alkalosis; D68.32 Hemorrhagic disorder due to extrinsic circulating anticoagulants; I73.9 Peripheral vascular disease, unspecified; R56.9 Unspecified convulsions; I27.20 Pulmonary hypertension, unspecified; I48.0 Paroxysmal atrial fibrillation; Z99.2 Dependence on renal dialysis; Z53.09 Procedure and treatment not carried out because of other contraindication; T45.515A Adverse effect of anticoagulants, initial encounter; I25.5 Ischemic cardiomyopathy; E83.89 Other disorders of mineral metabolism; Z66 Do not resuscitate; I25.119 Atherosclerotic heart disease of native coronary artery with unspecified angina pectoris; E87.5 Hyperkalemia; E78.5 Hyperlipidemia, unspecified; K57.90 Diverticulosis of intestine, part unspecified, without perforation or abscess without bleeding; K29.70 Gastritis, unspecified, without bleeding; D50.0 Iron deficiency anemia secondary to blood loss (chronic); D63.1 Anemia in chronic kidney disease; I25.2 Old myocardial infarction; Z99.81 Dependence on supplemental oxygen; Z95.5 Presence of coronary angioplasty implant and graft; Z96.1 Presence of intraocular lens; Z98.42 Cataract extraction status, left eye; Z98.41 Cataract extraction status, right eye; Z79.899 Other long term (current) drug therapy; Z79.82 Long term (current) use of aspirin; Z79.01 Long term (current) use of anticoagulants; Z87.19 Personal history of other diseases of the digestive system; Z87.891 Personal history of nicotine dependence; Z86.010 Personal history of colon polyps; Z82.49 Family history of ischemic heart disease and other diseases of the circulatory system; Z82.3 Family history of stroke; Z87.01 Personal history of pneumonia (recurrent); Z98.890 Other specified postprocedural states
CPT/HCPCS: 36415; 36430; 36600; 43239; 45378; 71045; 80048; 80053; 82272; 82607; 82728; 82746; 82805; 83540; 83550; 83605; 83735; 84100; 84484; 85025; 85027; 85045; 85610; 85730; 86850; 86900; 86901; 86920; 88305; 90935; 93005; 94660; 96361; 96365; 96375; 99291

== ENCOUNTER 2021-03-04 11:00 | Emergency (ER) | payer MEDICARE ==
[2021-03-04 11:52] LABS: Basophils # (A) 0.1 k/uL (0-0.2); Basophils % (A) 1 %; Eosinophils # (A) 0.5 k/uL (0-0.7); Eosinophils % (A) 4 %; HCT 34.8 % (39.0-53.0); Lymphocytes # (A) 1.7 k/uL (1.0-4.8); Lymphocytes % (A) 17 %; MCH 31.8 pg (25.0-35.0); MCHC 34.6 g/dL (31.0-37.0); MCV 92.1 fL (80.0-100.0); Mean Platelet Volume 9.1; Monocytes # (A) 0.7 k/uL (0-1.0); Monocytes % (A) 7 %; Neutrophils # (A) 7.3 k/uL (1.3-7.7); Neutrophils % (A) 71 %; Platelet Count 199 k/uL (150-450); RBC 3.79 m/uL (4.30-5.90); RDW 14.1 % (11.5-15.5); WBC 10.3 k/uL (3.8-10.6)
[2021-03-04 12:11] LABS: Albumin 4.4 g/dL (3.5-5.0); Calcium 8.2 mg/dL (8.4-10.2); Potassium 4.6 mmol/L (3.5-5.1); Total Bilirubin 0.4 mg/dL (0.2-1.3); Total Protein 6.6 g/dL (6.3-8.2)
--- NOTE | 2021-03-04 12:13 | ED ---
General Adult HPI - General Chief complaint: Abdominal Pain Stated complaint: pain in side during dialysis Time Seen by Provider: 03/04/21 11:14 Source: patient, family Mode of arrival: ambulatory Limitations: no limitations - History of Present Illness Initial comments: Patient is an 80-year-old male that presents to the emergency department complaining of right-sided rib pain just below his arm pit. She notes that the pain comes and goes. He notes the quality the pain is sharp but only lasts a few seconds and then dissipates. He notes that his pain while resting in bed during the exam interview was approximately 3 out of 10. He denied falling or any injury to the area. He denied anything making the pain worse it is comes and goes on its own and then leads. He was in no apparent distress or pain while sitting up during the exam interview. She did note that he did have point tenderness over on to ribs he denied any other chest pain or radiating chest pain shortness of breath headache nausea vomiting diarrhea constipation fever fatigue chills. - Related Data Home Medications Medication Instructions Recorded Confirmed Atorvastatin Calcium [Lipitor] 40 mg PO DAILY 07/02/20 10/04/20 Pantoprazole [Protonix] 40 mg PO QAM 07/20/20 10/04/20 Fluticasone/Umeclidin/Vilanter 1 puff INHALATION QAM 10/04/20 10/04/20 [Trelegy Ellipta 100-62.5-25] Vit C/E/Zn/Coppr/Lutein/Zeaxan 1 cap PO DAILY 10/04/20 10/04/20 [Preservision Areds 2 Softgel] lisinopriL [Zestril] 5 mg PO QAM 10/04/20 10/04/20 Previous Rx's Medication Instructions Recorded Calcium Acetate [PhosLo] 667 mg PO TID-W/MEALS tab 07/04/20 Metoprolol Tartrate [Lopressor] 50 mg PO BID 30 Days #60 tab 07/04/20 Nicotine 14Mg/24Hr Patch [Habitrol] 1 patch TRANSDERM DAILY #0 patch 07/04/20 Awilda-Fred 0.8mg 0.8 mg PO DAILY #0 07/04/20 Allergies Allergy/AdvReac Type Severity Reaction Status Date / Time No Known Allergies Allergy Verified 03/04/21 11:07 Review of Systems ROS Statement: Those systems with pertinent positive or pertinent negative responses have been documented in the HPI. ROS Other: All systems not noted in ROS Statement are negative. Past Medical History Past Medical History: Atrial Fibrillation, Coronary Artery Disease (CAD), Chest Pain / Angina, Heart Failure, GI Bleed, Hyperlipidemia, Hypertension, Myocardial Infarction ([place]), Pneumonia, Renal Disease, Vascular Disorder Additional Past Medical History / Comment(s): 10/04/20 US TO CHECK FOR PATENCY OF DIALYSIS SHUNT. JUL 2020 ADMITTED FOR ANEMIA. ESRD with dialysis FOR MANY YEARS (, , ). 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 Iron deficiency anemia, Mineral bone disease, diverticulosis, colon polyp (removed), PVD , neck fx as a young person with seizures following last one years ago. Last Myocardial Infarction Date:: 2013 History of Any Multi-Drug Resistant Organisms: None Reported Past Surgical History: Heart Catheterization With Stent Additional Past Surgical History / Comment(s): 07/24/20 EGD. Bilateral cataract removal with lens implants, shunt L arm. Past Anesthesia/Blood Transfusion Reactions: No Reported Reaction Date of Last Stent Placement:: 2007 Past Psychological History: No Psychological Hx Reported, Anxiety Smoking Status: Current every day smoker, Light tobacco smoker Past Alcohol Use History: None Reported Past Drug Use History: None Reported - Past Family History Father Family Medical History: Myocardial Infarction ([place]), Musculoskeletal Disorder Additional Family Medical History / Comment(s): Father at age 59 of a [place] Mother Family Medical History: CVA/TIA Additional Family Medical History / Comment(s): Mother of a brain hemorrage. General Exam Limitations: no limitations General appearance: alert, in no apparent distress, other (Point tenderness over several ribs just inferior the right armpit to palpation.) Head exam: Present: atraumatic, normocephalic, normal inspection Eye exam: Present: normal appearance, PERRL, EOMI. Absent: scleral icterus, conjunctival injection, periorbital swelling Neck exam: Present: normal inspection Respiratory exam: Present: normal lung sounds bilaterally. Absent: respiratory distress, wheezes, rales, rhonchi, stridor Cardiovascular Exam: Present: regular rate, normal rhythm, normal heart sounds. Absent: systolic murmur, diastolic murmur, rubs, gallop, clicks GI/Abdominal exam: Present: soft, normal bowel sounds. Absent: distended, tenderness, guarding, rebound, rigid Extremities exam: Present: normal inspection, full ROM, normal capillary refill. Absent: tenderness, pedal edema, joint swelling, calf tenderness Neurological exam: Present: alert, oriented X3 Psychiatric exam: Present: normal affect, normal mood Skin exam: Present: warm, dry, intact, normal color. Absent: rash Course Vital Signs 03/04/21 11:07 Temperature 97.4 F L Pulse Rate 64 Respiratory 16 Rate Blood Pressure 174/76 O2 Sat by Pulse 95 Oximetry Medical Decision Making - Medical Decision Making 80-year-old male complaining of right-sided rib pain. Labs, chest x-ray ordered. Patient declined the need for any pain medication at this time as it was tolerable. Labs unremarkable to baseline given patient prescription dialysis today. Case discussed with Dr. Walker, patient can discharge home and go to dialysis. - Lab Data Result diagrams: 03/04/21 11:39 03/04/21 11:39 Lab Results 03/04/21 03/04/21 Range/Units 11:39 11:39 WBC 10.3 (3.8-10.6) k/uL RBC 3.79 L (4.30-5.90) m/uL Hgb 12.0 L (13.0-17.5) gm/dL Hct 34.8 L (39.0-53.0) % MCV 92.1 (80.0-100.0) fL MCH 31.8 (25.0-35.0) pg MCHC 34.6 (31.0-37.0) g/dL RDW 14.1 (11.5-15.5) % Plt Count 199 (150-450) k/uL MPV 9.1 Neutrophils % 71 % Lymphocytes % 17 % Monocytes % 7 % Eosinophils % 4 % Basophils % 1 % Neutrophils # 7.3 (1.3-7.7) k/uL Lymphocytes # 1.7 (1.0-4.8) k/uL Monocytes # 0.7 (0-1.0) k/uL Eosinophils # 0.5 (0-0.7) k/uL Basophils # 0.1 (0-0.2) k/uL Sodium 141 (137-145) mmol/L Potassium 4.6 (3.5-5.1) mmol/L Chloride 99 (98-107) mmol/L Carbon Dioxide 28 (22-30) mmol/L Anion Gap 14 mmol/L BUN 61 H (9-20) mg/dL Creatinine 8.18 H* (0.66-1.25) mg/dL Est GFR (CKD-EPI)AfAm 6 (>60 ml/min/1.73 sqM) Est GFR (CKD-EPI)NonAf 6 (>60 ml/min/1.73 sqM) Glucose 97 (74-99) mg/dL Calcium 8.2 L (8.4-10.2) mg/dL Total Bilirubin 0.4 (0.2-1.3) mg/dL AST 15 L (17-59) U/L ALT 10 (4-49) U/L Alkaline Phosphatase 76 (38-126) U/L Total Protein 6.6 (6.3-8.2) g/dL Albumin 4.4 (3.5-5.0) g/dL Amylase 171 H (30-110) U/L Lipase 212 (23-300) U/L - Radiology Data Radiology results: report reviewed, image reviewed Chest x-ray: No evidence for acute pulmonary disease. Disposition Clinical Impression: Costochondritis Disposition: HOME SELF-CARE Condition: Stable Instructions (If sedation given, give patient instructions): Costochondritis (ED) Additional Instructions: Please return to the Emergency Department if symptoms worsen or any other concerns. Follow-up with primary care and go to dialysis. Take Tylenol as needed for pain control. Is patient prescribed a controlled substance at d/c from ED?: No Referrals: Edward Bowen MD [Primary Care Provider] - 1-2 days Time of Disposition: 13:02
--- NOTE | 2021-03-04 12:15 | XR ---
EXAMINATION TYPE: XR chest 2V DATE OF EXAM: 03/04/2021 COMPARISON: 07/21/2020 HISTORY: Shortness of breath TECHNIQUE: Frontal and lateral views of the chest are obtained. FINDINGS: Scattered senescent parenchymal changes noted. Hyperinflation compatible with COPD. No evidence for infiltrate. No evidence for atelectasis. Heart size is stable. Mediastinal structures are stable and grossly unremarkable. No evidence for hilar prominence. Degenerative changes dorsal spine. IMPRESSION: 1. No evidence for acute pulmonary disease.
[2021-03-04 13:34] VITALS: BP 166/70; PULSE 68; RESP 18; TEMP 97.6
== END 2021-03-04 13:35 | disposition home or self-care (01) ==
LOC: EC 11:00
DX: M94.0 Chondrocostal junction syndrome [Tietze] (principal); I13.2 Hypertensive heart and chronic kidney disease with heart failure and with stage 5 chronic kidney disease, or end stage renal disease; I50.9 Heart failure, unspecified; N18.6 End stage renal disease; E78.5 Hyperlipidemia, unspecified; I25.2 Old myocardial infarction; I25.10 Atherosclerotic heart disease of native coronary artery without angina pectoris; F17.200 Nicotine dependence, unspecified, uncomplicated; Z79.51 Long term (current) use of inhaled steroids; Z99.2 Dependence on renal dialysis
CPT/HCPCS: 71046; 80053; 82150; 83690; 85025; 99283

== ENCOUNTER 2021-05-14 19:37 | Inpatient (IN) | payer MEDICARE ==
[2021-05-14 20:40] LABS: Basophils # (A) 0.1 k/uL (0-0.2); Basophils % (A) 1 %; Eosinophils # (A) 0.2 k/uL (0-0.7); Eosinophils % (A) 2 %; HCT 29.6 % (39.0-53.0); HGB 10.4 gm/dL (13.0-17.5); Hypochromasia Slight; Lymphocytes % (A) 8 %; MCH 34.9 pg (25.0-35.0); MCHC 35.3 g/dL (31.0-37.0); MCV 98.9 fL (80.0-100.0); Macrocytosis Slight; Mean Platelet Volume 9.9; Monocytes # (A) 0.9 k/uL (0-1.0); Monocytes % (A) 7 %; Neutrophils # (A) 10.3 k/uL (1.3-7.7); Neutrophils % (A) 81 %; Platelet Count 206 k/uL (150-450); Poikilocytosis Slight; RBC 2.99 m/uL (4.30-5.90); RDW 14.1 % (11.5-15.5); WBC 12.8 k/uL (3.8-10.6)
[2021-05-14 20:48] LABS: INR 1.1 (<1.2); Partial Thromboplastin Time 23.4 sec (22.0-30.0); Prothrombin Time 11.4 sec (9.0-12.0)
[2021-05-14 20:54] LABS: ALT 11 U/L (4-49); AST 19 U/L (17-59); African American GFR (CKD) 5 (>60 ml/min/1.73 sqM); Albumin 4.1 g/dL (3.5-5.0); Alkaline Phosphatase 78 U/L (38-126); Anion Gap 19 mmol/L; Blood Urea Nitrogen 71 mg/dL (9-20); Carbon Dioxide 23 mmol/L (22-30); Chloride 98 mmol/L (98-107); Creatine Kinase <20 U/L (55-170); Glucose 118 mg/dL (74-99); Lipase 94 U/L (23-300); Magnesium 2.4 mg/dL (1.6-2.3); Non-African American GFR(CKD) 4 (>60 ml/min/1.73 sqM); Potassium 5.1 mmol/L (3.5-5.1); Sodium 140 mmol/L (137-145); Total Bilirubin 0.4 mg/dL (0.2-1.3); Total Protein 6.5 g/dL (6.3-8.2)
--- NOTE | 2021-05-14 20:59 | XR ---
EXAMINATION TYPE: XR chest 2V DATE OF EXAM: 05/14/2021 COMPARISON: NONE HISTORY: Chest pain TECHNIQUE: 2 views FINDINGS: There is no heart failure nor confluent pneumonic infiltrate. Costophrenic angles are fairl y clear. There is some coarsening of the interstitial markings. IMPRESSION: Mild increased pulmonary interstitial density compared to old exam. No pulmonary consolid ation or heart failure. This could be mild interstitial pneumonia.
--- NOTE | 2021-05-14 21:04 | ED ---
Chest Pain HPI - General Chief Complaint: Chest Pain Stated Complaint: Chest Pain Time Seen by Provider: 05/14/21 19:39 Source: patient, family, RN notes reviewed, old records reviewed Mode of arrival: wheelchair Limitations: no limitations - History of Present Illness Initial Comments: 81-year-old male with a history of heart disease history of chronic renal failure who presents with complaints of 3 days of intermittent chest pain some shortness of breath also nausea vomiting. He does get dialysis on Saturdays he missed his appointment yesterday due to nausea vomiting. Currently he states he is asymptomatic. MD Complaint: chest pain - Related Data Home Medications Medication Instructions Recorded Confirmed Atorvastatin Calcium [Lipitor] 40 mg PO DAILY 07/02/20 05/14/21 Pantoprazole [Protonix] 40 mg PO QAM 07/20/20 05/14/21 Vit C/E/Zn/Coppr/Lutein/Zeaxan 1 cap PO BID 10/04/20 05/14/21 [Preservision Areds 2 Softgel] lisinopriL [Zestril] 5 mg PO DAILY 10/04/20 05/14/21 Aspirin EC [Ecotrin Low Dose] 81 mg PO DAILY 05/14/21 05/14/21 Lidocaine-Prilocaine Cream [Emla 1 applic TOPICAL DAILY PRN 05/14/21 05/14/21 Cream 2.5%/2.5%] Nephro-Fred 0.8mg 1 tab PO DAILY 05/14/21 05/14/21 Previous Rx's Medication Instructions Recorded Calcium Acetate [PhosLo] 667 mg PO TID-W/MEALS tab 07/04/20 Metoprolol Tartrate [Lopressor] 50 mg PO BID 30 Days #60 tab 07/04/20 Allergies Allergy/AdvReac Type Severity Reaction Status Date / Time No Known Allergies Allergy Verified 05/14/21 19:39 Review of Systems ROS Statement: Those systems with pertinent positive or pertinent negative responses have been documented in the HPI. ROS Other: All systems not noted in ROS Statement are negative. EKG Findings - EKG Results: EKG: interpreted by SAROJ, sinus rhythm (Sinus rhythm with occasional PVCs rate 86. Interval 150 QRS duration 150 QT since QTC 424/507) bundle-branch block pattern) Past Medical History Past Medical History: Atrial Fibrillation, Coronary Artery Disease (CAD), Chest Pain / Angina, Heart Failure, GI Bleed, Hyperlipidemia, Hypertension, Myocardial Infarction ([place]), Pneumonia, Renal Disease, Vascular Disorder Additional Past Medical History / Comment(s): 10/04/20 US TO CHECK FOR PATENCY OF DIALYSIS SHUNT. JUL 2020 ADMITTED FOR ANEMIA. ESRD with dialysis FOR MANY YEARS (, , ). 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 Iron deficiency anemia, Mineral bone disease, diverticulosis, colon polyp (removed), PVD , neck fx as a young person with seizures following last one years ago. Last Myocardial Infarction Date:: 2013 History of Any Multi-Drug Resistant Organisms: None Reported Past Surgical History: Heart Catheterization With Stent Additional Past Surgical History / Comment(s): 07/24/20 EGD. Bilateral cataract removal with lens implants, shunt L arm. Past Anesthesia/Blood Transfusion Reactions: No Reported Reaction Date of Last Stent Placement:: 2007 Past Psychological History: No Psychological Hx Reported, Anxiety Smoking Status: Current every day smoker, Light tobacco smoker Past Alcohol Use History: None Reported Past Drug Use History: None Reported - Past Family History Father Family Medical History: Myocardial Infarction ([place]), Musculoskeletal Disorder Additional Family Medical History / Comment(s): Father at age 59 of a [place] Mother Family Medical History: CVA/TIA Additional Family Medical History / Comment(s): Mother of a brain h emorrage. General Exam - General Exam Comments Initial Comments: This is a well-developed well-nourished awake alert oriented times 3 male Limitations: no limitations General appearance: alert, in no apparent distress Head exam: Present: atraumatic, normocephalic, normal inspection Eye exam: Present: normal appearance, PERRL, EOMI. Absent: scleral icterus, conjunctival injection, periorbital swelling ENT exam: Present: normal exam, mucous membranes moist Neck exam: Present: normal inspection. Absent: tenderness, meningismus, lymphadenopathy Respiratory exam: Present: decreased breath sounds. Absent: respiratory distress, wheezes, rales, rhonchi, stridor Cardiovascular Exam: Present: regular rate, normal rhythm, normal heart sounds. Absent: systolic murmur, diastolic murmur, rubs, gallop, clicks GI/Abdominal exam: Present: soft, normal bowel sounds. Absent: distended, tenderness, guarding, rebound, rigid Extremities exam: Present: normal inspection, full ROM, normal capillary refill. Absent: tenderness, pedal edema, joint swelling, calf tenderness Back exam: Present: normal inspection Neurological exam: Present: alert, oriented X3, CN II-XII intact Psychiatric exam: Present: normal affect, normal mood Skin exam: Present: warm, dry, intact, normal color. Absent: rash Course Vital Signs 05/14/21 05/14/21 19:39 21:03 Temperature 98.2 F Pulse Rate 86 Pulse Rate [ 74 Sitting Pulse Oximetery] Respiratory 20 Rate Blood Pressure 161/68 O2 Sat by Pulse 89 L Oximetry Chest Pain MDM - MDM Imaging reviewed no evidence of acute findings. Patient has been pain-free during his stay in the emergency department he does demonstrate evidence however of elevated troponin with the need for dialysis. Patient will be admitted with consultation by cardiology and nephrology. I did discuss this with him and his family. Case is discussed with Parth Bowen's PA. Disposition Clinical Impression: Chest pain, Elevated troponin, Chronic renal failure syndrome Disposition: ADMITTED IP TO THIS HOSP Condition: Fair Referrals: Edward Bowen MD [Primary Care Provider] - 1-2 days
[2021-05-14] MEDS ORDERED: NITROGLYCERIN SL TABS 0.4 MG TAB SUBLINGUAL PRN (21:41)
--- NOTE | 2021-05-14 21:41 | ED ---
Medical Decision Making - Lab Data Result diagrams: 05/14/21 20:07 05/14/21 20:07 Lab Results 05/14/21 05/14/21 05/14/21 Range/Units 20:07 20:07 20:07 WBC 12.8 H (3.8-10.6) k/uL RBC 2.99 L (4.30-5.90) m/uL Hgb 10.4 L (13.0-17.5) gm/dL Hct 29.6 L (39.0-53.0) % MCV 98.9 (80.0-100.0) fL MCH 34.9 (25.0-35.0) pg MCHC 35.3 (31.0-37.0) g/dL RDW 14.1 (11.5-15.5) % Plt Count 206 (150-450) k/uL MPV 9.9 Neutrophils % 81 % Lymphocytes % 8 % Monocytes % 7 % Eosinophils % 2 % Basophils % 1 % Neutrophils # 10.3 H (1.3-7.7) k/uL Lymphocytes # 1.0 (1.0-4.8) k/uL Monocytes # 0.9 (0-1.0) k/uL Eosinophils # 0.2 (0-0.7) k/uL Basophils # 0.1 (0-0.2) k/uL Hypochromasia Slight Poikilocytosis Slight Macrocytosis Slight PT 11.4 (9.0-12.0) sec INR 1.1 (<1.2) APTT 23.4 (22.0-30.0) sec Sodium 140 (137-145) mmol/L Potassium 5.1 (3.5-5.1) mmol/L Chloride 98 (98-107) mmol/L Carbon Dioxide 23 (22-30) mmol/L Anion Gap 19 mmol/L BUN 71 H (9-20) mg/dL Creatinine 9.82 H* (0.66-1.25) mg/dL Est GFR (CKD-EPI)AfAm 5 (>60 ml/min/1.73 sqM) Est GFR (CKD-EPI)NonAf 4 (>60 ml/min/1.73 sqM) Glucose 118 H (74-99) mg/dL Calcium 9.0 (8.4-10.2) mg/dL Magnesium 2.4 H (1.6-2.3) mg/dL Total Bilirubin 0.4 (0.2-1.3) mg/dL AST 19 (17-59) U/L ALT 11 (4-49) U/L Alkaline Phosphatase 78 (38-126) U/L Creatine Kinase <20 L (55-170) U/L Troponin I (0.000-0.034) ng/mL Total Protein 6.5 (6.3-8.2) g/dL Albumin 4.1 (3.5-5.0) g/dL Lipase 94 (23-300) U/L 05/14/21 Range/Units 20:07 WBC (3.8-10.6) k/uL RBC (4.30-5.90) m/uL Hgb (13.0-17.5) gm/dL Hct (39.0-53.0) % MCV (80.0-100.0) fL MCH (25.0-35.0) pg MCHC (31.0-37.0) g/dL RDW (11.5-15.5) % Plt Count (150-450) k/uL MPV Neutrophils % % Lymphocytes % % Monocytes % % Eosinophils % % Basophils % % Neutrophils # (1.3-7.7) k/uL Lymphocytes # (1.0-4.8) k/uL Monocytes # (0-1.0) k/uL Eosinophils # (0-0.7) k/uL Basophils # (0-0.2) k/uL Hypochromasia Poikilocytosis Macrocytosis PT (9.0-12.0) sec INR (<1.2) APTT (22.0-30.0) sec Sodium (137-145) mmol/L Potassium (3.5-5.1) mmol/L Chloride (98-107) mmol/L Carbon Dioxide (22-30) mmol/L Anion Gap mmol/L BUN (9-20) mg/dL Creatinine (0.66-1.25) mg/dL Est GFR (CKD-EPI)AfAm (>60 ml/min/1.73 sqM) Est GFR (CKD-EPI)NonAf (>60 ml/min/1.73 sqM) Glucose (74-99) mg/dL Calcium (8.4-10.2) mg/dL Magnesium (1.6-2.3) mg/dL Total Bilirubin (0.2-1.3) mg/dL AST (17-59) U/L ALT (4-49) U/L Alkaline Phosphatase (38-126) U/L Creatine Kinase (55-170) U/L Troponin I 0.083 H* (0.000-0.034) ng/mL Total Protein (6.3-8.2) g/dL Albumin (3.5-5.0) g/dL Lipase (23-300) U/L Disposition Clinical Impression: Chest pain, Elevated troponin, Chronic renal failure syndrome, Hypoxemia Disposition: ADMITTED IP TO THIS HOSP Condition: Fair Referrals: Edward Bowen MD [Primary Care Provider] - 1-2 days
[2021-05-15] MEDS: MELATONIN 5 MG TABLET PO PRN ×2 (00:26→22:24)
[2021-05-15] MEDS: ONDANSETRON 4 MG/2 ML VIAL IVP PRN ×2 (00:27→22:23)
[2021-05-15] MEDS ORDERED: FUROSEMIDE 10 MG/ML 4 ML VIAL IV STA (07:24)
[2021-05-15 07:50] LABS: Basophils # (A) 0.1 k/uL (0-0.2); Basophils % (A) 1 %; Eosinophils # (A) 0.4 k/uL (0-0.7); Eosinophils % (A) 4 %; HGB 9.9 gm/dL (13.0-17.5); Lymphocytes # (A) 1.6 k/uL (1.0-4.8); Lymphocytes % (A) 15 %; MCH 32.6 pg (25.0-35.0); MCV 98.8 fL (80.0-100.0); Mean Platelet Volume 10.1; Monocytes # (A) 0.8 k/uL (0-1.0); Monocytes % (A) 8 %; Neutrophils # (A) 7.3 k/uL (1.3-7.7); Neutrophils % (A) 71 %; Platelet Count 188 k/uL (150-450); RBC 3.04 m/uL (4.30-5.90); RDW 13.4 % (11.5-15.5); WBC 10.4 k/uL (3.8-10.6)
[2021-05-15 07:54] LABS: Albumin 3.7 g/dL (3.5-5.0); Magnesium 2.4 mg/dL (1.6-2.3); Phosphorus 5.3 mg/dL (2.5-4.5); Potassium 5.1 mmol/L (3.5-5.1); Total Bilirubin 0.4 mg/dL (0.2-1.3)
[2021-05-15] MEDS ORDERED: LIDOCAINE-PRILOCAINE 2.5-2.5% CREAM 5 GM TUBE TOPICAL PRN (09:00)
[2021-05-15] MEDS ORDERED: ASPIRIN 325 MG TAB PO SCH (09:00)
[2021-05-15 10:43] LABS: Chol/HDL Ratio 3.34; LDL Cholesterol,Calculated 56.4 mg/dL (0.0-131.0); VLDL Calculation 18.6 mg/dL (5.00-40.00)
[2021-05-15] MEDS: CALCIUM ACETATE 667 MG TAB PO SCH ×3 (12:19→16:39)
--- NOTE | 2021-05-15 12:44 | P.CRDCN ---
History of Present Illness Consult date: 05/15/21 History of present illness: HISTORY OF PRESENT ILLNESS: This is a 81-year-old male with a past medical history significant for end-stage renal disease on hemodialysis Wednesday, , and Wednesday, ischemic cardiomyopathy, paroxysmal atrial fibrillation not on anticoagulation secondary to GI bleeding, coronary artery disease with previous PCI to the RCA. Patient follows in the office with Dr. Pisano. We have been asked to see the patient in c onsultation for elevated troponins. Patient examined at the bedside. Patient states he has been having chest discomfort intermittently for the past 3 days. He states the pain feels like a pressure in the middle of his chest. He reports increased pain with deep inspiration. There is no pain with chest wall palpation. He states the pain would last for a little while and then go away on its own. He did not take any medications to help with the pain. He denies any radiation of the pain. He denies any associated shortness of breath. Patient also reports he has been nauseated for the past 3 days. He did not go to his dialysis session on Wednesday secondary to his nausea. At the time of my examination, he denies chest pain or pressure. EKG reveals sinus mechanism with right bundle branch block. No signs of acute ischemia. Chest xray mild increased pulmonary interstitial density compared to exam. No pulmonary consolidation or heart failure. This could be mild interstitial pneumonia. Laboratory data: WBC 10.4. Hemoglobin 9.9. Platelet count 188. Sodium 139. Potassium 5.1. BUN 74. Creatinine 10.18. ProBNP 176,000. Troponin 0.083. 0.088. 0.095. Current home cardiac medications include Lipitor 40 mg daily, lisinopril 5 mg daily, aspirin 81 mg daily, and metoprolol tartrate 50 mg twice a day Most recent echocardiogram obtained in June 2020 revealed ejection fraction 30-35%. Mild mitral regurgitation. Mild tricuspid regurgitation. Severe pulmonary hypertension. Patient underwent a stress test in September 2020 with evidence of prior MA but no stress-induced ischemia REVIEW OF SYSTEMS: At the time of my exam: CONSTITUTIONAL: Denies fever or chills. HEENT: Denies blurred vision, vision changes, or eye pain. Denies hemoptysis CARDIOVASCULAR: Denies chest pain. Denies orthopnea. Denies PND. Denies palpitations RESPIRATORY: Denies shortness of breath. GASTROINTESTINAL: Denies abdominal pain. Denies nausea or vomiting. HEMATOLOGIC: Denies bleeding disorders. GENITOURINARY: Denies any blood in urine. SKIN: Denies pruitis. Denies rash. PHYSICAL EXAM: VITAL SIGNS: Reviewed. GENERAL: Well-developed in no acute distress. HEENT: Head is normocephalic. Pupils are equal, round. Sclerae anicteric. Mucous membranes of the mouth are moist. Neck supple. No JVD or thyromegaly LUNGS: Respirations even and unlabored. Lungs diminished to auscultation bilaterally. HEART: Regular rate and rhythm. S1 and S2 heard. ABDOMEN: Soft. Nondistended. Nontender. EXTREMITIES: Normal range of motion. No clubbing or cyanosis. Peripheral pulses intact. No lower extremity edema NEUROLOGIC: Awake and alert. Oriented x 3. ASSESSMENT: Nausea Chest pain, atypical, no evidence of acute coronary syndrome Chronic kidney disease on hemodialysis Abnormal troponins secondary to CKD Coronary artery disease with previous PCI to the RCA Paroxysmal atrial fibrillation, not on anticoagulation secondary to history of GI bleeding Ischemic cardiomyopathy PLAN: An acute coronary event has been ruled out Obtain 2-D echo to assess cardiac structure and function Resume home cardiac medications Continue dialysis per nephrology Further recommendations pending patient's course Nurse practitioner note has been reviewed by physician. Signing provider agrees with the documented findings, assessment, and plan of care. Past Medical History Past Medical History: Atrial Fibrillation, Coronary Artery Disease (CAD), Chest Pain / Angina, Heart Failure, GI Bleed, Hyperlipidemia, Hypertension, Myocardial Infarction (MA), Pneumonia, Renal Disease, Vascular Disorder Additional Past Medical History / Comment(s): 10/04/20 US TO CHECK FOR PATENCY OF DIALYSIS SHUNT. JUL 2020 ADMITTED FOR ANEMIA. ESRD with dialysis FOR MANY YEARS (, , ). 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 Iron deficiency anemia, Mineral bone disease, diverticulosis, colon polyp (removed), PVD , neck fx as a young person with seizures following last one years ago. Last Myocardial Infarction Date:: 2013 History of Any Multi-Drug Resistant Organisms: None Reported Past Surgical History: Heart Catheterization With Stent Additional Past Surgical History / Comment(s): 07/24/20 EGD. Bilateral cataract removal with lens implants, shunt L arm. Past Anesthesia/Blood Transfusion Reactions: No Reported Reaction Date of Last Stent Placement:: 2007 Past Psychological History: No Psychological Hx Reported, Anxiety Smoking Status: Current every day smoker, Light tobacco smoker Past Alcohol Use History: None Reported Past Drug Use History: None Reported - Past Family History Father Family Medical History: Myocardial Infarction (MA), Musculoskeletal Disorder Additional Family Medical History / Comment(s): Father at age 59 of a MA Mother Family Medical History: CVA/TIA Additional Family Medical History / Comment(s): Mother of a brain hemorrage. Medications and Allergies Home Medications Medication Instructions Recorded Confirmed Type Atorvastatin Calcium [Lipitor] 40 mg PO DAILY 07/02/20 05/14/21 History Calcium Acetate [PhosLo] 667 mg PO TID-W/MEALS tab 07/04/20 05/14/21 Rx Metoprolol Tartrate [Lopressor] 50 mg PO BID 30 Days #60 tab 07/04/20 05/14/21 Rx Pantoprazole [Protonix] 40 mg PO QAM 07/20/20 05/14/21 History Vit C/E/Zn/Coppr/Lutein/Zeaxan 1 cap PO BID 10/04/20 05/14/21 History [Preservision Areds 2 Softgel] lisinopriL [Zestril] 5 mg PO DAILY 10/04/20 05/14/21 History Aspirin EC [Ecotrin Low Dose] 81 mg PO DAILY 05/14/21 05/14/21 History Lidocaine-Prilocaine Cream [Emla 1 applic TOPICAL DAILY PRN 05/14/21 05/14/21 H istory Cream 2.5%/2.5%] Nephro-Fred 0.8mg 1 tab PO DAILY 05/14/21 05/14/21 History Allergies Allergy/AdvReac Type Severity Reaction Status Date / Time No Known Allergies Allergy Verified 05/14/21 19:39 Physical Exam Vitals: Vital Signs Temp Pulse Pulse Resp BP BP Pulse Ox 05/15/21 09:20 98.1 F 77 18 150/65 100 05/15/21 04:00 101 H 18 165/61 95 05/15/21 02:00 22 05/15/21 00:00 97.7 F 94 20 148/62 97 05/14/21 22:31 78 18 146/67 96 05/14/21 21:03 74 05/14/21 19:39 98.2 F 86 20 161/68 89 L Intake and Output 05/14/21 05/15/21 05/15/21 22:59 06:59 14:59 Other: Weight 72.575 kg 70.6 kg Results 05/15/21 06:57 05/15/21 06:57 Cardiac Enzymes 05/14/21 05/14/21 05/14/21 Range/Units 20:07 20:07 22:30 AST 19 (17-59) U/L Troponin I 0.083 H* 0.088 H* (0.000-0.034) ng/mL 05/15/21 05/15/21 Range/Units 02:06 06:57 AST 15 L (17-59) U/L Troponin I 0.095 H* (0.000-0.034) ng/mL Coagulation 05/14/21 Range/Units 20:07 PT 11.4 (9.0-12.0) sec APTT 23.4 (22.0-30.0) sec Lipids 05/15/21 Range/Units 02:06 Triglycerides 93.0 (0.0-149.0) mg/dL Cholesterol 107 (0-200) mg/dL HDL Cholesterol 32.0 L (40.0-60.0) mg/dL Cholesterol/HDL Ratio 3.34 CBC 05/14/21 05/15/21 Range/Units 20:07 06:57 WBC 12.8 H 10.4 (3.8-10.6) k/uL RBC 2.99 L 3.04 L (4.30-5.90) m/uL Hgb 10.4 L 9.9 L (13.0-17.5) gm/dL Hct 29.6 L 30.0 L (39.0-53.0) % Plt Count 206 188 (150-450) k/uL Comprehensive Metabolic Panel 05/14/21 05/15/21 Range/Units 20:07 06:57 Sodium 140 139 (137-145) mmol/L Potassium 5.1 5.1 (3.5-5.1) mmol/L Chloride 98 100 (98-107) mmol/L Carbon Dioxide 23 23 (22-30) mmol/L BUN 71 H 74 H (9-20) mg/dL Creatinine 9.82 H* 10.18 H* (0.66-1.25) mg/dL Glucose 118 H 101 H (74-99) mg/dL Calcium 9.0 9.0 (8.4-10.2) mg/dL AST 19 15 L (17-59) U/L ALT 11 8 (4-49) U/L Alkaline Phosphatase 78 71 (38-126) U/L Total Protein 6.5 6.0 L (6.3-8.2) g/dL Albumin 4.1 3.7 (3.5-5.0) g/dL Current Medications Generic Name Dose Route Start Last Admin Trade Name Freq PRN Reason Stop Dose Admin Aspirin 81 mg 05/15/21 09:00 Aspirin 81 Mg PO DAILY [facility] Atorvastatin Calcium 40 mg 05/15/21 09:00 Atorvastatin 40 Mg Tab PO DAILY [facility] Calcium Acetate 667 mg 05/15/21 07:30 05/15/21 12:19 Calcium Acetate 667 Mg Tab PO Not Given TID-W/MEALS [facility] Lidocaine/Prilocaine 1 applic 05/15/21 09:00 Lidocaine-Prilocaine 2.5-2.5% Cream 5 Gm Tube TOPICAL DAILY PRN PORT ACCESS Protocol Lisinopril 5 mg 05/15/21 09:00 Lisinopril 5 Mg Tab PO DAILY [facility] Melatonin 10 mg 05/15/21 00:07 05/15/21 00:26 Melatonin 5 Mg Tablet PO 10 mg HS PRN Administration Insomnia Metoprolol Tartrate 50 mg 05/15/21 09:00 Metoprolol Tartrate 50 Mg Tab PO BID [facility] Multivit/Ca Carb/B Cmplx/FA/Prenat 1 each 05/15/21 09:00 Folic Acid-Vit B Complex-Vit C 1 Cap PO DAILY [facility] Multivitamins/Minerals 1 each 05/15/21 09:00 Vit A,C & Z-Nauvjt-Klsxnlzs 1 Each Tab PO BID [facility] Nitroglycerin 0.4 mg 05/14/21 21:41 Nitroglycerin Sl Tabs 0.4 Mg Tab SUBLINGUAL Q5M PRN Chest Pain Ondansetron HCl 4 mg 05/15/21 00:06 05/15/21 00:27 Ondansetron 4 Mg/2 Ml Vial IVP 4 mg Q8HR PRN Administration Nausea And Vomiting Pantoprazole Sodium 40 mg 05/15/21 09:00 Pantoprazole 40 Mg Tablet PO QA SHERRIE Intake and Output 05/14/21 05/15/21 05/15/21 22:59 06:59 14:59 Other: Weight 72.575 kg 70.6 kg 05/15/21 06:57 05/15/21 06:57
--- NOTE | 2021-05-15 13:03 | CONS ---
CONSULTATION REASON FOR CONSULT: End-stage renal disease. HISTORY OF PRESENT ILLNESS: The patient is an 81-year-old male who was admitted to the hospital with complaints of nausea and vomiting. He also had chest pains. Patient stated he was not able to eat anything for 1-2 days prior to admission. He is normally maintained on hemodialysis on a Wednesday, , Wednesday schedule. The patient had missed his treatment on Wednesday. His x-ray showed evidence of mild fluid overload. He is currently being dialyzed. PAST MEDICAL HISTORY: End-stage renal disease, hypertension, chronic atrial fibrillation, coronary artery disease, hyperlipidemia, [place], history of pneumonia, peripheral vascular disease, CKD mineral bone disorder, anemia of chronic disease, history of seizures. PAST SURGICAL HISTORY: Cardiac catheterization, coronary stent placement, cataract surgery. SOCIAL HISTORY: Positive for smoking tobacco. No history of drug abuse. MEDICATIONS: Medications prior to admission included Lipitor, Protonix, Zestril, aspirin, Nephro- Fred, PhosLo, Lopressor. ALLERGIES: NONE. REVIEW OF SYSTEMS: As per HPI. Other systems negative. PHYSICAL EXAMINATION: Patient is comfortable, awake, alert, oriented x3, not in any acute distress. Blood pressure 150/65, heart rate 77 per minute. He is afebrile. EXAMINATION OF THE HEART: S1 and S2. EXAMINATION OF LUNGS: Bilateral breath sounds are heard. ABDOMEN: Soft, nontender. LOWER EXTREMITIES: Examination of lower extremities shows no significant edema.. AEROBICS TEACHER EXAM: Grossly intact. Labs show sodium 139, potassium 5.1, chloride 100, BUN 23, creatinine 10.1, hemoglobin 9.9 g/dL. ASSESSMENT: 1. End-stage renal disease, on hemodialysis on a Wednesday, , Wednesday schedule. Patient had missed his dialysis on Wednesday. We will dialyze him today, goal UF of about 2 to 2.5 L as tolerated. 2. Mild volume overload. Expect improvement with hemodialysis today. 3. Borderline elevated troponin with chest pain, being followed by Cardiology. 4. Chronic kidney disease mineral bone disorder, maintained on PhosLo. 5. Hypertension, partly volume-sensitive. Expect improvement post dialysis. PLAN: Increase UF to about 2.5 L today with dialysis. Continue with the phosphate binders. Further workup as per Cardiology. MMODL / IJN: [id number] /
[2021-05-15] MEDS: FOLIC ACID-VIT B COMPLEX-VIT C 1 CAP PO SCH (16:38)
[2021-05-15] MEDS: VIT A,C & E-LUTEIN-MINERALS 1 EACH TAB PO SCH ×2 (16:39→22:38)
[2021-05-15] MEDS: PANTOPRAZOLE 40 MG TABLET PO SCH (16:39)
[2021-05-15] MEDS: ATORVASTATIN 40 MG TAB PO SCH (16:39)
[2021-05-15] MEDS: lisinopriL 5 MG TAB PO SCH (16:39)
[2021-05-15] MEDS: METOPROLOL TARTRATE 50 MG TAB PO SCH ×2 (16:39→22:24)
[2021-05-15] MEDS: ASPIRIN 81 MG PO SCH (16:39)
--- NOTE | 2021-05-15 18:00 | ECHOF ---
Referral Reason:LV function MEASUREMENTS -------- HEIGHT: 172.7 cm WEIGHT: 70.3 kg BP: IVSd: 1.3 cm (0.6 - 1.1) LVIDd: 4.8 cm (3.9 - 5.3) LVPWd: 1.3 cm (0.6 - 1.1) EDV(Teich): 108 ml IVSs: 1.9 cm LVIDs: 4.0 cm LVPWs: 1.4 cm %IVS Thck: 46 % ESV(Teich): 71 ml EF(Teich): 34 % %FS: 16 % SV(Teich): 37 ml LA Diam: 4.0 cm (2.7 - 3.8) RVIDd: 3.4 cm (< 3.3) IVC: 22.34 mm LALs A4C: 6.1 cm LAAs A4C: 23.1 cm LAESV A-L A4C: 74 ml LAESV MOD A4C: 65 ml LALs A2C: 4.0 cm LAAs A2C: 14.1 cm LAESV A-L A2C: 42 ml LAESV MOD A2C: 40 ml LAESV(A-L): 69 ml LAESV Index (A-L): 37.49 ml/m Ao Diam: 3.1 cm (2.0 - 3.7) LA Diam: 3.1 cm (2.7 - 3.8) AV Cusp: 1.7 cm (1.5 - 2.6) EPSS: 0.7 cm MV E Bhaskar: 0.86 m/s MV DecT: 132 ms MV Dec [place]: 6.5 m/s MV A Bhaskar: 0.87 m/s MV E/A Ratio: 0.98 MV PHT: 38 ms MR Vmax: 2.47 m/s MR maxP.40 mmHg AV Vmax: 1.24 m/s AV maxP.16 mmHg TR Vmax: 3.89 m/s TR maxP.59 mmHg RAP: 15.00 mmHg RVSP: 75.59 mmHg MV EF SLOPE: 71.05 mm/s (70 - 150) MV EXCURSION: 17.70 mm (> 18.000) FINDINGS -------- This was a technically good study. The left ventricular size is normal. There is mild concentric left ventricular hypertrophy. Overa ll left ventricular systolic function is moderately impaired with, an EF between 35 - 40 %. Increas ed LAP stage 3 Diastolic Dysfunction. Inferiorlateral Hypokinesis The right ventricle is mildly enlarged. LA is moderately dilated 34-39 ml/m2 The right atrial size is normal. Aortic valve is trileaflet and is mildly thickened. The mitral valve is normal. The mitral valve leaflets are mildly thickened. Mild mitral annular c alcification present. Mild mitral regurgitation is present. The tricuspid valve appears structurally normal. Moderate tricuspid regurgitation present. There is severe pulmonary hypertension. The right ventricular systolic pressure, as measured by Doppler, is 75.59mmHg. There is no pulmonic regurgitation present. The aortic root size is normal. The inferior vena cava is mildly dilated. There is no pericardial effusion. CONCLUSIONS -------- 1. The left ventricular size is normal. 2. There is mild concentric left ventricular hypertrophy. 3. Overall left ventricular systolic function is moderately impaired with, an EF between 35 - 40 %. 4. Increased LAP stage 3 Diastolic Dysfunction. 5. Inferiorlateral Hypokinesis 6. The right ventricle is mildly enlarged. 7. LA is moderately dilated 34-39 ml/m2 8. Aortic valve is trileaflet and is mildly thickened. 9. The mitral valve leaflets are mildly thickened. 10. Mild mitral annular calcification present. 11. Mild mitral regurgitation is present. 12. Moderate tricuspid regurgitation present. 13. There is severe pulmonary hypertension. 14. The right ventricular systolic pressure, as measured by Doppler, is 75.59mmHg. 15. The inferior vena cava is mildly dilated. 16. There is no pericardial effusion. BRASS BOBBIN WINDER: Josefina Edwards [facility]
--- NOTE | 2021-05-15 18:10 | P.HPIM ---
History of Present Illness H&P Date: 05/15/21 Chief Complaint: Chest pain associated with shortness of breath 81-year-old male with significant past medical history of end-stage renal disease on hemodialysis Wednesday, , and Saturdays, ischemic cardiomyopathy, paroxysmal atrial fibrillation, coronary artery disease with previous stents, hyperlipidemia, history of GI bleeds, hypertension, history of myocardial infarction, chronic anemia, and several other comorbidities. Patient had extensive diagnostic workup in the emergency department revealing worsening kidney function, patient missed dialysis on Wednesday, due to chest discomfort with associated shortness of breath started on Wednesday was unable to attend dialysis treatment. Patient noted to have elevated BUN and creatinine, elevated troponins, elevated BNP, chest x-ray reviewed possible mild interstitial pneumonia. Patient is admitted to the hospital with worsening kidney function, elevated troponins, and increasing shortness of breath. Consultation with cardiology for elevated troponins and chest discomfort for rule out unstable angina; consultation with nephrology for hemodialysis and worsening kidney function. 05/15/2021 Patient seen and examined at bedside. Patient noted to have mild shortness of breath with few word sentences. Patient states over the last 3 days chest discomfort with associated shortness of breath had progressively worsening, patient states was unable to attend dialysis due to chest discomfort and shor tness of breath. Currently patient denies chest pain or palpitations at this time. Vital signs and diagnostic testing results reviewed. Treatment plan discussed with patient and nursing staff. Review of Systems Constitutional: Reports fatigue, Reports weakness, Reports weight gain Cardiovascular: Reports decreased exercise tolerance, Reports dyspnea on exertion, Reports shortness of breath Respiratory: Reports dyspnea, Reports pain on inspiration Gastrointestinal: Reports nausea Musculoskeletal: Reports muscle weakness Neurological: Reports balance difficulties, Reports lack of coordination, Reports weakness Psychiatric: Reports as per HPI Endocrine: Reports as per HPI Past Medical History Past Medical History: Atrial Fibrillation, Coronary Artery Disease (CAD), Chest Pain / Angina, Heart Failure, GI Bleed, Hyperlipidemia, Hypertension, Myocardial Infarction (NM), Pneumonia, Renal Disease, Vascular Disorder Additional Past Medical History / Comment(s): 10/04/20 US TO CHECK FOR PATENCY OF DIALYSIS SHUNT. JUL 2020 ADMITTED FOR ANEMIA. ESRD with dialysis FOR MANY YEARS (, , ). 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 Iron deficiency anemia, Mineral bone disease, diverticulosis, colon polyp (removed), PVD , neck fx as a young person with seizures following last one years ago. Last Myocardial Infarction Date:: 2013 History of Any Multi-Drug Resistant Organisms: None Reported Past Surgical History: Heart Catheterization With Stent Additional Past Surgical History / Comment(s): 07/24/20 EGD. Bilateral cataract removal with lens implants, shunt L arm. Past Anesthesia/Blood Transfusion Reactions: No Reported Reaction Date of Last Stent Placement:: 2007 Past Psychological History: No Psychological Hx Reported, Anxiety Additional Psychological History / Comment(s): Pt resides with his Sarai braswell. Daughter manages his meds. He has a cane which he uses prn. He is independent with his ADLs. He drives a car. He has no home care agency. Smoking Status: Current every day smoker, Light tobacco smoker Past Alcohol Use History: None Reported Additional Past Alcohol Use History / Comment(s): Pt started smoking in 1954. Patient smokes 6-7 cigarettes a day. USING NICOTINE PATCH Past Drug Use History: None Reported - Past Family History Father Family Medical History: Myocardial Infarction (NM), Musculoskeletal Disorder Additional Family Medical History / Comment(s): Father at age 59 of a NM Mother Family Medical History: CVA/TIA Additional Family Medical History / Comment(s): Mother of a brain hemorrage. Medications and Allergies Home Medications and Allergies Comment(s): Medications and ALLERGIES reviewed Home Medications Medication Instructions Recorded Confirmed Type Atorvastatin Calcium [Lipitor] 40 mg PO DAILY 07/02/20 05/14/21 History Calcium Acetate [PhosLo] 667 mg PO TID-W/MEALS tab 07/04/20 05/14/21 Rx Metoprolol Tartrate [Lopressor] 50 mg PO BID 30 Days #60 tab 07/04/20 05/14/21 Rx Pantoprazole [Protonix] 40 mg PO QAM 07/20/20 05/14/21 History Vit C/E/Zn/Coppr/Lutein/Zeaxan 1 cap PO BID 10/04/20 05/14/21 History [Preservision Areds 2 Softgel] lisinopriL [Zestril] 5 mg PO DAILY 10/04/20 05/14/21 History Aspirin EC [Ecotrin Low Dose] 81 mg PO DAILY 05/14/21 05/14/21 History Lidocaine-Prilocaine Cream [Emla 1 applic TOPICAL DAILY PRN 05/14/21 05/14/21 History Cream 2.5%/2.5%] Nephro-Fred 0.8mg 1 tab PO DAILY 05/14/21 05/14/21 History Allergies Allergy/AdvReac Type Severity Reaction Status Date / Time No Known Allergies Allergy Verified 05/14/21 19:39 Physical Exam Vitals: Vital Signs Temp Pulse Pulse Resp BP BP Pulse Ox 05/15/21 16:05 98.2 F 88 16 147/62 96 05/15/21 14:21 97.9 F 61 18 130/55 05/15/21 11:35 97.9 F 96 18 125/61 91 L 05/15/21 09:20 98.1 F 77 18 150/65 100 05/15/21 04:00 101 H 18 165/61 95 05/15/21 02:00 22 05/15/21 00:00 97.7 F 94 20 148/62 97 05/14/21 22:31 78 18 146/67 96 05/14/21 21:03 74 05/14/21 19:39 98.2 F 86 20 161/68 89 L Intake and Output 05/15/21 05/15/21 05/15/21 06:59 14:59 22:59 Intake Total 180 Output Total 2500 Balance -2500 180 Intake: Oral 180 Output: Hemodialysis 2500 Other: # Voids 0 Weight 70.6 kg 70.6 kg - Constitutional General appearance: mild distress - EENT Eyes: EOMI, PERRLA ENT: normal oropharynx Ears: bilateral: normal - Neck Neck: normal ROM Carotids: bilateral: upstroke normal - Respiratory Respiratory: bilateral: diminished (Anterior and posterior lung fish) - Cardiovascular Rhythm: regular Heart sounds: normal: S1, S2 radial pulse Peripheral Pulses: bilateral: Normal dorsalis pedis Peripheral Pulses: bilateral: Normal - Gastrointestinal General gastrointestinal: normal bowel sounds, soft - Integumentary Integumentary: decreased turgor, pale - Neurologic Neurologic: CNII-XII intact - Musculoskeletal Musculoskeletal: generalized weakness - Psychiatric Psychiatric: A&O x's 3 Results CBC & Chem 7: 05/15/21 06:57 05/15/21 06:57 Labs: Abnormal Lab Results - Last 24 Hours (Table) 05/14/21 05/14/21 05/14/21 Range/Units 20:07 20:07 20:07 WBC 12.8 H (3.8-10.6) k/uL RBC 2.99 L (4.30-5.90) m/uL Hgb 10.4 L (13.0-17.5) gm/dL Hct 29.6 L (39.0-53.0) % Neutrophils # 10.3 H (1.3-7.7) k/uL BUN 71 H (9-20) mg/dL Creatinine 9.82 H* (0.66-1.25) mg/dL Glucose 118 H (74-99) mg/dL Phosphorus (2.5-4.5) mg/dL Magnesium 2.4 H (1.6-2.3) mg/dL AST (17-59) U/L Creatine Kinase <20 L (55-170) U/L Troponin I 0.083 H* (0.000-0.034) ng/mL Total Protein (6.3-8.2) g/dL HDL Cholesterol (40.0-60.0) mg/dL 05/14/21 05/15/21 05/15/21 Range/Units 22:30 02:06 02:06 WBC (3.8-10.6) k/uL RBC (4.30-5.90) m/uL Hgb (13.0-17.5) gm/dL Hct (39.0-53.0) % Neutrophils # (1.3-7.7) k/uL BUN (9-20) mg/dL Creatinine (0.66-1.25) mg/dL Glucose (74-99) mg/dL Phosphorus (2.5-4.5) mg/dL Magnesium (1.6-2.3) mg/dL AST (17-59) U/L Creatine Kinase (55-170) U/L Troponin I 0.088 H* 0.095 H* (0.000-0.034) ng/mL Total Protein (6.3-8.2) g/dL HDL Cholesterol 32.0 L (40.0-60.0) mg/dL 05/15/21 05/15/21 Range/Units 06:57 06:57 WBC (3.8-10.6) k/uL RBC 3.04 L (4.30-5.90) m/uL Hgb 9.9 L (13.0-17.5) gm/dL Hct 30.0 L (39.0-53.0) % Neutrophils # (1.3-7.7) k/uL BUN 74 H (9-20) mg/dL Creatinine 10.18 H* (0.66-1.25) mg/dL Glucose 101 H (74-99) mg/dL Phosphorus 5.3 H (2.5-4.5) mg/dL Magnesium 2.4 H (1.6-2.3) mg/dL AST 15 L (17-59) U/L Creatine Kinase (55-170) U/L Troponin I (0.000-0.034) ng/mL Total Protein 6.0 L (6.3-8.2) g/dL HDL Cholesterol (40.0-60.0) mg/dL Chest x-ray: report reviewed Thrombosis Risk Factor Assmnt - Choose All That Apply Any of the Below Risk Factors Present?: Yes Each Factor Represents 1 point: Medical pt on bed rest Other Risk Factors: Yes Each Risk Factor Represents 3 Points: Age 75 years or older Other congenital or acquired thrombophilia - If yes, enter type in comment: No Thrombosis Risk Factor Assessment Total Risk Factor Score: 4 Thrombosis Risk Factor Assessment Level: Moderate Risk Assessment and Plan Assessment: Chest discomfort, atypical in nature Dyspnea, possibly related to missed dialysis on Wednesday Elevated troponins Ischemic cardiomyopathy Elevated BUN and creatinine, dependent on hemodialysis Wednesday, and Wednesday Paroxysmal atrial fibrillation, not on anticoagulation therapy due to history of GI bleed Coronary artery disease with cardiac catheterization and stents Hyperlipidemia Hypertension History of gastrointestinal bleeding Anxiety Nicotine dependence Full code Plan: Atypical chest pain, with elevated troponins; consultation with cardiology for recommendations. Twelve-lead EKG no acute changes. Holding on anticoagulation therapy due to history of gastrointestinal bleeding Acute on chronic kidney disease, elevated BUN and creatinine possibly due to missed dialysis on Wednesday, consultation with nephrology for recommendations on hemodialysis Continue to monitor vital signs of diagnostic testing Continue home medications Further recommendations come based on patient's clinical condition Time with Patient: Greater than 30
[2021-05-16] MEDS ORDERED: ALPRAZolam 0.25 MG TAB PO STA (01:34)
[2021-05-16 06:42] LABS: Basophils # (A) 0.1 k/uL (0-0.2); Basophils % (A) 0 %; Eosinophils # (A) 0.3 k/uL (0-0.7); Eosinophils % (A) 2 %; HGB 10.8 gm/dL (13.0-17.5); Hypochromasia Slight; Lymphocytes # (A) 1.2 k/uL (1.0-4.8); Lymphocytes % (A) 9 %; MCH 33.5 pg (25.0-35.0); MCHC 33.7 g/dL (31.0-37.0); MCV 99.3 fL (80.0-100.0); Monocytes % (A) 8 %; Neutrophils # (A) 10.2 k/uL (1.3-7.7); Neutrophils % (A) 78 %; Platelet Count 224 k/uL (150-450); Poikilocytosis Slight; RBC 3.22 m/uL (4.30-5.90); RDW 13.8 % (11.5-15.5); WBC 13.1 k/uL (3.8-10.6)
[2021-05-16] MEDS ORDERED: PROCHLORPERAZINE INJ 10 MG/2 ML VIAL IVP PRN (06:45)
[2021-05-16] MEDS: ALPRAZolam 0.25 MG TAB PO PRN ×2 (07:09→20:43)
[2021-05-16 07:18] LABS: Albumin 3.8 g/dL (3.5-5.0); Calcium 8.9 mg/dL (8.4-10.2); Magnesium 2.2 mg/dL (1.6-2.3); Phosphorus 5.2 mg/dL (2.5-4.5); Total Bilirubin 0.5 mg/dL (0.2-1.3); Total Protein 6.3 g/dL (6.3-8.2)
--- NOTE | 2021-05-16 08:12 | XR ---
EXAMINATION TYPE: XR chest 2V DATE OF EXAM: 05/16/2021 COMPARISON: 05/14/2021 HISTORY: Shortness of breath TECHNIQUE: Frontal and lateral views of the chest are obtained. FINDINGS: Scattered senescent parenchymal changes noted. Hyperinflation compatible with COPD. No evidence for infiltrate. No evidence for atelectasis. Heart size is stable. Mediastinal structures are stable and grossly unremarkable. No evidence for hilar prominence. Degenerative changes dorsal spine. IMPRESSION: 1. No evidence for acute pulmonary disease.
[2021-05-16] MEDS: PANTOPRAZOLE 40 MG TABLET PO SCH (09:12)
[2021-05-16] MEDS: CALCIUM ACETATE 667 MG TAB PO SCH ×3 (09:12→17:23)
[2021-05-16] MEDS: ASPIRIN 81 MG PO SCH (09:12)
[2021-05-16] MEDS: VIT A,C & E-LUTEIN-MINERALS 1 EACH TAB PO SCH ×2 (09:12→20:43)
[2021-05-16] MEDS: ATORVASTATIN 40 MG TAB PO SCH (09:12)
[2021-05-16] MEDS: FOLIC ACID-VIT B COMPLEX-VIT C 1 CAP PO SCH (09:12)
--- NOTE | 2021-05-16 10:50 | P.PN ---
Subjective Progress Note Date: 05/16/21 Principal diagnosis: Chest discomfort This is an 81-year-old gentleman with coronary artery disease and prior revascularization as well as paroxysmal atrial fibrillation as well as chronic kidney disease as well as history of ischemic cardiomyopathy presented to the hospital with symptoms of nausea and we consulted to see the patient for chest discomfort was was atypical for angina. We advised a conservative medical approach and also obtaining an echocardiogram. The echo revealed impaired LV function was EF around 35%. The echo is similar to prior echo from September 2020 . The patient was seen this morning. He remains asymptomatic at this point. He is slightly confused but he was given Ativan earlier today. He remains hemodynamically stable. He is on aspirin as well as a statin as well as beta cynthia. The lisinopril was stopped by the nephrology service. Objective - Vital Signs Vital signs: Vital Signs Temp 97.8 F 05/15/21 20:00 Pulse 68 05/16/21 04:00 Resp 20 05/16/21 04:00 BP 120/55 05/16/21 04:00 Pulse Ox 96 05/16/21 04:00 Intake & Output 05/15/21 05/16/21 05/16/21 18:59 06:59 18:59 Intake Total 180 180 Output Total 2500 Balance -2320 180 Weight 70.6 kg Intake: Oral 180 180 Output: Hemodialysis 2500 Other: # Voids 0 1 # Bowel Movements 1 - Constitutional General appearance: Present: no acute distress - Respiratory Respiratory: bilateral: diminished - Cardiovascular Rhythm: regular Heart sounds: normal: S1, S2 - Labs CBC & Chem 7: 05/16/21 06:21 05/16/21 06:21 Labs: Abnormal Lab Results - Last 24 Hours (Table) 05/16/21 05/16/21 Range/Units 06:21 06:21 WBC 13.1 H (3.8-10.6) k/uL RBC 3.22 L (4.30-5.90) m/uL Hgb 10.8 L (13.0-17.5) gm/dL Hct 32.0 L (39.0-53.0) % Neutrophils # 10.2 H (1.3-7.7) k/uL Sodium 136 L (137-145) mmol/L BUN 34 H (9-20) mg/dL Creatinine 5.71 H (0.66-1.25) mg/dL Glucose 127 H (74-99) mg/dL Phosphorus 5.2 H (2.5-4.5) mg/dL Assessment and Plan Assessment: Assessment #1 atypical chest discomfort which has resolved #2 coronary artery disease #3 ischemic cardiomyopathy #4 paroxysmal atrial fibrillation Plan #1 continue the current medical regimen #2 continue the conservative medical approach #3 follow-up with the patient
--- NOTE | 2021-05-16 13:46 | PN ---
PROGRESS NOTE Patient is seen for followup for end-stage renal disease. He was admitted to the hospital with chest pain. He was found to be in volume overload and he was dialyzed yesterday. This morning patient is complaining of increased weakness. His blood pressure is on the lower side. We had 2.5 L of ultrafiltration yesterday. PHYSICAL EXAMINATION: On examination today, blood pressure 120/55 earlier, currently 107/67; heart rate 68 per minute, he is afebrile. Examination of the heart S1, S2. Examination of the lungs, bilateral breath sounds are heard. Abdomen is soft, nontender. Examination of lower extremities shows no significant edema. STATE TROOPER exam grossly intact. LAB: Show sodium 136, potassium 5.0, serum creatinine down to 5.7, hemoglobin 10.8 g/dL. ASSESSMENT: 1. End-stage renal disease, on hemodialysis on a Wednesday, , Wednesday schedule. We will schedule treatment tomorrow. 2. Fluid overload, currently improved, however blood pressure is low. Patient is complaining of increased weakness. We will only plan for about a liter tomorrow. I will hold off on the lisinopril today as his blood pressure is low and decrease the dose of Lopressor as well. 3. Borderline elevated troponin with chest pain on admission, being followed by Cardiology. 4. Chronic kidney disease mineral bone disorder. 5. Hypertension, blood pressure currently low, mostly volume sensitive, improved post ultrafiltration. PLAN: Hemodialysis in a.m., UF about 1 L and hold antihypertensive medications. Decrease dose of Lopressor. MMODL / IJN: [id number] /
--- NOTE | 2021-05-16 17:51 | P.PN ---
Subjective Progress Note Date: 05/16/21 Principal diagnosis: KATARINA on CKD dependent on hemodialysis Wednesday, , Wednesday Elevated troponins, possibly secondary to chronic renal disease 81-year-old male with significant past medical history of end-stage renal disease on hemodialysis Wednesday, , and Saturdays, ischemic cardiomyopathy, paroxysmal atrial fibrillation, coronary artery disease with previous stents, hyperlipidemia, history of GI bleeds, hypertension, history of myocardial infarction, chronic anemia, and several other comorbidities. Patient had extensive diagnostic workup in the emergency department revealing worsening kidney function, patient missed dialysis on Wednesday, due to chest discomfort with associated shortness of breath started on Wednesday was unable to attend dialysis treatment. Patient noted to have elevated BUN and creatinine, elevated troponins, elevated BNP, chest x-ray reviewed possible mild interstitial pneumonia. Patient is admitted to the hospital with worsening kidney function, elevated troponins, and increasing shortness of breath. Consultation with cardiology for elevated troponins and chest discomfort for rule out unstable angina; consultation with nephrology for hemodialysis and worsening kidney function. 05/15/2021 Patient seen and examined at bedside. Patient noted to have mild shortness of breath with few word sentences. Patient states over the last 3 days chest discomfort with associated shortness of breath had progressively worsening, patient states was unable to attend dialysis due to chest discomfort and shortness of breath. Currently patient denies chest pain or palpitations at this time. Vital signs and diagnostic testing results reviewed. Treatment plan discussed with patient and nursing staff. 05/16/2021 Patient seen and examined at bedside. Patient has improvement with shortness of breath and breathing status. Patient had hemodialysis yesterday per nephrology's orders. Patient seen by a cardiology no further headache workup noted. Patient had overt episodes of anxiety throughout the night and nausea; p atient to be given antiemetics and anti-lytics as needed for anxiety and nausea. Vital signs and diagnostic testing reviewed Objective - Vital Signs Vital signs: Vital Signs Temp 97.5 F L 05/16/21 16:00 Pulse 71 05/16/21 16:00 Resp 18 05/16/21 16:00 BP 115/53 05/16/21 16:00 Pulse Ox 91 L 05/16/21 16:00 Intake & Output 05/15/21 05/16/21 05/16/21 18:59 06:59 18:59 Intake Total 180 360 Output Total 2500 Balance -2320 360 Weight 70.6 kg Intake: Oral 180 360 Output: Hemodialysis 2500 Other: # Voids 0 1 1 # Bowel Movements 1 - Constitutional General appearance: Present: cooperative, mild distress - EENT Eyes: Present: EOMI, PERRLA ENT: Present: hard of hearing Ears: bilateral: normal - Neck Thyroid: bilateral: normal size - Respiratory Respiratory: bilateral: diminished (Anterior and posterior lung fish) - Cardiovascular Heart rate: 85 Heart sounds: normal: S1, S2 - Peripheral pulses radial pulse Peripheral Pulses: bilateral: Normal - Gastrointestinal General gastrointestinal: Present: normal bowel sounds, soft - Integumentary Integumentary: Present: decreased turgor, pale - Neurologic Neurologic: Present: CNII-XII intact - Musculoskeletal Musculoskeletal: Present: generalized weakness - Psychiatric Psychiatric: Present: A&O x's 3 - Allied health notes Allied health notes reviewed: nursing - Labs CBC & Chem 7: 05/16/21 06:21 05/16/21 06:21 Labs: Abnormal Lab Results - Last 24 Hours (Table) 05/16/21 05/16/21 Range/Units 06:21 06:21 WBC 13.1 H (3.8-10.6) k/uL RBC 3.22 L (4.30-5.90) m/uL Hgb 10.8 L (13.0-17.5) gm/dL Hct 32.0 L (39.0-53.0) % Neutrophils # 10.2 H (1.3-7.7) k/uL Sodium 136 L (137-145) mmol/L BUN 34 H (9-20) mg/dL Creatinine 5.71 H (0.66-1.25) mg/dL Glucose 127 H (74-99) mg/dL Phosphorus 5.2 H (2.5-4.5) mg/dL - Imaging and Cardiology Chest x-ray: report reviewed Assessment and Plan Assessment: Chest discomfort, atypical in nature Dyspnea, possibly related to missed dialysis on Wednesday Elevated troponins Ischemic cardiomyopathy Elevated BUN and creatinine, dependent on hemodialysis Wednesday, and Wednesday Paroxysmal atrial fibrillation, not on anticoagulation therapy due to history of GI bleed Coronary artery disease with cardiac catheterization and stents Hyperlipidemia Hypertension History of gastrointestinal bleeding Anxiety Nicotine dependence DO NOT RESUSCITATE Plan: Atypical chest pain, with elevated troponins; consultation with cardiology for recommendations. Twelve-lead EKG no acute changes. Holding on anticoagulation therapy due to history of gastrointestinal bleeding Acute on chronic kidney disease, elevated BUN and creatinine possibly due to missed dialysis on Wednesday, consultation with nephrology for recommendations on hemodialysis Continue to monitor vital signs of diagnostic testing Continue home medications Further recommendations come based on patient's clinical condition Hopeful discharge in 24-48 hours Time with Patient: Greater than 30
[2021-05-16] MEDS: METOPROLOL TARTRATE 50 MG TAB PO SCH (18:04)
[2021-05-16] MEDS: lisinopriL 5 MG TAB PO SCH (18:04)
[2021-05-17] MEDS: METOPROLOL TARTRATE 25 MG TAB PO SCH ×3 (00:19→19:39)
[2021-05-17] MEDS: CALCIUM ACETATE 667 MG TAB PO SCH ×3 (06:39→17:20)
[2021-05-17] MEDS: VIT A,C & E-LUTEIN-MINERALS 1 EACH TAB PO SCH ×2 (09:17→19:41)
[2021-05-17] MEDS: ATORVASTATIN 40 MG TAB PO SCH (09:17)
[2021-05-17] MEDS: PANTOPRAZOLE 40 MG TABLET PO SCH (09:17)
[2021-05-17] MEDS: ASPIRIN 81 MG PO SCH (09:17)
[2021-05-17] MEDS: FOLIC ACID-VIT B COMPLEX-VIT C 1 CAP PO SCH (09:17)
[2021-05-17 09:55] LABS: Basophils # (A) 0.1 k/uL (0-0.2); Basophils % (A) 1 %; Eosinophils # (A) 0.5 k/uL (0-0.7); Eosinophils % (A) 4 %; HCT 33.2 % (39.0-53.0); HGB 11.2 gm/dL (13.0-17.5); Lymphocytes # (A) 1.4 k/uL (1.0-4.8); Lymphocytes % (A) 11 %; MCHC 33.8 g/dL (31.0-37.0); MCV 97.8 fL (80.0-100.0); Mean Platelet Volume 9.5; Monocytes # (A) 0.8 k/uL (0-1.0); Monocytes % (A) 6 %; Neutrophils # (A) 9.8 k/uL (1.3-7.7); Neutrophils % (A) 76 %; Platelet Count 291 k/uL (150-450); RBC 3.39 m/uL (4.30-5.90); RDW 13.3 % (11.5-15.5); WBC 12.9 k/uL (3.8-10.6)
[2021-05-17 10:15] LABS: Albumin 3.8 g/dL (3.5-5.0); Calcium 9.2 mg/dL (8.4-10.2); Magnesium 2.3 mg/dL (1.6-2.3); Phosphorus 5.7 mg/dL (2.5-4.5); Potassium 5.1 mmol/L (3.5-5.1); Total Bilirubin 0.3 mg/dL (0.2-1.3); Total Protein 6.3 g/dL (6.3-8.2)
--- NOTE | 2021-05-17 10:31 | P.PN ---
Subjective Progress Note Date: 05/17/21 Principal diagnosis: Chest discomfort This is an 81-year-old gentleman with coronary artery disease and prior revascularization as well as paroxysmal atrial fibrillation as well as chronic kidney disease as well as history of ischemic cardiomyopathy presented to the hospital with symptoms of nausea and we consulted to see the patient for chest discomfort was was atypical for angina. We advised a conservative medical approach and also obtaining an echocardiogram. The echo revealed impaired LV function was EF around 35%. The echo is similar to prior echo from September 2020 . The patient was seen this morning. He denies any symptoms of chest pain or chest discomfort. His mentation seems to be better and he was not as confused as yesterday. Hemodynamically he is stable was soft the blood pressure but above 90 mmHg. Objective - Vital Signs Vital signs: Vital Signs Temp 98.3 F 05/17/21 09:15 Pulse 80 05/17/21 09:15 Resp 18 05/17/21 09:15 BP 92/44 05/17/21 09:15 Pulse Ox 98 05/17/21 09:15 Intake & Output 05/16/21 05/17/21 05/17/21 18:59 06:59 18:59 Intake Total 360 300 Balance 360 300 Weight 69.5 kg 77 kg Intake: Oral 360 300 Other: # Voids 1 1 - Constitutional General appearance: Present: no acute distress - Respiratory Respiratory: bilateral: diminished - Cardiovascular Heart sounds: normal: S1, S2 - Labs CBC & Chem 7: 05/17/21 09:32 05/16/21 06:21 Labs: Abnormal Lab Results - Last 24 Hours (Table) 05/17/21 Range/Units 09:32 WBC 12.9 H (3.8-10.6) k/uL RBC 3.39 L (4.30-5.90) m/uL Hgb 11.2 L (13.0-17.5) gm/dL Hct 33.2 L (39.0-53.0) % Neutrophils # 9.8 H (1.3-7.7) k/uL Assessment and Plan Assessment: Assessment #1 atypical chest discomfort which has resolved #2 coronary artery disease #3 ischemic cardiomyopathy #4 paroxysmal atrial fibrillation Plan #1 continue the current medical regimen #2 continue the conservative medical approach #3 follow-up with the patient
--- NOTE | 2021-05-17 11:11 | P.PN ---
Subjective Progress Note Date: 05/17/21 Principal diagnosis: This 81-year-old male with ESRD on dialysis Wednesday. He came in with nausea vomiting chest pain. He missed 1 dialysis treatment at his admi ssion. He was dialyzed yesterday and again is on dialysis today because of possible fluid overload. He remains on nasal cannula oxygen but he uses that chronically even at home. Acidosis is significant for coronary artery disease, chronic atrial fibrillation, peripheral vascular disease. Currently on dialysis and he is awake alert and cc feeling better. Denies shortness of breath, is on oxygen via nasal cannula Objective - Vital Signs Vital signs: Vital Signs Temp 98.3 F 05/17/21 09:15 Pulse 80 05/17/21 09:15 Resp 18 05/17/21 09:15 BP 92/44 05/17/21 09:15 Pulse Ox 98 05/17/21 09:15 Intake & Output 05/16/21 05/17/21 05/17/21 18:59 06:59 18:59 Intake Total 360 300 Balance 360 300 Weight 69.5 kg 77 kg Intake: Oral 360 300 Other: # Voids 1 1 On examination awake alert oriented. HEENT exam no JVP neck is supple no facial asymmetry Lungs clear to auscultation good air entry bilaterally Heart sounds unremarkable for any murmur rub gallop in atrial fibrillation Abdomen soft nontender Extremity exam was no edema Neurologically awake alert oriented. No focal motor deficit - Labs CBC & Chem 7: 05/17/21 09:32 05/17/21 09:32 Labs: Abnormal Lab Results - Last 24 Hours (Table) 05/17/21 05/17/21 Range/Units 09:32 09:32 WBC 12.9 H (3.8-10.6) k/uL RBC 3.39 L (4.30-5.90) m/uL Hgb 11.2 L (13.0-17.5) gm/dL Hct 33.2 L (39.0-53.0) % Neutrophils # 9.8 H (1.3-7.7) k/uL BUN 46 H (9-20) mg/dL Creatinine 8.14 H* (0.66-1.25) mg/dL Glucose 122 H (74-99) mg/dL Phosphorus 5.7 H (2.5-4.5) mg/dL AST 15 L (17-59) U/L Assessment and Plan Assessment: Impression 1. ESRD on dialysis Wednesday. Currently being dialyzed today as well as an x-ray dialysis yesterday. Ultrafiltration goal is 1.5 L over 3 hours 15 minutes today. So far stable 2. Admitted with chest shortness of breath. Improved 3. Anemia of ESRD with hemoglobin 11.2 slightly about target target range being 10-11 4. History of coronary artery disease and paroxysmal atrial fibrillation., His ischemic cardiomyopathy Recommendation . Patient is stable from the nephrological perspective to be discharged
[2021-05-17] MEDS: ONDANSETRON 4 MG/2 ML VIAL IVP PRN (12:32)
[2021-05-17] MEDS ORDERED: ACETAMINOPHEN TAB 325 MG TAB PO PRN (14:35)
[2021-05-17] MEDS: ALPRAZolam 0.25 MG TAB PO PRN (19:40)
--- NOTE | 2021-05-17 22:51 | P.PN ---
Subjective Progress Note Date: 05/17/21 Principal diagnosis: ESRD on hemodialysis Wednesday, , Wednesday Elevated troponins, possibly secondary to chronic renal disease 81-year-old male with significant past medical history of end-stage renal disease on hemodialysis Wednesday, , and Saturdays, ischemic cardiomyopathy, paroxysmal atrial fibrillation, coronary artery disease with previous stents, hyperlipidemia, history of GI bleeds, hypertension, history of myocardial infarction, chronic anemia, and several other comorbidities. Patient had extensive diagnostic workup in the emergency department revealing worsening kidney function, patient missed dialysis on Wednesday, due to chest discomfort with associated shortness of breath started on Wednesday was unable to attend dialysis treatment. Patient noted to have elevated BUN and creatinine, elevated troponins, elevated BNP, chest x-ray reviewed possible mild interstitial pneumonia. Patient is admitted to the hospital with worsening kidney function, elevated troponins, and increasing shortness of breath. Consultation with cardiology for elevated troponins and chest discomfort for rule out unstable angina; consultation with nephrology for hemodialysis and worsening kidney function. 05/15/2021 Patient seen and examined at bedside. Patient noted to have mild shortness of breath with few word sentences. Patient states over the last 3 days chest discomfort with associated shortness of breath had progressively worsening, patient states was unable to attend dialysis due to chest discomfort and shortness of breath. Currently patient denies chest pain or palpitations at this time. Vital signs and diagnostic testing results reviewed. Treatment plan discussed with patient and nursing staff. 05/16/2021 Patient seen and examined at bedside. Patient has improvement with shortness of breath and breathing status. Patient had hemodialysis yesterday per nephrology's orders. Patient seen by a cardiology no further headache workup noted. Patient had overt episodes of anxiety throughout the night and nausea; patient to be given antiemetics and anti-lytics as needed for anxiety and nausea. Vital signs and diagnostic testing reviewed 05/17/2021 Patient is currently complaining of generalized pain. Back pain neck pain and l eg pain. Patient underwent hemodialysis today. No complaints of chest pain shortness of breath is much improved. Patient has been afebrile. No cough or sputum production. Laboratory data showed WBC 12.9 hemoglobin 11.1 platelets 291 BUN 46 and creatinine 8.14 Mentation is better compared to yesterday. Blood pressure is 94/60 today. Nephrology and cardiology on board. Current medications reviewed. Objective - Vital Signs Vital signs: Vital Signs Temp 97.6 F 05/17/21 16:00 Pulse 93 05/17/21 16:00 Resp 18 05/17/21 16:00 BP 100/60 05/17/21 16:00 Pulse Ox 93 L 05/17/21 16:00 Intake & Output 05/16/21 05/17/21 05/17/21 18:59 06:59 18:59 Intake Total 360 780 Balance 360 780 Weight 69.5 kg 77 kg Intake: Oral 360 780 Other: # Voids 1 1 - Exam PHYSICAL EXAMINATION: Patient is lying in the bed comfortably, no acute distress, awake alert and oriented.confused. HEENT: Normocephalic. Neck is supple. Pupils reactive. Nostrils clear. Oral cavity is moist. Neck reveals no JVD, carotid bruits, or thyromegaly. CHEST EXAMINATION: Trachea is central. Symmetrical expansion. Bibasilar diminished sounds.. Lung fish clear to auscultation and percussion. CARDIAC: Normal S1, S2 with no gallops. No murmurs ABDOMEN: Soft. Bowel sounds normal. No organomegaly. No abdominal bruits. Extremities: reveal no edema. No clubbing or cyanosis Neurologically awake, alert, oriented x2-3 with well-coordinated movements. No focal deficits noted Skin: No rash or skin lesions. Psychiatric: Coperative. Could not be assessed completely. Musculoskeletal: No joint swelling or deformity. Normal range of motion. - Labs CBC & Chem 7: 05/17/21 09:32 05/17/21 09:32 Labs: Abnormal Lab Results - Last 24 Hours (Table) 05/17/21 05/17/21 Range/Units 09:32 09:32 WBC 12.9 H (3.8-10.6) k/uL RBC 3.39 L (4.30-5.90) m/uL Hgb 11.2 L (13.0-17.5) gm/dL Hct 33.2 L (39.0-53.0) % Neutrophils # 9.8 H (1.3-7.7) k/uL BUN 46 H (9-20) mg/dL Creatinine 8.14 H* (0.66-1.25) mg/dL Glucose 122 H (74-99) mg/dL Phosphorus 5.7 H (2.5-4.5) mg/dL AST 15 L (17-59) U/L Assessment and Plan Assessment: Chest discomfort, atypical in nature. ruled out ACS Dyspnea, possibly related to missed dialysis on Wednesday Elevated troponins Ischemic cardiomyopathy Elevated BUN and creatinine, dependent on hemodialysis Wednesday, and Wednesday Paroxysmal atrial fibrillation, not on anticoagulation therapy due to history of GI bleed Coronary artery disease with cardiac catheterization and stents Hyperlipidemia Hypertension History of gastrointestinal bleeding Anxiety Nicotine dependence DO NOT RESUSCITATE Plan: Atypical chest pain, with elevated troponins; patient was seen by cardiology and recommends conservative therapy.. Twelve-lead EKG no acute changes. Holding on anticoagulation therapy due to history of gastrointestinal bleeding Acute on chronic kidney disease, elevated BUN and creatinine possibly due to missed dialysis on Wednesday. Paroxysmal atrial fibrillation patient underwent hemodialysis today. Continue to monitor vital signs of diagnostic testing Continue home medications Further recommendations come based on patient's clinical condition Hopeful discharge in 24-48 hours Time with Patient: Greater than 30
[2021-05-18] MEDS: CALCIUM ACETATE 667 MG TAB PO SCH ×2 (06:14→12:23)
[2021-05-18] MEDS: ATORVASTATIN 40 MG TAB PO SCH (08:23)
[2021-05-18] MEDS: ASPIRIN 81 MG PO SCH (08:23)
[2021-05-18] MEDS: PANTOPRAZOLE 40 MG TABLET PO SCH (08:23)
[2021-05-18] MEDS: FOLIC ACID-VIT B COMPLEX-VIT C 1 CAP PO SCH (08:24)
[2021-05-18] MEDS: VIT A,C & E-LUTEIN-MINERALS 1 EACH TAB PO SCH (08:24)
[2021-05-18 08:31] VITALS: RESP 18
--- NOTE | 2021-05-18 08:39 | P.PN ---
Subjective Progress Note Date: 05/18/21 Principal diagnosis: Chest discomfort This is an 81-year-old gentleman with coronary artery disease and prior revascularization as well as paroxysmal atrial fibrillation as well as chronic kidney disease as well as history of ischemic cardiomyopathy presented to the hospital with symptoms of nausea and we consulted to see the patient for chest discomfort was was atypical for angina. We advised a conservative medical approach and also obtaining an echocardiogram. The echo revealed impaired LV function was EF around 35%. The echo is similar to prior echo from September 2020 . The patient was seen this morning. He is feeling overall better. He denies any symptoms of chest pain or chest discomfort. Pressure has been marginal and with that being saved I'm going to decrease the dose of metoprolol to 12.5 mg by mouth twice a day. Continue the rest of the current medical regimen. Objective - Vital Signs Vital signs: Vital Signs Temp 97.5 F L 05/18/21 08:20 Pulse 91 05/18/21 08:20 Resp 18 05/18/21 08:20 BP 106/53 05/18/21 08:20 Pulse Ox 96 05/18/21 08:20 Intake & Output 05/17/21 05/18/21 05/18/21 18:59 06:59 18:59 Intake Total 898 240 658 Balance 898 240 658 Weight 66.9 kg Intake: Oral 898 240 658 Other: # Voids 1 - Constitutional General appearance: Present: no acute distress - Respiratory Respiratory: bilateral: diminished - Cardiovascular Heart sounds: normal: S1, S2 - Labs CBC & Chem 7: 05/17/21 09:32 05/17/21 09:32 Labs: Abnormal Lab Results - Last 24 Hours (Table) 05/17/21 05/17/21 Range/Units 09:32 09:32 WBC 12.9 H (3.8-10.6) k/uL RBC 3.39 L (4.30-5.90) m/uL Hgb 11.2 L (13.0-17.5) gm/dL Hct 33.2 L (39.0-53.0) % Neutrophils # 9.8 H (1.3-7.7) k/uL BUN 46 H (9-20) mg/dL Creatinine 8.14 H* (0.66-1.25) mg/dL Glucose 122 H (74-99) mg/dL Phosphorus 5.7 H (2.5-4.5) mg/dL AST 15 L (17-59) U/L Assessment and Plan Assessment: Assessment #1 atypical chest discomfort which has resolved #2 coronary artery disease #3 ischemic cardiomyopathy #4 paroxysmal atrial fibrillation Plan #1 continue the current medical regimen #2 decrease the dose of metoprolol
[2021-05-18 08:53] LABS: Calcium 9.5 mg/dL (8.4-10.2); Potassium 4.4 mmol/L (3.5-5.1)
[2021-05-18 08:57] LABS: Basophils # (A) 0.1 k/uL (0-0.2); Basophils % (A) 0 %; Eosinophils # (A) 0.4 k/uL (0-0.7); Eosinophils % (A) 3 %; HCT 35.2 % (39.0-53.0); HGB 11.8 gm/dL (13.0-17.5); Lymphocytes # (A) 1.8 k/uL (1.0-4.8); Lymphocytes % (A) 13 %; MCH 32.6 pg (25.0-35.0); MCHC 33.5 g/dL (31.0-37.0); MCV 97.5 fL (80.0-100.0); Monocytes % (A) 7 %; Neutrophils # (A) 10.4 k/uL (1.3-7.7); Neutrophils % (A) 74 %; Platelet Count 320 k/uL (150-450); RBC 3.61 m/uL (4.30-5.90); RDW 13.4 % (11.5-15.5); WBC 14.1 k/uL (3.8-10.6)
[2021-05-18] MEDS ORDERED: METOPROLOL TARTRATE 12.5 MG TAB PO SCH (09:00)
--- NOTE | 2021-05-18 11:54 | P.PN ---
Subjective Progress Note Date: 05/18/21 Principal diagnosis: This 81-year-old male with ESRD on dialysis Wednesday. He came in with nausea vomiting chest pain. He missed 1 dialysis treatment at his admi ssion. He was dialyzed yesterday and again is on dialysis today because of possible fluid overload. He remains on nasal cannula oxygen but he uses that chronically even at home. Acidosis is significant for coronary artery disease, chronic atrial fibrillation, peripheral vascular disease. Denies shortness of breath, is on oxygen via nasal cannula. He has a good appetite no cramps no dizziness. No fever chills. No abdominal pain. Objective - Vital Signs Vital signs: Vital Signs Temp 97.5 F L 05/18/21 08:20 Pulse 91 05/18/21 08:20 Resp 18 05/18/21 08:20 BP 106/53 05/18/21 08:20 Pulse Ox 96 05/18/21 08:20 Intake & Output 05/17/21 05/18/21 05/18/21 18:59 06:59 18:59 Intake Total 898 240 658 Balance 898 240 658 Weight 66.9 kg Intake: Oral 898 240 658 Other: # Voids 1 On examination awake alert oriented. HEENT exam no JVP neck is supple no facial asymmetry Lungs clear to auscultation good air entry bilaterally Heart sounds unremarkable for any murmur rub gallop in atrial fibrillation Abdomen soft nontender Extremity exam was no edema Neurologically awake alert oriented. No focal motor deficit - Labs CBC & Chem 7: 05/18/21 08:13 05/18/21 08:13 Labs: Abnormal Lab Results - Last 24 Hours (Table) 05/18/21 05/18/21 Range/Units 08:13 08:13 WBC 14.1 H (3.8-10.6) k/uL RBC 3.61 L (4.30-5.90) m/uL Hgb 11.8 L (13.0-17.5) gm/dL Hct 35.2 L (39.0-53.0) % Neutrophils # 10.4 H (1.3-7.7) k/uL Sodium 136 L (137-145) mmol/L Chloride 96 L (98-107) mmol/L BUN 30 H (9-20) mg/dL Creatinine 5.98 H (0.66-1.25) mg/dL Glucose 122 H (74-99) mg/dL Assessment and Plan Assessment: Impression 1. ESRD on dialysis Wednesday. Had dialysis on Wednesday and Wednesday both and is much better since then. 2. Admitted with chest shortness of breath. Improved 3. Anemia of ESRD with hemoglobin 11.8, target range being 10-11 4. History of coronary artery disease and paroxysmal atrial fibrillation., His ischemic cardiomyopathy Recommendation . Patient is stable from the nephrological perspective to be discharged
[2021-05-18 12:29] VITALS: BP 138/62; PULSE 77; TEMP 96.9
== END 2021-05-18 14:49 | disposition home or self-care (01) | DRG 313 ==
LOC: EC 19:37 → 3SCARD 21:41
PROVIDERS: ADMIT Family Medicine; ATTEND Family Medicine
PROC: 5A1D70Z Performance of Urinary Filtration, Intermittent, Less than 6 Hours Per Day (ICD-10-PCS; 2021-05-15)
PROC: 5A1D70Z Performance of Urinary Filtration, Intermittent, Less than 6 Hours Per Day (ICD-10-PCS; principal; 2021-05-17)
PROC: 5A1D70Z Performance of Urinary Filtration, Intermittent, Less than 6 Hours Per Day (ICD-10-PCS; 2021-05-18)
DX: R07.89 Other chest pain (principal); N18.6 End stage renal disease; E87.2 Acidosis; I13.2 Hypertensive heart and chronic kidney disease with heart failure and with stage 5 chronic kidney disease, or end stage renal disease; I48.20 Chronic atrial fibrillation, unspecified; N17.9 Acute kidney failure, unspecified; R79.89 Other specified abnormal findings of blood chemistry; R07.9 Chest pain, unspecified; Z20.822 Contact with and (suspected) exposure to COVID-19; D63.1 Anemia in chronic kidney disease; E78.5 Hyperlipidemia, unspecified; I50.9 Heart failure, unspecified; I73.9 Peripheral vascular disease, unspecified; F17.210 Nicotine dependence, cigarettes, uncomplicated; F41.9 Anxiety disorder, unspecified; H54.40 Blindness, one eye, unspecified eye; I25.10 Atherosclerotic heart disease of native coronary artery without angina pectoris; I25.2 Old myocardial infarction; D50.9 Iron deficiency anemia, unspecified; K57.90 Diverticulosis of intestine, part unspecified, without perforation or abscess without bleeding; R09.02 Hypoxemia; I25.5 Ischemic cardiomyopathy; I45.10 Unspecified right bundle-branch block; E87.70 Fluid overload, unspecified; I48.0 Paroxysmal atrial fibrillation; M89.9 Disorder of bone, unspecified; Z66 Do not resuscitate; Z79.82 Long term (current) use of aspirin; Z79.899 Other long term (current) drug therapy; Z87.01 Personal history of pneumonia (recurrent); Z87.19 Personal history of other diseases of the digestive system; Z95.5 Presence of coronary angioplasty implant and graft; Z96.1 Presence of intraocular lens; Z98.41 Cataract extraction status, right eye; Z98.42 Cataract extraction status, left eye; Z99.2 Dependence on renal dialysis
CPT/HCPCS: 36415; 71046; 80048; 80053; 80061; 82550; 83690; 83735; 83880; 84100; 84484; 85025; 85610; 85730; 90935; 93005; 93306; 94760; 99285

== ENCOUNTER 2021-05-22 12:50 | Inpatient (IN) | payer MEDICARE ==
[2021-05-22] MEDS ORDERED: NITROGLYCERIN OINT 1 INCH/GM PACKET TOPICAL STA (13:00)
--- NOTE | 2021-05-22 13:04 | ED ---
General Adult HPI - General Stated complaint: chest pain Time Seen by Provider: 05/22/21 12:50 Source: patient, RN notes reviewed, old records reviewed - History of Present Illness Initial comments: This is an 81-year-old male who presents emergency department with past medical history significant for dialysis hypertension and coronary artery stents patient also states he has a history of atrial fibrillation. Patient was at dialysis he was about three quarters of the way through through dialysis when he started to spray some chest pain patient states the chest pain lasted for an hour and a half. Patient states he was also feeling short of breath at the time. Patient states currently he barely has any chest pain at all. Patient denies any nausea or vomiting. Patient denies any radiation of the pain. According to EMS his heart rate was between 130 and 170 and irregular. Patient calmed down in the ambulance and the pain subsided in the heavy breathing decreased as well. Patient states now he only has a very slight chest pain. Patient denies any other symptoms at this time. Patient denies any recent fever chills or cough. Patient denies any headache patient denies any lightheadedness or dizziness. Patient denies any new swelling to the legs or calf tenderness. - Related Data Home Medications Medication Instructions Recorded Confirmed Atorvastatin Calcium [Lipitor] 40 mg PO DAILY 07/02/20 05/22/21 Pantoprazole [Protonix] 40 mg PO DAILY 07/20/20 05/22/21 Vit C/E/Zn/Coppr/Lutein/Zeaxan 1 cap PO BID 10/04/20 05/22/21 [Preservision Areds 2 Softgel] lisinopriL [Zestril] 5 mg PO DAILY 10/04/20 05/22/21 Aspirin EC [Ecotrin Low Dose] 81 mg PO DAILY 05/14/21 05/22/21 Lidocaine-Prilocaine Cream [Emla 1 applic TOPICAL DAILY PRN 05/14/21 05/22/21 Cream 2.5%/2.5%] Nephro-Fred 0.8mg 1 tab PO DAILY 05/14/21 05/22/21 Calcium Acetate [PhosLo] 667 mg PO AC-TID 05/22/21 05/22/21 Metoprolol Tartrate [Lopressor] 12.5 mg PO BID 05/22/21 05/22/21 Allergies Allergy/AdvReac Type Severity Reaction Status Date / Time No Known Allergies Allergy Verified 05/22/21 14:27 Review of Systems ROS Statement: Those systems with pertinent positive or pertinent negative responses have been documented in the HPI. ROS Other: All systems not noted in ROS Statement are negative. Past Medical History Past Medical History: Atrial Fibrillation, Coronary Artery Disease (CAD), Chest Pain / Angina, Heart Failure, GI Bleed, Hyperlipidemia, Hypertension, Myocardial Infarction ([place]), Pneumonia, Renal Disease, Vascular Disorder Additional Past Medical History / Comment(s): 10/04/20 US TO CHECK FOR PATENCY OF DIALYSIS SHUNT. JUL 2020 ADMITTED FOR ANEMIA. ESRD with dialysis FOR MANY YEARS (, , ). 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 Iron deficiency anemia, Mineral bone disease, diverticulosis, colon polyp (removed), PVD , neck fx as a young person with seizures following last one years ago. Last Myocardial Infarction Date:: 2013 History of Any Multi-Drug Resistant Organisms: None Reported Past Surgical History: Heart Catheterization With Stent Additional Past Surgical History / Comment(s): 07/24/20 EGD. Bilateral cataract removal with lens implants, shunt L arm. Past Anesthesia/Blood Transfusion Reactions: No Reported Reaction Date of Last Stent Placement:: 2007 Past Psychological History: No Psychological Hx Reported, Anxiety Additional Psychological History / Comment(s): Pt resides with his michaelleSarai. Daughter manages his meds. He has a cane which he uses prn. He is independent with his ADLs. He drives a car. He has no home care agency. Smoking Status: Current every day smoker, Light tobacco smoker Past Alcohol Use History: None Reported Additional Past Alcohol Use History / Comment(s): Pt started smoking in 1955. Patient smokes 6-7 cigarettes a day. USING NICOTINE PATCH Past Drug Use History: None Reported - Past Family History Father Family Medical History: Myocardial Infarction ([place]), Musculoskeletal Disorder Additional Family Medical History / Comment(s): Father at age 59 of a [place] Mother Family Medical History: CVA/TIA Additional Family Medical History / Comment(s): Mother of a brain hemorrage. General Exam - General Exam Comments Initial Comments: GENERAL: Patient is well-developed and well-nourished. Patient is nontoxic and well- hydrated and is in mild distress. ENT: Neck is soft and supple. No significant lymphadenopathy is noted. Oropharynx is clear. Moist mucous membranes. Neck has full range of motion without e liciting any pain. EYES: The sclera were anicteric and conjunctiva were pink and moist. Extraocular movements were intact and pupils were equal round and reactive to light. Eyelids were unremarkable. PULMONARY: Unlabored respirations. Good breath sounds bilaterally. No audible rales rhonchi or wheezing was noted. CARDIOVASCULAR: Patient is tachycardic at about 130 beats a minute and irregular ABDOMEN: Soft and nontender with normal bowel sounds. SKIN: Skin is clear with no lesions or rashes and otherwise unremarkable. NEUROLOGIC: Patient is alert and oriented x3. Cranial nerves II through XII are grossly intact. Motor and sensory are also intact. Normal speech, volume and content. Symmetrical smile. MUSCULOSKELETAL: Normal extremities with adequate strength and full range of motion. LYMPHATICS: No significant lymphadenopathy is noted PSYCHIATRIC: Normal psychiatric evaluation. Course Vital Signs 05/22/21 05/22/21 05/22/21 12:57 13:52 14:38 Temperature 97.8 F Pulse Rate 138 H 135 H 115 H Respiratory 24 20 18 Rate Blood Pressure 138/79 115/65 130/66 O2 Sat by Pulse 95 100 98 Oximetry Medical Decision Making - Medical Decision Making EKG shows atrial fibrillation with a rapid ventricular response at 146 bpm QRS is 146 QT interval 310 QTC is 43. Patient's EKG shows no significant ST segment elevation patient has right bundle branch block Patient was started on Cardizem after Cardizem bolus. Patient's troponin was mildly elevated and that is typical of this patient. Patient's BNP is also elevated which is also typical for this patient. Chest x-ray shows a little pulmonary edema. I spoke with Diane for Dr. Bowen's office he agreed to admit the patient admitted the patient wrote admitting orders I consulted cardiology. Patient states he is already on Coumadin. - Lab Data Result diagrams: 05/22/21 13:16 05/22/21 13:16 Lab Results 05/22/21 05/22/21 05/22/21 Range/Units 13:16 13:16 13:16 WBC 13.1 H (3.8-10.6) k/uL RBC 3.61 L (4.30-5.90) m/uL Hgb 12.0 L (13.0-17.5) gm/dL Hct 34.5 L (39.0-53.0) % MCV 95.5 (80.0-100.0) fL MCH 33.2 (25.0-35.0) pg MCHC 34.7 (31.0-37.0) g/dL RDW 12.9 (11.5-15.5) % Plt Count 255 (150-450) k/uL MPV 9.1 Neutrophils % 78 % Lymphocytes % 12 % Monocytes % 5 % Eosinophils % 3 % Basophils % 0 % Neutrophils # 10.1 H (1.3-7.7) k/uL Lymphocytes # 1.6 (1.0-4.8) k/uL Monocytes # 0.7 (0-1.0) k/uL Eosinophils # 0.4 (0-0.7) k/uL Basophils # 0.1 (0-0.2) k/uL PT 10.8 (9.0-12.0) sec INR 1.0 (<1.2) APTT 25.2 (22.0-30.0) sec Sodium 137 (137-145) mmol/L Potassium 3.8 (3.5-5.1) mmol/L Chloride 94 L (98-107) mmol/L Carbon Dioxide 29 (22-30) mmol/L Anion Gap 14 mmol/L BUN 17 (9-20) mg/dL Creatinine 3.20 H (0.66-1.25) mg/dL Est GFR (CKD-EPI)AfAm 20 (>60 ml/min/1.73 sqM) Est GFR (CKD-EPI)NonAf 17 (>60 ml/min/1.73 sqM) Glucose 134 H (74-99) mg/dL Calcium 9.1 (8.4-10.2) mg/dL Magnesium 1.8 (1.6-2.3) mg/dL Total Bilirubin 0.5 (0.2-1.3) mg/dL AST 24 (17-59) U/L ALT 11 (4-49) U/L Alkaline Phosphatase 107 (38-126) U/L Troponin I (0.000-0.034) ng/mL NT-Pro-B Natriuret Pep pg/mL Total Protein 7.1 (6.3-8.2) g/dL Albumin 4.1 (3.5-5.0) g/dL Coronavirus (PCR) (Not Detectd) 05/22/21 05/22/21 05/22/21 Range/Units 13:16 13:16 15:25 WBC (3.8-10.6) k/uL RBC (4.30-5.90) m/uL Hgb (13.0-17.5) gm/dL Hct (39.0-53.0) % MCV (80.0-100.0) fL MCH (25.0-35.0) pg MCHC (31.0-37.0) g/dL RDW (11.5-15.5) % Plt Count (150-450) k/uL MPV Neutrophils % % Lymphocytes % % Monocytes % % Eosinophils % % Basophils % % Neutrophils # (1.3-7.7) k/uL Lymphocytes # (1.0-4.8) k/uL Monocytes # (0-1.0) k/uL Eosinophils # (0-0.7) k/uL Basophils # (0-0.2) k/uL PT (9.0-12.0) sec INR (<1.2) APTT (22.0-30.0) sec Sodium (137-145) mmol/L Potassium (3.5-5.1) mmol/L Chloride (98-107) mmol/L Carbon Dioxide (22-30) mmol/L Anion Gap mmol/L BUN (9-20) mg/dL Creatinine (0.66-1.25) mg/dL Est GFR (CKD-EPI)AfAm (>60 ml/min/1.73 sqM) Est GFR (CKD-EPI)NonAf (>60 ml/min/1.73 sqM) Glucose (74-99) mg/dL Calcium (8.4-10.2) mg/dL Magnesium (1.6-2.3) mg/dL Total Bilirubin (0.2-1.3) mg/dL AST (17-59) U/L ALT (4-49) U/L Alkaline Phosphatase (38-126) U/L Troponin I 0.070 H* (0.000-0.034) ng/mL NT-Pro-B Natriuret Pep 21300 pg/mL Total Protein (6.3-8.2) g/dL Albumin (3.5-5.0) g/dL Coronavirus (PCR) Not Detected (Not Detectd) Disposition Clinical Impression: Chest pain, Atrial fibrillation with rapid ventricular response Disposition: ADMITTED IP TO THIS HOSP Referrals: Edward Bowen MD [Primary Care Provider] - 1-2 days Time of Disposition: 16:04
[2021-05-22] MEDS ORDERED: DILTIAZEM DRIP BOLUS FROM BAG 1 MG SOLN IV ONE (13:17)
[2021-05-22] MEDS: DILTIAZEM 125 MG in SODIUM CHLORIDE 0.9% 100 ML IV SCH ×2 (13:44→23:34)
--- NOTE | 2021-05-22 13:47 | XR ---
EXAMINATION TYPE: XR chest 2V DATE OF EXAM: 05/22/2021 COMPARISON: Chest x-ray from 6 days ago. HISTORY: Chest pain and difficulty in breathing. TECHNIQUE: Frontal and lateral views of the chest are obtained. FINDINGS: There is increasing bilateral multifocal opacities on background chronic parenchymal bernal e. The cardiac silhouette size is upper limits of normal currently with atherosclerotic aorta. Surg ical clips left axillary region redemonstrated The osseous structures are intact. IMPRESSION: Chronic changes with development of new bilateral multifocal faint opacities. Correlate for covid-19 infection in the current environment.
[2021-05-22 13:55] LABS: Basophils # (A) 0.1 k/uL (0-0.2); Basophils % (A) 0 %; Eosinophils # (A) 0.4 k/uL (0-0.7); Eosinophils % (A) 3 %; HCT 34.5 % (39.0-53.0); Lymphocytes # (A) 1.6 k/uL (1.0-4.8); Lymphocytes % (A) 12 %; MCH 33.2 pg (25.0-35.0); MCHC 34.7 g/dL (31.0-37.0); MCV 95.5 fL (80.0-100.0); Mean Platelet Volume 9.1; Monocytes # (A) 0.7 k/uL (0-1.0); Monocytes % (A) 5 %; Neutrophils # (A) 10.1 k/uL (1.3-7.7); Neutrophils % (A) 78 %; Platelet Count 255 k/uL (150-450); RBC 3.61 m/uL (4.30-5.90); RDW 12.9 % (11.5-15.5); WBC 13.1 k/uL (3.8-10.6)
[2021-05-22 14:00] LABS: Partial Thromboplastin Time 25.2 sec (22.0-30.0); Prothrombin Time 10.8 sec (9.0-12.0)
[2021-05-22 14:24] LABS: Albumin 4.1 g/dL (3.5-5.0); Calcium 9.1 mg/dL (8.4-10.2); Total Bilirubin 0.5 mg/dL (0.2-1.3); Total Protein 7.1 g/dL (6.3-8.2)
[2021-05-22 14:25] LABS: Magnesium 1.8 mg/dL (1.6-2.3); Potassium 3.8 mmol/L (3.5-5.1)
[2021-05-22] MEDS ORDERED: Magnesium Replacement Protocol 1 EACH MISC MISCELLANE PRN (16:00)
[2021-05-22] MEDS ORDERED: NITROGLYCERIN SL TABS 0.4 MG TAB SUBLINGUAL PRN (16:04)
[2021-05-22] MEDS ORDERED: HEPARIN SODIUM 1,000 UN/ML (10ML VL) IV ONE (16:06)
[2021-05-22] MEDS ORDERED: HEPARIN SOD,PORK IN 0.45% NACL 25,000 UNIT in 0.45% NACL 1 250ML.BAG IV SCH (16:15)
[2021-05-22] MEDS ORDERED: LIDOCAINE-PRILOCAINE 2.5-2.5% CREAM 5 GM TUBE TOPICAL PRN (16:38)
[2021-05-22] MEDS: MAGNESIUM SULFATE-D5W PMX 1 GM in DEXTROSE/WATER 1 100ML.BAG IVPB SCH ×2 (17:28→20:45)
--- NOTE | 2021-05-22 18:10 | P.HPIM ---
History of Present Illness H&P Date: 05/22/21 Chief Complaint: Chest discomfort 81-year-old male with significant past medical history of dialysis, hypertension, hyperlipidemia, paroxysmal atrial fibrillation, coronary artery disease with heart catheterization and coronary stents, history of myocardial infarction, history of gastrointestinal bleeding, and several additional comorbidities is admitted to the hospital for chest discomfort with associated atrial fibrillation with rapid ventricular response. Review of diagnostic testing, shows mild leukocytosis, chronic anemia, elevated troponin, possibly secondary to A. fib with RVR, elevated d-dimer, and elevated BNP. Patient has been initiated on Cardizem drip for rate control, heparin drip for anticoagulation therapy, and magnesium replacement for lower limit magnesium. 05/22/2021 Patient is seen and examined in the emergency department. Patient resting comfortably with 2 L of oxygen via nasal cannula. Patient states during dialysis, he began to have chest discomfort and palpitations for 90 minutes duration HAND SINGER arrival to the emergency department. He states decrease in chest pain intensity and breathing has become easier since being in the emergency department. He denies fever, chills, abdominal pain, nausea or vomiting at this time. Patient and family explained treatment, agreeable to treatment plan at this time. Review of Systems Constitutional: Reports fatigue, Reports weakness Cardiovascular: Reports decreased exercise tolerance, Reports dyspnea on exertion, Reports irregular heart beat, Reports palpitations, Reports rapid heart beat, Reports shortness of breath Respiratory: Reports dyspnea, Reports pain on inspiration Gastrointestinal: Reports as per HPI Genitourinary: Reports as per HPI Musculoskeletal: Reports as per HPI Neurological: Reports weakness Psychiatric: Reports as per HPI Endocrine: Reports as per HPI Hematologic/Lymphatic: Reports as per HPI Allergic/Immunologic: Reports as per HPI Past Medical History Past Medical History: Atrial Fibrillation, Coronary Artery Disease (CAD), Chest Pain / Angina, Heart Failure, GI Bleed, Hyperlipidemia, Hypertension, Myocardial Infarction (MT), Pneumonia, Renal Disease, Vascular Disorder Additional Past Medical History / Comment(s): 10/04/20 US TO CHECK FOR PATENCY OF DIALYSIS SHUNT. JUL 2020 ADMITTED FOR ANEMIA. ESRD with dialysis FOR MANY YEARS (, , ). 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 Iron deficiency anemia, Mineral bone disease, diverticulosis, colon polyp (removed), PVD , neck fx as a young person with seizures following last one years ago. Last Myocardial Infarction Date:: 2013 History of Any Multi-Drug Resistant Organisms: None Reported Past Surgical History: Heart Catheterization With Stent Additional Past Surgical History / Comment(s): 07/24/20 EGD. Bilateral cataract removal with lens implants, shunt L arm. Past Anesthesia/Blood Transfusion Reactions: No Reported Reaction Date of Last Stent Placement:: 2007 Past Psychological History: No Psychological Hx Reported, Anxiety Additional Psychological History / Comment(s): Pt resides with his michaelleSarai. Daughter manages his meds. He has a cane which he uses prn. He is independent with his ADLs. He drives a car. He has no home care agency. Smoking Status: Current every day smoker, Light tobacco smoker Past Alcohol Use History: None Reported Additional Past Alcohol Use History / Comment(s): Pt started smoking in 5. Patient smokes 6-7 cigarettes a day. USING NICOTINE PATCH Past Drug Use History: None Reported - Past Family History Father Family Medical History: Myocardial Infarction (MT), Musculoskeletal Disorder Additional Family Medical History / Comment(s): Father at age 59 of a MT Mother Family Medical History: CVA/TIA Additional Family Medical History / Comment(s): Mother of a brain hemorrage. Medications and Allergies Home Medications and Allergies Comment(s): Medications and ALLERGIES reviewed Home Medications Medication Instructions Recorded Confirmed Type Atorvastatin Calcium [Lipitor] 40 mg PO DAILY 07/02/20 05/22/21 History Pantoprazole [Protonix] 40 mg PO DAILY 07/20/20 05/22/21 History Vit C/E/Zn/Coppr/Lutein/Zeaxan 1 cap PO BID 10/04/20 05/22/21 History [Preservision Areds 2 Softgel] lisinopriL [Zestril] 5 mg PO DAILY 10/04/20 05/22/21 History Aspirin EC [Ecotrin Low Dose] 81 mg PO DAILY 05/14/21 05/22/21 History Lidocaine-Prilocaine Cream [Emla 1 applic TOPICAL DAILY PRN 05/14/21 05/22/21 History Cream 2.5%/2.5%] Nephro-Fred 0.8mg 1 tab PO DAILY 05/14/21 05/22/21 History Calcium Acetate [PhosLo] 667 mg PO AC-TID 05/22/21 05/22/21 History Metoprolol Tartrate [Lopressor] 12.5 mg PO BID 05/22/21 05/22/21 History Allergies Allergy/AdvReac Type Severity Reaction Status Date / Time No Known Allergies Allergy Verified 05/22/21 14:27 Physical Exam Vitals: Vital Signs Temp Pulse Resp BP Pulse Ox 05/22/21 14:38 115 H 18 130/66 98 05/22/21 13:52 135 H 20 115/65 100 05/22/21 12:57 97.8 F 138 H 24 138/79 95 Intake and Output 05/22/21 05/22/21 05/22/21 06:59 14:59 22:59 Intake Total 18.667 Balance 18.667 Intake: Intake, IV Titration 18.667 Amount Diltiazem 125 mg In 18.667 Sodium Chloride 0.9% 100 ml @ 5 MG/HR 5 mls/hr IV .Q24H [facility] Rx#:[id number] Other: Weight 68.039 kg - Constitutional General appearance: mild distress - EENT Eyes: EOMI, PERRLA ENT: normal oropharynx Ears: bilateral: normal - Neck Neck: normal ROM Carotids: bilateral: upstroke normal - Respiratory Respiratory: bilateral: diminished (Anterior lung fish), rales (Posterior bases) - Cardiovascular Atrial fibrillation with rapid ventricular response Heart rate: 145 Rhythm: irregularly irregular Heart sounds: normal: S1, S2 radial pulse Peripheral Pulses: bilateral: Normal dorsalis pedis Peripheral Pulses: bilateral: Normal - Gastrointestinal General gastrointestinal: normal bowel sounds - Integumentary Integumentary: pale - Neurologic Neurologic: CNII-XII intact - Musculoskeletal Musculoskeletal: generalized weakness - Psychiatric Psychiatric: A&O x's 3, appropriate affect, intact judgment & insight Results CBC & Chem 7: 05/22/21 13:16 05/22/21 13:16 Labs: Abnormal Lab Results - Last 24 Hours (Table) 05/22/21 05/22/21 05/22/21 Range/Units 13:16 13:16 13:16 WBC 13.1 H (3.8-10.6) k/uL RBC 3.61 L (4.30-5.90) m/uL Hgb 12.0 L (13.0-17.5) gm/dL Hct 34.5 L (39.0-53.0) % Neutrophils # 10.1 H (1.3-7.7) k/uL ESR (0-15) mm/hr D-Dimer (<0.60) mg/L FEU Chloride 94 L (98-107) mmol/L Creatinine 3.20 H (0.66-1.25) mg/dL Glucose 134 H (74-99) mg/dL Troponin I 0.070 H* (0.000-0.034) ng/mL C-Reactive Protein (<1.0) mg/dL 05/22/21 05/22/21 05/22/21 Range/Units 15:47 15:47 15:47 WBC (3.8-10.6) k/uL RBC (4.30-5.90) m/uL Hgb (13.0-17.5) gm/dL Hct (39.0-53.0) % Neutrophils # (1.3-7.7) k/uL ESR 54 H (0-15) mm/hr D-Dimer 1.01 H (<0.60) mg/L FEU Chloride (98-107) mmol/L Creatinine (0.66-1.25) mg/dL Glucose (74-99) mg/dL Troponin I (0.000-0.034) ng/mL C-Reactive Protein 3.4 H (<1.0) mg/dL Chest x-ray: report reviewed CT scan - chest: pending Thrombosis Risk Factor Assmnt - DVT/VTE Prophylaxis DVT/VTE Prophylaxis: Pharmacologic Prophylaxis ordered - Choose All That Apply Any of the Below Risk Factors Present?: No Other Risk Factors: No Each Risk Factor Represents 3 Points: Age 75 years or older Thrombosis Risk Factor Assessment Total Risk Factor Score: 3 Thrombosis Risk Factor Assessment Level: Very Low Risk Assessment and Plan Assessment: Atrial fibrillation with a rapid ventricular response, history of paroxysmal atrial fibrillation Elevated troponin, possibly secondary to A. fib with RVR Elevated d-dimer, will follow-up with CT of the chest Chest x-ray showing possible new bilateral multifocal faint opacities, will follow-up with CAT scan of the chest Chest discomfort, atypical in nature rule out acute coronary syndrome Ischemic cardiomyopathy History of coronary artery disease with heart catheterization and coronary stents History of myocardial infarction End-stage renal disease dependent on hemodialysis Wednesday, , Wednesday Peripheral vascular disease Mineral bone disease History of gastrointestinal bleeding History of recurrent pneumonias Nicotine dependence Mixed anxiety and depression DO NOT RESUSCITATE Plan: Paroxysmal atrial fibrillation with rapid ventricular response, initiated on Cardizem drip for rate control, heparin drip for anticoagulation therapy; consultation with cardiology for recommendations Chest discomfort, rule out ACS., Consultation with cardiology for recommendations Elevated troponin, possibly secondary to A. fib with RVR New bilateral multifocal faint opacities, CT of the chest ordered Elevated d-dimer, CT of the chest ordered Continue to monitor vital signs diagnostic testing Continue home medications Continue medical management Further recommendations come based on patient's clinical condition Time with Patient: Greater than 30
--- NOTE | 2021-05-22 18:58 | CT ---
EXAMINATION TYPE: CT angio chest DATE OF EXAM: 05/22/2021 6:00 PM COMPARISON: Same day chest x-ray HISTORY: Elevated d-dimer. Chest pain. CT DLP: 332.7 mGycm Automated exposure control for dose reduction was used. CONTRAST: CTA scan of the thorax is performed with IV Contrast, patient injected with 80 mL of Isovue 370, pulm onary embolism protocol. . FINDINGS: LUNGS: There are marked centrilobular emphysematous changes bilaterally. Bibasilar atelectasis. There is no pleural effusion or pneumothorax seen. The tracheobronchial tree is patent. CARDIOMEDIASTINUM: There is satisfactory enhancement of the pulmonary artery and its branches, there is no CT evidence for pulmonary embolism. There are no greater than 1 cm hilar or mediastinal lymph nodes. Thoracic aorta normal in caliber with moderate calcified atherosclerotic disease. Cardiac siz e normal. No pericardial effusion is seen. OTHER: Too small to characterize hypodense lesion of the dome of the liver. Marked calcified atheros clerotic disease of the abdominal aorta and visualized major branches. No acute osseous abnormality. IMPRESSION: 1. NO PULMONARY EMBOLISM. 2. NO THORACIC AORTIC ANEURYSM. 3. MARKED CENTRILOBULAR EMPHYSEMA.
[2021-05-22] MEDS: VIT A,C & E-LUTEIN-MINERALS 1 EACH TAB PO SCH (20:43)
[2021-05-22] MEDS: CALCIUM ACETATE 667 MG TAB PO SCH (20:45)
[2021-05-22] MEDS: NITROGLYCERIN OINT 1 INCH/GM PACKET TOPICAL SCH ×2 (20:45→23:34)
[2021-05-22] MEDS ORDERED: METOPROLOL TARTRATE 12.5 MG TAB PO SCH (21:00)
[2021-05-23] MEDS: NITROGLYCERIN OINT 1 INCH/GM PACKET TOPICAL SCH (06:41)
[2021-05-23] MEDS ORDERED: CEFEPIME 2 GM in SODIUM CHLORIDE 0.9% 100 ML IVPB ONE (08:00)
--- NOTE | 2021-05-23 08:23 | P.NPCON ---
History of Present Illness - Reason for Consult Consult date: 05/23/21 end stage renal disease - Chief Complaint Shortness of breath and chest pain - History of Present Illness This is an 81-year-old male known to us with ESRD on dialysis Wednesday. During dialysis he experienced chest pain and was readmitted. He was here just recently on 06-03 and discharged on 05/18/2021, was admitted the time with fluid overload. Yesterday he had a CTA done which ruled out pulmonary embolism. His hemoglobin is 12. Electrolytes are unremarkable. He is known with coronary artery disease a stress test was negative for any stress-induced changes in September 2020. Echocardiogram dated 05/15/2021 shows poor ejection and 30-35%. He does have pulmonary hypertension on the echocardiogram Currently he is pain-free and comfortable. Past Medical History Past Medical History: Atrial Fibrillation, Coronary Artery Disease (CAD), Chest Pain / Angina, Heart Failure, GI Bleed, Hyperlipidemia, Hypertension, Myocardial Infarction (ND), Pneumonia, Renal Disease, Vascular Disorder Additional Past Medical History / Comment(s): 10/04/20 US TO CHECK FOR PATENCY OF DIALYSIS SHUNT. JUL 2020 ADMITTED FOR ANEMIA. ESRD with dialysis FOR MANY YEARS (, , ). 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 Iron deficiency anemia, Mineral bone disease, diverticulosis, colon polyp (removed), PVD , neck fx as a young person with seizures following last one years ago. Last Myocardial Infarction Date:: 2013 History of Any Multi-Drug Resistant Organisms: None Reported Past Surgical History: Heart Catheterization With Stent Additional Past Surgical History / Comment(s): 07/24/20 EGD. Bilateral cataract removal with lens implants, shunt L arm. Past Anesthesia/Blood Transfusion Reactions: No Reported Reaction Date of Last Stent Placement:: 2007 Past Psychological History: No Psychological Hx Reported, Anxiety Additional Psychological History / Comment(s): Pt resides with his michaelleSarai. Daughter manages his meds. He has a cane which he uses prn. He is independent with his ADLs. He drives a car. He has no home care agency. Smoking Status: Current every day smoker, Light tobacco smoker Past Alcohol Use History: None Reported Additional Past Alcohol Use History / Comment(s): Pt started smoking in 5. Patient smokes 6-7 cigarettes a day. USING NICOTINE PATCH Past Drug Use History: None Reported - Past Family History Father Family Medical History: Myocardial Infarction (ND), Musculoskeletal Disorder Additional Family Medical History / Comment(s): Father at age 59 of a ND Mother Family Medical History: CVA/TIA Additional Family Medical History / Comment(s): Mother of a brain hemorrage. Medications and Allergies Home Medications Medication Instructions Recorded Confirmed Type Atorvastatin Calcium [Lipitor] 40 mg PO DAILY 07/02/20 05/22/21 History Pantoprazole [Protonix] 40 mg PO DAILY 07/20/20 05/22/21 History Vit C/E/Zn/Coppr/Lutein/Zeaxan 1 cap PO BID 10/04/20 05/22/21 History [Preservision Areds 2 Softgel] lisinopriL [Zestril] 5 mg PO DAILY 10/04/20 05/22/21 History Aspirin EC [Ecotrin Low Dose] 81 mg PO DAILY 05/14/21 05/22/21 History Lidocaine-Prilocaine Cream [Emla 1 applic TOPICAL DAILY PRN 05/14/21 05/22/21 History Cream 2.5%/2.5%] Nephro-Fred 0.8mg 1 tab PO DAILY 05/14/21 05/22/21 History Calcium Acetate [PhosLo] 667 mg PO AC-TID 05/22/21 05/22/21 History Metoprolol Tartrate [Lopressor] 12.5 mg PO BID 05/22/21 05/22/21 History Allergies Allergy/AdvReac Type Severity Reaction Status Date / Time No Known Allergies Allergy Verified 05/22/21 14:27 Physical Exam Vitals: Vital Signs Temp Pulse Pulse Resp BP BP Pulse Ox 05/23/21 07:22 97 05/23/21 04:00 98.2 F 78 17 119/44 97 05/23/21 02:00 86 18 05/22/21 23:43 98.1 F 84 18 144/54 97 05/22/21 22:32 96 18 142/59 98 05/22/21 17:52 108 H 18 129/66 98 05/22/21 14:38 115 H 18 130/66 98 05/22/21 13:52 135 H 20 115/65 100 05/22/21 12:57 97.8 F 138 H 24 138/79 95 Intake and Output 05/22/21 05/23/21 05/23/21 22:59 06:59 14:59 Intake Total 18.667 252.193 Balance 18.667 252.193 Intake: Intake, IV Titration 18.667 252.193 Amount Diltiazem 125 mg In 18.667 91.5 Sodium Chloride 0.9% 100 ml @ 5 MG/HR 5 mls/hr IV .Q24H [facility] Rx#:[id number] Heparin Sod,Pork in 0.45% 60.693 NaCl 25,000 unit In 0.45 % NaCl 1 250ml.bag @ 12 UNITS/KG/HR 8.165 mls/hr IV .Q24H [facility] Rx#: [id number] Magnesium Sulfate-D5w Pmx 100 1 gm In Dextrose/Water 1 100ml.bag @ 100 mls/hr IVPB Q1H [facility] Rx#: [id number] Other: Voiding Method Urinal Weight 68.039 kg On examination is awake alert oriented comfortable. HEENT exam no JVP neck is supple no facial asymmetry Lungs are clear to auscultation good air entry bilaterally Heart sounds unremarkable for any murmur rub gallop Abdomen soft nontender extremity examination reveals no edema Neurologically awake alert oriented Results - Lab Results Most recent lab results Calcium 9.1 mg/dL (8.4-10.2) 05/22/21 13:16 Magnesium 1.8 mg/dL (1.6-2.3) 05/22/21 13:16 05/22/21 13:16 05/22/21 13:16 Assessment and Plan Assessment: Impression 1. ESRD on dialysis Wednesday. With the fistula in the left upper arm 2. Admitted with chest pain during dialysis yesterday. Known coronary artery disease. Stress test unremarkable in September 2020. Echocardiogram on 06-03 s hows section fraction of 35%. Pulmonary hypertension. CTA negative. 3. Chronic changes on chest x-ray. Covid 19 negative. 4. Anemia of chronic kidney disease hemoglobin above target at 12. Recommendation 1. In the dialysis tomorrow. He'll be dialyzed today and a half hours or ultrafiltration of about 3 L. 2. Monitor labs including CBC calcium phosphorus as needed 3. Cardiology is on the case. Thank you for this consultation and continue to follow closely
[2021-05-23] MEDS: PANTOPRAZOLE 40 MG TABLET PO SCH (08:34)
[2021-05-23] MEDS: ATORVASTATIN 40 MG TAB PO SCH (08:36)
[2021-05-23] MEDS: lisinopriL 5 MG TAB PO SCH (08:36)
[2021-05-23] MEDS: METOPROLOL TARTRATE 25 MG TAB PO SCH ×2 (08:36→21:20)
[2021-05-23] MEDS: ASPIRIN 81 MG PO SCH (08:36)
[2021-05-23] MEDS: VIT A,C & E-LUTEIN-MINERALS 1 EACH TAB PO SCH ×2 (08:36→21:21)
[2021-05-23] MEDS: ISOSORBIDE MONONITRATE ER 30 MG TAB.ER.24H PO SCH (08:36)
[2021-05-23] MEDS: FOLIC ACID-VIT B COMPLEX-VIT C 1 CAP PO SCH (08:37)
[2021-05-23] MEDS: CALCIUM ACETATE 667 MG TAB PO SCH ×3 (08:41→17:18)
[2021-05-23] MEDS ORDERED: ASPIRIN 325 MG TAB PO SCH (09:00)
[2021-05-23] MEDS ORDERED: NON FORMULARY DRUG (Aspirin Ec 81 MG Tablet.Dr) PO SCH (09:00)
--- NOTE | 2021-05-23 09:54 | P.CRDCN ---
History of Present Illness History of present illness: This is a 81-year-old male with a past medical history significant for end-stage renal disease on hemodialysis Wednesday, , and Wednesday, ischemic cardiomyopathy, paroxysmal atrial fibrillation not on anticoagulation secondary to GI bleeding, coronary artery disease with previous PCI to the RCA in 2007, chronic nicotine dependence (currently smokes 2-3 cigarettes per day). Patient f kindras in the office with Dr. Paniagua. We have been asked to see the patient in consultation for atrial fibrillation with rapid ventricular response. Patient examined at the bedside. Patient states he was undergoing dialysis yesterday on 05/22, 30 minutes left of treatment, patient started to have chest pain, he describes it as a pain/pressure. Did have some radiation to his left arm. Non-exertional. He did have symptoms of shortness of breath and nausea. However, he states his shortness of breath and nausea during dialysis are not new. He also had palpitations. EMS was called. Patient was apparently found to have an irregular HR 130-170s. He was brought to the emergency department for further evaluation. He states his chest pain lasted for about 4 hours. He states after arrival to the emergency department and given medication (he is unsure what medication) his chest pain did resolve. He denies any specific aggravating factors. On admission patient was given 10 mg of IV Cardizem bolus and started on Cardizem drip at 15 mg/hr and weaned, also given topical nitroglycerin. Patient was recently admitted on 05/14/2021 chest pain and elevated troponins. Echocardiogram revealed an EF of 35-40%, stage III diastolic dysfunction, mild mitral regurgitation, moderate tricuspid regurgitation, severe pulmonary hypertension with an RVSP 75 mmHg. Prior Echo in June 2020 revealed an EF of 3035%. Patient does have chronic elevated troponins. DIAGNOSTICS EKG reveals Atrial fibrillation with rapid ventricular response, heart rate 146, right bundle-branch block. EKG this morning 0416, patient converted to sinus rhythm heart rate 77, right bundle-branch block. Prior EKGs appear similar. Chest xray chronic changes with development of new bilateral multifocal opacities. CT chest was negative for pulmonary embolism, no thoracic aortic aneurysm. Laboratory data: troponin 0.07, 0.18, 0.59, WBC 13.1, hemoglobin 12, platelets 255, d-dimer 1.01, sodium 137, potassium 3.8, BUN 17, serum creatinine 3.2, magnesium 1.8, proBNP 85,300, COVID-19 PCR negative Current home cardiac medications include Lipitor 40 mg daily, lisinopril 5 mg daily, aspirin 81 mg daily, and metoprolol tartrate 50 mg twice a day Patient underwent a Lexiscan stress test in September 2020 with evidence of prior [place] but no stress-induced ischemia REVIEW OF SYSTEMS: At the time of my exam: CONSTITUTIONAL: Denies fever or chills. HEENT: Denies blurred vision, vision changes, or eye pain. Denies hemoptysis CARDIOVASCULAR: positive chest pain, positive shortness of breath, positive palpitations Denies orthopnea. Denies PND. RESPIRATORY: + shortness of breath. GASTROINTESTINAL: Denies abdominal pain. Denies nausea or vomiting. HEMATOLOGIC: Denies bleeding disorders. GENITOURINARY: Denies any blood in urine. SKIN: Denies pruitis. Denies rash. PHYSICAL EXAM: VITAL SIGNS: Reviewed. GENERAL: Well-developed in no acute distress. HEENT: Head is normocephalic. Pupils are equal, round. Sclerae anicteric. Mucous membranes of the mouth are moist. Neck supple. No JVD or thyromegaly LUNGS: Respirations even and unlabored. Lungs mild crackles bilateral bases to auscultation HEART: Regular rate and rhythm. S1 and S2 heard. Systolic murmur at left sternal border ABDOMEN: Soft. Nondistended. Nontender. EXTREMITIES: Normal range of motion. No clubbing or cyanosis. Peripheral pulses intact. No lower extremity edema .Left upper extremity edema NEUROLOGIC: Awake and alert. Oriented x 3. ASSESSMENT: Chest pain, atypical Elevated troponin, not indicative of acute coronary syndrome, most likely related to patient's end stage renal disease and possible combination atrial fibrillation with RVR. Patient with chronic elevated troponin with similar trend. End Stage Renal disease on hemodialysis Coronary artery disease with previous PCI to the RCA 2007 Persistent atrial fibrillation, previously on coumadin, not on anticoagulation secondary to history of GI bleeding Ischemic cardiomyopathy Chronic nicotine dependence PLAN: Stop IV cardizem Increase metoprolol tartrate to 25 mg twice a day Start Imdur 30 mg daily We will continue medical therapy with aspirin 81 mg daily, atorvastatin 40 mg daily, lisinopril 5 mg daily Continue cardiac childcare provider renal function and electrolytes Further recommendations pending patient's course Nurse practitioner note has been reviewed by physician. Signing provider agrees with the documented findings, assessment, and plan of care. Past Medical History Past Medical History: Atrial Fibrillation, Coronary Artery Disease (CAD), Chest Pain / Angina, Heart Failure, GI Bleed, Hyperlipidemia, Hypertension, Myocardial Infarction ([place]), Pneumonia, Renal Disease, Vascular Disorder Additional Past Medical History / Comment(s): 10/04/20 US TO CHECK FOR PATENCY OF DIALYSIS SHUNT. JUL 2020 ADMITTED FOR ANEMIA. ESRD with dialysis FOR MANY YEAR S (, , ). 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 Iron deficiency anemia, Mineral bone disease, diverticulosis, colon polyp (removed), PVD , neck fx as a young person with seizures following last one years ago. Last Myocardial Infarction Date:: 2013 History of Any Multi-Drug Resistant Organisms: None Reported Past Surgical History: Heart Catheterization With Stent Additional Past Surgical History / Comment(s): 07/24/20 EGD. Bilateral cataract removal with lens implants, shunt L arm. Past Anesthesia/Blood Transfusion Reactions: No Reported Reaction Date of Last Stent Placement:: 2007 Past Psychological History: No Psychological Hx Reported, Anxiety Additional Psychological History / Comment(s): Pt resides with his michaelleSarai. Daughter manages his meds. He has a cane which he uses prn. He is independent with his ADLs. He drives a car. He has no home care agency. Smoking Status: Current every day smoker, Light tobacco smoker Past Alcohol Use History: None Reported Additional Past Alcohol Use History / Comment(s): Pt started smoking in 1955. Patient smokes 6-7 cigarettes a day. USING NICOTINE PATCH Past Drug Use History: None Reported - Past Family History Father Family Medical History: Myocardial Infarction ([place]), Musculoskeletal Disorder Additional Family Medical History / Comment(s): Father at age 59 of a [place] Mother Family Medical History: CVA/TIA Additional Family Medical History / Comment(s): Mother of a brain he morrage. Medications and Allergies Home Medications Medication Instructions Recorded Confirmed Type Atorvastatin Calcium [Lipitor] 40 mg PO DAILY 07/02/20 05/22/21 History Pantoprazole [Protonix] 40 mg PO DAILY 07/20/20 05/22/21 History Vit C/E/Zn/Coppr/Lutein/Zeaxan 1 cap PO BID 10/04/20 05/22/21 History [Preservision Areds 2 Softgel] lisinopriL [Zestril] 5 mg PO DAILY 10/04/20 05/22/21 History Aspirin EC [Ecotrin Low Dose] 81 mg PO DAILY 05/14/21 05/22/21 History Lidocaine-Prilocaine Cream [Emla 1 applic TOPICAL DAILY PRN 05/14/21 05/22/21 History Cream 2.5%/2.5%] Nephro-Fred 0.8mg 1 tab PO DAILY 05/14/21 05/22/21 History Calcium Acetate [PhosLo] 667 mg PO AC-TID 05/22/21 05/22/21 History Metoprolol Tartrate [Lopressor] 12.5 mg PO BID 05/22/21 05/22/21 History Allergies Allergy/AdvReac Type Severity Reaction Status Date / Time No Known Allergies Allergy Verified 05/22/21 14:27 Physical Exam Vitals: Vital Signs Temp Pulse Pulse Resp BP BP Pulse Ox 05/23/21 04:00 98.2 F 78 17 119/44 97 05/23/21 02:00 86 18 05/22/21 23:43 98.1 F 84 18 144/54 97 05/22/21 22:32 96 18 142/59 98 05/22/21 17:52 108 H 18 129/66 98 05/22/21 14:38 115 H 18 130/66 98 05/22/21 13:52 135 H 20 115/65 100 05/22/21 12:57 97.8 F 138 H 24 138/79 95 Intake and Output 05/22/21 05/23/21 05/23/21 22:59 06:59 14:59 Intake Total 18.667 252.193 Balance 18.667 252.193 Intake: Intake, IV Titration 18.667 252.193 Amount Diltiazem 125 mg In 18.667 91.5 Sodium Chloride 0.9% 100 ml @ 5 MG/HR 5 mls/hr IV .Q24H [facility] Rx#:[id number] Heparin Sod,Pork in 0.45% 60.693 NaCl 25,000 unit In 0.45 % NaCl 1 250ml.bag @ 12 UNITS/KG/HR 8.165 mls/hr IV .Q24H [facility] Rx#: [id number] Magnesium Sulfate-D5w Pmx 100 1 gm In Dextrose/Water 1 100ml.bag @ 100 mls/hr IVPB Q1H [facility] Rx#: [id number] Other: Voiding Method Urinal Weight 68.039 kg Results 05/22/21 13:16 05/22/21 13:16 Cardiac Enzymes 05/22/21 05/22/21 05/22/21 Range/Units 13:16 13:16 15:57 AST 24 (17-59) U/L Troponin I 0.070 H* 0.183 H* (0.000-0.034) ng/mL 05/22/21 Range/Units 19:00 AST (17-59) U/L Troponin I 0.599 H* (0.000-0.034) ng/mL Coagulation 05/22/21 05/22/21 Range/Units 13:16 23:46 PT 10.8 (9.0-12.0) sec APTT 25.2 44.6 H (22.0-30.0) sec CBC 05/22/21 Range/Units 13:16 WBC 13.1 H (3.8-10.6) k/uL RBC 3.61 L (4.30-5.90) m/uL Hgb 12.0 L (13.0-17.5) gm/dL Hct 34.5 L (39.0-53.0) % Plt Count 255 (150-450) k/uL Comprehensive Metabolic Panel 05/22/21 Range/Units 13:16 Sodium 137 (137-145) mmol/L Potassium 3.8 (3.5-5.1) mmol/L Chloride 94 L (98-107) mmol/L Carbon Dioxide 29 (22-30) mmol/L BUN 17 (9-20) mg/dL Creatinine 3.20 H (0.66-1.25) mg/dL Glucose 134 H (74-99) mg/dL Calcium 9.1 (8.4-10.2) mg/dL AST 24 (17-59) U/L ALT 11 (4-49) U/L Alkaline Phosphatase 107 (38-126) U/L Total Protein 7.1 (6.3-8.2) g/dL Albumin 4.1 (3.5-5.0) g/dL Current Medications Generic Name Dose Route Start Last Admin Trade Name Freq PRN Reason Stop Dose Admin Aspirin 325 mg 05/23/21 09:00 Aspirin 325 Mg Tab PO DAILY [facility] Atorvastatin Calcium 40 mg 05/23/21 09:00 Atorvastatin 40 Mg Tab PO DAILY [facility] Calcium Acetate 667 mg 05/22/21 17:30 05/22/21 20:45 Calcium Acetate 667 Mg Tab PO 667 mg AC-TID [facility] Administration Diltiazem HCl 125 mg/ Sodium 125 mls @ 5 mls/hr 05/22/21 13:30 05/22/21 23:34 Chloride IV 15 mg/hr .Q24H [facility] 15 mls/hr Administration 5 MG/HR Heparin Sodium/Sodium Chloride 250 mls @ 8.165 mls/hr 05/22/21 16:15 05/23/21 00:59 25,000 unit/ Sodium Chloride IV 12 units/kg/hr .Q24H [facility] 8.165 mls/hr Titration Protocol 12 UNITS/KG/HR Lidocaine/Prilocaine 1 applic 05/22/21 16:38 Lidocaine-Prilocaine 2.5-2.5% Cream 5 Gm Tube TOPICAL DAILY PRN avf access Protocol Lisinopril 5 mg 05/23/21 09:00 Lisinopril 5 Mg Tab PO DAILY [facility] Metoprolol Tartrate 12.5 mg 05/22/21 21:00 05/22/21 22:31 Metoprolol Tartrate 12.5 Mg Tab PO 12.5 mg BID [facility] Administration Miscellaneous Information 1 each 05/22/21 16:00 Magnesium Replacement Protocol 1 Each Misc MISCELLANE DAILY PRN Per Protocol Protocol Multivit/Ca Carb/B Cmplx/FA/Prenat 1 each 05/23/21 09:00 Folic Acid-Vit B Complex-Vit C 1 Cap PO DAILY [facility] Multivitamins/Minerals 1 each 05/22/21 21:00 05/22/21 20:43 Vit A,C & R-Bherzs-Ocaxqyrd 1 Each Tab PO 1 each BID [facility] Administration Nitroglycerin 0.4 mg 05/22/21 16:04 Nitroglycerin Sl Tabs 0.4 Mg Tab SUBLINGUAL Q5M PRN Chest Pain Nitroglycerin 1 inch 05/22/21 18:00 05/23/21 06:41 Nitroglycerin Oint 1 Inch/Gm Packet TOPICAL 1 inch Q6HR [facility] Administration Pantoprazole Sodium 40 mg 05/23/21 07:30 Pantoprazole 40 Mg Tablet PO AC-BRKFST [facility] Intake and Output 05/22/21 05/23/21 05/23/21 22:59 06:59 14:59 Intake Total 18.667 252.193 Balance 18.667 252.193 Intake: Intake, IV Titration 18.667 252.193 Amount Diltiazem 125 mg In 18.667 91.5 Sodium Chloride 0.9% 100 ml @ 5 MG/HR 5 mls/hr IV .Q24H [facility] Rx#:[id number] Heparin Sod,Pork in 0.45% 60.693 NaCl 25,000 unit In 0.45 % NaCl 1 250ml.bag @ 12 UNITS/KG/HR 8.165 mls/hr IV .Q24H [facility] Rx#: [id number] Magnesium Sulfate-D5w Pmx 100 1 gm In Dextrose/Water 1 100ml.bag @ 100 mls/hr IVPB Q1H [facility] Rx#: [id number] Other: Voiding Method Urinal Weight 68.039 kg 05/22/21 13:16 05/22/21 13:16
[2021-05-23 11:17] LABS: Albumin 3.4 g/dL (3.5-5.0); Calcium 8.8 mg/dL (8.4-10.2); Magnesium 2.2 mg/dL (1.6-2.3); Phosphorus 3.8 mg/dL (2.5-4.5); Potassium 4.4 mmol/L (3.5-5.1); Total Bilirubin 0.4 mg/dL (0.2-1.3); Total Protein 6.2 g/dL (6.3-8.2)
[2021-05-23 11:20] LABS: Basophils # (A) 0.1 k/uL (0-0.2); Basophils % (A) 0 %; Eosinophils # (A) 0.5 k/uL (0-0.7); Eosinophils % (A) 4 %; HCT 29.3 % (39.0-53.0); Lymphocytes # (A) 1.4 k/uL (1.0-4.8); Lymphocytes % (A) 11 %; MCH 33.1 pg (25.0-35.0); MCHC 33.9 g/dL (31.0-37.0); MCV 97.7 fL (80.0-100.0); Mean Platelet Volume 8.9; Monocytes # (A) 0.6 k/uL (0-1.0); Monocytes % (A) 5 %; Neutrophils # (A) 9.9 k/uL (1.3-7.7); Neutrophils % (A) 78 %; Platelet Count 228 k/uL (150-450); RDW 12.9 % (11.5-15.5); WBC 12.8 k/uL (3.8-10.6)
[2021-05-23 11:28] LABS: HGB 9.9 gm/dL (13.0-17.5)
[2021-05-23] MEDS ORDERED: CEFEPIME 2 GM in SODIUM CHLORIDE 0.9% 100 ML IVPB SCH (16:00)
--- NOTE | 2021-05-23 17:01 | P.PN ---
Subjective Progress Note Date: 05/23/21 Principal diagnosis: Paroxysmal atrial fibrillation with RVR Chest pain rule out ACS with mildly elevated troponins Faint opacities noted on chest x-ray, possibly pneumonia 81-year-old male with significant past medical history of dialysis, hypertension, hyperlipidemia, paroxysmal atrial fibrillation, coronary artery disease with heart catheterization and coronary stents, history of myocardial infarction, history of gastrointestinal bleeding, and several additional comorbidities is admitted to the hospital for chest discomfort with associated atrial fibrillation with rapid ventricular response. Review of diagnostic testing, shows mild leukocytosis, chronic anemia, elevated troponin, possibly secondary to A. fib with RVR, elevated d-dimer, and elevated BNP. Patient has been initiated on Cardizem drip for rate control, heparin drip for anticoagulation therapy, and magnesium replacement for lower limit magnesium. 05/22/2021 Patient is seen and examined in the emergency department. Patient resting comfortably with 2 L of oxygen via nasal cannula. 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 He states decrease in chest pain intensity and breathing has become easier since being in the emergency department. He denies fever, chills, abdominal pain, nausea or vomiting at this time. Patient and family explained treatment, agreeable to treatment plan at this time. 05/23/2021 Patient seen and examined at bedside. Patient resting comfortably. Patient states chest pain has been relieved. Patient states mild shortness of breath at rest and exertion. Patient converted normal sinus rhythm throughout the night with Cardizem drip. Patient noted to have faint opacities noted on chest x-ray, will start cefepime 2 g with noted elevated Pro calcitonin time. Vital signs and diagnostic testing reviewed. Treatment plan explained to patient and [facility] staff. Objective - Vital Signs Vital signs: Vital Signs Temp 97.7 F 05/23/21 08:00 Pulse 76 05/23/21 08:00 Resp 16 05/23/21 08:00 BP 127/50 05/23/21 08:00 Pulse Ox 95 05/23/21 08:00 Intake & Output 05/22/21 05/23/21 05/23/21 18:59 06:59 18:59 Intake Total 18.667 252.193 100 Balance 18.667 252.193 100 Weight 68.039 kg 68.039 kg Intake: Intake, IV Titration 18.667 252.193 100 Amount Cefepime 2 gm In Sodium 100 Chloride 0.9% 100 ml @ 200 mls/hr IVPB ONCE@0800 [facility] Rx#:[id number] Diltiazem 125 mg In 18.667 91.5 Sodium Chloride 0.9% 100 ml @ 5 MG/HR 5 mls/hr IV .Q24H [facility] Rx#:[id number] Heparin Sod,Pork in 0.45% 60.693 NaCl 25,000 unit In 0.45 % NaCl 1 250ml.bag @ 12 UNITS/KG/HR 8.165 mls/hr IV .Q24H [facility] Rx#: [id number] Magnesium Sulfate-D5w Pmx 100 1 gm In Dextrose/Water 1 100ml.bag @ 100 mls/hr IVPB Q1H [facility] Rx#: [id number] Other: Voiding Method Urinal - Constitutional General appearance: Present: cooperative, mild distress - EENT Eyes: Present: EOMI, PERRLA ENT: Present: hard of hearing Ears: bilateral: normal - Neck Neck: Present: normal ROM Carotids: bilateral: upstroke normal Thyroid: bilateral: normal size - Respiratory Respiratory: bilateral: diminished (Anterior posterior lung fish) - Cardiovascular Details: Sinus rhythm with right bundle-branch block Heart rate: 84 Rhythm: regular Heart sounds: normal: S1, S2 - Peripheral pulses radial pulse Peripheral Pulses: bilateral: Normal dorsalis pedis Peripheral Pulses: bilateral: Normal - Gastrointestinal General gastrointestinal: Present: normal bowel sounds - Integumentary Integumentary: Present: normal turgor - Neurologic Neurologic: Present: CNII-XII intact - Musculoskeletal Musculoskeletal: Present: generalized weakness - Psychiatric Psychiatric: Present: A&O x's 3, appropriate affect, intact judgment & insight - Allied health notes Allied health notes reviewed: nursing - Labs CBC & Chem 7: 05/23/21 10:57 05/23/21 10:57 Labs: Abnormal Lab Results - Last 24 Hours (Table) 05/22/21 05/22/21 05/22/21 Range/Units 15:47 15:47 15:57 WBC (3.8-10.6) k/uL RBC (4.30-5.90) m/uL Hgb (13.0-17.5) gm/dL Hct (39.0-53.0) % Neutrophils # (1.3-7.7) k/uL ESR 54 H (0-15) mm/hr APTT (22.0-30.0) sec Sodium (137-145) mmol/L Chloride (98-107) mmol/L BUN (9-20) mg/dL Creatinine (0.66-1.25) mg/dL Glucose (74-99) mg/dL Troponin I 0.183 H* (0.000-0.034) ng/mL Total Protein (6.3-8.2) g/dL Albumin (3.5-5.0) g/dL Procalcitonin 0.43 H (0.02-0.09) ng/mL 05/22/21 05/22/21 05/23/21 Range/Units 19:00 23:46 07:51 WBC (3.8-10.6) k/uL RBC (4.30-5.90) m/uL Hgb (13.0-17.5) gm/dL Hct (39.0-53.0) % Neutrophils # (1.3-7.7) k/uL ESR (0-15) mm/hr APTT 44.6 H 59.4 H (22.0-30.0) sec Sodium (137-145) mmol/L Chloride (98-107) mmol/L BUN (9-20) mg/dL Creatinine (0.66-1.25) mg/dL Glucose (74-99) mg/dL Troponin I 0.599 H* (0.000-0.034) ng/mL Total Protein (6.3-8.2) g/dL Albumin (3.5-5.0) g/dL Procalcitonin (0.02-0.09) ng/mL 05/23/21 05/23/21 Range/Units 10:57 10:57 WBC 12.8 H (3.8-10.6) k/uL RBC 3.00 L (4.30-5.90) m/uL Hgb 9.9 L D (13.0-17.5) gm/dL Hct 29.3 L (39.0-53.0) % Neutrophils # 9.9 H (1.3-7.7) k/uL ESR (0-15) mm/hr APTT (22.0-30.0) sec Sodium 135 L (137-145) mmol/L Chloride 95 L (98-107) mmol/L BUN 33 H (9-20) mg/dL Creatinine 5.47 H (0.66-1.25) mg/dL Glucose 159 H (74-99) mg/dL Troponin I (0.000-0.034) ng/mL Total Protein 6.2 L (6.3-8.2) g/dL Albumin 3.4 L (3.5-5.0) g/dL Procalcitonin (0.02-0.09) ng/mL - Imaging and Cardiology Chest x-ray: report reviewed CT scan - chest: report reviewed Assessment and Plan Assessment: Atrial fibrillation with a rapid ventricular response, history of paroxysmal atrial fibrillation Elevated troponin, possibly secondary to A. fib with RVR Elevated d-dimer, will follow-up with CT of the chest Chest x-ray showing possible new bilateral multifocal faint opacities, will follow-up with CAT scan of the chest Chest discomfort, atypical in nature rule out acute coronary syndrome Ischemic cardiomyopathy History of coronary artery disease with heart catheterization and coronary sten ts History of myocardial infarction End-stage renal disease dependent on hemodialysis Wednesday, , Wednesday Peripheral vascular disease Mineral bone disease History of gastrointestinal bleeding History of recurrent pneumonias Nicotine dependence Mixed anxiety and depression DO NOT RESUSCITATE Plan: Paroxysmal atrial fibrillation with rapid ventricular response, converted to normal sinus rhythm throughout the night with Cardizem drip; consultation with cardiology for recommendations and treatment plan Chest discomfort, rule out ACS., Consultation with cardiology for recommendations Elevated troponin, possibly secondary to A. fib with RVR New bilateral multifocal faint opacities, blood cultures obtained,initiate cefepime 2 g IV piggyback Elevated Pro calcitonin time initiate and anabiotic therapy Continue to monitor vital signs diagnostic testing Continue home medications Continue medical management Further recommendations come based on patient's clinical condition Time with Patient: Greater than 30
[2021-05-24 00:41] LABS: Chol/HDL Ratio 3.12; LDL Cholesterol,Calculated 53.2 mg/dL (0.0-131.0); VLDL Calculation 18.8 mg/dL (5.00-40.00)
[2021-05-24] MEDS: CALCIUM ACETATE 667 MG TAB PO SCH ×3 (06:15→17:39)
[2021-05-24] MEDS: PANTOPRAZOLE 40 MG TABLET PO SCH (06:15)
--- NOTE | 2021-05-24 07:04 | XR ---
EXAMINATION TYPE: XR chest 1V portable DATE OF EXAM: 05/24/2021 CLINICAL HISTORY: Difficulty breathing progress study. TECHNIQUE: Single AP portable upright view of the chest is obtained. COMPARISON: Chest x-ray and CTA chest from 2 days earlier FINDINGS: Background chronic emphysematous and pulmonary fibrotic changes redemonstrated without kd picious focal airspace opacity, pleural effusion, or pneumothorax seen bilaterally. Cardiac silhouett e size is upper limits of normal. Osseous structures are intact. IMPRESSION: Chronic emphysematous and pulmonary fibrotic changes without new or persistent acute infi ltrates.
[2021-05-24] MEDS: lisinopriL 5 MG TAB PO SCH (07:50)
[2021-05-24] MEDS: ATORVASTATIN 40 MG TAB PO SCH (07:50)
[2021-05-24] MEDS: ASPIRIN 81 MG PO SCH (07:50)
[2021-05-24] MEDS: VIT A,C & E-LUTEIN-MINERALS 1 EACH TAB PO SCH ×2 (07:51→20:32)
[2021-05-24] MEDS: METOPROLOL TARTRATE 25 MG TAB PO SCH ×2 (07:51→20:33)
[2021-05-24] MEDS: CEFEPIME 1 GM in SODIUM CHLORIDE 0.9% 50 ML IVPB SCH (07:51)
[2021-05-24] MEDS: ISOSORBIDE MONONITRATE ER 30 MG TAB.ER.24H PO SCH (07:51)
[2021-05-24] MEDS: FOLIC ACID-VIT B COMPLEX-VIT C 1 CAP PO SCH (07:51)
[2021-05-24 08:07] LABS: Basophils % (A) 0 %; Eosinophils # (A) 0.6 k/uL (0-0.7); Eosinophils % (A) 6 %; HCT 29.1 % (39.0-53.0); Lymphocytes # (A) 1.5 k/uL (1.0-4.8); Lymphocytes % (A) 14 %; MCH 33.5 pg (25.0-35.0); MCHC 34.5 g/dL (31.0-37.0); MCV 97.1 fL (80.0-100.0); Mean Platelet Volume 8.9; Monocytes # (A) 0.7 k/uL (0-1.0); Monocytes % (A) 6 %; Neutrophils # (A) 8.2 k/uL (1.3-7.7); Neutrophils % (A) 73 %; Platelet Count 197 k/uL (150-450); RBC 2.99 m/uL (4.30-5.90); RDW 12.8 % (11.5-15.5); WBC 11.2 k/uL (3.8-10.6)
[2021-05-24 08:45] LABS: Magnesium 2.2 mg/dL (1.6-2.3); Potassium 4.6 mmol/L (3.5-5.1)
[2021-05-24 08:47] LABS: Calcium 9.3 mg/dL (8.4-10.2); Phosphorus 3.9 mg/dL (2.5-4.5)
--- NOTE | 2021-05-24 10:05 | P.PN ---
Subjective Patient is seen in follow-up for end-stage renal disease. Currently resting in bed. No chest pain or shortness of breath. Scheduled for dialysis today. Vital signs are stable. General: The patient appeared well nourished and normally developed. HEENT: Head exam is unremarkable. Neck is without jugular venous distension. LUNGS: Breath sounds decreased. HEART: Rate and Rhythm are regular. ABDOMEN: Soft, no distention. EXTREMITITES: No edema. Objective - Vital Signs Vital signs: Vital Signs Temp 98.0 F 05/24/21 08:00 Pulse 68 05/24/21 08:00 Resp 18 05/24/21 08:00 BP 145/56 05/24/21 08:00 Pulse Ox 99 05/24/21 08:42 Intake & Output 05/23/21 05/24/21 05/24/21 18:59 06:59 18:59 Intake Total 340 970 590 Balance 340 970 590 Weight 71.3 kg Intake: Intake, IV Titration 100 50 Amount Cefepime 1 gm In Sodium 50 Chloride 0.9% 50 ml @ 12. 5 mls/hr IVPB DAILY [facility] Rx#:[id number] Cefepime 2 gm In Sodium 100 Chloride 0.9% 100 ml @ 200 mls/hr IVPB ONCE@0800 [facility] Rx#:[id number] Oral 240 970 540 Other: Voiding Method Urinal Urinal # Voids 2 0 # Bowel Movements 1 - Labs CBC & Chem 7: 05/24/21 07:32 05/24/21 07:32 Labs: Abnormal Lab Results - Last 24 Hours (Table) 05/23/21 05/23/21 05/23/21 Range/Units 07:45 10:57 10:57 WBC 12.8 H (3.8-10.6) k/uL RBC 3.00 L (4.30-5.90) m/uL Hgb 9.9 L D (13.0-17.5) gm/dL Hct 29.3 L (39.0-53.0) % Neutrophils # 9.9 H (1.3-7.7) k/uL Sodium 135 L (137-145) mmol/L Chloride 95 L (98-107) mmol/L BUN 33 H (9-20) mg/dL Creatinine 5.47 H (0.66-1.25) mg/dL Glucose 159 H (74-99) mg/dL Total Protein 6.2 L (6.3-8.2) g/dL Albumin 3.4 L (3.5-5.0) g/dL HDL Cholesterol 34.0 L (40.0-60.0) mg/dL 05/24/21 05/24/21 Range/Units 07:32 07:32 WBC 11.2 H (3.8-10.6) k/uL RBC 2.99 L (4.30-5.90) m/uL Hgb 10.0 L (13.0-17.5) gm/dL Hct 29.1 L (39.0-53.0) % Neutrophils # 8.2 H (1.3-7.7) k/uL Sodium 133 L (137-145) mmol/L Chloride 94 L (98-107) mmol/L BUN 41 H (9-20) mg/dL Creatinine 6.73 H (0.66-1.25) mg/dL Glucose 104 H (74-99) mg/dL Total Protein (6.3-8.2) g/dL Albumin (3.5-5.0) g/dL HDL Cholesterol (40.0-60.0) mg/dL Assessment and Plan Plan: Assessment: 1. End-stage renal disease maintained on hemodialysis on Wednesday schedule. 2. Chronic kidney disease mineral bone disease maintained on PhosLo. 3. Hypertension with chronic kidney disease. Stable. 4. A. fib. On beta cynthia. 5. History of coronary artery disease. Plan: Hemodialysis today.
--- NOTE | 2021-05-24 10:51 | PN ---
PROGRESS NOTE Mr. Giraldo is an 81-year-old male with a history of paroxysmal atrial fibrillation, history of end-stage renal disease, on hemodialysis, cardiomyopathy. The patient has a history of CAD and history of chronic tobacco use who has been followed by Dr. Paniagua. He presented with dyspnea, chest discomfort and palpitation. He was in atrial fibrillation, rapid ventricular response. He is back in sinus mechanism at this time. He is undergoing dialysis today. He denies any palpitation. He had some pain earlier that resolved. His breathing is stable. He has no syncope. No clear PND nor orthopnea. He continues to be at this time on aspirin once a day, Lipitor 40 mg daily, isosorbide mononitrate 30 mg daily, lisinopril 5 mg daily, metoprolol tartrate 25 mg twice a day. PHYSICAL EXAMINATION: Blood pressure running in the one teens to 140s with the heart rate in the 60s. LUNGS: Clear. Heart regular rate and rhythm, S1, S2. No S3 with systolic murmur, no diastolic murmur. No rub. ABDOMEN: Soft nontender. EXTREMITIES: No edema. LAB DATA: Lab data revealed a potassium 4.6, BUN and creatinine 41 and 6.73. IMPRESSION: 1. Paroxysmal fibrillation back in sinus mechanism, not anticoagulated because of recurrent bleeding. 2. History of coronary artery disease with some episode of chest discomfort, could be angina related or could be noncardiac. 3. End-stage renal disease, on hemodialysis. 4. Prior history of stenting of the RCA in 2007. 5. Ischemic cardiomyopathy. 6. Chronic tobacco use. RECOMMENDATIONS: I will increase the dose of the nitrate, continue his medical regimen. Increase his level of activity. If he remains stable I would expect he should be able to be discharged home soon and followed as an outpatient with Dr. Paniagua. MMODL / IJN: [id number] /
--- NOTE | 2021-05-24 18:12 | P.PN ---
Subjective Progress Note Date: 05/24/21 Principal diagnosis: Paroxysmal atrial fibrillation with RVR Chest pain rule out ACS with mildly elevated troponins Faint opacities noted on chest x-ray, possibly pneumonia 81-year-old male with significant past medical history of dialysis, hypertension, hyperlipidemia, paroxysmal atrial fibrillation, coronary artery disease with heart catheterization and coronary stents, history of myocardial infarction, history of gastrointestinal bleeding, and several additional comorbidities is admitted to the hospital for chest discomfort with associated atrial fibrillation with rapid ventricular response. Review of diagnostic testing, shows mild leukocytosis, chronic anemia, elevated troponin, possibly secondary to A. fib with RVR, elevated d-dimer, and elevated BNP. Patient has been initiated on Cardizem drip for rate control, heparin drip for anticoagulation therapy, and magnesium replacement for lower limit magnesium. 05/22/2021 Patient is seen and examined in the emergency department. Patient resting comfortably with 2 L of oxygen via nasal cannula. 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 He states decrease in chest pain intensity and breathing has become easier since being in the emergency department. He denies fever, chills, abdominal pain, nausea or vomiting at this time. Patient and family explained treatment, agreeable to treatment plan at this time. 05/23/2021 Patient seen and examined at bedside. Patient resting comfortably. Patient states chest pain has been relieved. Patient states mild shortness of breath at rest and exertion. Patient converted normal sinus rhythm throughout the night with Cardizem drip. Patient noted to have faint opacities noted on chest x-ray, will start cefepime 2 g with noted elevated Pro calcitonin time. Vital signs and diagnostic testing reviewed. Treatment plan explained to patient and nursing staff. 05/24/2021 Patient is currently lying in the bed. Shortness of breath is better. Denied any complaints of chest pain. Patient is maintaining sinus rhythm. Currently undergoing hemodialysis. Continue on antibiotics in the form of cefepime. Heart rate is controlled. On metoprolol 25 mg twice a day and aspirin 81 mg daily. Nephrology and cardiology is on board. No nausea vomiting or abdominal pain or diarrhea. No complaints of chest pain today Active Medications Generic Name Dose Route Start Last Admin Trade Name Freq PRN Reason Stop Dose Admin Aspirin 81 mg 05/23/21 09:00 05/24/21 07:50 Aspirin 81 Mg PO 81 mg DAILY SHERRIE Administration Atorvastatin Calcium 40 mg 05/23/21 09:00 05/24/21 07:50 Atorvastatin 40 Mg Tab PO 40 mg DAILY SHERRIE Administration Calcium Acetate 667 mg 05/22/21 17:30 05/24/21 17:39 Calcium Acetate 667 Mg Tab PO 667 mg AC-TID SHERRIE Administration Cefepime HCl 1 gm/ Sodium 50 mls @ 12.5 mls/hr 05/24/21 09:00 05/24/21 07:51 Chloride IVPB 12.5 mls/hr DAILY SHERRIE Administration Isosorbide Mononitrate 60 mg 05/25/21 09:00 Isosorbide Mononitrate Er 60 Mg Tab.Er.24h PO DAILY SHERRIE Lidocaine/Prilocaine 1 applic 05/22/21 16:38 Lidocaine-Prilocaine 2.5-2.5% Cream 5 Gm Tube TOPICAL DAILY PRN avf access Protocol Lisinopril 5 mg 05/23/21 09:00 05/24/21 07:50 Lisinopril 5 Mg Tab PO 5 mg DAILY SHERRIE Administration Metoprolol Tartrate 25 mg 05/23/21 09:00 05/24/21 07:51 Metoprolol Tartrate 25 Mg Tab PO 25 mg BID SHERRIE Administration Miscellaneous Information 1 each 05/22/21 16:00 Magnesium Replacement Protocol 1 Each Misc MISCELLANE DAILY PRN Per Protocol Protocol Multivit/Ca Carb/B Cmplx/FA/Prenat 1 each 05/23/21 09:00 05/24/21 07:51 Folic Acid-Vit B Complex-Vit C 1 Cap PO 1 each DAILY SHERRIE Administration Multivitamins/Minerals 1 each 05/22/21 21:00 05/24/21 07:51 Vit A,C & G-Tfizwa-Xwrftaig 1 Each Tab PO 1 each BID SHERRIE Administration Nitroglycerin 0.4 mg 05/22/21 16:04 05/23/21 21:20 Nitroglycerin Sl Tabs 0.4 Mg Tab SUBLINGUAL 0.4 mg Q5M PRN Administration Chest Pain Pantoprazole Sodium 40 mg 05/23/21 07:30 05/24/21 06:15 Pantoprazole 40 Mg Tablet PO 40 mg AC-BRKFST SHERRIE Administration Objective - Vital Signs Vital signs: Vital Signs Temp 97.6 F 05/24/21 17:05 Pulse 66 05/24/21 17:05 Resp 12 05/24/21 17:05 BP 132/49 05/24/21 17:05 Pulse Ox 93 L 05/24/21 15:39 Intake & Output 05/23/21 05/24/21 05/24/21 18:59 06:59 18:59 Intake Total 606 791 8561 Output Total 1892 Balance 340 970 -202 Weight 71.3 kg Intake: Intake, IV Titration 100 50 Amount Cefepime 1 gm In Sodium 50 Chloride 0.9% 50 ml @ 12. 5 mls/hr IVPB DAILY [facility] Rx#:[id number] Cefepime 2 gm In Sodium 100 Chloride 0.9% 100 ml @ 200 mls/hr IVPB ONCE@0800 ONE Rx#:[id number] Oral 845 [id number] [id number] Hemodialysis 300 Output: Hemodialysis 1891 Other: Voiding Method Urinal Urinal # Voids 2 0 # Bowel Movements 1 - Exam PHYSICAL EXAMINATION: Patient is lying in the bed comfortably, no acute distress, awake alert and oriented.. HEENT: Normocephalic. Neck is supple. Pupils reactive. Nostrils clear. Oral cavity is moist. Neck reveals no JVD, carotid bruits, or thyromegaly. CHEST EXAMINATION: Trachea is central. Symmetrical expansion. Basilar crackles. No wheezing. Lung fish clear to auscultation and percussion. CARDIAC: Normal S1, S2 with no gallops. No murmurs ABDOMEN: Soft. Bowel sounds normal. No organomegaly. No abdominal bruits. Extremities: reveal no edema. No clubbing or cyanosis Neurologically awake, alert, oriented x3 with well-coordinated movements. No focal deficits noted Skin: No rash or skin lesions. Psychiatric: Coperative. Nonsuicidal Musculoskeletal: No joint swelling or deformity. Normal range of motion. - Labs CBC & Chem 7: 05/24/21 07:32 05/24/21 07:32 Labs: Abnormal Lab Results - Last 24 Hours (Table) 05/23/21 05/24/21 05/24/21 Range/Units 07:45 07:32 07:32 WBC 11.2 H (3.8-10.6) k/uL RBC 2.99 L (4.30-5.90) m/uL Hgb 10.0 L (13.0-17.5) gm/dL Hct 29.1 L (39.0-53.0) % Neutrophils # 8.2 H (1.3-7.7) k/uL Sodium 133 L (137-145) mmol/L Chloride 94 L (98-107) mmol/L BUN 41 H (9-20) mg/dL Creatinine 6.73 H (0.66-1.25) mg/dL Glucose 104 H (74-99) mg/dL HDL Cholesterol 34.0 L (40.0-60.0) mg/dL Microbiology - Last 24 Hours (Table) 05/23/21 07:45 Blood Culture - Preliminary Blood No Growth after 24 hours 05/23/21 07:51 Blood Culture - Preliminary Blood No Growth after 24 hours Assessment and Plan Assessment: Atrial fibrillation with a rapid ventricular response, history of paroxysmal atrial fibrillation. Rate controlled now. Not on anticoagulation due to history of GI bleed. Elevated troponin, possibly secondary to A. fib with RVR. Unlikely ACS. Elevated d-dimer, no PE as per CTA chest. Chest x-ray showing possible new bilateral multifocal faint opacities, will follow-up with CAT scan of the chest. CT showed marked central lobar emphysema. Chest discomfort, atypical in nature rule out acute coronary syndrome Ischemic cardiomyopathy History of coronary artery disease with heart catheterization and coronary stents History of myocardial infarction End-stage renal disease dependent on hemodialysis Wednesday, , Wednesday Peripheral vascular disease Mineral bone disease History of gastrointestinal bleeding History of recurrent pneumonias Nicotine dependence Mixed anxiety and depression DO NOT RESUSCITATE Plan: Paroxysmal atrial fibrillation with rapid ventricular response, converted to normal sinus rhythm throughout the night with Cardizem drip; started on metoprolol dose increased to 25 mg twice a day. Chest discomfort, ruled out ACS., Cardiology has seen the patient. Elevated troponin, possibly secondary to A. fib with RVR New bilateral multifocal faint opacities, blood cultures obtained,initiate cefepime 2 g IV piggyback. Repeat chest x-ray showed chronic emphysematous and pulmonary fibrotic changes without new or persistent acute infiltrates. Patient was started on antibiotics due to elevated Pro calcitonin level. Can be discontinued in the next 24 hours. Continue to monitor vital signs diagnostic testing Continue home medications Continue medical management Further recommendations come based on patient's clinical condition Time with Patient: Greater than 30
[2021-05-24 21:41] VITALS: RESP 18
[2021-05-25] MEDS: CALCIUM ACETATE 667 MG TAB PO SCH ×3 (06:27→17:03)
[2021-05-25] MEDS: PANTOPRAZOLE 40 MG TABLET PO SCH (06:27)
[2021-05-25] MEDS: ASPIRIN 81 MG PO SCH (07:36)
[2021-05-25] MEDS: ATORVASTATIN 40 MG TAB PO SCH (07:36)
[2021-05-25] MEDS: CEFEPIME 1 GM in SODIUM CHLORIDE 0.9% 50 ML IVPB SCH (07:36)
[2021-05-25] MEDS: METOPROLOL TARTRATE 25 MG TAB PO SCH ×2 (07:37→20:08)
[2021-05-25] MEDS: lisinopriL 5 MG TAB PO SCH (07:37)
[2021-05-25] MEDS: FOLIC ACID-VIT B COMPLEX-VIT C 1 CAP PO SCH (07:37)
[2021-05-25] MEDS: ISOSORBIDE MONONITRATE ER 60 MG TAB.ER.24H PO SCH (07:37)
[2021-05-25] MEDS: VIT A,C & E-LUTEIN-MINERALS 1 EACH TAB PO SCH ×2 (07:37→20:08)
--- NOTE | 2021-05-25 08:35 | P.PN ---
Subjective Patient is seen in follow-up for end-stage renal disease. Currently resting in bed. No chest pain or shortness of breath. No problems with dialysis yesterday. Wants to go home. Vital signs are stable. General: The patient appeared well nourished and normally developed. HEENT: Head exam is unremarkable. LUNGS: Breath sounds decreased. HEART: Rate and Rhythm are regular. ABDOMEN: Soft, no distention. EXTREMITITES: No edema. Objective - Vital Signs Vital signs: Vital Signs Temp 97.9 F 05/24/21 20:00 Pulse 65 05/25/21 04:00 Resp 18 05/25/21 04:00 BP 124/55 05/25/21 04:00 Pulse Ox 95 05/25/21 04:00 Intake & Output 05/24/21 05/25/21 05/25/21 18:59 06:59 18:59 Intake Total 1910 970 Output Total 1892 Balance 18 970 Weight 71 kg Intake: Intake, IV Titration 50 Amount Cefepime 1 gm In Sodium 50 Chloride 0.9% 50 ml @ 12. 5 mls/hr IVPB DAILY [facility] Rx#:[id number] Oral 1560 970 Hemodialysis 300 Output: Hemodialysis 1892 Other: Voiding Method Urinal Urinal # Voids 0 1 - Labs CBC & Chem 7: 05/24/21 07:32 05/24/21 07:32 Labs: Abnormal Lab Results - Last 24 Hours (Table) 05/24/21 Range/Units 07:32 Sodium 133 L (137-145) mmol/L Chloride 94 L (98-107) mmol/L BUN 41 H (9-20) mg/dL Creatinine 6.73 H (0.66-1.25) mg/dL Glucose 104 H (74-99) mg/dL Microbiology - Last 24 Hours (Table) 05/23/21 07:45 Blood Culture - Preliminary Blood No Growth after 24 hours 05/23/21 07:51 Blood Culture - Preliminary Blood No Growth after 24 hours Assessment and Plan Plan: Assessment: 1. End-stage renal disease maintained on hemodialysis on Wednesday Sat schedule. 2. Chronic kidney disease mineral bone disease maintained on PhosLo. 3. Hypertension with chronic kidney disease. Stable. 4. A. fib. On beta cynthia. 5. History of coronary artery disease. Plan: Hemodialysis on Wednesday.
[2021-05-25 09:17] LABS: Basophils % (A) 0 %; Eosinophils # (A) 0.6 k/uL (0-0.7); Eosinophils % (A) 5 %; HCT 27.3 % (39.0-53.0); HGB 9.2 gm/dL (13.0-17.5); Lymphocytes # (A) 0.9 k/uL (1.0-4.8); Lymphocytes % (A) 9 %; MCH 32.8 pg (25.0-35.0); MCHC 33.6 g/dL (31.0-37.0); MCV 97.6 fL (80.0-100.0); Mean Platelet Volume 8.7; Monocytes # (A) 0.7 k/uL (0-1.0); Monocytes % (A) 6 %; Neutrophils # (A) 7.9 k/uL (1.3-7.7); Neutrophils % (A) 76 %; Platelet Count 189 k/uL (150-450); RBC 2.79 m/uL (4.30-5.90); RDW 13.5 % (11.5-15.5); WBC 10.4 k/uL (3.8-10.6)
[2021-05-25 09:25] LABS: Calcium 8.8 mg/dL (8.4-10.2); Potassium 4.2 mmol/L (3.5-5.1)
--- NOTE | 2021-05-25 12:19 | PN ---
PROGRESS NOTE Mr. Giraldo is an 81-year-old male with a known history of paroxysmal atrial fibrillation, end-stage renal disease on hemodialysis, history of cardiomyopathy, chronic tobacco use, history of coronary artery disease. He came in paroxysmal atrial fibrillation. He is back in sinus mechanism. He is doing well this morning. He is feeling better overall. His breathing is stable. He has not been anticoagulated because of prior episode of bleeding. He denies any nausea or vomiting. He continues to be at this time on aspirin once a day, Lipitor 40 mg daily, isosorbide mononitrate 60 mg daily, lisinopril 5 mg daily, metoprolol tartrate 25 mg twice a day. PHYSICAL EXAMINATION: Blood pressure 126/50 with a heart rate 70. Lungs no wheezes or rales. Heart: Regular rate and rhythm S1, S2. No S3. No rub with a systolic murmur. Abdomen: Soft nontender. Extremities: No edema. LAB DATA: Lab data revealed BUN and creatinine 21 and 4.4, potassium 4.2. IMPRESSION: 1. Paroxysmal atrial fibrillation. Remains in sinus mechanism. Patient not anticoagulated because of prior bleeding. 2. History of end-stage renal disease, on hemodialysis. 3. History of coronary artery disease, stable. 4. Prior stenting of the RCA in 2007. 5. Ischemic cardiomyopathy. 6. Chronic tobacco use. RECOMMENDATIONS: I will continue on the present regimen. Increase his level of activity. If he remains stable, I would expect he should be able to be discharged home soon. MMODL / IJN: [id number] /
[2021-05-25] MEDS ORDERED: MELATONIN 3 MG TABLET PO PRN (21:44)
--- NOTE | 2021-05-26 01:22 | P.PN ---
Subjective Progress Note Date: 05/25/21 Principal diagnosis: Paroxysmal atrial fibrillation with RVR Chest pain rule out ACS with mildly elevated troponins Faint opacities noted on chest x-ray, possibly pneumonia 81-year-old male with significant past medical history of dialysis, hypertension, hyperlipidemia, paroxysmal atrial fibrillation, coronary artery disease with heart catheterization and coronary stents, history of myocardial infarction, history of gastrointestinal bleeding, and several additional comorbidities is admitted to the hospital for chest discomfort with associated atrial fibrillation with rapid ventricular response. Review of diagnostic testing, shows mild leukocytosis, chronic anemia, elevated troponin, possibly secondary to A. fib with RVR, elevated d-dimer, and elevated BNP. Patient has been initiated on Cardizem drip for rate control, heparin drip for anticoagulation therapy, and magnesium replacement for lower limit magnesium. 05/22/2021 Patient is seen and examined in the emergency department. Patient resting comfortably with 2 L of oxygen via nasal cannula. 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 He states decrease in chest pain intensity and breathing has become easier since being in the emergency department. He denies fever, chills, abdominal pain, nausea or vomiting at this time. Patient and family explained treatment, agreeable to treatment plan at this time. 05/23/2021 Patient seen and examined at bedside. Patient resting comfortably. Patient states chest pain has been relieved. Patient states mild shortness of breath at rest and exertion. Patient converted normal sinus rhythm throughout the night with Cardizem drip. Patient noted to have faint opacities noted on chest x-ray, will start cefepime 2 g with noted elevated Pro calcitonin time. Vital signs and diagnostic testing reviewed. Treatment plan explained to patient and nursing staff. 05/24/2021 Patient is currently lying in the bed. Shortness of breath is better. Denied any complaints of chest pain. Patient is maintaining sinus rhythm. Currently undergoing hemodialysis. Continue on antibiotics in the form of cefepime. Heart rate is controlled. On metoprolol 25 mg twice a day and aspirin 81 mg daily. Nephrology and cardiology is on board. No nausea vomiting or abdominal pain or diarrhea. No complaints of chest pain today 05/25/2021 Patient is currently resting in bed. Denies any complaints of chest pain or worsening shortness of breath. Otherwise complains of generalized pain but improved with medications. No fever no chills. No cough or sputum production. No leg swelling. Laboratory showed WBC 10.4 hemoglobin 9.2 and platelets 189 Sodium 137 potassium 4.2 chloride 100 BUN 21 and creatinine 4.43 Nephrology is on board and pending next hemodialysis on Wednesday. Anticipate discharge in the next 24 hours. Active Medications Generic Name Dose Route Start Last Admin Trade Name Freq PRN Reason Stop Dose Admin Aspirin 81 mg 05/23/21 09:00 05/24/21 07:50 Aspirin 81 Mg PO 81 mg DAILY SHERRIE Administration Atorvastatin Calcium 40 mg 05/23/21 09:00 05/24/21 07:50 Atorvastatin 40 Mg Tab PO 40 mg DAILY SHERRIE Administration Calcium Acetate 667 mg 05/22/21 17:30 05/24/21 17:39 Calcium Acetate 667 Mg Tab PO 667 mg AC-TID SHERRIE Administration Cefepime HCl 1 gm/ Sodium 50 mls @ 12.5 mls/hr 05/24/21 09:00 05/24/21 07:51 Chloride IVPB 12.5 mls/hr DAILY SHERRIE Administration Isosorbide Mononitrate 60 mg 05/25/21 09:00 Isosorbide Mononitrate Er 60 Mg Tab.Er.24h PO DAILY SHERRIE Lidocaine/Prilocaine 1 applic 05/22/21 16:38 Lidocaine-Prilocaine 2.5-2.5% Cream 5 Gm Tube TOPICAL DAILY PRN avf access Protocol Lisinopril 5 mg 05/23/21 09:00 05/24/21 07:50 Lisinopril 5 Mg Tab PO 5 mg DAILY SHERRIE Administration Metoprolol Tartrate 25 mg 05/23/21 09:00 05/24/21 07:51 Metoprolol Tartrate 25 Mg Tab PO 25 mg BID SHERRIE Administration Miscellaneous Information 1 each 05/22/21 16:00 Magnesium Replacement Protocol 1 Each Misc MISCELLANE DAILY PRN Per Protocol Protocol Multivit/Ca Carb/B Cmplx/FA/Prenat 1 each 05/23/21 09:00 05/24/21 07:51 Folic Acid-Vit B Complex-Vit C 1 Cap PO 1 each DAILY SHERRIE Administration Multivitamins/Minerals 1 each 05/22/21 21:00 05/24/21 07:51 Vit A,C & J-Lhymej-Eesalycg 1 Each Tab PO 1 each BID SHERRIE Administration Nitroglycerin 0.4 mg 05/22/21 16:04 05/23/21 21:20 Nitroglycerin Sl Tabs 0.4 Mg Tab SUBLINGUAL 0.4 mg Q5M PRN Administration Chest Pain Pantoprazole Sodium 40 mg 05/23/21 07:30 05/24/21 06:15 Pantoprazole 40 Mg Tablet PO 40 mg AC-BRKFST SHERRIE Administration Objective - Vital Signs Vital signs: Vital Signs Temp 97.9 F 05/25/21 15:40 Pulse 66 05/25/21 15:40 Resp 18 05/25/21 15:40 BP 123/75 05/25/21 15:40 Pulse Ox 96 05/25/21 15:40 Intake & Output 05/25/21 05/25/21 05/26/21 06:59 18:59 06:59 Intake Total 970 720 Balance 970 720 Weight 71 kg Intake: Oral 970 720 Other: Voiding Method Urinal Urinal # Voids 1 0 - Exam PHYSICAL EXAMINATION: Patient is lying in the bed comfortably, no acute distress, awake alert and oriented.. HEENT: Normocephalic. Neck is supple. Pupils reactive. Nostrils clear. Oral cavity is moist. Neck reveals no JVD, carotid bruits, or thyromegaly. CHEST EXAMINATION: Trachea is central. Symmetrical expansion. Basilar crackles. No wheezing. Lung fish clear to auscultation and percussion. CARDIAC: Normal S1, S2 with no gallops. No murmurs ABDOMEN: Soft. Bowel sounds normal. No organomegaly. No abdominal bruits. Extremities: reveal no edema. No clubbing or cyanosis Neurologically awake, alert, oriented x3 with well-coordinated movements. No focal deficits noted Skin: No rash or skin lesions. Psychiatric: Coperative. Nonsuicidal Musculoskeletal: No joint swelling or deformity. Normal range of motion. - Labs CBC & Chem 7: 05/25/21 08:29 05/25/21 08:29 Labs: Abnormal Lab Results - Last 24 Hours (Table) 05/25/21 05/25/21 Range/Units 08:29 08:29 RBC 2.79 L (4.30-5.90) m/uL Hgb 9.2 L (13.0-17.5) gm/dL Hct 27.3 L (39.0-53.0) % Neutrophils # 7.9 H (1.3-7.7) k/uL Lymphocytes # 0.9 L (1.0-4.8) k/uL BUN 21 H (9-20) mg/dL Creatinine 4.43 H (0.66-1.25) mg/dL Glucose 137 H (74-99) mg/dL Microbiology - Last 24 Hours (Table) 05/23/21 07:45 Blood Culture - Preliminary Blood No Growth after 48 hours 05/23/21 07:51 Blood Culture - Preliminary Blood No Growth after 48 hours Assessment and Plan Assessment: Atrial fibrillation with a rapid ventricular response, history of paroxysmal atrial fibrillation. Rate controlled now. Not on anticoagulation due to history of GI bleed. Elevated troponin, possibly secondary to A. fib with RVR. Unlikely ACS. Elevated d-dimer, no PE as per CTA chest. Chest x-ray showing possible new bilateral multifocal faint opacities, will follow-up with CAT scan of the chest. CT showed marked central lobar emphysema. Chest discomfort, atypical in nature rule out acute coronary syndrome Ischemic cardiomyopathy History of coronary artery disease with heart catheterization and coronary stents History of myocardial infarction End-stage renal disease dependent on hemodialysis Wednesday, , Wednesday Peripheral vascular disease Mineral bone disease History of gastrointestinal bleeding History of recurrent pneumonias Nicotine dependence Mixed anxiety and depression DO NOT RESUSCITATE Plan: Paroxysmal atrial fibrillation with rapid ventricular response, converted to normal sinus rhythm throughout the night with Cardizem drip; started on metoprolol dose increased to 25 mg twice a day. Chest discomfort, ruled out ACS., Cardiology has seen the patient. Elevated troponin, possibly secondary to A. fib with RVR New bilateral multifocal faint opacities, blood cultures obtained,initiate cefepime 2 g IV piggyback. Repeat chest x-ray showed chronic emphysematous and pulmonary fibrotic changes without new or persistent acute infiltrates. Patient was started on antibiotics due to elevated Pro calcitonin level. ABx Dced. Continue to monitor vital signs diagnostic testing Continue home medications Continue medical management Further recommendations come based on patient's clinical condition Time with Patient: Greater than 30
[2021-05-26 05:36] VITALS: PULSE 53; TEMP 97.6
[2021-05-26] MEDS: PANTOPRAZOLE 40 MG TABLET PO SCH (06:41)
[2021-05-26] MEDS: CALCIUM ACETATE 667 MG TAB PO SCH (06:41)
[2021-05-26 08:00] LABS: Basophils % (A) 0 %; Eosinophils # (A) 0.6 k/uL (0-0.7); Eosinophils % (A) 5 %; HCT 28.9 % (39.0-53.0); HGB 9.6 gm/dL (13.0-17.5); Lymphocytes # (A) 1.6 k/uL (1.0-4.8); Lymphocytes % (A) 14 %; MCH 32.9 pg (25.0-35.0); MCHC 33.3 g/dL (31.0-37.0); MCV 98.9 fL (80.0-100.0); Mean Platelet Volume 8.9; Monocytes # (A) 0.8 k/uL (0-1.0); Monocytes % (A) 7 %; Neutrophils # (A) 8.3 k/uL (1.3-7.7); Neutrophils % (A) 72 %; Platelet Count 172 k/uL (150-450); RBC 2.92 m/uL (4.30-5.90); RDW 12.8 % (11.5-15.5); WBC 11.5 k/uL (3.8-10.6)
[2021-05-26 08:11] LABS: Potassium 4.9 mmol/L (3.5-5.1)
[2021-05-26] MEDS: VIT A,C & E-LUTEIN-MINERALS 1 EACH TAB PO SCH (08:41)
[2021-05-26] MEDS: ATORVASTATIN 40 MG TAB PO SCH (08:41)
[2021-05-26] MEDS: FOLIC ACID-VIT B COMPLEX-VIT C 1 CAP PO SCH (08:41)
[2021-05-26] MEDS: lisinopriL 5 MG TAB PO SCH (08:41)
[2021-05-26] MEDS: ISOSORBIDE MONONITRATE ER 60 MG TAB.ER.24H PO SCH (08:41)
[2021-05-26] MEDS: METOPROLOL TARTRATE 25 MG TAB PO SCH (08:41)
[2021-05-26] MEDS: ASPIRIN 81 MG PO SCH (08:41)
--- NOTE | 2021-05-26 09:22 | P.PN ---
Subjective Patient is seen in follow-up for end-stage renal disease. Currently resting in bed. No chest pain or shortness of breath. Hemodynamically stable. Eager to go home. Vital signs are stable. General: The patient appeared well nourished and normally developed. HEENT: Head exam is unremarkable. LUNGS: Breath sounds decreased. HEART: Rate and Rhythm are regular. ABDOMEN: Soft, no distention. EXTREMITITES: No edema. Objective - Vital Signs Vital signs: Vital Signs Temp 97.6 F 05/26/21 04:00 Pulse 53 L 05/26/21 04:00 Resp 18 05/26/21 04:00 BP 123/68 05/26/21 04:00 Pulse Ox 99 05/26/21 07:39 Intake & Output 05/25/21 05/26/21 05/26/21 18:59 06:59 18:59 Intake Total 720 236 Balance 720 236 Weight 69.7 kg Intake: Oral 720 236 Other: Voiding Method Urinal Urinal # Voids 0 1 # Bowel Movements 1 - Labs CBC & Chem 7: 05/26/21 07:23 05/26/21 07:23 Labs: Abnormal Lab Results - Last 24 Hours (Table) 05/25/21 05/26/21 05/26/21 Range/Units 08:29 07:23 07:23 WBC 11.5 H (3.8-10.6) k/uL RBC 2.92 L (4.30-5.90) m/uL Hgb 9.6 L (13.0-17.5) gm/dL Hct 28.9 L (39.0-53.0) % Neutrophils # 8.3 H (1.3-7.7) k/uL BUN 21 H 31 H (9-20) mg/dL Creatinine 4.43 H 5.94 H (0.66-1.25) mg/dL Glucose 137 H (74-99) mg/dL Microbiology - Last 24 Hours (Table) 05/23/21 07:45 Blood Culture - Preliminary Blood No Growth after 48 hours 05/23/21 07:51 Blood Culture - Preliminary Blood No Growth after 48 hours Assessment and Plan Plan: Assessment: 1. End-stage renal disease maintained on hemodialysis on Wednesday schedule. 2. Chronic kidney disease mineral bone disease maintained on PhosLo. 3. Hypertension with chronic kidney disease. Stable. 4. A. fib. On beta cynthia. 5. History of coronary artery disease. 6. Anemia of chronic kidney disease. Plan: Hemodialysis on Wednesday. Check iron studies.
--- NOTE | 2021-05-26 12:05 | P.DS ---
Providers Date of admission: 05/22/21 16:02 Attending physician: Edward Bowen Consults: 05/22/21 16:04 Consult Physician Urgent Consulting Provider: [facility] Consult Reason/Comments: A. fib with rapid ventricular response, chest pain Do you want consulting provider notified?: Yes 05/22/21 17:43 Consult Physician Urgent Consulting Provider: Ifrah Gonzalez Consult Reason/Comments: dialysis orders Do you want consulting provider notified?: Yes Primary care physician: Edward Bowen Hospital Course: Paroxysmal atrial fibrillation with RVR Chest pain rule out ACS with mildly elevated troponins Faint opacities noted on chest x-ray, possibly pneumonia 81-year-old male with significant past medical history of dialysis, hypertension, hyperlipidemia, paroxysmal atrial fibrillation, coronary artery disease with heart catheterization and coronary stents, history of myocardial infarction, history of gastrointestinal bleeding, and several additional comorbidities is admitted to the hospital for chest discomfort with associated atrial fibrillation with rapid ventricular response. Review of diagnostic testing, shows mild leukocytosis, chronic anemia, elevated troponin, possibly secondary to A. fib with RVR, elevated d-dimer, and elevated BNP. Patient has been initiated on Cardizem drip for rate control, heparin drip for anticoagulation therapy, and magnesium replacement for lower limit magnesium. 05/22/2021 Patient is seen and examined in the emergency department. Patient resting comfortably with 2 L of oxygen via nasal cannula. 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 He states decrease in chest pain intensity and breathing has become easier since being in the emergency department. He denies fever, chills, abdominal pain, nausea or vomiting at this time. Patient and family explained treatment, agreeable to treatment plan at this time. 05/23/2021 Patient seen and examined at bedside. Patient resting comfortably. Patient states chest pain has been relieved. Patient states mild shortness of breath at rest and exertion. Patient converted normal sinus rhythm throughout the night with Cardizem drip. Patient noted to have faint opacities noted on chest x-ray, will start cefepime 2 g with noted elevated Pro calcitonin time. Vital signs and diagnostic testing reviewed. Treatment plan explained to patient and nursing staff. 05/24/2021 Patient is currently lying in the bed. Shortness of breath is better. Denied any complaints of chest pain. Patient is maintaining sinus rhythm. Currently undergoing hemodialysis. Continue on antibiotics in the form of cefepime. Heart rate is controlled. On metoprolol 25 mg twice a day and aspirin 81 mg daily. Nephrology and cardiology is on board. No nausea vomiting or abdominal pain or diarrhea. No complaints of chest pain today 05/25/2021 Patient is currently resting in bed. Denies any complaints of chest pain or worsening shortness of breath. Otherwise complains of generalized pain but improved with medications. No fever no chills. No cough or sputum production. No leg swelling. Laboratory showed WBC 10.4 hemoglobin 9.2 and platelets 189 Sodium 137 potassium 4.2 chloride 100 BUN 21 and creatinine 4.43 Nephrology is on board and pending next hemodialysis on Wednesday. Anticipate discharge in the next 24 hours. 05/26/2021 Patient heart rate is well controlled at this time if cleared by cardiology patient will be discharged today. 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 Patient continues to have leukocytosis but no evidence of pneumonia ,antibodies were discontinued or not believe patient will need to be discharged on antibiotics. We'll repeat CBC as an outpatient patient will follow up with the Dr. Bowen his PCP as an outpatient. PHYSICAL EXAMINATION: Patient is lying in the bed comfortably, no acute distress, awake alert and oriented.. HEENT: Normocephalic. Neck is supple. Pupils reactive. Nostrils clear. Oral cavity is moist. Neck reveals no JVD, carotid bruits, or thyromegaly. CHEST EXAMINATION: Trachea is central. Symmetrical expansion. Basilar crackles. No wheezing. Lung fish clear to auscultation and percussion. CARDIAC: Normal S1, S2 with no gallops. No murmurs ABDOMEN: Soft. Bowel sounds normal. No organomegaly. No abdominal bruits. Extremities: reveal no edema. No clubbing or cyanosis Neurologically awake, alert, oriented x3 with well-coordinated movements. No focal deficits noted Skin: No rash or skin lesions. Psychiatric: Coperative. Nonsuicidal Musculoskeletal: No joint swelling or deformity. Normal range of motion. Assessment and Plan Assessment: Atrial fibrillation with a rapid ventricular response, history of paroxysmal atrial fibrillation. Rate controlled now. Not on anticoagulation due to history of GI bleed. Elevated troponin, possibly secondary to A. fib with RVR. Unlikely ACS. Elevated d-dimer, no PE as per CTA chest. No evidence of pneumonia on CT angios the chest Chest x-ray showing possible new bilateral multifocal faint opacities, will follow-up with CAT scan of the chest. CT showed marked central lobar emphysema. Chest discomfort, atypical in nature rule out acute coronary syndrome Ischemic cardiomyopathy History of coronary artery disease with heart catheterization and coronary stents History of myocardial infarction End-stage renal disease dependent on hemodialysis Wednesday, , Wednesday Peripheral vascular disease Mineral bone disease History of gastrointestinal bleeding History of recurrent pneumonias Nicotine dependence Mixed anxiety and depression DO NOT RESUSCITATE Plan - Discharge Summary New Discharge Prescriptions: New Metoprolol Tartrate [Lopressor] 25 mg PO BID #60 tab Isosorbide Mononitrate ER [Imdur] 60 mg PO DAILY #30 tablet Continue Atorvastatin Calcium [Lipitor] 40 mg PO DAILY Pantoprazole [Protonix] 40 mg PO DAILY lisinopriL [Zestril] 5 mg PO DAILY Vit C/E/Zn/Coppr/Lutein/Zeaxan [Preservision Areds 2 Softgel] 1 cap PO BID Lidocaine-Prilocaine Cream [Emla Cream 2.5%/2.5%] 1 applic TOPICAL DAILY PRN PRN Reason: avf access Calcium Acetate [PhosLo] 667 mg PO AC-TID Nephro-Fred 0.8mg 1 tab PO DAILY Aspirin EC [Ecotrin Low Dose] 81 mg PO DAILY Discontinued Metoprolol Tartrate [Lopressor] 12.5 mg PO BID Discharge Medication List Atorvastatin Calcium [Lipitor] 40 mg PO DAILY 07/02/20 [History] Pantoprazole [Protonix] 40 mg PO DAILY 07/20/20 [History] Vit C/E/Zn/Coppr/Lutein/Zeaxan [Preservision Areds 2 Softgel] 1 cap PO BID 10/04/20 [History] lisinopriL [Zestril] 5 mg PO DAILY 10/04/20 [History] Aspirin EC [Ecotrin Low Dose] 81 mg PO DAILY 05/14/21 [History] Lidocaine-Prilocaine Cream [Emla Cream 2.5%/2.5%] 1 applic TOPICAL DAILY PRN 05/14/21 [History] Nephro-Fred 0.8mg 1 tab PO DAILY 05/14/21 [History] Calcium Acetate [PhosLo] 667 mg PO AC-TID 05/22/21 [History] Isosorbide Mononitrate ER [Imdur] 60 mg PO DAILY #30 tablet 05/26/21 [Rx] Metoprolol Tartrate [Lopressor] 25 mg PO BID #60 tab 05/26/21 [Rx] Follow up Appointment(s)/Referral(s): Edward Bowen MD [Primary Care Provider] - 3 Days Tony Paniagua MD [STAFF PHYSICIAN] - 2 Weeks Ambulatory/Diagnostic Orders: Complete Blood Count w/diff [LAB.AMB] Time Frame: 3 Days, Location: None Selected Discharge Disposition: HOME SELF-CARE
[2021-05-26 13:33] VITALS: BP 128/72
--- NOTE | 2021-05-26 15:17 | P.PN ---
Subjective This is a 81-year-old male with a past medical history significant for end-stage renal disease on hemodialysis Wednesday, , and Wednesday, ischemic cardiomyopathy, paroxysmal atrial fibrillation not on anticoagulation secondary to GI bleeding, coronary artery disease with previous PCI to the RCA in 2007, chronic nicotine dependence (currently smokes 2-3 cigarettes per day). Patient follows in the office with Dr. Paniagua. We have been asked to see the patient in consultation for atrial fibrillation with rapid ventricular response. Patient ex amined at the bedside. Patient states he was undergoing dialysis yesterday on 05/22, 30 minutes left of treatment, patient started to have chest pain, he describes it as a pain/pressure. Did have some radiation to his left arm. Non- exertional. He did have symptoms of shortness of breath and nausea. However, he states his shortness of breath and nausea during dialysis are not new. He also had palpitations. EMS was called. Patient was apparently found to have an irregular HR 130-170s. He was brought to the emergency department for further evaluation. He states his chest pain lasted for about 4 hours. He states after arrival to the emergency department and given medication (he is unsure what m edication) his chest pain did resolve. He denies any specific aggravating factors. On admission patient was given 10 mg of IV Cardizem bolus and started on Cardizem drip at 15 mg/hr and weaned, also given topical nitroglycerin. Patient was recently admitted on 05/14/2021 chest pain and elevated troponins. Echocardiogram revealed an EF of 35-40%, stage III diastolic dysfunction, mild mitral regurgitation, moderate tricuspid regurgitation, severe pulmonary hypertension with an RVSP 75 mmHg. Prior Echo in June 2020 revealed an EF of 3035%. Patient does have chronic elevated troponins. 05/26/21 Patient seen and examined at bedside, no acute distress. Patient continues to maintain sinus mechanism heart rate 6070s. Blood pressure 120/72, afebrile maintaining oxygen saturations on 3 L nasal cannula. Laboratory data review WBC 11.5, hemoglobin 9.6, platelets 172, sodium 137, potassium 4.9, BUN 31, serum creatinine 5.9 PHYSICAL EXAM: VITAL SIGNS: Reviewed. GENERAL: Well-developed in no acute distress. HEENT: Neck supple. No JVD LUNGS: Respirations even and unlabored. Lungs mild crackles bilateral bases to auscultation HEART: Regular rate and rhythm. S1 and S2 heard. Systolic murmur at left sternal border ABDOMEN: Soft. Nondistended. Nontender. EXTREMITIES: Normal range of motion. No clubbing or cyanosis. Peripheral pul ses intact. No lower extremity edema .Left upper extremity edema NEUROLOGIC: Awake and alert. Oriented x 3. ASSESSMENT: Chest pain, atypical Elevated troponin, not indicative of acute coronary syndrome, most likely related to patient's end stage renal disease and possible combination atrial fibrillation with RVR. Patient with chronic elevated troponin with similar kyleigh nd. End Stage Renal disease on hemodialysis Coronary artery disease with previous PCI to the RCA 2007 Persistent atrial fibrillation, previously on coumadin, not on anticoagulation secondary to history of GI bleeding Ischemic cardiomyopathy Chronic nicotine dependence PLAN: Continue current medical therapy aspirin 81 mg daily, atorvastatin 40 mg daily, lisinopril 5 mg daily, metoprolol tartrate to 25 mg twice a day, Imdur From a cardiology perspective, patient is stable to be discharged home. Recommend close follow up with Dr. Paniagua. Nurse practitioner note has been reviewed by physician. Signing provider agrees with the documented findings, assessment, and plan of ca Objective - Vital Signs Vital signs: Vital Signs Temp 97.6 F 05/26/21 04:00 Pulse 53 L 05/26/21 08:00 Resp 18 05/26/21 08:00 BP 128/72 05/26/21 08:00 Pulse Ox 99 05/26/21 08:00 Intake & Output 05/25/21 05/26/21 05/26/21 18:59 06:59 18:59 Intake Total 720 486 Balance 720 486 Weight 69.7 kg Intake: Oral 720 486 Other: Voiding Method Urinal Urinal # Voids 0 1 # Bowel Movements 1 - Labs CBC & Chem 7: 05/26/21 07:23 05/26/21 07:23 Labs: Abnormal Lab Results - Last 24 Hours (Table) 05/26/21 05/26/21 Range/Units 07:23 07:23 WBC 11.5 H (3.8-10.6) k/uL RBC 2.92 L (4.30-5.90) m/uL Hgb 9.6 L (13.0-17.5) gm/dL Hct 28.9 L (39.0-53.0) % Neutrophils # 8.3 H (1.3-7.7) k/uL BUN 31 H (9-20) mg/dL Creatinine 5.94 H (0.66-1.25) mg/dL Microbiology - Last 24 Hours (Table) 05/23/21 07:45 Blood Culture - Preliminary Blood No Growth after 72 hours 05/23/21 07:51 Blood Culture - Preliminary Blood No Growth after 72 hours
[2021-05-26 19:31] LABS: % Iron Saturation 40.1 (15.00-50.00)
[2021-05-26 19:47] LABS: Ferritin 1942.8 ng/mL (22.0-322.0)
== END 2021-05-26 13:48 | disposition home or self-care (01) | DRG 308 ==
LOC: EC 12:50 → 3SCARD 16:02
PROVIDERS: ADMIT Family Medicine; ATTEND Family Medicine
DX: I48.19 Other persistent atrial fibrillation (principal); N18.6 End stage renal disease; I13.2 Hypertensive heart and chronic kidney disease with heart failure and with stage 5 chronic kidney disease, or end stage renal disease; K92.2 Gastrointestinal hemorrhage, unspecified; E78.5 Hyperlipidemia, unspecified; F17.210 Nicotine dependence, cigarettes, uncomplicated; I08.1 Rheumatic disorders of both mitral and tricuspid valves; I25.10 Atherosclerotic heart disease of native coronary artery without angina pectoris; I25.2 Old myocardial infarction; I25.5 Ischemic cardiomyopathy; Z87.19 Personal history of other diseases of the digestive system; Z95.5 Presence of coronary angioplasty implant and graft; Z87.01 Personal history of pneumonia (recurrent); Z82.49 Family history of ischemic heart disease and other diseases of the circulatory system; Z79.899 Other long term (current) drug therapy; Z79.82 Long term (current) use of aspirin; Z66 Do not resuscitate; Z96.1 Presence of intraocular lens; Z20.822 Contact with and (suspected) exposure to COVID-19; Z98.41 Cataract extraction status, right eye; Z98.42 Cataract extraction status, left eye; Z99.2 Dependence on renal dialysis; D63.1 Anemia in chronic kidney disease; D72.829 Elevated white blood cell count, unspecified; F41.8 Other specified anxiety disorders; I27.22 Pulmonary hypertension due to left heart disease; I50.9 Heart failure, unspecified; M89.8X9 Other specified disorders of bone, unspecified site; I45.10 Unspecified right bundle-branch block; D50.9 Iron deficiency anemia, unspecified; R56.9 Unspecified convulsions; R79.89 Other specified abnormal findings of blood chemistry; I73.9 Peripheral vascular disease, unspecified
CPT/HCPCS: 36415; 71045; 71046; 71275; 80048; 80053; 80061; 82728; 83540; 83550; 83735; 83880; 84100; 84145; 84484; 85025; 85379; 85610; 85652; 85730; 86140; 87040; 87635; 90935; 93005; 94760; 96374; 99285

== ENCOUNTER 2021-09-20 17:01 | Inpatient (IN) | payer MEDICARE ==
--- NOTE | 2021-09-20 17:37 | ED ---
General Adult HPI - General Chief complaint: Shortness of Breath Stated complaint: SOB Time Seen by Provider: 09/20/21 17:12 Source: patient, RN notes reviewed Mode of arrival: ambulatory Limitations: no limitations - History of Present Illness Initial comments: Patient is a pleasant 81-year-old male presenting to emergency Department with some shortness of breath. Patient was exposed to COVID-19 early in the week. Patient had his dialysis last on Wednesday. Patient did have a cold with test however results are not back yet. Patient was not allowed to do his dialysis or today. Patient is starting to have some shortness of breath. Melvina ent has had similar dyspnea previously associated with missing dialysis. Patient denies ever having any chest discomfort. No fevers. - Related Data Home Medications Medication Instructions Recorded Confirmed Atorvastatin Calcium [Lipitor] 40 mg PO DAILY 07/02/20 05/22/21 Pantoprazole [Protonix] 40 mg PO DAILY 07/20/20 05/22/21 Vit C/E/Zn/Coppr/Lutein/Zeaxan 1 cap PO BID 10/04/20 05/22/21 [Preservision Areds 2 Softgel] lisinopriL [Zestril] 5 mg PO DAILY 10/04/20 05/22/21 Aspirin EC [Ecotrin Low Dose] 81 mg PO DAILY 05/14/21 05/22/21 Lidocaine-Prilocaine Cream [Emla 1 applic TOPICAL DAILY PRN 05/14/21 05/22/21 Cream 2.5%/2.5%] Nephro-Fred 0.8mg 1 tab PO DAILY 05/14/21 05/22/21 Calcium Acetate [PhosLo] 667 mg PO AC-TID 05/22/21 05/22/21 Previous Rx's Medication Instructions Recorded Isosorbide Mononitrate ER [Imdur] 60 mg PO DAILY #30 tablet 05/26/21 Metoprolol Tartrate [Lopressor] 25 mg PO BID #60 tab 05/26/21 Allergies Allergy/AdvReac Type Severity Reaction Status Date / Time No Known Allergies Allergy Verified 09/20/21 17:12 Review of Systems ROS Statement: Those systems with pertinent positive or pertinent negative responses have been documented in the HPI. ROS Other: All systems not noted in ROS Statement are negative. Constitutional: Denies: fever Eyes: Denies: eye pain ENT: Denies: ear pain Respiratory: Reports: dyspnea Cardiovascular: Denies: chest pain Endocrine: Reports: fatigue Gastrointestinal: Denies: abdominal pain Genitourinary: Denies: dysuria Musculoskeletal: Denies: back pain Skin: Denies: rash Neurological: Denies: weakness Past Medical History Past Medical History: Atrial Fibrillation, Coronary Artery Disease (CAD), Chest Pain / Angina, Heart Failure, GI Bleed, Hyperlipidemia, Hypertension, Myocardial Infarction (MA), Pneumonia, Renal Disease, Vascular Disorder Additional Past Medical History / Comment(s): 10/04/20 US TO CHECK FOR PATENCY OF DIALYSIS SHUNT. JUL 2020 ADMITTED FOR ANEMIA. ESRD with dialysis FOR MANY YEARS (, , ). 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 Iron deficiency anemia, Mineral bone disease, diverticulosis, colon polyp (removed), PVD , neck fx as a young person with seizures following last one years ago. Last Myocardial Infarction Date:: 2013 History of Any Multi-Drug Resistant Organisms: None Reported Past Surgical History: Heart Catheterization With Stent Additional Past Surgical History / Comment(s): 07/24/20 EGD. Bilateral cataract removal with lens implants, shunt L arm. Past Anesthesia/Blood Transfusion Reactions: No Reported Reaction Date of Last Stent Placement:: 2007 Past Psychological History: No Psychological Hx Reported, Anxiety Smoking Status: Current every day smoker, Light tobacco smoker Past Alcohol Use History: None Reported Past Drug Use History: None Reported - Past Family History Father Family Medical History: Myocardial Infarction (MA), Musculoskeletal Disorder Additional Family Medical History / Comment(s): Father at age 59 of a MA Mother Family Medical History: CVA/TIA Additional Family Medical History / Comment(s): Mother of a brain hemorrage. General Exam Limitations: no limitations General appearance: alert, in no apparent distress Head exam: Present: normocephalic Eye exam: Present: normal appearance Respiratory exam: Present: normal lung sounds bilaterally Cardiovascular Exam: Present: regular rate, normal rhythm GI/Abdominal exam: Present: soft. Absent: tenderness Extremities exam: Present: normal inspection. Absent: pedal edema, calf tenderness Neurological exam: Present: alert Psychiatric exam: Present: normal affect, normal mood Skin exam: Present: normal color Course Vital Signs 09/20/21 17:09 Temperature 97.9 F Pulse Rate 78 Respiratory 22 Rate Blood Pressure 180/90 O2 Sat by Pulse 92 L Oximetry EKG Findings - EKG Comments: EKG Findings:: Sinus rhythm with rate of 90. GA 164. QRS 148. QT 426. QTc 521. Normal axis. Right bundle branch block. No acute ST change. Medical Decision Making - Medical Decision Making Patient reevaluated. Patient and family updated on results and plan. Dr. Barnes contacted who will admit covering for Dr. Bowen. She does request consult with Dr. Oden as well as nephrology. Case was also discussed with Dr. Hilton who will arrange for dialysis. Patient is being admitted for dialysis, not secondary to COVID-19 infection and therefore is a candidate for monoclonal antibodies. He will receive this. - Lab Data Result diagrams: 09/20/21 18:09 09/20/21 18:09 Lab Results 09/20/21 09/20/21 09/20/21 Range/Units 18:09 18:09 18:09 WBC 10.9 H (3.8-10.6) k/uL RBC 3.85 L (4.30-5.90) m/uL Hgb 11.3 L (13.0-17.5) gm/dL Hct 35.5 L (39.0-53.0) % MCV 92.4 (80.0-100.0) fL MCH 29.4 (25.0-35.0) pg MCHC 31.8 (31.0-37.0) g/dL RDW 15.3 (11.5-15.5) % MPV 11.4 PT 10.9 (9.0-12.0) sec INR 1.0 (<1.2) APTT 25.4 (22.0-30.0) sec Sodium 142 (137-145) mmol/L Potassium 5.7 H (3.5-5.1) mmol/L Chloride 103 (98-107) mmol/L Carbon Dioxide 23 (22-30) mmol/L Anion Gap 16 mmol/L BUN 84 H (9-20) mg/dL Creatinine 9.64 H* (0.66-1.25) mg/dL Est GFR (CKD-EPI)AfAm 5 (>60 ml/min/1.73 sqM) Est GFR (CKD-EPI)NonAf 5 (>60 ml/min/1.73 sqM) Glucose 111 H (74-99) mg/dL Plasma Lactic Acid Gage (0.7-2.0) mmol/L Calcium 8.6 (8.4-10.2) mg/dL Total Bilirubin 1.2 (0.2-1.3) mg/dL AST 19 (17-59) U/L ALT 11 (4-49) U/L Alkaline Phosphatase 59 (38-126) U/L Total Protein 6.5 (6.3-8.2) g/dL Albumin 3.9 (3.5-5.0) g/dL Coronavirus (PCR) (Not Detectd) 09/20/21 09/20/21 Range/Units 18:09 18:09 WBC (3.8-10.6) k/uL RBC (4.30-5.90) m/uL Hgb (13.0-17.5) gm/dL Hct (39.0-53.0) % MCV (80.0-100.0) fL MCH (25.0-35.0) pg MCHC (31.0-37.0) g/dL RDW (11.5-15.5) % MPV PT (9.0-12.0) sec INR (<1.2) APTT (22.0-30.0) sec Sodium (137-145) mmol/L Potassium (3.5-5.1) mmol/L Chloride (98-107) mmol/L Carbon Dioxide (22-30) mmol/L Anion Gap mmol/L BUN (9-20) mg/dL Creatinine (0.66-1.25) mg/dL Est GFR (CKD-EPI)AfAm (>60 ml/min/1.73 sqM) Est GFR (CKD-EPI)NonAf (>60 ml/min/1.73 sqM) Glucose (74-99) mg/dL Plasma Lactic Acid Gage 1.1 (0.7-2.0) mmol/L Calcium (8.4-10.2) mg/dL Total Bilirubin (0.2-1.3) mg/dL AST (17-59) U/L ALT (4-49) U/L Alkaline Phosphatase (38-126) U/L Total Protein (6.3-8.2) g/dL Albumin (3.5-5.0) g/dL Coronavirus (PCR) Detected A (Not Detectd) - Radiology Data Radiology results: image reviewed (Chest x-ray shows some effusion and interstitial infiltrates) Disposition Clinical Impression: Chronic renal failure, COVID-19, Dyspnea Disposition: ADMITTED IP TO THIS HOSP Is patient prescribed a controlled substance at d/c from ED?: No Referrals: Edward Bowen MD [Primary Care Provider] - 1-2 days Decision Time: 19:21
[2021-09-20 18:35] LABS: Partial Thromboplastin Time 25.4 sec (22.0-30.0); Prothrombin Time 10.9 sec (9.0-12.0)
[2021-09-20 18:45] LABS: Albumin 3.9 g/dL (3.5-5.0); Calcium 8.6 mg/dL (8.4-10.2); Potassium 5.7 mmol/L (3.5-5.1); Total Bilirubin 1.2 mg/dL (0.2-1.3); Total Protein 6.5 g/dL (6.3-8.2)
[2021-09-20 18:47] LABS: Basophils % (A) 0 %; Eosinophils # (A) 0.1 k/uL (0-0.7); Eosinophils % (A) 1 %; HCT 35.5 % (39.0-53.0); HGB 11.3 gm/dL (13.0-17.5); Lymphocytes # (A) 1.1 k/uL (1.0-4.8); Lymphocytes % (A) 10 %; MCH 29.4 pg (25.0-35.0); MCHC 31.8 g/dL (31.0-37.0); MCV 92.4 fL (80.0-100.0); Mean Platelet Volume 11.4; Monocytes # (A) 0.6 k/uL (0-1.0); Monocytes % (A) 5 %; Neutrophils # (A) 9.1 k/uL (1.3-7.7); Neutrophils % (A) 83 %; Platelet Count 127 k/uL (150-450); RBC 3.85 m/uL (4.30-5.90); RDW 15.3 % (11.5-15.5); WBC 10.9 k/uL (3.8-10.6)
--- NOTE | 2021-09-20 19:08 | XR ---
EXAMINATION TYPE: XR chest 2V DATE OF EXAM: 09/20/2021 COMPARISON: NONE HISTORY: Short of breath TECHNIQUE: 2 views FINDINGS: There is slight blunting of the costophrenic angles. Heart size is normal. There is coarse interstitial density in the lungs. There is left-sided central venous catheter with tip in the superi or vena cava. IMPRESSION: There is some mild pulmonary interstitial infiltrates and small pleural effusions which a re new compared to old exam. Minimal heart failure is probably present.
[2021-09-20] MEDS ORDERED: NALOXONE 0.4 MG/ML 1 ML VIAL IV PRN (19:22)
[2021-09-20] MEDS ORDERED: SODIUM ZIRCONIUM CYCLOSILICATE 10 GM PACKET PO ONE (19:37)
[2021-09-20 19:53] LABS: Anisocytosis (M) Present; Large Platelets Present
[2021-09-20] MEDS ORDERED: SODIUM CHLORIDE 0.9% 50 ML IVPB ONE (20:00)
[2021-09-20] MEDS ORDERED: CASIRIVIMAB (REGN10933) (EUA) 600 MG, IMDEVIMAB (REGN10987) (EUA) 600 MG in SODIUM CHLO... IVPB ONE (20:00)
[2021-09-20] MEDS: ASCORBIC ACID 500 MG TAB PO SCH (20:13)
[2021-09-20] MEDS: CHOLECALCIFEROL 125 MCG (5000 IU) TABLET PO SCH (20:14)
[2021-09-21] MEDS: CHOLECALCIFEROL 125 MCG (5000 IU) TABLET PO SCH (08:44)
[2021-09-21] MEDS: ASCORBIC ACID 500 MG TAB PO SCH ×2 (08:44→21:55)
--- NOTE | 2021-09-21 10:03 | P.NPCON ---
History of Present Illness - Reason for Consult end stage renal disease - History of Present Illness Reason for consultation: End-stage renal disease History of present illness: Patient is a 81-year-old male seen in renal consultation for end-stage renal disease. He is maintained on hemodialysis on Wednesday schedule via permacath. Patient states last hemodialysis treatment was on Wednesday. Patient presented to the hospital with shortness of breath. Patient states he was exposed to COVID-19 last week and was then tested but the results were pending. Therefore he missed dialysis on and Wednesday. He is currently on 3 L is cannula. Blood pressure stable. He tested positive for coronavirus this admission. Chest x-ray showed pulmonary infiltrates and small pleural effusions. He denies vomiting or diarrhea. No edema. Scheduled for dialysis today. Vital signs are stable. General: On nasal cannula. HEENT: Head exam is unremarkable. LUNGS: Breath sounds decreased. HEART: Rate and Rhythm are regular. ABDOMEN: Soft, no distention. EXTREMITITES: No edema. Past Medical History Past Medical History: Atrial Fibrillation, Coronary Artery Disease (CAD), Chest Pain / Angina, Heart Failure, Dementia, GI Bleed, Hyperlipidemia, Hypertension, Memory Impairment, Myocardial Infarction ([place]), Pneumonia, Renal Disease, Vascular Disorder Additional Past Medical History / Comment(s): 10/04/20 US TO CHECK FOR PATENCY OF DIALYSIS SHUNT. JUL 2020 ADMITTED FOR ANEMIA. ESRD with dialysis FOR MANY YEARS (, , ). Blind in right eye. Iron deficiency anemia, Mineral bone disease, diverticulosis, colon polyp (removed), PVD , neck fx as a young person with seizures following last one years ago. Last Myocardial Infarction Date:: 2013 History of Any Multi-Drug Resistant Organisms: None Reported Past Surgical History: Heart Catheterization With Stent Additional Past Surgical History / Comment(s): 07/24/20 EGD. Bilateral cataract removal with lens implants, shunt L arm. Past Anesthesia/Blood Transfusion Reactions: No Reported Reaction Date of Last Stent Placement:: 2007 Past Psychological History: No Psychological Hx Reported, Anxiety Additional Psychological History / Comment(s): Pt resides with his daughter, Sarai. Daughter manages his meds. He uses a cane at home. He is independent with his ADLs. He no longer drives He has no home care agency. Smoking Status: Current every day smoker, Light tobacco smoker Past Alcohol Use History: None Reported Additional Past Alcohol Use History / Comment(s): Pt started smoking in 1955. Patient smokes 4 cigarettes a day. Past Drug Use History: None Reported - Past Family History Father Family Medical History: Myocardial Infarction ([place]), Musculoskeletal Disorder Additional Family Medical History / Comment(s): Father at age 59 of a [place] Mother Family Medical History: CVA/TIA Additional Family Medical History / Comment(s): Mother of a brain hemorrage. Medications and Allergies Home Medications Medication Instructions Recorded Confirmed Type Atorvastatin Calcium [Lipitor] 40 mg PO DAILY 07/02/20 09/20/21 History Pantoprazole [Protonix] 40 mg PO DAILY 07/20/20 09/20/21 History Vit C/E/Zn/Coppr/Lutein/Zeaxan 1 cap PO BID 10/04/20 09/20/21 History [Preservision Areds 2 Softgel] Lidocaine-Prilocaine Cream [Emla 1 applic TOPICAL DAILY PRN 05/14/21 09/20/21 History Cream 2.5%/2.5%] Calcium Acetate [PhosLo] 667 mg PO AC-TID 05/22/21 09/20/21 History Isosorbide Mononitrate ER [Imdur] 60 mg PO DAILY #30 tablet 05/26/21 09/20/21 Rx Azithromycin [Zithromax Z-pack (6 See Taper PO DAILY 09/20/21 09/20/21 History tabs)] Chlorpheniramine/Dextromethorp 2 tab PO Q6H PRN 09/20/21 09/20/21 History [Coricidin Hbp Cough & Cold Tab] Metoprolol Tartrate [Lopressor] 12.5 mg PO BID 09/20/21 09/20/21 History Oxymetazoline 0.05% Nasl [place] 2 spr EA NOSTRIL TID PRN 09/20/21 09/20/21 History [Afrin 0.05% Nasal [place]] guaiFENesin [Mucinex] 600 mg PO BID PRN 09/20/21 09/20/21 History methylPREDNISolone [Medrol Dose See Taper PO DIRECTED 09/20/21 09/20/21 History Pack] Allergies Allergy/AdvReac Type Severity Reaction Status Date / Time No Known Allergies Allergy Verified 01/08/22 19:49 Physical Exam Vitals: Vital Signs Temp Pulse Pulse Resp BP BP Pulse Ox 09/21/21 05:20 97.8 F 78 18 165/86 97 09/21/21 01:16 98.2 F 77 18 189/83 98 09/20/21 23:05 98.3 F 83 20 163/86 97 09/20/21 21:12 53 L 18 155/92 91 L 09/20/21 17:09 97.9 F 78 22 180/90 92 L Intake and Output 09/20/21 09/21/21 09/21/21 22:59 06:59 14:59 Other: Weight 68.039 kg 68.039 kg Results - Lab Results Most recent lab results Calcium 8.6 mg/dL (8.4-10.2) 09/20/21 18:09 09/20/21 18:09 09/20/21 18:09 Assessment and Plan Plan: Assessment: 1. End-stage renal disease maintained on hemodialysis on Wednesday schedule via permacath. 2. Acute hypoxic respiratory failure. 3. COVID-19 pneumonia. 4. Hyperkalemia secondary to chronic kidney disease and missed dialysis. Sample on admission was also hemolyzed. 5. Chronic kidney disease mineral bone disease. Plan: Hemodialysis today. At this time patient states he does not want a treatment tomorrow. Add hydralazine 25 mg 3 times daily. To be held for systolic blood pressure l ess than 125. Check phosphorus level. Thank you for the consultation. I will continue to follow the patient with you during his hospital stay.
[2021-09-21] MEDS: hydrALAZINE HCL 25 MG TAB PO SCH ×3 (12:41→17:28)
[2021-09-21] MEDS ORDERED: SODIUM CHLORIDE 0.9% 250 ML IV ONE (14:10)
[2021-09-21] MEDS ORDERED: SODIUM CHLORIDE 0.9% 500 ML 500 ML IV ONE (14:10)
--- NOTE | 2021-09-21 14:15 | CONS ---
CONSULTATION HISTORY OF PRESENT ILLNESS: This is an 81 -year-old gentleman well known to me from the past. The patient had a history of acute on chronic renal failure. Patient had missed dialysis x2 last week. The patient was positive for Covid 19, then they repeated the test. Test is pending. The patient came with shortness of breath and I was consulted for placement of dialysis catheter. PAST MEDICAL HISTORY: The patient has atrial fibrillation, coronary artery disease, heart failure, dementia, GI bleed, hyperlipidemia, hypertension, memory impairment. PAST SURGICAL HISTORY: Patient had a fistula placed in the past, which has been occluded x2. PERSONAL HISTORY: History of smoking. PHYSICAL EXAMINATION: NECK: Supple. Trachea central. CHEST: Clear. LUNGS: There is some crackles at the lung bases. ABDOMEN: Soft. Femorals are 1+. PLAN: Placement of the dialysis catheter. Risks and complications discussed. MMFANNIEL / AUSTINN: [id number] /
[2021-09-21] MEDS ORDERED: LIDOCAINE 1% INJ 10MG/ML (20 ML MDV) SQ ONE (14:16)
[2021-09-21] MEDS: fentaNYL (PF) 50 MCG/ML 2 ML AMP IV ONE ×2 (14:18→14:28)
[2021-09-21] MEDS ORDERED: LIDOCAINE 1% INJ 10MG/ML (20 ML MDV) IV ONE (14:55)
--- NOTE | 2021-09-21 15:39 | P.CNPUL ---
History of Present Illness Consult date: 09/21/21 Requesting physician: Carole Barnes Reason for consult: dyspnea, hypoxemia, pneumonia, abnormal CXR/CT Chief complaint: Shortness of breath. History of present illness: Pulmonary consult dated 09/21/2021. 81-year-old male, who presents to the emergency department on September 20, complaining of shortness of breath. The patient was exposed to coronavirus earlier in the week. The patient had his dialysis last on Wednesday. The patient did test positive for coronavirus on September 20. He sees Dr. Gonzalez for his kidney failure, and he typically has hemodialysis on Wednesday, , and Wednesday. The patient's currently on 3 L nasal cannula. He's not receiving any IV fluids. The patient denies any cough or phlegm production. He denies any fever or chills. He denies any chest pain. He also denies any nausea, vomiting, diarrhea, or abdominal pain. The patient has a history of atrial f ibrillation, coronary artery disease, heart failure, GI bleed, hyperlipidemia, hypertension, myocardial infarction, and iron deficiency anemia. The patient continues to smoke cigarettes. Current laboratory data includes a white count hemoglobin 11.3, hematocrit 35.5, and a platelet count of 127,000. Sodium 142, potassium 5.7, chlorides 103, carbon dioxide 23, anion gap 16, BUN 84, and creatinine 9.64. Glucose 111. Repeat potassium is 4.8. N-terminal proBNP was 165,000. Coronavirus testing was positive. Chest x-ray shows some bilateral infiltrates, which could relate to coronavirus infection, and heart failure, or both. Review of Systems REVIEW OF SYSTEMS: CONSTITUTIONAL: [Negative.] NEUROLOGIC: [ Negative.] HEENT: [ Negative.] CARDIAC: [Negative.] PULMONARY: Shortness of breath. GI: [Negative.] : [Negative.] RHEUMATOLOGIC: [ Negative.] IMMUNOLOGIC: [ Negative.] ENDOCRINE: [Negative. ] DERMATOLOGIC: [Negative.] Past Medical History Past Medical History: Atrial Fibrillation, Coronary Artery Disease (CAD), Chest Pain / Angina, Heart Failure, Dementia, GI Bleed, Hyperlipidemia, Hypertension, Memory Impairment, Myocardial Infarction ([place]), Pneumonia, Renal Disease, Vascular Disorder Additional Past Medical History / Comment(s): 10/04/20 US TO CHECK FOR PATENCY OF DIALYSIS SHUNT. JUL 2020 ADMITTED FOR ANEMIA. ESRD with dialysis FOR MANY YEARS (, , ). Blind in right eye. Iron deficiency anemia, Mineral bone disease, diverticulosis, colon polyp (removed), PVD , neck fx as a young person with seizures following last one years ago. Last Myocardial Infarction Date:: 2013 History of Any Multi-Drug Resistant Organisms: None Reported Past Surgical History: Heart Catheterization With Stent Additional Past Surgical History / Comment(s): 07/24/20 EGD. Bilateral cataract removal with lens implants, shunt L arm. Past Anesthesia/Blood Transfusion Reactions: No Reported Reaction Date of Last Stent Placement:: 2007 Past Psychological History: No Psychological Hx Reported, Anxiety Additional Psychological History / Comment(s): Pt resides with his daughter, Sarai. Daughter manages his meds. He uses a cane at home. He is independent with his ADLs. He no longer drives He has no home care agency. Smoking Status: Current every day smoker, Light tobacco smoker Past Alcohol Use History: None Reported Additional Past Alcohol Use History / Comment(s): Pt started smoking in 1954. Patient smokes 4 cigarettes a day. Past Drug Use History: None Reported - Past Family History Father Family Medical History: Myocardial Infarction ([place]), Musculoskeletal Disorder Additional Family Medical History / Comment(s): Father at age 59 of a [place] Mother Family Medical History: CVA/TIA Additional Family Medical History / Comment(s): Mother of a brain hemorrage. Medications and Allergies Home Medications Medication Instructions Recorded Confirmed Type Atorvastatin Calcium [Lipitor] 40 mg PO DAILY 07/02/20 09/20/21 History Pantoprazole [Protonix] 40 mg PO DAILY 07/20/20 09/20/21 History Vit C/E/Zn/Coppr/Lutein/Zeaxan 1 cap PO BID 10/04/20 09/20/21 History [Preservision Areds 2 Softgel] Lidocaine-Prilocaine Cream [Emla 1 applic TOPICAL DAILY PRN 05/14/21 09/20/21 History Cream 2.5%/2.5%] Calcium Acetate [PhosLo] 667 mg PO AC-TID 05/22/21 09/20/21 History Isosorbide Mononitrate ER [Imdur] 60 mg PO DAILY #30 tablet 05/26/21 09/20/21 Rx Azithromycin [Zithromax Z-pack (6 See Taper PO DAILY 09/20/21 09/20/21 History tabs)] Chlorpheniramine/Dextromethorp 2 tab PO Q6H PRN 09/20/21 09/20/21 History [Coricidin Hbp Cough & Cold Tab] Metoprolol Tartrate [Lopressor] 12.5 mg PO BID 09/20/21 09/20/21 History Oxymetazoline 0.05% Nasl [place] 2 spr EA NOSTRIL TID PRN 09/20/21 09/20/21 History [Afrin 0.05% Nasal [place]] guaiFENesin [Mucinex] 600 mg PO BID PRN 09/20/21 09/20/21 History methylPREDNISolone [Medrol Dose See Taper PO DIRECTED 09/20/21 09/20/21 History Pack] Allergies Allergy/AdvReac Type Severity Reaction Status Date / Time No Known Allergies Allergy Verified 09/20/21 19:49 Physical Exam Osteopathic Statement: *. No significant issues noted on an osteopathic structural exam other than those noted in the History and Physical/Consult. Vitals: Vital Signs Temp Pulse Pulse Resp BP BP Pulse Ox 09/21/21 10:00 98.1 F 78 19 167/94 94 L 09/21/21 08:50 18 09/21/21 05:20 97.8 F 78 18 165/86 97 09/21/21 01:16 98.2 F 77 18 189/83 98 09/20/21 23:05 98.3 F 83 20 163/86 97 09/20/21 21:12 53 L 18 155/92 91 L 09/20/21 17:09 97.9 F 78 22 180/90 92 L Intake and Output 09/21/21 09/21/21 09/21/21 06:59 14:59 22:59 Intake Total 50 Balance 50 Intake: IV 50 Other: Weight 68.039 kg No acute distress, oriented 3. Currently on 3 L nasal cannula. Saturations are 98%. Room air saturation 94%. HEENT examination is grossly unremarkable. Neck supple. Full range of motion. No adenopathy thyromegaly or neck vein distention. Cardiovascular examination reveals regular rhythm rate. S1-S2 normal. No S3 or S4. No discernible murmur noted. Heart rate 70 bpm. Lungs reveal scattered bilateral basilar crackles, and occasional coarse rhonchi. No wheezes. Breath sounds equal bilaterally. Air exchange is reasonable. Abdomen soft bowel sounds are heard. No masses or tenderness. Extremities are intact. No cyanosis clubbing or edema. Skin is without rash or lesion. Neurologic examination is brief but nonfocal. Results - Laboratory Findings CBC and BMP: 09/20/21 18:09 09/21/21 10:49 PT/INR, D-dimer PT 10.9 sec (9.0-12.0) 09/20/21 18: INR 1.0 (<1.2) 09/20/21 18:09 Abnormal lab findings: Abnormal Labs 09/20/21 09/20/21 09/20/21 18: 18:09 18:09 WBC 10.9 H RBC 3.85 L Hgb 11.3 L Hct 35.5 L Plt Count 127 L Neutrophils # 9.1 H Potassium 5.7 H BUN 84 H Creatinine 9.64 H* Glucose 111 H Coronavirus (PCR) Detected A - Diagnostic Findings Chest x-ray: image reviewed Assessment and Plan Assessment: Shortness of breath, which may relate to fluid overload secondary to the patient's end-stage renal disease, and/or mild coronavirus associated pneumonia. History of end-stage renal disease, currently on Wednesday//Wednesday hemodialysis. History of hyperlipidemia. History of hypertension. History of CAD, with prior history of myocardial infarction, and prior stent placement. History of GI bleed. History of atrial fibrillation. History of congestive heart failure. History of iron deficiency anemia. History of diverticular disease. History of ongoing tobacco use. Plan: Plan dated 09/21/2019. The patient's hemodialysis catheter has become nonfunctional. One of the vascular surgeons has been consulted. The patient is currently on vitamin C, and vitamin D3. I will also add some Decadron, 6 mg once a day. Additional recommendations and suggestions are forthcoming. The patient will be followed closely. Prognosis is guarded. Time with Patient: Greater than 30
[2021-09-21] MEDS ORDERED: OXYMETAZOLINE 0.05% NASL SPRAY 1 SPRAY BOTTLE EA NOSTRIL PRN (16:33)
[2021-09-21] MEDS ORDERED: guaiFENesin 600 MG TABLET.ER PO PRN (16:33)
--- NOTE | 2021-09-21 17:06 | PCN ---
PROCEDURE NOTE PREOPERATIVE DIAGNOSES: Acute on chronic renal failure, Covid positive. Occluded left IJ catheter. POSTOPERATIVE DIAGNOSES: Acute on chronic renal failure, Covid positive. Occluded left IJ catheter. PROCEDURE PERFORMED: Placement of a 30 cm dialysis catheter right femoral approach. DESCRIPTION OF PROCEDURE: This patient was brought to the laboratory mechanic helper and right groin was prepped and drapes applied in the usual sterile manner. Ultrasound-guided micropuncture into the right femoral vein. Micropuncture guide was passed and a 4-Portuguese dilator was advanced on the top of the guidewire. Then we passed a regular guidewire without any resistance. A tunnel was created. Through the tunnel we brought the 30 cm permanent dialysis catheter. After that we passed dilator and then we advanced the sheath on the top of the guidewire. Through the sheath, we placed a 30 cm dialysis catheter. Tip of the catheter was in the inferior vena cava and flushed with heparin saline and hep-locked and secured with 3-0 nylon. Dressing applied. Patient tolerated the procedure well. The old catheter from the left IJ was removed. Dressing applied. Patient tolerated the procedure well. MMODL / IJN: [id number] /
[2021-09-21] MEDS: ACETAMINOPHEN TAB 325 MG TAB PO PRN ×2 (17:30→22:58)
[2021-09-21] MEDS ORDERED: ONDANSETRON 4 MG/2 ML VIAL IVP PRN (19:08)
[2021-09-21] MEDS: CALCIUM ACETATE 667 MG TAB PO SCH (19:08)
[2021-09-21] MEDS ORDERED: METOPROLOL TARTRATE 12.5 MG TAB PO SCH (21:00)
[2021-09-21] MEDS ORDERED: MELATONIN 5 MG TABLET PO ONE (21:00)
--- NOTE | 2021-09-22 00:37 | P.HPIM ---
History of Present Illness This is a pleasant 81 years old male with past medical history of trial Fibrillation on blood thinner, Coronary Artery Disease Heart Failure, Dementia, GI Bleed, Hyperlipidemia, Hypertension, end-stage renal disease on hemodialysis, coronary artery disease status post stent, nicotine dependence, chronic hypoxic respiratory failure and ventilator oxygen via nasal cannula most likely secondary to history of COPD although there is no official diagnosis for COPD His echocardiogram from 06/2020 showed ejection fraction of 30-35% Patient states he came because his tested positive for Covid yesterday his daughter and son-in-law at [facility] for the last few days he himself has been feeling a little short of breath with Yellow Phlegm with 3 Days Duration. No Chest Pain. No Diarrhea. No Vomiting Although He States That He Has Low Appetite over the Last 2 Months but It Was More Worse over the Last 2 Days. He Got Covid Faxing about 2 Months Ago and He Got the Posterior about 2 Weeks Ago. At Home He Is on 2 L Oxygen Via Nasal Cannula I His PCP Dr. Bowen over Last Few years. He does not follow up with coatings inspector, he doesn't have official diagnosis of COPD however he is every day smoker about 4 cigarettes per day, he was consulted and he does not want to quit and he does not want nicotine patch but he denies alcohol or illicit drugs Usually he ambulates using a cane He is hemodynamically stable and saturating 92% on 3 L oxygen via nasal cannula, he is ventilator oxygen at home Labs showing WBC slightly elevated 10.9, hemoglobin slightly low at 11.3, platelets slightly low 127. INR is 1.0. Potassium is 4.8. Creatinine 9.6, lactic acid 1.1, liver enzymes not elevated, proBNP is [id number] Garsia varus detected Chest x-ray showing mild pulmonary interstitial infiltrates and small pleural effusions which are new compared to old exam, minimal heart failure is probably present EKG showing sinus rhythm at 90 BPM with frequent PVC and QTC 521, no significant ST-T changes. Review of Systems CONSTITUTIONAL: No fever, no malaise, no fatigue. HEENT: No recent visual problems or hearing problems. Denied any sore throat. CARDIOVASCULAR: No orthopnea, PND, no palpitations, no syncope. PULMONARY: No chest wall tenderness, no hemoptysis. GASTROINTESTINAL: No diarrhea, no nausea, no vomiting, no abdominal pain. Normoactive bowel sounds. NEUROLOGICAL: No headaches, no weakness, no numbness. HEMATOLOGICAL: Denies any bleeding or petechiae. GENITOURINARY: Denies any burning micturition, frequency, or urgency. MUSCULOSKELETAL/RHEUMATOLOGICAL: Denies any joint pain, swelling, or any muscle pain. ENDOCRINE: Denies any polyuria or polydipsia. Past Medical History Past Medical History: Atrial Fibrillation, Coronary Artery Disease (CAD), Chest Pain / Angina, Heart Failure, Dementia, GI Bleed, Hyperlipidemia, Hypertension, Memory Impairment, Myocardial Infarction (UT), Pneumonia, Renal Disease, Vascular Disorder Additional Past Medical History / Comment(s): 10/04/20 US TO CHECK FOR PATENCY OF DIALYSIS SHUNT. JUL 2020 ADMITTED FOR ANEMIA. ESRD with dialysis FOR MANY YEARS (, , ). Blind in right eye. Iron deficiency anemia, Mineral bone disease, diverticulosis, colon polyp (removed), PVD , neck fx as a young person with seizures following last one years ago. Last Myocardial Infarction Date:: 2013 History of Any Multi-Drug Resistant Organisms: None Reported Past Surgical History: Heart Catheterization With Stent Additional Past Surgical History / Comment(s): 07/24/20 EGD. Bilateral cataract removal with lens implants, shunt L arm. Past Anesthesia/Blood Transfusion Reactions: No Reported Reaction Date of Last Stent Placement:: 2007 Past Psychological History: No Psychological Hx Reported, Anxiety Additional Psychological History / Comment(s): Pt resides with his daughter, Sarai. Daughter manages his meds. He uses a cane at home. He is independent with his ADLs. He no longer drives He has no home care agency. Smoking Status: Current every day smoker, Light tobacco smoker Past Alcohol Use History: None Reported Additional Past Alcohol Use History / Comment(s): Pt started smoking in 1955. Patient smokes 4 cigarettes a day. Past Drug Use History: None Reported - Past Family History Father Family Medical History: Myocardial Infarction (UT), Musculoskeletal Disorder Additional Family Medical History / Comment(s): Father at age 59 of a UT Mother Family Medical History: CVA/TIA Additional Family Medical History / Comment(s): Mother of a brain hemorrage. Medications and Allergies Home Medications Medication Instructions Recorded Confirmed Type Atorvastatin Calcium [Lipitor] 40 mg PO DAILY 07/02/20 09/20/21 History Pantoprazole [Protonix] 40 mg PO DAILY 07/20/20 09/20/21 History Vit C/E/Zn/Coppr/Lutein/Zeaxan 1 cap PO BID 10/04/20 09/20/21 History [Preservision Areds 2 Softgel] Lidocaine-Prilocaine Cream [Emla 1 applic TOPICAL DAILY PRN 05/14/21 09/20/21 History Cream 2.5%/2.5%] Calcium Acetate [PhosLo] 667 mg PO AC-TID 05/22/21 09/20/21 History Isosorbide Mononitrate ER [Imdur] 60 mg PO DAILY #30 tablet 05/26/21 09/20/21 Rx Azithromycin [Zithromax Z-pack (6 See Taper PO DAILY 09/20/21 09/20/21 History tabs)] Chlorpheniramine/Dextromethorp 2 tab PO Q6H PRN 09/20/21 09/20/21 History [Coricidin Hbp Cough & Cold Tab] Metoprolol Tartrate [Lopressor] 12.5 mg PO BID 09/20/21 09/20/21 History Oxymetazoline 0.05% Nasl Butler 2 spr EA NOSTRIL TID PRN 09/20/21 09/20/21 History [Afrin 0.05% Nasal Butler] guaiFENesin [Mucinex] 600 mg PO BID PRN 09/20/21 09/20/21 History methylPREDNISolone [Medrol Dose See Taper PO DIRECTED 09/20/21 09/20/21 History Pack] Zolpidem [Ambien] 5 mg PO HS 09/21/21 09/21/21 History Allergies Allergy/AdvReac Type Severity Reaction Status Date / Time No Known Allergies Allergy Verified 09/20/21 19:49 Physical Exam Vitals: Vital Signs Temp Pulse Pulse Resp BP BP Pulse Ox 09/21/21 15:47 98 F 81 16 165/77 99 09/21/21 10:00 98.1 F 78 19 167/94 94 L 09/21/21 08:50 18 09/21/21 05:20 97.8 F 78 18 165/86 97 09/21/21 01:16 98.2 F 77 18 189/83 98 09/20/21 23:05 98.3 F 83 20 163/86 97 09/20/21 21:12 53 L 18 155/92 91 L 09/20/21 17:09 97.9 F 78 22 180/90 92 L Intake and Output 09/21/21 09/21/21 09/21/21 06:59 14:59 22:59 Intake Total 50 Balance 50 Intake: IV 50 Other: Weight 68.039 kg GENERAL: The patient is alert and oriented x3, not in any acute distress. Well developed, well nourished. HEENT: Pupils are round and equally reacting to light. EOMI. No scleral icterus. No conjunctival pallor. Normocephalic, atraumatic. No pharyngeal erythema. No thyromegaly. CARDIOVASCULAR: S1 and S2 present. No murmurs, rubs, or gallops. -PULMONARY: Chest is clear to auscultation, no wheezing . Bilateral scattered or crackles. ABDOMEN: Soft, nontender, nondistended, normoactive bowel sounds. No palpable organomegaly. MUSCULOSKELETAL: No joint swelling or deformity. EXTREMITIES: No cyanosis, clubbing, or pedal edema. NEUROLOGICAL: Gross neurological examination did not reveal any focal deficits. SKIN: No rashes. No petechiae Results CBC & Chem 7: 09/20/21 18:09 09/21/21 10:49 Labs: Abnormal Lab Results - Last 24 Hours (Table) 09/20/21 09/20/21 09/20/21 Range/Units 18:09 18:09 18:09 WBC 10.9 H (3.8-10.6) k/uL RBC 3.85 L (4.30-5.90) m/uL Hgb 11.3 L (13.0-17.5) gm/dL Hct 35.5 L (39.0-53.0) % Plt Count 127 L (150-450) k/uL Neutrophils # 9.1 H (1.3-7.7) k/uL Potassium 5.7 H (3.5-5.1) mmol/L BUN 84 H (9-20) mg/dL Creatinine 9.64 H* (0.66-1.25) mg/dL Glucose 111 H (74-99) mg/dL Coronavirus (PCR) Detected A (Not Detectd) Thrombosis Risk Factor Assmnt - Choose All That Apply Each Factor Represents 1 point: Serious lung disease incl. pneumonia (< 1month) Each Risk Factor Represents 3 Points: Age 75 years or older Thrombosis Risk Factor Assessment Total Risk Factor Score: 4 Thrombosis Risk Factor Assessment Level: Moderate Risk Assessment and Plan Assessment: Acute Bilateral Covid pneumonia Acute hypoxic respiratory failure Increased inflammatory markers Hypertension Nicotine dependence End-stage renal disease on hemodialysis chronic hypoxic respiratory failure most likely due to history of COPD Chronic atrial fibrillation, not on a blood thinner for history of GI bleed History of coronary artery disease Chronic systolic heart failure secondary to ischemic cardiomyopathy with ejection fraction of 30-35% Hyperlipidemia Plan: this is a pleasant 81 years old male who presents with Bilateral Covid pneumonia and hypoxia Continue with vitamin C, vitamin D, and zinc. Continue with dexamethasone Pulmonary team consult Labs and medication were reviewed.. Continue same treatment. Continue with symptomatic treatment. Resume home medication. Monitor lytes and vitals. DVT and GI prophylaxis. Further recommendations depends on the clinical course of the patient DVT prophylaxis: Subcutaneous heparin GI Prophylaxis: Pepcid PT/OT: Pending Prognosis is guarded
[2021-09-22] MEDS: METOPROLOL TARTRATE 25 MG TAB PO SCH ×2 (06:18→08:28)
[2021-09-22] MEDS: CHOLECALCIFEROL 125 MCG (5000 IU) TABLET PO SCH (08:28)
[2021-09-22] MEDS: ZINC SULFATE 220 MG CAP PO SCH (08:28)
[2021-09-22] MEDS: HEPARIN SODIUM,PORCINE/PF 5,000 UNIT/0.5 ML SYRINGE SQ SCH ×2 (08:28→20:18)
[2021-09-22] MEDS: ASCORBIC ACID 500 MG TAB PO SCH ×2 (08:28→20:18)
[2021-09-22] MEDS: CALCIUM ACETATE 667 MG TAB PO SCH ×3 (08:28→17:06)
[2021-09-22] MEDS: PANTOPRAZOLE 40 MG TABLET PO SCH (08:28)
[2021-09-22] MEDS: ATORVASTATIN 40 MG TAB PO SCH (08:28)
[2021-09-22] MEDS: dexAMETHasone 2 MG TAB PO SCH (08:28)
--- NOTE | 2021-09-22 09:12 | IR ---
EXAMINATION TYPE: IR cvc insert central tunneled DATE OF EXAM: 09/21/2021 CLINICAL HISTORY: Failed dialysis. TECHNIQUE: Fluoroscopy. COMPARISON: None. FINDINGS: Fluoroscopic guidance was provided during right femoral dialysis catheter insertion proced ure performed by Dr. Shafer. A total of 12.4 minutes of fluoroscopic time was utilized during the p rocedure and 113 spot images was acquired. Images sent to PACS show large bore right internal jugular dual lumen dialysis CATHETER extending into IVC. IMPRESSION: As Above.
[2021-09-22 09:58] LABS: Hepatitis B Surface Antibody Reactive (Nonreactive); Hepatitis B Surface Antigen Nonreactive (Nonreactive)
[2021-09-22] MEDS: hydrALAZINE HCL 25 MG TAB PO SCH ×2 (11:46→12:17)
[2021-09-22] MEDS: ISOSORBIDE MONONITRATE ER 60 MG TAB.ER.24H PO SCH (11:46)
--- NOTE | 2021-09-22 15:36 | P.PN ---
Subjective Progress Note Date: 09/22/21 81-year-old male, who presents to the emergency department on September 20, complaining of shortness of breath. The patient was exposed to coronavirus earlier in the week. The patient had his dialysis last on Wednesday. The patient did test positive for coronavirus on September 20. He sees Dr. Gonzalez for his kidney failure, and he typically has hemodialysis on Wednesday, , and Wednesday. The patient's currently on 3 L nasal cannula. He's not receiving any IV fluids. The patient denies any cough or phlegm production. He denies any fever or chills. He denies any chest pain. He also denies any nausea, vomiting, diarrhea, or abdominal pain. The patient has a history of atrial fibrillation, coronary artery disease, heart failure, GI bleed, hyperlipidemia, hypertension, myocardial infarction, and iron deficiency anemia. The patient continues to smoke cigarettes. Current laboratory data includes a white count hemoglobin 11.3, hematocrit 35.5, and a platelet count of 127,000. Sodium 142, potassium 5.7, chlorides 103, carbon dioxide 23, anion gap 16, BUN 84, and creatinine 9.64. Glucose 111. Repeat potassium is 4.8. N-terminal proBNP was 165,000. Coronavirus testing was positive. Chest x-ray shows some bilateral infiltrates, which could relate to coronavirus infection, and heart failure, or both. On today's evaluation of 09/22/2021, seeing the patient for a follow-up. The patient is a case of COVID 19 related infection/pneumonia. The patient on hemodialysis 3 times a week TTS. The patient's last hemodialysis was yesterday. This morning, he has no specific complaints. He remains on Decadron 6 mg by mouth daily basis. He is on 3 Levoxyl by nasal cannula with a pulse of 96%. He did have some episodes of dry cough. He is afebrile. He is hemodynamically stable. No hypotension. No recent blood work from today. Nephrology on the case regarding periodic need of hemodialysis. Note that the chest x-ray that was done time of admission showed some mild intensive pulmonary infiltrates. No other significant consolidation. The patient states that he has history of COPD. A smoker and he smokes him for significantly daily basis. He typically ambulate with the help of a cane. He has comorbidities including dialysis dependent renal failure, dementia, coronary artery disease, hypertension, hyperlipidemia, previous history of coronary stenting, chronic hypoxic respiratory failure and the patient had an echocardiogram from 2019 that showed systolic heart failure with ejection fraction of around 30-35%. Objective - Vital Signs Vital signs: Vital Signs Temp 97.8 F 09/22/21 10:00 Pulse 122 H 09/22/21 10:00 Resp 19 09/22/21 10:00 BP 129/74 09/22/21 10:00 Pulse Ox 96 09/22/21 10:00 Intake & Output 09/21/21 09/22/21 09/22/21 18:59 06:59 18:59 Intake Total 50 300 Output Total 2300 Balance 50 -2000 Intake: IV 50 Hemodialysis 300 Output: Hemodialysis 2300 Other: # Voids 0 0 - Exam No acute distress, oriented 3. Currently on 3 L nasal cannula. Saturations are 98%. Room air saturation 94%. HEENT examination is grossly unremarkable. Neck supple. Full range of motion. No adenopathy thyromegaly or neck vein distention. Cardiovascular examination reveals regular rhythm rate. S1-S2 normal. No S3 or S4. No discernible murmur noted. Lungs reveal scattered bilateral basilar crackles, and occasional coarse rhonchi. No wheezes. Breath sounds equal bilaterally. Air exchange is reasonable. Abdomen soft bowel sounds are heard. No masses or tenderness. Extremities are intact. No cyanosis clubbing or edema. Skin is without rash or lesion. Neurologic examination is brief but nonfocal. - Labs CBC & Chem 7: 09/20/21 18:09 09/21/21 10:49 Labs: Abnormal Lab Results - Last 24 Hours (Table) 09/21/21 Range/Units 18:00 Hep Bs Antibody Reactive A (Nonreactive) Assessment and Plan Plan: 1 Shortness of breath, which may relate to fluid overload secondary to the patient's end-stage renal disease, and/or mild coronavirus associated pneumonia. The patient is clinically improved. The patient underwent hemodialysis yesterday. Currently on 3 L oxygen nasal cannula. The patient is also on Decadron regarding COVID 19 related to pneumonia possibility 2 acute COVID 19 related infection possibly component of pneumonia 3 History of end-stage renal disease, currently on Wednesday//Wednesday hemodialysis. 4 Coronary artery disease 5 cardiomyopathy with systolic heart failure ejection fraction of around 30-35% 6 History of hyperlipidemia. 7 History of hypertension. 8 History of CAD, with prior history of myocardial infarction, and prior stent placement. 9 History of GI bleed. 10 History of atrial fibrillation. 11 History of iron deficiency anemia. 12 History of diverticular disease. 13 History of ongoing tobacco use 14 COPD Plan Continue titrating the FiO2 to maintain saturation above 90%, currently on 3 L Continue Decadron Continue vitamin C and vitamin E and zinc Hemodialysis per nephrology Overall condition is stable and will continue to follow. Less short of breath compared to yesterday.
--- NOTE | 2021-09-22 17:19 | PN ---
PROGRESS NOTE The patient is seen for followup for end-stage renal disease. The patient's IJ catheter was not for working and he did not get his treatment yesterday. The patient had a right femoral catheter placed and he is scheduled for hemodialysis today and then again in a.m. as tomorrow is his regular day. PHYSICAL EXAMINATION: On examination today, blood pressure this morning 129/74, heart rate 120 per minute. Patient is afebrile. Examination of the heart S1, S2. Examination of lungs decreased breath sounds at the bases. Abdomen is soft, nontender. Examination lower extremities shows no significant edema. COMMISSIONING ENGINEER exam is grossly intact. LAB: Show sodium 142, potassium 5.7. Repeat was 4.8. These were drawn on September 20 with creatinine 9.6. ASSESSMENT: 1. End stage renal disease, on hemodialysis on a Wednesday, , Wednesday schedule. 2. Hyperkalemia associated with not having had dialysis. Expect improvement post hemodialysis. 3. Malfunctioning left IJ catheter status post removal, currently with right femoral catheter. Patient is planning to do peritoneal dialysis down the road. 4. Positive coronavirus PCR with chest x-ray showing interstitial infiltrates, possibly interstitial edema, being followed by Pulmonary maintained on 3 L nasal cannula, getting steroids. 5. Volume overload scheduled for treatment today and then again in a.m. 6. History of coronary artery disease. 7. Cardiomyopathy, ejection fraction 30-35%. 8. CKD mineral bone disorder. Continue with the PhosLo. PLAN: Hemodialysis today and then again in a.m. Continue treatment of underlying COVID infection. Decrease antihypertensive medications as blood pressure is low. MMODL / IJN: [id number] /
[2021-09-22] MEDS: METOPROLOL TARTRATE 50 MG TAB PO SCH (20:17)
[2021-09-22] MEDS: MELATONIN 5 MG TABLET PO PRN (20:18)
--- NOTE | 2021-09-22 20:32 | P.PN ---
Subjective This is a pleasant 81 years old male with past medical history of trial Fibrillation on blood thinner, Coronary Artery Disease Heart Failure, Dementia, GI Bleed, Hyperlipidemia, Hypertension, end-stage renal disease on hemodialysis, coronary artery disease status post stent, nicotine dependence, chronic hypoxic respiratory failure and ventilator oxygen via nasal cannula most likely secondary to history of COPD although there is no official diagnosis for COPD His echocardiogram from 06/2020 showed ejection fraction of 30-35% Patient states he came because his tested positive for Covid yesterday his daughter and son-in-law at [facility] for the last few days he himself has been feeling a little short of breath with Yellow Phlegm with 3 Days Duration. No Chest Pain. No Diarrhea. No Vomiting Although He States That He Has Low Appetite over the Last 2 Months but It Was More Worse over the Last 2 Days. He Got Covid Faxing about 2 Months Ago and He Got the Posterior about 2 Weeks Ago. At Home He Is on 2 L Oxygen Via Nasal Cannula I His PCP Dr. Bowen over Last Few years. He does not follow up with food adviser, he doesn't have official diagnosis of COPD however he is every day smoker about 4 cigarettes per day, he was consulted and he does not want to quit and he does not want nicotine patch but he denies alcohol or illicit drugs Usually he ambulates using a cane He is hemodynamically stable and saturating 92% on 3 L oxygen via nasal cannula, he is ventilator oxygen at home Labs showing WBC slightly elevated 10.9, hemoglobin slightly low at 11.3, platelets slightly low 127. INR is 1.0. Potassium is 4.8. Creatinine 9.6, lactic acid 1.1, liver enzymes not elevated, proBNP is [id number] Garsia varus detected Chest x-ray showing mild pulmonary interstitial infiltrates and small pleural effusions which are new compared to old exam, minimal heart failure is probably present EKG showing sinus rhythm at 90 BPM with frequent PVC and QTC 521, no significant ST-T changes. 09/22/2021 Patient is awake and alert, lying in bed comfortably, less tachypnea. Still have some occasional coughing. But no chest pain or abdominal pain. Earlier today he was mildly hypotensive with systolic blood pressure in 90s after he got his blood pressure medication of hydralazine and metoprolol, and then become tachycardic with heart rate 120-130. Because of that we stopped his hydralazine 25 mg 3 times a day and increased the dose of his metoprolol 12.5 mg up to 50 mg twice a day, currently his blood pressure 116/60 and heart rate 71. Also patient received hemodialysis today. No labs from today. Continue with dexamethasone, multiple vitamins Objective - Vital Signs Vital signs: Vital Signs Temp 97.8 F 09/22/21 10:00 Pulse 122 H 09/22/21 10:00 Resp 19 09/22/21 10:00 BP 129/74 09/22/21 10:00 Pulse Ox 96 09/22/21 10:00 Intake & Output 09/21/21 09/22/21 09/22/21 18:59 06:59 18:59 Intake Total 50 300 Output Total 2300 Balance 50 -1999 Intake: IV 50 Hemodialysis 300 Output: Hemodialysis 2300 Other: # Voids 0 0 - Exam -GENERAL: The patient is alert and oriented x3, not in any acute distress. Well developed, lethargic HEENT: Pupils are round and equally reacting to light. EOMI. No scleral icterus. No conjunctival pallor. Normocephalic, atraumatic. No pharyngeal erythema. No thyromegaly. CARDIOVASCULAR: S1 and S2 present. No murmurs, rubs, or gallops. -PULMONARY: Chest is clear to auscultation, no wheezing . Bilateral scattered crackles. Mildly tachypneic ABDOMEN: Soft, nontender, nondistended, normoactive bowel sounds. No palpable organomegaly. MUSCULOSKELETAL: No joint swelling or deformity. EXTREMITIES: No cyanosis, clubbing, or pedal edema. NEUROLOGICAL: Gross neurological examination did not reveal any focal deficits. SKIN: No rashes. no petechiae. - Labs CBC & Chem 7: 09/20/21 18:09 09/21/21 10:49 Labs: Abnormal Lab Results - Last 24 Hours (Table) 09/21/21 Range/Units 18:00 Hep Bs Antibody Reactive A (Nonreactive) Assessment and Plan Assessment: Acute Bilateral Covid pneumonia Acute hypoxic respiratory failure Increased inflammatory markers Hypertension Nicotine dependence End-stage renal disease on hemodialysis chronic hypoxic respiratory failure most likely due to history of COPD Chronic atrial fibrillation, not on a blood thinner for history of GI bleed History of coronary artery disease Chronic systolic heart failure secondary to ischemic cardiomyopathy with ejection fraction of 30-35% Hyperlipidemia Plan: this is a pleasant 81 years old male who presents with Bilateral Covid pneumonia and hypoxia Continue with vitamin C, vitamin D, and zinc. Continue with dexamethasone Pulmonary team consult Continue with metoprolol and monitor blood pressure and heart rate.. Heart rate was in Labs and medication were reviewed.. Continue same treatment. Continue with symptomatic treatment. Resume home medication. Monitor lytes and vitals. DVT and GI prophylaxis. Further recommendations depends on the clinical course of the patient DVT prophylaxis: Subcutaneous heparin GI Prophylaxis: Pepcid PT/OT: Pending Prognosis is guarded
[2021-09-22 20:44] LABS: Glucose,Whole Blood 213 mg/dL (75-99)
[2021-09-23 07:16] LABS: Glucose,Whole Blood 126 mg/dL (75-99)
[2021-09-23] MEDS: INSULIN ASPART (NovoLOG) 100 UNIT/ML VIAL SQ SCH ×4 (07:26→21:51)
[2021-09-23] MEDS: ZINC SULFATE 220 MG CAP PO SCH (08:57)
[2021-09-23] MEDS: dexAMETHasone 2 MG TAB PO SCH (08:57)
[2021-09-23] MEDS: ASCORBIC ACID 500 MG TAB PO SCH ×2 (08:58→21:51)
[2021-09-23] MEDS: CALCIUM ACETATE 667 MG TAB PO SCH ×3 (08:58→16:54)
[2021-09-23] MEDS: PANTOPRAZOLE 40 MG TABLET PO SCH (08:58)
[2021-09-23] MEDS: CHOLECALCIFEROL 125 MCG (5000 IU) TABLET PO SCH (08:58)
[2021-09-23] MEDS: ATORVASTATIN 40 MG TAB PO SCH (08:58)
[2021-09-23] MEDS: HEPARIN SODIUM,PORCINE/PF 5,000 UNIT/0.5 ML SYRINGE SQ SCH ×2 (08:58→21:51)
--- NOTE | 2021-09-23 10:14 | P.PN ---
Subjective This is a pleasant 81 years old male with past medical history of trial Fibrillation on blood thinner, Coronary Artery Disease Heart Failure, Dementia, GI Bleed, Hyperlipidemia, Hypertension, end-stage renal disease on hemodialysis, coronary artery disease status post stent, nicotine dependence, chronic hypoxic respiratory failure and ventilator oxygen via nasal cannula most likely secondary to history of COPD although there is no official diagnosis for COPD His echocardiogram from 06/2020 showed ejection fraction of 30-35% Patient states he came because his tested positive for Covid yesterday his daughter and son-in-law at [facility] for the last few days he himself has been feeling a little short of breath with Yellow Phlegm with 3 Days Duration. No Chest Pain. No Diarrhea. No Vomiting Although He States That He Has Low Appetite over the Last 2 Months but It Was More Worse over the Last 2 Days. He Got Covid Faxing about 2 Months Ago and He Got the Posterior about 2 Weeks Ago. At Home He Is on 2 L Oxygen Via Nasal Cannula I His PCP Dr. Bowen over Last Few years. He does not follow up with research staff member, he doesn't have official diagnosis of COPD however he is every day smoker about 4 cigarettes per day, he was consulted and he does not want to quit and he does not want nicotine patch but he denies alcohol or illicit drugs Usually he ambulates using a cane He is hemodynamically stable and saturating 92% on 3 L oxygen via nasal cannula, he is ventilator oxygen at home Labs showing WBC slightly elevated 10.9, hemoglobin slightly low at 11.3, platelets slightly low 127. INR is 1.0. Potassium is 4.8. Creatinine 9.6, lactic acid 1.1, liver enzymes not elevated, proBNP is [id number] Garsia varus detected Chest x-ray showing mild pulmonary interstitial infiltrates and small pleural effusions which are new compared to old exam, minimal heart failure is probably present EKG showing sinus rhythm at 90 BPM with frequent PVC and QTC 521, no significant ST-T changes. 09/22/2021 Patient is awake and alert, lying in bed comfortably, less tachypnea. Still have some occasional coughing. But no chest pain or abdominal pain. Earlier today he was mildly hypotensive with systolic blood pressure in 90s after he got his blood pressure medication of hydralazine and metoprolol, and then become tachycardic with heart rate 120-130. Because of that we stopped his hydralazine 25 mg 3 times a day and increased the dose of his metoprolol 12.5 mg up to 50 mg twice a day, currently his blood pressure 116/60 and heart rate 71. Also patient received hemodialysis today. No labs from today. Continue with dexamethasone, multiple vitamins 09/23/2020 Patient awake and alert, breathing quietly, still on 3 L oxygen via nasal cannula which is his home dose, he is saturating 98% this morning. Blood pressure is better today 141/56 and heart rate 69. Labs from today are pending. Hydralazine is on hold and patient currently on metoprolol 50 mg twice a day. Also is on dexamethasone , multiple vitamins. Hemodialysis today Objective - Vital Signs Vital signs: Vital Signs Temp 98.3 F 09/23/21 06:00 Pulse 63 09/23/21 06:00 Resp 18 09/23/21 06:00 BP 127/71 09/23/21 06:00 Pulse Ox 98 09/23/21 06:00 Intake & Output 09/22/21 09/23/21 09/23/21 18:59 06:59 18:59 Intake Total 300 Output Total 1999 Balance -1700 Weight 67.4 kg Intake: Hemodialysis 300 Output: Hemodialysis 1999 Other: # Voids 0 - Exam -GENERAL: The patient is alert and oriented x3, not in any acute distress. Well developed, lethargic HEENT: Pupils are round and equally reacting to light. EOMI. No scleral icterus. No conjunctival pallor. Normocephalic, atraumatic. No pharyngeal erythema. No thyromegaly. CARDIOVASCULAR: S1 and S2 present. No murmurs, rubs, or gallops. -PULMONARY: Chest is clear to auscultation, no wheezing . Bilateral scattered crackles. Mildly tachypneic ABDOMEN: Soft, nontender, nondistended, normoactive bowel sounds. No palpable organomegaly. MUSCULOSKELETAL: No joint swelling or deformity. EXTREMITIES: No cyanosis, clubbing, or pedal edema. NEUROLOGICAL: Gross neurological examination did not reveal any focal deficits. SKIN: No rashes. no petechiae. - Labs CBC & Chem 7: 09/20/21 18:09 09/21/21 10:49 Labs: Abnormal Lab Results - Last 24 Hours (Table) 09/21/21 09/22/21 09/23/21 Range/Units 18:00 20:42 07:14 POC Glucose (mg/dL) 213 H 126 H (75-99) mg/dL Hep Bs Antibody Reactive A (Nonreactive) Assessment and Plan Assessment: Acute Bilateral Covid pneumonia Acute hypoxic respiratory failure Increased inflammatory markers Hypertension Nicotine dependence End-stage renal disease on hemodialysis chronic hypoxic respiratory failure most likely due to history of COPD Chronic atrial fibrillation, not on a blood thinner for history of GI bleed History of coronary artery disease Chronic systolic heart failure secondary to ischemic cardiomyopathy with ejection fraction of 30-35% Hyperlipidemia Plan: this is a pleasant 81 years old male who presents with Bilateral Covid pneum onia and hypoxia Continue with vitamin C, vitamin D, and zinc. Continue with dexamethasone Pulmonary team consult Continue with metoprolol and monitor blood pressure and heart rate.. Heart rate was in Labs and medication were reviewed.. Continue same treatment. Continue with symptomatic treatment. Resume home medication. Monitor lytes and vitals. DVT and GI prophylaxis. Further recommendations depends on the clinical course of the patient DVT prophylaxis: Subcutaneous heparin GI Prophylaxis: Pepcid PT/OT: Pending Prognosis is guarded
[2021-09-23 10:58] LABS: African American GFR (CKD) 10 (>60 ml/min/1.73 sqM); Anion Gap 18 mmol/L; Blood Urea Nitrogen 52 mg/dL (9-20); Calcium 8.5 mg/dL (8.4-10.2); Carbon Dioxide 21 mmol/L (22-30); Chloride 99 mmol/L (98-107); Glucose 168 mg/dL (74-99); LDH 473 U/L (313-618); Non-African American GFR(CKD) 8 (>60 ml/min/1.73 sqM); Potassium 4.1 mmol/L (3.5-5.1); Sodium 138 mmol/L (137-145)
[2021-09-23 11:11] LABS: Basophils % (A) 0 %; C Reactive Protein 13.2 mg/dL (<1.0); Eosinophils % (A) 1 %; HCT 36.3 % (39.0-53.0); HGB 11.1 gm/dL (13.0-17.5); Hypochromasia Slight; Lymphocytes % (A) 12 %; MCH 28.2 pg (25.0-35.0); MCHC 30.5 g/dL (31.0-37.0); MCV 92.7 fL (80.0-100.0); Mean Platelet Volume 12.2; Monocytes # (A) 0.5 k/uL (0-1.0); Monocytes % (A) 6 %; Neutrophils # (A) 6.9 k/uL (1.3-7.7); Neutrophils % (A) 80 %; Platelet Count 139 k/uL (150-450); RBC 3.92 m/uL (4.30-5.90); RDW 14.8 % (11.5-15.5); WBC 8.5 k/uL (3.8-10.6)
[2021-09-23 12:00] LABS: Large Platelets Present
[2021-09-23 12:14] LABS: Glucose,Whole Blood 148 mg/dL (75-99)
--- NOTE | 2021-09-23 12:34 | P.PN ---
Subjective Patient is seen in follow-up for end-stage renal disease. He is maintained on hemodialysis on Wednesday schedule. Tolerating dialysis well. Right groin catheter being used. Denies chest pain or shortness of breath. Vital signs are stable. General: On nasal cannula. HEENT: Head exam is unremarkable. LUNGS: Breath sounds decreased. HEART: Rate and Rhythm are regular. ABDOMEN: Soft, no distention. EXTREMITITES: No edema. Objective - Vital Signs Vital signs: Vital Signs Temp 97.5 F L 09/23/21 10:00 Pulse 69 09/23/21 10:00 Resp 18 09/23/21 10:00 BP 141/56 09/23/21 10:00 Pulse Ox 98 09/23/21 10:00 Intake & Output 09/22/21 09/23/21 09/23/21 18:59 06:59 18:59 Intake Total 300 Output Total 1999 Balance -1700 Weight 67.4 kg Intake: Hemodialysis 300 Output: Hemodialysis 2000 Other: # Voids 0 - Labs CBC & Chem 7: 09/23/21 10:11 09/23/21 10:11 Labs: Abnormal Lab Results - Last 24 Hours (Table) 09/22/21 09/23/21 09/23/21 Range/Units 20:42 07:14 10:11 RBC (4.30-5.90) m/uL Hgb (13.0-17.5) gm/dL Hct (39.0-53.0) % MCHC (31.0-37.0) g/dL Plt Count (150-450) k/uL Carbon Dioxide 21 L (22-30) mmol/L BUN 52 H (9-20) mg/dL Creatinine 5.85 H (0.66-1.25) mg/dL Glucose 168 H (74-99) mg/dL POC Glucose (mg/dL) 213 H 126 H (75-99) mg/dL C-Reactive Protein 13.2 H (<1.0) mg/dL 09/23/21 09/23/21 Range/Units 10:11 12:12 RBC 3.92 L (4.30-5.90) m/uL Hgb 11.1 L (13.0-17.5) gm/dL Hct 36.3 L (39.0-53.0) % MCHC 30.5 L (31.0-37.0) g/dL Plt Count 139 L (150-450) k/uL Carbon Dioxide (22-30) mmol/L BUN (9-20) mg/dL Creatinine (0.66-1.25) mg/dL Glucose (74-99) mg/dL POC Glucose (mg/dL) 148 H (75-99) mg/dL C-Reactive Protein (<1.0) mg/dL Assessment and Plan Plan: Assessment: 1. End-stage renal disease maintained on hemodialysis on Wednesday schedule via right groin permacath. 2. Acute hypoxic respiratory failure. 3. COVID-19 pneumonia. 4. Hyperkalemia secondary to chronic kidney disease and missed dialysis. Sample on admission was also hemolyzed. 5. Chronic kidney disease mineral bone disease. Phosphorus 3.9. Plan: Currently seen while undergoing hemodialysis. Next treatment on . Plan to transition to PD and near future.
--- NOTE | 2021-09-23 14:45 | P.PN ---
Subjective Progress Note Date: 09/23/21 Principal diagnosis: Shortness of breath, COVID-19 On 09/23/2021 patient seen in follow-up on medical surgical floor. He is awake and alert, in no acute distress, is currently on 3 L of oxygen, he is undergoing hemodialysis treatment, does not appear to be in any acute distress. His O2 saturations at 98% on 3 L, vital signs have been stable, has been afebrile, he remains on Decadron, multivitamins, and subcu heparin 5000 units every 12 hours. Has had no acute events overnight. No recent chest x-ray today. Today's labs have been reviewed showing white blood cell count is 8.5, hemoglobin is 11.1, sodium is 138, potassium is 4.1, chloride is 99, CO2 is 21, BUN is 52, creatinine is 5.85. Objective - Vital Signs Vital signs: Vital Signs Temp 97.5 F L 09/23/21 10:00 Pulse 69 09/23/21 10:00 Resp 18 09/23/21 10:00 BP 141/56 09/23/21 10:00 Pulse Ox 98 09/23/21 10:00 Intake & Output 09/22/21 09/23/21 09/23/21 18:59 06:59 18:59 Intake Total 300 Output Total 1999 Balance -1700 Weight 67.4 kg Intake: Hemodialysis 300 Output: Hemodialysis 2000 Other: # Voids 0 - Exam GENERAL EXAM: Alert, very pleasant, 81-year-old white male, 3 L oxygen, breathing currently, undergoing hemodialysis treatment, satting 98% on 3 L comfortable in no apparent distress. HEAD: Normocephalic/atraumatic. EYES: Normal reaction of pupils, equal size. Conjunctiva pink, sclera white. NOSE: Clear with pink turbinates. THROAT: No erythema or exudates. NECK: No masses, no JVD, no thyroid enlargement, no adenopathy. CHEST: No chest wall deformity. Symmetrical expansion. LUNGS: Equal air entry with no crackles, wheeze, rhonchi or dullness. CVS: Regular rate and rhythm, normal S1 and S2, no gallops, no murmurs, no rubs ABDOMEN: Soft, nontender. No hepatosplenomegaly, normal bowel sounds, no guarding or rigidity. EXTREMITIES: No clubbing, no edema, no cyanosis, 2+ pulses and upper and lower extremities. MUSCULOSKELETAL: Muscle strength and tone normal. SPINE: No scoliosis or deformity SKIN: No rashes CENTRAL NERVOUS SYSTEM: Alert and oriented -3. No focal deficits, tone is normal in all 4 extremities. PSYCHIATRIC: Alert and oriented -3. Appropriate affect. Intact judgment and insight. - Labs CBC & Chem 7: 09/23/21 10:11 09/23/21 10:11 Labs: Abnormal Lab Results - Last 24 Hours (Table) 09/22/21 09/23/21 09/23/21 Range/Units 20:42 07:14 10:11 RBC (4.30-5.90) m/uL Hgb (13.0-17.5) gm/dL Hct (39.0-53.0) % MCHC (31.0-37.0) g/dL Plt Count (150-450) k/uL Carbon Dioxide 21 L (22-30) mmol/L BUN 52 H (9-20) mg/dL Creatinine 5.85 H (0.66-1.25) mg/dL Glucose 168 H (74-99) mg/dL POC Glucose (mg/dL) 213 H 126 H (75-99) mg/dL C-Reactive Protein 13.2 H (<1.0) mg/dL 09/23/21 09/23/21 Range/Units 10:11 12:12 RBC 3.92 L (4.30-5.90) m/uL Hgb 11.1 L (13.0-17.5) gm/dL Hct 36.3 L (39.0-53.0) % MCHC 30.5 L (31.0-37.0) g/dL Plt Count 139 L (150-450) k/uL Carbon Dioxide (22-30) mmol/L BUN (9-20) mg/dL Creatinine (0.66-1.25) mg/dL Glucose (74-99) mg/dL POC Glucose (mg/dL) 148 H (75-99) mg/dL C-Reactive Protein (<1.0) mg/dL Assessment and Plan Plan: Assessment #1. Acute shortness of breath related to fluid overload secondary to end-stage renal disease and mild COVID-19 associated pneumonia. Patient is clinically improving, he is on hemodialysis. Currently on 3 L of oxygen, his oxygen requirements have been stable, he is on Decadron for his COVID-19 related pneumonia #2. Acute chronic and related infection possibly component of pneumonia #3. History of ESRD on Wednesday hemodialysis #4. Coronary artery disease #5. Cardiomyopathy with systolic heart failure with ejection fraction 30-35% #6. History of hypertension #7. Hyperlipidemia #8. History of prior myocardial infarction and CAD with stent placement #9. History of GI bleeding #10. History of atrial fibrillation #11. History of diverticular disease #12. History of iron deficiency anemia #13. History of ongoing tobacco use #14. COPD Plan: Continue weaning FiO2 which is currently at 3 L Patient's O2 saturations are above 95%, breathing is stable, no acute events overnight Follow-up chest x-ray in the morning Clinically has remained stable Continue Decadron Continue COVID-19 multivitamins Continue subcu heparin We'll continue to follow his clinical course I performed a history & physical examination of the patient and discussed their management with my nurse practitioner, Josefa Cardenas. I reviewed the nurse practitioner's note and agree with the documented findings and plan of care. Lung sounds are positive for dim breath sounds throughout the lung fish. The findings and the impression was discussed with the patient. I attest to the documentation by the nurse practitioner. Time with Patient: Less than 30
[2021-09-23] MEDS: METOPROLOL TARTRATE 50 MG TAB PO SCH ×2 (15:32→21:51)
[2021-09-23] MEDS: ISOSORBIDE MONONITRATE ER 60 MG TAB.ER.24H PO SCH (15:32)
[2021-09-23 16:53] LABS: Glucose,Whole Blood 222 mg/dL (75-99)
[2021-09-23 21:09] LABS: Glucose,Whole Blood 129 mg/dL (75-99)
[2021-09-23] MEDS: MELATONIN 5 MG TABLET PO PRN (21:51)
[2021-09-24 07:34] LABS: Glucose,Whole Blood 110 mg/dL (75-99)
[2021-09-24] MEDS: INSULIN ASPART (NovoLOG) 100 UNIT/ML VIAL SQ SCH ×2 (07:50→11:56)
[2021-09-24] MEDS: METOPROLOL TARTRATE 50 MG TAB PO SCH (07:54)
[2021-09-24] MEDS: PANTOPRAZOLE 40 MG TABLET PO SCH (07:54)
[2021-09-24] MEDS: ATORVASTATIN 40 MG TAB PO SCH (07:54)
[2021-09-24] MEDS: CALCIUM ACETATE 667 MG TAB PO SCH ×2 (07:54→12:47)
[2021-09-24] MEDS: ASCORBIC ACID 500 MG TAB PO SCH (07:54)
[2021-09-24] MEDS: ZINC SULFATE 220 MG CAP PO SCH (07:54)
[2021-09-24] MEDS: dexAMETHasone 2 MG TAB PO SCH (07:54)
[2021-09-24] MEDS: CHOLECALCIFEROL 125 MCG (5000 IU) TABLET PO SCH (07:54)
[2021-09-24] MEDS: ISOSORBIDE MONONITRATE ER 60 MG TAB.ER.24H PO SCH (07:55)
[2021-09-24] MEDS: HEPARIN SODIUM,PORCINE/PF 5,000 UNIT/0.5 ML SYRINGE SQ SCH (07:55)
--- NOTE | 2021-09-24 08:07 | XR ---
EXAMINATION TYPE: XR chest 1V portable DATE OF EXAM: 09/24/2021 COMPARISON: 09/20/2021 HISTORY: Cough TECHNIQUE: Single frontal view of the chest is obtained. FINDINGS: Persistent interstitial changes are seen but appear to be improved. Subsegmental atelectas is or infiltrate right lung base improved. Underlying COPD suspected. Biapical pleural thickening. Gtz rgical clips in the left axilla. Heart size normal. Atherosclerotic change aorta. IMPRESSION: Improving interstitial infiltrates.
[2021-09-24 11:55] LABS: Glucose,Whole Blood 128 mg/dL (75-99)
[2021-09-24 14:37] VITALS: BP 94/50; PULSE 55; RESP 18; TEMP 97.5
[2021-09-24] MEDS ORDERED: METOPROLOL TARTRATE 25 MG TAB PO SCH (16:00)
--- NOTE | 2021-09-24 17:03 | P.PN ---
Subjective Progress Note Date: 09/24/21 Principal diagnosis: Shortness of breath, COVID-19 On 09/23/2021 patient seen in follow-up on medical surgical floor. He is awake and alert, in no acute distress, is currently on 3 L of oxygen, he is undergoing hemodialysis treatment, does not appear to be in any acute distress. His O2 saturations at 98% on 3 L, vital signs have been stable, has been afebrile, he remains on Decadron, multivitamins, and subcu heparin 5000 units every 12 hours. Has had no acute events overnight. No recent chest x-ray today. Today's labs have been reviewed showing white blood cell count is 8.5, hemoglobin is 11.1, sodium is 138, potassium is 4.1, chloride is 99, CO2 is 21, BUN is 52, creatinine is 5.85. On 09/24/2021 patient surgical floor. Patient is calm and comfortable, is curre ntly on 3 L of oxygen and this is what he normally wears at home. No worsening dyspnea, no cough, follow-up chest x-ray today showed improving interstitial infiltrates. No fever or chills, vital signs have been stable. Was dialyzed yesterday 2 L of fluid was taken off. He is anticipated to be discharged home today. Objective - Vital Signs Vital signs: Vital Signs Temp 97.5 F L 09/24/21 14:00 Pulse 55 L 09/24/21 14:00 Resp 18 09/24/21 14:00 BP 94/50 09/24/21 14:00 Pulse Ox 97 09/24/21 14:00 Intake & Output 09/23/21 09/24/21 09/24/21 18:59 06:59 18:59 Intake Total 300 Output Total 1999 Balance -1700 Weight 66.6 kg Intake: Hemodialysis 300 Output: Hemodialysis 1999 Other: # Voids 1 2 # Bowel Movements 1 - Exam GENERAL EXAM: Alert, very pleasant, 81-year-old white male, 3 L oxygen, breathing currently, undergoing hemodialysis treatment, satting 98% on 3 L comfortable in no apparent distress. HEAD: Normocephalic/atraumatic. EYES: Normal reaction of pupils, equal size. Conjunctiva pink, sclera white. NOSE: Clear with pink turbinates. THROAT: No erythema or exudates. NECK: No masses, no JVD, no thyroid enlargement, no adenopathy. CHEST: No chest wall deformity. Symmetrical expansion. LUNGS: Equal air entry with no crackles, wheeze, rhonchi or dullness. CVS: Regular rate and rhythm, normal S1 and S2, no gallops, no murmurs, no rubs ABDOMEN: Soft, nontender. No hepatosplenomegaly, normal bowel sounds, no guarding or rigidity. EXTREMITIES: No clubbing, no edema, no cyanosis, 2+ pulses and upper and lower extremities. MUSCULOSKELETAL: Muscle strength and tone normal. SPINE: No scoliosis or deformity SKIN: No rashes CENTRAL NERVOUS SYSTEM: Alert and oriented -3. No focal deficits, tone is normal in all 4 extremities. PSYCHIATRIC: Alert and oriented -3. Appropriate affect. Intact judgment and insight. - Labs CBC & Chem 7: 09/23/21 10:11 09/23/21 10:11 Labs: Abnormal Lab Results - Last 24 Hours (Table) 09/23/21 09/23/21 09/24/21 Range/Units 10:11 21:07 07:33 POC Glucose (mg/dL) 129 H 110 H (75-99) mg/dL Procalcitonin 0.45 H (0.02-0.09) ng/mL 09/24/21 Range/Units 11:54 POC Glucose (mg/dL) 128 H (75-99) mg/dL Procalcitonin (0.02-0.09) ng/mL Assessment and Plan Plan: Assessment #1. Acute shortness of breath related to fluid overload secondary to end-stage renal disease and mild COVID-19 associated pneumonia. Patient is clinically improving, he is on hemodialysis. Currently on 3 L of oxygen, his oxygen requirements have been stable, he is on Decadron for his COVID-19 related pneumonia #2. Acute chronic and related infection possibly component of pneumonia #3. History of ESRD on Wednesday hemodialysis #4. Coronary artery disease #5. Cardiomyopathy with systolic heart failure with ejection fraction 30-35% #6. History of hypertension #7. Hyperlipidemia #8. History of prior myocardial infarction and CAD with stent placement #9. History of GI bleeding #10. History of atrial fibrillation #11. History of diverticular disease #12. History of iron deficiency anemia #13. History of ongoing tobacco use #14. COPD Plan: Patient is doing well, No worsening dyspnea He is on 3 L of oxygen, and normal patient was 3 L of oxygen at home His chest x-ray showing improving interstitial infiltrates He continues on Decadron, continues heparin, COVID-19 multivitamins he stable for discharge home today from pulmonary perspective His had no acute events overnight Outpatient follow-up with Dr. Hood in the office in 2 weeks I performed a history & physical examination of the patient and discussed their management with my nurse practitioner, Josefa Cardenas. I reviewed the nurse practitioner's note and agree with the documented findings and plan of care. Lung sounds are positive for dim breath sounds throughout the lung fish. The findings and the impression was discussed with the patient. I attest to the documentation by the nurse practitioner. Time with Patient: Less than 30
--- NOTE | 2021-09-24 19:51 | PN ---
PROGRESS NOTE Patient is seen for followup for end-stage renal disease. He is maintained on a Wednesday, , Wednesday schedule for dialysis. The patient tested positive for Covid-19 PCR. His chest x-ray shows interstitial infiltrates which appear to be in improving. PHYSICAL EXAMINATION: On examination today, blood pressure was 108/55, heart rate 57 per minute, he is afebrile. Examination of the of the legs shows no significant edema. [employer] exam grossly intact. Heart and lungs are not examined. LABS: From September 23 show potassium 4.1, creatinine 5.8, sodium 138, hemoglobin 11.1. ASSESSMENT: 1. End-stage renal disease, on hemodialysis on a Wednesday, , Wednesday schedule. We will arrange for hemodialysis in a.m. 2. Covid-19 pneumonia currently stable maintained on 3 L nasal cannula. 3. Malfunctioning IJ catheter currently removed. The patient has a right femoral catheter with plans for peritoneal dialysis down the road. 4. CKD mineral bone disorder. PLAN: Hemodialysis in a.m. Increase oral intake as tolerated. MMODL / IJN: [id number] /
--- NOTE | 2021-09-25 00:15 | P.DS ---
Providers Date of admission: 09/20/21 19:22 Attending physician: Carole Barnes MD Consults: 09/20/21 19:22 Consult Physician Urgent Consulting Provider: Santhosh Hilton Consult Reason/Comments: CRF, DIALYSIS Do you want consulting provider notified?: Already Contacted 09/20/21 19:23 Consult Physician Routine Consulting Provider: Ton Muir Consult Reason/Comments: covid Do you want consulting provider notified?: Yes 09/21/21 10:43 Consult Physician Urgent Consulting Provider: Leonardo Shafer Consult Reason/Comments: new dialysis catheter Do you want consulting provider notified?: Yes Primary care physician: Edward Bowen Hospital Course: Diagnoses: Acute Bilateral Covid pneumonia Acute hypoxic respiratory failure Increased inflammatory markers Hypertension Nicotine dependence End-stage renal disease on hemodialysis chronic hypoxic respiratory failure most likely due to history of COPD Chronic atrial fibrillation, not on a blood thinner for history of GI bleed History of coronary artery disease Chronic systolic heart failure secondary to ischemic cardiomyopathy with ejection fraction of 30-35% Hyperlipidemia Hospital course: This is a pleasant 81 years old male with past medical history of trial Fibrillation on blood thinner, Coronary Artery Disease Heart Failure, Dementia, GI Bleed, Hyperlipidemia, Hypertension, end-stage renal disease on hemodialysis, coronary artery disease status post stent, nicotine dependence, chronic hypoxic respiratory failure and ventilator oxygen via nasal cannula most likely secondary to history of COPD although there is no official diagnosis for COPD His echocardiogram from 06/2020 showed ejection fraction of 30-35% Patient states he came because his tested positive for Covid yesterday his daughter and son-in-law had covid for the last few days; he himself has been feeling a little short of breath with Yellow Phlegm with 3 Days Duration. Chest x-ray showing mild pulmonary interstitial infiltrates and small pleural effusions which are new compared to old exam, minimal heart failure is probably present Meticulous with a diagnosis of bilateral Covid pneumonia, he was evaluated by pulmonary service and followed closely and was treated with dexamethasone, vitamin C, vitamin D and zinc. Also he continued to undergo hemodialysis per nephrology team recommendation. Patient showed interval improvement on the day of discharge his dyspnea improved and remained stable, repeat chest x-ray showing improvement. He denies chest pain, no change in urine or bowel habits. No fever. Patient was cleared for discharge by probation manager Problems and management plan were discussed with the patient and he verbalized understanding and acceptance Patient was found stable and can be discharged home however he needs follow-up as an outpatient. Patient was instructed to follow up with PCP Dr. Bowen within one week and patient agrees Patient was instructed to follow up with probation manager Dr. Muir in 2 weeks and he agrees to call and make his own appointment. 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 Patient and daughter rejected home care as well Physical exam Gen: patient is a AAOx3, no distress CVS: S1-S2, RRR, no murmur Lungs: B/L CTA, no wheezing Abdomen: soft, no distention, no tenderness, positive bowel sounds Extremity: no leg edema or induration Time spent more than 35 minutes Patient Condition at Discharge: Fair Plan - Discharge Summary Discharge Rx Participant: No New Discharge Prescriptions: New Zinc Sulfate [Orazinc] 220 mg PO DAILY #15 cap Ascorbic Acid [Vitamin C] 500 mg PO BID #60 tab Dexamethasone [Decadron] 6 mg PO DAILY 7 Days #7 tablet Metoprolol Tartrate [Lopressor] 25 mg PO TID #90 tab Cholecalciferol [Vitamin D3 (125 Mcg = 5000 Iu)] 125 mcg PO DAILY #30 tablet Continue Atorvastatin Calcium [Lipitor] 40 mg PO DAILY Pantoprazole [Protonix] 40 mg PO DAILY Lidocaine-Prilocaine Cream [Emla Cream 2.5%/2.5%] 1 applic TOPICAL DAILY PRN PRN Reason: avf access Calcium Acetate [PhosLo] 667 mg PO AC-TID Azithromycin [Zithromax Z-pack (6 tabs)] See Taper PO DAILY guaiFENesin [Mucinex] 600 mg PO BID PRN PRN Reason: Congestion Isosorbide Mononitrate ER [Imdur] 60 mg PO DAILY #30 tablet Oxymetazoline 0.05% Nasl [place] [Afrin 0.05% Nasal [place]] 2 spr EA NOSTRIL TID PRN PRN Reason: Congestion Discontinued Vit C/E/Zn/Coppr/Lutein/Zeaxan [Preservision Areds 2 Softgel] 1 cap PO BID Metoprolol Tartrate [Lopressor] 12.5 mg PO BID Chlorpheniramine/Dextromethorp [Coricidin Hbp Cough & Cold Tab] 2 tab PO Q6H PRN PRN Reason: Cold Symptoms methylPREDNISolone [Medrol Dose Pack] See Taper PO DIRECTED Zolpidem [Ambien] 5 mg PO HS Discharge Medication List Atorvastatin Calcium [Lipitor] 40 mg PO DAILY 07/02/20 [History] Pantoprazole [Protonix] 40 mg PO DAILY 07/20/20 [History] Lidocaine-Prilocaine Cream [Emla Cream 2.5%/2.5%] 1 applic TOPICAL DAILY PRN 05/14/21 [History] Calcium Acetate [PhosLo] 667 mg PO AC-TID 05/22/21 [History] Isosorbide Mononitrate ER [Imdur] 60 mg PO DAILY #30 tablet 05/26/21 [Rx] Azithromycin [Zithromax Z-pack (6 tabs)] See Taper PO DAILY 09/20/21 [History] Oxymetazoline 0.05% Nasl [place] [Afrin 0.05% Nasal [place]] 2 spr EA NOSTRIL TID PRN 09/20/21 [History] guaiFENesin [Mucinex] 600 mg PO BID PRN 09/20/21 [History] Ascorbic Acid [Vitamin C] 500 mg PO BID #60 tab 09/24/21 [Rx] Cholecalciferol [Vitamin D3 (125 Mcg = 5000 Iu)] 125 mcg PO DAILY #30 tablet 09/24/21 [Rx] Dexamethasone [Decadron] 6 mg PO DAILY 7 Days #7 tablet 09/24/21 [Rx] Metoprolol Tartrate [Lopressor] 25 mg PO TID #90 tab 09/24/21 [Rx] Zinc Sulfate [Orazinc] 220 mg PO DAILY #15 cap 09/24/21 [Rx] Follow up Appointment(s)/Referral(s): Edward Bowen MD [Primary Care Provider] - 1-2 days Ton Muir DO [Doctor of Osteopathic Medicine] - 2 Weeks (probation manager ) Santhosh Hilton DO [STAFF PHYSICIAN] - 1 Week Leonardo Shafer MD [STAFF PHYSICIAN] - 1-2 Days (Stitches from neck will be removed at appointment. ) Patient Instructions/Handouts: Coronavirus Disease 2019 (COVID-19) Activity/Diet/Wound Care/Special Instructions: [employer] [facility]: [id number] [address]. . First chair time: 09/25/21 at 8:50a.m. Please arrive 15 minutes early for first appointment. Discharge Disposition: HOME WITH HOME HEALTH SERVICES
== END 2021-09-24 16:57 | disposition home health service (06) | DRG 177 ==
LOC: EC 17:01 → 4SSUR 19:22
PROVIDERS: ADMIT Internal Medicine; ATTEND Internal Medicine
PROC: 06HY33Z Insertion of Infusion Device into Lower Vein, Percutaneous Approach (ICD-10-PCS; principal; 2021-09-21 14:00)
PROC: 05PYX3Z Removal of Infusion Device from Upper Vein, External Approach (ICD-10-PCS; principal; 2021-09-21 14:00)
PROC: 02HV33Z Insertion of Infusion Device into Superior Vena Cava, Percutaneous Approach (ICD-10-PCS; principal; 2021-09-21 14:00)
PROC: 5A1D70Z Performance of Urinary Filtration, Intermittent, Less than 6 Hours Per Day (ICD-10-PCS; 2021-09-21 14:00)
DX: U07.1 COVID-19 (principal); J96.21 Acute and chronic respiratory failure with hypoxia; J12.82 Pneumonia due to coronavirus disease 2019; N18.6 End stage renal disease; I13.2 Hypertensive heart and chronic kidney disease with heart failure and with stage 5 chronic kidney disease, or end stage renal disease; I48.20 Chronic atrial fibrillation, unspecified; I50.22 Chronic systolic (congestive) heart failure; J44.0 Chronic obstructive pulmonary disease with (acute) lower respiratory infection; N17.9 Acute kidney failure, unspecified; T82.858A Stenosis of other vascular prosthetic devices, implants and grafts, initial encounter; E78.5 Hyperlipidemia, unspecified; E87.5 Hyperkalemia; F03.90 Unspecified dementia, unspecified severity, without behavioral disturbance, psychotic disturbance, mood disturbance, and anxiety; F17.210 Nicotine dependence, cigarettes, uncomplicated; H54.61 Unqualified visual loss, right eye, normal vision left eye; I25.10 Atherosclerotic heart disease of native coronary artery without angina pectoris; I73.9 Peripheral vascular disease, unspecified; I25.2 Old myocardial infarction; I25.5 Ischemic cardiomyopathy; I49.3 Ventricular premature depolarization; E83.9 Disorder of mineral metabolism, unspecified; Z99.2 Dependence on renal dialysis; Z20.822 Contact with and (suspected) exposure to COVID-19; Z79.82 Long term (current) use of aspirin; Z79.899 Other long term (current) drug therapy; Z82.3 Family history of stroke; Z82.49 Family history of ischemic heart disease and other diseases of the circulatory system; Z82.69 Family history of other diseases of the musculoskeletal system and connective tissue; Z87.19 Personal history of other diseases of the digestive system; Z86.010 Personal history of colon polyps; Z98.890 Other specified postprocedural states; Z95.5 Presence of coronary angioplasty implant and graft; Z96.1 Presence of intraocular lens; Z98.41 Cataract extraction status, right eye; Z98.42 Cataract extraction status, left eye
CPT/HCPCS: 36415; 36558; 71045; 71046; 76937; 80048; 80053; 83605; 83615; 83880; 84100; 84132; 84145; 85025; 85610; 85730; 86140; 86706; 87340; 87635; 90935; 93005; 99285

== ENCOUNTER → 2021-10-20 | Day surgery (SDC) | payer MEDICARE ==
[2021-10-16 11:05] VITALS: BMI 23.0
[~2021-10-20] MED LIST: ACETAMINOPHEN TAB 500 MG TAB PO PRN; BUPIVACAIN-EPI 0.25%-1:200,000 30 ML VIAL SQ ONE; HEPARIN SODIUM,PORCINE/PF 5,000 UNIT/0.5 ML SYRINGE SQ PRN; HYDROcodone/APAP 5-325MG 1 EACH TAB PO PRN; KETAMINE 10 MG/ML 20 ML VIAL ONE; LACTATED RINGERS 1,000 ML IV SCH; LIDOCAINE 1% (10MG/ML) FOR IV START INTRADERMA PRN; METOPROLOL TARTRATE 5 MG/5 ML VIAL IVP ONE; MIDAZOLAM 2 MG/2 ML VIAL IVP ONE; MIDAZOLAM 2 MG/2 ML VIAL ONE; MINERAL OIL 1 APPLIC/ML OIL TOPICAL ONE; MORPHINE SULFATE 2 MG/ML SYRINGE IV PRN; NALOXONE 0.4 MG/ML 1 ML VIAL IV PRN; ONDANSETRON 4 MG/2 ML VIAL IVP ONE; ONDANSETRON 4 MG/2 ML VIAL IVP PRN; PROPOFOL 10 MG/ML 20 ML VIAL IV ONE; SODIUM CHLORIDE 0.9% 1,000 ML IV ONE; hydrALAZINE HCL 20 MG/ML 1 ML VIAL IVP ONE
[2021-10-20 15:14] LABS: Anisocytosis Slight; Basophils % (A) 0 %; Eosinophils # (A) 0.1 k/uL (0-0.7); Eosinophils % (A) 3 %; Hypochromasia Marked; Lymphocytes # (A) 0.3 k/uL (1.0-4.8); Lymphocytes % (A) 14 %; MCH 29.6 pg (25.0-35.0); MCHC 29.9 g/dL (31.0-37.0); Macrocytosis Slight; Mean Platelet Volume 12.2; Monocytes # (A) 0.2 k/uL (0-1.0); Monocytes % (A) 10 %; Neutrophils # (A) 1.6 k/uL (1.3-7.7); Neutrophils % (A) 69 %; Platelet Count 46 k/uL (150-450); RBC 1.14 m/uL (4.30-5.90); RDW 17.5 % (11.5-15.5); WBC 2.4 k/uL (3.8-10.6)
[2021-10-20 15:23] LABS: HCT 11.3 % (39.0-53.0); MCV 99.1 fL (80.0-100.0)
[2021-10-20 15:49] LABS: Anisocytosis Slight; Hypochromasia Slight; MCH 28.6 pg (25.0-35.0); MCHC 30.1 g/dL (31.0-37.0); Mean Platelet Volume 10.3; RBC 2.63 m/uL (4.30-5.90); RDW 17.2 % (11.5-15.5); WBC 5.7 k/uL (3.8-10.6)
[2021-10-20 15:51] LABS: HCT 24.9 % (39.0-53.0); HGB 7.5 gm/dL (13.0-17.5); MCV 94.8 fL (80.0-100.0); Platelet Count 138 k/uL (150-450)
[2021-10-20 16:38] LABS: Albumin 3.4 g/dL (3.5-5.0); Calcium 8.2 mg/dL (8.4-10.2); Potassium 5.1 mmol/L (3.5-5.1); Total Bilirubin 0.6 mg/dL (0.2-1.3); Total Protein 5.8 g/dL (6.3-8.2)
--- NOTE | 2021-10-20 17:38 | P.OP ---
Date of Procedure: 10/20/21 Procedure(s) Performed: PREOPERATIVE DIAGNOSIS: Renal failure POSTOPERATIVE DIAGNOSIS: Same PROCEDURE: Peritoneal dialysis catheter insertion SURGEON: Eileen EBL: Minimal ANESTHESIA: Sedation plus local COMPLICATIONS: None OPERATIVE PROCEDURE: The patient was placed in the operative table in the supine position. The abdomen was prepped and draped in usual sterile fashion. A small vertical incision was made in the right periumbilical location. Dissection down through the subcutaneous tissues took place using electrocautery. The anterior rectus was divided vertically using the scalpel. The rectus was bluntly. The posterior rectus was visualized. An 0 Vicryl pursestring was placed. A small opening in the posterior rectus fascia and peritoneum took place using a Metzenbaum scissors. There were no adhesions to the suture that was placed. The pigtail catheter was advanced into the pelvis over a stylette. No resistance was met. The inner cuff was secured to the fascia using the 0 Vicryl pursestring that was placed. The catheter was tunneled to an exit site in the right lateral lower quadrant. The catheter was connected to the 1 L bag of saline and approximated 800 mL of saline was easily introduced into the peritoneal cavity. The fluid was then allowed to evacuate. The majority of the fluid was returned. The anterior rectus fascia was then reapproximated using a running 0 Vicryl stitch. The subcutaneous tissues reprepped using 3-0 Vicryl sutures and the skin using 4-0 Monocryl sutures. The outpatient dialysis adapter was applied to the end of the catheter. Sterile dressings were then applied after skin glue was placed over the incision. DISPOSITION: Stable to recovery room
[2021-10-20 17:48] VITALS: TEMP 97.9
[2021-10-20 19:55] VITALS: RESP 20
[2021-10-20 19:59] VITALS: BP 164/60; PULSE 58
[2021-10-22 09:43] LABS: HGB 3.4 gm/dL (13.0-17.5)
== END ==
LOC: OR 14:01
PROVIDERS: ATTEND Surgery
DX: I13.2 Hypertensive heart and chronic kidney disease with heart failure and with stage 5 chronic kidney disease, or end stage renal disease (principal); N18.5 Chronic kidney disease, stage 5; I50.9 Heart failure, unspecified; Z99.2 Dependence on renal dialysis; Z79.899 Other long term (current) drug therapy; I25.10 Atherosclerotic heart disease of native coronary artery without angina pectoris; I48.91 Unspecified atrial fibrillation; I73.9 Peripheral vascular disease, unspecified; J44.9 Chronic obstructive pulmonary disease, unspecified; Z99.81 Dependence on supplemental oxygen; R56.9 Unspecified convulsions; F03.90 Unspecified dementia, unspecified severity, without behavioral disturbance, psychotic disturbance, mood disturbance, and anxiety; F41.9 Anxiety disorder, unspecified; Z98.890 Other specified postprocedural states
CPT/HCPCS: 36561; 80053; 85025; 85027; C1752; J2250; J0360; J0690; J2405; J2704

== ENCOUNTER 2022-04-06 02:09 | Emergency (ER) | payer MEDICARE ==
--- NOTE | 2022-04-06 02:32 | ED ---
Burn/Smoke HPI - General Stated complaint: Chest Pain Time Seen by Provider: 04/06/22 02:17 Source: RN notes reviewed, old records reviewed Limitations: no limitations - History of Present Illness Initial comments: This is an 81-year-old male DF for evaluation patient presents today for evaluation of chest pain chest pain that happened prior to arrival. Patient states chest pain is resolved here in the emergency department, states maybe some anxiety was involved. No travel history no sick contacts no other complaints MD Complaint: other (Chest pain) -: minutes(s) Smoke Inhalation: none Place: home Severity: mild Severity scale (1-10): 2 Treatment Prior to Arrival: other (0) - Related Data Home Medications Medication Instructions Recorded Confirmed Atorvastatin Calcium [Lipitor] 40 mg PO DAILY 07/02/20 10/16/21 Pantoprazole [Protonix] 40 mg PO DAILY 07/20/20 10/16/21 Lidocaine-Prilocaine Cream [Emla 1 applic TOPICAL DAILY PRN 05/14/21 10/16/21 Cream 2.5%/2.5%] Calcium Acetate [PhosLo] 667 mg PO AC-TID 05/22/21 10/16/21 Metoprolol Tartrate [Lopressor] 25 mg PO QAM 10/16/21 10/16/21 Temazepam [Restoril] 15 mg PO HS 10/16/21 10/16/21 Previous Rx's Medication Instructions Recorded Isosorbide Mononitrate ER [Imdur] 60 mg PO DAILY #30 tablet 05/26/21 Ascorbic Acid [Vitamin C] 500 mg PO BID #60 tab 09/24/21 Cholecalciferol [Vitamin D3 (125 125 mcg PO DAILY #30 tablet 09/24/21 Mcg = 5000 Iu)] Zinc Sulfate [Orazinc] 220 mg PO DAILY #15 cap 09/24/21 dexAMETHasone [Decadron] 6 mg PO DAILY 7 Days #7 tablet 09/24/21 oxyCODONE HCL [OxyIR] 5 mg PO Q6H PRN 3 Days #10 tab 10/20/21 Allergies Allergy/AdvReac Type Severity Reaction Status Date / Time No Known Allergies Allergy Verified 10/16/21 10:46 Review of Systems ROS Statement: Those systems with pertinent positive or pertinent negative responses have been documented in the HPI. ROS Other: All systems not noted in ROS Statement are negative. Past Medical History Past Medical History: Atrial Fibrillation, Coronary Artery Disease (CAD), Chest Pain / Angina, Heart Failure, COPD, Dialysis, Eye Disorder, GERD/Reflux, Hypertension, Myocardial Infarction ([place]), Pneumonia, Renal Disease, Vascular Disorder Additional Past Medical History / Comment(s): hemodialysis , , . Blind in right eye. Iron deficiency anemia, PVD , neck fx as a young person with seizures following last one years ago. + COVID 09/20/2021, uses oxygen 3L [place] PRN Last Myocardial Infarction Date:: 2013 History of Any Multi-Drug Resistant Organisms: None Reported Past Surgical History: Heart Catheterization With Stent Additional Past Surgical History / Comment(s): Bilateral cataract removal with lens implants, shunt rt thigh, non functioning shunt left arm, ports/later removed Past Anesthesia/Blood Transfusion Reactions: No Reported Reaction Date of Last Stent Placement:: 2007 Past Psychological History: Anxiety Additional Psychological History / Comment(s): Pt resides with his daughter, Sarai. Smoking Status: Light tobacco smoker Past Alcohol Use History: None Reported Additional Past Alcohol Use History / Comment(s): Pt started smoking in 1954. Patient smokes 4 cigarettes a day. Past Drug Use History: None Reported - Past Family History Son(s) Family Medical History: Cancer Father Family Medical History: Myocardial Infarction ([place]) Additional Family Medical History / Comment(s): Father at age 59 of a [place] Mother Family Medical History: Cancer, CVA/TIA Additional Family Medical History / Comment(s): Mother of a brain hemorr age. General Exam General appearance: alert, in no apparent distress Head exam: Present: atraumatic, normocephalic, normal inspection Eye exam: Present: normal appearance, PERRL, EOMI. Absent: scleral icterus, conjunctival injection, periorbital swelling ENT exam: Present: normal exam, mucous membranes moist Neck exam: Present: normal inspection. Absent: tenderness, meningismus, lymphadenopathy Respiratory exam: Present: normal lung sounds bilaterally. Absent: respiratory distress, wheezes, rales, rhonchi, stridor Cardiovascular Exam: Present: regular rate, normal rhythm, normal heart sounds. Absent: systolic murmur, diastolic murmur, rubs, gallop, clicks GI/Abdominal exam: Present: soft, normal bowel sounds. Absent: distended, tenderness, guarding, rebound, rigid Extremities exam: Present: normal inspection, full ROM, normal capillary refill. Absent: tenderness, pedal edema, joint swelling, calf tenderness Back exam: Present: normal inspection Neurological exam: Present: alert, oriented X3, CN II-XII intact Psychiatric exam: Present: normal affect, normal mood Skin exam: Present: warm, dry, intact, normal color. Absent: rash Course Vital Signs 04/06/22 04/06/22 04/06/22 02:28 07:47 09:18 Temperature 98 F 97.5 F L Pulse Rate 77 82 85 Respiratory 19 18 18 Rate Blood Pressure 165/84 164/61 O2 Sat by Pulse 97 95 99 Oximetry 04/06/22 04/06/22 10:58 12:02 Temperature 98.7 F Pulse Rate 79 76 Respiratory 18 18 Rate Blood Pressure 171/84 158/78 O2 Sat by Pulse 97 96 Oximetry - Reevaluation(s) Reevaluation #1: 04/06/22 Medical record is reviewed Reevaluation #2: 04/06/22 Patient remains without chest pain Reevaluation #3: 04/06/22 Informed results and questions are answered Medical Decision Making - Medical Decision Making 81 male DF for evaluation of chest pain atypical chest pain resolved upon arrival. Patient does not want admission to troponins checked negative for elevation. Patient can be discharged home - Lab Data Result diagrams: 04/06/22 02:31 04/06/22 02:31 Lab Results 04/06/22 04/06/22 04/06/22 Range/Units 02:31 02:31 02:31 WBC 10.5 (3.8-10.6) k/uL RBC 3.89 L (4.30-5.90) m/uL Hgb 11.7 L (13.0-17.5) gm/dL Hct 36.3 L (39.0-53.0) % MCV 93.2 (80.0-100.0) fL MCH 30.0 (25.0-35.0) pg MCHC 32.2 (31.0-37.0) g/dL RDW 15.6 H (11.5-15.5) % Plt Count 159 (150-450) k/uL MPV 8.6 Neutrophils % 70 % Lymphocytes % 18 % Monocytes % 7 % Eosinophils % 3 % Basophils % 1 % Neutrophils # 7.4 (1.3-7.7) k/uL Lymphocytes # 1.9 (1.0-4.8) k/uL Monocytes # 0.7 (0-1.0) k/uL Eosinophils # 0.3 (0-0.7) k/uL Basophils # 0.1 (0-0.2) k/uL PT 10.1 (9.0-12.0) sec INR 0.9 (<1.2) APTT 23.7 (22.0-30.0) sec Sodium 133 L (137-145) mmol/L Potassium 5.0 (3.5-5.1) mmol/L Chloride 98 (98-107) mmol/L Carbon Dioxide 27 (22-30) mmol/L Anion Gap 8 mmol/L BUN 36 H (9-20) mg/dL Creatinine 7.87 H* (0.66-1.25) mg/dL Est GFR (CKD-EPI)AfAm 7 (>60 ml/min/1.73 sqM) Est GFR (CKD-EPI)NonAf 6 (>60 ml/min/1.73 sqM) Glucose 98 (74-99) mg/dL Calcium 8.1 L (8.4-10.2) mg/dL Magnesium 1.4 L (1.6-2.3) mg/dL Total Bilirubin 0.4 (0.2-1.3) mg/dL AST 15 L (17-59) U/L ALT 10 (4-49) U/L Alkaline Phosphatase 78 (38-126) U/L Troponin I (0.000-0.034) ng/mL NT-Pro-B Natriuret Pep pg/mL Total Protein 5.2 L (6.3-8.2) g/dL Albumin 3.1 L (3.5-5.0) g/dL Lipase 156 (23-300) U/L 04/06/22 04/06/22 04/06/22 Range/Units 02:31 02:31 07:14 WBC (3.8-10.6) k/uL RBC (4.30-5.90) m/uL Hgb (13.0-17.5) gm/dL Hct (39.0-53.0) % MCV (80.0-100.0) fL MCH (25.0-35.0) pg MCHC (31.0-37.0) g/dL RDW (11.5-15.5) % Plt Count (150-450) k/uL MPV Neutrophils % % Lymphocytes % % Monocytes % % Eosinophils % % Basophils % % Neutrophils # (1.3-7.7) k/uL Lymphocytes # (1.0-4.8) k/uL Monocytes # (0-1.0) k/uL Eosinophils # (0-0.7) k/uL Basophils # (0-0.2) k/uL PT (9.0-12.0) sec INR (<1.2) APTT (22.0-30.0) sec Sodium (137-145) mmol/L Potassium (3.5-5.1) mmol/L Chloride (98-107) mmol/L Carbon Dioxide (22-30) mmol/L Anion Gap mmol/L BUN (9-20) mg/dL Creatinine (0.66-1.25) mg/dL Est GFR (CKD-EPI)AfAm (>60 ml/min/1.73 sqM) Est GFR (CKD-EPI)NonAf (>60 ml/min/1.73 sqM) Glucose (74-99) mg/dL Calcium (8.4-10.2) mg/dL Magnesium (1.6-2.3) mg/dL Total Bilirubin (0.2-1.3) mg/dL AST (17-59) U/L ALT (4-49) U/L Alkaline Phosphatase (38-126) U/L Troponin I 0.062 H* 0.055 H* (0.000-0.034) ng/mL NT-Pro-B Natriuret Pep 51434 pg/mL Total Protein (6.3-8.2) g/dL Albumin (3.5-5.0) g/dL Lipase (23-300) U/L - EKG Data -: EKG Interpreted by Me (EKG sinus rhythm 89 PA 186 QRS 143 QTc 454) - Radiology Data Radiology results: report reviewed (Chest x-rays negative for acute disease), image reviewed Disposition Clinical Impression: Chest pain, Atypical chest pain Disposition: HOME SELF-CARE Condition: Good Instructions (If sedation given, give patient instructions): Chest Pain (ED) Is patient prescribed a controlled substance at d/c from ED?: No Referrals: Edward Bowen MD [Primary Care Provider] - 1-2 days Time of Disposition: 07:00
[2022-04-06 02:46] LABS: Basophils # (A) 0.1 k/uL (0-0.2); Basophils % (A) 1 %; Eosinophils # (A) 0.3 k/uL (0-0.7); Eosinophils % (A) 3 %; HCT 36.3 % (39.0-53.0); HGB 11.7 gm/dL (13.0-17.5); Lymphocytes # (A) 1.9 k/uL (1.0-4.8); Lymphocytes % (A) 18 %; MCHC 32.2 g/dL (31.0-37.0); MCV 93.2 fL (80.0-100.0); Mean Platelet Volume 8.6; Monocytes # (A) 0.7 k/uL (0-1.0); Monocytes % (A) 7 %; Neutrophils # (A) 7.4 k/uL (1.3-7.7); Neutrophils % (A) 70 %; Platelet Count 159 k/uL (150-450); RBC 3.89 m/uL (4.30-5.90); RDW 15.6 % (11.5-15.5); WBC 10.5 k/uL (3.8-10.6)
[2022-04-06 03:01] LABS: INR 0.9 (<1.2); Partial Thromboplastin Time 23.7 sec (22.0-30.0); Prothrombin Time 10.1 sec (9.0-12.0)
[2022-04-06 03:05] LABS: Albumin 3.1 g/dL (3.5-5.0); Calcium 8.1 mg/dL (8.4-10.2); Magnesium 1.4 mg/dL (1.6-2.3); Total Bilirubin 0.4 mg/dL (0.2-1.3); Total Protein 5.2 g/dL (6.3-8.2)
--- NOTE | 2022-04-06 03:22 | XR ---
EXAMINATION TYPE: XR chest 2V DATE OF EXAM: 04/06/2022 COMPARISON: 09/24/2021 HISTORY: Chest pain TECHNIQUE: 2 views FINDINGS: Heart is normal. Lungs are clear of consolidation. There are no hilar masses. Costophrenic angles are clear. There are chest leads. Thoracic aorta is atheromatous. There is some minimal pleura l scarring left lung apex. IMPRESSION: No active cardiopulmonary disease. No adverse change.
[2022-04-06 07:50] VITALS: RESP 18
[2022-04-06 12:03] VITALS: BP 158/78; PULSE 76; TEMP 98.7
== END 2022-04-06 12:03 | disposition home or self-care (01) ==
LOC: EC 02:09
DX: R07.89 Other chest pain (principal); F17.209 Nicotine dependence, unspecified, with unspecified nicotine-induced disorders; Z82.49 Family history of ischemic heart disease and other diseases of the circulatory system
CPT/HCPCS: 36415; 71046; 80053; 83690; 83735; 83880; 84484; 85025; 85610; 85730; 93005; 99285

== ENCOUNTER 2022-06-01 14:20 | Emergency (ER) | payer MEDICARE ==
[2022-06-01 14:56] VITALS: TEMP 97.9
[2022-06-01] MEDS ORDERED: IPRATROPIUM-ALBUTEROL 3 ML NEB INHALATION STA (15:12)
[2022-06-01 15:20] LABS: Basophils # (A) 0.1 k/uL (0-0.2); Basophils % (A) 1 %; Eosinophils # (A) 0.3 k/uL (0-0.7); Eosinophils % (A) 2 %; HCT 41.1 % (39.0-53.0); HGB 13.7 gm/dL (13.0-17.5); Lymphocytes # (A) 1.4 k/uL (1.0-4.8); Lymphocytes % (A) 8 %; MCH 32.6 pg (25.0-35.0); MCHC 33.3 g/dL (31.0-37.0); Mean Platelet Volume 9.4; Monocytes # (A) 0.9 k/uL (0-1.0); Monocytes % (A) 5 %; Neutrophils # (A) 14.5 k/uL (1.3-7.7); Neutrophils % (A) 83 %; Platelet Count 266 k/uL (150-450); RBC 4.19 m/uL (4.30-5.90); WBC 17.5 k/uL (3.8-10.6)
[2022-06-01 15:28] LABS: Prothrombin Time 10.6 sec (9.0-12.0)
[2022-06-01 15:34] LABS: Calcium 8.9 mg/dL (8.4-10.2); Magnesium 1.6 mg/dL (1.6-2.3); Total Bilirubin 0.4 mg/dL (0.2-1.3)
--- NOTE | 2022-06-01 15:37 | XR ---
EXAMINATION TYPE: XR chest 1V portable DATE OF EXAM: 06/01/2022 COMPARISON: 04/06/2022 INDICATION: Dyspnea TECHNIQUE: Single frontal view of the chest is obtained. FINDINGS: The heart size is normal. The pulmonary vasculature is normal. The lungs are clear. IMPRESSION: 1. No acute pulmonary process.
[2022-06-01 16:12] LABS: Albumin 3.5 g/dL (3.5-5.0); Phosphorus 4.4 mg/dL (2.5-4.5); Potassium 3.6 mmol/L (3.5-5.1); Total Protein 5.8 g/dL (6.3-8.2)
[2022-06-01 17:22] VITALS: RESP 18
--- NOTE | 2022-06-01 17:38 | ED ---
General Adult HPI - General Chief complaint: Shortness of Breath Stated complaint: Low HR,Dizzy,Dr sent Time Seen by Provider: 06/01/22 15:02 Source: patient Mode of arrival: wheelchair Limitations: no limitations - History of Present Illness Initial comments: This 82-year-old male presents with daughter from doctor's office. He apparently was seeing his primary care today and they sent him in because they did not like he is in EKG from the office. The patient also presents initially with low oxygenation at 85%. He does have a history of peritoneal dialysis and renal failure. He is denying any chest pain or shortness of breath. He does have a history of atrial fibrillation as well as congestive heart failure as well. He does peritoneal dialysis every day. He denies any fevers or chills. There is no other complaints or modifying factors. - Related Data Home Medications Medication Instructions Recorded Confirmed Atorvastatin Calcium [Lipitor] 40 mg PO HS 07/02/20 06/01/22 Pantoprazole [Protonix] 40 mg PO DAILY 07/20/20 06/01/22 Lidocaine-Prilocaine Cream [Emla 1 applic TOPICAL DAILY PRN 05/14/21 06/01/22 Cream 2.5%/2.5%] Calcium Acetate [PhosLo] 667 mg PO TID-W/MEALS 05/22/21 06/01/22 Temazepam [Restoril] 15 mg PO HS PRN 10/16/21 06/01/22 Acetaminophen/Diphenhydramine 1 tab PO HS 06/01/22 06/01/22 [Tylenol PM 500-25mg] Calcium Acetate [Phoslo] 667 mg PO DAILY PRN 06/01/22 06/01/22 Lactulose 10 gm PO BID PRN 06/01/22 06/01/22 Megestrol [Megace] 40 mg PO DAILY 06/01/22 06/01/22 Metoprolol Tartrate [Lopressor] 25 mg PO BID 06/01/22 06/01/22 [place]-3/Dha/Epa/Fish Oil [Fish Oil 1 cap PO DAILY 06/01/22 06/01/22 1,000 mg Softgel] Potassium Chloride ER [K-Dur 20] 20 meq PO DAILY 06/01/22 06/01/22 [place]-Fred 1 tab PO DAILY 06/01/22 06/01/22 Zinc Gluconate [Zinc] 50 mg PO DAILY 06/01/22 06/01/22 polyethylene glycoL 3350 [Miralax] 17 gm PO DAILY PRN 06/01/22 06/01/22 traZODone HCL [Desyrel] 50 mg PO HS PRN 06/01/22 06/01/22 Previous Rx's Medication Instructions Recorded Isosorbide Mononitrate ER [Imdur] 60 mg PO DAILY #30 tablet 05/26/21 Ascorbic Acid [Vitamin C] 500 mg PO BID #60 tab 09/24/21 Cholecalciferol [Vitamin D3 (125 125 mcg PO DAILY #30 tablet 09/24/21 Mcg = 5000 Iu)] oxyCODONE HCL [OxyIR] 5 mg PO Q6H PRN 3 Days #10 tab 10/20/21 Allergies Allergy/AdvReac Type Severity Reaction Status Date / Time No Known Allergies Allergy Verified 06/01/22 17:05 Review of Systems ROS Statement: Those systems with pertinent positive or pertinent negative responses have been documented in the HPI. ROS Other: All systems not noted in ROS Statement are negative. Past Medical History Past Medical History: Atrial Fibrillation, Coronary Artery Disease (CAD), Chest Pain / Angina, Heart Failure, COPD, Dialysis, Eye Disorder, GERD/Reflux, Hypertension, Myocardial Infarction (SD), Pneumonia, Renal Disease, Vascular Disorder Additional Past Medical History / Comment(s): hemodialysis , , SA. Blind in right eye. Iron deficiency anemia, PVD , neck fx as a young person with seizures following last one years ago. + COVID 09/20/2021, uses oxygen 3L [place] PRN Last Myocardial Infarction Date:: 2013 History of Any Multi-Drug Resistant Organisms: None Reported Past Surgical History: Heart Catheterization With Stent Additional Past Surgical History / Comment(s): Bilateral cataract removal with lens implants, shunt rt thigh, non functioning shunt left arm, ports/later removed Past Anesthesia/Blood Transfusion Reactions: No Reported Reaction Date of Last Stent Placement:: 2007 Past Psychological History: Anxiety Smoking Status: Light tobacco smoker Past Alcohol Use History: None Reported Past Drug Use History: None Reported - Past Family History Son(s) Family Medical History: Cancer Father Family Medical History: Myocardial Infarction (SD) Additional Family Medical History / Comment(s): Father at age 59 of a SD Mother Family Medical History: Cancer, CVA/TIA Additional Family Medical History / Comment(s): Mother of a brain hemorrage. General Exam - General Exam Comments Initial Comments: GENERAL: The patient is well nourished and well hydrated. VITAL SIGNS: Heart rate, blood pressure, respiratory rate reviewed as recorded in nurse's notes. EYES: Pupils are round and reactive. Extraocular movements are intact. No conjunctival / lid redness or swelling. ENT: No external evidence of injury, swelling, or ecchymosis. Airway is patent. Throat is clear. NECK: Nontender. No swelling or evidence of injury. No subcutaneous emphysema. Trachea is midline. No thyroid mass. HEART: Regular rate and rhythm. Good peripheral pulses. LUNGS/CHEST: Breath sounds clear and equal bilaterally. No rales, rhonchi, or wheezes. No ecchymosis, subcutaneous emphysema, or tenderness. ABDOMEN: Abdomen soft without tenderness. No palpable masses or organomegaly. No peritoneal signs. No abdominal wall swelling or ecchymosis. EXTREMITIES: No extremity tenderness. Normal muscle tone and function. No thoracolumbar tenderness. NEUROLOGIC: Sensation is grossly intact. Cranial nerve exam reveals face is symmetrical, tongue is midline, speech is clear. SKIN: No abrasions or ecchymosis is noted. No induration or masses noted. PSYCHIATRIC: Alert and oriented. Appropriate behavior and judgment. Limitations: no limitations Course Vital Signs 06/01/22 06/01/22 06/01/22 14:51 15:10 15:28 Temperature 97.9 F Pulse Rate 70 92 88 Respiratory 24 18 Rate Blood Pressure 120/75 O2 Sat by Pulse 85 L 100 Oximetry 06/01/22 06/01/22 06/01/22 15:39 15:45 15:47 Temperature Pulse Rate 89 89 Respiratory 18 20 Rate Blood Pressure O2 Sat by Pulse 100 Oximetry 06/01/22 06/01/22 17:22 18:01 Temperature Pulse Rate 103 H 98 Respiratory 18 18 Rate Blood Pressure 122/81 O2 Sat by Pulse 95 96 Oximetry Medical Decision Making - Medical Decision Making The patient was seen and examined. EKG shows evidence of atrial fibrillation with a heart rate of 98. There is also evidence of a right bundle-branch block. There is no ST elevation identified. There is associated EKG changes with the bundle branch block. The QRS duration is 144, and the QTC intervals 447. The patient did receive oxygen via nonrebreather but this was quickly titrated down. On recheck his oxygen level was 99% on 3 L. The patient is normally on 3 L of oxygen all 24 hours a day. Chest x-ray was done which did not show any acute abnormalities. The patient also had a laboratory analysis done which does show evidence of the chronic renal failure but his potassium is normal. His BNP is elevated likely secondary to his renal failure and degree of fluid overload. His troponin came back slightly elevated as well. This was trended out and it appears as though his troponin is chronically elevated and has been elevated each of the last several times she is came to the hospital. Discussion was held regarding admission to the hospital versus discharge. The patient adamantly refuses being admitted to the hospital. Risks and benefits were discussed with patient and daughter and they would prefer to be discharged home and he refuses admission. Return parameters are discussed in detail. Close follow-up is recommended. - Lab Data Result diagrams: 06/01/22 15:05 06/01/22 15:05 Lab Results 06/01/22 06/01/22 06/01/22 Range/Units 15:05 15:05 15:05 WBC 17.5 H (3.8-10.6) k/uL RBC 4.19 L (4.30-5.90) m/uL Hgb 13.7 (13.0-17.5) gm/dL Hct 41.1 (39.0-53.0) % MCV 98.0 (80.0-100.0) fL MCH 32.6 (25.0-35.0) pg MCHC 33.3 (31.0-37.0) g/dL RDW 14.0 (11.5-15.5) % Plt Count 266 (150-450) k/uL MPV 9.4 Neutrophils % 83 % Lymphocytes % 8 % Monocytes % 5 % Eosinophils % 2 % Basophils % 1 % Neutrophils # 14.5 H (1.3-7.7) k/uL Lymphocytes # 1.4 (1.0-4.8) k/uL Monocytes # 0.9 (0-1.0) k/uL Eosinophils # 0.3 (0-0.7) k/uL Basophils # 0.1 (0-0.2) k/uL PT 10.6 (9.0-12.0) sec INR 1.0 (<1.2) APTT 25.0 (22.0-30.0) sec Sodium 135 L (137-145) mmol/L Potassium 3.6 (3.5-5.1) mmol/L Chloride 91 L (98-107) mmol/L Carbon Dioxide 27 (22-30) mmol/L Anion Gap 17 mmol/L BUN 41 H (9-20) mg/dL Creatinine 8.37 H* (0.66-1.25) mg/dL Est GFR (CKD-EPI)AfAm 6 (>60 ml/min/1.73 sqM) Est GFR (CKD-EPI)NonAf 5 (>60 ml/min/1.73 sqM) Glucose 124 H (74-99) mg/dL Calcium 8.9 (8.4-10.2) mg/dL Phosphorus 4.4 (2.5-4.5) mg/dL Magnesium 1.6 (1.6-2.3) mg/dL Total Bilirubin 0.4 (0.2-1.3) mg/dL AST 13 L (17-59) U/L ALT 9 (4-49) U/L Alkaline Phosphatase 92 (38-126) U/L Troponin I (0.000-0.034) ng/mL NT-Pro-B Natriuret Pep pg/mL Total Protein 5.8 L (6.3-8.2) g/dL Albumin 3.5 (3.5-5.0) g/dL 06/01/22 06/01/22 Range/Units 15:05 15:05 WBC (3.8-10.6) k/uL RBC (4.30-5.90) m/uL Hgb (13.0-17.5) gm/dL Hct (39.0-53.0) % MCV (80.0-100.0) fL MCH (25.0-35.0) pg MCHC (31.0-37.0) g/dL RDW (11.5-15.5) % Plt Count (150-450) k/uL MPV Neutrophils % % Lymphocytes % % Monocytes % % Eosinophils % % Basophils % % Neutrophils # (1.3-7.7) k/uL Lymphocytes # (1.0-4.8) k/uL Monocytes # (0-1.0) k/uL Eosinophils # (0-0.7) k/uL Basophils # (0-0.2) k/uL PT (9.0-12.0) sec INR (<1.2) APTT (22.0-30.0) sec Sodium (137-145) mmol/L Potassium (3.5-5.1) mmol/L Chloride (98-107) mmol/L Carbon Dioxide (22-30) mmol/L Anion Gap mmol/L BUN (9-20) mg/dL Creatinine (0.66-1.25) mg/dL Est GFR (CKD-EPI)AfAm (>60 ml/min/1.73 sqM) Est GFR (CKD-EPI)NonAf (>60 ml/min/1.73 sqM) Glucose (74-99) mg/dL Calcium (8.4-10.2) mg/dL Phosphorus (2.5-4.5) mg/dL Magnesium (1.6-2.3) mg/dL Total Bilirubin (0.2-1.3) mg/dL AST (17-59) U/L ALT (4-49) U/L Alkaline Phosphatase (38-126) U/L Troponin I 0.078 H* (0.000-0.034) ng/mL NT-Pro-B Natriuret Pep 52683 pg/mL Total Protein (6.3-8.2) g/dL Albumin (3.5-5.0) g/dL Disposition Clinical Impression: Chronic renal failure, Right bundle branch block, Hypoxia Disposition: HOME SELF-CARE Condition: Stable Instructions (If sedation given, give patient instructions): Chronic Kidney Disease (ED) Is patient prescribed a controlled substance at d/c from ED?: No Referrals: Edward Bowen MD [Primary Care Provider] - 1-2 days Time of Disposition: 17:38
[2022-06-01 18:02] VITALS: BP 122/81; PULSE 98
== END 2022-06-01 18:02 | disposition home or self-care (01) ==
LOC: EC 14:20
DX: I13.0 Hypertensive heart and chronic kidney disease with heart failure and stage 1 through stage 4 chronic kidney disease, or unspecified chronic kidney disease (principal); N18.9 Chronic kidney disease, unspecified; R09.02 Hypoxemia; I45.10 Unspecified right bundle-branch block; I50.9 Heart failure, unspecified; I25.10 Atherosclerotic heart disease of native coronary artery without angina pectoris; J44.9 Chronic obstructive pulmonary disease, unspecified; K21.9 Gastro-esophageal reflux disease without esophagitis; I25.2 Old myocardial infarction; Z86.79 Personal history of other diseases of the circulatory system; Z86.16 Personal history of COVID-19; Z72.0 Tobacco use; Z99.2 Dependence on renal dialysis; Z79.02 Long term (current) use of antithrombotics/antiplatelets; Z79.899 Other long term (current) drug therapy
CPT/HCPCS: 36415; 71045; 80053; 83735; 83880; 84100; 84484; 85025; 85610; 85730; 93005; 94640; 99284